=== PATIENT | female | born 1975 | race Caucasian/White ===

== ENCOUNTER 2022-03-15 20:37 | Inpatient (IN) ==
[2022-03-15] MEDS ORDERED: AMPICILLIN/SULBACTAM SOD 3,000 MG in 0.9 % SODIUM CHLORIDE 100 ML IV STA (20:47)
--- NOTE | 2022-03-15 21:10 | Emergency Department Note ---
History of Present Illness General Chief complaint: Animal Bite Stated complaint: CAT BITE ON R HAND, SWELLING Time Seen by Provider: 03/15/22 20:47 History of Present Illness Maximum Pain Intensity: 4 46-year-old female presents to the ED with a chief complaint of a right hand infection. The patient states that she was bitten by a cat where she works at a local [employer]. The patient states that she did start antibiotics yesterday. She has had 3 doses of the antibiotic. Through the day today the patient's redness significant increased even over the past several hours, she states that the redness has increased. She reports some redness traveling up the arm towards the elbow. She also feels some discomfort in the medial proximal arm and axillary area. She states that she felt a little feverish during the day today and took some ibuprofen but did not take her temperature. No vomiting. No additional complaints at this time. The cats immunizations were up-to-date. Home Medications Medication Instructions Recorded Confirmed Type alprazolam 0.25 mg tablet 0.25 mg PO TID PRN Anxiety 03/15/22 03/15/22 History amoxicillin 875 mg-potassium 1 tab PO BID 03/15/22 03/15/22 History clavulanate 125 mg tablet paroxetine HCl 40 mg tablet 40 mg PO DAILY 03/15/22 03/15/22 History Allergies Allergy/AdvReac Type Severity Reaction Status Date / Time No Known Allergies Allergy Unknown Verified 01/22/05 08:58 Past Med/Surg History Medical History (Updated 03/15/22 @ 21:43 by Luna Valdez PA-C) Anxiety and depression Surgical History (Updated 03/15/22 @ 21:43 by Luna Valdez PA-C) History of colposcopy Family History (Updated 03/15/22 @ 21:44 by Luna Valdez PA-C) Other Cancer Diabetes Social History (Updated 03/15/22 @ 21:44 by Luna Valdez PA-C) Smoking Status: Never smoker Hx Alcohol Use: No Hx Substance Use: No Preferred Language: Sinhala Feels Safe at Home: Yes Review of Systems A total of 10 systems reviewed and were otherwise negative Physical Exam Vital Signs Vital Signs - 24 hr 03/15/22 20:38 03/15/22 21:48 Temperature 36.5 C Temperature Source Temporal Artery Scan Pulse Rate 92 H Pulse Rate [Finger] 81 Respiratory Rate 18 18 Respiratory Effort / Characteristics Non-Labored Spontaneous Respiratory Depth Normal Normal Respiratory Pattern Regular Blood Pressure 131/79 Blood Pressure [Right Arm] 126/70 Blood Pressure Mean 96 Blood Pressure Mean [Right Arm] 88 Blood Pressure Position [Right Arm] Sitting Pulse Oximetry 97 96 Oxygen Delivery Method Room Air Room Air Sepsis New/Unexplained Change in Mental Status N/A Sepsis Action Taken by Nursing No Action Required CONSTITUTIONAL/VITAL SIGNS: Reviewed / noted above. GENERAL: Non-toxic in appearance. INTEGUMENTARY: Warm, dry, and [place]. HEAD: Normocephalic. EYES: without scleral icterus or trauma. ENT/OROPHARYNX: clear and moist. LYMPHADENOPATHY/NECK: Is supple without lymphadenopathy or meningismus. RESPIRATORY: Clear to auscultation bilaterally. No increased work of breathing. CARDIOVASCULAR: Regular rate and rhythm. EXTREMITIES: Warm and well perfused. The patient has erythema to the right dorsal hand involving the right thumb where she was bitten as well as the dorsal aspect of the hand on the radial side to the area of the fourth metacarpal. The erythema and swelling also travels proximally to about the wrist. There is a red streak traveling up the medial right forearm to just distal to the elbow. NEUROLOGICAL: Intact without focal deficits. PSYCHIATRIC: normal affect. MUSCULOSKELETAL: Normally developed with good muscle tone. TRIAGE NURSING DOCUMENTATION REVIEWED. Course Administered Medications Ampicillin Sodium/Sulbactam Sodium 3,000 mg/ Sodium Chloride 108 mls @ 200 mls/hr IV NOW STA; Protocol Stop: 03/15/22 21:19 Last Admin: 03/15/22 21:39 Dose: 200 mls/hr Documented By: RASHAWN Medical Decision Making Differential Diagnosis Cellulitis, abscess, MRSA infection, DVT, necrotizing fasciitis, dermatitis, drug eruption, allergic reaction, as well as other pathologies. Medical Records Attestation: I reviewed the patient's medical records. Home Medications Current Medication List: was personally reviewed by me Laboratory Data Attestation: I reviewed the patient's lab results. Result diagrams: 03/15/22 21:25 03/15/22 21:25 Lab Results 03/15/22 Range/Units 21:25 WBC 11.93 H (4.8-10.8) K/ul RBC 4.32 (3.93-5.22) M/uL Hgb 13.4 (12.0-16.0) g/dl Hct 39.5 (34.1-44.9) % MCV 91.4 (80.0-100.0) fL MCH 31.0 (25.0-34.0) pg MCHC 33.9 (32.0-36.0) g/dL RDW Std Deviation 41.0 (36.4-46.3) fL RDW Coeff of Le 12.1 (11.5-14.5) % Plt Count 203 (130-400) K/uL MPV 10.6 (9.4-12.3) fL Immature Gran % (Auto) 0.4 % Neut % (Auto) 79.6 % Lymph % (Auto) 13.2 % [place] % (Auto) 5.1 % Eos % (Auto) 1.3 % Baso % (Auto) 0.4 % Neut # (Auto) 9.49 H (1.4-6.5) K/uL Lymph # (Auto) 1.57 (1.2-3.4) K/uL [place] # (Auto) 0.61 (0.24-0.82) K/uL Eos # (Auto) 0.16 (0-0.50) K/uL Baso # (Auto) 0.05 (0-0.2) K/uL Immature Gran # (Auto) 0.05 H (0.00-0.02) K/uL MDM Narrative 46-year-old female presents with a progressively worsening cellulitis of the right hand with some lymphangitis changes. She has taken 3 doses of Augmentin already. Despite this the swelling and redness is worsening. She was started on Unasyn. CBC was unremarkable. Impression & Plan Bite by animal, Cellulitis of hand, right, Lymphangitis Discharge Plan Visit Data Chief Complaint: Animal Bite Stated Complaint: CAT BITE ON R HAND, SWELLING ED Provider: Osmel Granados Discharge Problem: Bite by animal, Cellulitis of hand, right, Lymphangitis Patient Disposition: Being Evaluated by Hospitalist Forms Stand Alone Forms: [facility] Prescriptions Prescriptions: No Action alprazolam 0.25 mg tablet 0.25 mg PO TID PRN (Reason: Anxiety) paroxetine HCl 40 mg tablet 40 mg PO DAILY amoxicillin-pot clavulanate 875-125 mg tablet 1 tab PO BID Rx Instructions: Started 03/14/22, 10 day course Referrals Referrals: Samm Costa MD [Primary Care Provider] -
--- NOTE | 2022-03-15 21:26 | History & Physical Report ---
Date of Service March 15, 2022 Assessment & Plan (1) Bite by animal: (2) Cellulitis of hand, right: Plan: Patient is 46 y/o F with PMH anxiety, depression presented to ER with c/o cat bite to right hand yesterday. Cat up to date with vaccinations. Had tetanus shot 03/14/22. Started Augmentin yesterday however increased edema and redness to right hand. In ER vitals stable. Labs still pending Blood cultures pending In ER given Unasyn Assessment and plan per Dr Alatorre. See addendum. (3) Anxiety and depression: History of Present Illness Chief Complaint: cat bite Primary Care Provider: Samm Costa MD Patient is 46 y/o F with PMH anxiety, depression presented to ER with c/o cat bite to right hand yesterday. Reports bite to right thumb. 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 Saw PCP yesterday, was started on Augmentin. Took 3 doses however has had increased erythema to right thumb and hand. Tactile fever, didn't take her temperature. Took ibuprofen with some relief. Tetanus shot yesterday at PCP's office. Denies diaphoresis, N/V/D/C, JIMÉNEZ, dizziness, syncope, vision changes, neck pain, CP, SOB, orthopnea, palpitations, cough, sore throat, choking, otalgia, rhinorrhea, abdominal pain, paresthesias, weakness, extremity weakness, extremity edema, other rashes, urinary symptoms. Allergies Allergy/AdvReac Type Severity Reaction Status Date / Time No Known Allergies Allergy Unknown Verified 01/22/05 08:58 Home Medications Medication Instructions Recorded Confirmed Type alprazolam 0.25 mg tablet 0.25 mg PO TID PRN Anxiety 03/15/22 03/15/22 History amoxicillin 875 mg-potassium 1 tab PO BID 03/15/22 03/15/22 History clavulanate 125 mg tablet paroxetine HCl 40 mg tablet 40 mg PO DAILY 03/15/22 03/15/22 History Past Med/Surg History Medical History (Updated 03/15/22 @ 21:43 by Luna Valdez PA-C) Anxiety and depression Surgical History (Updated 03/15/22 @ 21:43 by Luna Schreckengost, PA-C) History of colposcopy Family History (Updated 03/15/22 @ 21:44 by Luna Valdez PA-C) Other Cancer Diabetes Social History (Updated 03/15/22 @ 21:44 by Luna Valdez PA-C) Smoking Status: Never smoker Hx Alcohol Use: No Hx Substance Use: No Preferred Language: Moldovan Feels Safe at Home: Yes Review of Systems Review of Systems: All systems reviewed & are unremarkable except as noted in HPI & below Physical Exam Physical Exam: General: no distress, overweight Head: normocephalic, atraumatic Eyes: conjunctiva non-injected, anicteric ENT: normal inspection external ears, nose, mucous membranes moist Neck: supple, trachea midline Lungs: clear, no respiratory distress, no wheezing/rhonchi/rales CV: RRR, no murmur, no pretibial edema Abd: normal BS, soft, non-tender Ext: no cyanosis, no calf tenderness; RUE: Right thumb with puncture wounds with erythema and edema, dorsal aspect right hand with erythema, edema and warmth, +excoriations right wrist, +red streak forearm Neuro: A&O x 3, no focal deficits noted, normal affect Skin: warm, dry, +tattoos upper extremities Results & Data Results & Data ([facility]) Vital Signs (Past 12 Hours) Vital Signs Temp Pulse Resp BP Pulse Ox O2 Del Method 03/15/22 20:38 36.5 C 92 H 18 131/79 97 Room Air Supervising Physician Co-Signing Physician Notes IM ATTENDING : Patient seen and examined. History obtained from patient and records. Preceding documentation by Ms. Luna Valdez PA-C reviewed. FINAL ASSESSMENT AND PLAN as follows : Right hand cellulitis secondary to cat bite Now extending to right forearm Failed outpatient treatment No sepsis for now Rule out abscess Anxiety/mood disorder at baseline Hypothyroidism, euthyroid as of recent outpatient TSH, currently not on maintenance medications Hyperglycemia rule out DM GMF Unasyn CT right hand May need Orthopedics evaluation. Check hemoglobin A1c DVT prophylaxis per Lovenox subcu Full code Text document was generated using [employer] voice recognition software. It may contain grammatical or spelling errors. Kindly contact undersigned for clarification of any documentation item in question.
[2022-03-15 21:46] LABS: Basophils # (auto) 0.05 K/uL (0-0.2); Basophils % (auto) 0.4 %; Eosinophils # (auto) 0.16 K/uL (0-0.50); Eosinophils % (auto) 1.3 %; Hematocrit (blood only) 39.5 % (34.1-44.9); Hemoglobin 13.4 g/dl (12.0-16.0); Immature Granulocytes # (auto) 0.05 K/uL (0.00-0.02); Immature Granulocytes % (auto) 0.4 %; Lymphocytes # (auto) 1.57 K/uL (1.2-3.4); Lymphocytes % (auto) 13.2 %; Mean Corpuscular Hgb Conc 33.9 g/dL (32.0-36.0); Mean Corpuscular Volume 91.4 fL (80.0-100.0); Mean Platelet Volume 10.6 fL (9.4-12.3); Monocytes # (auto) 0.61 K/uL (0.24-0.82); Monocytes % (auto) 5.1 %; Neutrophils # (auto) 9.49 K/uL (1.4-6.5); Neutrophils % (auto) 79.6 %; Platelet Count 203 K/uL (130-400); RDW Coefficient of Variation 12.1 % (11.5-14.5); Red Blood Count 4.32 M/uL (3.93-5.22); White Blood Count 11.93 K/ul (4.8-10.8)
[2022-03-15] MEDS ORDERED: SODIUM CHLORIDE 0.9% 1000ML 1,000 ML IV STA (21:46)
[2022-03-15 22:09] LABS: Albumin Globulin Ratio 1.7 (0.9-2); BUN Creatinine Ratio 19.5 (10-20); Bilirubin,Total 0.6 mg/dl (0.2-1.0); Calcium 8.3 mg/dl (8.5-10.1); Creatinine Clr Calc Pharmacy 103.7 ml/min; Est GFR (African American) 106.6 ml/min; Est GFR (Non-African American) 91.9 ml/min; Globulin 2.4 gm/dl (2.5-4.0); Potassium 3.6 mmol/L (3.5-5.1); Total Protein 6.4 gm/dl (6.0-8.3)
[2022-03-15] MEDS ORDERED: PROMETHAZINE HCL 12.5 MG in SODIUM CHLORIDE 0.9% 50 ML IV PRN (22:26)
[2022-03-15] MEDS ORDERED: IBUPROFEN 200 MG TAB PO PRN (22:26)
[2022-03-15] MEDS ORDERED: KETOROLAC TROMETHAMINE 15 MG/ML VIAL IV ONE (22:26)
[2022-03-15] MEDS ORDERED: KETOROLAC TROMETHAMINE 15 MG/ML VIAL IV PRN (22:26)
[2022-03-15] MEDS ORDERED: CALCIUM GLUCONATE 1,000 MG/60 ML BAG IV STA (23:07)
[2022-03-15] MEDS ORDERED: CALCIUM GLUCONATE 1000 MG/60 ML NSS IV ONE (23:13)
[2022-03-16] MEDS ORDERED: OPTIRAY 300 100mL IV ONE (00:44)
[2022-03-16] MEDS ORDERED: ALPRAZolam 0.25 MG TABLET PO PRN (00:55)
[2022-03-16] MEDS: AMPICILLIN/SULBACTAM SOD 3,000 MG in 0.9 % SODIUM CHLORIDE 100 ML IV SCH ×3 (04:11→17:04)
[2022-03-16] MEDS: ACETAMINOPHEN 325 MG TAB PO PRN ×2 (04:51→15:43)
--- NOTE | 2022-03-16 07:05 | CT Scan Report ---
CT OF THE RIGHT HAND WITH CONTRAST CLINICAL HISTORY: Right hand swelling following cat bite. COMPARISON STUDY: No previous studies for comparison. TECHNIQUE: Axial images of the right hand were obtained following intravenous injection of 94 cc of O ptiray 300. Sagittal and coronal reconstructions were viewed. Automated exposure control was utilized for the study. A dose lowering technique was utilized adhering to the principles of ALARA. FINDINGS: Alignment of right hand is anatomic. No acute fracture. There is no CT evidence for acute o steomyelitis. No rim-enhancing fluid collection within the right hand or wrist is identified to sugge st an abscess. Right hand and wrist soft tissue swelling with subcutaneous fluid is greater dorsally. No soft tissue gas is present. Carpal bones are intact. Distal right radius and ulna are intact. IMPRESSION: Right hand and wrist subcutaneous edema, greater dorsally. This suggests cellulitis. No rim-enhancing fluid collection to suggest abscess. No soft tissue gas. No evidence for acute osteomyelitis by CT. ACT 112: Negative or not required by law. Electronically signed by: Sean White M.D. 03/16/2022 7:03 CLARE
[2022-03-16 07:18] LABS: Basophils # (auto) 0.04 K/uL (0-0.2); Basophils % (auto) 0.4 %; Eosinophils # (auto) 0.15 K/uL (0-0.50); Eosinophils % (auto) 1.6 %; Hematocrit (blood only) 38.2 % (34.1-44.9); Hemoglobin 12.9 g/dl (12.0-16.0); Immature Granulocytes # (auto) 0.03 K/uL (0.00-0.02); Immature Granulocytes % (auto) 0.3 %; Lymphocytes % (auto) 13.6 %; Mean Corpuscular Hemoglobin 30.9 pg (25.0-34.0); Mean Corpuscular Hgb Conc 33.8 g/dL (32.0-36.0); Mean Corpuscular Volume 91.6 fL (80.0-100.0); Mean Platelet Volume 10.7 fL (9.4-12.3); Monocytes % (auto) 6.3 %; Neutrophils # (auto) 7.45 K/uL (1.4-6.5); Neutrophils % (auto) 77.8 %; Platelet Count 169 K/uL (130-400); RDW Coefficient of Variation 12.4 % (11.5-14.5); RDW Standard Deviation 41.3 fL (36.4-46.3); Red Blood Count 4.17 M/uL (3.93-5.22); White Blood Count 9.57 K/ul (4.8-10.8)
[2022-03-16 07:37] LABS: Calcium 8.1 mg/dl (8.5-10.1); Creatinine Clr Calc Pharmacy 125.6 ml/min; Est GFR (African American) 123.8 ml/min; Est GFR (Non-African American) 106.8 ml/min; Potassium 4.1 mmol/L (3.5-5.1)
[2022-03-16 08:08] LABS: Estimated Average Glucose 111 mg/dl; Hemoglobin A1C 5.5 % (4.5-5.6)
[2022-03-16] MEDS: PARoxetine HCL 20 MG TAB PO SCH (08:28)
[2022-03-16] MEDS ORDERED: ENOXAPARIN INJ 40 MG/0.4 ML SYR SQ SCH (09:00)
--- NOTE | 2022-03-16 09:58 | Hospitalist Progress Note ---
Date of Service March 16, 2022 Assessment & Plan (1) Cellulitis of hand, right: (2) Cat bite: Plan 46 year old female who presented to the ED with worsening right hand cellulitis after cat bite on , worsening despite OP Augmentin x3 doses. 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 Cat bite right thumb (03/14) with right hand cellulitis - Received OP augmentin for 3 days but her cellulitis was rapidly progressing so came to the ED 03/15 and was started on Unasyn - Doesn't meet SIRS or sepsis critieria. No fever, mild leucocytosis resolved. Well looking - CT hand 03/15- Right hand and wrist subcutaneous edema, greater dorsally. This suggests cellulitis. No rim-enhancing fluid collection to suggest abscess. No soft tissue gas. No evidence for acute osteomyelitis by CT. - Continue Unasyn. Continue betadine soaks and RUE elevation. Monitor clinically for improvement. Per RN pus was able to express with soaks and was sent for culture - If clinically worsens, will need to consider MRI right hand and plastic/ID eval. - The cat is uptodate with vaccination and she is uptodate with her tetanus shot 03/14. Anxiety- on paxil. xanax prn DVT ppx- sc lovenox Dispo- Continue IV antibiotics- anticipate will need at least 24-48 more hours of IV ABx. Follow clx results Admission and Anticipated Discharge Date Admission Date: March 15, 2022 Subjective Still has pain and swelling of right upper extremity. Redness has extended beyond the mode she made the other day. No fever, chills, N/V. Physical Exam Physical Exam: General: Lying comfortably in bed, not in distress, on room air HEENT: EOMI, KLILIAN, MMM Chest: Clear breath sounds bilaterally, no wheezes or crackles CVS: Regular rate and rhythm, normal heart sounds, no murmur Abdomen: Soft, non tender, not distended, normal bowel sounds Neuro: Awake, alert, oriented, conversing well, non focal Extremities: Right thumb with puncture wound. RUE with cellulitis extending upto the dorsum of right hand and forearm. Able to make a fist with some difficulty. Tattoos in her right forearm make it difficult to appreciate the extent of cellulitis Results & Data Results & Data ([facility] [place]) Vital Signs (Past 12 Hours) Vital Signs Temp Pulse Resp BP Pulse Ox O2 Del Method 03/16/22 07:52 36.8 C 70 16 127/77 97 Room Air 03/16/22 00:55 36.9 C 73 16 135/77 97 03/16/22 00:58 36.9 C 73 16 135/77 97 Room Air 03/15/22 23:29 Room Air 03/15/22 23:23 69 20 126/89 97 Room Air Laboratory Results Short CBC 03/15/22 03/16/22 Range/Units 21:25 06:37 WBC 11.93 H 9.57 (4.8-10.8) K/ul Hgb 13.4 12.9 (12.0-16.0) g/dl Hct 39.5 38.2 (34.1-44.9) % Plt Count 203 169 (130-400) K/uL BMP 03/15/22 03/16/22 21:25 06:37 Sodium 135 L 139 Potassium 3.6 4.1 Chloride 103 109 H Carbon Dioxide 25 23 BUN 15 12 Creatinine 0.77 0.63 Glucose 112 H 123 H Calcium 8.3 L 8.1 L Liver Function 03/15/22 Range/Units 21:25 Total Bilirubin 0.6 (0.2-1.0) mg/dl AST 15 (13-39) U/L ALT 21 (7-52) U/L Alkaline Phosphatase 83 (34-104) U/L Albumin 4.0 (3.4-5.0) gm/dl Diagnostic Findings Hand CT 03/15/22 22:22 CT OF THE RIGHT HAND WITH CONTRAST CLINICAL HISTORY: Right hand swelling following cat bite. COMPARISON STUDY: No previous studies for comparison. TECHNIQUE: Axial images of the right hand were obtained following intravenous injection of 94 cc of Optiray 300. Sagittal and coronal reconstructions were viewed. Automated exposure control was utilized for the study. A dose lowering technique was utilized adhering to the principles of ALARA. FINDINGS: Alignment of right hand is anatomic. No acute fracture. There is no CT evidence for acute osteomyelitis. No rim-enhancing fluid collection within the right hand or wrist is identified to suggest an abscess. Right hand and wrist soft tissue swelling with subcutaneous fluid is greater dorsally. No soft tissue gas is present. Carpal bones are intact. Distal right radius and ulna are intact. IMPRESSION: Right hand and wrist subcutaneous edema, greater dorsally. This suggests cellulitis. No rim-enhancing fluid collection to suggest abscess. No soft tissue gas. No evidence for acute osteomyelitis by CT. ACT 112: Negative or not required by law. Electronically signed by: Sean White M.D. 03/16/2022 7:03 AMZ Medications Administered Current Inpatient Medications Acetaminophen (Acetaminophen 325 Mg Tab) 650 mg PO Q4H PRN PRN Reason: Pain or Fever Stop: 04/15/22 00:54 Last Admin: 03/16/22 04:51 Dose: 650 mg Alprazolam (Alprazolam 0.25 Mg Tablet) 0.25 mg PO TID PRN PRN Reason: Anxiety Stop: 04/15/22 00:54 Enoxaparin Sodium (Enoxaparin Inj 40 Mg/0.4 Ml Syr) 40 mg SQ QAM YAYA Stop: 04/15/22 08:59 Last Admin: 03/16/22 08:29 Dose: Not Given Promethazine HCl 12.5 mg/ (Sodium Chloride) 50.5 mls @ 202 mls/hr IV Q6H PRN PRN Reason: Nausea And Vomiting Stop: 04/14/22 22:25 Ampicillin Sodium/Sulbactam Sodium 3,000 mg/ Sodium Chloride 108 mls @ 200 mls/hr IV Q6H [facility]; Protocol Stop: 03/23/22 03:59 Last Infusion: 03/16/22 09:02 Dose: Infused Ibuprofen (Ibuprofen 200 Mg Tab) 200 mg PO Q6H PRN PRN Reason: Mild Pain Stop: 04/14/22 22:25 Last Admin: 03/15/22 23:17 Dose: 200 mg Ketorolac Tromethamine (Ketorolac Tromethamine 15 Mg/Ml Vial) 15 mg IV Q4H PRN PRN Reason: Pain Stop: 03/20/22 22:25 Last Admin: 03/16/22 09:59 Dose: 15 mg Paroxetine HCl (Paroxetine Hcl 20 Mg Tab) 40 mg PO DAILY YAYA Stop: 04/15/22 08:59 Last Admin: 03/16/22 08:28 Dose: 40 mg
[2022-03-16] MEDS ORDERED: oxyCODONE HCL IR 5 MG TAB (IMMEDIATE RELEASE) PO PRN (13:24)
[2022-03-16] MEDS ORDERED: VANCOMYCIN CONSULT ACTIVE PRN (14:01)
[2022-03-16] MEDS ORDERED: HYDROmorphone INJ 0.5 MG/0.5 ML SYR ONE (14:23)
[2022-03-16] MEDS ORDERED: KETOROLAC 30 MG/ML VIAL IV PRN (14:35)
--- NOTE | 2022-03-16 14:45 | Pharmacy Report ---
Pharmacy PK ABX Note - Date of Service March 16, 2022 - Assessment and Plan Assessment 46 year old F receiving vancomycin/Unasyn for treatment of cat bite. Pertinent microbiologic data includes: N//A. Day # 1 of antimicrobial therapy. Plan Vancomycin * Loading dose: 2250 mg IV x 1 * Maintenance dose: 1500 mg IV every 24 hours * Regimen is predicted to achieve target AUC/CIERA of 400-600 mg/L.hr * Level to be ordered based upon duration of therapy Pharmacy will continue to follow and will adjust dose/frequency as necessary. Thank you. Pharmacy has transitioned to AUC monitoring for vancomycin. AUC/CIERA is the preferred PK/PD target and is associated with decreased risk of nephrotoxicity compared to traditional trough targets.
[2022-03-16] MEDS ORDERED: VANCOMYCIN HCL 2,250 MG in SODIUM CHLORIDE 0.9% 500 ML IV ONE ×2 (15:00→18:00)
[2022-03-16] MEDS ORDERED: GADOBUTROL 30ML VIAL IV ONE (17:14)
--- NOTE | 2022-03-16 18:10 | History and Physical Report ---
CHIEF COMPLAINT: Special attention to right thumb infection. HISTORY OF PRESENT ILLNESS: This is a 46-year-old female, who is status post cat bite to the right t humb on . 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 She noted increasing pain and swelling. S he was started on Augmentin and had 3 doses with increasing redness and pain in the extremity, partic ularly in the thumb. She has complaints of severe pain with thumb motion. Denies other systemic sym ptoms currently. PAST MEDICAL HISTORY: History of anxiety, depression. MEDICATIONS: 1. Alprazolam. 2. Augmentin for this injury. 3. Paroxetine. SOCIAL HISTORY: Does not smoke. REVIEW OF SYSTEMS: Denies diabetes. PHYSICAL EXAMINATION: Right thumb exam, she has puncture wound over the dorsal MP joint and over the volar aspect of the flexor tendon in the region of the oblique miguel. She has pain with passive ex tension of the thumb. She has fusiform swelling and tenderness directly over the flexor tendon sheat h of the thumb. She holds the finger in a flexed posture. She has severe pain with passive extensio n of the thumb. She has no significant tenderness in the thenar webspace. She has significant pain with MP range of motion. 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 Right hand septic flexor tenosynovitis of the thumb. 2. Possible right MP joint septic arthritis. PLAN: Discussed findings and treatment with her and I felt this likely represents early septic flexo r tenosynovitis, which is worsening with time. I feel this is best served with surgical treatment an d I feel this is unlikely to get better with antibiotics alone. We will plan for, 1. Right thumb irrigation and debridement of septic flexor tenosynovitis. 2. Right thumb possible MP joint arthrotomy and drainage. 3. Possible I and D of abscess, right hand. She has pending MRI. We will evaluate this further. We will [facility] when she is n.p.o. The risks and benefits have been discussed including, but not limited to, risk of infection, nerve in jury, stiffness, loss of motion, failure to improve, etc. Reasonable outcomes and options of treatmen t were discussed. An explanation of appropriate alternatives to the procedure that may be advantageou s were discussed and their risks and benefits, as well as the risks and benefits of not proceeding wi treatment. I offered to answer any additional inquiries concerning the treatment involved. All the patients questions were answered. The patient is agreeable, understanding of the treatment plan and alternatives, and wishes to proceed with the treatment plan. We will hold her subcutaneous Lovenox. Job ID: [id number]
--- NOTE | 2022-03-16 19:40 | Magnetic Resonance Report ---
MRI OF THE RIGHT HAND COMBO CLINICAL HISTORY: Cat bite infection. COMPARISON STUDY: CT scan of the right hand dated 03/16/2022. TECHNIQUE: MRI of the right hand is performed utilizing various T1 and T2-weighted sequences in axial , sagittal, and coronal planes. Contrast-enhanced sequences are acquired following the IV administrat ion of 9 mL of gadolinium contrast. FINDINGS: There is no MRI evidence of fracture. No marrow edema is seen typical for osteomyelitis. Mi nimal cystic degenerative change is present in the head of the fifth metatarsal. There is significant soft tissue edema identified around the hand, greatest dorsally. No organized/peripherally enhancing fluid collection is seen to indicate abscess. The visualized flexor and extensor tendons appear inta ct. There is fluid and enhancement seen around several of the extensor tendons, likely representing t enosynovitis. The regional musculature is normal in bulk and signal intensity. IMPRESSION: 1. No acute bony abnormality is identified. 2. Significant soft tissue edema is present in the right hand, greatest dorsally. The appearance is t ypical for cellulitis. 3. There is no organized fluid collection to indicate abscess. 4. There is evidence of tenosynovitis of the extensor tendons. Dictated: 03/16/2022 6:06 PM Transcribed: 03/16/2022 7:35 PM Charlette [id number] [email or web address] Electronically signed by: Toni Gonzalez M.D. 03/16/2022 7:39 PM
[2022-03-16] MEDS ORDERED: diphenhydrAMINE 50 MG/ML VIAL IV STA (20:09)
[2022-03-16] MEDS ORDERED: DOXYCYCLINE HYCLATE 100 MG in DEXTROSE 5% 100 ML IV STA (20:09)
--- NOTE | 2022-03-16 20:09 | Communication Note ---
Date of Service: March 16, 2022 Patient with generalized pruritus during vancomycin infusion as per RN. No chest pain, no SOB, no wheezing. AP Vancomycin hypersensitivity IV Benadryl now Hold vancomycin and add to patient's allergy/ADR list. Doxycycline in place of vancomycin for MRSA coverage. Will relay to AM provider.
[2022-03-16] MEDS: HYDROmorphone INJ 0.5 MG/0.5 ML SYR IV PRN (23:25)
[2022-03-17] MEDS: AMPICILLIN/SULBACTAM SOD 3,000 MG in 0.9 % SODIUM CHLORIDE 100 ML IV SCH ×5 (00:23→23:16)
[2022-03-17] MEDS ORDERED: VANCOMYCIN HCL 1,500 MG in SODIUM CHLORIDE 0.9% 500 ML IV SCH (04:00)
[2022-03-17] MEDS ORDERED: SODIUM CHLORIDE 0.9% 1000ML 1,000 ML IV ONE (05:10)
[2022-03-17] MEDS ORDERED: fentaNYL citrate 100 MCG/2 ML VIAL ONE ×2 (06:56→08:10)
[2022-03-17] MEDS ORDERED: MIDAZOLAM HCL 1 MG/ML 2ML VIAL ONE (06:56)
[2022-03-17] MEDS ORDERED: BUPIVACAINE 0.5 % 5 MG/1 ML MPF 30ML VIAL ONE (06:56)
--- NOTE | 2022-03-17 07:09 | Anesthesiology Consultation ---
Date of Service March 17, 2022 Assessment & Plan (1) Encounter for pre-operative examination: Chart Review Chart Review: Acceptable Risk for Surgery History Surgery Operation Date: 03/17/22 07:30 Proposed Procedures p Incision and Drainage Right Hand and Right Thumb(Right) - Inder Kim MD Height/Weight Height: 5 ft 6 in Weight: 91.231 kg Allergies Allergy/AdvReac Type Severity Reaction Status Date / Time vancomycin Allergy Mild Verified 03/16/22 20:08 Medications Home Medications Medication Instructions Recorded Confirmed Last Taken alprazolam 0.25 mg tablet 0.25 mg PO TID PRN Anxiety 03/15/22 03/15/22 Unknown amoxicillin 875 mg-potassium 1 tab PO BID 03/15/22 03/15/22 03/15/22 clavulanate 125 mg tablet paroxetine HCl 40 mg tablet 40 mg PO DAILY 03/15/22 03/15/22 03/15/22 Active Medications Generic Name Dose Route Start Last Admin Trade Name Freq PRN Reason Stop Dose Admin Acetaminophen 650 mg 03/16/22 00:55 03/16/22 15:43 Acetaminophen 325 Mg Tab PO 04/15/22 00:54 650 mg Q4H PRN Administration Pain or Fever Enoxaparin Sodium 40 mg 03/16/22 09:00 03/16/22 08:29 Enoxaparin Inj 40 Mg/0.4 Ml Syr SQ 04/15/22 08:59 Not Given QAM YAYA Hydromorphone HCl 0.5 mg 03/16/22 13:29 03/16/22 23:25 Hydromorphone Inj 0.5 Mg/0.5 Ml Syr IV 03/30/22 13:28 0.5 mg Q6H PRN Administration sev pain not controlled w oxy Ampicillin Sodium/Sulbactam 108 mls @ 200 mls/hr 03/16/22 04:00 03/17/22 05:53 Sodium 3,000 mg/ Sodium IV 03/23/22 03:59 Infused Chloride Q6H [facility] Infusion Protocol Sodium Chloride 1,000 mls @ 80 mls/hr 03/17/22 05:10 03/17/22 05:54 Nss 1000ml IV 03/17/22 17:39 80 mls/hr .[id number] ONE Administration Oxycodone HCl 5 - 10 mg 03/16/22 13:24 03/16/22 15:35 Oxycodone Hcl Ir 5 Mg Tab (Immediate Release) PO 03/30/22 13:23 10 mg Q4 PRN Administration mod-sev pain Paroxetine HCl 40 mg 03/16/22 09:00 03/16/22 08:28 Paroxetine Hcl 20 Mg Tab PO 04/15/22 08:59 40 mg DAILY YAYA Administration Past Medical History Medical History Anxiety and depression Past Family History Family History Other Cancer Diabetes Past Surgical History Surgical History History of colposcopy Social History Smoking Status: Never smoker Do You Dip or Chew Tobacco: No Hx Alcohol Use: No Hx Substance Use: No Physical Exam Vital Signs Last Vital Signs Temp 36.9 C 03/16/22 22:22 Pulse 85 03/16/22 22:22 Resp 16 03/16/22 22:22 BP 102/62 03/16/22 22:22 Pulse Ox 96 03/16/22 22:22 O2 Del Method 03/16/22 22:22 Testing Laboratory Results 03/16/22 06:37 03/16/22 06:37 Hemoglobin A1c 5.5 % (4.5-5.6) 03/15/22 21:40 03/15/22 21:25 Aerobic Blood Culture - Preliminary Blood No growth in Aerobic bottle after 24 hours. Anaerobic Blood Culture - Preliminary No growth in Anaerobic bottle after 24 hours. 03/15/22 21:25 Aerobic Blood Culture - Preliminary Blood No growth in Aerobic bottle after 24 hours. Anaerobic Blood Culture - Preliminary No growth in Anaerobic bottle after 24 hours. 03/16/22 11:14 Gram Stain - Final Thumb,Right
[2022-03-17] MEDS ORDERED: fentaNYL citrate 100 MCG/2 ML VIAL IV PRN (07:40)
[2022-03-17] MEDS ORDERED: ATROPINE SULFATE 0.1 MG/ML 10ML SYR IV PRN (07:40)
[2022-03-17] MEDS ORDERED: ONDANSETRON INJ 2 MG/ML 2 ML VIAL IV PRN ×2 (07:40→09:49)
[2022-03-17] MEDS ORDERED: KETOROLAC 30 MG/ML VIAL IV PRN (07:40)
[2022-03-17] MEDS ORDERED: PROMETHAZINE HCL 6.25 MG in SODIUM CHLORIDE 0.9% 50 ML IV PRN (07:40)
--- NOTE | 2022-03-17 07:44 | History & Physical Bridge Note ---
Date of Service March 17, 2022 History & Physical Bridge Note I have examined the patient, reviewed the History & Physical and in the interval since the performance of the History & Physical I have noted the following changes of clinical significance: no changes noted I saw the patient in preoperative holding area we will plan for: Right hand irrigation and debridement of septic flexor tenosynovitis, possible arthrotomy and drainage of septic MP joint of the thumb
[2022-03-17] MEDS ORDERED: LIDOCAINE 2% 2 ML VIAL/AMP(20MG/ML) INFIL ONE (08:00)
[2022-03-17] MEDS ORDERED: PROPOFOL IV EMULSION 10 MG/ML 20 ML VIAL IV ONE (08:00)
[2022-03-17] MEDS ORDERED: ONDANSETRON INJ 2 MG/ML 2 ML VIAL ONE (08:00)
[2022-03-17] MEDS ORDERED: DEXAMETHASONE SOD INJ 4 MG/ML VIAL ONE (08:00)
--- NOTE | 2022-03-17 08:39 | Post Operative Brief Note ---
Immediate Post Op Note v1 Date of Surgery March 17, 2022 Pre & Post Diagnosis Operation Date: 03/17/22 07:30 Pre-Op Diagnosis: Right hand septic flexor tenosynovitis of the thumb. Right metacarpophalangeal joint septic arthritis. Post-Op Diagnosis: Right hand septic flexor tenosynovitis of the thumb. Right metacarpophalangeal joint septic arthritis. I identified the patient and participated in the time-out.: Yes Procedure Operation Date: 03/17/22 07:30 Actual Procedures p Incision and Drainage Right Thumb(Right) - Inder Kim MD Surgeon Inder Kim MD [employer] EUGENIA Graham Estimated Blood Loss 5 Findings Consistent with Post-Op Diagnosis A small amount of gross purulence in the flexor tendon system. Moderate pu rulent drainage from the puncture wound on the ulnar aspect of the thumb. Small effusion in the joint concerning for early septic MP joint.
[2022-03-17] MEDS ORDERED: DOXYCYCLINE HYCLATE 100 MG CAP PO SCH (09:00)
--- NOTE | 2022-03-17 09:28 | Anesthesiology Progress Note ---
Date of Service March 17, 2022 Anesthesia Post Procedure Vital Signs Vital Signs: Temp Pulse Pulse Resp BP BP Pulse Ox 03/17/22 09:25 70 16 107/60 98 03/17/22 09:15 76 16 119/73 97 03/17/22 09:05 79 18 111/73 97 03/17/22 08:58 36.5 C 87 18 140/69 96 03/17/22 07:09 36.9 C 75 16 102/69 96 03/16/22 22:22 36.9 C 85 16 102/62 96 03/16/22 17:03 37.0 C 03/16/22 15:20 38.2 C H 91 H 16 121/74 96 O2 Del Method O2 Flow Rate 03/17/22 09:25 Nasal Cannula 2 03/17/22 09:15 Oxymask 5 03/17/22 09:05 Oxymask 5 03/17/22 08:58 Oxymask 5 03/17/22 07:09 Room Air 03/16/22 22:22 Room Air 03/16/22 17:03 03/16/22 15:20 Room Air Pain Intensity Right Arm: Pain Intensity: 7 Transfer of Care Handoff Completed per policy Notes Mental Status: alert / awake / arousable Patient Amnestic to Procedure: Yes Nausea / Vomiting: adequately controlled Pain: adequately controlled Airway Patency, RR, SpO2: stable & adequate BP & HR: stable & adequate Hydration State: stable & adequate Anesthetic Complications: no major complications apparent
--- NOTE | 2022-03-17 09:35 | Operative Report (OR) ---
DATE OF PROCEDURE: 03/17/2022. PREOPERATIVE DIAGNOSES: 1. Right thumb septic flexor tenosynovitis. 2. Right thumb septic metacarpophalangeal joint. POSTOPERATIVE DIAGNOSES: 1. Right thumb septic flexor tenosynovitis. 2. Right thumb septic metacarpophalangeal joint. 3. Right thumb extensor tenosynovitis. PROCEDURE: 1. Right thumb irrigation and debridement, septic flexor tenosynovitis. 2. Right thumb arthrotomy and drainage, septic metacarpophalangeal joint. 3. Right thumb extensor tenosynovectomy. SURGEON: Inder Kim MD. INDICATIONS: Samm Albright PA-C, who was necessary for prepping, draping, retraction, exposure, an d closure. FINDINGS: Gross purulence from the ulnar sided puncture wound. Gross infection in the flexor tendon sheath of the thumb. Small amount of fluid seen at the MP joint with moderate extensor tenosynoviti s. INDICATIONS: A female, presenting with above-mentioned injury. She presents with progressive pain a nd swelling of the thumb. She presents with a positive [place] signs. She presents for the above-me ntioned work. The risks and benefits have been discussed including, but not limited to, risk of infection, nerve in jury, stiffness, loss of motion, failure to improve, etc. Reasonable outcomes and options of treatmen t were discussed. An explanation of appropriate alternatives to the procedure that may be advantageou s were discussed and their risks and benefits, as well as the risks and benefits of not proceeding wi th treatment. I offered to answer any additional inquiries concerning the treatment involved. All the patients questions were answered. The patient is agreeable, understanding of the treatment plan and alternatives, and wishes to proceed with the treatment plan. DESCRIPTION OF PROCEDURE: I made a zigzag Vi incision over the A1 miguel of the thumb. Dissecti on was carried down through the skin and subcutaneous tissue. I opened the A1 miguel, protecting the digital nerves. There was moderate amount of fluid consistent with infection in the flexor tendon s alverto consistent with septic flexor tenosynovitis. I made a second incision over the radial aspect o f the thumb just distal to the IP joint. I opened the flexor tendon sheath with blunt dissection in that area. I then performed through and through irrigation from the proximal incision to the distal incision until I have clear fluid come back. I inspected the patient's ulnar-sided puncture wound. There was a moderate to large amount of purule nce in the area. I did send this for culture as well as deep culture from the flexor tendon sheath. I irrigated the area copiously with 2 liters of normal saline and debridement of skin, subcutaneous tissue and fascia was performed. Attention was focused on the dorsal aspect of the hand. The patient had a laceration just distal to the MP joint and I extended this proximally, identified the extensor tendon. There was a moderate am ount of extensor tenosynovitis. I performed extensor tenosynovectomy, removing extensor tenosynoviti s with scissors and scalpel. Patient had a small effusion, palpable at the MP joint. I elevated the extensor tendon and made a small arthrotomy in the right thumb MP joint. There was small amount of fluid, which was seen there as well. I performed arthrotomy and drainage of MP joint and I irrigated this out with 2 liters of normal saline. Remaining incisions were irrigated copiously. The tourniq uet was let down. Hemostasis was obtained with a bipolar electrocautery. Surgical incisions were cl osed with 4-0 nylon in a simple fashion. I packed the ulnar-sided incision with about 2 inches of io doform gauze packing. The patient was placed in a soft dressing, sent to the PACU in stable conditio n. POSTOPERATIVE PLAN: We will continue empiric antibiotics. We will adjust antibiotics pending kyle es and will continue to follow clinical course. Job ID: [id number]
[2022-03-17] MEDS ORDERED: bisacodyL 10 MG SUPP PR PRN (09:49)
[2022-03-17] MEDS ORDERED: MAGNESIUM HYDROXIDE SUSP 30 ML UDC PO PRN (09:49)
[2022-03-17] MEDS ORDERED: SODIUM CHLORIDE 0.9% 1000ML 1,000 ML IV SCH (09:49)
[2022-03-17] MEDS ORDERED: NALOXONE HCL 0.4 MG/1 ML VIAL/CARP IV PRN (09:49)
[2022-03-17] MEDS ORDERED: ALBUTEROL 0.083% NEBU SOLN 3 ML VIAL NEB PRN (10:06)
[2022-03-17] MEDS: DAPTOmycin 300 MG in SYRINGE 0 ML IV SCH (10:10)
[2022-03-17] MEDS: HYDROmorphone INJ 0.5 MG/0.5 ML SYR IV PRN (10:34)
--- NOTE | 2022-03-17 10:38 | XRay Report ---
XR chest 1V portable CLINICAL HISTORY: dyspnea, hypoxia COMPARISON STUDY: No previous studies for comparison. FINDINGS: Lung volumes are normal. Lungs are clear. There is no pneumothorax or pleural effusion. Car diac size is normal. Mediastinal contours are normal. There is mild interstitial prominence. IMPRESSION: Mild interstitial prominence. This may be within normal limits however an infectious pro cess or less likely pulmonary would be difficult to exclude. ACT 112: Negative or not required by law. Electronically signed by: Sean White M.D. 03/17/2022 10:36 AM
--- NOTE | 2022-03-17 10:46 | Anesthesiology Progress Note ---
Date of Service March 17, 2022 Anesthesia Post Procedure Vital Signs Vital Signs: Temp Pulse Pulse Resp BP BP Pulse Ox 03/17/22 10:20 37.0 C 82 16 109/73 94 03/17/22 10:24 9 L 88 H 03/17/22 09:50 36.8 C 73 18 112/76 94 03/17/22 09:34 36.8 C 03/17/22 09:25 70 16 107/60 98 03/17/22 09:15 76 16 119/73 97 03/17/22 09:05 79 18 111/73 97 03/17/22 08:58 36.5 C 87 18 140/69 96 03/17/22 07:09 36.9 C 75 16 102/69 96 03/16/22 22:22 36.9 C 85 16 102/62 96 03/16/22 17:03 37.0 C 03/16/22 15:20 38.2 C H 91 H 16 121/74 96 O2 Del Method O2 Flow Rate 03/17/22 10:20 Nasal Cannula 2 03/17/22 10:24 Nasal Cannula 5 03/17/22 09:50 Nasal Cannula 5 03/17/22 09:34 03/17/22 09:25 Nasal Cannula 2 03/17/22 09:15 Oxymask 5 03/17/22 09:05 Oxymask 5 03/17/22 08:58 Oxymask 5 03/17/22 07:09 Room Air 03/16/22 22:22 Room Air 03/16/22 17:03 03/16/22 15:20 Room Air Pain Intensity Right Arm: Pain Intensity: 7 Transfer of Care Handoff Completed per policy Notes Mental Status: alert / awake / arousable Patient Amnestic to Procedure: Yes Nausea / Vomiting: adequately controlled Pain: adequately controlled Airway Patency, RR, SpO2: stable & adequate BP & HR: stable & adequate Hydration State: stable & adequate Anesthetic Complications: no major complications apparent
--- NOTE | 2022-03-17 11:08 | Hospitalist Progress Note ---
Date of Service March 17, 2022 Assessment & Plan (1) Cellulitis of hand, right: (2) Cat bite: Plan 46 year old female who presented to the ED with worsening right hand cellulitis after cat bite on , worsening despite OP Augmentin x3 doses. 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 CT hand 03/15- Right hand and wrist subcutaneous edema, greater dorsally. This suggests cellulitis. No rim-enhancing fluid collection to suggest abscess. No soft tissue gas. No evidence for acute osteomyelitis by CT. MRI 03/16- 1. No acute bony abnormality is identified. 2. Significant soft tissue edema is present in the right hand, greatest dorsa lly. The appearance is typical for cellulitis. 3. There is no organized fluid collection to indicate abscess. 4. There is evidence of tenosynovitis of the extensor tendons. 03/16- Wound clx showing GNB 03/17- Ortho procedure and OR culture 1. Right thumb irrigation and debridement, septic flexor tenosynovitis. 2. Right thumb arthrotomy and drainage, septic metacarpophalangeal joint. 3. Right thumb extensor tenosynovectomy. Cat bite right thumb (03/14) with right hand cellulitis and abscess with tenosynovitis - Received OP augmentin for 3 doses but her cellulitis was rapidly progressing so came to the ED 03/15 and was started on Unasyn - Didn't meet SIRS or sepsis critieria on admission. No fever, mild leucocytosis resolved. Well looking - CT and MRI reviewed as above - Started on unasyn on admission but had worsening symptoms with fever 03/16 and added Vancomycin per ID recommendation but had allergic reaction and was switched to datpomycin - Continue empiric dapto/unasyn pending OR clx. - S/p right thumb irrigation and debridement with right thumb extensor tenosynovectomy per ortho 03/17 - Follow wound clx and OR clx- D/C dapto if no MRSA identified. - Ortho following, ID eval pending - The cat is uptodate with vaccination and she is uptodate with her tetanus shot 03/14. Anxiety- on paxil. xanax prn Hypoxia post procedure- CXR reviewed. Continue nebs, mucinex, flutter valve. Monitor. Wean down oxygen as tolerated. DVT ppx- sc lovenox Dispo- Continue empiric IV antibiotics- follow clx results for further antibiotic management Admission and Anticipated Discharge Date Admission Date: March 15, 2022 Subjective She had right hand I and D today and was seen afterwards. [place] short of breath and inability to cough out phlegm. No fever, chills, N/V. Physical Exam Physical Exam: General: Sitting comfortably in bed, not in distress, on NC 2 L Chest: Decreased breath sounds bilaterally due to poor effort but otherwise clear CVS: Regular rate and rhythm, normal heart sounds, no murmur Abdomen: Soft, non tender, not distended, normal bowel sounds Neuro: Awake, alert, oriented, conversing well, non focal Extremities: Right hand covered with dressing Results & Data Results & Data ([facility]) Vital Signs (Past 12 Hours) Vital Signs Temp Pulse Pulse Resp BP Pulse Ox O2 Del Method 03/17/22 10:48 36.7 C 83 14 136/73 96 Nasal Cannula 03/17/22 10:20 37.0 C 82 16 109/73 94 Nasal Cannula 03/17/22 10:24 9 L 88 H Nasal Cannula 03/17/22 09:50 36.8 C 73 18 112/76 94 Nasal Cannula 03/17/22 09:34 36.8 C 03/17/22 09:25 70 16 107/60 98 Nasal Cannula 03/17/22 09:15 76 16 119/73 97 Oxymask 03/17/22 09:05 79 18 111/73 97 Oxymask 03/17/22 08:58 36.5 C 87 18 140/69 96 Oxymask 03/17/22 07:09 36.9 C 75 16 102/69 96 Room Air O2 Flow Rate 03/17/22 10:48 2 03/17/22 10:20 2 03/17/22 10:24 5 03/17/22 09:50 5 03/17/22 09:34 03/17/22 09:25 2 03/17/22 09:15 5 03/17/22 09:05 5 03/17/22 08:58 5 03/17/22 07:09 Medications Administered Current Inpatient Medications Acetaminophen (Acetaminophen 325 Mg Tab) 650 mg PO Q4H PRN PRN Reason: Pain or Fever Stop: 04/15/22 00:54 Last Admin: 03/16/22 15:43 Dose: 650 mg Albuterol (Albuterol 0.083% Nebu Soln 3 Ml Vial) 2.5 mg NEB Q4R PRN; Protocol PRN Reason: sob Stop: 04/16/22 10:05 Last Admin: 03/17/22 10:20 Dose: 2.5 mg Alprazolam (Alprazolam 0.25 Mg Tablet) 0.25 mg PO TID PRN PRN Reason: Anxiety Stop: 04/15/22 00:54 Bisacodyl (Bisacodyl 10 Mg Supp) 10 mg SC DAILY PRN PRN Reason: Constipation Stop: 04/16/22 09:48 Docusate Sodium (Docusate Sodium 100 Mg Cap) 100 mg PO BID YAYA Stop: 04/16/22 09:48 Enoxaparin Sodium (Enoxaparin Inj 40 Mg/0.4 Ml Syr) 40 mg SQ QAM YAYA Stop: 04/15/22 08:59 Last Admin: 03/16/22 08:29 Dose: Not Given Guaifenesin (Guaifenesin 600 Mg Tabcr) 600 mg PO Q12 YAYA Stop: 04/16/22 11:04 Hydromorphone HCl (Hydromorphone Inj 0.5 Mg/0.5 Ml Syr) 0.5 mg IV Q6H PRN PRN Reason: sev pain not controlled w oxy Stop: 03/30/22 13:28 Last Admin: 03/17/22 10:34 Dose: 0.5 mg Promethazine HCl 12.5 mg/ (Sodium Chloride) 50.5 mls @ 202 mls/hr IV Q6H PRN PRN Reason: Nausea And Vomiting Stop: 04/14/22 22:25 Ampicillin Sodium/Sulbactam Sodium 3,000 mg/ Sodium Chloride 108 mls @ 200 mls/hr IV Q6H [facility]; Protocol Stop: 03/23/22 03:59 Last Infusion: 03/17/22 05:53 Dose: Infused Daptomycin 300 mg/ Syringe 6 mls @ 3 mls/min IV Q24H YAYA; Protocol Stop: 03/24/22 07:59 Last Admin: 03/17/22 10:10 Dose: 3 mls/min Ketorolac Tromethamine (Ketorolac 30 Mg/Ml Vial) 30 mg IV Q6 PRN PRN Reason: Pain Stop: 03/21/22 14:34 Magnesium Hydroxide (Magnesium Hydroxide Susp 30 Ml Udc) 30 ml PO Q6H PRN PRN Reason: Constipation Stop: 04/16/22 09:48 Multivitamins (Multivitamin Tab) 1 tab PO QAM YAYA Stop: 04/16/22 09:48 Naloxone HCl (Naloxone Hcl 0.4 Mg/1 Ml Vial/Carp) 0.1 mg IV Q5M PRN PRN Reason: Oversedation/Resp Depression Stop: 04/16/22 09:48 Ondansetron HCl (Ondansetron Inj 2 Mg/Ml 2 Ml Vial) 4 mg IV Q6H PRN PRN Reason: Nausea And Vomiting Stop: 04/16/22 09:48 Oxycodone HCl (Oxycodone Hcl Ir 5 Mg Tab (Immediate Release)) 5 - 10 mg PO Q4 PRN PRN Reason: mod-sev pain Stop: 03/30/22 13:23 Last Admin: 03/16/22 15:35 Dose: 10 mg Paroxetine HCl (Paroxetine Hcl 20 Mg Tab) 40 mg PO DAILY YAYA Stop: 04/15/22 08:59 Last Admin: 03/16/22 08:28 Dose: 40 mg Sennosides (Senna 8.6 Mg Tab) 17.2 mg PO HS [facility] Stop: 04/16/22 20:59
[2022-03-17 11:28] LABS: Hematocrit (blood only) 41.1 % (34.1-44.9); Hemoglobin 13.8 g/dl (12.0-16.0); Mean Corpuscular Hemoglobin 30.9 pg (25.0-34.0); Mean Corpuscular Hgb Conc 33.6 g/dL (32.0-36.0); Mean Corpuscular Volume 92.2 fL (80.0-100.0); Mean Platelet Volume 10.5 fL (9.4-12.3); Platelet Count 199 K/uL (130-400); RDW Coefficient of Variation 12.4 % (11.5-14.5); RDW Standard Deviation 41.8 fL (36.4-46.3); Red Blood Count 4.46 M/uL (3.93-5.22); White Blood Count 11.77 K/ul (4.8-10.8)
[2022-03-17] MEDS: MULTIVITAMIN TAB PO SCH (11:33)
[2022-03-17] MEDS: DOCUSATE SODIUM 100 MG CAP PO SCH ×2 (11:33→20:01)
[2022-03-17] MEDS: PARoxetine HCL 20 MG TAB PO SCH (11:34)
[2022-03-17 11:54] LABS: BUN Creatinine Ratio 16.9 (10-20); Calcium 8.1 mg/dl (8.5-10.1); Creatinine Clr Calc Pharmacy 111.4 ml/min; Est GFR (African American) 117.6 ml/min; Est GFR (Non-African American) 101.4 ml/min; Potassium 3.8 mmol/L (3.5-5.1)
[2022-03-17] MEDS: guaiFENesin 600 MG TABCR PO SCH ×2 (14:04→20:00)
[2022-03-17] MEDS: SENNA 8.6 MG TAB PO SCH (20:00)
[2022-03-18] MEDS: AMPICILLIN/SULBACTAM SOD 3,000 MG in 0.9 % SODIUM CHLORIDE 100 ML IV SCH ×4 (05:04→22:56)
[2022-03-18 07:35] LABS: Hematocrit (blood only) 37.8 % (34.1-44.9); Hemoglobin 13.1 g/dl (12.0-16.0); Mean Corpuscular Hemoglobin 31.2 pg (25.0-34.0); Mean Corpuscular Hgb Conc 34.7 g/dL (32.0-36.0); Mean Platelet Volume 10.6 fL (9.4-12.3); Platelet Count 209 K/uL (130-400); RDW Standard Deviation 39.6 fL (36.4-46.3); White Blood Count 10.78 K/ul (4.8-10.8)
--- NOTE | 2022-03-18 07:40 | Orthopedic Progress Note ---
Date of Service March 18, 2022 Assessment & Plan (1) Flexor tenosynovitis of thumb: Plan: Postop day #1 1. Right thumb irrigation and debridement, septic flexor tenosynovitis. 2. Right thumb arthrotomy and drainage, septic metacarpophalangeal joint. 3. Right thumb extensor tenosynovectomy. -Patient is improved postoperatively. Dressing change today. Continue with daily dressing changes. Antibiotics as per medicine. OR cultures are pending however preop cultures with Pasteurella multocida. Patient is stable for discharge from orthopedic standpoint today versus tomorrow if appropriate antibiotic choice can be made. Patient can follow-up with Dr. Kim at [facility] 10 to 14 days postoperatively. They can call [phone] for an appointment. Admission and Anticipated Discharge Date Admission Date: March 15, 2022 Subjective Postop day #1 right thumb I&D. Patient is doing well this morning. Her pain is much improved. No other complaints. Denies chest pain, shortness of breath, dizziness, nausea/vomiting, fever/chills. Review of Systems 2 Review of Systems: All systems reviewed & are unremarkable except as noted in HPI & below Physical Exam Physical Exam: Right thumb: Dressing is clean, dry, intact. Dressing removed. Her incisions are clean, dry, intact. Packing present and no other puncture wounds which was removed. Minimal drainage. Fingers are mobile. Distally neurovascular status and sensation intact. Edema in hand and thumb has improved. Mild swelling continues in the thumb. Erythema improving. Constitutional: WD/WN, vitals as above Results & Data ([facility]) Vital Signs (Past 12 Hours) Vital Signs Temp Pulse Resp BP Pulse Ox O2 Del Method 03/18/22 03:23 36.7 C 70 107/67 92 Room Air 03/17/22 23:15 36.8 C 78 16 110/67 92 Room Air Laboratory Results Lab Results 03/15/22 03/15/22 03/15/22 Range/Units 21:25 21:25 21:30 WBC 11.93 H (4.8-10.8) K/ul RBC 4.32 (3.93-5.22) M/uL Hgb 13.4 (12.0-16.0) g/dl Hct 39.5 (34.1-44.9) % MCV 91.4 (80.0-100.0) fL MCH 31.0 (25.0-34.0) pg MCHC 33.9 (32.0-36.0) g/dL RDW Std Deviation 41.0 (36.4-46.3) fL RDW Coeff of Le 12.1 (11.5-14.5) % Plt Count 203 (130-400) K/uL MPV 10.6 (9.4-12.3) fL Immature Gran % (Auto) 0.4 % Neut % (Auto) 79.6 % Lymph % (Auto) 13.2 % [place] % (Auto) 5.1 % Eos % (Auto) 1.3 % Baso % (Auto) 0.4 % Neut # (Auto) 9.49 H (1.4-6.5) K/uL Lymph # (Auto) 1.57 (1.2-3.4) K/uL [place] # (Auto) 0.61 (0.24-0.82) K/uL Eos # (Auto) 0.16 (0-0.50) K/uL Baso # (Auto) 0.05 (0-0.2) K/uL Immature Gran # (Auto) 0.05 H (0.00-0.02) K/uL Sodium 135 L (136-145) mmol/L Potassium 3.6 (3.5-5.1) mmol/L Chloride 103 (98-107) mmol/L Carbon Dioxide 25 (21-32) mmol/L Anion Gap 7 (3-11) BUN 15 (6-23) mg/dl Creatinine 0.77 (0.6-1.2) mg/dl Est Cr Clr Drug Dosing 103.7 ml/min Est GFR ( Amer) 106.6 ml/min Est GFR (Non-Af Amer) 91.9 ml/min BUN/Creatinine Ratio 19.5 (10-20) Glucose 112 H (70-99(Fasting)) mg/dl Estimat Average Glucose mg/dl Hemoglobin A1c (4.5-5.6) % Calcium 8.3 L (8.5-10.1) mg/dl Total Bilirubin 0.6 (0.2-1.0) mg/dl AST 15 (13-39) U/L ALT 21 (7-52) U/L Alkaline Phosphatase 83 (34-104) U/L Total Protein 6.4 (6.0-8.3) gm/dl Albumin 4.0 (3.4-5.0) gm/dl Globulin 2.4 L (2.5-4.0) gm/dl Albumin/Globulin Ratio 1.7 (0.9-2) SARS-CoV-2, RNA, NAAT NEGATIVE (NEGATIVE) 03/15/22 03/16/22 03/16/22 Range/Units 21:40 06:37 06:37 WBC 9.57 (4.8-10.8) K/ul RBC 4.17 (3.93-5.22) M/uL Hgb 12.9 (12.0-16.0) g/dl Hct 38.2 (34.1-44.9) % MCV 91.6 (80.0-100.0) fL MCH 30.9 (25.0-34.0) pg MCHC 33.8 (32.0-36.0) g/dL RDW Std Deviation 41.3 (36.4-46.3) fL RDW Coeff of Le 12.4 (11.5-14.5) % Plt Count 169 (130-400) K/uL MPV 10.7 (9.4-12.3) fL Immature Gran % (Auto) 0.3 % Neut % (Auto) 77.8 % Lymph % (Auto) 13.6 % [place] % (Auto) 6.3 % Eos % (Auto) 1.6 % Baso % (Auto) 0.4 % Neut # (Auto) 7.45 H (1.4-6.5) K/uL Lymph # (Auto) 1.30 (1.2-3.4) K/uL [place] # (Auto) 0.60 (0.24-0.82) K/uL Eos # (Auto) 0.15 (0-0.50) K/uL Baso # (Auto) 0.04 (0-0.2) K/uL Immature Gran # (Auto) 0.03 H (0.00-0.02) K/uL Sodium 139 (136-145) mmol/L Potassium 4.1 (3.5-5.1) mmol/L Chloride 109 H (98-107) mmol/L Carbon Dioxide 23 (21-32) mmol/L Anion Gap 7 (3-11) BUN 12 (6-23) mg/dl Creatinine 0.63 (0.6-1.2) mg/dl Est Cr Clr Drug Dosing 125.6 ml/min Est GFR ( Amer) 123.8 ml/min Est GFR (Non-Af Amer) 106.8 ml/min BUN/Creatinine Ratio 19.0 (10-20) Glucose 123 H (70-99(Fasting)) mg/dl Estimat Average Glucose 111 mg/dl Hemoglobin A1c 5.5 (4.5-5.6) % Calcium 8.1 L (8.5-10.1) mg/dl Total Bilirubin (0.2-1.0) mg/dl AST (13-39) U/L ALT (7-52) U/L Alkaline Phosphatase (34-104) U/L Total Protein (6.0-8.3) gm/dl Albumin (3.4-5.0) gm/dl Globulin (2.5-4.0) gm/dl Albumin/Globulin Ratio (0.9-2) SARS-CoV-2, RNA, NAAT (NEGATIVE) 03/17/22 03/17/22 03/18/22 Range/Units 10:50 10:50 07:13 WBC 11.77 H 10.78 (4.8-10.8) K/ul RBC 4.46 4.20 (3.93-5.22) M/uL Hgb 13.8 13.1 (12.0-16.0) g/dl Hct 41.1 37.8 (34.1-44.9) % MCV 92.2 90.0 (80.0-100.0) fL MCH 30.9 31.2 (25.0-34.0) pg MCHC 33.6 34.7 (32.0-36.0) g/dL RDW Std Deviation 41.8 39.6 (36.4-46.3) fL RDW Coeff of Le 12.4 12.0 (11.5-14.5) % Plt Count 199 209 (130-400) K/uL MPV 10.5 10.6 (9.4-12.3) fL Immature Gran % (Auto) % Neut % (Auto) % Lymph % (Auto) % [place] % (Auto) % Eos % (Auto) % Baso % (Auto) % Neut # (Auto) (1.4-6.5) K/uL Lymph # (Auto) (1.2-3.4) K/uL [place] # (Auto) (0.24-0.82) K/uL Eos # (Auto) (0-0.50) K/uL Baso # (Auto) (0-0.2) K/uL Immature Gran # (Auto) (0.00-0.02) K/uL Sodium 136 (136-145) mmol/L Potassium 3.8 (3.5-5.1) mmol/L Chloride 104 (98-107) mmol/L Carbon Dioxide 25 (21-32) mmol/L Anion Gap 7 (3-11) BUN 12 (6-23) mg/dl Creatinine 0.71 (0.6-1.2) mg/dl Est Cr Clr Drug Dosing 111.4 ml/min Est GFR ( Amer) 117.6 ml/min Est GFR (Non-Af Amer) 101.4 ml/min BUN/Creatinine Ratio 16.9 (10-20) Glucose 117 H (70-99(Fasting)) mg/dl Estimat Average Glucose mg/dl Hemoglobin A1c (4.5-5.6) % Calcium 8.1 L (8.5-10.1) mg/dl Total Bilirubin (0.2-1.0) mg/dl AST (13-39) U/L ALT (7-52) U/L Alkaline Phosphatase (34-104) U/L Total Protein (6.0-8.3) gm/dl Albumin (3.4-5.0) gm/dl Globulin (2.5-4.0) gm/dl Albumin/Globulin Ratio (0.9-2) SARS-CoV-2, RNA, NAAT (NEGATIVE)
[2022-03-18] MEDS: ACETAMINOPHEN 325 MG TAB PO PRN ×2 (08:03→17:53)
[2022-03-18] MEDS: DAPTOmycin 300 MG in SYRINGE 0 ML IV SCH (08:05)
[2022-03-18] MEDS: guaiFENesin 600 MG TABCR PO SCH ×2 (08:14→20:32)
[2022-03-18] MEDS: MULTIVITAMIN TAB PO SCH (08:14)
[2022-03-18] MEDS: DOCUSATE SODIUM 100 MG CAP PO SCH ×2 (08:14→20:32)
[2022-03-18] MEDS: PARoxetine HCL 20 MG TAB PO SCH (08:15)
[2022-03-18 08:22] LABS: BUN Creatinine Ratio 25.7 (10-20); Calcium 8.3 mg/dl (8.5-10.1); Creatinine Clr Calc Pharmacy 106.9 ml/min; Est GFR (African American) 111.8 ml/min; Est GFR (Non-African American) 96.5 ml/min; Potassium 3.8 mmol/L (3.5-5.1)
--- NOTE | 2022-03-18 11:38 | Hospitalist Progress Note ---
Date of Service March 18, 2022 Assessment & Plan (1) Cellulitis of hand, right: (2) Cat bite: Plan 46 year old female who presented to the ED with worsening right hand cellulitis after cat bite on , worsening despite OP Augmentin x3 doses. 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 CT hand 03/15- Right hand and wrist subcutaneous edema, greater dorsally. This suggests cellulitis. No rim-enhancing fluid collection to suggest abscess. No soft tissue gas. No evidence for acute osteomyelitis by CT. MRI 03/16- 1. No acute bony abnormality is identified. 2. Significant soft tissue edema is present in the right hand, greatest dorsa lly. The appearance is typical for cellulitis. 3. There is no organized fluid collection to indicate abscess. 4. There is evidence of tenosynovitis of the extensor tendons. 03/16- Wound clx showing GNB 03/17- Ortho procedure and OR culture 1. Right thumb irrigation and debridement, septic flexor tenosynovitis. 2. Right thumb arthrotomy and drainage, septic metacarpophalangeal joint. 3. Right thumb extensor tenosynovectomy. Cat bite right thumb (03/14) with right hand cellulitis and abscess with tenosynovitis - Received OP augmentin for 3 doses but her cellulitis was rapidly progressing so came to the ED 03/15 and was started on Unasyn - Didn't meet SIRS or sepsis critieria on admission. No fever, mild leucocytosis resolved. Well looking - CT and MRI reviewed as above - Wound clx 03/16 showing pasteurella, OR clx 03/17 pending - S/p right thumb irrigation and debridement with right thumb extensor tenosynovectomy per ortho 03/17 - S/p Unasyn/dapto-> dc dapto and continue unasyn only pending OR clx results - Seen by ortho- continue daily dressing changes, OP f/u in 10-14 days - The cat is uptodate with vaccination and she is uptodate with her tetanus shot 03/14. Anxiety- on paxil. xanax prn Hypoxia post procedure- resolved. DVT ppx- sc lovenox Dispo- Continue iv unasyn, follow OR clx results. Anticipate can be discharged tomorrow. Admission and Anticipated Discharge Date Admission Date: March 15, 2022 Subjective Feels much better after the surgery. Pain and swelling significantly improved. No more fever. Hypoxia and dyspnea resolved. No other issues. Physical Exam Physical Exam: General: Sitting comfortably in bed, not in distress, on NC Chest: Normal breath sounds bilaterally CVS: Regular rate and rhythm, normal heart sounds, no murmur Abdomen: Soft, non tender, not distended, normal bowel sounds Neuro: Awake, alert, oriented, conversing well, non focal Extremities: Right hand covered with dressing Results & Data Results & Data ([facility]) Vital Signs (Past 12 Hours) Vital Signs Temp Pulse Resp BP Pulse Ox O2 Del Method 03/18/22 07:21 36.8 C 75 14 114/74 93 Room Air 03/18/22 03:23 36.7 C 70 107/67 92 Room Air Laboratory Results Short CBC 03/18/22 Range/Units 07:13 WBC 10.78 (4.8-10.8) K/ul Hgb 13.1 (12.0-16.0) g/dl Hct 37.8 (34.1-44.9) % Plt Count 209 (130-400) K/uL BMP 03/17/22 03/18/22 10:50 07:13 Sodium 136 139 Potassium 3.8 3.8 Chloride 104 106 Carbon Dioxide 25 28 BUN 12 19 Creatinine 0.71 0.74 Glucose 117 H 120 H Calcium 8.1 L 8.3 L Medications Administered Current Inpatient Medications Acetaminophen (Acetaminophen 325 Mg Tab) 650 mg PO Q4H PRN PRN Reason: mild pain or fever Stop: 04/15/22 00:54 Last Admin: 03/18/22 08:03 Dose: 650 mg Albuterol (Albuterol 0.083% Nebu Soln 3 Ml Vial) 2.5 mg NEB Q4R PRN; Protocol PRN Reason: sob Stop: 04/16/22 10:05 Last Admin: 03/17/22 10:20 Dose: 2.5 mg Alprazolam (Alprazolam 0.25 Mg Tablet) 0.25 mg PO TID PRN PRN Reason: Anxiety Stop: 04/15/22 00:54 Bisacodyl (Bisacodyl 10 Mg Supp) 10 mg AK DAILY PRN PRN Reason: Constipation Stop: 04/16/22 09:48 Docusate Sodium (Docusate Sodium 100 Mg Cap) 100 mg PO BID [facility] Stop: 04/16/22 09:48 Last Admin: 03/18/22 08:14 Dose: 100 mg Enoxaparin Sodium (Enoxaparin Inj 40 Mg/0.4 Ml Syr) 40 mg SQ QAM [facility] Stop: 04/15/22 08:59 Last Admin: 03/16/22 08:29 Dose: Not Given Guaifenesin (Guaifenesin 600 Mg Tabcr) 600 mg PO Q12 [facility] Stop: 04/16/22 11:04 Last Admin: 03/18/22 08:14 Dose: 600 mg Hydromorphone HCl (Hydromorphone Inj 0.5 Mg/0.5 Ml Syr) 0.5 mg IV Q6H PRN PRN Reason: sev pain not controlled w oxy Stop: 03/30/22 13:28 Last Admin: 03/17/22 10:34 Dose: 0.5 mg Promethazine HCl 12.5 mg/ (Sodium Chloride) 50.5 mls @ 202 mls/hr IV Q6H PRN PRN Reason: Nausea And Vomiting Stop: 04/14/22 22:25 Ampicillin Sodium/Sulbactam Sodium 3,000 mg/ Sodium Chloride 108 mls @ 200 mls/hr IV Q6H [facility]; Protocol Stop: 03/23/22 03:59 Last Infusion: 03/18/22 05:44 Dose: Infused Ketorolac Tromethamine (Ketorolac 30 Mg/Ml Vial) 30 mg IV Q6 PRN PRN Reason: Pain Stop: 03/21/22 14:34 Magnesium Hydroxide (Magnesium Hydroxide Susp 30 Ml Udc) 30 ml PO Q6H PRN PRN Reason: Constipation Stop: 04/16/22 09:48 Multivitamins (Multivitamin Tab) 1 tab PO QAM [facility] Stop: 04/16/22 09:48 Last Admin: 03/18/22 08:14 Dose: 1 tab Naloxone HCl (Naloxone Hcl 0.4 Mg/1 Ml Vial/Carp) 0.1 mg IV Q5M PRN PRN Reason: Oversedation/Resp Depression Stop: 04/16/22 09:48 Ondansetron HCl (Ondansetron Inj 2 Mg/Ml 2 Ml Vial) 4 mg IV Q6H PRN PRN Reason: Nausea And Vomiting Stop: 04/16/22 09:48 Oxycodone HCl (Oxycodone Hcl Ir 5 Mg Tab (Immediate Release)) 5 - 10 mg PO Q4 PRN PRN Reason: mod-sev pain Stop: 03/30/22 13:23 Last Admin: 03/16/22 15:35 Dose: 10 mg Paroxetine HCl (Paroxetine Hcl 20 Mg Tab) 40 mg PO DAILY YAYA Stop: 04/15/22 08:59 Last Admin: 03/18/22 08:15 Dose: 40 mg Sennosides (Senna 8.6 Mg Tab) 17.2 mg PO HS YAYA Stop: 04/16/22 20:59 Last Admin: 03/17/22 20:00 Dose: 17.2 mg
[2022-03-18] MEDS: SENNA 8.6 MG TAB PO SCH (21:32)
[2022-03-19] MEDS: AMPICILLIN/SULBACTAM SOD 3,000 MG in 0.9 % SODIUM CHLORIDE 100 ML IV SCH ×2 (05:11→10:08)
[2022-03-19] MEDS: PARoxetine HCL 20 MG TAB PO SCH (09:05)
[2022-03-19] MEDS: MULTIVITAMIN TAB PO SCH (09:05)
[2022-03-19] MEDS: DOCUSATE SODIUM 100 MG CAP PO SCH (09:05)
[2022-03-19] MEDS: guaiFENesin 600 MG TABCR PO SCH (09:05)
--- NOTE | 2022-03-19 17:39 | Discharge Summary ---
Date of Service March 19, 2022 Admission HPI Per Admitting Provider Patient is 46 y/o F with PMH anxiety, depression presented to ER with c/o cat bite to right hand yesterday. Reports bite to right thumb. 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 Saw PCP yesterday, was started on Augmentin. Took 3 doses however has had increased erythema to right thumb and hand. Tactile fever, didn't take her temperature. Took ibuprofen with some relief. Tetanus shot yesterday at PCP's office. Denies diaphoresis, N/V/D/C, JIMÉNEZ, dizziness, syncope, vision changes, neck pain, CP, SOB, orthopnea, palpitations, cough, sore throat, choking, otalgia, rhinorrhea, abdominal pain, paresthesias, weakness, extremity weakness, extremity edema, other rashes, urinary symptoms. Admission Exam Per Admitting Provider Patient is 46 y/o F with PMH anxiety, depression presented to ER with c/o cat bite to right hand yesterday. Reports bite to right thumb. 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 Saw PCP yesterday, was started on Augmentin. Took 3 doses however has had increased erythema to right thumb and hand. Tactile fever, didn't take her temperature. Took ibuprofen with some rel ief. Tetanus shot yesterday at PCP's office. Denies diaphoresis, N/V/D/C, JIMÉNEZ, dizziness, syncope, vision changes, neck pain, CP, SOB, orthopnea, palpitations, cough, sore throat, choking, otalgia, rhinorrhea, abdominal pain, paresthesias, weakness, extremity weakness, extremity edema, other rashes, urinary symptoms. Principal Diagnosis 1) Cat bite right thumb (03/14) with right hand cellulitis and abscess with tenosynovitis 2) Cat bite Discharge Exam General: Sitting comfortably in bed, not in distress, on NC Chest: Normal breath sounds bilaterally CVS: Regular rate and rhythm, normal heart sounds, no murmur Abdomen: Soft, non tender, not distended, normal bowel sounds Neuro: Awake, alert, oriented, conversing well, non focal Extremities: Right hand covered with dressing Discharge Data Allergies Allergy/AdvReac Type Severity Reaction Status Date / Time vancomycin Allergy Mild Verified 08/27/22 20:08 Consultations 03/15/22 21:23 ED Decision to Admit Stat 03/16/22 13:47 Consult Infectious Diseases Routine Consult Orthopedic Surgery Stat Procedures Performed Operation Date: 03/17/22 07:30 Actual Procedures p Incision and Drainage Right Thumb(Right) - Inder Kim MD Ordered Studies 03/15/22 22:22 CT hand RT w con Urgent 03/16/22 14:00 MRI Hand [MR hand RT wo/w con] Urgent Hospital Course (1) Cellulitis of hand, right: (2) Cat bite: Plan Patient is a 46-year-old female with presented to the ED with worsening right hand cellulitis after a cat bite. Patient was on Augmentin as outpatient but the wound continued to progress which prompted her to come to the ED. MRI was performed which did not show any acute bony abnormality; significant soft tissue edema typical for cellulitis. Patient underwent irrigation and debridement by Ortho on 03/17. Wound culture was positive for Pasteurella. Patient was given Unasyn during the admission. On discharge, patient was given prescription for doxycycline for 10 days. Instruction for daily wound care was given with dressing supplies. She was instructed to follow-up with PCP within 1 week and with orthopedics in 10 to 14 days. Total Time Total Time Spent Total Time Spent (In Minutes): 35 Total Time Includes: Examination of the Patient, Discharge Planning, Medication Reconciliation, Communication With Other Providers and Other Discharge Plan Discharge Items Patient Disposition: Home - Self-Care Reason For Visit: R HAND CELLULITIS, FAILED OUTPX Discharge Diagnosis: (1) Cellulitis of hand, right (2) Cat bite Activity: Resume your previous activity Activity Comment: Avoid exertion on your right hand. Non-emergency contact: Primary Care Provider Call non-emergency contact if: you have any medication questions, your symptoms worsen, your temperature is above 101, your wound has increased redness, your wound has increased drainage and your wound pain has increased Follow-up/Referrals: Inder Kim MD [Physician] - 04/01/22 12:50 pm Samm Costa MD [Primary Care Provider] - (Date & Time 03/27/2022 2:00 PM Provider Samm Costa III, MD Department [facility] ) Diet: Regular Addtl Attending Provider Instructions: Please follow up with your PCP within a week. Please take Doxycycline 100mg twice daily for next 10 days. Addtl Lead Clinical Research Coordinator Provider Instructions: ACTIVITY RECOMMENDATIONS: * Avoid lifting anything heavier than a medium water glass until your first post operative visit. SPECIAL CARE INSTRUCTIONS: * Daily dressing changes. . * Some drainage onto the dressing may occur. This is normal. * If the bandage feels excessively tight, you may loosen the elastic bandage. Then call the physician's office for further instructions. * If possible, keep your hand elevated above the level of your heart for the first 2 post operative days. You may use a sling if necessary. * You should move your fingers regularly (50-100 motions per hour) unless otherwise instructed. SPECIAL PRECAUTIONS: * If you notice increased drainage, fever over 101 degrees F. or severe, unremitting pain, call your physician/office at . * You may have been prescribed pain medication. If you experience nausea and/or skin rash, discontinue this medication and contact our office for an alternative medication. FOLLOW UP VISIT: If appointment is not already scheduled: Please call [facility] to make a follow-up appointment with Dr Kim and with [facility] Physical Therapist when you get home. . Please follow up with your PCP within a week. Please take Doxycycline 100mg twice daily for next 10 days. Pending Studies at Discharge: No Stand-Alone Forms: [facility], Sm[facility] Cessation Medications and DC Order Prescriptions: New doxycycline hyclate 100 mg tablet 100 mg PO BID 10 Days Qty: 20 0RF Continued alprazolam 0.25 mg tablet 0.25 mg PO TID PRN (Reason: Anxiety) paroxetine HCl 40 mg tablet 40 mg PO DAILY Discontinued amoxicillin-pot clavulanate 875-125 mg tablet 1 tab PO BID Rx Instructions: Started 03/14/22, 10 day course Discharge Orders: Discharge Order (Routine); Ordered 03/19/22 Ordered By: Boom Hilario Admission Data Admit Date/Time: 03/15/22 22:23 Attending Provider: Boom Hilario Admit Provider: Saravanan Alatorre Primary Care Provider: Samm Costa Other Providers: Saravanan Alatorre ; Inder Kim ; Peter Dos Santos ; Deann Shannon ; Franco Shin I. ; Charlie Duenas II ; Jacki Higginbotham ; Fernando Rm ; Heladio Oglesby Other Interventions: Discharge Summary Assessment (RN) Last Done: 03/19/22 11:15
== END 2022-03-19 13:15 | disposition home or self-care (01) | DRG 506 ==
LOC: ED 20:37 → SUATTDRO 22:23 → 3W 22:23

== ENCOUNTER 2024-10-08 16:53 | Observation (INO) ==
[2024-10-08] MEDS: SODIUM CHLORIDE 0.9% 1,000 ML IV ONE (17:42)
--- NOTE | 2024-10-08 17:50 | XRay Report ---
Chest radiograph, one view History: Sepsis Comparison: 03/17/2022 Findings: Single AP view of the chest performed. No focal consolidation or pleural effusion. No pneumothorax. Right chest wall port with catheter tip at the mid SVC. The cardiomediastinal silhouette is within normal limits. Normal pulmonary vascularity. No evidence for lymphadenopathy. No visualized bony or soft tissue abnormality. Impression: Normal chest radiograph Electronically signed by Inder Tao 10-08-2024 5:50 PM
[2024-10-08 17:53] LABS: Base Excess VBG 1.7 mEq/L; HCO3 VBG 27 mmol/L; Oxygen Saturation VBG 67.4 %; PCO2 VBG 42 mmHg (38-50); PO2 VBG 39 mmHg; pH VBG 7.41 (7.36-7.41)
[2024-10-08 18:15] LABS: Alanine Aminotransferase 17 U/L (7-52); Albumin Level 3.6 gm/dl (3.4-5.0); Alkaline Phosphatase 84 U/L (34-104); Anion Gap 4 (3-11); Aspartate Aminotransferase 10 U/L (13-39); BUN Creatinine Ratio 19.4 (10-20); Bilirubin Direct 0.1 mg/dl (0-0.2); Bilirubin,Total 0.6 mg/dl (0.2-1.0); Blood Urea Nitrogen 12 mg/dl (6-23); Calcium 7.5 mg/dl (8.6-10.3); Carbon Dioxide 28 mmol/L (21-32); Chloride 102 mmol/L (98-107); Creatinine Clr Calc Pharmacy 128.4 ml/min; Glucose 166 mg/dl (70-99(Fasting)); Magnesium 1.6 mg/dl (1.7-2.4); Potassium 3.5 mmol/L (3.5-5.1); Sodium 134 mmol/L (136-145); Total Protein 5.7 gm/dl (6.0-8.3)
[2024-10-08 18:22] LABS: Troponin I High Sensitivity < 2.3 pg/ml (0-14)
[2024-10-08 18:30] LABS: INR 1.1 (0.9-1.1); Partial Thromboplastin Ratio 1.2; Partial Thromboplastin Time 33 Seconds (21-31); Prothrombin Time 12.1 Seconds (9.0-12.0)
[2024-10-08 18:41] LABS: Hematocrit (blood only) 23.8 % (37.0-47.0); Hemoglobin 8.5 g/dl (12.0-16.0); Mean Corpuscular Hemoglobin 33.7 pg (25.0-34.0); Mean Corpuscular Hgb Conc 35.7 g/dL (32.0-36.0); Mean Corpuscular Volume 94.4 fL (80.0-100.0); Platelet Count 39 K/uL (130-400); RDW Coefficient of Variation 13.2 % (11.5-14.5); Red Blood Count 2.52 M/uL (4.20-5.40)
[2024-10-08 18:42] LABS: Adenovirus PCR Not Detected (NotDetected); Bordetella parapertussis PCR Not Detected (NotDetected); Bordetella pertussis PCR Not Detected (NotDetected); Chlamydia pneumoniae PCR Not Detected (NotDetected); Coronavirus 229E PCR Not Detected (NotDetected); Coronavirus CoV-2 (COVID19)PCR Not Detected (NotDetected); Coronavirus HKU1 PCR Not Detected (NotDetected); Coronavirus NL63 PCR Not Detected (NotDetected); Coronavirus OC43PCR Not Detected (NotDetected); Human Metapneumovirus PCR Not Detected (NotDetected); Influenza A PCR Not Detected (NotDetected); Influenza B PCR Not Detected (NotDetected); Mycoplasma pneumoniae PCR Not Detected (NotDetected); Parainfluenza Virus 1 PCR Not Detected (NotDetected); Parainfluenza Virus 2 PCR Not Detected (NotDetected); Parainfluenza Virus 3 PCR Not Detected (NotDetected); Parainfluenza Virus 4 PCR Not Detected (NotDetected); Respiratory Syncytial VirusPCR Not Detected (NotDetected); Rhinovirus/Enterovirus PCR Not Detected (NotDetected)
[2024-10-08 18:43] LABS: ALC (manual) 0.45 K/uL (1.2-3.4); ANC (manual) 0.03 K/uL (1.4-6.5); Lymphocytes # (manual) 0.45 K/uL (1.2-3.4); Lymphocytes % (manual) 90 %; Monocytes # (manual) 0.02 K/uL (0.11-0.59); Monocytes % (manual) 4 %; Neutrophils # (manual) 0.03 K/uL (1.40-6.50); Neutrophils % (manual) 6 %
[2024-10-08] MEDS: CEFEPIME 2000MG 2,000 MG/20 ML SYR IV STA (18:48)
--- NOTE | 2024-10-08 19:17 | History & Physical Report ---
Date of Service October 08, 2024 Assessment & Plan (1) Neutropenic fever: (2) Breast cancer, left: Plan: #Severe neutopenia #Pancytopenia secondary to chemo Left breast cancer diagnosed on 06/02/2024. Triple negative, HER2 [place] 1+ Last chemo treatment 09/30/24. Keytruda, Cytoxan, paclitaxel. Had pegfilgrastim on 10/01/24. Today found to have T: 38.8C at oncology clinic and found to be neutropenic. Ongoing Nausea, anorexia and decreased oral intake since last chemo treatment. Denies cough, rhinorrhea, shortness of breath, chest pain, abdominal pain, urinary symptoms Today in ER afebrile, P: 108, R: 20, BP 114/62, 96% on room air WBC: 0.5, Hgb: 8.5, PLT: 39,Absolute neutrophil count: 30. UA unremarkable. Negative respiratory Bio[employer] panel CXR: No acute infiltrate In ER started on cefepime and given IVF Neutropenic precautions IVF Blood cultures pending MRSA swab pending Cefepime, linezolid Reports 2 episodes loose stool today. Monitor for any further episodes or diarrhea. If recurrent episodes plan to obtain C. difficile, stool studies CBC, BMP in am Oncology consult #Hypomagnesemia Magnesium: 1.6 Replace and monitor (3) Depression: Plan: Hold home paroxetine while on linezolid as medication interaction DVT Prophylaxis SCDs Admit med surg Full Code as per discussion with pt Follows with Jewell Leyva PA-C for routine care Pt was seen and care coordinated with Dr Vera. See addendum I spent a total of 60 minutes reviewing notes, outpatient records, labs, medication, coordinating, documenting and providing care for this patient excluding time spent in the performance of separately billed services and excluding time spent by another provider/QHP. History of Present Illness Chief Complaint: fever Primary Care Provider: Samm Costa MD Patient is 48 year old female with PMH depression, breast cancer currently on chemo presented to ER from cancer clinic for fever today. History triple negative breast cancer. Last chemo treatment 09/30/24. Keytruda, Cytoxan, paclitaxel. Had pegfilgrastim on 10/01/24. Since this last chemo treatment has been having ongoing nausea, decreased appetite and decreased oral intake. Patient was seen at oncology today for some fluids. States has not been feeling well, feeling very fatigued, tired, nauseated since her last chemo treatment. While in clinic had recorded temperature of 38.8C. Her labs today showed neutropenia and patient was referred to ER for further evaluation. Patient has been taking Zofran at home as needed and feels like that helps some with nausea. No history neutropenic fever. Denies recent antibiotic use. Denies noted erythema, edema or pain at port site. States today two episodes loose stool but not overt diarrhea yet. She states takes senna daily and thought might be secondary to that. Denies abdominal pain. Denies recent travel or known ill contacts. Lives at home with . 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 Denies any known ill contacts. Denies known mold exposure. Denies around farm animals. Denies hematemesis, melena, hematochezia, JIMÉNEZ, syncope, vision changes, neck pain, CP, SOB, palpitations, cough, sore throat, choking, otalgia, rhinorrhea, abdominal pain, extremity edema, rashes, urinary symptoms. Allergies Allergy/AdvReac Type Severity Reaction Status Date / Time vancomycin Allergy Mild Itching Verified 10/08/24 19:15 Home Medications Medication Instructions Recorded Confirmed Type paroxetine HCl 40 mg tablet 40 mg PO DAILY 03/15/22 10/08/24 History cholecalciferol (vitamin D3) 25 0 mcg PO DAILY 10/08/24 10/08/24 History mcg (1,000 unit) capsule (Vitamin D3) olanzapine 10 mg tablet 10 mg PO UD 10/08/24 10/08/24 History sennosides 8.6 mg tablet (Senokot) 8.6 mg PO DAILY 10/08/24 10/08/24 History vitamin B complex 1 cap PO DAILY 10/08/24 10/08/24 History Past Med/Surg History Problem List Depression Breast cancer, left Neutropenic fever Flexor tenosynovitis of thumb Anxiety and depression Medical History Encounter for pre-operative examination Cat bite Lymphangitis Cellulitis of hand, right Bite by animal Surgical History History of colposcopy Family History Other Cancer Diabetes Social History Smoking Status: Never smoker Second Hand Exposure: No; Do You Dip or Chew Tobacco: No; Hx Alcohol Use: No Hx Substance Use: Yes Prescribed Medications: Marijuana Preferred Language: Kyrgyz Communication Ability: Effective Risk Advisor Required: No Beliefs That Will Affect Care: None marital status: Single Current Living Situation: Spouse and Family How many Children do You have: 0 Feels Safe at Home: Yes Assistive Devices: None Review of Systems Review of Systems: All systems reviewed & are unremarkable except as noted in HPI & below Physical Exam Physical Exam: PE per Dr Vera Results & Data Results & Data Vital Signs (Past 12 Hours) Vital Signs Temp Pulse Pulse Resp BP BP Pulse Ox 10/08/24 19:00 128/70 10/08/24 19:00 36.6 C 95 H 19 128/70 98 10/08/24 18:57 97 H 19 115/61 97 10/08/24 18:30 95 H 27 H 115/61 93 10/08/24 18:03 92 H 26 H 120/69 97 10/08/24 17:56 89 10/08/24 17:09 95 10/08/24 17:03 36.8 C 108 H 20 114/62 96 O2 Del Method 10/08/24 19:00 10/08/24 19:00 Room Air 10/08/24 18:57 10/08/24 18:30 10/08/24 18:03 10/08/24 17:56 10/08/24 17:09 Room Air 10/08/24 17:03 Room Air Laboratory Results Short CBC 10/08/24 Range/Units 17:35 WBC 0.50 L* (4.8-10.8) K/ul Hgb 8.5 L (12.0-16.0) g/dl Hct 23.8 L (37.0-47.0) % Plt Count 39 L (130-400) K/uL BMP 10/08/24 17:35 Sodium 134 L Potassium 3.5 Chloride 102 Carbon Dioxide 28 BUN 12 Creatinine 0.62 Glucose 166 H Calcium 7.5 L Liver Function 10/08/24 Range/Units 17:35 Total Bilirubin 0.6 (0.2-1.0) mg/dl Direct Bilirubin 0.1 (0-0.2) mg/dl AST 10 L (13-39) U/L ALT 17 (7-52) U/L Alkaline Phosphatase 84 (34-104) U/L Albumin 3.6 (3.4-5.0) gm/dl Urine 10/08/24 Range/Units 19:00 Urine Color Yellow Urine Appearance Clear (Clear) Urine pH 5.5 (4.5-7.5) Ur Specific [place] 1.022 (1.000-1.030) Urine Protein Negative (Negative) Urine Glucose (UA) Negative (Negative) Diagnostic Findings Chest X-Ray 10/08/24 17:09 Chest radiograph, one view History: Sepsis Comparison: 03/17/2022 Findings: Single AP view of the chest performed. No focal consolidation or pleural effusion. No pneumothorax. Right chest wall port with catheter tip at the mid SVC. The cardiomediastinal silhouette is within normal limits. Normal pulmonary vascularity. No evidence for lymphadenopathy. No visualized bony or soft tissue abnormality. Impression: Normal chest radiograph Electronically signed by Inder Tao 10-08-2024 5:50 PM Supervising Physician Co-Signing Physician Notes I have seen and discussed the case with the collaborating advanced practitioner. I agree with the above H&P. I have reviewed and confirmed the patients medical history, the findings on physical examination, and the patients diagnosis and treatment plan with Courtney BELLO and agree with the information documented. In short, Ms. Fung is a 48 yo woman with triple negative breast cancer admitted for febrile neutropenia. Patient last had chemo on 09/30 and has been feeling poorly ever since. This was her first session of adriamycin. She went to her routine heme/onc visit where they documented fever. She reports some nausea s/p chemo, but no diarrhea, dysuria, cough/congestion etc. GENERAL APPEARANCE: AxOx4, chronically ill appearing HEENT: NC, AT. MMM. EOMI, clear conjunctiva, oropharynx clear. alopecia NECK: Supple without lymphadenopathy. No stiffness or restricted ROM. right port without signs of superimposed infection HEART: Normal rate and regular rhythm, normal S1/S1, no m/r/g LUNGS: CTAB, moving air well. No crackles or wheezes are heard. ABDOMEN: Soft, nontender, nondistended with good bowel sounds heard. BACK: No CVAT, no obvious deformity. EXTREMITIES: Without cyanosis, clubbing or edema. NEUROLOGICAL: Grossly nonfocal. Alert and oriented, moving all 4 extremities. CN not formally tested but appear grossly intact. Skin: Warm and dry without any rash. #Febrile neutropenia #Severe neutropenia #Triple negative breast cancer on chemo #Immunocompromised no clear source at this time allergy to vanco, MRSA risk given port--will use linezolid for now continue cefepime Follow infectious work up consult onc for neupogen recommendations if warranted rest of plan as above I spent a total of 20 minutes coordinating, documenting, and providing care for this patient excluding time spent in the performance of separately billed services. All of the aforementioned completed outside of collaborating with the assigned advanced practitioner for a full treatment plan. I have reviewed the advanced practitioner's documentation, and I agree with, and take responsibility for the plan of care
[2024-10-08 19:28] LABS: Appearance Urine Clear (Clear); Bilirubin Urine Negative (Negative); Blood Urine Negative (Negative); Color Urine Yellow; Glucose Urine UA Negative (Negative); Ketones Urine Trace (Negative); Leukocyte Esterase Urine Negative (Negative); Nitrite Urine Negative (Negative); Protein Urine Negative (Negative); Specific Gravity Urine 1.022 (1.000-1.030); Urobilinogen Urine Negative (Negative); pH Urine 5.5 (4.5-7.5)
[2024-10-08] MEDS: MAGNESIUM SULFATE / D5W 1 GM/100 ML BAG IV STA (20:13)
[2024-10-08] MEDS: LINEZOLID 600 MG/300 ML BAG IV SCH (21:23)
--- NOTE | 2024-10-08 21:47 | Emergency Department Note ---
History of Present Illness General Chief complaint: Illness Stated complaint: LOW WBC, FEVER, N/V REF BY DOC Time Seen by Provider: 10/08/24 17:08 History of Present Illness Provider complaint: Neutropenic fever 48-year-old female on Adriamycin for breast cancer treatment under Dr. Darryn Fong [facility] presents emergency department for neutropenic fever. Patient was reporting fatigue and had a fever of 102 in their office today and was referred to emergency department. White blood cell count was 0.[address] Fong's office. Patient referred here for evaluation admission and IV antibiotics. Patient denies any shortness of breath. No chest pain. No abdominal pain. No nausea vomiting or diarrhea. Home Medications Medication Instructions Recorded Confirmed Type paroxetine HCl 40 mg tablet 40 mg PO DAILY 03/15/22 10/08/24 History cholecalciferol (vitamin D3) 25 0 mcg PO DAILY 10/08/24 10/08/24 History mcg (1,000 unit) capsule (Vitamin D3) olanzapine 10 mg tablet 10 mg PO UD 10/08/24 10/08/24 History sennosides 8.6 mg tablet (Senokot) 8.6 mg PO DAILY 10/08/24 10/08/24 History vitamin B complex 1 cap PO DAILY 10/08/24 10/08/24 History Allergies Allergy/AdvReac Type Severity Reaction Status Date / Time vancomycin Allergy Mild Itching Verified 10/08/24 19:15 Past Med/Surg History Problem List (Updated 10/08/24 @ 21:47 by Davis Quintanilla MD) Depression Breast cancer, left Neutropenic fever (Acute) Flexor tenosynovitis of thumb Anxiety and depression Medical History Encounter for pre-operative examination Cat bite Lymphangitis Cellulitis of hand, right Bite by animal Surgical History History of colposcopy Family History Other Cancer Diabetes Social History Smoking Status: Never smoker Second Hand Exposure: No; Do You Dip or Chew Tobacco: No; Hx Alcohol Use: No Hx Substance Use: Yes Prescribed Medications: Marijuana Preferred Language: Swedish Communication Ability: Effective Tunnel Heading Inspector Required: No Beliefs That Will Affect Care: None marital status: Single Current Living Situation: Spouse and Family How many Children do You have: 0 Feels Safe at Home: Yes Assistive Devices: None Physical Exam Vital Signs Vital Signs - 24 hr 10/08/24 17:03 10/08/24 17:09 10/08/24 17:56 Temperature 36.8 C Temperature Source Oral Pulse Rate 108 H 89 Pulse Rate [Apical] Pulse Rate from SpO2 Sensor Respiratory Rate 20 Respiratory Effort / Characteristics Non-Labored Spontaneous Respiratory Depth Normal Respiratory Pattern Regular Blood Pressure 114/62 Blood Pressure [Right Arm] Blood Pressure Mean 79 Blood Pressure Mean [Right Arm] Pulse Oximetry 96 95 Oxygen Delivery Method Room Air Room Air Sepsis Recent Fever Within 48 Hours Yes Sepsis New/Unexplained Change in Mental Status No Sepsis Action Taken by Nursing No Action Required 10/08/24 18:03 10/08/24 18:30 10/08/24 18:57 Temperature Temperature Source Pulse Rate 92 H 95 H 97 H Pulse Rate [Apical] Pulse Rate from SpO2 Sensor 92 H 95 H 98 H Respiratory Rate 26 H 27 H 19 Respiratory Effort / Characteristics Respiratory Depth Respiratory Pattern Blood Pressure 120/69 115/61 115/61 Blood Pressure [Right Arm] Blood Pressure Mean 86 79 79 Blood Pressure Mean [Right Arm] Pulse Oximetry 97 93 97 Oxygen Delivery Method Sepsis Recent Fever Within 48 Hours Sepsis New/Unexplained Change in Mental Status Sepsis Action Taken by Nursing 10/08/24 19:00 10/08/24 19:00 10/08/24 20:00 Temperature 36.6 C Temperature Source Oral Pulse Rate Pulse Rate [Apical] 95 H 98 H Pulse Rate from SpO2 Sensor Respiratory Rate 19 22 Respiratory Effort / Characteristics Non-Labored Spontaneous Non-Labored Spontaneous Respiratory Depth Respiratory Pattern Blood Pressure 128/70 Blood Pressure [Right Arm] 128/70 110/64 Blood Pressure Mean 91 Blood Pressure Mean [Right Arm] 89 79 Pulse Oximetry 98 96 Oxygen Delivery Method Room Air Room Air Sepsis Recent Fever Within 48 Hours Sepsis New/Unexplained Change in Mental Status Sepsis Action Taken by Nursing 10/08/24 21:00 Temperature Temperature Source Pulse Rate Pulse Rate [Apical] 90 Pulse Rate from SpO2 Sensor Respiratory Rate 21 Respiratory Effort / Characteristics Non-Labored Spontaneous Respiratory Depth Respiratory Pattern Blood Pressure Blood Pressure [Right Arm] 108/72 Blood Pressure Mean Blood Pressure Mean [Right Arm] 84 Pulse Oximetry 94 Oxygen Delivery Method Room Air Sepsis Recent Fever Within 48 Hours Sepsis New/Unexplained Change in Mental Status Sepsis Action Taken by Nursing Physical Exam GENERAL: oriented to person, place, and time. appears well-developed and well- nourished. HENT: Exam performed. - Head: Normocephalic and atraumatic. EYES: Conjunctivae and EOM are normal. Right eye exhibits no discharge. Left eye exhibits no discharge. No scleral icterus. NECK: Normal range of motion. Neck supple. No JVD present. CV: Normal rate, regular rhythm, normal heart sounds and intact distal pulses. There is no peripheral edema. Palpable radial pulses bue. PULM/CHEST: Effort normal and breath sounds normal. No respiratory distress. No stridor. no wheezes. no rales. ABD: The abdomen is soft. There is no tenderness. NEURO: Motor and sensation grossly intact. SKIN: Skin is warm and dry. He is not diaphoretic. PSYCH: normal mood and affect. Behavior is normal. Judgment and thought content normal. Course Course 170: The patient was evaluated in room A9. A complete history and physical exam was performed Administered Medications Linezolid (Zyvox) 600 mg in 300 mls @ 300 mls/hr IV Q12H YAYA Stop: 10/10/24 19:29 Last Admin: 10/08/24 21:23 Dose: 300 mls/hr Documented By: AYAZ Discontinued Medications Sodium Chloride (Nss) 1,000 mls @ 999 mls/hr IV .Q1H1M ONE Stop: 10/08/24 18:09 Last Infusion: 10/08/24 18:55 Dose: Infused Documented By: Admin: 10/08/24 17:42 Dose: 999 mls/hr Documented By: HORACIO Cefepime HCl (Maxipime 2000mg) 2,000 mg in 20 mls @ 5 mls/min IV NOW STA; Protocol Stop: 10/08/24 17:15 Last Admin: 10/08/24 18:48 Dose: 5 mls/min Documented By: HEATHER Magnesium Sulfate/Dextrose (Magnesium Sulfate / D5w) 1 gm in 100 mls @ 100 mls/hr IV NOW STA Stop: 10/08/24 20:29 Last Infusion: 10/08/24 21:13 Dose: Infused Documented By: Admin: 10/08/24 20:13 Dose: 100 mls/hr Documented By: AYAZ Medical Decision Making Laboratory Data Attestation: I reviewed the patient's lab results. 10/08/24 17:35 10/08/24 17:35 Lab Results 10/08/24 10/08/24 10/08/24 Range/Units 17:35 19:00 Unknown WBC 0.50 L* (4.8-10.8) K/ul RBC 2.52 L (4.20-5.40) M/uL Hgb 8.5 L (12.0-16.0) g/dl Hct 23.8 L (37.0-47.0) % MCV 94.4 (80.0-100.0) fL MCH 33.7 (25.0-34.0) pg MCHC 35.7 (32.0-36.0) g/dL RDW Std Deviation 46.0 (36.4-46.3) fL RDW Coeff of Le 13.2 (11.5-14.5) % Plt Count 39 L (130-400) K/uL MPV 11.0 (9.4-12.4) fL Neutrophils % (Manual) 6 % Lymphocytes % (Manual) 90 % Monocytes % (Manual) 4 % Neutrophils # (Manual) 0.03 L (1.40-6.50) K/uL Total Absolute Neuts 0.03 L* (1.4-6.5) K/uL Lymphocytes # (Manual) 0.45 L (1.2-3.4) K/uL Total Abs Lymphocytes 0.45 L (1.2-3.4) K/uL Monocytes # (Manual) 0.02 L (0.11-0.59) K/uL PT 12.1 H (9.0-12.0) Seconds INR 1.1 (0.9-1.1) APTT 33 H (21-31) Seconds PTT Ratio 1.2 VBG pH 7.41 (7.36-7.41) VBG pCO2 42 (38-50) mmHg VBG pO2 39 mmHg VBG HCO3 27 mmol/L VBG O2 Saturation 67.4 % VBG Base Excess 1.7 mEq/L Sodium 134 L (136-145) mmol/L Potassium 3.5 (3.5-5.1) mmol/L Chloride 102 (98-107) mmol/L Carbon Dioxide 28 (21-32) mmol/L Anion Gap 4 (3-11) BUN 12 (6-23) mg/dl Creatinine 0.62 (0.6-1.2) mg/dl Est Cr Clr Drug Dosing 128.4 ml/min eGFR 109.10 BUN/Creatinine Ratio 19.4 (10-20) Glucose 166 H (70-99(Fasting)) mg/dl Lactate 1.3 (0.4-2.0) mmol/L Calcium 7.5 L (8.6-10.3) mg/dl Magnesium 1.6 L (1.7-2.4) mg/dl Total Bilirubin 0.6 (0.2-1.0) mg/dl Direct Bilirubin 0.1 (0-0.2) mg/dl AST 10 L (13-39) U/L ALT 17 (7-52) U/L Alkaline Phosphatase 84 (34-104) U/L Troponin I High Sens < 2.3 (0-14) pg/ml Total Protein 5.7 L (6.0-8.3) gm/dl Albumin 3.6 (3.4-5.0) gm/dl Procalcitonin 0.18 (0-0.5) ng/ml Urine Color Yellow Urine Appearance Clear (Clear) Urine pH 5.5 (4.5-7.5) Ur Specific Mcallister 1.022 (1.000-1.030) Urine Protein Negative (Negative) Urine Glucose (UA) Negative (Negative) Urine Ketones Trace H (Negative) Urine Blood Negative (Negative) Urine Nitrite Negative (Negative) Urine Bilirubin Negative (Negative) Urine Urobilinogen Negative (Negative) Ur Leukocyte Esterase Negative (Negative) Nasal Screen MRSA (PCR) Negative (Negative) Adenovirus (PCR) Not Detected (NotDetected) B. pertussis DNA (PCR) Not Detected (NotDetected) B.parapertussis DNA PCR Not Detected (NotDetected) C. pneumoniae DNA (PCR) Not Detected (NotDetected) Coronavirus OC43 (PCR) Not Detected (NotDetected) Coronavirus HKU1 (PCR) Not Detected (NotDetected) Coronavirus 229E (PCR) Not Detected (NotDetected) SARS-CoV-2 (PCR) Not Detected (NotDetected) Coronavirus NL63 (PCR) Not Detected (NotDetected) Human Metapneumovir PCR Not Detected (NotDetected) Influenza Type A (PCR) Not Detected (NotDetected) Influenza Type B (PCR) Not Detected (NotDetected) M. pneumoniae (PCR) Not Detected (NotDetected) Parainfluenza 1 (PCR) Not Detected (NotDetected) Parainfluenza 2 (PCR) Not Detected (NotDetected) Parainfluenza 3 (PCR) Not Detected (NotDetected) Parainfluenza 4 (PCR) Not Detected (NotDetected) RSV (PCR) Not Detected (NotDetected) Entero/Rhino (PCR) Not Detected (NotDetected) Imaging Data Attestation: I personally reviewed and interpreted this imaging study as follows: My Impression: Chest x-ray negative. Airway clear. No pneumothorax. No consolidation. No cardiomegaly or cephalization.. No free air under the diaphragm. No fractures of the skeletal structures. Radiologist's Impression: Chest X-Ray 10/08/24 17:09 Chest radiograph, one view History: Sepsis Comparison: 03/17/2022 Findings: Single AP view of the chest performed. No focal consolidation or pleural effusion. No pneumothorax. Right chest wall port with catheter tip at the mid SVC. The cardiomediastinal silhouette is within normal limits. Normal pulmonary vascularity. No evidence for lymphadenopathy. No visualized bony or soft tissue abnormality. Impression: Normal chest radiograph Electronically signed by Inder Tao 10-08-2024 5:50 PM ECG Data Attestation: I personally reviewed and interpreted this ECG as follows: Rate (beats per minute): 90 Rhythm: + normal sinus ECG Intervals/blocks: + Normal QRS, + Normal AR and + Normal QT-c ECG ST segments: + Normal ST segments MDM Narrative Cardiac monitoring: An order was placed for continuous cardiac monitoring. The monitor shows a rate of 90 with sinus rhythm interpreted by me Vital signs stable. Labs show white blood cell count of 0.5 hemoglobin 8.5 total absolute neutrophils 0.3 calcium 7.5 troponin negative procalcitonin within normal limits lactic acid within normal limits urinalysis [employer] respiratory negative. Chest x-ray negative. Patient treated with cefepime and admitted to the [facility] hospitalist team blood cultures are pending. Impression & Plan Neutropenic fever Discharge Plan Visit Data Chief Complaint: Illness Stated Complaint: LOW WBC, FEVER, N/V REF BY DOC ED Provider: Davis Quintanilla Discharge Problem: Neutropenic fever Patient Disposition: Admitted As Inpatient Forms Stand Alone Forms: My [facility] Prescriptions Prescriptions: No Action paroxetine HCl 40 mg tablet 40 mg PO DAILY sennosides [Senokot] 8.6 mg Tablet 8.6 mg PO DAILY vitamin B complex [B Complex] Capsule 1 cap PO DAILY cholecalciferol (vitamin D3) [Vitamin D3] 25 mcg (1,000 unit) Capsule 0 mcg PO DAILY Rx Instructions: PT UNSURE OF STRENGTH olanzapine 10 mg tablet 10 mg PO UD Rx Instructions: 1 tablet by mouth at bedtime on days 1, 2, 3 and 4 of chemo Referrals Referrals: Samm Costa MD [Primary Care Provider] -
[2024-10-08] MEDS ORDERED: OLANZAPINE 2.5 MG TAB PO PRN (21:59)
[2024-10-08] MEDS ORDERED: POLYETHYLENE (MIRALAX) 17 GM PACK PO PRN (21:59)
[2024-10-08] MEDS: SODIUM CHLORIDE 0.9% 1,000 ML IV SCH (22:39)
[2024-10-09] MEDS: ONDANSETRON INJ 2 MG/ML 2 ML VIAL IV PRN (00:04)
[2024-10-09] MEDS: ACETAMINOPHEN 325 MG TAB PO PRN (01:14)
[2024-10-09] MEDS: CEFEPIME 2000MG 2,000 MG/20 ML SYR IV SCH (03:03)
[2024-10-09 04:08] LABS: Hematocrit (blood only) 22.1 % (37.0-47.0); Hemoglobin 7.8 g/dl (12.0-16.0); Mean Corpuscular Hemoglobin 33.5 pg (25.0-34.0); Mean Corpuscular Hgb Conc 35.3 g/dL (32.0-36.0); Mean Corpuscular Volume 94.8 fL (80.0-100.0); Mean Platelet Volume 10.6 fL (9.4-12.4); Platelet Count 31 K/uL (130-400); RDW Coefficient of Variation 13.2 % (11.5-14.5); RDW Standard Deviation 45.5 fL (36.4-46.3); Red Blood Count 2.33 M/uL (4.20-5.40); White Blood Count 0.73 K/ul (4.8-10.8)
[2024-10-09 04:11] LABS: BUN Creatinine Ratio 13.8 (10-20); Calcium 7.4 mg/dl (8.6-10.3); Magnesium 1.9 mg/dl (1.7-2.4); Potassium 3.9 mmol/L (3.5-5.1)
[2024-10-09 04:26] LABS: Basophils # (auto) 0.01 K/uL (0.00-0.20); Basophils % (auto) 1.4 %; Eosinophils # (auto) 0.01 K/uL (0.00-0.50); Eosinophils % (auto) 1.4 %; Lymphocytes % (auto) 82.2 %; Monocytes # (auto) 0.04 K/uL (0.11-0.59); Monocytes % (auto) 5.5 %; Neutrophils # (auto) 0.07 K/uL (1.40-6.50); Neutrophils % (auto) 9.5 %
--- OUTSIDE RECORDS SUMMARY | 2024-10-09 06:29 | External Medical Summary ---
Author Name Unknown Address Unknown Organization [id number] [address] [place] [address] Laboratory Report Ordering Provider Test Date Status JOCY DILL 10/08/2024 15:03:17 Final Observation Date Value Abnormality Reference (Units ) Status BUN 10/08/2024 15:03:17 13 6-20 (mg/dL) Final Creatinine 10/08/2024 15:03:17 0.7 0.5-1.0 (mg/dL) Final Glomerular filtration rate/1.73 sq M.predicted [Volume Rate/Area] in Serum, Plasma or Blood by Creatinine-based formula (CKD-EPI) 10/08/2024 15:03:17 >90 >=60 (mL/min) Final eGFR is calculated based on the CKD-EPI 2020 equation. Sodium 10/08/2024 15:03:17 135 135-146 (m mol/L) Final Potassium 10/08/2024 15:03:17 3.8 3.5-5.1 (m mol/L) Final Cl 10/08/2024 15:03:17 99 98-107 (mm ol/L) Final CO2 10/08/2024 15:03:17 27 22-32 (mmo l/L) Final Anion gap 10/08/2024 15:03:17 9 7-15 (mmol /L) Final Glucose 10/08/2024 15:03:17 115 70-120 (mg /dL) Final Albumin 10/08/2024 15:03:17 3.6 Below low normal 3.8 -5.0 (g/dL) Final AST (Aspartate aminotransferase) 10/08/2024 15:03:17 11 10-35 (U/L) Fin al Alk Phos 10/08/2024 15:03:17 104 35-130 (U/ L) Final Bilirubin, Total 10/08/2024 15:03:17 0.5 <=1 .2 (mg/dL) Final Calcium 10/08/2024 15:03:17 8.0 Below low normal 8.4 -10.2 (mg/dL) Final Protein 10/08/2024 15:03:17 6.0 6.0-8.3 (g /dL) Final ALT (Alanine aminotransferase) 10/08/2024 15:03:17 14 10-35 (U/L) Shaheen aguilar Performing Location [facility] [address] [place] [address]
--- OUTSIDE RECORDS SUMMARY | 2024-10-09 06:29 | External Medical Summary ---
Author Name Unknown Address Unknown Organization [facility] [place] [address] Laboratory Report Ordering Provider Test Date Status JOCY DILL 10/08/2024 15:03:17 Final Observation Date Value Abnormality Reference (Units ) Status Magnesium 10/08/2024 15:03:17 1.8 1.5-2.6 (m g/dL) Final Performing Location [facility] [place] [address]
--- OUTSIDE RECORDS SUMMARY | 2024-10-09 06:29 | External Medical Summary ---
Author Name Unknown Address Unknown Organization K09[facility] [place] [address] Laboratory Report Ordering Provider Test Date Status JOCY DILL 10/08/2024 15:03:17 Final Observation Date Value Abnormality Reference (Units ) Status COMMENT 10/08/2024 15:03:17 WBC < 0.60, WBC differential cancelled. Please call Client Services if differential is required. Final Performing Location [facility] [place] [address]
--- OUTSIDE RECORDS SUMMARY | 2024-10-09 06:29 | External Medical Summary | Summary of Care ---
Author Name Unknown Organization [facility] Address [address] [place] [facility] [place] [place] [address] Phone [phone] Care Team Providers Care Assistant Spa Manager Name Role Phone Jewell Leyva PAPrema Primary Care Provider [phone] Encounter Details Date Type Department Care Team (Late st Contact Info) Description 09/30/2024 8:30 AM EDT Office Visit Hematology/Oncology [facility] [address] [place] [id number] Ama Barksdale CRNP [address] [place] [address] Malignant neoplasm of overlapping sites of left breast in female, estrogen receptor negative (HCC)*; Prevention of chemotherapy-induced neutropenia Allergies Active Allergy Reactions Criticality Noted Date Comments Vancomycin Low 03/16/2022 documented as of this encounter (statuses as of 10/03/2024) Medications MULTIVITAMINS PO TABS one a day Active ALPRAZolam 0.25 MG Oral Tablet (xaNAX) Take by mouth 1 Tablet in the morning AND 1 Tablet at noon AND 1 Tablet before bedtime. As needed for anxiety. 30 Tablet 1 11/14/19 Active Additional Information Patient not taking.Reported on 09/30/2024 Nitroglycerin 0.2% rectal ointment Administer into the rectum 2 times a day. 20 g 3 11/06/19 24 Active Additional Information Patient not taking.Reported on 09/30/2024 diphenhydrAMINE HCl 25 MG Oral Tablet (Benadryl)Indication s:Malignant neoplasm of overlapping sites of left breast in female, estrogen receptor negative (HCC),Encounter for antineoplastic chemotherapy,Prevent ion of chemotherapy-induced neutropenia Take by mouth 1 Capsule 12 hours prior to paclitaxel infusion. 12 Tablet 06/15/20 Active Additional Information Patient not taking.Reported on 09/30/2024 Famotidine 20 MG Oral Tablet (Pepcid)Indications: Malignant neoplasm of overlapping sites of left breast in female, estrogen receptor negative (HCC),Encounter for antineoplastic chemotherapy,Prevent ion of chemotherapy-induced neutropenia Take by mouth 1 Tablet 12 hours prior to paclitaxel infusion. 12 Tablet 06/15/20 Active Additional Information Patient not taking.Reported on 09/30/2024 Prochlorperazine Maleate 10 MG Oral Tablet (Compazine)Indicatio ns:Malignant neoplasm of overlapping sites of left breast in female, estrogen receptor negative (HCC),Encounter for antineoplastic chemotherapy,Prevent ion of chemotherapy-induced neutropenia Take 1 Tablet by mouth every 6 hours as needed for Nausea. 30 Tablet 5 06/15/20 Active Additional Information Patient not taking.Reported on 06/23/2024 Lidocaine-Prilocaine 2.5-2.5 % External Cream (Emla)Indications:Ma lignant neoplasm of overlapping sites of left breast in female, estrogen receptor negative (HCC) APPLY TO SKIN OVER MEDIPORT & COVER 1HR PRIOR TO ACCESSING. 30 g 1 06/15/20 Active Additional Information Patient not taking.Reported on 09/30/2024 Loratadine 10 MG Oral Tablet (Claritin)Indication s:Malignant neoplasm of overlapping sites of left breast in female, estrogen receptor negative (HCC) Take 1 tablet by mouth daily x5 days starting the day of chemotherapy 40 Tablet 06/15/20 Active Additional Information Patient not taking.Reported on 09/30/2024 Ondansetron HCl 8 MG Oral Tablet (Zofran)Indications: Malignant neoplasm of overlapping sites of left breast in female, estrogen receptor negative (HCC) Take 1 Tablet by mouth every 8 hours as needed for Nausea. 30 Tablet 3 06/15/20 Active Additional Information Patient not taking.Reported on 09/30/2024 dexAMETHasone 4 MG Oral Tablet (Decadron)Indication s:Malignant neoplasm of overlapping sites of left breast in female, estrogen receptor negative (HCC) Take 2 tablets by mouth for 2 days prior to chemotherapy ( as well as 2 tablets by mouth for 3 days after chemotherapy). 16 Tablet 06/29/20 24 Active Amoxicillin-Pot Clavulanate 875-125 MG Oral Tablet (Augmentin)Indicatio ns:Malignant neoplasm of overlapping sites of left breast in female, estrogen receptor negative (HCC) Take 1 Tablet by mouth in the morning and 1 Tablet before bedtime. 28 Tablet 06/28/20 24 Active oxyCODONE-Acetaminop hen 5-325 MG Oral Tablet (Percocet)Indication s:Malignant neoplasm of overlapping sites of left breast in female, estrogen receptor negative (HCC) Take 2 Tablets by mouth every 6 hours as needed for Pain, Mild, Pain, Moderate or Pain, Severe. 90 Tablet 06/28/20 24 Active PARoxetine HCl 40 MG Oral Tablet (pAXil) TAKE 1 TABLET BY MOUTH EVERY MORNING 90 Tablet 1 07/13/20 24 Active OLANZapine 10 MG Oral Tablet (zyPREXA)Indications :Malignant neoplasm of overlapping sites of left breast in female, estrogen receptor negative (HCC),Encounter for antineoplastic chemotherapy,Prevent ion of chemotherapy-induced neutropenia Take 1 Tablet by mouth at bedtime. On days 1, 2, 3, and 4 of chemo. 20 Tablet 09/08/19 25 Active Gabapentin 100 MG Oral Capsule (Neurontin)Indicatio ns:Neuropathy due to chemotherapeutic drug (HCC) Take 1 Capsule by mouth at bedtime. 30 Capsule 1 09/08/19 25 Active documented as of this encounter (statuses as of 10/03/2024) Active Problems Problem Noted Date Diagnosed Date Dehydration 07/05/2024 Malignant neoplasm of overla pping sites of left breast in female, estrogen receptor negative 06/14/2024 Encounter for antineoplastic chemotherapy 2023 Prevention of chemotherapy-induced neutropenia 1 08/14/2023 Food insecurity 05/31/2024 Overview: Per [facility] Protocol ASCUS with positive high risk HPV cervical 06/04 Major depressive disorder, r ecurrent severe without psychotic features 04/10/2023 Major depressive disorder, single episode, moder ate 06/07/2021 Encounter for other general counseling or advice on contraception 04/27/2010 Overview (04/20/2024): ICD-10 update of inactive term documented as of this encounter (statuses as of 10/03/2024) Resolved Problems Problem Noted Date Diagnosed Date Resolved Date Current mild episode of chente r depressive disorder without prior episode 08/19/2018 4 ABN PAP SMEAR-CERVIX 999 Encounter for supervision of other normal 05/28/2016 Overview (11/21/2015): ICD-10 update of inactive term documented as of this encounter (statuses as of 10/03/2024) Immunizations Name Administration Dates Next Due TD - Tetanus/Diptheria (ADULT) 06/03/2017 TD, Preservative Free 03/14/2022 TDAP, Age 7 and older, IM (Adacel) 07/24/2007 documented as of this encounter Social History Tobacco Use Types Packs/Day Years Used Date Smoking Tobacco: Never Smokeless Tobacco: Never Alcohol Use Standard Drinks/Week Comments Yes 0 (1 standard drink = 0.6 oz pur e alcohol) once per month PHQ-2 Answer Date Recorded PHQ Adult Total Score 17 05/17/2024 Hunger Vital Sign Answer Date Recorded Within the past 12 months, y ou worried that your food would run out before you got the money to buy more. Often true 05/17/20 24 Within the past 12 months, t he food you bought just didn't last and you didn't have money to get more. Often true 05/17/2024 Childcare Answer Date Recorded Do you feel overwhelmed with taking care of a child, family member or friend? No 05/17/2024 Does your family need help f inding childcare? (Household - for ages 0-17 years) Not on file 05/17/2024 Clothing Answer Date Recorded Have you been unable to get clothing when it was really needed? No 05/17/2024 Is your family able to get c lothes or diapers when needed? (Household - for ages 0-17 years) Not on file 05/17/2024 Personal Safety Answer Date Recorded Do you feel unsafe or have concerns for your saf ety? No 05/17/2024 Do you have concerns for you r family's safety? (Household - for ages 0-17 years) Not on file 05/17/2024 Utilities Answer Date Recorded Do you have trouble paying y our heating, water, or electric bill? Yes 05/17/2024 Is your family able to pay t he heat, water, or electric bill? (Household - for ages 0-17 years) Not on file 05/17/2024 Does your family have access to good internet? (Household - for ages 0-17 years) Not on file 05/17/2024 Employment Status Answer Date Recorded Are you unemployed or without regular income? No 05/17/2024 Does the household have a re gular source of income? (Household - for ages 0-17 years) Not on file 05/17/2024 Social Connections Answer Date Recorded How often do you feel lonely or isolated from those around you? Sometimes 05/17/2024 Financial Resource Strain Answer Date R ecorded Do you have any trouble payi ng for your medications, or do you think you might in the future? No 05/17/2024 Does your family have troubl e paying for medicine? (Household - for ages 0-17 years) Not on file 05/17/2024 Transportation Needs Answer Date Record ed Do you have trouble getting a ride to medical visits or work? (Adult - for ages 18 years and over) Not on file 05/17/2024 Does your family have a hard time getting a ride to doctors visits? (Household - for ages 0-17 years) Not on file 05/17/2024 Has lack of transportation k ept you from medical appointments, meetings, work, or from getting things needed for daily living? Check all that apply. No 05/17/2024 Do you (or your family) have trouble finding or paying for a ride (transportation)? (Household - for ages 0-17 years) Not on file 05/17/2024 Housing Stability Answer Date Recorded Do you currently live in a s helter or have no steady place to sleep at night? No 05/17/2024 Do you think you are at risk of becoming homeless? (Adult - for ages 18 years and over) Not on file 05/17/2024 Does your family worry about paying for your home or becoming homeless? (Household - for ages 0-17 years) Not on file 1 Are you homeless or worried that you might be in the future? No 05/17/2024 Are you (or your family) tito eless or worried that you might be in the future? (Household - for ages 0-17 years) Not on file Food Insecurity Answer Date Recorded Do you need food for this week? Yes 05/17/2024 Are you able to get enough f ood for your family? (Household - for ages 0-17 years) Not on file 05/17/2024 Does your family need food t his week? (Household - for ages 0-17 years) Not on file 05/17/2024 Do you always have enough fo od for your family? (Household - for ages 0-17 years) Not on file 05/17/2024 Food Insecurity Answer Date Recorded Within the past 12 months, y ou worried that your food would run out before you got the money to buy more. Often true 05/17/20 24 Within the past 12 months, t he food you bought just didn't last and you didn't have money to get more. Often true 05/17/2024 Do you need food for this week? 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 Not on file Not on file Not on file documented as of this encounter Last Filed Vital Signs Vital Sign Reading Time Taken Comments Blood Pressure 129/82 09/30/2024 8:24 AM EDT Pulse 87 09/30/2024 8:24 AM EDT Temperature 36.4 C (97.5 F) 09/30/2024 8:24 AM ED T Respiratory Rate 16 09/30/2024 8:24 AM EDT Oxygen Saturation 94% 09/30/2024 8:24 AM EDT Inhaled Oxygen Concentration - - Weight 96.5 kg (212 lb 11.2 oz) 09/30/2024 8:24 AM EDT Height - - Body Mass Index 35.35 06/24/2024 3:07 PM EST documented in this encounter Progress Notes * Ama BarksdaleSENDY - 09/30/2024 8:30 AM EDT Hematology/Oncology Outpatient Clinic note [address] [place], [place] [address] Name: Radha Fung Date: 09/29/2024 CHIEF COMPLAINT: Radha Fung is a 48 year old female here today for f/u visit today. Patient of Dr. Darryn Fong. From Patient chart confirmed with patient. 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 -Left axillary and left internal mammary lymph node involvement based on the PET-CT scan findings. DATE OF DIAGNOSIS: 06/02/24 CURRENT TREATMENT: Neoadjuvant Chemotherapy protocol as follows: Pembrolizumab 200 mg, carboplatin AUC 5 and paclitaxel 175 mg/m2 to be given on day 1 of cycles 1-4with pegfilgrastim 6 mg SQ injection given on day 2 of each cycle (06/28/24 - 09/08/24) Followed by Pembrolizumab 200 mg + Doxorubicin + Cyclophosphamide q21 Days x 4 cycles - scheduled to receive first dose today She will receive prophylactic Pegfilgrastim to prevent febrile neutropenia. Followed by Surgery DIAGNOSTIC WORKUP: She had a bilateral breast mammogram on 01/16/2024, Area of palpable concern in the left breast 11 o'clock corresponds to the simple cysts. No other suspicious findings noted She continued to have same mass which has increased in size and causing some local discomfort. Left breast FNA --> suspicious for malignancy ( 05/27/2024 ) Left breast core needle biopsy on 06/02/2024 --> invasive ductal carcinoma grade 3, extensive necrosis. -ER negative, SD weakly positive in 10% malignamt cells, HER2 Monroe negative by IHC. Bilateral breast MRI on 06/10/2024: -right breast no suspicious findings Left breast --> biopsy-proven left upper inner quadrant invasive ductal carcinoma multiple similar-appearing masses surrounding and V - Hyper enhancement and thickening of the left breast skin. -left axillary internal mammary lymphadenopathy. PET-CT scan on 06/15/2024: -hypermetabolic left breast mass with central necrosis measuring about 5.7 x 4.9 cm SUV of 23.3 - Hypermetabolic left axillary lymphadenopathy largest one measuring 1 x 1.7 cm -left internal mammary lymph node measuring 1.1 x 1.3 cm -no other FDG avid disease noted anywhere else. Left breast skin punch biopsy on 06/22/2024 --> edematous changes with acute and chronic inflammation, no malignancy. OTHER IMPORTANT HISTORY: -she is on Paxil for the several years -Pegfilgrastim induced bone pain, takes Percocet on p.r.n. basis. HISTORY OF PRESENT ILLNESS: Radha Fung is a 48 year old female with a history as outlined above. Currently here for f/u visit today and consideration for C5D1 of treatment. Nausea well controlled on Zyprexa thus far. Bowels moving well on Senokot. Denies mouth sores or pain. Did get worsening neuropathy with this cycle.Mostly in the lower extremities and hands. Usually goes away before the next cycle. Hands have resolved. Still having some loss of sensation in the bottom of her feet. Denies fall risk. Did get bone pain with her pegfilgrastim injection that resolved with Percocet. Does report fatigue. Eating and drinking well. Does have taste changes. Past Medical History: Diagnosis Date Abnormal Papanicolaou smear of cervix and cervical HPV Malignant neoplasm of overlapping sites of left breast in female, estrogen receptor negative (HCC) 06/14/2024 Other anxiety states Varicella without complication Past Surgical History: Procedure Laterality Date COLONOSCOPY, DIAGNOSTIC (RECTUM) 04/11/2023 hemorrhoids/recall 10 years/COLONOSCOPY FLEXIBLE PROXIMAL DIAGNOSTIC performed by Rajendra Leon MD at [facility] COLPOSCPY CERVIX W/BX AND EC 1997,1998 INSER TUNN ACC DEV;5 YRS/OLDER Right 06/23/2024 INSERT TUNNELED CENTRAL VENOUS ACCESS WITH SUBQ PORT performed by Rubén Hou MD at [facility] SURGICAL PROCEDURE ONLY Left 05/27/2024 Aspiration on left breast by Dr. Fawn Lindsay. 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 Comment: zechariah giang 2016 Other Topics Concern Service No Blood Transfusions No Caffeine Concern No Occupational Exposure No Hobby Hazards No Sleep Concern No Stress Concern No Weight Concern No Special Diet No Back Care No Exercise Yes Comment: CV/wt/toning daily - lost 15-20 lbs Bike Helmet Not Asked Seat Belt Yes Self-Exams Yes Comment: breast, occ Social History Narrative Not on file Social Needs Financial Resource Strain: Low Risk (05/17/2024) Financial Resource Strain Do you have any trouble paying for your medications, or do you think you might in the future? (Adult - for ages 18 years and over): No Does your family have trouble paying for medicine? (Household - for ages 0-17 years): Not on file Food Insecurity: Food Insecurity Present (05/17/2024) Food Insecurity Worried About Running Out of Food in the Last Year: Often true Ran Out of Food in the Last Year: Often true Do you need food for this week? (Adult - for ages 18 years and over): Yes Transportation Needs: No Transportation Needs (05/17/2024) Transportation Needs Do you have trouble getting a ride to medical visits or work? (Adult - for ages 18 years and over):Not on file Does your family have a hard time getting a ride to doctors visits? (Household - for ages 0-17 years): Not on file Has lack of transportation kept you from medical appointments, meetings, work, or from getting things needed for daily living? Check all that apply. (Adult - for ages 18 years and over): No Do you (or your family) have trouble finding or paying for a ride (transportation)? (Household - for ages 0-17 years): Not on file Social Connections: Socially Integrated (05/17/2024) Social Connections How often do you feel lonely or isolated from those around you? (Adult - for ages 18 years and over): Sometimes Housing Stability: Low Risk (05/17/2024) Housing Stability Do you currently live in a fpc or have no steady place to sleep at night? (Adult - for ages 18 years and over): No Do you think you are at risk of becoming homeless? (Adult - for ages 18 years and over): Not on file Does your family worry about paying for your home or becoming homeless? (Household - for ages 0-17 years): Not on file Are you homeless or worried that you might be in the future? (Adult - for ages 18 years and over): No Are you (or your family) homeless or worried that you might be in the future? (Household - for ages0-17 years): Not on file Review of patient's allergies indicates: Allergen Reactions Vancomycin Current Outpatient Medications Medication Sig Dispense Refill MULTIVITAMINS PO TABS one a day ALPRAZolam 0.25 MG Oral Tablet (xaNAX) Take by mouth 1 Tablet in the morning AND 1 Tablet at noon AND 1 Tablet before bedtime. As needed for anxiety. (Patient not taking: Reported on 05/27/2024) 30 Tablet 1 Nitroglycerin 0.2% rectal ointment Administer into the rectum 2 times a day. (Patient not taking: Reported on 05/27/2024) 20 g 3 diphenhydrAMINE HCl 25 MG Oral Tablet (Benadryl) Take by mouth 1 Capsule 12 hours prior to paclitaxel infusion. (Patient not taking: Reported on 06/23/2024) 12 Tablet 0 Famotidine 20 MG Oral Tablet (Pepcid) Take by mouth 1 Tablet 12 hours prior to paclitaxel infusion.(Patient not taking: Reported on 06/23/2024) 12 Tablet 0 Prochlorperazine Maleate 10 MG Oral Tablet (Compazine) Take 1 Tablet by mouth every 6 hours as needed for Nausea. (Patient not taking: Reported on 06/23/2024) 30 Tablet 5 Lidocaine-Prilocaine 2.5-2.5 % External Cream (Emla) APPLY TO SKIN OVER MEDIPORT & COVER 1HR PRIOR TO ACCESSING. (Patient not taking: Reported on 06/23/2024) 30 g 1 Loratadine 10 MG Oral Tablet (Claritin) Take 1 tablet by mouth daily x5 days starting the day of chemotherapy (Patient not taking: Reported on 06/23/2024) 40 Tablet 0 Ondansetron HCl 8 MG Oral Tablet (Zofran) Take 1 Tablet by mouth every 8 hours as needed for Nausea. (Patient not taking: Reported on 06/23/2024) 30 Tablet 3 dexAMETHasone 4 MG Oral Tablet (Decadron) Take 2 tablets by mouth for 2 days prior to chemotherapy ( as well as 2 tablets by mouth for 3 days after chemotherapy). 16 Tablet 0 Amoxicillin-Pot Clavulanate 875-125 MG Oral Tablet (Augmentin) Take 1 Tablet by mouth in the morning and 1 Tablet before bedtime. 28 Tablet 0 oxyCODONE-Acetaminophen 5-325 MG Oral Tablet (Percocet) Take 2 Tablets by mouth every 6 hours as needed for Pain, Mild, Pain, Moderate or Pain, Severe. 90 Tablet 0 PARoxetine HCl 40 MG Oral Tablet (pAXil) TAKE 1 TABLET BY MOUTH EVERY MORNING 90 Tablet 1 OLANZapine 10 MG Oral Tablet (zyPREXA) Take 1 Tablet by mouth at bedtime. On days 1, 2, 3, and 4 ofchemo. 20 Tablet 0 Gabapentin 100 MG Oral Capsule (Neurontin) Take 1 Capsule by mouth at bedtime. 30 Capsule 1 No current facility-administered medications for this visit. REVIEW OF SYSTEMS: See HPI - otherwise negative OBJECTIVE: Filed Vitals: 09/30/24 0824 BP: 129/82 Pulse: 87 Resp: 16 Temp: 36.4 C (97.5 F) TempSrc: Tympanic SpO2: 94% Weight: 96.5 kg (212 lb 11.2 oz) Wt Readings from Last 5 Encounters: 09/30/24 96.5 kg (212 lb 11.2 oz) 09/14/24 96.2 kg (212 lb) 09/08/24 94 kg (207 lb 3.2 oz) 08/18/24 94.2 kg (207 lb 9.6 oz) 07/28/24 93.5 kg (206 lb 1.6 oz) PHYSICAL EXAM: ECOG: Performance Status 1 = 80-90% Symptoms but nearly ambulatory General Appearance: No acute distress HEENT: Normal - No oral or pharyngeal masses, ulceration or thrush noted Lymph Nodes: Normal - No palpable lymph nodes in the neck or supraclavicular areas Lungs/Thorax: Normal - Clear to auscultation Heart: Normal - Regular rate and rhythm, normal S1, S2, no appreciable murmurs Pulses/Extremities: Normal - 2+ throughout and symmetrical, no edema Neurologic: Normal - Grossly intact LABS: Results for orders placed or performed in visit on 09/30/24 COMPREHENSIVE METABOLIC PANEL Result Value Ref Range BUN 18 6 - 20 mg/dL CREATININE 0.7 0.5 - 1.0 mg/dL EGFR >90 >=60 mL/min SODIUM 140 135 - 146 mmol/L POTASSIUM 4.2 3.5 - 5.1 mmol/L CHLORIDE 105 98 - 107 mmol/L CO2 23 22 - 32 mmol/L ANION GAP 12 7 - 15 mmol/L GLUCOSE 172 (H) 70 - 120 mg/dL Albumin 4.6 3.8 - 5.0 g/dL AST 25 10 - 35 U/L Alkaline Phosphatase 128 35 - 130 U/L Bilirubin, Total 0.4 <=1.2 mg/dL CALCIUM 9.5 8.4 - 10.2 mg/dL Protein 7.2 6.0 - 8.3 g/dL ALT 57 (H) 10 - 35 U/L CBC Result Value Ref Range WBC 8.23 4.00 - 10.80 K/uL RBC 3.72 3.85 - 5.15 M/uL HGB 12.3 12.0 - 15.3 g/dL HCT 36.7 36.0 - 45.2 % MCV 98.7 81.5 - 97.5 fL MCH 33.1 27.0 - 34.0 pg MCHC 33.5 32.0 - 36.0 g/dL RDW 16.5 11.5 - 15.5 % PLT 149 140 - 400 K/uL MPV 9.3 6.6 - 11.1 fL DIFFERENTIAL, AUTOMATED Result Value Ref Range WBC 8.23 4.00 - 10.80 K/uL Neutrophils % 90.6 (H) 40.0 - 75.0 % Lymphocytes % 8.3 (L) 18.0 - 42.0 % Monocytes % 1.0 1.0 - 11.0 % Eosinophils % 0.0 0.0 - 6.0 % Basophils % 0.1 0.0 - 2.0 % Absolute Neutrophils 7.46 1.80 - 7.70 K/uL Absolute Lymphocytes 0.68 (L) 1.00 - 4.80 K/ul Absolute Monocytes 0.08 0.00 - 1.10 K/uL Absolute Eosinophils 0.00 0.00 - 0.70 K/uL Absolute Basophils 0.01 0.00 - 0.20 K/uL DIFFERENTIAL, TECHNOLOGIST REVIEW Result Value Ref Range nRBCs IMPRESSION/PLAN: Left breast invasive ductal carcinoma, grade 3 TNBC Prevention of chemotherapy induced neutropenia Completed first stage of neoadjuvant chemotherapy with Keytruda, Carbo, Taxol every 21 days on 09/08/24. Presents today for consideration of C5D1 of treatment which is first cycle of Pembrolizumab + Doxorubicin + Cyclophosphamide q21 Days with plan for 4 cycles. Lab results reviewed: unremarkable Ok for treatment today as scheduled. Will receive Pegfilgrastim support D2 for prevention of chemotherapy induced neutropenia Patient planning for left mastectomy and SLNB. Plastic surgery referral pending. Will need postmastectomy XRT. Genetic testing negative. RTC in three weeks with provider for chemo return SENDY Hammond * Gloria Agosto LPN - 09/30/2024 8:25 AM EDT Patient identifed by name and birthdate Do you have any concerns about pain management for today's visit? No Living Will or Advance Directive for Health Care as noted on the problem list. [facility] is a way you can talk to your provider on line through e-mail. Would you like to sign up? I can activate it for you? ALREADY ACTIVE Filed Vitals: 09/30/24 0824 BP: 129/82 Pulse: 87 Resp: 16 Temp: 36.4 C (97.5 F) TempSrc: Tympanic SpO2: 94% Weight: 96.5 kg (212 lb 11.2 oz) Patient was instructed to not get up on the exam table/exam chair until directed and assisted by their provider; patient is to remain seated in the chair/ wheelchair/ exam table/ exam chair for fall prevention and safety reasons. Patient is aware to have assistance to step down off exam table/exam chair with personnel. Patient voiced full comprehension of instructions. documented in this encounter Plan of Treatment Upcoming Encounters Date Type Department Care Team (Late st Contact Info) Description 10/18/2024 9:00 AM EDT [facility] [address] [place] [address] Pratik Quinn MD [address] [place] [address] 10/21/2024 9:00 AM EDT Laboratory Laboratory [facility] [address] [facility] [place] [phone] [place] [address] [address] [facility] [place] [address] 10/21/2024 9:30 AM EDT Office Visit Hematology/Oncology [facility] Rayna [place] [address] [place] [phone] Ama Barksdale CRNP [address] [facility] [place] [address] 10/21/2024 10:00 AM EDT [facility] [address] Rayna, Chair 7 Hem Onc Scene 200 [facility], [place] [address] Scheduled Procedures Name Priority Associated Diagnoses Date/Ti me COLONOSCOPY FLEXIBLE PROXIMAL DIAGNOSTIC Recall Screen for colon cancer Health Maintenance Due Date Last Done Comments Hepatitis B Vaccine (1 of 3 - 19+ 3-dose series) 1993 Cologuard 11/06/2019 Fecal Occult Blood Test 11/06/2019 Sigmoidoscopy 11/06/2019 COVID-19 Vaccine ( season) 2024 Influenza Vaccine (FLU shot) (#1) 2024 Lipid Panel 08/26/2024 08/26/2019 Mammogram 03/18/2025 03/18/2024, 02/19, 01/16/2024, Additional history exists Depression Monitoring 05/17/2025 05/17/2024 Pap Smear 06/04/2026 06/04/2023, 07/23, 12/21/2015, Additional history exists Diabetes Screening 10/01/2027 09/30/2024, 0 09/08/2024, 08/18/2024, Additional history exists Cervical Cancer Screening 06/04/2028 HPV/Co-Test 06/04/2028 06/04/2023 DTap/Tdap Vaccines (4 - Td or Tdap) 03/14/2032 03/14/2022, 06/03/2017, 07/24/2007 Colonoscopy 04/11/2033 04/11/2023, 04/11/2023 Colorectal Cancer Screening 04/11/2033 HPV (Gardasil) Vaccine Aged Out No lo nger eligible based on patient's age to complete this topic MENINGOCOCCAL (MENACTRA/MENVEO) Aged Out No longer eligible based on patient's age to complete this topic Meningitis B Vaccine (Bexsero/Trumemba) Aged Out No longer eligible based on patient's age to complete this topic Pneumococcal Vaccine: Pediatrics (0 to 5 Years) and At-Risk Patients (6 to 18 Years and 19+ Years) Aged Out No longer eligib le based on patient's age to complete this topic documented as of this encounter Medical Devices Implanted Type Area Warehouse Clerk Device Identifier Shelf Expiration Date Model / Serial / Lot Mediport Power Mri 8fr [id number] - [id number] Implanted:Qty : 1 on 06/23/2024 by Rubén Hou MD at OR [facility] Right: Chest CR BARD : PERIPHERAL VASCULAR 06/19/2025 [id number] / / [id number] Port Implant W8f Poly Cath - [id number] Implanted:Qty : 1 on 06/23/2024 by Rubén Hou MD at OR [facility] CR BARD : PERIPHERAL VASCULAR [id number] 06/19/2025 [id number] / / [id number] documented as of this encounter Visit Diagnoses Diagnosis Malignant neoplasm of overlapping sites of left breast in female, estrogen receptor negative (HCC)- Primary Prevention of chemotherapy-induced neutropenia documented in this encounter Care Teams Assistant Spa Manager Relationship Specialty Start Date End Date Gordon October EUGENIA [place] [address] [place] [address] PCP - General Physician Superintendent Operations Division 05/10/24 documented as of this encounter
--- OUTSIDE RECORDS SUMMARY | 2024-10-09 06:29 | External Medical Summary ---
Author Name Unknown Address Unknown Organization K09:[facility] [place] [address] Laboratory Report Ordering Provider Test Date Status JOCY DILL 10/08/2024 15:03:17 Final Observation Date Value Abnormality Reference (Units ) Status WBC, Total 10/08/2024 15:03:17 0.50 Below lower panic limits 4.00-10.80 (K/uL) Final Results rechecked. RBC 10/08/2024 15:03:17 2.67 3.85-5.15 (M/uL) Final Hemoglobin 10/08/2024 15:03:17 9.2 Below low normal 12 .0-15.3 (g/dL) Final Results rechecked. HCT 10/08/2024 15:03:17 26.4 Below low normal 36. 0-45.2 (%) Final Results rechecked. MCV 10/08/2024 15:03:17 98.9 81.5-97.5 (fL) Final MCH 10/08/2024 15:03:17 34.5 27.0-34.0 (pg) Final MCHC 10/08/2024 15:03:17 34.8 32.0-36.0 (g/dL) Final RDW 10/08/2024 15:03:17 13.4 11.5-15.5 (%) Final Platelets 10/08/2024 15:03:17 39 Below low normal 140 -400 (K/uL) Final Results rechecked. MPV 10/08/2024 15:03:17 10.3 6.6-11.1 ( fL) Final Performing Location [facility] [place] [address]
--- OUTSIDE RECORDS SUMMARY | 2024-10-09 06:30 | External Medical Summary | Summary of Care ---
Author Name Unknown Organization [facility] Address [address] [facility] [address] Phone [phone] Care Team Providers Care Firewood Cutter Name Role Phone Jewell Leyva Faye BELLO Primary Care Provider Reason for Visit * Reason Comments Chemotherapy C4/D1 - Taxol, Carbo * Episode Based Medications (Routine) - Authorized Specialty Diagnoses / Procedures Referred By Contyesica t Referred To Contact Diagnoses Malignant neoplasm of overlapping sites of left breast in female, estrogen receptor negative (HCC) Encounter for antineoplastic chemotherapy Prevention of chemotherapy-induced neutropenia Procedures CT DOXORUBIC HCL [address] CARBOPLATIN INJECTION CT FOSAPREPITANT INJECTION CT INJ PEMBROLIZUMAB CT INJECTION, FULPHILA CT INJ, FILGRASTIM G-CSF 1MCG CT PACLITAXEL INJECTION CT INJ CYCLOPHOSPHAMD AUROMEDIC Celia Beard MD Hematology/Oncology Treatment, [address] [place] [address] Phone: tel: fax: Referral ID Status Reason Start Date Expiration Date V isits Requested Visits Authorized [id number] Authorized 07/28/2024 12/18/2024 [id number] Encounter Details Date Type Department Care Team (Latest Contact Info) Description 09/08/2024 10:45 AM EST Hem/Onc Treatment Hematology/Oncolog y Treatment, [address] [place] [address] Rayna, Chair 2 Hem Onc [address] [address] Malignant neoplasm of overlapping sites of left breast in female, estrogen receptor negative (HCC)*; Encounter for antineoplastic chemotherapy; Prevention of chemotherapy-induced neutropenia Allergies Active Allergy Reactions Criticality Noted Date Comments Vancomycin Low 03/16/2022 documented as of this encounter (statuses as of 09/28/2024) Medications MULTIVITAMINS PO TABS one a day Active ALPRAZolam 0.25 MG Oral Tablet (xaNAX) Take by mouth 1 Tablet in the morning AND 1 Tablet at noon AND 1 Tablet before bedtime. As needed for anxiety. 30 Tablet 1 11/14/19 Active Additional Information Patient not taking.Reported on 06/23/2024 Nitroglycerin 0.2% rectal ointment Administer into the rectum 2 times a day. 20 g 3 11/06/19 24 Active Additional Information Patient not taking.Reported on 06/23/2024 diphenhydrAMINE HCl 25 MG Oral Tablet (Benadryl)Indicati ons:Malignant neoplasm of overlapping sites of left breast in female, estrogen receptor negative (HCC),Encounter for antineoplastic chemotherapy,Preve ntion of chemotherapy-induc ed neutropenia Take by mouth 1 Capsule 12 hours prior to paclitaxel infusion. 12 Tablet 06/15/20 24 Active Additional Information Patient not taking.Reported on 06/23/2024 Famotidine 20 MG Oral Tablet (Pepcid)Indication s:Malignant neoplasm of overlapping sites of left breast in female, estrogen receptor negative (HCC),Encounter for antineoplastic chemotherapy,Preve ntion of chemotherapy-induc ed neutropenia Take by mouth 1 Tablet 12 hours prior to paclitaxel infusion. 12 Tablet 06/15/20 24 Active Additional Information Patient not taking.Reported on 06/23/2024 Prochlorperazine Maleate 10 MG Oral Tablet (Compazine)Indicat ions:Malignant neoplasm of overlapping sites of left breast in female, estrogen receptor negative (HCC),Encounter for antineoplastic chemotherapy,Preve ntion of chemotherapy-induc ed neutropenia Take 1 Tablet by mouth every 6 hours as needed for Nausea. 30 Tablet 5 06/15/20 24 Active Additional Information Patient not taking.Reported on 06/23/2024 Lidocaine-Prilocai ne 2.5-2.5 % External Cream (Emla)Indications: Malignant neoplasm of overlapping sites of left breast in female, estrogen receptor negative (HCC) APPLY TO SKIN OVER MEDIPORT & COVER 1HR PRIOR TO ACCESSING. 30 g 1 06/15/20 Active Additional Information Patient not taking.Reported on 06/23/2024 Loratadine 10 MG Oral Tablet (Claritin)Indicati ons:Malignant neoplasm of overlapping sites of left breast in female, estrogen receptor negative (HCC) Take 1 tablet by mouth daily x5 days starting the day of chemotherapy 40 Tablet 06/15/20 Active Additional Information Patient not taking.Reported on 06/23/2024 Ondansetron HCl 8 MG Oral Tablet (Zofran)Indication s:Malignant neoplasm of overlapping sites of left breast in female, estrogen receptor negative (HCC) Take 1 Tablet by mouth every 8 hours as needed for Nausea. 30 Tablet 3 06/15/20 Active Additional Information Patient not taking.Reported on 06/23/2024 dexAMETHasone 4 MG Oral Tablet (Decadron)Indicati ons:Malignant neoplasm of overlapping sites of left breast in female, estrogen receptor negative (HCC) Take 2 tablets by mouth for 2 days prior to chemotherapy ( as well as 2 tablets by mouth for 3 days after chemotherapy). 16 Tablet 06/29/20 Active Amoxicillin-Pot Clavulanate 875-125 MG Oral Tablet (Augmentin)Indicat ions:Malignant neoplasm of overlapping sites of left breast in female, estrogen receptor negative (HCC) Take 1 Tablet by mouth in the morning and 1 Tablet before bedtime. 28 Tablet 06/28/20 Active oxyCODONE-Acetamin ophen 5-325 MG Oral Tablet (Percocet)Indicati ons:Malignant neoplasm of overlapping sites of left breast in female, estrogen receptor negative (HCC) Take 2 Tablets by mouth every 6 hours as needed for Pain, Mild, Pain, Moderate or Pain, Severe. 90 Tablet 06/28/20 Active PARoxetine HCl 40 MG Oral Tablet (pAXil) TAKE 1 TABLET BY MOUTH EVERY MORNING 90 Tablet 1 07/13/20 Active documented as of this encounter (statuses as of 09/28/2024) Active Problems Problem Noted Date Diagnosed Date Dehydration 07/05/2024 Malignant neoplasm of overla pping sites of left breast in female, estrogen receptor negative 06/14/2024 Encounter for antineoplastic chemotherapy 2023 Prevention of chemotherapy-induced neutropenia 1 08/14/2023 Food insecurity 05/31/2024 Overview: Per [facility] Protocol ASCUS with positive high risk HPV cervical 06/04 Major depressive disorder, r ecurrent severe without psychotic features 04/10/2023 Major depressive disorder, single episode, moder ate 06/07/2021 Encounter for other general counseling or advice on contraception 04/27/2010 Overview (04/20/2024): ICD-10 update of inactive term documented as of this encounter (statuses as of 09/28/2024) Resolved Problems Problem Noted Date Diagnosed Date Resolved Date Current mild episode of chente r depressive disorder without prior episode 08/19/2018 4 ABN PAP SMEAR-CERVIX 999 Encounter for supervision of other normal 05/28/2016 Overview (11/21/2015): ICD-10 update of inactive term documented as of this encounter (statuses as of 09/28/2024) Immunizations Name Administration Dates Next Due TD [...] on file documented as of this encounter Nursing Notes * Angelina Berry RN - 09/08/2024 4:32 PM EST Goals: Patient will remain free from injury. Possible barriers to meeting goals: ambulating with IV pole Stability of the patient: Moderately stable - low risk of patient condition declining or worsening Summary regarding today's goals: Met: pt remained free of harm today Patient tolerated treatment well without any acute issues or problems. Patient left facility in stable condition and denied any further needs. * Angelina Berry RN - 09/08/2024 4:30 PM EST Chair 10. Port accessed. Without difficulty. Patient saw SENDY Hopson today - see OV note for details. Chemotherapy/Immunotherapy agents: CARBOPLATIN, KEYTRUDA, and TAXOL Consent for chemotherapy drug treatment complete, dated, and signed? yes, date - 06/14/2024 Treatment lab parameters met? Yes Has treatment weight changed > than 10%? No Treatment preauthorized? Yes VITALS There were no vitals filed for this visit. BP Readings from Last 2 Encounters: 09/08/24 143/84 08/18/24 125/73 Pulse Readings from Last 2 Encounters: 09/08/24 89 08/18/24 106 Resp Readings from Last 2 Encounters: 09/08/24 18 07/05/24 18 SpO2 Readings from Last 2 Encounters: 09/08/24 95% 08/18/24 94% Temp Readings from Last 2 Encounters: 09/08/24 36.6 C (97.9 F) (Tympanic) 08/18/24 36.8 C (98.3 F) (Tympanic) Urine protein: N/A Patient education completed for treatment? Yes Blood transfusion consent signed and complete? NA Return appointment scheduled? Yes Patient had provider visit today? Yes - Ok to release order and treat per provider Functional Status: Functional status at today's visit: Fully active, able to carry on all pre-disease performance without restriction The drug name, dose, infusion volume, rate and route of administration, expiration date and time, appearance and physical integrity of the drug and rate set on the pump and sequencing of drug administration (as applicable) were verified by me and second sign-in RN. Patient was assessed for symptoms or adverse side effects during treatment. Patient Education: Patient instructed on use of heat and massage functions where applicable. Patient shown how to operate the heat function of the chair and to alert nursing staff if the chair feels too warm. Patient instructed on the risk of potential pitts while using the heat function. Safety and Risk for Injury Patient will remain free from injury. Ensure appropriate safety devices are available. Provide and maintain safe environment. documented in this encounter Plan of Treatment Upcoming Encounters Date Type Department Care Team (Late st Contact Info) Description 09/30/2024 7:30 AM EDT Laboratory Laboratory [facility] [address] [place] [phone] [place], Lab [facility] [address] [facility] [place] [address] 09/30/2024 8:30 AM EDT Office Visit Hematology/Oncology [facility] [address] [facility] [place] [phone] Ama Barksdale CRNP [address] [place] [address] 09/30/2024 9:00 AM EDT Hem/Onc Treatment Hematology/Oncology Treatment, [place] [address] [facility] [place] [phone] Rayna, Chair 2 Hem Onc [facility] [address] [facility] [place] [address] 10/18/2024 9:00 AM EDT [facility] [address] [place] [address] Pratik Quinn MD [address] [place], [place] [id number] Scheduled Procedures Name Priority Associated Diagnoses Date/Ti [...] 07/23, 12/21/2015, Additional history exists Diabetes Screening 09/08/2027 09/08/2024, 0 08/18/2024, 07/28/2024, Additional history exists Cervical Cancer Screening 06/04/2028 [...] this encounter Medical Devices Implanted Type Area Installation Manager Device Identifier Shelf Expiration Date Model / Serial / Lot Mediport Power Mri 8fr [id number] - [id number] Implanted:Qty : 1 on 06/23/2024 by Rubén Hou MD at OR [facility] Right: Chest CR BARD : PERIPHERAL VASCULAR 06/19/2025 [id number] / / [id number] Port Implant W8f Poly Cath - [id number] Implanted:Qty : 1 on 06/23/2024 by Rubén Hou MD at OR [facility] CR BARD : PERIPHERAL VASCULAR [id number] 06/19/2025 [id number] / / [id number] documented as of this encounter Visit Diagnoses Diagnosis Malignant neoplasm of overlapping sites of left breast in female, estrogen receptor negative (HCC)- Primary Encounter for antineoplastic chemotherapy Prevention of chemotherapy-induced neutropenia documented in this encounter Administered Medications Inactive Administered Medications - up to 3 most recent administrations Medication Order MAR Action Action Date Dose Rate Site CARBOplatin (Paraplatin) 693 mg in D5W 250 mL infusion 693 mg (Target AUC = 5), IV Piggyback, at 510 mL/hr Administer over 30 Minutes, PROTECT FROM LIGHT, ONCE, 1 dose, On Fri09/08/24 at 1400Indications:Malignant neoplasm of overlapping sites of left breast in female, estrogen receptor negative (HCC),Encounter for antineoplastic chemotherapy,Prevention of chemotherapy-induced neutropenia Start Infusion 09/08/2024 4:00 PM EST 693 mg 510 mL/hr diphenhydrAMINE (Benadryl) cap 25 mg 25 mg, Oral, ONCE, On Fri09/08/24 at 1200, For 1 doseIndications:Malignant neoplasm of overlapping sites of left breast in female, estrogen receptor negative (HCC),Encounter for antineoplastic chemotherapy,Prevention of chemotherapy-induced neutropenia Given 09/08/2024 11:15 AM EST 25 mg Famotidine (Pepcid) tab 20 mg 20 mg, Oral, ONCE, On Fri09/08/24 at 1200, For 1 doseIndications:Malignant neoplasm of overlapping sites of left breast in female, estrogen receptor negative (HCC),Encounter for antineoplastic chemotherapy,Prevention of chemotherapy-induced neutropenia Given 09/08/2024 11:15 AM EST 20 mg Fosaprepitant Dimeglumine (Emend) 150 mg, ondansetron (Zofran) 16 mg, dexamethasone sodium phosphate 12 mg in NSS 250 mL Infusion 150 mg, IV Piggyback, ONCE, 1 dose, On Fri09/08/24 at 1200, Administer over 30 Minutes, Infuse over 30 minutes. Give 30 minutes prior to chemotherapy.Indications:Ma lignant neoplasm of overlapping sites of left breast in female, estrogen receptor negative (HCC),Encounter for antineoplastic chemotherapy,Prevention of chemotherapy-induced neutropenia Start Infusion 09/08/2024 11:18 AM EST 150 mg 538.4 mL/hr NSS infusion Intravenous, at 50 mL/hr, PRN, Starting on Fri09/08/24 at 1200, Until Fri09/08/24 at 2046, Maintenance lineIndications:Malignant neoplasm of overlapping sites of left breast in female, estrogen receptor negative (HCC),Encounter for antineoplastic chemotherapy,Prevention of chemotherapy-induced neutropenia Start Infusion 09/08/2024 11:17 AM EST 50 mL/hr PACLitaxel (Taxol) 368 mg in NSS 500 mL infusion 368 mg (rounded from 367.5 mg = 175 mg/m2 2.1 m2 Treatment Plan BSA from Recorded weight), IV Piggyback, ONCE, 1 dose, On Fri09/08/24 at 1300, Administer over 3 Hours, Administer through 0.22 micron low protein binding filter!Indications:Malignan t neoplasm of overlapping sites of left breast in female, estrogen receptor negative (HCC),Encounter for antineoplastic chemotherapy,Prevention of chemotherapy-induced neutropenia Start Infusion 09/08/2024 12:56 PM EST 368 mg 170 mL/hr Pembrolizumab (Keytruda) 200 mg in NSS 100 mL infusion 200 mg, IV Piggyback, ONCE, 1 dose, On Fri09/08/24 at 1230, Administer over 30 Minutes, Infuse through 0.2 micron filter.Indications:Malignan t neoplasm of overlapping sites of left breast in female, estrogen receptor negative (HCC),Encounter for antineoplastic chemotherapy,Prevention of chemotherapy-induced neutropenia Start Infusion 09/08/2024 12:06 PM EST 200 mg 226 mL/hr sodium chloride 0.9 % flush/inj 20 mL 20 mL, IV Push, PRN IV Flush and Lock, Starting on Fri09/08/24 at 1054, Until Fri09/08/24 at 2046, Do not flush if lock, PICC, or central line not in place; IV infusing or unable to flush. For midlines and central lines. For IV Flush and Lock, IVAD is flushed with a total of 20 mL Normal Saline, 10 mL of Normal Saline Flush with 10 mL of Normal Saline acting as IV LOCK.Indications:Malignant neoplasm of overlapping sites of left breast in female, estrogen receptor negative (HCC),Encounter for antineoplastic chemotherapy,Prevention of chemotherapy-induced neutropenia Given 09/08/2024 4:35 PM EST 20 mL documented in this encounter Care Teams Firewood Cutter Relationship Specialty Start Date End Date Jewell Leyva, EUGENIA [address] [place] [address] PCP - General Physician Broaching Machine Set Up Operator 05/10/24 documented as of this encounter
--- OUTSIDE RECORDS SUMMARY | 2024-10-09 06:30 | External Medical Summary | Summary of Care ---
Author Name Unknown Organization [facility] Address [address] [place] [facility] [place] [address] Phone [phone] Care Team Providers Care Safety Admin Assistant Name Role Phone Jewell Leyva Faye BELLO Primary Care Provider [phone] Reason for Visit * Reason Comments Chemotherapy C4/D1 - Taxol, Carbo * Episode Based Medications (Routine) - Pending Review Specialty Diagnoses / Procedures Referred By Jacobo t Referred To Contact Diagnoses Malignant neoplasm of overlapping sites of left breast in female, estrogen receptor negative (HCC) Encounter for antineoplastic chemotherapy Prevention of chemotherapy-induced neutropenia Procedures NH DOXORUBIC HCL 10 MG VL CHEMO NH CARBOPLATIN INJECTION NH FOSAPREPITANT INJECTION NH INJ PEMBROLIZUMAB NH INJECTION, FULPHILA NH INJ, FILGRASTIM G-CSF 1MCG NH PACLITAXEL INJECTION NH INJ CYCLOPHOSPHAMD AUROMEDIC Celia Beard MD Hematology/Oncology Treatment, [address] [address] Phone: tel: fax: Referral ID Status Reason Start Date Expiration Date V isits Requested Visits Authorized [id number] Pending Review 07/28/2024 12/18/2024 [id number] Encounter Details Date Type Department Care Team (Latest Contact Info) Description 09/08/2024 10:45 AM EST Hem/Onc Treatment Hematology/Oncolog y Treatment, [address] [phone] Rayna, Chair 2 Hem Onc [place] [address] [place] [address] Malignant neoplasm of overlapping sites of left [...] needed for anxiety. 30 Tablet 1 11/14/19 22 Active Additional Information Patient not taking.Reported on [...] as needed for Nausea. 30 Tablet 5 11/26/20 24 Active Additional Information Patient not taking.Reported [...] before bedtime. 28 Tablet 06/28/20 24 Active oxyCODONE-Acetamin ophen 5-325 MG Oral Tablet [...] 05/17/2024 Does the household have a re lar source of income? (Household - for ages [...] Description 09/30/2024 7:30 AM EDT Laboratory Laboratory [facility] [address] [place] [phone] Rayna, Lab [facility] 200 [facility] [place] [address] 09/30/2024 8:30 AM EDT Office Visit Hematology/Oncology [facility] [place] [address] [place] [phone] Ama Barksdale CRNP [address] [place] [address] 09/30/2024 9:00 AM EDT Hem/Onc Treatment Hematology/Oncology Treatment, [place] [address] [place] [phone] Rayna, Chair 2 Hem Onc [facility] 200 [facility] [place] [address] 10/18/2024 9:00 AM EDT [facility] [address] [place] [address] Pratik Quinn MD [address] [place], [place] [id number] Scheduled Procedures Name Priority Associated Diagnoses Date/Ti [...] this encounter Medical Devices Implanted Type Area Lease Operator Device Identifier Shelf Expiration Date Model / Serial / Lot Mediport Power Mri 8fr [id number] - [id number] Implanted:Qty : 1 on 06/23/2024 by Rubén Hou MD at OR [facility] Right: Chest CR BARD : PERIPHERAL VASCULAR 06/19/2025 [id number] / / [id number] Port Implant W8f Poly Cath - [id number] Implanted:Qty : 1 on 06/23/2024 by Rubén Hou MD at OR [facility] CR BARD : PERIPHERAL VASCULAR [id number] 06/19/2025 [id number] / / [id number] documented as of this encounter Visit Diagnoses [...] mL documented in this encounter Care Teams Safety Admin Assistant Relationship Specialty Start Date End Date October EUGENIA [place] [address] [place] [address] PCP - General Physician Pathology Assistant 05/10/24 documented as of this encounter
--- OUTSIDE RECORDS SUMMARY | 2024-10-09 06:30 | External Medical Summary | Summary of Care ---
Author Name Unknown Organization [facility] Address [address] [place] [address] Phone [phone] Care Team Providers Care Prosthetist Name Role Phone Jewell Leyva A EUGENIA Primary Care Provider [phone] Reason for Visit * Reason Comments Chemotherapy Day 1, cycle 5 keytr uda, adriamycin, cytoxan * Episode Based Medications (Routine) - Authorized Specialty Diagnoses / Procedures Referred By Jacobo lo Referred To Contact Diagnoses Malignant neoplasm of overlapping sites of left breast in female, estrogen receptor negative (HCC) Encounter for antineoplastic chemotherapy Prevention of chemotherapy-induced neutropenia Procedures MS DOXORUBIC HCL 10 MG VL CHEMO MS CARBOPLATIN INJECTION MS FOSAPREPITANT INJECTION MS INJ PEMBROLIZUMAB MS INJECTION, FULPHILA MS INJ, FILGRASTIM G-CSF 1MCG MS PACLITAXEL INJECTION MS INJ CYCLOPHOSPHAMD AUROMEDCelia Munroe MD Hematology/Oncology Treatment, [address] [address] Phone: tel: fax: Referral ID Status Reason Start Date Expiration Date V isits Requested Visits Authorized [id number] Authorized 07/28/2024 12/18/2024 999 [id number] Encounter Details Date Type Department Care Team (Latest Contact Info) Description 09/30/2024 9:00 AM EDT Hem/Onc Treatment Hematology/Oncolog y Treatment, [address] [address] Park, Chair 2 Hem Onc [address] [place] [address] Malignant neoplasm of overlapping sites of left breast in female, estrogen receptor negative (HCC)*; Encounter for antineoplastic chemotherapy; Prevention of chemotherapy-induced neutropenia Allergies Active Allergy Reactions Criticality Noted Date Comments Vancomycin Low 03/16/2022 documented as of this encounter (statuses as of 09/30/2024) Medications MULTIVITAMINS PO TABS one a day [...] as of this encounter (statuses as of 09/30/2024) Active Problems Problem Noted Date Diagnosed Date [...] as of this encounter (statuses as of 09/30/2024) Resolved Problems Problem Noted Date Diagnosed Date Resolved Date Current mild episode of chente r depressive disorder without prior episode 08/19/2018 4 ABN PAP SMEAR-CERVIX 999 Encounter for supervision of other normal 05/28/2016 Overview (11/21/2015): ICD-10 update of inactive term documented as of this encounter (statuses as of 09/30/2024) Immunizations Name Administration Dates Next Due TD [...] as of this encounter Nursing Notes * Felecia Chou RN - 09/30/2024 2:42 PM EDT Infusion complete. Patient tolerated well. No complaints. Port needle flushed with 10 ml NSS, blood return noted, and port locked with additional 10 ml NSS. Cristina needle removed, intact, gauze dressing applied. Goals: Patient will remain free from injury. Possible barriers to meeting goals: ambulating with IV pole Stability of the patient: Moderately stable - low risk of patient condition declining or worsening Summary regarding today's goals: Met: Patient remained free from harm/injury during treatment. Patient left facility in stable condition. * Felecia Chou RN - 09/30/2024 9:56 AM EDT Chair 1, patient here for treatment following provider visit with Ama. VAD accessed without difficulty, + blood return noted, flushed with 10 ml NSS and dressing applied. Chemotherapy/Immunotherapy agents: CYTOXAN, DOXORUBICIN, and KEYTRUDA Consent for chemotherapy drug treatment complete, dated, and signed? yes, date - 06/14/24 Treatment lab parameters met? Yes Has treatment weight changed > than 10%? No Treatment preauthorized? Yes VITALS Filed Vitals: BP Readings from Last 2 Encounters: 09/30/24 129/82 09/14/24 123/62 Pulse Readings from Last 2 Encounters: 09/30/24 87 09/14/24 103 Resp Readings from Last 2 Encounters: 09/30/24 16 09/08/24 18 SpO2 Readings from Last 2 Encounters: 09/30/24 94% 09/08/24 95% Temp Readings from Last 2 Encounters: 09/30/24 36.4 C (97.5 F) (Tympanic) 09/08/24 36.6 C (97.9 F) (Tympanic) Urine protein: N/A Patient education [...] Patient instructed on the risk of potential pitst while using the heat function. Safety and Risk for Injury Patient will remain free from injury. Ensure appropriate safety devices are available. Provide and maintain safe environment. documented in this encounter Plan of Treatment Upcoming Encounters Date Type Department Care Team (Late st Contact Info) Description 10/01/2024 11:30 AM EDT Immunization/Injection Hematology/Oncology Treatment, [place] [address] [place] [phone] Park, Chair 10 Hem Onc [facility] [address] [facility] [place] [address] 10/18/2024 9:00 AM EDT Telemedicine Plastic Surgery, [place] [address] [place] [address] Pratik Quinn MD [address] [place] [address] 10/21/2024 9:00 AM EDT Laboratory Laboratory [facility] [place] [address] [facility] [place] [address] Park, Lab [facility] [address] [facility] [place] [address] 10/21/2024 9:30 AM EDT Office Visit Hematology/Oncology [facility] [place] [address] [facility] [place], [place] [address] Ama Barksdale CRNP [address] [place] [address] 10/21/2024 10:00 AM EDT Hem/Onc Treatment Hematology/Oncology Treatment, [place] [address] [facility] [address] [place] [address] aRyna, Chair 7 Hem Onc [facility] [address] [facility] [place] [address] Scheduled Procedures Name Priority Associated Diagnoses Date/Ti [...] this encounter Medical Devices Implanted Type Area Prescription Eyeglass Maker Device Identifier Shelf Expiration Date Model / Serial / Lot Mediport Power Mri 8fr [id number] - [id number] Implanted:Qty : 1 on 06/23/2024 by Rubén Hou MD at OR [facility] Right: Chest CR BARD : PERIPHERAL VASCULAR 06/19/2025 [id number] / / [id number] Port Implant W8f Poly Cath - [id number] Implanted:Qty : 1 on 06/23/2024 by Rubén Hou MD at [facility] CR BARD : PERIPHERAL VASCULAR [id number] 06/19/2025 [id number] / / [id number] documented as of this encounter Visit Diagnoses Diagnosis Malignant neoplasm of overlapping sites of left breast in female, estrogen receptor negative (HCC)- Primary Encounter for antineoplastic chemotherapy Prevention of chemotherapy-induced neutropenia documented in this encounter Administered Medications Inactive Administered Medications - up to 3 most recent administrations Medication Order MAR Action Action Date Dose Rate Site cycloPHOSphamide (Cytoxan) 1,260 mg in NSS 500 mL infusion 1,260 mg (600 mg/m2 2.1 m2 Treatment Plan BSA from Recorded weight), IV Piggyback, ONCE, On Yudi 09/30/24 at 1145, For 1 dose, Cyclophosphamide doses over 1g should be in 500 mL.May extend infusion to 1 hour if not tolerated.Indications:Malig nant neoplasm of overlapping sites of left breast in female, estrogen receptor negative (HCC),Encounter for antineoplastic chemotherapy,Prevention of chemotherapy-induced neutropenia Start Infusion 09/30/2024 10:44 AM EDT 1,260 mg 1032.6 mL/hr DOXOrubicin (Adriamycin) inj 126 mg 126 mg (60 mg/m2 2.1 m2 Treatment Plan BSA from Recorded weight), IV Push, ONCE, On Yudi 09/30/24 at 1115, For 1 dose, Dispensed and administered in a syringe.Indications:Maligna nt neoplasm of overlapping sites of left breast in female, estrogen receptor negative (HCC),Encounter for antineoplastic chemotherapy,Prevention of chemotherapy-induced neutropenia Given 09/30/2024 10:37 AM EDT 63 mg Subsq SYR 09/30/2024 10:33 AM EDT 63 mg Fosaprepitant Dimeglumine (Emend) 150 mg, ondansetron (Zofran) 16 mg, dexamethasone sodium phosphate 12 mg in NSS 250 mL Infusion 150 mg, IV Piggyback, ONCE, 1 dose, On Yudi 09/30/24 at 1015, Administer over 30 Minutes, Infuse over 30 minutes. Give 30 minutes prior to chemotherapy.Indications:Lora gnant neoplasm of overlapping sites of left breast in female, estrogen receptor negative (HCC),Encounter for antineoplastic chemotherapy,Prevention of chemotherapy-induced neutropenia Start Infusion 09/30/2024 9:13 AM EDT 150 mg 538.4 mL/hr NSS infusion 1,000 mL, Intravenous, at 500 mL/hr, CONTINUOUS, Starting on Yudi 09/30/24 at 1015, Until Yudi 09/30/24 at 1214Indications:Malignant neoplasm of overlapping sites of left breast in female, estrogen receptor negative (HCC),Encounter for antineoplastic chemotherapy,Prevention of chemotherapy-induced neutropenia Start Infusion 09/30/2024 9:11 AM EDT 1,000 mL 500 mL/hr NSS infusion Intravenous, at 50 mL/hr, PRN, Starting on Yudi 09/30/24 at 1015, Until Yudi 09/30/24 at 1847, Maintenance lineIndications:Malignant neoplasm of overlapping sites of left breast in female, estrogen receptor negative (HCC),Encounter for antineoplastic chemotherapy,Prevention of chemotherapy-induced neutropenia Start Infusion 09/30/2024 9:08 AM EDT 50 mL/hr Pembrolizumab (Keytruda) 200 mg in NSS 100 mL infusion 200 mg, IV Piggyback, ONCE, 1 dose, On Yudi 09/30/24 at 1045, Administer over 30 Minutes, Infuse through 0.2 micron filter.Indications:Malignant neoplasm of overlapping sites of left breast in female, estrogen receptor negative (HCC),Encounter for antineoplastic chemotherapy,Prevention of chemotherapy-induced neutropenia Start Infusion 09/30/2024 9:54 AM EDT 200 mg 226 mL/hr sodium chloride 0.9 % flush/inj 20 mL 20 mL, IV Push, PRN IV Flush and Lock, Starting on Yudi 09/30/24 at 0901, Until Yudi 09/30/24 at 1847, Do not flush if lock, PICC, or [...] for antineoplastic chemotherapy,Prevention of chemotherapy-induced neutropenia Given 09/30/2024 11:22 AM EDT 20 mL documented in this encounter Care Teams Prosthetist Relationship Specialty Start Date End Date Gordon October EUGENIA Mckinney [address] [facility] [place] [address] PCP - General Physician Shear Scrapman 05/10/24 documented as of this encounter
--- OUTSIDE RECORDS SUMMARY | 2024-10-09 06:30 | External Medical Summary ---
Author Name Unknown Address Unknown Organization K09:[facility] [address] [place] [address] Laboratory Report Ordering Provider Test Date Status JOCY DILL 09/30/2024 07:27:45 Final Observation Date Value Abnormality Reference (Units ) Status SYNC LEUKOCYTES IN BLOOD BY AUTOMATED COUNT 09/30/2024 07:27:45 8.23 4.00-10.80 (K/uL) Final Segs 09/30/2024 07:27:45 90.6 Above high normal 40.0-75.0 (%) Final Lymphs % 09/30/2024 07:27:45 8.3 Below low normal 18.0-42.0 (%) Final Monos 09/30/2024 07:27:45 1.0 1.0-11.0 (%) Final Eosinophils 09/30/2024 07:27:45 0.0 0.0-6.0 (%) Final Basos 09/30/2024 07:27:45 0.1 0.0-2.0 (%) Final Absolute Segs 09/30/2024 07:27:45 7.46 1.80-7.70 (K/uL) Final Lymphs, absolute 09/30/2024 07:27:45 0.68 Below low normal 1.00-4.80 (K/ul) Final Monos, Abs 09/30/2024 07:27:45 0.08 0.00-1.10 (K/uL) Final Eos, Abs 09/30/2024 07:27:45 0.00 0.00-0.70 (K/uL) Final Basos, Abs 09/30/2024 07:27:45 0.01 0.00-0.20 (K/uL) Final Performing Location [facility] [address] [place] [address]
--- OUTSIDE RECORDS SUMMARY | 2024-10-09 06:30 | External Medical Summary | Summary of Care ---
Author Name Unknown Organization [facility] [address] [facility] [address] Phone [phone] Care Team Providers Care Printed Circuit Board Panels Developer Name Role Phone Jewell Leyva Faye BELLO Primary Care Provider [phone] Reason for Visit * Reason Comments Chemotherapy C4/D1 - Taxol, Carbo * Episode Based Medications (Routine) - Authorized Specialty Diagnoses / Procedures Referred By Contyesica t Referred To Contact Diagnoses Malignant neoplasm of overlapping sites of left breast in female, estrogen receptor negative (HCC) Encounter for antineoplastic chemotherapy Prevention of chemotherapy-induced neutropenia Procedures HI DOXORUBIC HCL 10 MG VL CHEMO HI CARBOPLATIN INJECTION HI FOSAPREPITANT INJECTION HI INJ PEMBROLIZUMAB HI INJECTION, FULPHILA HI INJ, FILGRASTIM G-CSF 1MCG HI PACLITAXEL INJECTION HI INJ CYCLOPHOSPHAMD AUROMEDIC Celia Beard MD Hematology/Oncology Treatment, [address] [place] [address] Phone: tel: fax: Referral ID Status Reason Start Date Expiration Date V isits Requested Visits Authorized [id number] Authorized 07/28/2024 12/18/2024 999 [id number] Encounter Details Date Type Department Care Team (Latest Contact Info) Description 09/08/2024 10:45 AM EST Hem/Onc Treatment Hematology/Oncolog y Treatment, [address] [place] [address] Rayna, Chair 2 [address] [address] Malignant neoplasm of overlapping sites of left [...] condition and denied any further needs. * Angelnia Berry RN - 09/08/2024 4:30 PM EST [...] Description 09/30/2024 7:30 AM EDT Laboratory Laboratory [facility] [address] [facility] [place] [phone] [place], Lab [facility] [address] [facility] [place] [address] 09/30/2024 8:30 AM EDT Office Visit Hematology/Oncology [facility] [address] [facility] [place] [phone] Ama Barksdale CRNP [address] [place] [address] 09/30/2024 9:00 AM EDT Hem/Onc Treatment Hematology/Oncology Treatment, [place] [address] [facility] [address] [place] [phone] Rayna, Chair 2 Hem Onc [facility] [address] [facility] [place] [address] 10/18/2024 9:00 AM EDT [facility] [address] [place] [address] Pratik Quinn MD [address] [place], [place] [id number] Scheduled Procedures Name Priority Associated Diagnoses Date/Ti [...] this encounter Medical Devices Implanted Type Area Motion Study Technician Device Identifier Shelf Expiration Date Model / Serial / Lot Mediport Power Mri 8fr [id number] - [id number] Implanted:Qty : 1 on 06/23/2024 by Rubén Hou MD at OR [facility] Right: Chest CR BARD : PERIPHERAL VASCULAR 06/19/2025 [id number] / / [id number] Port Implant W8f Poly Cath - [id number] Implanted:Qty : 1 on 06/23/2024 by Rubén Hou MD at OR [facility] CR BARD : PERIPHERAL VASCULAR [id number] 06/19/2025 [id number] / / [id number] documented as of this encounter Visit Diagnoses [...] mL documented in this encounter Care Teams Printed Circuit Board Panels Developer Relationship Specialty Start Date End Date Jewell Leyva, EUGENIA [address] [place] [address] PCP - General Physician Fur Cutting Machine Operator 05/10/24 documented as of this encounter
--- OUTSIDE RECORDS SUMMARY | 2024-10-09 06:30 | External Medical Summary | Summary of Care ---
Author Name Unknown Organization [facility] Address [address] [place] [facility] [place] [address] Phone [phone] Care Team Providers Care Thermoforming Machine Operator Name Role Phone Gordon October UEGENIA Primary Care Provider [phone] Reason for Visit * Reason Comments Outpatient Testing Encounter Details Date Type Department Care Team (Late st Contact Info) Description 09/30/2024 7:30 AM EDT Laboratory Laboratory [facility] [address] [place] [phone] [facility] [place] [address] [place] [address] Malignant neoplasm of overlapping sites of left breast in female, estrogen receptor negative (HCC) Allergies Active Allergy Reactions Criticality Noted Date [...] 2 times a day. 20 g 3 04/18/20 24 Active Additional Information Patient not taking.Reported on 06/23/2024 diphenhydrAMINE HCl 25 MG Oral Tablet (Benadryl)Indication s:Malignant neoplasm of overlapping sites of left breast in female, estrogen receptor negative (HCC),Encounter for antineoplastic chemotherapy,Prevent ion of chemotherapy-induced neutropenia Take by mouth 1 Capsule 12 hours prior to paclitaxel infusion. 12 Tablet 06/15/20 Active Additional Information Patient not taking.Reported on 06/23/2024 Famotidine 20 MG Oral Tablet (Pepcid)Indications: Malignant neoplasm of overlapping sites of left breast in female, estrogen receptor negative (HCC),Encounter for antineoplastic chemotherapy,Prevent ion of chemotherapy-induced neutropenia Take by mouth 1 Tablet 12 hours prior to paclitaxel infusion. 12 Tablet 06/15/20 Active Additional Information Patient not taking.Reported on 06/23/2024 Prochlorperazine Maleate 10 MG Oral Tablet (Compazine)Indicatio [...] on 06/23/2024 Loratadine 10 MG Oral Tablet (Claritin)Indication s:Malignant neoplasm of overlapping sites of left breast in female, estrogen receptor negative (HCC) Take 1 tablet by mouth daily x5 days starting the day of chemotherapy 40 Tablet 06/15/20 Active Additional Information Patient not taking.Reported on 06/23/2024 Ondansetron HCl 8 MG Oral Tablet (Zofran)Indications: Malignant neoplasm of overlapping sites of left breast in female, estrogen receptor negative (HCC) Take 1 Tablet by mouth every 8 hours as needed for Nausea. 30 Tablet 3 06/15/20 Active Additional Information Patient not taking.Reported on 06/23/2024 dexAMETHasone 4 MG Oral Tablet (Decadron)Indication s:Malignant [...] 1 08/14/2023 Food insecurity 05/31/2024 Overview: Per [facility] Protocol ASCUS with positive high risk [...] on file documented as of this encounter Plan of Treatment Upcoming Encounters Date Type Department Care Team (Latest Contact Info) Description 09/30/2024 8:30 AM EDT Office Visit Hematology/Oncology [facility] [place] [address] [facility] [address] Ama Barksdale CRNP [address] [place] [address] [place] [address] PENDING VISIT DRAFT 09/30/2024 9:00 AM EDT Hem/Onc Treatment Hematology/Oncology Treatment, [place] [address] [place] [address] Rayna, Chair 2 Hem Onc [place] [address] [place], [place] [address] Arrived 10/18/2024 9:00 AM EDT [facility] [address] [place] [address] Pratik Quinn MD [address] [place] [address] Pending Results Name Type Priority Associated Diagnoses Date /Time COMPREHENSIVE METABOLIC PANEL Lab STAT Malignant neoplasm of overlapping sites of left breast in female, estrogen receptor negative (HCC) 09/30/2024 7:27 AM EDT TSH WITH FREE T4 IF INDICATED Lab STAT Malignant neoplasm of overlapping sites of left breast in female, estrogen receptor negative (HCC) 09/30/2024 7:27 AM EDT Scheduled Procedures Name Priority Associated Diagnoses Date/Ti [...] this encounter Medical Devices Implanted Type Area Gasser Machine Operator Device Identifier Shelf Expiration Date Model / Serial / Lot Mediport Power Mri 8fr [id number] - [id number] Implanted:Qty : 1 on 06/23/2024 by Rubén Hou MD at OR [facility] Right: Chest CR BARD : PERIPHERAL VASCULAR 06/19/2025 [id number] / / [id number] Port Implant W8f Poly Cath - [id number] Implanted:Qty : 1 on 06/23/2024 by Rubén Hou MD at OR [facility] CR BARD : PERIPHERAL VASCULAR [id number] 06/19/2025 [id number] / / [id number] documented as of this encounter Procedures Procedure Name Priority Date/Time Associated Diagnosis Comments DIFFERENTIAL, AUTOMATED STAT 09/30/2024 7:27 AM EDT Malignant neoplasm of overlapping sites of left breast in female, estrogen receptor negative (HCC) CBC STAT 09/30/2024 7:27 AM EDT Malignant neoplasm of overlapping sites of left breast in female, estrogen receptor negative (HCC) CBC STAT 09/30/2024 7:27 AM EDT Malignant neoplasm of overlapping sites of left breast in female, estrogen receptor negative (HCC) DIFFERENTIAL, TECHNOLOGIST REVIEW Routine 09/30/2024 7:27 AM EDT Malignant neoplasm of overlapping sites of left breast in female, estrogen receptor negative (HCC) documented in this encounter Results * DIFFERENTIAL, TECHNOLOGIST REVIEW (09/30/2024 7:27 AM EDT) Pathologist [facility] nRBCs 09/30/2024 7:41 AM EDT [facility] 5602 Blood Venous blood specimen / Unknown Venipuncture / Unknown 09/30/2024 7:27 AM EDT 09/30/2024 7:27 AM EDT Darryn Fong MD LAB BLOOD ORDERABLES Final Res ult [facility] [address] [place], [place] [id number] * (ABNORMAL) DIFFERENTIAL, AUTOMATED (09/30/2024 7:27 AM EDT) [facility] WBC 8.23 4.00 - 10.80 K/uL 09/30/2024 7:41 AM EDT [facility] 56- Neutrophils % 90.6(H) 40.0 - 75.0 % 09/30/2024 7:41 AM EDT [facility] 56- Lymphocytes % 8.3(L) 18.0 - 42.0 % 09/30/2024 7:41 AM EDT [facility] 56-02 Monocytes % 1.0 1.0 - 11.0 % 09/30/2024 7:41 AM EDT [facility] 56-02 Eosinophils % 0.0 0.0 - 6.0 % 09/30/2024 7:41 AM EDT [facility] 56-02 Basophils % 0.1 0.0 - 2.0 % 09/30/2024 7:41 AM EDT [facility] 56-02 Absolute Neutrophils 7.46 1.80 - 7.70 K/uL 09/30/2024 7:41 AM EDT [facility] 56-02 Absolute Lymphocytes 0.68(L) 1.00 - 4.80 K/ul 09/30/2024 7:41 AM EDT [facility] 56-02 Absolute Monocytes 0.08 0.00 - 1.10 K/uL 09/30/2024 7:41 AM EDT [facility] 56-02 Absolute Eosinophils 0.00 0.00 - 0.70 K/uL 09/30/2024 7:41 AM EDT [facility] 56-02 Absolute Basophils 0.01 0.00 - 0.20 K/uL 09/30/2024 7:41 AM EDT [facility] 56 Blood Venous blood specimen / Unknown Venipuncture / Unknown 09/30/2024 7:27 AM EDT 09/30/2024 7:27 AM EDT us Darryn Fong MD LAB BLOOD ORDERABLES Final Res ult [facility] [address] [place], [place] [id number] * CBC (09/30/2024 7:27 AM EDT) WBC 8.23 4.00 - 10.80 K/uL 09/30/2024 7:41 AM EDT [facility] 56 RBC 3.72 3.85 - 5.15 M/uL 09/30/2024 7:41 AM EDT [facility] 56 HGB 12.3 12.0 - 15.3 g/dL 09/30/2024 7:41 AM EDT [facility] 56 HCT 36.7 36.0 - 45.2 % 09/30/2024 7:41 AM EDT [facility] 56 MCV 98.7 81.5 - 97.5 fL 09/30/2024 7:41 AM EDT [facility] 56 MCH 33.1 27.0 - 34.0 pg 09/30/2024 7:41 AM EDT [facility] 56 MCHC 33.5 32.0 - 36.0 g/dL 09/30/2024 7:41 AM EDT [facility] 56 RDW 16.5 11.5 - 15.5 % 09/30/2024 7:41 AM EDT [facility] 56 PLT 149 140 - 400 K/uL 09/30/2024 7:41 AM EDT [facility] 56 MPV 9.3 6.6 - 11.1 fL 09/30/2024 7:41 AM EDT [facility] 56 Blood Venous blood specimen / Unknown Venipuncture / Unknown 09/30/2024 7:27 AM EDT 09/30/2024 7:27 AM EDT us Darryn Fong MD LAB BLOOD ORDERABLES Final Res ult [facility] [place] 56-02 [address] [facility] [address] documented in this encounter Visit Diagnoses Diagnosis Malignant neoplasm of overlapping sites of left breast in female, estrogen receptor negative (HCC) documented in this encounter Care Teams Thermoforming Machine Operator Relationship Specialty Start Date End Date Jewell Leyva PA-C 200 [facility] [place] [address] PCP - General Physician Jewel Stripper 05/10/24 documented as of this encounter
--- OUTSIDE RECORDS SUMMARY | 2024-10-09 06:30 | External Medical Summary | Summary of Care ---
Author Name Unknown Organization [facility] Address [address] [place] [address] Phone [phone] Care Team Providers Care Biomass Technician Name Role Phone Jewell Leyva A EUGENIA Primary Care Provider [phone] Reason for Visit * Reason Comments Medication Administration Fulphila * Episode Based Medications (Routine) - Authorized Specialty Diagnoses / Procedures Referred By Contyesica t Referred To Contact Diagnoses Malignant neoplasm of overlapping sites of left breast in female, estrogen receptor negative (HCC) Encounter for antineoplastic chemotherapy Prevention of chemotherapy-induced neutropenia Procedures [place] DOXORUBIC HCL 10 MG VL CHEMO [place] CARBOPLATIN INJECTION [place] FOSAPREPITANT INJECTION [place] INJ PEMBROLIZUMAB [place] INJECTION, FULPHILA [place] INJ, FILGRASTIM G-CSF 1MCG [place] PACLITAXEL INJECTION [place] INJ CYCLOPHOSPHAMD AUROMEDCelia Munroe MD Hematology/Oncology Treatment, [address] [place] [address] Phone: tel: fax: Referral ID Status Reason Start Date Expiration Date V isits Requested Visits Authorized [id number] Authorized 07/28/2024 12/18/2024 999 [id number] Encounter Details Date Type Department Care Team (Latest Contact Info) Description 10/01/2024 11:30 AM EDT Immunization/ Injection Hematology/Oncology Treatment, [address] [place] [address] Rayna, Chair 10 [address] [address] Malignant neoplasm of overlapping sites of left breast in female, estrogen receptor negative (HCC)*; Encounter for antineoplastic chemotherapy; Prevention of chemotherapy-induced neutropenia Allergies Active Allergy Reactions Criticality Noted Date Comments Vancomycin Low 03/16/2022 documented as of this encounter (statuses as of 10/01/2024) Medications MULTIVITAMINS PO TABS one a day [...] PRIOR TO ACCESSING. 30 g 1 06/15/20 24 Active Additional Information Patient not taking.Reported on 09/30/2024 Loratadine 10 MG Oral Tablet (Claritin)Indication s:Malignant neoplasm of overlapping sites of left breast in female, estrogen receptor negative (HCC) Take 1 tablet by mouth daily x5 days starting the day of chemotherapy 40 Tablet 06/15/20 24 Active Additional Information Patient [...] and 4 of chemo. 20 Tablet 09/08/19 Active Gabapentin 100 MG Oral Capsule (Neurontin)Indicatio ns:Neuropathy due to chemotherapeutic drug (HCC) Take 1 Capsule by mouth at bedtime. 30 Capsule 1 09/08/19 25 Active documented as of this encounter (statuses as of 10/01/2024) Active Problems Problem Noted Date Diagnosed Date [...] as of this encounter (statuses as of 10/01/2024) Resolved Problems Problem Noted Date Diagnosed Date Resolved Date Current mild episode of chente r depressive disorder without prior episode 08/19/2018 4 ABN PAP SMEAR-CERVIX 999 Encounter for supervision of other normal 05/28/2016 Overview (11/21/2015): ICD-10 update of inactive term documented as of this encounter (statuses as of 10/01/2024) Immunizations Name Administration Dates Next Due TD [...] as of this encounter Nursing Notes * Anny Tao LPN - 10/01/2024 11:37 AM EDT Fulphila 6mg administered SQ into the right upper extremity. Patient tolerated injection. documented in this encounter Plan of Treatment Upcoming Encounters Date Type Department Care Team (Late st Contact Info) Description 10/18/2024 9:00 AM EDT [facility] [address] [place] [address] Pratik Quinn MD [address] [place] [address] 10/21/2024 9:00 AM EDT Laboratory Laboratory [facility] [place] [address] [facility] [place] [address] Rayna Lab [address] [place] [address] 10/21/2024 9:30 AM EDT Office Visit Hematology/Oncology [facility] [place] [address] [facility] [place] [address] Ama Barksdale CRNP [address] [place] [address] 10/21/2024 10:00 AM EDT Hem/Onc Treatment Hematology/Oncology Treatment, [place] [address] [facility] [address] [place] [address] Rayna, Chair 7 Hem Onc [address] [place] [address] Scheduled Procedures Name Priority Associated Diagnoses Date/Ti me COLONOSCOPY FLEXIBLE PROXIMAL DIAGNOSTIC Recall Screen for colon cancer Health Maintenance Due Date Last Done Comments Hepatitis B Vaccine (1 of 3 - 19+ 3-dose series) 1993 Cologuard 11/06/2019 Fecal Occult Blood Test 11/06/2019 Sigmoidoscopy 11/06/2019 COVID-19 Vaccine (2023- season) 2024 Influenza Vaccine (FLU shot) (#1) [...] this encounter Medical Devices Implanted Type Area Nursing Education Consultant Device Identifier Shelf Expiration Date Model / Serial / Lot Mediport Power Mri 8fr [id number] - [id number] Implanted:Qty : 1 on 06/23/2024 by Rubén Hou MD at OR [facility] Right: Chest CR BARD : PERIPHERAL VASCULAR 06/19/2025 [id number] / / [id number] Port Implant W8f Poly Cath - [id number] Implanted:Qty : 1 on 06/23/2024 by Rubén Hou MD at OR [facility] CR BARD : PERIPHERAL VASCULAR [id number] 06/19/2025 [id number] / / [id number] documented as of this encounter Visit Diagnoses Diagnosis Malignant neoplasm of overlapping sites of left breast in female, estrogen receptor negative (HCC)- Primary Encounter for antineoplastic chemotherapy Prevention of chemotherapy-induced neutropenia documented in this encounter Administered Medications Inactive Administered Medications - up to 3 most recent administrations Medication Order MAR Action Action Date Dose Rate Site Pegfilgrastim-jmdb (Fulphila) inj 6 mg 6 mg, Subcutaneous, ONCE, On Fri10/01/24 at 1215, For 1 doseIndications:Malignant neoplasm of overlapping sites of left breast in female, estrogen receptor negative (HCC),Encounter for antineoplastic chemotherapy,Prevention of chemotherapy-induced neutropenia Given 10/01/2024 11:33 AM EDT 6 mg Arm Right Upper documented in this encounter Care Teams Biomass Technician Relationship Specialty Start Date End Date [place] Jewell EUGENIA Mckinney [address] [place] [address] PCP - General Physician Development Rep 05/10/24 documented as of this encounter
--- OUTSIDE RECORDS SUMMARY | 2024-10-09 06:30 | External Medical Summary ---
Author Name Unknown Address Unknown Organization K09:[facility] [address] [place] [address] Laboratory Report Ordering Provider Test Date Status JOCY DILL 09/30/2024 07:27:45 Final Observation Date Value Abnormality Reference (Units ) Status BUN 09/30/2024 07:27:45 18 6-20 (mg/dL) Final Creatinine 09/30/2024 07:27:45 0.7 0.5-1.0 (mg/dL) Final Glomerular filtration rate/1.73 sq M.predicted [Volume Rate/Area] in Serum, Plasma or Blood by Creatinine-based formula (CKD-EPI) 09/30/2024 07:27:45 >90 >=60 (mL/min) Final eGFR is calculated based on the CKD-EPI 2020 equation. Sodium 09/30/2024 07:27:45 140 135-146 (m mol/L) Final Potassium 09/30/2024 07:27:45 4.2 3.5-5.1 (m mol/L) Final Cl 09/30/2024 07:27:45 105 98-107 (mm ol/L) Final CO2 09/30/2024 07:27:45 23 22-32 (mmo l/L) Final Anion gap 09/30/2024 07:27:45 12 7-15 (mmol /L) Final Glucose 09/30/2024 07:27:45 172 Above high normal 70 -120 (mg/dL) Final Albumin 09/30/2024 07:27:45 4.6 3.8-5.0 (g /dL) Final AST (Aspartate aminotransferase) 09/30/2024 07:27:45 25 10-35 (U/L) Fin al Alk Phos 09/30/2024 07:27:45 128 35-130 (U/ L) Final Bilirubin, Total 09/30/2024 07:27:45 0.4 <=1 .2 (mg/dL) Final Calcium 09/30/2024 07:27:45 9.5 8.4-10.2 ( mg/dL) Final Protein 09/30/2024 07:27:45 7.2 6.0-8.3 (g /dL) Final ALT (Alanine aminotransferase) 09/30/2024 07:27:45 57 Above high normal 10-35 (U/L) Final Performing Location [facility] [address] [place] [address]
--- OUTSIDE RECORDS SUMMARY | 2024-10-09 06:30 | External Medical Summary | Summary of Care ---
Author Name Unknown Organization [facility] Address [address] [place] [facility] [place] [place] [address] Phone [phone] Care Team Providers Care Display Designer Name Role Phone Jewell Leyva Faye BELLO Primary Care Provider [phone] Reason for Visit * Reason Comments Chemotherapy [...] CYCLOPHOSPHAMD AUROMEDIC Celia Beard MD Hematology/Oncology Treatment, [address] [address] Phone: tel: fax: Referral ID Status Reason Start Date Expiration Date V isits Requested Visits Authorized [id number] Pending Review 07/28/2024 12/18/2024 999 99 Encounter Details Date Type Department Care Team (Latest Contact Info) Description 09/08/2024 10:45 AM EST Hem/Onc Treatment Hematology/Oncolog y Treatment, [address] [address] Rayna, Chair 2 Hem Onc [address] [place] [address] Malignant neoplasm of overlapping sites of left [...] Description 09/30/2024 7:30 AM EDT Laboratory Laboratory [facility] [address] [place] [phone] Rayna, Lab [facility] [address] [facility] [place] [address] 09/30/2024 8:30 AM EDT Office Visit Hematology/Oncology [facility] [place] [address] [place] [phone] Ama Barksdale CRNP [address] [place] [address] 09/30/2024 9:00 AM EDT Hem/Onc Treatment Hematology/Oncology Treatment, [place] [address] [place] [phone] Rayna, Chair 2 Hem On[address] [facility] [address] [facility] [place] [address] 10/18/2024 9:00 AM EDT [facility] [address] [place] [address] Pratik Quinn MD [address] [place], [place] [id number] Scheduled Procedures Name Priority Associated Diagnoses Date/Ti [...] this encounter Medical Devices Implanted Type Area Oyster Harvester Device Identifier Shelf Expiration Date Model / Serial / Lot Mediport Power Mri 8fr [id number] - [id number] Implanted:Qty : 1 on 06/23/2024 by Rubén Hou MD at OR [facility] Right: Chest CR BARD : PERIPHERAL VASCULAR 06/19/2025 [id number] / / [id number] Port Implant W8f Poly Cath - [id number] Implanted:Qty : 1 on 06/23/2024 by Rubén Hou MD at OR [facility] CR BARD : PERIPHERAL VASCULAR [id number] 06/19/2025 [id number] / / [id number] documented as of this encounter Visit Diagnoses [...] mL documented in this encounter Care Teams Display Designer Relationship Specialty Start Date End Date October EUGENIA Mckinney [address] [place] [address] PCP - General Physician Psychiatry Teacher 05/10/24 documented as of this encounter
--- OUTSIDE RECORDS SUMMARY | 2024-10-09 06:30 | External Medical Summary | Summary of Care ---
Author Name Unknown Organization [facility] Address [address] [facility] [place] [address] Phone [phone] Care Team Providers Care Bush Hog Operator Name Role Phone Jewell Leyva EUGENIA Primary Care Provider [phone] Encounter Details Date Type Department Care Team (Late st Contact Info) Description 09/27/2024 Orders Only Hematology/Oncology [address] [place] 200 [facility] [place] [address] Darryn Fong MD 200 [facility] [place] [address] Allergies Active Allergy Reactions Criticality Noted Date Comments Vancomycin Low 03/16/2022 documented as of this encounter (statuses as of 09/27/2024) Medications MULTIVITAMINS PO TABS one a day [...] as of this encounter (statuses as of 09/27/2024) Active Problems Problem Noted Date Diagnosed Date Dehydration 07/05/2024 Malignant neoplasm of overla pping sites of left breast in female, estrogen receptor negative 06/14/2024 Encounter for antineoplastic chemotherapy 2023 Prevention of chemotherapy-induced neutropenia 1 08/14/2023 Food insecurity 05/31/2024 Overview: Per [facility] Protocol ASCUS with positive high risk HPV cervical 06/04 Major depressive disorder, r ecurrent severe without psychotic features 04/10/2023 Major depressive disorder, single episode, moder ate 06/07/2021 Encounter for other general counseling or advice on contraception 04/27/2010 Overview (04/20/2024): ICD-10 update of inactive term documented as of this encounter (statuses as of 09/27/2024) Resolved Problems Problem Noted Date Diagnosed Date Resolved Date Current mild episode of chente r depressive disorder without prior episode 08/19/2018 4 ABN PAP SMEAR-CERVIX 999 Encounter for supervision of other normal 05/28/2016 Overview (11/21/2015): ICD-10 update of inactive term documented as of this encounter (statuses as of 09/27/2024) Immunizations Name Administration Dates Next Due TD [...] Description 09/30/2024 7:30 AM EDT Laboratory Laboratory [address] [phone] [facility] [place] [address] 09/30/2024 8:30 AM EDT Office Visit Hematology/Oncology [address] [place] [address] [place] [phone] [facility]dale [facility] [place] [id number] 09/30/2024 9:00 AM EDT Hem/Onc Treatment Hematology/Oncology Treatment, [place] [address] [place] [address] Rayna, Chair 2 Hem Onc [address] [place] [address] 10/18/2024 9:00 AM EDT Telemedicine Plastic Surgery, [place] [address] [place] [address] Pratik Quinn MD [address] [place] [address] Scheduled Procedures Name Priority Associated Diagnoses Date/Ti [...] this encounter Medical Devices Implanted Type Area Cellophane Worker Device Identifier Shelf Expiration Date Model / Serial / Lot Mediport Power Mri 8fr [id number] - [id number] Implanted:Qty : 1 on 06/23/2024 by Rubén Hou MD at OR [facility] Right: Chest CR BARD : PERIPHERAL VASCULAR 06/19/2025 [id number] / / [id number] Port Implant W8f Poly Cath - [id number] Implanted:Qty : 1 on 06/23/2024 by Rubén Hou MD at OR [facility] CR BARD : PERIPHERAL VASCULAR [id number] 06/19/2025 [id number] / / [id number] documented as of this encounter Care Teams Bush Hog Operator Relationship Specialty Start Date End Date [place] October EUGENIA Mckinney [address] [place] [address] PCP - General Physician Cv/Cvn Cv Tsc System Operator 05/10/24 documented as of this encounter
--- OUTSIDE RECORDS SUMMARY | 2024-10-09 06:30 | External Medical Summary ---
Author Name Unknown Address Unknown Organization K01:[facility] - [address] [place] [address] Laboratory Report Ordering Provider Test Date Status JOCY DILL 09/30/2024 07:27:45 Final Observation Date Value Abnormality Reference (Units ) Status TSH 09/30/2024 07:27:45 0.41 0.27-4.20 (uIU/mL) Final Performing Location [facility] - [address] [place] [address]
--- OUTSIDE RECORDS SUMMARY | 2024-10-09 06:30 | External Medical Summary ---
Author Name Unknown Address Unknown Organization K09:[facility] [place] [address] [address] Laboratory Report Ordering Provider Test Date Status JOCY DILL 09/30/2024 07:27:45 Final Observation Date Value Abnormality Reference (Units ) Status Nucleated erythrocytes/100 leukocytes [Ratio] in Blood by Automated count 09/30/2024 07:27:45 Final Performing Location [facility] [place] [address]
--- OUTSIDE RECORDS SUMMARY | 2024-10-09 06:30 | External Medical Summary | Summary of Care ---
Author Name Unknown Organization [facility] Address [address] [place] [facility] [place] [address] Phone [phone] Care Team Providers Care Laborer [employer] Name Role Phone Jewell Leyva Faye BELLO Primary Care Provider [phone] Reason for Visit * Reason Comments Medication Administration Fulphila * Episode Based Medications (Routine) - Authorized Specialty Diagnoses / Procedures Referred By Jacobo lo Referred To Contact Diagnoses Malignant neoplasm of overlapping sites of left breast in female, estrogen receptor negative (HCC) Encounter for antineoplastic chemotherapy Prevention of chemotherapy-induced neutropenia Procedures [place] DOXORUBIC HCL 10 MG VL CHEMO [place] CARBOPLATIN INJECTION [place] FOSAPREPITANT INJECTION [place] INJ PEMBROLIZUMAB [place] INJECTION, FULPHILA [place] INJ, FILGRASTIM G-CSF 1MCG [place] PACLITAXEL INJECTION [place] INJ CYCLOPHOSPHAMD Celia Ma MD Hematology/Oncology Treatment, [address] [place] [address] Phone: tel: fax: Referral ID Status Reason Start Date Expiration Date V isits Requested Visits Authorized [id number] Authorized 07/28/2024 12/18/[phone] Encounter Details Date Type Department Care Team (Latest Contact Info) Description 09/09/2024 4:15 PM EST Immunization/ Injection Hematology/Oncology Treatment, [address] [place] [address] Rayna, Chair 2 Hem Onc [address] [address] Malignant neoplasm of overlapping sites of left breast in female, estrogen receptor negative (HCC)*; Encounter for antineoplastic chemotherapy; Prevention of chemotherapy-induced neutropenia Allergies Active Allergy Reactions Criticality Noted Date Comments Vancomycin Low 03/16/2022 documented as of this encounter (statuses as of 09/29/2024) Medications MULTIVITAMINS PO TABS one a day [...] as of this encounter (statuses as of 09/29/2024) Active Problems Problem Noted Date Diagnosed Date Dehydration 07/05/2024 Malignant neoplasm of overla pping sites of left breast in female, estrogen receptor negative 06/14/2024 Encounter for antineoplastic chemotherapy 2023 Prevention of chemotherapy-induced neutropenia 1 08/14/2023 Food insecurity 05/31/2024 Overview: Per [facility] Protocol ASCUS with positive high risk HPV cervical 06/04 Major depressive disorder, r ecurrent severe without psychotic features 04/10/2023 Major depressive disorder, single episode, moder ate 06/07/2021 Encounter for other general counseling or advice on contraception 04/27/2010 Overview (04/20/2024): ICD-10 update of inactive term documented as of this encounter (statuses as of 09/29/2024) Resolved Problems Problem Noted Date Diagnosed Date Resolved Date Current mild episode of chente r depressive disorder without prior episode 08/19/2018 4 ABN PAP SMEAR-CERVIX 999 Encounter for supervision of other normal 05/28/2016 Overview (11/21/2015): ICD-10 update of inactive term documented as of this encounter (statuses as of 09/29/2024) Immunizations Name Administration Dates Next Due TD [...] as of this encounter Nursing Notes * Kathya Otoole RN - 09/09/2024 4:31 PM EST Chair 11 Patient here for injection. Patient complained of fatigue. Injection given as per order to right upper arm. Pt discharged in stable condition. documented in this encounter Plan of Treatment Upcoming Encounters Date Type Department Care Team (Late st Contact Info) Description 09/30/2024 7:30 AM EDT Laboratory Laboratory [facility] [address] [place] [phone] Rayna, Lab [address] [place] [address] 09/30/2024 8:30 AM EDT Office Visit Hematology/Oncology [facility] [place] 200 [facility] [place] [phone] Ama Barksdale CRNP [address] [place] [address] 09/30/2024 9:00 AM EDT Hem[facility] [address] [place] [phone] Rayna, Chair 2 Hem Onc [facility] 200 [facility] [place] [address] 10/18/2024 9:00 AM EDT [facility] [address] [place] [address] Pratik Quinn MD [address] [place] [address] Scheduled Procedures Name Priority Associated Diagnoses Date/Ti [...] this encounter Medical Devices Implanted Type Area Asphalt Tamper Device Identifier Shelf Expiration Date Model / Serial / Lot Mediport Power Mri 8fr [id number] - [id number] Implanted:Qty : 1 on 06/23/2024 by Rubén Hou MD at OR [facility] Right: Chest CR BARD : PERIPHERAL VASCULAR 06/19/2025 [id number] / / [id number] Port Implant W8f Poly Cath - [id number] Implanted:Qty : 1 on 06/23/2024 by Rubén Hou MD at OR [facility] CR BARD : PERIPHERAL VASCULAR [id number] 06/19/2025 [id number] / / [id number] documented as of this encounter Visit Diagnoses [...] 6 mg 6 mg, Subcutaneous, ONCE, On Yudi 09/09/24 at 1700, For 1 doseIndications:Malignant neoplasm of overlapping sites of left breast in female, estrogen receptor negative (HCC),Encounter for antineoplastic chemotherapy,Prevention of chemotherapy-induced neutropenia Given 09/09/2024 4:22 PM EST 6 mg Arm Right Upper documented in this encounter Care Teams Laborer Brooder Farm Relationship Specialty Start Date End Date [place] October EUGENIA Mckinney [address] [place] [address] PCP - General Physician Fresh Foods Technician 05/10/24 documented as of this encounter
--- OUTSIDE RECORDS SUMMARY | 2024-10-09 06:31 | External Medical Summary | Summary of Care ---
Author Name Unknown Organization [facility] Address [address] [place] [facility] [place] [address] Phone [phone] Care Team Providers Care Latex Caster Name Role Phone Jewell Leyva Faye BELLO Primary Care Provider [phone] Reason for Referral * Evaluate & Treat - Unlimited Visits (Within 10 days (routine)) - Pending Review Specialty Diagnoses / Procedures Referred By Jacobo lo Referred To Contact Breast Clinic Multi Specialty Diagnoses Malignant neoplasm of overlapping sites of left breast in female, estrogen receptor negative (HCC) Shannon Ramos CRNP [address] [place] [address] Phone: tel: fax: Referral ID Status Reason Start Date Expiration Date Visits Requested Visits Authorized [id number] Pending Review Specialty Services Required 09/08/[phone] Question Answer Referral Priority Within 10 days (routine) Where should this appointment be scheduled? Yuriy Lindsay Comments Surgery to be completed after chemotherapy in 12 weeks Reason for Visit * Reason Comments Re-Check Chemo recheck Encounter Details Date Type Department Care Team (Latest Contact Info) Description 09/08/2024 10:00 AM EST Office Visit Hematology/Oncology [address] [place] [address] [facility] [phone] Shannon Ramos CRNP [address] [facility] [place] [address] Neuropathy due to chemotherapeutic drug (HCC)*; Malignant neoplasm of overlapping sites of left breast in female, estrogen receptor negative (HCC); Encounter for antineoplastic chemotherapy; Prevention of chemotherapy-induced neutropenia Allergies Active Allergy Reactions Criticality Noted Date Comments Vancomycin Low 03/16/2022 documented as of this encounter (statuses as of 09/09/2024) Medications MULTIVITAMINS PO TABS one a day [...] 06/23/2024 diphenhydrAMINE HCl 25 MG Oral Tablet (Benadryl)Indicatio ns:Malignant neoplasm of overlapping sites of left breast in female, estrogen receptor negative (HCC),Encounter for antineoplastic chemotherapy,Preven tion of chemotherapy-induce d neutropenia Take by mouth 1 Capsule 12 hours prior to paclitaxel infusion. 12 Tablet 06/15/20 Active Additional Information Patient not taking.Reported on 06/23/2024 Famotidine 20 MG Oral Tablet (Pepcid)Indications :Malignant neoplasm of overlapping sites of left breast in female, estrogen receptor negative (HCC),Encounter for antineoplastic chemotherapy,Preven tion of chemotherapy-induce d neutropenia Take by mouth 1 Tablet 12 hours prior to paclitaxel infusion. 12 Tablet 06/15/20 24 Active Additional Information Patient not taking.Reported on 06/23/2024 Prochlorperazine Maleate 10 MG Oral Tablet (Compazine)Indicati ons:Malignant neoplasm of overlapping sites of left breast in female, estrogen receptor negative (HCC),Encounter for antineoplastic chemotherapy,Preven tion of chemotherapy-induce d neutropenia Take 1 Tablet by mouth every 6 hours as needed for Nausea. 30 Tablet 5 06/15/20 24 Active Additional Information Patient not taking.Reported on 06/23/2024 Lidocaine-Prilocain e 2.5-2.5 % External Cream (Emla)Indications:M alignant neoplasm of overlapping sites of left breast in female, estrogen receptor negative (HCC) APPLY TO SKIN OVER MEDIPORT & COVER 1HR PRIOR TO ACCESSING. 30 g 1 06/15/20 Active Additional Information Patient not taking.Reported on 06/23/2024 Loratadine 10 MG Oral Tablet (Claritin)Indicatio ns:Malignant neoplasm of overlapping sites of left breast in female, estrogen receptor negative (HCC) Take 1 tablet by mouth daily x5 days starting the day of chemotherapy 40 Tablet 06/15/20 Active Additional Information Patient not taking.Reported on 06/23/2024 Ondansetron HCl 8 MG Oral Tablet (Zofran)Indications :Malignant neoplasm of overlapping sites of left breast in female, estrogen receptor negative (HCC) Take 1 Tablet by mouth every 8 hours as needed for Nausea. 30 Tablet 3 06/15/20 Active Additional Information Patient not taking.Reported on 06/23/2024 dexAMETHasone 4 MG Oral Tablet (Decadron)Indicatio ns:Malignant neoplasm of overlapping sites of left breast in female, estrogen receptor negative (HCC) Take 2 tablets by mouth for 2 days prior to chemotherapy ( as well as 2 tablets by mouth for 3 days after chemotherapy). 16 Tablet 06/29/20 24 Active Amoxicillin-Pot Clavulanate 875-125 MG Oral Tablet (Augmentin)Indicati ons:Malignant neoplasm of overlapping sites of left breast in female, estrogen receptor negative (HCC) Take 1 Tablet by mouth in the morning and 1 Tablet before bedtime. 28 Tablet 06/28/20 24 Active oxyCODONE-Acetamino phen 5-325 MG Oral Tablet (Percocet)Indicatio ns:Malignant neoplasm of overlapping sites of left breast in female, estrogen receptor negative (HCC) Take 2 Tablets by mouth every 6 hours as needed for Pain, Mild, Pain, Moderate or Pain, Severe. 90 Tablet 06/28/20 24 Active PARoxetine HCl 40 MG Oral Tablet (pAXil) TAKE 1 TABLET BY MOUTH EVERY MORNING 90 Tablet 1 07/13/20 24 Active OLANZapine 10 MG Oral Tablet (zyPREXA)Indication s:Malignant neoplasm of overlapping sites of left breast in female, estrogen receptor negative (HCC),Encounter for antineoplastic chemotherapy,Preven tion of chemotherapy-induce d neutropenia Take 1 Tablet by mouth at bedtime. On days 1, 2, 3, and 4 of chemo. 20 Tablet 09/08/19 25 Active Gabapentin 100 MG Oral Capsule (Neurontin)Indicati ons:Neuropathy due to chemotherapeutic drug (HCC) Take 1 Capsule by mouth at bedtime. 30 Capsule 1 09/08/19 25 Active OLANZapine 10 MG Oral Tablet (zyPREXA)Indication s:Malignant neoplasm of overlapping sites of left breast in female, estrogen receptor negative (HCC),Encounter for antineoplastic chemotherapy,Preven tion of chemotherapy-induce d neutropenia Take 1 Tablet by mouth at bedtime. On days 1, 2, 3, and 4 of chemo. 20 Tablet 08/18/19 25 025 Disconti nued(Ref ill) documented as of this encounter (statuses as of 09/09/2024) Active Problems Problem Noted Date Diagnosed Date Dehydration 07/05/2024 Malignant neoplasm of overla pping sites of left breast in female, estrogen receptor negative 06/14/2024 Encounter for antineoplastic chemotherapy 2023 Prevention of chemotherapy-induced neutropenia 1 08/14/2023 Food insecurity 05/31/2024 Overview: Per [facility] Protocol ASCUS with positive high risk HPV cervical 06/04 Major depressive disorder, r ecurrent severe without psychotic features 04/10/2023 Major depressive disorder, single episode, moder ate 06/07/2021 Encounter for other general counseling or advice on contraception 04/27/2010 Overview (04/20/2024): ICD-10 update of inactive term documented as of this encounter (statuses as of 09/09/2024) Resolved Problems Problem Noted Date Diagnosed Date Resolved Date Current mild episode of chente r depressive disorder without prior episode 08/19/2018 4 ABN PAP SMEAR-CERVIX 999 Encounter for supervision of other normal 05/28/2016 Overview (11/21/2015): ICD-10 update of inactive term documented as of this encounter (statuses as of 09/09/2024) Immunizations Name Administration Dates Next Due TD [...] Sign Reading Time Taken Comments Blood Pressure 143/84 09/08/2024 10:00 AM EST Pulse 89 09/08/2024 10:00 AM EST Temperature 36.6 C (97.9 F) 09/08/2024 10:[address] Respiratory Rate 18 09/08/2024 10:00 AM EST Oxygen Saturation 95% 09/08/2024 10:00 AM EST Inhaled Oxygen Concentration - - Weight 94 kg (207 lb 3.2 oz) 09/08/2024 10:00 AM EST Height - - Body Mass Index 34.44 06/24/2024 3:07 PM EST documented in this encounter Progress Notes * Shannon Ramos CRNP - 09/08/2024 10:00 AM EST Hematology/Oncology Outpatient Clinic note [address] Name: Radha Fung Date: 09/08/2024 CHIEF COMPLAINT: Radha Fung is a 48 year old female patient of Dr. Darryn Fong here today for f/u visit From Patient chart confirmed history with patient. From Dr. 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 ( diagnosed in May 2024). About 5.7 cm primary tumor based on the breast MRI. -left axillary and left internal mammary lymph node involvement based on the PET-CT scan findings. CURRENT TREATMENT: Neoadjuvant Chemotherapy protocol as follows: Pembrolizumab 200 mg, carboplatin AUC 5 and paclitaxel 175 mg/m2 to be given on day 1 of cycles 1-4with pegfilgrastim 6 mg SQ injection given on day 2 of each cycle (06/28/24 - 09/08/2024) Followed by Pembrolizumab 200 mg + Doxorubicin + Cyclophosphamide q21 Days x 12 Weeks, Followed by Surgery 08/18/2024 --> she is here for cycle 3 chemotherapy with pembrolizumab, carboplatin and Paclitaxel. She will receive prophylactic Pegfilgrastim to prevent febrile neutropenia. DIAGNOSTIC WORKUP: She had a bilateral breast [...] carcinoma grade 3, extensive necrosis. -ER negative, AL weakly positive in 10% malignamt cells, HER2 [...] bone pain, takes Percocet on p.r.n. basis. INTERVAL HISTORY: She has come the clinic for the follow-up, so far she has received 3 cycles of chemotherapy with pembrolizumab, carboplatin and Paclitaxel, tolerated well, Due today for #4. After cycle 3, she had a low grade temperature and viral illness that lasted 2 weeks. She is feeling back to her self. No fever or chills. Normal energy level and appetite. No chest pain or shortness of breath She does have so me mild neuropathy in feet and tips of fingers. The numbness in tips of fingers does go away. The feet feel like heavy blocks and start to bother her when standing all day long at the job. She is interested in starting some Gabapentin Denies abdominal pain, constipation or persistent diarrhea. No N/V. Appetite ok. Fatigue noted. No urinary issues. HISTORY OF PRESENT ILLNESS: Radha Fung is a 48 year old female with a history as outlined above. Currently here for f/u visit today. Would like a referral to surgery to get that ball rolling. She also would like a PET scan after all chemotherapy. Past Medical History: Diagnosis Date Abnormal Papanicolaou smear of cervix and cervical HPV Malignant neoplasm of overlapping sites of left breast in female, estrogen receptor negative (HCC) 06/14/2024 Other anxiety states Varicella without complication Past Surgical History: Procedure Laterality Date COLONOSCOPY, DIAGNOSTIC (RECTUM) 04/11/2023 hemorrhoids/recall 10 years/COLONOSCOPY FLEXIBLE PROXIMAL DIAGNOSTIC performed by Rajendra Leon MD at ENDOSCOPY [facility] COLPOSCPY CERVIX W/BX AND EC 1997,1998 INSER TUNN ACC DEV;5 YRS/OLDER Right 06/23/2024 INSERT TUNNELED CENTRAL VENOUS ACCESS WITH SUBQ PORT performed by Rubén Hou MD at OR [facility] SURGICAL PROCEDURE ONLY Left 05/27/2024 Aspiration on [...] Partners: Male control/protection: I.U.D. Comment: zechariah giang 2015 Other Topics Concern Service No Blood Transfusions [...] Stability Do you currently live in a retirement or have no steady place to sleep [...] 3, and 4 ofchemo. 20 Tablet 0 No current facility-administered medications for this visit. REVIEW OF SYSTEMS: See HPI - otherwise negative OBJECTIVE: Filed Vitals: 09/08/24 1000 BP: 143/84 Pulse: 89 Resp: 18 Temp: 36.6 C (97.9 F) TempSrc: Tympanic SpO2: 95% Weight: 94 kg (207 lb 3.2 oz) PHYSICAL EXAM: ECOG: Performance Status 0 = 100% Normal Activity General Appearance: Normal - pleasant appearing patient in no acute distress, alopecia HEENT: Normal - No oral or pharyngeal masses, ulceration or thrush noted, no sinus tenderness Lymph Nodes: Normal - No palpable lymph nodes in the neck or supraclavicular areas Lungs/Thorax: Normal - Clear to auscultation Heart: Normal - Regular rate and rhythm, normal S1, S2, no appreciable murmurs, rubs, gallops Pulses/Extremities: Normal - 2+ throughout and symmetrical, no edema Abdomen: Normal - Soft, nontender, bowel sounds present, no appreciable hepatosplenomegaly, no palpable masses Musculoskeletal: Normal - No pain on palpation over bony prominence, no joint or bony deformity Neurologic: Normal - Grossly intact LABS: Results for orders placed or performed in visit on 09/08/24 COMPREHENSIVE METABOLIC PANEL Result Value Ref Range BUN 17 6 - 20 mg/dL CREATININE 0.7 0.5 - 1.0 mg/dL EGFR >90 >=60 mL/min SODIUM 143 135 - 146 mmol/L POTASSIUM 4.1 3.5 - 5.1 mmol/L CHLORIDE 102 98 - 107 mmol/L CO2 27 22 - 32 mmol/L ANION GAP 14 7 - 15 mmol/L GLUCOSE 148 (H) 70 - 120 mg/dL Albumin 4.8 3.8 - 5.0 g/dL AST 26 10 - 35 U/L Alkaline Phosphatase 126 35 - 130 U/L Bilirubin, Total 0.4 <=1.2 mg/dL CALCIUM 9.8 8.4 - 10.2 mg/dL Protein 7.8 6.0 - 8.3 g/dL ALT 73 (H) 10 - 35 U/L CBC Result Value Ref Range WBC 9.26 4.00 - 10.80 K/uL RBC 3.97 3.85 - 5.15 M/uL HGB 12.8 12.0 - 15.3 g/dL HCT 38.7 36.0 - 45.2 % MCV 97.5 81.5 - 97.5 fL MCH 32.2 27.0 - 34.0 pg MCHC 33.1 32.0 - 36.0 g/dL RDW 16.6 11.5 - 15.5 % PLT 189 140 - 400 K/uL MPV 9.5 6.6 - 11.1 fL DIFFERENTIAL, AUTOMATED Result Value Ref Range WBC 9.26 4.00 - 10.80 K/uL Neutrophils % 90.0 (H) 40.0 - 75.0 % Lymphocytes % 8.2 (L) 18.0 - 42.0 % Monocytes % 1.5 1.0 - 11.0 % Eosinophils % 0.0 0.0 - 6.0 % Basophils % 0.3 0.0 - 2.0 % Absolute Neutrophils 8.33 (H) 1.80 - 7.70 K/uL Absolute Lymphocytes 0.76 (L) 1.00 - 4.80 K/ul Absolute Monocytes 0.14 0.00 - 1.10 K/uL Absolute Eosinophils 0.00 0.00 - 0.70 K/uL Absolute Basophils 0.03 0.00 - 0.20 K/uL DIFFERENTIAL, TECHNOLOGIST REVIEW Result Value Ref Range nRBCs Reactive Lymphocytes Present (A) None Seen IMPRESSION/PLAN: Left breast invasive ductal carcinoma, grade 3 TNBC Prevention of chemotherapy induced neutropenia CIPN Currently completing neoadjuvant chemotherapy with Keytruda, Carbo, Taxol every 21 days. Presents today for consideration of C4D1 for today. Tolerating treatment plan well with no signs or symptoms of significant toxicity noted. Did experience some mild CIPN that is bothering her with standing long periods. Try Gabapentin 100 mg one tablet at HS. May increase dose to 300 mg at HS Lab results reviewed. Confirms taking dexamethasone as prescribed. Will receive Pegfilgrastim support D2 for prevention of chemotherapy induced neutropenia Pt requests referral to breast surgeon. Family also would like PET scan after the last 12 weeks of chemotherapy RTC in three weeks with Dr. Fong for chemo return and begin Adriamycin, Cytoxan and Keytruda + cbc, cmp, tsh SENDY Nicole documented in this encounter Nursing Notes * Gracie Payton LPN - 09/08/2024 10:02 AM EST Patient identifed by name and birthdate Do you have any concerns about pain management for today's visit? No Living Will or Advance Directive for Health Care as noted on the problem list. [facility] is a way you can talk to your provider on line through e-mail. Would you like to sign up? I can activate it for you? NO Filed Vitals: 09/08/24 1000 BP: 143/84 Pulse: 89 Resp: 18 Temp: 36.6 C (97.9 F) TempSrc: Tympanic SpO2: 95% Weight: 94 kg (207 lb 3.2 oz) Patient was instructed to not get [...] Care Team (Late st Contact Info) Description 09/09/2024 4:15 PM EST Immunization/Injecti on Hematology/[address]cology [address] [phone] Rayna, Chair [address] [place] [address] 09/30/2024 7:30 AM EDT Laboratory Laboratory [address] [place] [phone] [address] [place] [address] 09/30/2024 8:30 AM EDT Office Visit Hematology/Oncology [address] [place] [phone] Ama Barksdale CRNP [address] [place] [address] [place] [address] 09/30/2024 9:00 AM EDT Hem/Onc Treatment Hematology/[address]cology [address], [address] [phone] Rayna, Chair [address] [place] [address] Scheduled Procedures Name Priority Associated Diagnoses Date/Ti me COLONOSCOPY FLEXIBLE PROXIMAL DIAGNOSTIC Recall Screen for colon cancer Scheduled Referrals Name Type Priority Associated Diagnoses Orde r Schedule BREAST [facility] CL[facility] REFERRAL OP Referral Within 10 days (routine) Malignant neoplasm of overlapping sites of left breast in female, estrogen receptor negative (HCC) Ordered: 09/08/2024 Health Maintenance Due Date Last Done Comments [...] this encounter Medical Devices Implanted Type Area Assistant Program Manager Device Identifier Shelf Expiration Date Model / Serial / Lot Mediport Power Mri 8fr [id number] - [id number] Implanted:Qty : 1 on 06/23/2024 by Rubén Hou MD at OR [facility] Right: Chest CR BARD : PERIPHERAL VASCULAR 06/19/2025 [id number] / / [id number] Port Implant W8f Poly Cath - [id number] Implanted:Qty : 1 on 06/23/2024 by Rubén Hou MD at OR [facility] BARD : PERIPHERAL VASCULAR [id number] 06/19/2025 [id number] / / [id number] documented as of this encounter Visit Diagnoses Diagnosis 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
--- OUTSIDE RECORDS SUMMARY | 2024-10-09 06:31 | External Medical Summary | Summary of Care ---
Author Name Unknown Organization [facility] Address [address] [place] [address] Phone [phone] Care Team Providers Care Care Advocate Name Role Phone Jewell Leyva EUGENIA Primary Care Provider [phone] Reason for Visit * Reason Onset Date Comments Referral 09/09/2024 Encounter Details Date Type Department Care Team (Late st Contact Info) Description 09/09/2024 Telephone General Surgery, [place] [address] [place] [address] Services, [facility] [address] [place] [address] Referral Allergies Active Allergy Reactions Criticality Noted Date [...] 1 08/14/2023 Food insecurity 05/31/2024 Overview: Per [facility] Protocol ASCUS with positive high [...] on file documented as of this encounter Miscellaneous Notes * Telephone Encounter - Natalie Parks OSA - 09/09/2024 8:52 AM EST Scheduled on 09/14/24. * Telephone Encounter - Matilda Segura LPN - 09/09/2024 8:14 AM EST Referral from: hSannon KABA Consult: Breast Surgery, Dr. Lindsay For: "Surgery to be completed after chemotherapy in 12 weeks" Referral received as detailed above. Noted that patient is current/active with Dr. Lindsay, most recently seen in 06/2024. As this is a return patient, will notify dept of referral so they may facilitate appropriate scheduling. Chrissy Segura LPN Intake Nurse Navigator General Surgery and Breast Clinic [facility] documented in this encounter Plan of Treatment Upcoming Encounters Date Type Department Care Team (Late st Contact Info) Description 09/09/2024 4:15 PM EST Immunization/Injecti on Hematology/[address]cology [address], [address] [phone] Rayna, Chair 2 Hem Onc [address] [place] [address] 09/14/2024 3:30 PM EST Office Visit General Surgery, [facility] [address] [facility] [place] [address] Fawn Lindsay [facility] [address] [facility] [place] [address] 09/30/2024 7:30 AM EDT Laboratory Laboratory [facility] [address] [place] [phone] Rayna Lab [address] [facility] [place] [phone] 09/30/2024 8:30 AM EDT Office Visit Hematology/Oncology [facility] [address] [place] [phone] Ama Barksdale CRNP [address] [facility] [place] [address] 09/30/2024 9:00 AM EDT Hem/Onc Treatment Hematology/Oncology [address], [address] [phone] Rayna, Chair 2 Hem Onc [address] [place] [address] Scheduled Procedures Name Priority Associated Diagnoses Date/Ti [...] this encounter Medical Devices Implanted Type Area Lamination Spinner Device Identifier Shelf Expiration Date Model / Serial / Lot Mediport Power Mri 8fr [id number] - [id number] Implanted:Qty : 1 on 06/23/2024 by Rubén Hou MD at OR [facility] Right: Chest CR BARD : PERIPHERAL VASCULAR 06/19/2025 [id number] / / [id number] Port Implant W8f Poly Cath - [id number] Implanted:Qty : 1 on 06/23/2024 by Rubén Hou MD at OR [facility] BARD : PERIPHERAL VASCULAR [id number] 06/19/2025 [id number] / / [id number] documented as of this encounter Care Teams Care Advocate Relationship Specialty Start Date End Date Jewell Leyva, EUGENIA [address] [facility] [place] [address] PCP - General Physician Fermenter Wine 05/10/24 documented as of this encounter
--- OUTSIDE RECORDS SUMMARY | 2024-10-09 06:31 | External Medical Summary | Summary of Care ---
Author Name Unknown Organization [facility] Address [address] [place] [address] Phone [phone] Care Team Providers Care Cloth Drier Name Role Phone Gordon Jewell Faye EUGENIA Primary Care Provider [phone] Reason for Visit * Reason Comments Follow Up Discuss surgery. Encounter Details Date Type Department Care Team (Late st Contact Info) Description 09/14/2024 3:30 PM EST Office Visit General Surgery, [facility] [address] [place] [address] Fawn Lindsay MD [address] [place] [address] Malignant neoplasm of upper-inner quadrant of left breast in female, estrogen receptor negative (HCC)* Allergies Active Allergy Reactions Criticality Noted Date Comments Vancomycin Low 03/16/2022 documented as of this encounter (statuses as of 09/15/2024) Medications MULTIVITAMINS PO TABS one a day [...] times a day. 20 g 3 11/06/19 Active Additional Information Patient not taking.Reported on [...] as of this encounter (statuses as of 09/15/2024) Active Problems Problem Noted Date Diagnosed Date Dehydration 07/05/2024 Malignant neoplasm of overla pping sites of left breast in female, estrogen receptor negative 06/14/2024 Encounter for antineoplastic chemotherapy 2023 Prevention of chemotherapy-induced neutropenia 1 08/14/2023 Food insecurity 05/31/2024 Overview: Per [facility] Protocol ASCUS with positive high risk HPV cervical 06/04 Major depressive disorder, r ecurrent severe without psychotic features 04/10/2023 Major depressive disorder, single episode, moder ate 06/07/2021 Encounter for other general counseling or advice on contraception 04/27/2010 Overview (04/20/2024): ICD-10 update of inactive term documented as of this encounter (statuses as of 09/15/2024) Resolved Problems Problem Noted Date Diagnosed Date Resolved Date Current mild episode of chente r depressive disorder without prior episode 08/19/2018 4 ABN PAP SMEAR-CERVIX 999 Encounter for supervision of other normal 05/28/2016 Overview (11/21/2015): ICD-10 update of inactive term documented as of this encounter (statuses as of 09/15/2024) Immunizations Name Administration Dates Next Due TD [...] Sign Reading Time Taken Comments Blood Pressure 123/62 09/14/2024 3:24 PM EST Pulse 103 09/14/2024 3:24 PM EST Temperature - - Respiratory Rate - - Oxygen Saturation - - Inhaled Oxygen Concentration - - Weight 96.2 kg (212 lb) 09/14/2024 3:24 PM EST Height - - Body Mass Index 35.24 06/24/2024 3:07 PM EST documented in this encounter Progress Notes * Fawn Lindsay MD - 09/14/2024 4:00 PM EST [facility] GENERAL SURGERY F/U BREAST CANCER CLINIC NOTES Chief Complaint Patient presents with Follow Up Discuss surgery. REASON FOR CONSULTATION: Left triple negative breast cancer metastatic to axillary nodes and internal mammary node HPI: Radha Fung is a 48 year old female who is here to discuss surgical scheduling for her large left essentially triple negative breast cancer (ER neg, IL 10%, her2 neg), currently undergoing neoadjuvant chemotherapy. [place] the lump go away within 1-2 cycles. Now able to lay face down without pain. Had a week delay with the second treatment due to liver elevations. No hospitalizations. Otherwise tolerating well. Has four more treatments planned. Met with plastic surgery and would be candidate for implant or tissue transfer. She is not interested in implant and is leaning toward REJI flap. Genetic testing 08/26/24: Clinically negative. No significant (pathogenic) variants identified. Test Ordered: Multi-Cancer Panel + Expanded Breast/Retirement Actuary Panel at [facility] (74 genes) Genes Included: AIP, ALK, APC, CARLOS, AXIN2, BAP1, BARD1, BLM, BMPR1A, BRCA1, BRCA2, BRIP1, CDC73, CDH1, CDK4, CDKN1B, CDKN2A (p14ARF), CDKN2A ([id number]), CHEK2, CTNNA1, DICER1, EGFR, EPCAM, FH, FLCN, GREM1, HOXB13, KIT, LTZR1, MAX, MBD4, MEN1, MET, MITF, MLH1, MSH2, MSH3, MSH6, MUTYH, NF1, NF2, NTHL1, PALB2, PDGFRA, PMS2, POLD1, POLE, POT1, NLUHF7N, PTCH1, PTEN, RAD51C, RAD51D, RB1, RET, SDHA, SDHAF2, SDHB, SDHC, SDHD, SMAD4, SMARCA4, SMARCB1, SMARCE1, STK11, SUFU, HMEZ824, TP53, TSC1, TSC2, VHL+ FANCC, FANCM, NBN, RECQL Variant of uncertain significance (VUS) identified: ALK, c.3160G>A ([id number]); ClinVarID: [id number] No previous breast biopsy. Paternal grandmother with ovarian cancer - . Pathology: 06/02/24: A. Breast, Left, left breast 11:00 9cm FN - palpable, core biopsy: Invasive ductal carcinoma, histologic grade 3, associated extensive necrosis Predictive markers ordered at 1024 Order Comments Enlarging complex solid and cystic mass left breast 11:00 concerning for malignancy Gross Description A. Breast, Left. Received in formalin with a container labeled with "Radha Fung", "[id number]", "1975" and "left breast, eleven o'clock, 9 cm from nipple". Received are multiple cores of khan-yellow fibroadipose tissue ranging from 0.3 cm to 0.8 cm in length, each approximately 0.2 cm in diameter. The specimen is entirely submitted in cassettes A1. Collection/ischemic time: time 1047, date 06/02/2024, time in formalin: time not provided, date 06/02/2024. Left breast, case [id number], block A1: Estrogen Receptor (ER) protein expression is NEGATIVE <1% nuclear positivity COMMENT: Assay internal and external control immunoreactivity is appropriate. Progesterone Receptor (IL) protein expression is WEAKLY POSITIVE 10% nuclear positivity 1+ average intensity score (range 0 to 3+) HER2 oncoprotein expression is NEGATIVE ( 1+ average membranous intensity) 06/22/24 A. Skin, Breast, Left, punch: Granulation tissue and granulomas with acute and chronic inflammation in deep dermis (see comment) No malignancy identified on this biopsy Comment: There are reactive and inflammatory changes present in the deep dermis extending to the deep edge of the punch biopsy, suggesting that this biopsy likely represents the superficial aspect ofa deeper process. The superficial aspect of an infectious abscess or a ruptured cyst could have these findings. However, no cyst contents, epithelial cyst lining, or infectious organisms identified on this sample. No malignancy is identified on this sample. This sample may not be marketing representative of the entire process. If the process persists/progresses, or if there is continued clinical or radiographic concern, deeper repeat biopsies would be recommended (ideally incisional biopsies to include ample subcutis; one sample for tissue microbial culture and one sample for routine H&E pathology analysis). If repeat skin biopsy is performed in the future, clinical photography of the skin prior to biopsy is recommended, as the clinical dermatologic appearance is often crucially important during microscopic evaluation of skin biopsies. BREAST ROS: No nipple discharge and No recent change in shape/color GYNECOLOGIC HISTORY: LMP: No LMP recorded. Patient has had an implant. Does not get periods. Menarche at age: 12 Menopause at age: not sure. Number of children: 3 Patient's age at first live : 22 Did you breast feed any of your children: a little while. Ever take oral contraceptives? Yes, history of use for 3-4 year(s) Ever take estrogen? No RADIOLOGIC INTERPRETATION: 06/10/24: Result MRI BREAST BILATERAL W WO CONTRAST History Malignant neoplasm of upper-inner quadrant of left breast in female, estrogen receptor negative (hcc) Family medical history includes ovarian cancer in grandmother (paternal). Technique MR (magnetic resonance) imaging was performed utilizing multiple sequences. Following the intravenous administration of gadolinium, dynamic scanning was performed. Kinetic analysis was evaluated withUberMedia software. Films Compared 06/02/2024 US GUIDED BREAST BIOPSY LEFT, 03/18/2024 US BREAST LIMITED LEFT, 03/18/2024 MAMMOGRAM DIAGNOSTIC KEN LEFT, 01/16/2024 MAMMOGRAM DIAGNOSTIC KEN BILATERAL, 01/16/2024 US BREAST LIMITED LEFT, 03/25/2023 US BREAST LIMITED LEFT, 03/25/2023 MAMMOGRAM DIAGNOSTIC LEFT, 03/14/2023 MAMMOGRAM SCREENING KEN BILATERAL, and 10/04/2019 MAMMOGRAM SCREENING KEN BILATERAL Findings Left. The left breast has scattered fibroglandular tissue. There is mild background parenchymal enhancement. Left upper inner quadrant biopsy-proven invasive ductal carcinoma measures 5.1 x 5.1 x 4.9 cm. Thismass is solid and cystic with irregular and nodular peripheral enhancement. There is associated mass effect and edema within the adjacent breast parenchyma. Lateral to the biopsy-proven invasive ductal carcinoma there are multiple similar appearing cystic masses with peripheral rim enhancement spanning approximally 2.0 x 4.1 x 3.6 cm. These masses are concerning for satellite lesions. Another conglomerate of probable satellite masses medial to the domin ant mass measure approximately 22 x 18 x 24 mm. Additional probable cluster of satellite masses along the inferior medial margin of the biopsy-proven invasive ductal carcinoma measures 16 x 20 x 9 mm. There are multiple enlarged left axillary lymph nodes. For example left axillary lymph node measuring 18 x 12 by 12 mm on image 38 series 8 and image 143 series 18. Left axillary lymphadenopathy was not able to be appreciated on ultrasound from June 02, 2024, likely due to posterior depth of these lymph nodes. Left internal mammary lymphadenopathy also noted, for example left internal mammary lymph node measuring 14 x 14 mm on image 36 series 7. There is hyperenhancement and thickening of the medial left breast skin for example on image 42 series 15. This is worrisome for dermal invasion. The blood vessels supplying the left breast are asymmetrically enlarged in comparison to the right. Edema posterior to the biopsy-proven invasive ductal carcinoma abuts the left pectoralis musculature. No clear chest wall invasion identified. Right. The right breast has scattered fibroglandular tissue. There is mild background parenchymal enhancement. No suspicious mass or nonmass enhancement is seen. There is no axillary or internal mammary lymphadenopathy. Impression Biopsy-proven left upper inner quadrant invasive ductal carcinoma. Multiple similar appearing masses surrounding and in direct continuity with the primary malignancy concerning for satellite masses. Hyperenhancement and thickening of the superomedial left breast skin concerning for dermal invasion. Asymmetric enlargement of left breast vasculature in comparison to the right concerning for neovascularization. Left axillary and internal mammary lymphadenopathy concerning for metastatic disease. BI-RADS Category: 6 - Known Biopsy-Proven Malignancy. Recommendation Appropriate action recommended for the left breast biopsy proven invasive ductal carcinoma and additional findings as described above. The patient is already receiving surgical care. Oncologic consultation for consideration of neoadjuvant therapy is also recommended at this time. Resume annual screening mammography is recommended for the right breast. Screening breast MRI in 1 year is recommended for the right breast. 03/18/24: Result MAMMOGRAM DIAGNOSTIC KEN LEFT US BREAST LIMITED LEFT History Breast thickening Family medical history includes ovarian cancer in grandmother (paternal). Films Compared 01/16/2024 US BREAST LIMITED LEFT, 03/25/2023 US BREAST LIMITED LEFT, 03/25/2023 MAMMOGRAM DIAGNOSTIC LEFT, 03/14/2023 MAMMOGRAM SCREENING KEN BILATERAL, and 10/04/2019 MAMMOGRAM SCREENING KEN BILATERAL Findings Left MAMMOGRAM DIAGNOSTIC KEN LEFT/US BREAST LIMITED LEFT The left breast is heterogeneously dense, which may obscure small masses. The patient presents witharea of palpable concern left breast eleven o'clock which per the patient has enlarged in comparison to prior exam from January 16, 2024. Today's mammogram demonstrates interval increase in size of corresponding left breast eleven o'clock mass in comparison to mammogram from January 16, 2024. Targeted ultrasound demonstrates a corresponding cyst with internal debris left breast eleven o'clock 9 cm fromthe nipple measuring 26 x 25 x 25 mm, previously 16 x 14 x 15 mm on examination from January 16, 2024.This cyst appeared more simple on examination from January 16, 2024. Impression Area of palpable concern corresponds to left breast eleven o'clock inflamed cyst which has increased in size in comparison to mammogram from January 16, 2024. Conservative treatment with cold/warm compresses recommended. If the inflamed cyst persists an attempt at aspiration may be performed for symptomatic relief. BI-RADS Category: 2 - Benign. Recommendation Resume annual screening mammography is recommended for the left breast. Bilateral mammogram is due December 2024. FAMILY HISTORY: Family history of breast cancer: None Family history of ovarian cancer: None Family History Problem Relation Name Age of Onset Depression Mother No Known Problems Father No Known Problems Brother Heart attack Grandfather (Maternal) COD Diabetes Grandfather (Maternal) Ovarian cancer Grandmother (Paternal) 70 - 79 COD No Known Problems Daughter No Known Problems Daughter No Known Problems Daughter Dementia Grandmother (Maternal) Cirrhosis Other liver, ETOH+ Colon cancer Uncle (Maternal) 50 - 59 Ostemy Breast Cancer No significant family history PAST MEDICAL HISTORY: Past Medical History: Diagnosis Date Abnormal Papanicolaou smear of cervix and cervical HPV Malignant neoplasm of overlapping sites of left breast in female, estrogen receptor negative (HCC) 06/14/2024 Other anxiety states Varicella without complication PAST SURGICAL HISTORY: Past Surgical History: Procedure Laterality Date COLONOSCOPY, DIAGNOSTIC (RECTUM) 04/11/2023 hemorrhoids/recall 10 years/COLONOSCOPY FLEXIBLE PROXIMAL DIAGNOSTIC performed by Rajendra Leon MD at ENDOSCOPY [facility] COLPOSCPY CERVIX W/BX AND EC 1997,1998 INSER TUNN ACC DEV;5 YRS/OLDER Right 06/23/2024 INSERT TUNNELED CENTRAL VENOUS ACCESS WITH SUBQ PORT performed by Rubén Hou MD at OR [facility] SURGICAL PROCEDURE ONLY Left 05/27/2024 Aspiration on left breast by Dr. Fawn Lindsay. VAGINAL DELIVERY ONLY times 3 CURRENT OUTPATIENT PRESCRIPTIONS: Current Outpatient Medications Medication Sig Dispense Refill [...] No current facility-administered medications for this visit. ALLERGIES: Vancomycin SOCIAL HISTORY: Social History Tobacco Use Smoking status: Never Smokeless tobacco: Never Substance Use Topics Alcohol use: Yes Comment: once per month Vaping/E-Cigarette Use Vaping/E-Cigarette Use Never User Passive Exposure No Counseling Given? No Vaping/E-Cigarette Substances Nicotine No Other No Flavoring No THC No Cannabidiol (CBD) No Vaping/E-Cigarette Devices Disposable No Pre-filled or Refillable Cartridge No Refillable Tank No Pre-filled Pod No ROS: GEN: no weight loss, fever, fatigue HEENT: no changes in vision or hearing, no sinus problems, no sore throat, no hoarseness RESPIRATORY: no cough, wheezing, SOB or change in breathing CARDIOVASCULAR: no exertional chest pain, dyspnea, palpitations GI: no melena, hemetemesis, no vomiting or diarrhea : no dysuria, hematuria, frequency MUSCULOSKELETAL: no change in joint pains, no new arthritis PSYCHIATRIC: no significant anxiety or depression, unchanged sleep pattern HEME: no bleeding tendency, no clotting tendency NEURO: no significant headache, no seizures , no tremors SKIN: no new rashes, no itching PHYSICAL EXAMINATION Blood pressure 123/62, pulse 103, weight 96.2 kg (212 lb). Constitutional: alert, healthy Head: normocephalic, atraumatic Eyes: conjunctiva non-injected, sclera white Ears: pinna normal shape and color Neck: supple, no adenopathy Back: normal curvature Extremities: no edema Neuro: alert, gait normal, motor normal BREAST EXAMINATION: Right Breast: not rechecked today Right Breast: Masses noted: No Post XRT edema: No Post XRT erythema: No Other palpable abnormality: No Skin: Skin retraction: No Peau d'orange: No Telangectasia: No Scar(s) present: No Other changes: No Right Nipple: Nipple inversion: No Pagets: No Nipple discharge: No Right Lymph Nodes: Arm edema: No Palpable axillary adenopathy: No Palpable supraclavicular adenopathy: No Previous axillary incision: No Left Breast: ptotic mass Left Breast: Masses noted: No, prior large near 4 cm visible and palpable cyst in her left upper breast 11:00 12cm FN has now resolved completely Post XRT edema: No Post XRT erythema: No Other palpable abnormality: No Skin: Skin retraction: No Peau d'orange: No Telangectasia: No Scar(s) present: No Other changes: No Left Nipple: Nipple inversion: No Pagets: No Nipple discharge: No Left Lymph Nodes: Arm edema: No Palpable axillary adenopathy: No Palpable supraclavicular adenopathy: No Previous axillary incision: No ASSESSMENT: 48-year-old woman with a near 5.1 cm left breast triple negative cancer metastatic to axillary nodes and an internal mammary node, now in the midst of neoadjuvant chemotherapy with excellent response to chemotherapy. Genetic testing is negative for mutation. For her left breast, the MRIshowed multifocal disease with multiple tumors and she would be best served with a mastectomy. Her MRI scan does show her disease was very far posterior and she would be a candidate for a nipple sparing mastectomy oncologically. Will await plastic surgery opinion to see if she is a candidate for smile mastopexy. Explained how the nipple can be more sensitive to ischemia and thus, carries a risk of nipple necrosis or epidermolysis. We discussed that the ducts within the nipple are cored out and this tissue issent for frozen section. Possible sacrifice of the nipple may be necessary if cancer is seen in this tissue. We also reviewed that there is a loss of sensation/ arousal function of the nipple following this procedure. She is ultimately interested in REJI flaps. Reviewed the use of tissue broach operator. Will refer to plastic surgery again to discuss in more detail. She will require postmastectomy radiation therapy. We also discussed sentinel lymph node biopsy. Of note, imaging was consistent with metastatic axillary disease but a biopsy of the axilla was not performed. Will do frozen section and may need axillary clearance pending the result. Reviewed there is no benefit to contralateral prophylactic mastectomy.Will require continued imaging of the right breast if she preserves it. PLAN: Plastic surgery referral for final planning Left mastectomy, potentially nipple sparing, with left axillary sentinel node biopsy. Will plan on frozen section of axillary node with possible axillary dissection. Genetic testing was negative. Right breast normal on MRI scan. Has internal mammary met on the left. Will need postmastectomy XRT. I spent a total of 40-54 minutes (exact time 42 mins) on the date of service in preparation, delivery, and documentation of the care provided to Radha Fung excluding any time spent in the performance of separately billed services or time spent by another provider/QHP. Fawn Lindsay M.D. 09/14/2024 7:07 PM documented in this encounter Nursing Notes * Najma Coles MED ASSIST - 09/14/2024 3:25 PM EST Chief Complaint Patient presents with Follow Up Discuss surgery. Verified patient. documented in this encounter Plan of Treatment Upcoming Encounters Date Type Department Care Team (Late st Contact Info) Description 09/30/2024 7:30 AM EDT Laboratory Laboratory [facility] [address] [facility] [place] [id number] Rayna, Lab [address] [place] [address] 09/30/2024 8:30 AM EDT Office Visit Hematology/Oncology [facility] [address] [facility] [place] [id number] Ama Barksdale CRNP [address] [place] [address] 09/30/2024 9:00 AM EDT Hem/Onc Treatment [facility]/Oncology Treatment, [place] [address] [facility] [phone] Rayna, Chair 2 Hem Onc [address] [place] [address] Scheduled Procedures Name Priority Associated Diagnoses Date/Ti me COLONOSCOPY FLEXIBLE PROXIMAL DIAGNOSTIC Recall Screen for colon cancer Health Maintenance Due Date Last Done Comments Hepatitis B Vaccine (1 of 3 - 19+ 3-dose series) 1993 Cologuard 11/06/2019 Fecal Occult Blood Test 11/06/2019 Sigmoidoscopy 11/06/2019 COVID-19 Vaccine ( - 2023- season) 2024 Influenza Vaccine (FLU shot) (#1) [...] this encounter Medical Devices Implanted Type Area [employer] Employment Paralegal Device Identifier Shelf Expiration Date Model / Serial / Lot Mediport Power Mri 8fr [id number] - [id number] Implanted:Qty : 1 on 06/23/2024 by Rubén Hou MD at OR [facility] Right: Chest CR BARD : PERIPHERAL VASCULAR 06/19/2025 [id number] / / [id number] Port Implant W8f Poly Cath - [id number] Implanted:Qty : 1 on 06/23/2024 by Rubén Hou MD at OR [facility] CR BARD : PERIPHERAL VASCULAR [id number] 06/19/2025 [id number] / / [id number] documented as of this encounter Visit Diagnoses Diagnosis Malignant neoplasm of upper-inner quadrant of left breast in female, estrogen receptor negative (HCC)- Primary documented in this encounter Care Teams Cloth Drier Relationship Specialty Start Date End Date Gordon October Faye, EUGENIA [address] [place] [address] PCP - General Physician Life Science Research Assistant 05/10/24 documented as of this encounter
--- OUTSIDE RECORDS SUMMARY | 2024-10-09 06:31 | External Medical Summary ---
Author Name Unknown Address Unknown Organization K09:[facility] [address] [place] [address] Laboratory Report Ordering Provider Test Date Status JOCY DILL 09/08/2024 09:38:11 Final Observation Date Value Abnormality Reference (Units ) Status SYNC LEUKOCYTES IN BLOOD BY AUTOMATED COUNT 09/08/2024 09:38:11 9.26 4.00-10.80 (K/uL) Final Segs 09/08/2024 09:38:11 90.0 Above high normal 40.0-75.0 (%) Final Lymphs % 09/08/2024 09:38:11 8.2 Below low normal 18.0-42.0 (%) Final Monos 09/08/2024 09:38:11 1.5 1.0-11.0 (%) Final Eosinophils 09/08/2024 09:38:11 0.0 0.0-6.0 (%) Final Basos 09/08/2024 09:38:11 0.3 0.0-2.0 (%) Final Absolute Segs 09/08/2024 09:38:11 8.33 Above high normal 1.80-7.70 (K/uL) Final Lymphs, absolute 09/08/2024 09:38:11 0.76 Below low normal 1.00-4.80 (K/ul) Final Monos, Abs 09/08/2024 09:38:11 0.14 0.00-1.10 (K/uL) Final Eos, Abs 09/08/2024 09:38:11 0.00 0.00-0.70 (K/uL) Final Basos, Abs 09/08/2024 09:38:11 0.03 0.00-0.20 (K/uL) Final Performing Location [facility] [address] [place] [address]
--- OUTSIDE RECORDS SUMMARY | 2024-10-09 06:31 | External Medical Summary | Summary of Care ---
Author Name Unknown Organization [facility] Address [address] [place] [address] Phone [phone] Care Team Providers Care Puffer Tender Name Role Phone Jewell Leyva EUGENIA Primary Care Provider [phone] Reason for Visit * Reason Onset Date Comments Referral 09/09/2024 Encounter Details Date Type Department Care Team (Late st Contact Info) Description 09/09/2024 Telephone General Surgery, [place] [address] [place] [address] Services, [facility] [address] [place] [address] Referral Allergies Active Allergy Reactions Criticality Noted [...] 1 08/14/2023 Food insecurity 05/31/2024 Overview: Per [facility] Protocol ASCUS with positive high [...] encounter Miscellaneous Notes * Telephone Encounter - Matilda Segura LPN - 09/09/2024 8:14 AM EST Referral from: Shannon KABA Consult: Breast Surgery, Dr. Lindsay For: "Surgery to be completed after chemotherapy in 12 weeks" Referral received as detailed above. Noted that patient is current/active with Dr. Lindsay, most recently seen in 06/2024. As this is a return patient, will notify dept of referral so they may facilitate appropriate scheduling. Chrissy Segura LPN Intake Nurse Navigator General Surgery and Breast Clinic [facility] documented in this encounter Plan of Treatment Upcoming Encounters Date Type Department Care Team (Late st Contact Info) Description 09/09/2024 4:15 PM EST Immunization/Injecti on Hematology/Oncology Treatment, [address], [place] [phone] Rayna, Chair 2 Hem Onc [address] [place] [address] 09/30/2024 7:30 AM EDT Laboratory Laboratory [facility] [address] [place] [phone] Rayna Lab [address] [place], [place] [address] 09/30/2024 8:30 AM EDT Office Visit Hematology/Oncology [address] [place] [phone] Ama Barksdlae CRNP [address] [place] [address] 09/30/2024 9:00 AM EDT Hem/Onc Treatment Hematology/Oncology Treatment, [address], [place] [phone] Rayna, Chair 2 Hem Onc [address] [place], [place] [address] Scheduled Procedures Name Priority Associated Diagnoses Date/Ti me COLONOSCOPY FLEXIBLE PROXIMAL DIAGNOSTIC Recall Screen for colon cancer Health Maintenance Due Date Last Done Comments Hepatitis B Vaccine (1 of 3 - 19+ 3-dose series) 1993 Cologuard 11/06/2019 Fecal Occult Blood Test 11/06/2019 Sigmoidoscopy 11/06/2019 COVID-19 Vaccine (2023- season) 2024 Influenza Vaccine (FLU shot) (#1) 2024 Lipid Panel 08/26/2024 08/26/2019 Mammogram 03/18/2025 03/18/2024, 0803/2024, 01/16/2024, Additional history exists Depression Monitoring 05/17/2025 [...] this encounter Medical Devices Implanted Type Area Para Educator Device Identifier Shelf Expiration Date Model / Serial / Lot Mediport Power Mri 8fr [id number] - [id number] Implanted:Qty : 1 on 06/23/2024 by Rubén Hou MD at OR [facility] Right: Chest CR BARD : PERIPHERAL VASCULAR 06/19/2025 [id number] / / [id number] Port Implant W8f Poly Cath - [id number] Implanted:Qty : 1 on 06/23/2024 by Rubén Hou MD at OR [facility] CR BARD : PERIPHERAL VASCULAR [id number] 06/19/2025 [id number] / / [id number] documented as of this encounter Care Teams Puffer Tender Relationship Specialty Start Date End Date GordonOctober EUGENIA Mckinney [address] [place] [address] PCP - General Physician Technologies Division Chair 05/10/24 documented as of this encounter
--- OUTSIDE RECORDS SUMMARY | 2024-10-09 06:31 | External Medical Summary | Summary of Care ---
Author Name Unknown Organization [facility] Address [address] [place] [address] Phone [phone] Care Team Providers Care Dough Mixing Machine Operator Name Role Phone Jewell Leyva EUGENIA Primary Care Provider [phone] Reason for Visit * Reason Onset Date Comments Dustless Operator Documentation 09/24/2024 Jose Edge Encounter Details Date Type Department Care Team (Late st Contact Info) Description 09/24/2024 Telephone Hematology Oncology, [place] [address] [facility] [address] [place] [address] Tony Hensley LSW [address] [place] [address] Dustless Operator Documentation (Financial G... Allergies Active Allergy Reactions Criticality Noted Date Comments Vancomycin Low 03/16/2022 documented as of this encounter (statuses as of 09/24/2024) Medications MULTIVITAMINS PO TABS one a day [...] as of this encounter (statuses as of 09/24/2024) Active Problems Problem Noted Date Diagnosed Date Dehydration 07/05/2024 Malignant neoplasm of overla pping sites of left breast in female, estrogen receptor negative 06/14/2024 Encounter for antineoplastic chemotherapy 2023 Prevention of chemotherapy-induced neutropenia 1 08/14/2023 Food insecurity 05/31/2024 Overview: Per [facility] Protocol ASCUS with positive high risk HPV cervical 06/04 Major depressive disorder, r ecurrent severe without psychotic features 04/10/2023 Major depressive disorder, single episode, moder ate 06/07/2021 Encounter for other general counseling or advice on contraception 04/27/2010 Overview (04/20/2024): ICD-10 update of inactive term documented as of this encounter (statuses as of 09/24/2024) Resolved Problems Problem Noted Date Diagnosed Date Resolved Date Current mild episode of chente r depressive disorder without prior episode 08/19/2018 4 ABN PAP SMEAR-CERVIX 999 Encounter for supervision of other normal 05/28/2016 Overview (11/21/2015): ICD-10 update of inactive term documented as of this encounter (statuses as of 09/24/2024) Immunizations Name Administration Dates Next Due TD [...] encounter Miscellaneous Notes * Telephone Encounter - Tony Hensley LSW - 09/24/2024 1:27 PM EST SW submitted the application for the [employer] Financial Assistance tyrel for Ms. Fung. Services provided include: Care Coordination Jzaz/Financial Assistance Follow-up Calls and Visits Rodríguez Winters, [employer] Construction Services Technician [facility] Hematology/Oncology [place] Office: [phone] [place] Office: [phone] E-mail: [email or web address] documented in this encounter Plan of Treatment Upcoming Encounters Date Type Department Care Team (Late st Contact Info) Description 09/30/2024 7:30 AM EDT Laboratory Laboratory [facility] [address] [place] [phone] Rayna, Lab [facility] [address] [facility] [place] [address] 09/30/2024 8:30 AM EDT Office Visit Hematology/Oncology [facility] [place] [address] [place] [phone] Ama Barksdale CRNP [address] [place] [address] 09/30/2024 9:00 AM EDT Hem/Onc Treatment Hematology/Oncology [facility], [place] [address] [facility] [phone] Rayna, Chair 2 Hem Onc [facility] [address] [facility] [place] [address] 10/18/2024 9:00 AM EDT [facility] [address] [place], [place] [phone] Pratik Quinn MD [address] [place] [address] Scheduled Procedures Name Priority Associated Diagnoses Date/Ti [...] this encounter Medical Devices Implanted Type Area Sex Therapist Device Identifier Shelf Expiration Date Model / Serial / Lot Mediport Power Mri 8fr [id number] - [id number] Implanted:Qty : 1 on 06/23/2024 by Rubén Hou MD at OR [facility] Right: Chest CR BARD : PERIPHERAL VASCULAR 06/19/2025 [id number] / / [id number] Port Implant W8f Poly Cath - [id number] Implanted:Qty : 1 on 06/23/2024 by Rubén Hou MD at OR [facility] CR BARD : PERIPHERAL VASCULAR [id number] 06/19/2025 [id number] / / [id number] documented as of this encounter Care Teams Dough Mixing Machine Operator Relationship Specialty Start Date End Date Jewell Leyva PA-C [address] [place] [address] PCP - General Physician Traveling Crane Operator 05/10/24 documented as of this encounter
--- OUTSIDE RECORDS SUMMARY | 2024-10-09 06:31 | External Medical Summary | Summary of Care ---
Author Name Unknown Organization [facility] Address [address] [facility] [address] Phone [phone] Care Team Providers Care Stopping Builder Name Role Phone Jewell Leyva Faye BELLO Primary Care Provider [phone] Reason for Visit * Reason Comments Chemotherapy C2D1 Keytruda, Carbo platin, Taxol * Episode Based Medications (Routine) - Authorized Specialty Diagnoses / Procedures Referred By Contyesica t Referred To Contact Diagnoses Malignant neoplasm of overlapping sites of left breast in female, estrogen receptor negative (HCC) Encounter for antineoplastic chemotherapy Prevention of chemotherapy-induced neutropenia Procedures MO DOXORUBIC HCL 10 MG VL CHEMO MO CARBOPLATIN INJECTION MO FOSAPREPITANT INJECTION MO INJ PEMBROLIZUMAB MO INJECTION, FULPHILA MO INJ, FILGRASTIM G-CSF 1MCG MO PACLITAXEL INJECTION MO INJ CYCLOPHOSPHAMD ARMINOMEDCelia Munroe MD Hematology/Oncology Treatment, [address] [address] Phone: tel: fax: Referral ID Status Reason Start Date Expiration Date V isits Requested Visits Authorized [id number] Authorized 07/28/2024 12/18/2024 [id number] Encounter Details Date Type Department Care Team (Latest Contact Info) Description 07/28/2024 11:30 AM EST Hem/Onc Treatment Hematology/Oncolog y Treatment, [address] [phone] Rayna, Chair 6 Hem Onc [address] [place] [address] Malignant neoplasm of overlapping sites of left breast in female, estrogen receptor negative (HCC)*; Encounter for antineoplastic chemotherapy; Prevention of chemotherapy-induced neutropenia Allergies Active Allergy Reactions Criticality Noted Date Comments Vancomycin Low 03/16/2022 documented as of this encounter (statuses as of 09/01/2024) Medications MULTIVITAMINS PO TABS one a day [...] 24 Active OLANZapine 10 MG Oral Tablet (zyPREXA)Indicatio ns:Malignant neoplasm of overlapping sites of left breast in female, estrogen receptor negative (HCC),Encounter for antineoplastic chemotherapy,Preve ntion of chemotherapy-induc ed neutropenia Take 1 Tablet by mouth at bedtime for 4 days. On days 1, 2, 3, and 4 of chemo. 16 Tablet 06/15/20 24 025 Discontin ued(Refil l) documented as of this encounter (statuses as of 09/01/2024) Active Problems Problem Noted Date Diagnosed Date [...] as of this encounter (statuses as of 09/01/2024) Resolved Problems Problem Noted Date Diagnosed Date Resolved Date Current mild episode of chente r depressive disorder without prior episode 08/19/2018 4 ABN PAP SMEAR-CERVIX 999 Encounter for supervision of other normal 05/28/2016 Overview (11/21/2015): ICD-10 update of inactive term documented as of this encounter (statuses as of 09/01/2024) Immunizations Name Administration Dates Next Due TD [...] as of this encounter Nursing Notes * Sulema Youngblood RN - 07/28/2024 5:00 PM EST Goals: Patient will remain free from injury. Possible barriers to meeting goals: ambulation with IV pole Stability of the patient: Moderately stable - low risk of patient condition declining or worsening Summary regarding today's goals: Met: patient without injury during treatment today. Pt tolerated ordered meds well. No complaints. Discharged in stable condition. * Sulema Youngblood RN - 07/28/2024 2:38 PM EST Chair 8 Pt here for C2D1 Keytruda, Carboplatin, Taxol. No complaints. Pt seen today by Koki Ramos NP. See office visit note. Chemotherapy/Immunotherapy agents: CARBOPLATIN, KEYTRUDA, and TAXOL Consent for chemotherapy drug treatment complete, dated, and signed? yes, date - 06/14/24 Treatment lab parameters met? Yes Has treatment weight changed > than 10%? No Treatment preauthorized? Yes VITALS Filed Vitals: BP Readings from Last 2 Encounters: 07/28/24 134/84 07/15/24 112/78 Pulse Readings from Last 2 Encounters: 07/28/24 93 07/15/24 96 Resp Readings from Last 2 Encounters: 07/05/24 18 06/28/24 18 SpO2 Readings from Last 2 Encounters: 07/28/24 94% 07/15/24 95% Temp Readings from Last 2 Encounters: 07/28/24 36.8 C (98.2 F) (Tympanic) 07/15/24 36.6 C (97.8 F) (Tympanic) Urine protein: N/A Patient education completed for treatment? Yes Blood transfusion consent signed and complete? NA Return appointment scheduled? Yes Patient had provider visit today? Yes - Ok to release order and treat per provider Functional Status: Functional status at today's visit: Restricted in physically strenuous activity but ambulatory and able to carry out work on a light orsedentary nature, e.g. light house work, office work The drug name, dose, infusion volume, rate [...] Care Team (Late st Contact Info) Description 09/08/2024 9:30 AM EST Laboratory Laboratory [facility] [address] [facility] [place] [phone] [place], [address] [facility] [address] [place] [address] 09/08/2024 10:00 AM EST Office Visit Hematology/Oncology [facility] [address] [facility] [place] [phone] Shannon Ramos, SENDY [address] [facility] [place] [address] 09/08/2024 10:45 AM EST Hem/Onc Treatment Hematology/Oncology Treatment, [place] [address] [place] [phone] [place], Chair 2 Hem [facility]c [facility] [address] [facility] [place] [address] Scheduled Procedures Name Priority Associated Diagnoses Date/Ti [...] 07/23, 12/21/2015, Additional history exists Diabetes Screening 08/18/2027 08/18/2024, 0 07/28/2024, 07/19/2024, Additional history exists Cervical Cancer Screening 06/04/2028 [...] this encounter Medical Devices Implanted Type Area Radio Performer Device Identifier Shelf Expiration Date Model / Serial / Lot Mediport Power Mri 8fr [id number] - [id number] Implanted:Qty : 1 on 06/23/2024 by Rubén Hou MD at OR [facility] Right: Chest CR BARD : PERIPHERAL VASCULAR 06/19/2025 [id number] / / [id number] Port Implant W8f Poly Cath - [id number] Implanted:Qty : 1 on 06/23/2024 by Rubén Huo MD at OR [facility] CR BARD : PERIPHERAL VASCULAR [id number] 06/19/2025 [id number] / / [id number] documented as of this encounter Visit Diagnoses [...] PROTECT FROM LIGHT, ONCE, 1 dose, On Fri07/28/24 at 1500Indications:Malignant neoplasm of overlapping sites of left breast in female, estrogen receptor negative (HCC),Encounter for antineoplastic chemotherapy,Prevention of chemotherapy-induced neutropenia Start Infusion 07/28/2024 4:20 PM EST 693 mg 510 mL/hr diphenhydrAMINE (Benadryl) cap 25 mg 25 mg, Oral, ONCE, On Fri07/28/24 at 1300, For 1 doseIndications:Malignant neoplasm of overlapping sites of left breast in female, estrogen receptor negative (HCC),Encounter for antineoplastic chemotherapy,Prevention of chemotherapy-induced neutropenia Given 07/28/2024 12:11 PM EST 25 mg Famotidine (Pepcid) tab 20 mg 20 mg, Oral, ONCE, On Fri07/28/24 at 1300, For 1 doseIndications:Malignant neoplasm of overlapping sites of left breast in female, estrogen receptor negative (HCC),Encounter for antineoplastic chemotherapy,Prevention of chemotherapy-induced neutropenia Given 07/28/2024 12:11 PM EST 20 mg Fosaprepitant Dimeglumine (Emend) 150 mg, ondansetron (Zofran) 16 mg, dexamethasone sodium phosphate 12 mg in NSS 250 mL Infusion 150 mg, IV Piggyback, ONCE, 1 dose, On Fri07/28/24 at 1300, Administer over 30 Minutes, Infuse over 30 minutes. Give 30 minutes prior to chemotherapy.Indications:M alignant neoplasm of overlapping sites of left breast in female, estrogen receptor negative (HCC),Encounter for antineoplastic chemotherapy,Prevention of chemotherapy-induced neutropenia Start Infusion 07/28/2024 11:50 AM EST 150 mg 538.4 mL/hr hEParin 100 UNIT/ML Lock Flush inj 500 Units 500 Units (5 mL), IV Lock, PRN Other, IV Flush, Starting on Fri07/28/24 at 1146, Until Fri07/28/24 at 2102, For 24 hours, Do not flush if lock, PICC, or central line not in place; IV infusing or unable to flush.Indications:Malignan t neoplasm of overlapping sites of left breast in female, estrogen receptor negative (HCC),Encounter for antineoplastic chemotherapy,Prevention of chemotherapy-induced neutropenia Given 07/28/2024 4:56 PM EST 500 Units NSS infusion Intravenous, at 50 mL/hr, PRN, Starting on Fri07/28/24 at 1300, Until Fri07/28/24 at 2102, Maintenance lineIndications:Malignant neoplasm of overlapping sites of left breast in female, estrogen receptor negative (HCC),Encounter for antineoplastic chemotherapy,Prevention of chemotherapy-induced neutropenia Start Infusion 07/28/2024 11:48 AM EST 50 mL/hr PACLitaxel (Taxol) 368 mg in NSS 500 mL infusion 368 mg (rounded from 367.5 mg = 175 mg/m2 2.1 m2 Treatment Plan BSA from Recorded weight), IV Piggyback, ONCE, 1 dose, On Fri07/28/24 at 1400, Administer over 3 Hours, Administer through 0.22 micron low protein binding filter!Indications:Maligna nt neoplasm of overlapping sites of left breast in female, estrogen receptor negative (HCC),Encounter for antineoplastic chemotherapy,Prevention of chemotherapy-induced neutropenia Start Infusion 07/28/2024 1:17 PM EST 368 mg 170 mL/hr Pembrolizumab (Keytruda) 200 mg in NSS 100 mL infusion 200 mg, IV Piggyback, ONCE, 1 dose, On Fri07/28/24 at 1330, Administer over 30 Minutes, Infuse through 0.2 micron filter.Indications:Maligna nt neoplasm of overlapping sites of left breast in female, estrogen receptor negative (HCC),Encounter for antineoplastic chemotherapy,Prevention of chemotherapy-induced neutropenia Start Infusion 07/28/2024 12:28 PM EST 200 mg 226 mL/hr sodium chloride 0.9 % flush central line 10 mL 10 mL, IV Push, PRN Other, IV Flush, Starting on Fri07/28/24 at 1146, Until Fri07/28/24 at 2102, For 24 hours, Do not flush if lock, PICC, or central line not in place; IV infusing or unable to flush.Indications:Malignan t neoplasm of overlapping sites of left breast in female, estrogen receptor negative (HCC),Encounter for antineoplastic chemotherapy,Prevention of chemotherapy-induced neutropenia Given 07/28/2024 4:56 PM EST 10 mL documented in this encounter Care Teams Stopping Builder Relationship Specialty Start Date End Date Gordon October Faye, SAPNAC [address] [place] [address] [place] [address] PCP - General Physician Digital Sales Representative 05/10/24 documented as of this encounter
--- OUTSIDE RECORDS SUMMARY | 2024-10-09 06:31 | External Medical Summary ---
Author Name Unknown Address Unknown Organization [id number]:[facility] [address] [place] [address] Laboratory Report Ordering Provider Test Date Status JOCY DILL 09/08/2024 09:38:11 Final Observation Date Value Abnormality Reference (Units ) Status BUN 09/08/2024 09:38:11 17 6-20 (mg/dL) Final Creatinine 09/08/2024 09:38:11 0.7 0.5-1.0 (mg/dL) Final Glomerular filtration rate/1.73 sq M.predicted [Volume Rate/Area] in Serum, Plasma or Blood by Creatinine-based formula (CKD-EPI) 09/08/2024 09:38:11 >90 >=60 (mL/min) Final eGFR is calculated based on the CKD-EPI 2020 equation. Sodium 09/08/2024 09:38:11 143 135-146 (m mol/L) Final Potassium 09/08/2024 09:38:11 4.1 3.5-5.1 (m mol/L) Final Cl 09/08/2024 09:38:11 102 98-107 (mm ol/L) Final CO2 09/08/2024 09:38:11 27 22-32 (mmo l/L) Final Anion gap 09/08/2024 09:38:11 14 7-15 (mmol /L) Final Glucose 09/08/2024 09:38:11 148 Above high normal 70 -120 (mg/dL) Final Albumin 09/08/2024 09:38:11 4.8 3.8-5.0 (g /dL) Final AST (Aspartate aminotransferase) 09/08/2024 09:38:11 26 10-35 (U/L) Fin al Alk Phos 09/08/2024 09:38:11 126 35-130 (U/ L) Final Bilirubin, Total 09/08/2024 09:38:11 0.4 <=1 .2 (mg/dL) Final Calcium 09/08/2024 09:38:11 9.8 8.4-10.2 ( mg/dL) Final Protein 09/08/2024 09:38:11 7.8 6.0-8.3 (g /dL) Final ALT (Alanine aminotransferase) 09/08/2024 09:38:11 73 Above high normal 10-35 (U/L) Final Performing Location [facility] [address] [place] [address]
--- OUTSIDE RECORDS SUMMARY | 2024-10-09 06:31 | External Medical Summary ---
Author Name Unknown Address Unknown Organization [id number] [place] [address] [place] [address] Laboratory Report Ordering Provider Test Date Status JOCY DILL 09/08/2024 09:38:11 Final Observation Date Value Abnormality Reference (Units ) Status TSH 09/08/2024 09:38:11 0.47 0.27-4.20 (uIU/mL) Final Performing Location [facility] [place] [address] [place] [address]
--- OUTSIDE RECORDS SUMMARY | 2024-10-09 06:31 | External Medical Summary ---
Author Name Unknown Address Unknown Organization K09[facility] [address] [address] Laboratory Report Ordering Provider Test Date Status JOCY DILL 09/08/2024 09:38:11 Final Observation Date Value Abnormality Reference (Units ) Status WBC, Total 09/08/2024 09:38:11 9.26 4.00-10.8 0 (K/uL) Final RBC 09/08/2024 09:38:11 3.97 3.85-5.15 (M/uL) Final Hemoglobin 09/08/2024 09:38:11 12.8 12.0-15.3 (g/dL) Final HCT 09/08/2024 09:38:11 38.7 36.0-45.2 (%) Final MCV 09/08/2024 09:38:11 97.5 81.5-97.5 (fL) Final MCH 09/08/2024 09:38:11 32.2 27.0-34.0 (pg) Final MCHC 09/08/2024 09:38:11 33.1 32.0-36.0 (g/dL) Final RDW 09/08/2024 09:38:11 16.6 11.5-15.5 (%) Final Platelets 09/08/2024 09:38:11 189 140-400 (K /uL) Final MPV 09/08/2024 09:38:11 9.5 6.6-11.1 ( fL) Final Performing Location [facility] [place] [address]
--- OUTSIDE RECORDS SUMMARY | 2024-10-09 06:31 | External Medical Summary | Summary of Care ---
Author Name Unknown Organization [facility] Address [address] [place] [facility] [place] [address] Phone [phone] Care Team Providers Care Cuff Turner Machine Operator Name Role Phone Jewell Leyva Faye BELLO Primary Care Provider [phone] Reason for Visit * Reason Comments Medication Administration Fulphila * Episode Based Medications (Routine) - Authorized Specialty Diagnoses / Procedures Referred By Jacobo lo Referred To Contact Diagnoses Malignant neoplasm of overlapping sites of left breast in female, estrogen receptor negative (HCC) Encounter for antineoplastic chemotherapy Prevention of chemotherapy-induced neutropenia Procedures [place] DOXORUBIC HCL 10 MG VL CHEMO [place] CARBOPLATIN INJECTION [place] FOSAPREPITANT INJECTION [place] INJ PEMBROLIZUMAB [place] INJECTION, FULPHILA [place] INJ, FILGRASTIM G-CSF 1MCG [place] PACLITAXEL INJECTION [place] INJ CYCLOPHOSPHAMD Celia Ma MD Hematology/Oncology Treatment, [address] [place] [address] Phone: tel: fax: Referral ID Status Reason Start Date Expiration Date V isits Requested Visits Authorized [id number] Authorized 07/28/2024 12/18/2024 999 [id number] Encounter Details Date Type Department Care Team (Latest Contact Info) Description 09/09/2024 4:15 PM EST Immunization/ Injection Hematology/Oncology Treatment, [address] [place] [address] Rayna, Chair 2 Hem Onc [address] [address] Malignant neoplasm of overlapping sites of left breast in female, estrogen receptor negative (HCC)*; Encounter for antineoplastic chemotherapy; Prevention of chemotherapy-induced neutropenia Allergies Active Allergy Reactions Criticality Noted Date Comments Vancomycin Low 03/16/2022 documented as of this encounter (statuses as of 09/10/2024) Medications MULTIVITAMINS PO TABS one a day [...] as of this encounter (statuses as of 09/10/2024) Active Problems Problem Noted Date Diagnosed Date Dehydration 07/05/2024 Malignant neoplasm of overla pping sites of left breast in female, estrogen receptor negative 06/14/2024 Encounter for antineoplastic chemotherapy 2023 Prevention of chemotherapy-induced neutropenia 1 08/14/2023 Food insecurity 05/31/2024 Overview: Per [facility] Protocol ASCUS with positive high risk HPV cervical 06/04 Major depressive disorder, r ecurrent severe without psychotic features 04/10/2023 Major depressive disorder, single episode, moder ate 06/07/2021 Encounter for other general counseling or advice on contraception 04/27/2010 Overview (04/20/2024): ICD-10 update of inactive term documented as of this encounter (statuses as of 09/10/2024) Resolved Problems Problem Noted Date Diagnosed Date Resolved Date Current mild episode of chente r depressive disorder without prior episode 08/19/2018 4 ABN PAP SMEAR-CERVIX 999 Encounter for supervision of other normal 05/28/2016 Overview (11/21/2015): ICD-10 update of inactive term documented as of this encounter (statuses as of 09/10/2024) Immunizations Name Administration Dates Next Due TD [...] 3:30 PM EST Office Visit General Surgery, [facility] [address] [facility] [place] [address] Fawn Lindsay MD [address] [facility] [place] [address] 09/30/2024 7:30 AM EDT Laboratory Laboratory [facility] [place] [address] [facility] [place] [phone] Rayna Lab [address] [facility] [place] [address] 09/30/2024 8:30 AM EDT Office Visit Hematology/Oncology [facility] [place] [address] [facility] [place] [phone] Ama Barksdale CRNP [address] [facility] [place] [address] 09/30/2024 9:00 AM EDT Hem/Onc Treatment Hematology/Oncology [facility], [place] [address] [facility] [place] [phone] Rayna, Chair 2 Hem Onc [facility] [address] [facility] [place] [address] Scheduled Procedures Name Priority Associated Diagnoses Date/Ti [...] this encounter Medical Devices Implanted Type Area Assembler 1St Shift Device Identifier Shelf Expiration Date Model / Serial / Lot Mediport Power Mri 8fr [id number] - [id number] Implanted:Qty : 1 on 06/23/2024 by Rubén Hou MD at OR [facility] Right: Chest CR BARD : PERIPHERAL VASCULAR 06/19/2025 [id number] / / [id number] Port Implant W8f Poly Cath - [id number] Implanted:Qty : 1 on 06/23/2024 by Rubén Hou MD at OR [facility] CR BARD : PERIPHERAL VASCULAR [id number] 06/19/2025 [id number] / / [id number] documented as of this encounter Visit Diagnoses [...] Upper documented in this encounter Care Teams Cuff Turner Machine Operator Relationship Specialty Start Date End Date Jewell Leyva PA-C [address] [facility] [place] [address] PCP - General Physician Flatwork Catcher 05/10/24 documented as of this encounter
--- OUTSIDE RECORDS SUMMARY | 2024-10-09 06:31 | External Medical Summary | Summary of Care ---
Author Name Unknown Organization [facility] Address [address] [place] [address] Phone [phone] Care Team Providers Care Paving Plant Operator Name Role Phone Jewell Leyva EUGENIA Primary Care Provider [phone] Reason for Visit * Reason Onset Date Comments Surgery 09/16/2024 Encounter Details Date Type Department Care Team (Late st Contact Info) Description 09/16/2024 Telephone Plastic Surgery, [place] [address] [place], [place] [phone] Pratik Quinn MD [address] [place] [address] Surgery Allergies Active Allergy Reactions Criticality Noted Date Comments Vancomycin Low 03/16/2022 documented as of this encounter (statuses as of 09/16/2024) Medications MULTIVITAMINS PO TABS one a day [...] 25 Active Gabapentin 100 MG Oral Capsule (Neurontin)Everetttio ns:Neuropathy due to chemotherapeutic drug (HCC) Take 1 Capsule by mouth at bedtime. 30 Capsule 1 09/08/19 25 Active documented as of this encounter (statuses as of 09/16/2024) Active Problems Problem Noted Date Diagnosed Date Dehydration 07/05/2024 Malignant neoplasm of overla pping sites of left breast in female, estrogen receptor negative 06/14/2024 Encounter for antineoplastic chemotherapy 2023 Prevention of chemotherapy-induced neutropenia 1 08/14/2023 Food insecurity 05/31/2024 Overview: Per [facility] Protocol ASCUS with positive high risk HPV cervical 06/04 Major depressive disorder, r ecurrent severe without psychotic features 04/10/2023 Major depressive disorder, single episode, moder ate 06/07/2021 Encounter for other general counseling or advice on contraception 04/27/2010 Overview (04/20/2024): ICD-10 update of inactive term documented as of this encounter (statuses as of 09/16/2024) Resolved Problems Problem Noted Date Diagnosed Date Resolved Date Current mild episode of chente r depressive disorder without prior episode 08/19/2018 4 ABN PAP SMEAR-CERVIX 999 Encounter for supervision of other normal 05/28/2016 Overview (11/21/2015): ICD-10 update of inactive term documented as of this encounter (statuses as of 09/16/2024) Immunizations Name Administration Dates Next Due TD [...] encounter Miscellaneous Notes * Telephone Encounter - Carlene Elmore OSA - 09/16/2024 10:33 AM EST PC to confirm OR date 01/13, pt accepted OR date. Will need H&P appt after consult with Plastics Provider. documented in this encounter Plan of Treatment Upcoming Encounters Date Type Department Care Team (Late st Contact Info) Description 09/30/2024 7:30 AM EDT Laboratory Laboratory [address] [place] [address] [place] [phone] [address] [place], [place] [address] 09/30/2024 8:30 AM EDT Office Visit Hematology/Oncology [facility] Rayna [place] [address] [place], [place] [phone] Ama Barksdale CRNP [address] [place] [address] 09/30/2024 9:00 AM EDT Hem/Onc Treatment Hematology/Oncology Treatment, [place] [address] [place] [phone] Rayna, Chair 2 Hem Onc [facility] [address] [place] [address] 10/18/2024 9:00 AM EDT [facility] [address] [place] [address] Pratik Quinn MD [address] [place] [address] Scheduled Procedures Name Priority Associated Diagnoses Date/Ti [...] this encounter Medical Devices Implanted Type Area Supply Crib Attendant Device Identifier Shelf Expiration Date Model / Serial / Lot Mediport Power Mri 8fr [id number] - [id number] Implanted:Qty : 1 on 06/23/2024 by Rubén Hou MD at OR [facility] Right: Chest CR BARD : PERIPHERAL VASCULAR 06/19/2025 [id number] / / [id number] Port Implant W8f Poly Cath - [id number] Implanted:Qty : 1 on 06/23/2024 by Rubén Hou MD at OR [facility] CR BARD : PERIPHERAL VASCULAR [id number] 06/19/2025 [id number] / / [id number] documented as of this encounter Care Teams Paving Plant Operator Relationship Specialty Start Date End Date Jewell Leyva PA-C [address] [place] [address] PCP - General Physician Guard Supervisor 05/10/24 documented as of this encounter
--- OUTSIDE RECORDS SUMMARY | 2024-10-09 06:31 | External Medical Summary ---
Author Name Unknown Address Unknown Organization K09:[facility] [place] [place] [address] Laboratory Report Ordering Provider Test Date Status JOCY DILL 09/08/2024 09:38:11 Final Observation Date Value Abnormality Reference (Units ) Status Nucleated erythrocytes/100 leukocytes [Ratio] in Blood by Automated count 09/08/2024 09:38:11 Final Variant lymphocytes [Presence] in Blood by Light microscopy 09/08/2024 09:38:11 Present Abnormal None Seen Final Performing Location [facility] [place] [address]
--- OUTSIDE RECORDS SUMMARY | 2024-10-09 06:31 | External Medical Summary | Summary of Care ---
Author Name Unknown Organization [facility] Address [address] [place] [address] Phone [phone] Care Team Providers Care Vocational Childcare Teacher Name Role Phone Gordon October EUGENIA Primary Care Provider Reason for Visit * Reason Comments Outpatient Testing Encounter Details Date Type Department Care Team (Late st Contact Info) Description 09/08/2024 9:30 AM EST Laboratory Laboratory [facility] [address] [place] [phone] [facility] [address] [place] [address] Malignant neoplasm of overlapping sites of left breast in female, estrogen receptor negative (HCC) Allergies Active Allergy Reactions Criticality Noted Date Comments Vancomycin Low 03/16/2022 documented as of this encounter (statuses as of 09/08/2024) Medications MULTIVITAMINS PO TABS one a day [...] of chemo. 20 Tablet 08/18/19 25 025 Discontin ued(Refil l) documented as of this encounter (statuses as of 09/08/2024) Active Problems Problem Noted Date Diagnosed Date Dehydration 07/05/2024 Malignant neoplasm of overla pping sites of left breast in female, estrogen receptor negative 06/14/2024 Encounter for antineoplastic chemotherapy 2023 Prevention of chemotherapy-induced neutropenia 1 08/14/2023 Food insecurity 05/31/2024 Overview: Per [facility] Protocol ASCUS with positive high risk HPV cervical 06/04 Major depressive disorder, r ecurrent severe without psychotic features 04/10/2023 Major depressive disorder, single episode, moder ate 06/07/2021 Encounter for other general counseling or advice on contraception 04/27/2010 Overview (04/20/2024): ICD-10 update of inactive term documented as of this encounter (statuses as of 09/08/2024) Resolved Problems Problem Noted Date Diagnosed Date Resolved Date Current mild episode of chente r depressive disorder without prior episode 08/19/2018 4 ABN PAP SMEAR-CERVIX 999 Encounter for supervision of other normal 05/28/2016 Overview (11/21/2015): ICD-10 update of inactive term documented as of this encounter (statuses as of 09/08/2024) Immunizations Name Administration Dates Next Due TD [...] as of this encounter Plan of Treatment Pending Results Name Type Priority Associated Diagnoses Date /Time TSH WITH FREE T4 IF INDICATED Lab STAT Malignant neoplasm of overlapping sites of left breast in female, estrogen receptor negative (HCC) 09/08/2024 9:38 AM EST Scheduled Procedures Name Priority Associated Diagnoses Date/Ti [...] this encounter Medical Devices Implanted Type Area Metal Extrusion Supervisor Device Identifier Shelf Expiration Date Model / Serial / Lot Mediport Power Mri 8fr [id number] - [id number] Implanted:Qty : 1 on 06/23/2024 by Rubén Hou MD at OR [facility] Right: Chest CR BARD : PERIPHERAL VASCULAR 06/19/2025 [id number] / / [id number] Port Implant W8f Poly Cath - [id number] Implanted:Qty : 1 on 06/23/2024 by Rubén Huo MD at OR [facility] CR BARD : PERIPHERAL VASCULAR [id number] 06/19/2025 [id number] / / [id number] documented as of this encounter Procedures Procedure Name Priority Date/Time Associated Diagnosis Comments DIFFERENTIAL, AUTOMATED STAT 09/08/2024 9:38 AM EST Malignant neoplasm of overlapping sites of left breast in female, estrogen receptor negative (HCC) COMPREHENSIVE METABOLIC PANEL STAT 09/08/2024 9:38 AM EST Malignant neoplasm of overlapping sites of left breast in female, estrogen receptor negative (HCC) CBC STAT 09/08/2024 9:38 AM EST Malignant neoplasm of overlapping sites of left breast in female, estrogen receptor negative (HCC) CBC STAT 09/08/2024 9:38 AM EST Malignant neoplasm of overlapping sites of left breast in female, estrogen receptor negative (HCC) DIFFERENTIAL, TECHNOLOGIST REVIEW Routine 09/08/2024 9:38 AM EST Malignant neoplasm of overlapping sites of left breast in female, estrogen receptor negative (HCC) documented in this encounter Results * (ABNORMAL) DIFFERENTIAL, TECHNOLOGIST REVIEW (09/08/2024 9:38 AM EST) Pathologist [facility] 09/08/2024 10:06 AM [facility] 56-02 Reactive Lymphocytes Present(A ) None Seen 09/08/2024 10:06 AM [facility] 56-02 Blood Venous blood specimen / Unknown Venipuncture / Unknown 09/08/2024 9:38 AM EST 09/08/2024 9:38 AM EST Darryn Fong MD LAB BLOOD ORDERABLES Final Res ult [facility] [address]- [address] [place], [place] [phone] * (ABNORMAL) DIFFERENTIAL, AUTOMATED (09/08/2024 9:38 AM EST) Pathologist [facility] WBC 9.26 4.00 - 10.80 K/uL 09/08/2024 10:06 AM EST [facility] 56-02 Neutrophils % 90.0(H) 40.0 - 75.0 % 09/08/2024 10:06 AM EST [facility] 56-02 Lymphocytes % 8.2(L) 18.0 - 42.0 % 09/08/2024 10:06 AM [facility] 56-02 Monocytes % 1.5 1.0 - 11.0 % 09/08/2024 10:06 AM [facility] 56-02 Eosinophils % 0.0 0.0 - 6.0 % 09/08/2024 10:06 AM [facility] 56-02 Basophils % 0.3 0.0 - 2.0 % 09/08/2024 10:06 AM [facility] 56-02 Absolute Neutrophils 8.33(H) 1.80 - 7.70 K/uL 09/08/2024 10:06 AM [facility] 56-02 Absolute Lymphocytes 0.76(L) 1.00 - 4.80 K/ul 09/08/2024 10:06 AM [facility] 56- Absolute Monocytes 0.14 0.00 - 1.10 K/uL 09/08/2024 10:06 AM [facility] 56-02 Absolute Eosinophils 0.00 0.00 - 0.70 K/uL 09/08/2024 10:06 AM [facility] 56-02 Absolute Basophils 0.03 0.00 - 0.20 K/uL 09/08/2024 10:06 AM [facility] 56-02 Blood Venous blood specimen / Unknown Venipuncture / Unknown 09/08/2024 9:38 AM EST 09/08/2024 9:38 AM EST us Darryn Fong MD LAB BLOOD ORDERABLES Final Res ult [facility] 56-02 [address] [place] [address] * CBC (09/08/2024 9:38 AM EST) WBC 9.26 4.00 - 10.80 K/uL 09/08/2024 10:06 AM [facility] 56- RBC 3.97 3.85 - 5.15 M/uL 09/08/2024 10:06 AM [facility] 56-02 HGB 12.8 12.0 - 15.3 g/dL 09/08/2024 10:06 AM [facility] 56 HCT 38.7 36.0 - 45.2 % 09/08/2024 10:06 AM [facility] 56- MCV 97.5 81.5 - 97.5 fL 09/08/2024 10:06 AM [facility] 56- MCH 32.2 27.0 - 34.0 pg 09/08/2024 10:06 AM [facility] 56 MCHC 33.1 32.0 - 36.0 g/dL 09/08/2024 10:06 AM [facility] 56 RDW 16.6 11.5 - 15.5 % 09/08/2024 10:06 AM [facility] 56- PLT 189 140 - 400 K/uL 09/08/2024 10:06 AM [facility] 56- MPV 9.5 6.6 - 11.1 fL 09/08/2024 10:06 AM [facility] 56 Blood Venous blood specimen / Unknown Venipuncture / Unknown 09/08/2024 9:38 AM EST 09/08/2024 9:38 AM EST us Darryn Fong MD LAB BLOOD ORDERABLES Final Res ult [facility] [address] [place] [address] * (ABNORMAL) COMPREHENSIVE METABOLIC PANEL (09/08/2024 9:38 AM EST) BUN 17 6 - 20 mg/dL 09/08/2024 10:02 AM [facility] 56 CREATININE 0.7 0.5 - 1.0 mg/dL 09/08/2024 10:02 AM [facility] 56- EGFR >90 >=60 mL/min 09/08/2024 10:02 AM [facility] 56 Comment:eGFR is calculated b ased on the CKD-EPI 2020 equation. SODIUM 143 135 - 146 mmol/L 09/08/2024 10:02 AM [facility] 56- POTASSIUM 4.1 3.5 - 5.1 mmol/L 09/08/2024 10:02 AM [facility] 56-02 CHLORIDE 102 98 - 107 mmol/L 09/08/2024 10:02 AM [facility] 56-02 CO2 27 22 - 32 mmol/L 09/08/2024 10:02 AM [facility] 56-02 ANION GAP 14 7 - 15 mmol/L 09/08/2024 10:02 AM [facility] 56-02 GLUCOSE 148(H) 70 - 120 mg/dL 09/08/2024 10:02 AM [facility] 56-02 Albumin 4.8 3.8 - 5.0 g/dL 09/08/2024 10:02 AM [facility] 56-02 AST 26 10 - 35 U/L 09/08/2024 10:02 AM [facility] 56-02 Alkaline Phosphatase 126 35 - 130 U/L 09/08/2024 10:02 AM [facility] 56-02 Bilirubin, Total 0.4 <=1.2 mg/dL 09/08/2024 10:02 AM [facility] 56-02 CALCIUM 9.8 8.4 - 10.2 mg/dL 09/08/2024 10:02 AM [facility] 56-02 Protein 7.8 6.0 - 8.3 g/dL 09/08/2024 10:02 AM [facility] 56-02 ALT 73(H) 10 - 35 U/L 09/08/2024 10:02 AM [facility] 56-02 Blood Venous blood specimen / Unknown Venipuncture / Unknown 09/08/2024 9:38 AM EST 09/08/2024 9:38 AM EST us Darryn Fong MD LAB BLOOD ORDERABLES Final Res ult [facility] [address] [place] [address] documented in this encounter Visit Diagnoses Diagnosis Malignant neoplasm of overlapping sites of left breast in female, estrogen receptor negative (HCC) documented in this encounter Care Teams Vocational Childcare Teacher Relationship Specialty Start Date End Date Gordon October EUGENIA Mckinney [address] [facility] [place] [address] PCP - General Physician Head Of Drama 05/10/24 documented as of this encounter
--- OUTSIDE RECORDS SUMMARY | 2024-10-09 06:31 | External Medical Summary | Summary of Care ---
Author Name Unknown Organization [facility] Address [address] [facility] [address] Phone [phone] Care Team Providers Care Fish Tender Name Role Phone Jewell Leyva Faye BELLO Primary Care Provider [phone] Reason for Visit * Reason Comments Chemotherapy C4/D1 - Taxol, Carbo * Episode Based Medications (Routine) - Authorized Specialty Diagnoses / Procedures Referred By Contyesica t Referred To Contact Diagnoses Malignant neoplasm of overlapping sites of left breast in female, estrogen receptor negative (HCC) Encounter for antineoplastic chemotherapy Prevention of chemotherapy-induced neutropenia Procedures [place] DOXORUBIC HCL 10 MG VL CHEMO [place] CARBOPLATIN INJECTION MI FOSAPREPITANT INJECTION MI INJ PEMBROLIZUMAB MI INJECTION, FULPHILA MI INJ, FILGRASTIM G-CSF 1MCG [place] PACLITAXEL INJECTION MI INJ CYCLOPHOSPHAMD [facility] Celia Beard MD Hematology/Oncology Treatment, [address] [place] [address] Phone: tel: fax: Referral ID Status Reason Start Date Expiration Date V isits Requested Visits Authorized [id number] Authorized 07/28/2024 12/18/2024 999 [id number] Encounter Details Date Type Department Care Team (Latest Contact Info) Description 09/08/2024 10:45 AM EST Hem/Onc Treatment Hematology/Oncolog y Treatment, [address] [place] [address] Rayna, Chair 2 Hem Onc [address] [address] Malignant neoplasm of overlapping sites of left [...] 4:15 PM EST Immunization/Injecti on Hematology/Oncology Treatment, [address] [place] [phone] Rayna, Chair 2 Hem Onc [address] [place] [address] 09/30/2024 7:30 AM EDT Laboratory Laboratory [facility] [address] [place] [phone] Rayna, Lab [address] [place] [address] 09/30/2024 8:30 AM EDT Office Visit Hematology/Oncology [facility] [address] [place] [phone] Ama Barksdale, SENDY [address] [place] [address] 09/30/2024 9:00 AM EDT Hem/Onc Treatment Hematology/Oncology Treatment, [address] [place] [phone] Rayna, Chair 2 Hem Onc [address] [place] [address] Scheduled Procedures Name Priority Associated Diagnoses Date/Ti [...] this encounter Medical Devices Implanted Type Area Clinical Unit Coordinator Device Identifier Shelf Expiration Date Model / Serial / Lot Mediport Power Mri 8fr [id number] - [id number] Implanted:Qty : 1 on 06/23/2024 by Rubén Hou MD at [facility] Right: Chest CR BARD : PERIPHERAL VASCULAR 06/19/2025 [id number] / / [id number] Port Implant W8f Poly Cath - [id number] Implanted:Qty : 1 on 06/23/2024 by Rubén Hou MD at OR [facility] CR BARD : PERIPHERAL VASCULAR [id number] 06/19/2025 [id number] / / [id number] documented as of this encounter Visit Diagnoses [...] mL documented in this encounter Care Teams Fish Tender Relationship Specialty Start Date End Date October EUGENIA Mckinney [address] [place] [address] PCP - General Physician Library Manager 05/10/24 documented as of this encounter
--- OUTSIDE RECORDS SUMMARY | 2024-10-09 06:32 | External Medical Summary | Summary of Care ---
Author Name Unknown Organization [facility] Address [address] [facility] [address] Phone [phone] Care Team Providers Care Core Analysis Operator Name Role Phone Jewell Leyva Faye BELLO Primary Care Provider [phone] Reason for Visit * Reason Comments Medication Administration Fulphila 6mg = 0.6mL * Episode Based Medications (Routine) - Authorized Specialty Diagnoses / Procedures Referred By Contyesica t Referred To Contact Diagnoses Malignant neoplasm of overlapping sites of left breast in female, estrogen receptor negative (HCC) Encounter for antineoplastic chemotherapy Prevention of chemotherapy-induced neutropenia Procedures VA DOXORUBIC HCL 10 MG VL CHEMO VA CARBOPLATIN INJECTION VA FOSAPREPITANT INJECTION VA INJ PEMBROLIZUMAB VA INJECTION, FULPHILA VA INJ, FILGRASTIM G-CSF 1MCG VA PACLITAXEL INJECTION VA INJ CYCLOPHOSPHAMD Celia Ma MD Hematology/Oncology Treatment, [address] [place] [address] Phone: tel: fax: Referral ID Status Reason Start Date Expiration Date V isits Requested Visits Authorized [id number] Authorized 07/28/2024 12/18/2024 999 99 Encounter Details Date Type Department Care Team (Latest Contact Info) Description 08/19/2024 4:00 PM EST Immunization/ Injection Hematology/Oncology Treatment, [address] [place] [address] Rayna, Chair 8 Hem On[address] [address] Malignant neoplasm of overlapping sites of left breast in female, estrogen receptor negative (HCC)*; Encounter for antineoplastic chemotherapy; Prevention of chemotherapy-induced neutropenia Allergies Active Allergy Reactions Criticality Noted Date Comments Vancomycin Low 03/16/2022 documented as of this encounter (statuses as of 08/28/2024) Medications MULTIVITAMINS PO TABS one a day [...] 4 of chemo. 20 Tablet 08/18/19 25 Active documented as of this encounter (statuses as of 08/28/2024) Active Problems Problem Noted Date Diagnosed Date [...] as of this encounter (statuses as of 08/28/2024) Resolved Problems Problem Noted Date Diagnosed Date Resolved Date Current mild episode of chente r depressive disorder without prior episode 08/19/2018 4 ABN PAP SMEAR-CERVIX 999 Encounter for supervision of other normal 05/28/2016 Overview (11/21/2015): ICD-10 update of inactive term documented as of this encounter (statuses as of 08/28/2024) Immunizations Name Administration Dates Next Due TD [...] Nursing Notes * Anny Tao LPN - 08/19/2024 4:05 PM EST Fulphila 6mg = 0.6mL administered SQ into the right upper extremity. Patient tolerated injection. documented in this encounter Plan of Treatment Upcoming Encounters Date Type Department Care Team (Late st Contact Info) Description 09/08/2024 9:30 AM EST Laboratory Laboratory [facility] [address] [place] [phone] Rayna, Lab [address] [facility] [place] [address] 09/08/2024 10:00 AM EST Office Visit Hematology/Oncology [facility] [place] [address] [place] [phone] Shannon Ramos, SENDY [address] [place] [address] [place] [address] 09/08/2024 10:45 AM EST Hem[facility] [address] [place] [phone] Rayna, Chair 2 Hem Onc [facility] [address] [facility] [place] [address] Scheduled Procedures Name Priority Associated Diagnoses Date/Ti [...] this encounter Medical Devices Implanted Type Area Sorting Livestock Worker Device Identifier Shelf Expiration Date Model / Serial / Lot Mediport Power Mri 8fr [id number] - [id number] Implanted:Qty : 1 on 06/23/2024 by Rubén Hou MD at OR [facility] Right: Chest CR BARD : PERIPHERAL VASCULAR 06/19/2025 [id number] / / [id number] Port Implant W8f Poly Cath - [id number] Implanted:Qty : 1 on 06/23/2024 by Rubén Hou MD at OR [facility] CR BARD : PERIPHERAL VASCULAR [id number] 06/19/2025 [id number] / / [id number] documented as of this encounter Visit Diagnoses [...] mg 6 mg, Subcutaneous, ONCE, On Yudi 08/19/24 at 1645, For 1 doseIndications:Malignant neoplasm of overlapping sites of left breast in female, estrogen receptor negative (HCC),Encounter for antineoplastic chemotherapy,Prevention of chemotherapy-induced neutropenia Given 08/19/2024 4:02 PM EST 6 mg Arm Right Upper documented in this encounter Care Teams Core Analysis Operator Relationship Specialty Start Date End Date Gordon October Faye, PAMarielaC [address] [place], [place] [address] PCP - General Physician Membership Administrator 05/10/24 documented as of this encounter
--- OUTSIDE RECORDS SUMMARY | 2024-10-09 06:32 | External Medical Summary | Summary of Care ---
Author Name Unknown Organization [facility] Address [address] [facility] [address] Phone [phone] Care Team Providers Care Brooch Maker Novelty Name Role Phone Jewell Leyva Faye BELLO Primary Care Provider [phone] Reason for Visit * Reason Comments Chemotherapy Keytruda/Taxol/Carbo * Episode Based Medications (Routine) - Authorized Specialty Diagnoses / Procedures Referred By Contyesica t Referred To Contact Diagnoses Malignant neoplasm of overlapping sites of left breast in female, estrogen receptor negative (HCC) Encounter for antineoplastic chemotherapy Prevention of chemotherapy-induced neutropenia Procedures PA DOXORUBIC HCL 10 MG VL CHEMO PA CARBOPLATIN INJECTION PA FOSAPREPITANT INJECTION PA INJ PEMBROLIZUMAB PA INJECTION, FULPHILA PA INJ, FILGRASTIM G-CSF 1MCG PA PACLITAXEL INJECTION PA INJ CYCLOPHOSPHAMD AUROMEDIC Celia Beard MD Hematology/Oncology Treatment, [address] [place] [address] Phone: tel: fax: Referral ID Status Reason Start Date Expiration Date V isits Requested Visits Authorized [id number] Authorized 07/28/2024 12/18/2024 999 99 Encounter Details Date Type Department Care Team (Latest Contact Info) Description 08/18/2024 11:00 AM EST Hem/Onc Treatment Hematology/Oncolog y Treatment, [address] [place] [address] Rayna, Chair 1 Hem Onc [address] [address] Malignant neoplasm of overlapping sites of left [...] as of this encounter Nursing Notes * Rakel Mujica, RN - 08/18/2024 4:13 PM EST Pt completed treatment without issues. VAD flushed with 10 ml NSS and Heparin 5 ml (100 units/ml). Cristina needle removed intact. Goals: Pt will remain free from injury. Possible barriers to meeting goals: ambulation with IV pole Stability of the patient: Moderately stable - low risk of patient condition declining or worsening Summary regarding today's goals: Met: . Pt remained free from injury during treatment today. Discharged in stable condition. * Rakel Mujica RN - 08/18/2024 11:36 AM EST Chair 3 Chemotherapy/Immunotherapy agents: CARBOPLATIN, KEYTRUDA, and TAXOL Consent for chemotherapy drug treatment complete, dated, and signed? yes, date - 06/14/24 Treatment lab parameters met? Yes Has treatment weight changed > than 10%? No Treatment preauthorized? Yes VITALS Filed Vitals: BP Readings from Last 2 Encounters: 08/18/24 125/73 07/28/24 134/84 Pulse Readings from Last 2 Encounters: 08/18/24 106 07/28/24 93 Resp Readings from Last 2 Encounters: 07/05/24 18 06/28/24 18 SpO2 Readings from Last 2 Encounters: 08/18/24 94% 07/28/24 94% Temp Readings from Last 2 Encounters: 08/18/24 36.8 C (98.3 F) (Tympanic) 07/28/24 36.8 C (98.2 F) (Tympanic) Urine protein: N/A Patient education completed for treatment? Yes Blood transfusion consent signed and complete? NA Return appointment scheduled? Yes Patient had provider visit today? Yes - Ok to release order and treat per provider VAD accessed; NSS infusing. Safety and Risk for Injury Patient will remain free from injury. Ensure appropriate safety devices are available. Provide and maintain safe environment. Functional Status: Functional status at today's visit: [...] potential pitts while using the heat function. documented in this encounter Plan of Treatment Upcoming Encounters Date Type Department Care Team (Late st Contact Info) Description 09/08/2024 9:30 AM EST Laboratory Laboratory [facility] [address] [place] [phone] [place], Lab Scenery 200 [facility] [place] [address] 09/08/2024 10:00 AM EST Office Visit Hematology/Oncology [facility] [place] 200 [facility] [place] [phone] Shannon Ramos CRNP [address] [place] [address] [place] [address] 09/08/2024 10:45 AM EST Hem/Onc Treatment Hematology/Oncology Treatment, [place] [address] [place] [phone] Rayna, Chair 2 Hem Onc [facility] 200 [facility] [place] [address] Scheduled Procedures Name Priority Associated Diagnoses Date/Ti [...] this encounter Medical Devices Implanted Type Area Medical Terminologist Device Identifier Shelf Expiration Date Model / Serial / Lot Mediport Power Mri 8fr [id number] - [id number] Implanted:Qty : 1 on 06/23/2024 by Rubén Hou MD at OR [facility] Right: Chest CR BARD : PERIPHERAL VASCULAR 06/19/2025 [id number] / / [id number] Port Implant W8f Poly Cath - [id number] Implanted:Qty : 1 on 06/23/2024 by Rubén Hou MD at OR [facility] CR BARD : PERIPHERAL VASCULAR [id number] 06/19/2025 [id number] / / [id number] documented as of this encounter Visit Diagnoses [...] PROTECT FROM LIGHT, ONCE, 1 dose, On Fri08/18/24 at 1400Indications:Malignant neoplasm of overlapping sites of left breast in female, estrogen receptor negative (HCC),Encounter for antineoplastic chemotherapy,Prevention of chemotherapy-induced neutropenia Start Infusion 08/18/2024 3:26 PM EST 693 mg 510 mL/hr diphenhydrAMINE (Benadryl) cap 25 mg 25 mg, Oral, ONCE, On Fri08/18/24 at 1200, For 1 doseIndications:Malignant neoplasm of overlapping sites of left breast in female, estrogen receptor negative (HCC),Encounter for antineoplastic chemotherapy,Prevention of chemotherapy-induced neutropenia Given 08/18/2024 11:08 AM EST 25 mg Famotidine (Pepcid) tab 20 mg 20 mg, Oral, ONCE, On Fri08/18/24 at 1200, For 1 doseIndications:Malignant neoplasm of overlapping sites of left breast in female, estrogen receptor negative (HCC),Encounter for antineoplastic chemotherapy,Prevention of chemotherapy-induced neutropenia Given 08/18/2024 11:08 AM EST 20 mg Fosaprepitant Dimeglumine (Emend) 150 mg, ondansetron (Zofran) 16 mg, dexamethasone sodium phosphate 12 mg in NSS 250 mL Infusion 150 mg, IV Piggyback, ONCE, 1 dose, On Fri08/18/24 at 1200, Administer over 30 Minutes, Infuse over 30 minutes. Give 30 minutes prior to chemotherapy.Indications:M alignant neoplasm of overlapping sites of left breast in female, estrogen receptor negative (HCC),Encounter for antineoplastic chemotherapy,Prevention of chemotherapy-induced neutropenia Start Infusion 08/18/2024 11:42 AM EST 150 mg 538.4 mL/hr hEParin 100 UNIT/ML Lock Flush inj 500 Units 500 Units (5 mL), IV Lock, PRN Other, IV Flush, Starting on Fri08/18/24 at 1051, Until Fri08/18/24 at 2016, For 24 hours, Do not flush if lock, PICC, or central line not in place; IV infusing or unable to flush.Indications:Malignan t neoplasm of overlapping sites of left breast in female, estrogen receptor negative (HCC),Encounter for antineoplastic chemotherapy,Prevention of chemotherapy-induced neutropenia Given 08/18/2024 3:58 PM EST 500 Units NSS infusion Intravenous, at 50 mL/hr, PRN, Starting on Fri08/18/24 at 1200, Until Fri08/18/24 at 2016, Maintenance lineIndications:Malignant neoplasm of overlapping sites of left breast in female, estrogen receptor negative (HCC),Encounter for antineoplastic chemotherapy,Prevention of chemotherapy-induced neutropenia Start Infusion 08/18/2024 10:54 AM EST 50 mL/hr PACLitaxel (Taxol) 368 mg in NSS 500 mL infusion 368 mg (rounded from 367.5 mg = 175 mg/m2 2.1 m2 Treatment Plan BSA from Recorded weight), IV Piggyback, ONCE, 1 dose, On Fri08/18/24 at 1300, Administer over 3 Hours, Administer through 0.22 micron low protein binding filter!Indications:Maligna nt neoplasm of overlapping sites of left breast in female, estrogen receptor negative (HCC),Encounter for antineoplastic chemotherapy,Prevention of chemotherapy-induced neutropenia Start Infusion 08/18/2024 12:23 PM EST 368 mg 170 mL/hr Pembrolizumab (Keytruda) 200 mg in NSS 100 mL infusion 200 mg, IV Piggyback, ONCE, 1 dose, On Fri08/18/24 at 1230, Administer over 30 Minutes, Infuse through 0.2 micron filter.Indications:Maligna nt neoplasm of overlapping sites of left breast in female, estrogen receptor negative (HCC),Encounter for antineoplastic chemotherapy,Prevention of chemotherapy-induced neutropenia Start Infusion 08/18/2024 11:05 AM EST 200 mg 226 mL/hr sodium chloride 0.9 % flush central line 10 mL 10 mL, IV Push, PRN Other, IV Flush, Starting on Fri08/18/24 at 1051, Until Fri08/18/24 at 2016, For 24 hours, Do not flush if lock, PICC, or central line not in place; IV infusing or unable to flush.Indications:Malignan t neoplasm of overlapping sites of left breast in female, estrogen receptor negative (HCC),Encounter for antineoplastic chemotherapy,Prevention of chemotherapy-induced neutropenia Given 08/18/2024 3:58 PM EST 10 mL documented in this encounter Care Teams Brooch Maker Novelty Relationship Specialty Start Date End Date GordonOctober EUGENIA Mckinney 200 [facility] [place] [address] PCP - General Physician Deputy Sheriff Generalist 05/10/24 documented as of this encounter
--- OUTSIDE RECORDS SUMMARY | 2024-10-09 06:32 | External Medical Summary | Summary of Care ---
Author Name Unknown Organization [facility] Address [address] [facility] [address] Phone [phone] Care Team Providers Care Electric Motor Winder Name Role Phone Jewell Leyva Faye BELLO Primary Care Provider [phone] Reason for Visit * Reason Comments Chemotherapy [...] 1MCG [place] PACLITAXEL INJECTION [place] INJ CYCLOPHOSPHAMD ARMINOMEDCelia Munroe MD Hematology/Oncology Treatment, [address] [address] Phone: tel: fax: Referral ID Status Reason Start Date Expiration Date V isits Requested Visits Authorized [id number] Authorized 07/28/2024 12/18/2024 999 99 Encounter Details Date Type Department Care Team (Latest Contact Info) Description 07/28/2024 11:30 AM EST Hem/Onc Treatment Hematology/Oncolog y Treatment, [address] [address] Rayna, Chair 6 Hem Onc [address] [place] [address] Malignant neoplasm of overlapping sites of left [...] Description 09/08/2024 9:30 AM EST Laboratory Laboratory [facility] [address] [facility] [place] [phone] [place], Lab Scenery [address] [facility] [place] [address] 09/08/2024 10:00 AM EST Office Visit Hematology/Oncology [facility] [address] [facility] [place] [phone] Shannon Ramos, SENDY [address] [facility] [place] [address] 09/08/2024 10:45 AM EST Hem/Onc Treatment Hematology/Oncology Treatment, [place] [address] [place] [phone] [place], Chair 2 Hem Onc [facility] [address] [facility] [place] [address] Scheduled Procedures Name Priority Associated Diagnoses Date/Ti [...] this encounter Medical Devices Implanted Type Area Fuel Retrofitting Technician Device Identifier Shelf Expiration Date Model / Serial / Lot Mediport Power Mri 8fr [id number] - [id number] Implanted:Qty : 1 on 06/23/2024 by Rubén Hou MD at OR [facility] Right: Chest CR BARD : PERIPHERAL VASCULAR 06/19/2025 [id number] / / [id number] Port Implant W8f Poly Cath - [id number] Implanted:Qty : 1 on 06/23/2024 by Rubén Hou MD at OR [facility] CR BARD : PERIPHERAL VASCULAR [id number] 06/19/2025 [id number] / / [id number] documented as of this encounter Visit Diagnoses [...] mL documented in this encounter Care Teams Electric Motor Winder Relationship Specialty Start Date End Date Gordon October Faye, SAPNAC [address] [place] [address] [place] [address] PCP - General Physician Director Of Personnel 05/10/24 documented as of this encounter
--- OUTSIDE RECORDS SUMMARY | 2024-10-09 06:32 | External Medical Summary | Summary of Care ---
Author Name Unknown Organization [facility] Address [address] [facility] [address] Phone [phone] Care Team Providers Care Stack Clerk Name Role Phone Jewell Leyva Faye BELLO Primary Care Provider [phone] Reason for Visit * Reason Comments Chemotherapy Keytruda/Taxol/Carbo * Episode Based Medications (Routine) - Authorized Specialty Diagnoses / Procedures Referred By Contyesica t Referred To Contact Diagnoses Malignant neoplasm of overlapping sites of left breast in female, estrogen receptor negative (HCC) Encounter for antineoplastic chemotherapy Prevention of chemotherapy-induced neutropenia Procedures TX DOXORUBIC HCL 10 MG VL CHEMO TX CARBOPLATIN INJECTION TX FOSAPREPITANT INJECTION TX INJ PEMBROLIZUMAB TX INJECTION, FULPHILA TX INJ, FILGRASTIM G-CSF 1MCG TX PACLITAXEL INJECTION TX INJ CYCLOPHOSPHAMD AUROMEDIC Celia Beard MD Hematology/Oncology Treatment, [address] [place] [address] Phone: tel: fax: Referral ID Status Reason Start Date Expiration Date V isits Requested Visits Authorized [id number] Authorized 07/28/2024 12/18/2024 999 99 Encounter Details Date Type Department Care Team (Latest Contact Info) Description 08/18/2024 11:00 AM EST Hem/Onc Treatment Hematology/Oncolog y Treatment, [address] [place] [address] Rayna, Chair 1 Hem Onc [address] [address] Malignant neoplasm of overlapping sites of left [...] Description 09/08/2024 9:30 AM EST Laboratory Laboratory [facility] [address] [place] [phone] [place], Lab Scenery 200 [facility] [place] [address] 09/08/2024 10:00 AM EST Office Visit Hematology/Oncology [facility] [place] 200 [facility] [place] [phone] Shannon Ramos CRNP [address] [place] [address] [place] [address] 09/08/2024 10:45 AM EST Hem/Onc Treatment Hematology/Oncology Treatment, [place] [address] [place] [phone] Rayna, Chair 2 Hem Onc [facility] 200 [facility] [place] [address] Scheduled Procedures Name Priority Associated Diagnoses Date/Ti [...] this encounter Medical Devices Implanted Type Area Radiophone Operator Device Identifier Shelf Expiration Date Model / Serial / Lot Mediport Power Mri 8fr [id number] - [id number] Implanted:Qty : 1 on 06/23/2024 by Rubén Hou MD at OR [facility] Right: Chest CR BARD : PERIPHERAL VASCULAR 06/19/2025 [id number] / / [id number] Port Implant W8f Poly Cath - [id number] Implanted:Qty : 1 on 06/23/2024 by Rubén Hou MD at OR [facility] CR BARD : PERIPHERAL VASCULAR [id number] 06/19/2025 [id number] / / [id number] documented as of this encounter Visit Diagnoses [...] mL documented in this encounter Care Teams Stack Clerk Relationship Specialty Start Date End Date GordonOctober EUGENIA Mckinney 200 [facility] [place] [address] PCP - General Physician Head Transfer Clerk 05/10/24 documented as of this encounter
--- OUTSIDE RECORDS SUMMARY | 2024-10-09 06:32 | External Medical Summary | Summary of Care ---
Author Name Unknown Organization [facility] Address [address] [facility] [address] Phone [phone] Care Team Providers Care Sheriff Sergeant Name Role Phone Jewell Leyva Faye BELLO Primary Care Provider [phone] Reason for Visit * Reason Comments Chemotherapy C2D1 Keytruda, Carbo platin, Taxol * Episode Based Medications (Routine) - Authorized Specialty Diagnoses / Procedures Referred By Contyesica t Referred To Contact Diagnoses Malignant neoplasm of overlapping sites of left breast in female, estrogen receptor negative (HCC) Encounter for antineoplastic chemotherapy Prevention of chemotherapy-induced neutropenia Procedures MD DOXORUBIC HCL 10 MG VL CHEMO MD CARBOPLATIN INJECTION MD FOSAPREPITANT INJECTION MD INJ PEMBROLIZUMAB MD INJECTION, FULPHILA MD INJ, FILGRASTIM G-CSF 1MCG MD PACLITAXEL INJECTION MD INJ CYCLOPHOSPHAMD ARMINOMEDCelia Munroe MD Hematology/Oncology Treatment, [address] [address] Phone: tel: fax: Referral ID Status Reason Start Date Expiration Date V isits Requested Visits Authorized [id number] Authorized 07/28/2024 12/18/2024 999 99 Encounter Details Date Type Department Care Team (Latest Contact Info) Description 07/28/2024 11:30 AM EST Hem/Onc Treatment Hematology/Oncolog y Treatment, [address] [address] Rayna, Chair 6 Hem Onc [address] [place] [address] Malignant neoplasm of overlapping sites of left [...] Description 09/08/2024 9:30 AM EST Laboratory Laboratory [facility] 200 [facility] [place] [phone] [place], Lab Scenery 200 [facility] [place] [address] 09/08/2024 10:00 AM EST Office Visit Hematology/Oncology [facility] 200 [facility] [place] [phone] Shannon Ramos, SENDY 400 [place] [address] 09/08/2024 10:45 AM EST Hem/Onc Treatment Hematology/Oncology Treatment, Counselor [address] [place] [phone] [place], Chair 2 Hem Onc [facility] 200 [facility] [place] [address] Scheduled Procedures Name Priority Associated Diagnoses Date/Ti [...] this encounter Medical Devices Implanted Type Area Associate Scientist Device Identifier Shelf Expiration Date Model / Serial / Lot Mediport Power Mri 8fr [id number] - [id number] Implanted:Qty : 1 on 06/23/2024 by Rubén Hou MD at OR [facility] Right: Chest CR BARD : PERIPHERAL VASCULAR 06/19/2025 [id number] / / [id number] Port Implant W8f Poly Cath - [id number] Implanted:Qty : 1 on 06/23/2024 by Rubén Hou MD at OR [facility] CR BARD : PERIPHERAL VASCULAR [id number] 06/19/2025 [id number] / / [id number] documented as of this encounter Visit Diagnoses [...] mL documented in this encounter Care Teams Sheriff Sergeant Relationship Specialty Start Date End Date Gordon October Faye, SAPNAC [address] [place] [address] [place] [address] PCP - General Physician Burlap Bag Sewer 05/10/24 documented as of this encounter
--- OUTSIDE RECORDS SUMMARY | 2024-10-09 06:32 | External Medical Summary | Summary of Care ---
Author Name Unknown Organization [facility] Address [address] [facility] [address] Phone [phone] Care Team Providers Care Track Service Worker Name Role Phone Jewell Leyva Faye BELLO Primary Care Provider [phone] Reason for Visit * Reason Comments Chemotherapy Keytruda/Taxol/Carbo * Episode Based Medications (Routine) - Authorized Specialty Diagnoses / Procedures Referred By Contyesica t Referred To Contact Diagnoses Malignant neoplasm of overlapping sites of left breast in female, estrogen receptor negative (HCC) Encounter for antineoplastic chemotherapy Prevention of chemotherapy-induced neutropenia Procedures RI DOXORUBIC HCL 10 MG VL CHEMO RI CARBOPLATIN INJECTION RI FOSAPREPITANT INJECTION RI INJ PEMBROLIZUMAB RI INJECTION, FULPHILA RI INJ, FILGRASTIM G-CSF 1MCG RI PACLITAXEL INJECTION RI INJ CYCLOPHOSPHAMD AUROMEDIC Celia Beard MD Hematology/Oncology Treatment, [address] [place] [address] Phone: tel: fax: Referral ID Status Reason Start Date Expiration Date V isits Requested Visits Authorized [id number] Authorized 07/28/2024 12/18/2024 999 99 Encounter Details Date Type Department Care Team (Latest Contact Info) Description 08/18/2024 11:00 AM EST Hem/Onc Treatment Hematology/Oncolog y Treatment, [address] [place] [address] Rayna, Chair 1 Hem Onc [address] [address] Malignant neoplasm of overlapping sites of left [...] Description 09/08/2024 9:30 AM EST Laboratory Laboratory [facility] [address] [place] [phone] [place], Lab Scenery 200 [facility] [place] [address] 09/08/2024 10:00 AM EST Office Visit Hematology/Oncology [facility] [place] 200 [facility] [place] [phone] Shannon Ramos CRNP [address] [place] [address] [place] [address] 09/08/2024 10:45 AM EST Hem/Onc Treatment Hematology/Oncology Treatment, [place] [address] [place] [phone] Rayna, Chair 2 Hem Onc [facility] [address] [facility] [place] [address] Scheduled Procedures Name Priority Associated Diagnoses Date/Ti [...] this encounter Medical Devices Implanted Type Area Multi Line Claims Adjuster Device Identifier Shelf Expiration Date Model / Serial / Lot Mediport Power Mri 8fr [id number] - [id number] Implanted:Qty : 1 on 06/23/2024 by Rubén Hou MD at OR [facility] Right: Chest CR BARD : PERIPHERAL VASCULAR 06/19/2025 [id number] / / [id number] Port Implant W8f Poly Cath - [id number] Implanted:Qty : 1 on 06/23/2024 by Rubén Hou MD at OR [facility] CR BARD : PERIPHERAL VASCULAR [id number] 06/19/2025 [id number] / / [id number] documented as of this encounter Visit Diagnoses [...] mL documented in this encounter Care Teams Track Service Worker Relationship Specialty Start Date End Date GordonOctober EUGENIA Mckinney [address] [facility] [place] [address] PCP - General Physician Welfare Specialist 05/10/24 documented as of this encounter
--- OUTSIDE RECORDS SUMMARY | 2024-10-09 06:32 | External Medical Summary | Summary of Care ---
Author Name Unknown Organization [facility] Address [address] [facility] [address] Phone [phone] Care Team Providers Care Vice President Mission Integration Name Role Phone Jewell Leyva Faye BELLO Primary Care Provider [phone] Reason for Visit * Reason Comments Chemotherapy [...] 1MCG [place] PACLITAXEL INJECTION [place] INJ CYCLOPHOSPHAMD ARMINOMEDCelia Munroe MD Hematology/Oncology Treatment, [address] [address] Phone: tel: fax: Referral ID Status Reason Start Date Expiration Date V isits Requested Visits Authorized [id number] Authorized 07/28/2024 12/18/2024 999 99 Encounter Details Date Type Department Care Team (Latest Contact Info) Description 07/28/2024 11:30 AM EST Hem/Onc Treatment Hematology/Oncolog y Treatment, [address] [address] Rayna, Chair 6 Hem Onc [address] [place] [address] Malignant neoplasm of overlapping sites of left [...] Description 09/08/2024 9:30 AM EST Laboratory Laboratory [facility] 200 [facility] [place] [phone] [place], Lab Scenery 200 [facility] [place] [address] 09/08/2024 10:00 AM EST Office Visit Hematology/Oncology [facility] 200 [facility] [place] [phone] Shannon Ramos, SENDY 400 [place] [address] 09/08/2024 10:45 AM EST Hem/Onc Treatment Hematology/Oncology Treatment, [place] [address] [place] [phone] [place], Chair 2 Hem Onc [facility] 200 [facility] [place] [address] Scheduled Procedures Name Priority Associated Diagnoses Date/Ti [...] this encounter Medical Devices Implanted Type Area Engineer Technician Device Identifier Shelf Expiration Date Model / Serial / Lot Mediport Power Mri 8fr [id number] - [id number] Implanted:Qty : 1 on 06/23/2024 by Rubén Hou MD at OR [facility] Right: Chest CR BARD : PERIPHERAL VASCULAR 06/19/2025 [id number] / / [id number] Port Implant W8f Poly Cath - [id number] Implanted:Qty : 1 on 06/23/2024 by Rubén Hou MD at OR [facility] CR BARD : PERIPHERAL VASCULAR [id number] 06/19/2025 [id number] / / [id number] documented as of this encounter Visit Diagnoses [...] mL documented in this encounter Care Teams Vice President Mission Integration Relationship Specialty Start Date End Date Gordon October Faye, SAPNAC [address] [place] [address] [place] [address] PCP - General Physician Construction Administrative Assistant 05/10/24 documented as of this encounter
--- OUTSIDE RECORDS SUMMARY | 2024-10-09 06:32 | External Medical Summary | Summary of Care ---
Author Name Unknown Organization [facility] Address [address] [facility] [address] Phone [phone] Care Team Providers Care Laborer General Name Role Phone Jewell Leyva Faye BELLO Primary Care Provider [phone] Reason for Visit * Reason Comments Chemotherapy C2D1 Keytruda, Carbo platin, Taxol * Episode Based Medications (Routine) - Authorized Specialty Diagnoses / Procedures Referred By Contyesica t Referred To Contact Diagnoses Malignant neoplasm of overlapping sites of left breast in female, estrogen receptor negative (HCC) Encounter for antineoplastic chemotherapy Prevention of chemotherapy-induced neutropenia Procedures NE DOXORUBIC HCL 10 MG VL CHEMO NE CARBOPLATIN INJECTION NE FOSAPREPITANT INJECTION NE INJ PEMBROLIZUMAB NE INJECTION, FULPHILA NE INJ, FILGRASTIM G-CSF 1MCG NE PACLITAXEL INJECTION NE INJ CYCLOPHOSPHAMD ARMINOMEDCelia Munroe MD Hematology/Oncology Treatment, [address] [address] Phone: tel: fax: Referral ID Status Reason Start Date Expiration Date V isits Requested Visits Authorized [id number] Authorized 07/28/2024 12/18/2024 999 99 Encounter Details Date Type Department Care Team (Latest Contact Info) Description 07/28/2024 11:30 AM EST Hem/Onc Treatment Hematology/Oncolog y Treatment, [address] [address] Rayna, Chair 6 Hem Onc [address] [place] [address] Malignant neoplasm of overlapping sites of left [...] Description 09/08/2024 9:30 AM EST [facility] 200 [facility] [place] [phone] [place], Lab Scenery 200 [facility] [place] [address] 09/08/2024 10:00 AM EST Office Visit [facility] 200 [facility] [place] [phone] Shannon Ramos, SENDY 400 [facility] [place] [address] 09/08/2024 10:45 AM EST Hem/Onc Treatment Hematology/Oncology Treatment, [place] [address] [place] [phone] [place], Chair 2 Hem Onc [facility] 200 [facility] [place] [address] Scheduled Procedures Name Priority Associated Diagnoses Date/Ti [...] this encounter Medical Devices Implanted Type Area Printing Gray Cloth Tender Device Identifier Shelf Expiration Date Model / Serial / Lot Mediport Power Mri 8fr [id number] - [id number] Implanted:Qty : 1 on 06/23/2024 by Rubén Hou MD at OR [facility] Right: Chest CR BARD : PERIPHERAL VASCULAR 06/19/2025 [id number] / / [id number] Port Implant W8f Poly Cath - [id number] Implanted:Qty : 1 on 06/23/2024 by Rubén Hou MD at OR [facility] CR BARD : PERIPHERAL VASCULAR [id number] 06/19/2025 [id number] / / [id number] documented as of this encounter Visit Diagnoses [...] mL documented in this encounter Care Teams Laborer General Relationship Specialty Start Date End Date Gordon October Faye, SAPNAC [address] [place] [address] [place] [address] PCP - General Physician Biomedical Specialist 05/10/24 documented as of this encounter
--- OUTSIDE RECORDS SUMMARY | 2024-10-09 06:32 | External Medical Summary | Summary of Care ---
Author Name Unknown Organization [facility] Address [address] [facility] [address] Phone [phone] Care Team Providers Care Elevator Erector Helper Name Role Phone Jewell Leyva Faye BELLO Primary Care Provider [phone] Reason for Visit * Reason Comments Chemotherapy C2D1 Keytruda, Carbo platin, Taxol * Episode Based Medications (Routine) - Authorized Specialty Diagnoses / Procedures Referred By Contyesica t Referred To Contact Diagnoses Malignant neoplasm of overlapping sites of left breast in female, estrogen receptor negative (HCC) Encounter for antineoplastic chemotherapy Prevention of chemotherapy-induced neutropenia Procedures NM DOXORUBIC HCL 10 MG VL CHEMO NM CARBOPLATIN INJECTION NM FOSAPREPITANT INJECTION NM INJ PEMBROLIZUMAB NM INJECTION, FULPHILA NM INJ, FILGRASTIM G-CSF 1MCG NM PACLITAXEL INJECTION NM INJ CYCLOPHOSPHAMD ARMINOMEDCelia Munroe MD Hematology/Oncology Treatment, [address] [address] Phone: tel: fax: Referral ID Status Reason Start Date Expiration Date V isits Requested Visits Authorized [id number] Authorized 07/28/2024 12/18/2024 999 99 Encounter Details Date Type Department Care Team (Latest Contact Info) Description 07/28/2024 11:30 AM EST Hem/Onc Treatment Hematology/Oncolog y Treatment, [address] [address] Rayna, Chair 6 Hem Onc [address] [place] [address] Malignant neoplasm of overlapping sites of left [...] Patient instructed on the risk of potential iptts while using the heat function. Safety and Risk for Injury Patient will remain free from injury. Ensure appropriate safety devices are available. Provide and maintain safe environment. documented in this encounter Plan of Treatment Upcoming Encounters Date Type Department Care Team (Late st Contact Info) Description 09/08/2024 9:30 AM EST Laboratory Laboratory [facility] 200 [facility] [place] [phone] [place], Lab Scenery 200 [facility] [place] [address] 09/08/2024 10:00 AM EST Office Visit Hematology/Oncology [facility] 200 [facility] [place] [phone] Shannon Ramos, SENDY 400 [place] [address] 09/08/2024 10:45 AM EST Hem/Onc Treatment Hematology/Oncology Treatment, [place] [address] [place] [phone] [place], Chair 2 Hem Onc [facility] 200 [facility] [place] [address] Scheduled Procedures Name Priority Associated Diagnoses Date/Ti [...] this encounter Medical Devices Implanted Type Area Cap Sizer Device Identifier Shelf Expiration Date Model / Serial / Lot Mediport Power Mri 8fr [id number] - [id number] Implanted:Qty : 1 on 06/23/2024 by Rubén Hou MD at OR [facility] Right: Chest CR BARD : PERIPHERAL VASCULAR 06/19/2025 [id number] / / [id number] Port Implant W8f Poly Cath - [id number] Implanted:Qty : 1 on 06/23/2024 by Rubén Hou MD at OR [facility] CR BARD : PERIPHERAL VASCULAR [id number] 06/19/2025 [id number] / / [id number] documented as of this encounter Visit Diagnoses [...] mL documented in this encounter Care Teams Elevator Erector Helper Relationship Specialty Start Date End Date Gordon October Faye, SAPNAC [address] [place] [address] [place] [address] PCP - General Physician Lcac Radar Operator/Navigator 05/10/24 documented as of this encounter
--- OUTSIDE RECORDS SUMMARY | 2024-10-09 06:32 | External Medical Summary | Summary of Care ---
Author Name Unknown Organization [facility] Address [address] [facility] [address] Phone [phone] Care Team Providers Care Castings Drafter Name Role Phone Jewell Leyva Faye BELLO Primary Care Provider [phone] Reason for Visit * Reason Comments Chemotherapy [...] 1MCG CT PACLITAXEL INJECTION CT INJ CYCLOPHOSPHAMD ARMINOMEDCelia Munroe MD Hematology/Oncology Treatment, [address] [address] Phone: tel: fax: Referral ID Status Reason Start Date Expiration Date V isits Requested Visits Authorized [id number] Authorized 07/28/2024 12/18/2024 999 99 Encounter Details Date Type Department Care Team (Latest Contact Info) Description 07/28/2024 11:30 AM EST Hem/Onc Treatment Hematology/Oncolog y Treatment, [address] [address] Rayna, Chair 6 Hem Onc [address] [place] [address] Malignant neoplasm of overlapping sites of left [...] Description 09/08/2024 9:30 AM EST Laboratory Laboratory [facility] 200 [facility] [place] [phone] [place], Lab Scenery 200 [facility] [place] [address] 09/08/2024 10:00 AM EST Office Visit Hematology/Oncology [facility] 200 [facility] [place] [phone] Shannon Ramos, SENDY 400 [facility] [place] [address] 09/08/2024 10:45 AM EST Hem/Onc Treatment Hematology/Oncology Treatment, [place] [address] [place] [phone] [place], Chair 2 Hem Onc [facility] [address] [facility] [place] [address] Scheduled Procedures Name Priority Associated Diagnoses Date/Ti [...] this encounter Medical Devices Implanted Type Area Billet Driller Device Identifier Shelf Expiration Date Model / Serial / Lot Mediport Power Mri 8fr [id number] - [id number] Implanted:Qty : 1 on 06/23/2024 by Rubén Hou MD at OR [facility] Right: Chest CR BARD : PERIPHERAL VASCULAR 06/19/2025 [id number] / / [id number] Port Implant W8f Poly Cath - [id number] Implanted:Qty : 1 on 06/23/2024 by Rubén Hou MD at OR [facility] CR BARD : PERIPHERAL VASCULAR [id number] 06/19/2025 [id number] / / [id number] documented as of this encounter Visit Diagnoses [...] mL documented in this encounter Care Teams Castings Drafter Relationship Specialty Start Date End Date Gordon October Faye, SAPNAC [address] [place] [address] [place] [address] PCP - General Physician Furnace Reliner 05/10/24 documented as of this encounter
--- OUTSIDE RECORDS SUMMARY | 2024-10-09 06:32 | External Medical Summary | Summary of Care ---
Author Name Unknown Organization [facility] Address [address] [place] [facility] [place] [address] Phone [phone] Care Team Providers Care Ends Down Checker Name Role Phone Jewell Leyva Faye BELLO Primary Care Provider [phone] Reason for Visit * Reason Comments Medication Administration Fulphila * Episode Based Medications (Routine) - Authorized Specialty Diagnoses / Procedures Referred By Jacobo lo Referred To Contact Diagnoses Malignant neoplasm of overlapping sites of left breast in female, estrogen receptor negative (HCC) Encounter for antineoplastic chemotherapy Prevention of chemotherapy-induced neutropenia Procedures [place] DOXORUBIC HCL 10 MG VL CHEMO [place] CARBOPLATIN INJECTION [place] FOSAPREPITANT INJECTION [place] INJ PEMBROLIZUMAB [place] INJECTION, FULPHILA [place] INJ, FILGRASTIM G-CSF 1MCG [place] PACLITAXEL INJECTION [place] INJ CYCLOPHOSPHAMD Celia Ma MD Hematology/Oncology Treatment, [address] [place] [address] Phone: tel: fax: Referral ID Status Reason Start Date Expiration Date V isits Requested Visits Authorized [id number] Authorized 07/28/2024 12/18/2024 999 99 Encounter Details Date Type Department Care Team (Latest Contact Info) Description 07/30/2024 8:00 AM EST Immunization/ Injection Hematology/Oncology Treatment, [address] [place] [address] Rayna, Chair 5 Hem Onc [address] [address] Malignant neoplasm of overlapping sites of left breast in female, estrogen receptor negative (HCC)*; Encounter for antineoplastic chemotherapy; Prevention of chemotherapy-induced neutropenia Allergies Active Allergy Reactions Criticality Noted Date Comments Vancomycin Low 03/16/2022 documented as of this encounter (statuses as of 08/31/2024) Medications MULTIVITAMINS PO TABS one a day [...] as of this encounter (statuses as of 08/31/2024) Active Problems Problem Noted Date Diagnosed Date [...] as of this encounter (statuses as of 08/31/2024) Resolved Problems Problem Noted Date Diagnosed Date Resolved Date Current mild episode of chente r depressive disorder without prior episode 08/19/2018 4 ABN PAP SMEAR-CERVIX 999 Encounter for supervision of other normal 05/28/2016 Overview (11/21/2015): ICD-10 update of inactive term documented as of this encounter (statuses as of 08/31/2024) Immunizations Name Administration Dates Next Due TD [...] Nursing Notes * Anny Tao LPN - 07/30/2024 8:41 AM EST Fulphila 6mg administered SQ into the right upper extremity. Patient tolerated injection. documented in this encounter Plan of Treatment Upcoming Encounters Date Type Department Care Team (Late st Contact Info) Description 09/08/2024 9:30 AM EST Laboratory Laboratory [facility] [address] [place] [phone] [place], Lab [address] [place] [address] 09/08/2024 10:00 AM EST Office Visit Hematology/Oncology [facility] [address] [place] [phone] Shannon Ramos, SENDY [address] [place] [address] [place] [address] 09/08/2024 10:45 AM EST Hem[facility] [address] [place] [phone] Rayna, Chair 2 Hem Onc [facility] 200 [facility] [place] [address] Scheduled Procedures Name Priority Associated Diagnoses Date/Ti [...] this encounter Medical Devices Implanted Type Area Editorial Project Manager Device Identifier Shelf Expiration Date Model / Serial / Lot Mediport Power Mri 8fr [id number] - [id number] Implanted:Qty : 1 on 06/23/2024 by Rubén Hou MD at OR [facility] Right: Chest CR BARD : PERIPHERAL VASCULAR 06/19/2025 [id number] / / [id number] Port Implant W8f Poly Cath - [id number] Implanted:Qty : 1 on 06/23/2024 by Rubén Hou MD at OR [facility] CR BARD : PERIPHERAL VASCULAR [id number] 06/19/2025 [id number] / / [id number] documented as of this encounter Visit Diagnoses [...] 6 mg 6 mg, Subcutaneous, ONCE, On Fri07/30/24 at 0900, For 1 doseIndications:Malignant neoplasm of overlapping sites of left breast in female, estrogen receptor negative (HCC),Encounter for antineoplastic chemotherapy,Prevention of chemotherapy-induced neutropenia Given 07/30/2024 8:34 AM EST 6 mg Arm Right Upper documented in this encounter Care Teams Ends Down Checker Relationship Specialty Start Date End Date GrodonOctober EUGENIA Mckinney [address] [place] [address] PCP - General Physician Paper Cone Machine Operator 05/10/24 documented as of this encounter
--- OUTSIDE RECORDS SUMMARY | 2024-10-09 06:33 | External Medical Summary ---
Author Name Unknown Address Unknown Organization K01:[facility] - [address] [place] [address] Laboratory Report Ordering Provider Test Date Status JOCY DILL 08/18/2024 09:26:00 Final Observation Date Value Abnormality Reference (Units ) Status TSH 08/18/2024 09:26:00 0.55 0.27-4.20 (uIU/mL) Final Performing Location [facility] - [address] [place] [address]
--- OUTSIDE RECORDS SUMMARY | 2024-10-09 06:33 | External Medical Summary ---
Author Name Unknown Address Unknown Organization K09:[facility] [place] [address] Laboratory Report Ordering Provider Test Date Status JOCY DILL 08/18/2024 09:26:00 Final Observation Date Value Abnormality Reference (Units ) Status WBC, Total 08/18/2024 09:26:00 11.27 Above high normal 4 .00-10.80 (K/uL) Final RBC 08/18/2024 09:26:00 4.07 3.85-5.15 (M/uL) Final Hemoglobin 08/18/2024 09:26:00 12.9 12.0-15.3 (g/dL) Final HCT 08/18/2024 09:26:00 38.8 36.0-45.2 (%) Final MCV 08/18/2024 09:26:00 95.3 81.5-97.5 (fL) Final MCH 08/18/2024 09:26:00 31.7 27.0-34.0 (pg) Final MCHC 08/18/2024 09:26:00 33.2 32.0-36.0 (g/dL) Final RDW 08/18/2024 09:26:00 16.0 11.5-15.5 (%) Final Platelets 08/18/2024 09:26:00 265 140-400 (K /uL) Final MPV 08/18/2024 09:26:00 9.9 6.6-11.1 ( fL) Final Performing Location [facility] [place] [address]
--- OUTSIDE RECORDS SUMMARY | 2024-10-09 06:33 | External Medical Summary | Summary of Care ---
Author Name Unknown Organization [facility] Address [address] [place] [address] Phone [phone] Care Team Providers Care Roller Helper Name Role Phone Jewell Leyva EUGENIA Primary Care Provider [phone] Reason for Visit * Reason Onset Date Comments Imaging Records Request 08/09/2024 Breast Imaging Records Request 08/09/2024 Encounter Details Date Type Department Care Team (Late st Contact Info) Description 08/09/2024 Telephone Radiology Film File [address] [place] [address] Support, Imaging Radiology [address] [place] [address] Imaging Records Request; Breast Imaging Re... Allergies Active Allergy Reactions Criticality Noted Date Comments Vancomycin Low 03/16/2022 documented as of this encounter (statuses as of 08/09/2024) Medications MULTIVITAMINS PO TABS one a day [...] MORNING 90 Tablet 1 07/13/20 24 Active documented as of this encounter (statuses as of 08/09/2024) Active Problems Problem Noted Date Diagnosed Date Dehydration 07/05/2024 Malignant neoplasm of overla pping sites of left breast in female, estrogen receptor negative 06/14/2024 Encounter for antineoplastic chemotherapy 2023 Prevention of chemotherapy-induced neutropenia 1 08/14/2023 Food insecurity 05/31/2024 Overview: Per [facility] Protocol ASCUS with positive high risk HPV cervical 06/04 Major depressive disorder, r ecurrent severe without psychotic features 04/10/2023 Major depressive disorder, single episode, moder ate 06/07/2021 Encounter for other general counseling or advice on contraception 04/27/2010 Overview (04/20/2024): ICD-10 update of inactive term documented as of this encounter (statuses as of 08/09/2024) Resolved Problems Problem Noted Date Diagnosed Date Resolved Date Current mild episode of chente r depressive disorder without prior episode 08/19/2018 4 ABN PAP SMEAR-CERVIX 999 Encounter for supervision of other normal 05/28/2016 Overview (11/21/2015): ICD-10 update of inactive term documented as of this encounter (statuses as of 08/09/2024) Immunizations Name Administration Dates Next Due TD [...] ages 0-17 years) Not on file 05/17/2024 Comments No Sex and Gender Information [...] encounter Miscellaneous Notes * Telephone Encounter - Ross Gramajo OSA - 08/09/2024 9:30 AM EST Patient requested for ALL 03.14.23 to Present Breast imaging and PET CT from 06.15.24 Image(s) be prepared and available for pickup Disc created and placed at [facility] hotel desk clerk with patientright of access form Patient/agricultural sales representative notified that disc ready for pickup documented in this encounter Plan of Treatment Upcoming Encounters Date Type Department Care Team (Late st Contact Info) Description 08/18/2024 9:30 AM EST Laboratory Laboratory [facility] [place] [address] [place] [phone] [place], Lab [facility] [address] [facility] [place] [address] 08/18/2024 10:00 AM EST Office Visit Hematology/Oncology [facility] [place] [address] [place] [phone] Darryn Fong MD [address] [place] [address] 08/18/2024 11:00 AM EST Hem/Onc Treatment Hematology/Oncology Treatment, [place] [address] [place] [phone] Rayna, Chair 1 Hem Onc [address] [place] [address] Scheduled Procedures Name Priority Associated Diagnoses Date/Ti [...] 07/23, 12/21/2015, Additional history exists Diabetes Screening 07/28/2027 07/28/2024, 1 , 07/05/2024, Additional history exists Cervical Cancer Screening 06/04/2028 [...] this encounter Medical Devices Implanted Type Area Manager Recruitment Device Identifier Shelf Expiration Date Model / Serial / Lot Mediport Power Mri 8fr [id number] - [id number] Implanted:Qty : 1 on 06/23/2024 by Rubén Hou MD at OR [facility] Right: Chest CR BARD : PERIPHERAL VASCULAR 06/19/2025 [id number] / / [id number] Port Implant W8f Poly Cath - [id number] Implanted:Qty : 1 on 06/23/2024 by Rubén Hou MD at OR [facility] CR BARD : PERIPHERAL VASCULAR [id number] 06/19/2025 [id number] / / [id number] documented as of this encounter Care Teams Roller Helper Relationship Specialty Start Date End Date Jewell Leyva PA-C [address] [place] [address] [place] [address] PCP - General Physician Sales Compensation Analyst 05/10/24 documented as of this encounter
--- OUTSIDE RECORDS SUMMARY | 2024-10-09 06:33 | External Medical Summary | Summary of Care ---
Author Name Unknown Organization [facility] Address [address] [place] [address] Phone [phone] Care Team Providers Care Surgeon'S Assistant Name Role Phone Jewell Leyva EUGENIA Primary Care Provider [phone] Reason for Visit * Reason Comments Genetic Counseling * Evaluate & Treat - Unlimited Visits (Within 3 days (urgent)) - Pending Review Specialty Diagnoses / Procedures Referred By Contyesica t Referred To Contact Medical Genetics / Hematology Oncology Diagnoses Malignant neoplasm of upper-inner quadrant of left breast in female, estrogen receptor negative (HCC) Fawn Lindsay MD [address] [place] [address] Phone: tel: fax: Referral ID Status Reason Start Date Expiration Date Visits Requested Visits Authorized [id number] Pending Review Specialty Services Required [phone] Encounter Details Date Type Department Care Team (Late st Contact Info) Description 08/05/2024 1:45 PM EST Telemedicine Genetics HemOnc, C [address] [place] [address] Sofia Eldridge, MS [address] [place] [address] Malignant neoplasm of overlapping sites of left breast in female, estrogen receptor negative (HCC)*; Family history of ovarian cancer; Family history of colon cancer Allergies Active Allergy Reactions Criticality Noted Date Comments Vancomycin Low 03/16/2022 documented as of this encounter (statuses as of 08/06/2024) Medications MULTIVITAMINS PO TABS one a day [...] as of this encounter (statuses as of 08/06/2024) Active Problems Problem Noted Date Diagnosed Date Dehydration 07/05/2024 Malignant neoplasm of overla pping sites of left breast in female, estrogen receptor negative 06/14/2024 Encounter for antineoplastic chemotherapy 2023 Prevention of chemotherapy-induced neutropenia 1 08/14/2023 Food insecurity 05/31/2024 Overview: Per [facility] Protocol ASCUS with positive high risk HPV cervical 06/04 Major depressive disorder, r ecurrent severe without psychotic features 04/10/2023 Major depressive disorder, single episode, moder ate 06/07/2021 Encounter for other general counseling or advice on contraception 04/27/2010 Overview (04/20/2024): ICD-10 update of inactive term documented as of this encounter (statuses as of 08/06/2024) Resolved Problems Problem Noted Date Diagnosed Date Resolved Date Current mild episode of chente r depressive disorder without prior episode 08/19/2018 4 ABN PAP SMEAR-CERVIX 999 Encounter for supervision of other normal 05/28/2016 Overview (11/21/2015): ICD-10 update of inactive term documented as of this encounter (statuses as of 08/06/2024) Immunizations Name Administration Dates Next Due TD [...] on file documented as of this encounter Patient Instructions * Patient Instructions* Sofia Eldridge MS - 08/05/2024 2:30 PM EST You spoke with Sofia Eldridge MS, [facility] on 08/05/2024 for a Cancer Genetics Risk Assessment. TODAY'S SUMMARY If you have questions about your risk assessment, evaluation, testing process, or results, contact our clinic at [phone] or send a [employer] message. You agreed to complete genetic testing today. Results are expected in approximately 7-10 days from sample collection and will appear in the [employer] portal under "Test Results." I will contact you with your results. You can request an electronic copy of your report through [facility]. Insurance Coverage: The laboratory ([facility]) will complete prior authorization for genetic testing, if required. If your estimated out of pocket expense after insurance processing is >$100, [facility] will contact you to discuss options based on your specific financial situation. Visit this link for more information or contact the laboratory billing department at [phone] or [email or web address]. Sample Collection: Your blood draw will be completed along with your upcoming pre-chemo labs. Lab order: [facility] Breast Cancer Genetics Panel Ordering Provider: Fawn Lindsay MD. For assistance finding [facility] locations and hours, visit: [email or web address] Read more about genetic testing here: Hereditary Cancer Genetic Testing - Patient Guide For any genetic test, there are three types of results. 1. Negative Result: A mutation that causes increased risk for cancer was not found in you. 2. Positive Result: A genetic risk factor for cancer was found. Based on your specific result, thisinformation could change your medical care. If any significant findings are reported on your testing, we may recommend a follow up visit 3. Inconclusive Result (Variant of Uncertain Significance found): An innocent until proven guilty genetic change was detected, but more research is needed to learn if it increases your chances of developing cancer or not. What should I know about genetics and cancer? Cancer is a common disease, and most often happens by chance. In some families, we can see multiplecases of sporadic cancers, because cancer becomes more common as we age and as people are exposed to different environmental risk factors over time. Only 5-10% of cancers happen because of a genetic mutation that runs in the family. Having a mutation does not mean you will get cancer; it just means you have a higher chance to get cancer than other people. Genetic Information Nondiscrimination Act of 2008: This federal law protects you from discrimination based on your genetic information and applies to health insurance. It is illegal for your health insurer to use family health history and/or genetic test results as a reason to deny you health insurance, or decide how much you pay for your health insurance. MED does not apply to life, disability and long-term care insurance. For more information, go to GINAhelp.org Sincerely, Sofia Eldridge MS, [facility] -- Licensed, Certified Genetic Counselor Cancer Genetics Risk Assessment Clinic Department of Gen[facility] at [facility] (P) [phone] | (F) [phone] | (E) [email or web address] documented in this encounter Progress Notes * Sofia Eldridge MS - 08/05/2024 1:45 PM EST Images from the original note were not included. Cancer Genetic Risk Assessment Clinic at [facility] | | Email: [email or web address] Location: [place] [address] Dept. Referring Provider: Fawn Lindsay MD Name: Radha Fung Date: 08/05/2024 - 1:45 PM EST Present for consult: RadhaSofia Manning MS, [facility] Visit Type: Phone. The patient is located in the [facility]. The treating clinician is located not in a hospital location. After connecting to the patient via telephone, the patient was identified by name and date of . As per patient preference, connection with the patient via audio only occurred. The patient was informed this was a phone call only visit and was identified by name and date of . The patient agreed to participate. Total call duration was 25 min. I spent a total of 30-39 minutes (exact time 35 mins) on the date of service in preparation, delivery, and documentation of the care provided to Radha Fung excluding any time spent in the performance of separately billed services or time spent by another provider/QHP. REASON FOR VISIT: Evaluation for Hereditary Cancer Syndrome HPI: Radha Fung is a 48 year old female assigned at who has been referred to the CancerGenetics Risk Assessment Clinic due to a personal history of breast cancer. ASSESSMENT: Radha Fung has a personal history of breast cancer and family history of ovarian cancer that is concerning for a hereditary predisposition. NCCN criteria for genetic testing for Hereditary Breast and Ovarian Cancer (HBOC) is met. Verbal consent for genetic testing obtained. PLAN: Test Ordered: Breast Cancer STAT Panel at [facility] (9 genes) Genes Included: CARLOS, BRCA1, BRCA2, CDH1, CHEK2, PALB2, PTEN, STK11, TP53 With automatic reflex to: Multi-Cancer Panel + Expanded Breast/Inspector Crystal Panel at [facility] (74 genes) Genes Included: AIP, ALK, APC, CARLOS, AXIN2, BAP1, BARD1, BLM, BMPR1A, BRCA1, BRCA2, BRIP1, CDC73, CDH1, CDK4, CDKN1B, CDKN2A (p14ARF), CDKN2A ([id number]), CHEK2, CTNNA1, DICER1, EGFR, EPCAM, FH, FLCN, GREM1, HOXB13, KIT, LTZR1, MAX, MBD4, MEN1, MET, MITF, MLH1, MSH2, MSH3, MSH6, MUTYH, NF1, NF2, NTHL1, PALB2, PDGFRA, PMS2, POLD1, POLE, POT1, ELPEW3E, PTCH1, PTEN, RAD51C, RAD51D, RB1, RET, SDHA, SDHAF2, SDHB, SDHC, SDHD, SMAD4, SMARCA4, SMARCB1, SMARCE1, STK11, SUFU, URTS222, TP53, TSC1, TSC2, VHL+ FANCC, FANCM, NBN, RECQL Blood sample to be collected at upcoming lab appointment; results anticipated in 7-10 days from sample collection. Results disclosure preferred by: MyG and phone. PAST MEDICAL HISTORY: Breast Hx: Personal history of breast cancer diagnosed age 48; Invasive Ductal Carcinoma; Treatment: chemo and schedule. Pathology 05/2024: A. Breast, Left, left breast 11:00 9cm FN - palpable, core biopsy: Invasive ductal carcinoma, histologic grade 3, associated extensive necrosis Predictive markers ordered Estrogen Receptor (ER) protein expression is NEGATIVE <1% nuclear positivity COMMENT: Assay internal and external control immunoreactivity is appropriate. Progesterone Receptor (FL) protein expression is WEAKLY POSITIVE 10% nuclear positivity 1+ average intensity score (range 0 to 3+) HER2 oncoprotein expression is NEGATIVE ( 1+ average membranous intensity) Inspector Crystal/ Hx: Hx abnormal pap 2-3 colposcopies in the past. Most recent pap nl. Gastro Hx: No history of GI concerns. Most recent colonoscopy 03/2023, normal; recommended recall: 10 years. No prior history of EGD. Derm Hx: No history of skin cancer. Hyperkeratosis on checks Past Medical History: Diagnosis Date Abnormal Papanicolaou smear of cervix and cervical HPV Malignant neoplasm of overlapping sites of left breast in female, estrogen receptor negative (HCC) 06/14/2024 Other anxiety states Varicella without complication Past Surgical History: Procedure Laterality Date COLONOSCOPY, DIAGNOSTIC (RECTUM) 04/11/2023 hemorrhoids/recall 10 years/COLONOSCOPY FLEXIBLE PROXIMAL DIAGNOSTIC performed by Rajendra Leon MD at ENDOSCOPY [facility] COLPOSCPY CERVIX W/BX AND EC 1997,1998 INSER TUNN ACC DEV;5 YRS/OLDER Right 06/23/2024 INSERT TUNNELED CENTRAL VENOUS ACCESS WITH SUBQ PORT performed by Rubén Hou MD at OR [facility] SURGICAL PROCEDURE ONLY Left 05/27/2024 Aspiration on left breast by Dr. Fawn Lindsay. VAGINAL DELIVERY ONLY times 3 Social History Tobacco Use Smoking status: Never Smokeless tobacco: Never Vaping Use Vaping status: Never Used Substance Use Topics Alcohol use: Yes Comment: once per month Drug use: No FAMILY HISTORY: This self-reported family history was collected in the absence of complete medical records. ?If the family history changes or more information is obtained, the patient was asked to contact our clinic as this may alter the assessment and recommendations.? No Ashkenazi Druze ancestry reported. Per patient report, no relatives have had genetic testing for inherited cancer risk. Family History Problem Relation Name Age of Onset Ovarian cancer Grandmother (Paternal) 70 - 79 COD Colon cancer Uncle (Maternal) 50 - 59 Ostemy, 10-15 years ago PEDIGREE: Cancer Genetics Pedigree Image RISK ASSESSMENT & CONSULT SUMMARY: I recommended genetic testing for Radha Fung based on the personal history of breast cancer. We discussed the timing and utility of salazar-cancer panels. We briefly discussed that a broader panelcould include genes associated with breast cancer and ovarian cancer risk, given the reported family history. Radha elected a broad, multi-cancer panel. Breast Cancer: 7-10% of breast cancers, regardless of age at diagnosis or family history, are thought to be hereditary (Hu et al., 2020). NCCN recommends genetic testing for individuals with a personal history of breast cancer diagnosed age 50y or younger. Hereditary breast cancer often presents in a family with early onset disease (<45y), bilateral breast cancer, a combination of breast, pancreas, prostate, and/or ovarian on one side of the family,or multiple cases of breast cancer (3 or more) on the same side of the family. The BRCA1 and BRCA2 genes remain the most common findings in hereditary breast cancer risk, accounting for 25-50% of all positive results identified. Additional high and moderate risk genes include: CARLOS, BARD1, CHEK2, PALB2, RAD51C, and RAD51D. Additional genes included on hereditary breast cancer panels include much less common findings such as: CDH1, NF1, PTEN, STK11, and TP53 as these are typically syndromic in presentation. Ovarian Cancer: Up to 20% of ovarian cancers (especially high grade serous, endometrioid, clear cell and carcinosarcoma histologies) are associated with a hereditary (germline) risk factor (i.e. BRCA1/2, RAD51C/D, or Martinez syndrome mutation). Any epithelial ovarian cancer diagnosis warrants germline genetic evaluation through multigene panel testing. The NCCN suggest germline genetic testing for inherited cancer risk in all women with a personal history of ovarian cancer, or in individuals who have an affected first- or second-degree relative. Most (75-80%) ovarian cancers are sporadic. Sometimes ovarian cancer clusters in a family with a multifactorial etiology, or related to many different environmental, familial, and sporadic factors. GENETIC TEST EDUCATION: We discussed the risks, benefits, and limitations testing for hereditary cancer syndromes using a multigene panel. Signs of inherited cancer risk: multiple family members with related cancers, cancer in several generations of one side of a family, early-onset cancers (<45y), individuals with >1 cancer diagnosis. Most hereditary cancer conditions are inherited in an autosomal dominant pattern. Cancer riskscan differ between males and females in the same family who share a disease-causing variant. Nature of genetic risk: Individuals with a pathogenic variant in a cancer- related gene may have significantly higher cancer risk. Some cancers may be difficult to detect and/or treat. Identifying those at high risk may warrant additional screening, surveillance, and interventions which could aid inrisk- reduction and early diagnosis, thereby increasing the chances of successful treatment and survival. Nuances of genetic testing: Some genes are well-described with specific screening and management recommendations from national experts (eBárbarag., NCCN). Testing may include newly discovered genes where cancer risk and management guidelines are not well understood or defined. Some cancer types do not have adequate screening available at this time. Genetic Information Non-discrimination Act (MED) detailed in AVS. This 2008 law has provisions against discrimination based on genetic status for employment and health insurance; it does not cover other insurance (e.g. life insurance, long- term disability insurance). Discussed possible results: Positive result: Pathogenic or Likely Pathogenic Variant identified. Medical management dependent upon the gene in which the P/LP variant was identified and will be discussed at the time of result disclosure. Discussed potential surveillance and early-detection options, risk-reducing medications, and surgical risk reduction options. Discussed that there may be risk to close relatives to have the same genetic variant. Negative result (No variants identified): Medical management and cancer screening will be based on family history and physicians recommendations. Variant of Uncertain Significance ("VUS" identified): Medical management would be the same as a negative result as many VUS are eventually reclassified as benign. If results are negative or VUS, next steps for Radha Fung may include referral to: Inherited Risk Breast Clinic and consideration of initiating breast surveillance at an earlier age based on family history . PSYCHOSOCIAL HISTORY: We discussed the possible psychological implications of genetic testing, issues of family dynamics,and concerns regarding confidentiality, insurance coverage, and genetic discrimination. Motivation for testing: interested in preventative care or early-detection and concerned about riskto family members Family communication: no concerns. Family Sharing: To be addressed at result disclosure. Consent: I provided an opportunity for the patient to ask questions. I obtained the proper consent and Radha confirmed their understanding of the information discussed. Sofia Eldridge MS, [facility] Licensed, Certified Genetic Counselor This note is shared with Radha Fung electronically. ICD-10-CM 1. Malignant neoplasm of overlapping sites of left breast in female, estrogen receptor negative (HCC) C50.812 Z17.1 2. Family history of ovarian cancer Z80.41 3. Family history of colon cancer Z80.0 documented in this encounter Plan of Treatment Upcoming Encounters Date Type Department Care Team (Late st Contact Info) Description 08/18/2024 9:30 AM EST Laboratory Laboratory [facility] [address] [place], [place] [address] [place], Lab [address] [facility] [place], [place] [address] 08/18/2024 10:00 AM EST Office Visit Hematology/Oncology [facility] [place] [address] [place] [phone] Darryn Fong MD [address] [place] [address] 08/18/2024 11:00 AM EST [facility] [address] [place], [place] [address] Rayna, Chair 1 Hem Onc [facility] [address] [facility] [place] [address] Scheduled Orders Name Type Priority Associated Diagnoses Orde r Schedule INVITAE BREAST CANCER GENETICS PANEL Lab Routine Malignant neoplasm of overlapping sites of left breast in female, estrogen receptor negative (HCC) Family history of ovarian cancer Expected: 08/06/2024 (Approximate), Expires: 08/05/2025 Scheduled Procedures Name Priority Associated Diagnoses Date/Ti [...] this encounter Medical Devices Implanted Type Area Web Analytics Specialist Device Identifier Shelf Expiration Date Model / Serial / Lot Mediport Power Mri 8fr [id number] - [id number] Implanted:Qty : 1 on 06/23/2024 by Rubén Hou MD at OR [facility] Right: Chest CR BARD : PERIPHERAL VASCULAR 06/19/2025 [id number] / / [id number] Port Implant W8f Poly Cath - [id number] Implanted:Qty : 1 on 06/23/2024 by Rubén Hou MD at OR [facility] CR BARD : PERIPHERAL VASCULAR [id number] 06/19/2025 [id number] / / [id number] documented as of this encounter Visit Diagnoses Diagnosis Malignant neoplasm of overlapping sites of left breast in female, estrogen receptor negative (HCC)- Primary Family history of ovarian cancer Family history of malignant neoplasm of ovary Family history of colon cancer Family history of malignant neoplasm of gastrointestinal tract documented in this encounter Care Teams Surgeon'S Assistant Relationship Specialty Start Date End Date Jewell Leyva PA-C [address] [place] [address] PCP - General Physician Cannery Worker 05/10/24 documented as of this encounter
--- OUTSIDE RECORDS SUMMARY | 2024-10-09 06:33 | External Medical Summary | Summary of Care ---
Author Name Unknown Organization [facility] Address [address] [place] [place] [address] Phone [phone] Care Team Providers Care Motor Hotel Manager Name Role Phone Jewell Leyva Faye BELLO Primary Care Provider [phone] Reason for Visit * Reason Comments Chemotherapy Keytruda, Taxol and Carbo * Episode Based Medications (Routine) - Authorized Specialty Diagnoses / Procedures Referred By Contyesica t Referred To Contact Diagnoses Malignant neoplasm of overlapping sites of left breast in female, estrogen receptor negative (HCC) Encounter for antineoplastic chemotherapy Prevention of chemotherapy-induced neutropenia Procedures AK DOXORUBIC HCL 10 MG VL CHEMO AK CARBOPLATIN INJECTION AK FOSAPREPITANT INJECTION AK INJ PEMBROLIZUMAB AK INJECTION, FULPHILA AK INJ, FILGRASTIM G-CSF 1MCG AK PACLITAXEL INJECTION AK INJ CYCLOPHOSPHAMD AUROMEDIC Celia Beard MD Hematology/Oncology Treatment, [address] [address] Phone: tel: fax: Referral ID Status Reason Start Date Expiration Date V isits Requested Visits Authorized [id number] Authorized 07/28/2024 12/18/2024 999 [id number] Encounter Details Date Type Department Care Team (Latest Contact Info) Description 06/28/2024 10:30 AM EST Hem/Onc Treatment Hematology/Oncolog y Treatment, [address] [address] Malignant neoplasm of overlapping sites of left breast in female, estrogen receptor negative (HCC)*; Encounter for antineoplastic chemotherapy; Prevention of chemotherapy-induced neutropenia Allergies Active Allergy Reactions Criticality Noted Date Comments Vancomycin Low 03/16/2022 documented as of this encounter (statuses as of 07/31/2024) Medications MULTIVITAMINS PO TABS one a day Active ALPRAZolam 0.25 MG Oral Tablet (xaNAX) Take by mouth 1 Tablet in the morning AND 1 Tablet at noon AND 1 Tablet before bedtime. As needed for anxiety. 30 Tablet 1 022 Active Additional Information Patient not taking.Reported on 06/23/2024 Nitroglycerin 0.2% rectal ointment Administer into the rectum 2 times a day. 20 g 3 024 Active Additional Information Patient not taking.Reported on 06/23/2024 diphenhydrAMINE HCl 25 MG Oral Tablet (Benadryl)Indicat ions:Malignant neoplasm of overlapping sites of left breast in female, estrogen receptor negative (HCC),Encounter for antineoplastic chemotherapy,Prev ention of chemotherapy-jenae delphine neutropenia Take by mouth 1 Capsule 12 hours prior to paclitaxel infusion. 12 Tablet 024 Active Additional Information Patient not taking.Reported on 06/23/2024 Famotidine 20 MG Oral Tablet (Pepcid)Indicatio ns:Malignant neoplasm of overlapping sites of left breast in female, estrogen receptor negative (HCC),Encounter for antineoplastic chemotherapy,Prev ention of chemotherapy-jenae delphine neutropenia Take by mouth 1 Tablet 12 hours prior to paclitaxel infusion. 12 Tablet 024 Active Additional Information Patient not taking.Reported on 06/23/2024 Prochlorperazine Maleate 10 MG Oral Tablet (Compazine)Indica tions:Malignant neoplasm of overlapping sites of left breast in female, estrogen receptor negative (HCC),Encounter for antineoplastic chemotherapy,Prev ention of chemotherapy-jenae delphine neutropenia Take 1 Tablet by mouth every 6 hours as needed for Nausea. 30 Tablet 5 024 Active Additional Information Patient not taking.Reported on 06/23/2024 Lidocaine-Priloca ine 2.5-2.5 % External Cream (Emla)Indications :Malignant neoplasm of overlapping sites of left breast in female, estrogen receptor negative (HCC) APPLY TO SKIN OVER MEDIPORT & COVER 1HR PRIOR TO ACCESSING. 30 g 1 Active Additional Information Patient not taking.Reported on 06/23/2024 Loratadine 10 MG Oral Tablet (Claritin)Indicat ions:Malignant neoplasm of overlapping sites of left breast in female, estrogen receptor negative (HCC) Take 1 tablet by mouth daily x5 days starting the day of chemotherapy 40 Tablet Active Additional Information Patient not taking.Reported on 06/23/2024 Ondansetron HCl 8 MG Oral Tablet (Zofran)Indicatio ns:Malignant neoplasm of overlapping sites of left breast in female, estrogen receptor negative (HCC) Take 1 Tablet by mouth every 8 hours as needed for Nausea. 30 Tablet 3 Active Additional Information Patient not taking.Reported on 06/23/2024 PARoxetine HCl 40 MG Oral Tablet (pAXil) Take 1 Tablet by mouth in the morning. 90 Tablet 1 024 2023 Discontinued Amoxicillin-Pot Clavulanate 875-125 MG Oral Tablet (Augmentin)Indica tions:Malignant neoplasm of overlapping sites of left breast in female, estrogen receptor negative (HCC) Take 1 Tablet by mouth in the morning and 1 Tablet before bedtime. 28 Tablet 024 2023 Discontinued(R efill) oxyCODONE-Acetami nophen 5-325 MG Oral Tablet (Percocet)Indicat ions:Malignant neoplasm of overlapping sites of left breast in female, estrogen receptor negative (HCC) Take 2 Tablets by mouth every 6 hours as needed for Pain, Mild, Pain, Moderate or Pain, Severe. 90 Tablet 024 2023 Discontinued(R efill) documented as of this encounter (statuses as of 07/31/2024) Active Problems Problem Noted Date Diagnosed Date Malignant neoplasm of overla pping sites of left breast in female, estrogen receptor negative 06/14/2024 Encounter for antineoplastic chemotherapy 2023 Prevention of chemotherapy-induced neutropenia 1 08/14/2023 Food insecurity 05/31/2024 Overview: Per [facility] Protocol ASCUS with positive high risk HPV cervical 06/04 Major depressive disorder, r ecurrent severe without psychotic features 04/10/2023 Major depressive disorder, single episode, moder ate 06/07/2021 Encounter for other general counseling or advice on contraception 04/27/2010 Overview (04/20/2024): ICD-10 update of inactive term documented as of this encounter (statuses as of 07/31/2024) Resolved Problems Problem Noted Date Diagnosed Date Resolved Date Current mild episode of chente r depressive disorder without prior episode 08/19/2018 4 ABN PAP SMEAR-CERVIX 999 Encounter for supervision of other normal 05/28/2016 Overview (11/21/2015): ICD-10 update of inactive term documented as of this encounter (statuses as of 07/31/2024) Immunizations Name Administration Dates Next Due TD [...] Sign Reading Time Taken Comments Blood Pressure 124/80 06/28/2024 1:45 PM EST Pulse 76 06/28/2024 1:45 PM EST Temperature - - Respiratory Rate 18 06/28/2024 1:45 PM EST Oxygen Saturation 92% 06/28/2024 1:45 PM EST Inhaled Oxygen Concentration - - Weight - - Height - - Body Mass Index - - documented in this encounter Nursing Notes * Kathya Otoole, RN - 06/28/2024 3:51 PM EST Patient tolerated remained for treatment without issue. Appointment made for Fulphila injection tomorrow. VAD with brisk blood return and flushed with 10 ml NSS and Heparin 5 ml (100 units/ml). Huberneedle removed intact. Safety and Risk for Injury Patient will remain free from injury. Ensure appropriate safety devices are available. Provide and maintain safe environment. Pt discharged in stable condition. * Kathya Otoole RN - 06/28/2024 3:20 PM EST Chair 10 Patient arrived for treatment after appt with Dr. Coyle Oriented patient to department. Reviewed medications and sequence of treatment. Accessed port with brisk blood return. Chemotherapy/Immunotherapy agents: CARBOPLATIN, KEYTRUDA, and TAXOL Consent for chemotherapy drug treatment complete, dated, and signed? yes, date - 06/14/24 Treatment lab parameters met? Yes Has treatment weight changed > than 10%? No Treatment preauthorized? Yes VITALS Filed Vitals: 06/28/24 1320 06/28/24 1325 BP: 146/83 166/98 Pulse: 79 84 Resp: 20 18 SpO2: 92% 93% BP Readings from Last 2 Encounters: 06/28/24 166/98 06/28/24 114/72 Pulse Readings from Last 2 Encounters: 06/28/24 84 06/28/24 82 Resp Readings from Last 2 Encounters: 06/28/24 18 06/24/24 18 SpO2 Readings from Last 2 Encounters: 06/28/24 93% 06/28/24 95% Temp Readings from Last 2 Encounters: 06/28/24 37.3 C (99.1 F) (Tympanic) 06/24/24 36.6 C (97.9 F) Urine protein: N/A Patient education completed for [...] are available. Provide and maintain safe environment. At 1259 Taxol started. 1318 Stopped in to check on patient to find her quite drowsy and with hives on her face and forehead. Turned off Taxol and started reaction protocol, started NSS bolus, administered Pepcid, Benadryl and Solu Cortef. Dr. Beard at bedside. Per Dr. Leonides Erazo to restart Taxolwhen patient feeling better. At 1345 taxol restarted. Patient tolerated remainder of treatment without issue. documented in this encounter Plan of Treatment Upcoming Encounters Date Type Department Care Team (Late st Contact Info) Description 08/05/2024 1:45 PM EST Telemedicine Genetics HemOn, [facility] [address] [place] [address] Sofia Eldridge, [place] [address] [facility] [place] [address] 08/18/2024 9:30 AM EST Laboratory Laboratory [facility] [address] [place] [phone] [place], Lab [address] [place] [address] 08/18/2024 10:00 AM EST Office Visit Hematology/Oncology [facility] [address] [place] [phone] Darryn Fong MD [address] [facility] [place] [address] 08/18/2024 11:00 AM EST Hem/Onc Treatment Hematology/Oncology Treatment, [place] [address] [facility] [place] [phone] Rayna, Chair 1 Hem Onc [address] [place] [address] Scheduled Procedures Name Priority Associated Diagnoses Date/Ti [...] this encounter Medical Devices Implanted Type Area Archival Studies Professor Device Identifier Shelf Expiration Date Model / Serial / Lot Mediport Power Mri 8fr [id number] - [id number] Implanted:Qty : 1 on 06/23/2024 by Rubén Hou MD at OR [facility] Right: Chest CR BARD : PERIPHERAL VASCULAR 06/19/2025 [id number] / / [id number] Port Implant W8f Poly Cath - [id number] Implanted:Qty : 1 on 06/23/2024 by Rubén Hou MD at OR [facility] CR BARD : PERIPHERAL VASCULAR [id number] 06/19/2025 [id number] / / [id number] documented as of this encounter Visit Diagnoses Diagnosis Malignant neoplasm of overlapping sites of left breast in female, estrogen receptor negative (HCC)- Primary Encounter for antineoplastic chemotherapy Prevention of chemotherapy-induced neutropenia documented in this encounter Administered Medications Inactive Administered Medications - up to 3 most recent administrations Medication Order MAR Action Action Date Dose Rate Site CARBOplatin (Paraplatin) 622 mg in D5W 250 mL infusion 622 mg (Target AUC = 5), IV Piggyback, at 510 mL/hr Administer over 30 Minutes, PROTECT FROM LIGHT, ONCE, 1 dose, On Fri06/28/24 at 1415Indications:Malignant neoplasm of overlapping sites of left breast in female, estrogen receptor negative (HCC),Encounter for antineoplastic chemotherapy,Prevention of chemotherapy-induced neutropenia Start Infusion 06/28/2024 2:35 PM EST 622 mg 510 mL/hr diphenhydrAMINE (Benadryl) cap 50 mg 50 mg, Oral, ONCE, On Fri06/28/24 at 1215, For 1 doseIndications:Malignant neoplasm of overlapping sites of left breast in female, estrogen receptor negative (HCC),Encounter for antineoplastic chemotherapy,Prevention of chemotherapy-induced neutropenia Given 06/28/2024 11:22 AM EST 50 mg diphenhydrAMINE (Benadryl) inj 50 mg 50 mg, IV Push, ONCE PRN Other, Hypersensitivity Reaction, Starting on Fri06/28/24 at 1107, Until Fri06/28/24 at 2007, For 24 hoursIndications:Malignant neoplasm of overlapping sites of left breast in female, estrogen receptor negative (HCC),Encounter for antineoplastic chemotherapy,Prevention of chemotherapy-induced neutropenia Given 06/28/2024 1:23 PM EST 50 mg Famotidine (Pepcid) tab 20 mg 20 mg, Oral, ONCE, On Fri06/28/24 at 1215, For 1 doseIndications:Malignant neoplasm of overlapping sites of left breast in female, estrogen receptor negative (HCC),Encounter for antineoplastic chemotherapy,Prevention of chemotherapy-induced neutropenia Given 06/28/2024 11:22 AM EST 20 mg Fosaprepitant Dimeglumine (Emend) 150 mg, ondansetron (Zofran) 16 mg, dexamethasone sodium phosphate 12 mg in NSS 250 mL Infusion 150 mg, IV Piggyback, ONCE, 1 dose, On Fri06/28/24 at 1215, Administer over 30 Minutes, Infuse over 30 minutes. Give 30 minutes prior to chemotherapy.Indications:Ma lignant neoplasm of overlapping sites of left breast in female, estrogen receptor negative (HCC),Encounter for antineoplastic chemotherapy,Prevention of chemotherapy-induced neutropenia Start Infusion 06/28/2024 11:26 AM EST 150 mg 538.4 mL/hr hEParin 100 UNIT/ML Lock Flush inj 500 Units 500 Units (5 mL), IV Lock, PRN Other, IV Flush, Starting on Fri06/28/24 at 1107, Until Fri06/28/24 at 2006, For 24 hours, Do not flush if lock, PICC, or central line not in place; IV infusing or unable to flush.Indications:Malignant neoplasm of overlapping sites of left breast in female, estrogen receptor negative (HCC),Encounter for antineoplastic chemotherapy,Prevention of chemotherapy-induced neutropenia Given 06/28/2024 3:10 PM EST 500 Units Hydrocortisone Sod Suc (PF) (Solu-Cortef) inj 100 mg 100 mg, IV Push, ONCE PRN Other, Hypersensitivity Reaction, Starting on Fri06/28/24 at 1107, Until Fri06/28/24 at 2006, For 24 hoursIndications:Malignant neoplasm of overlapping sites of left breast in female, estrogen receptor negative (HCC),Encounter for antineoplastic chemotherapy,Prevention of chemotherapy-induced neutropenia Given 06/28/2024 1:20 PM EST 100 mg NSS infusion Intravenous, at 50 mL/hr, PRN, Starting on Fri06/28/24 at 1215, Until Fri06/28/24 at 2006, Maintenance lineIndications:Malignant neoplasm of overlapping sites of left breast in female, estrogen receptor negative (HCC),Encounter for antineoplastic chemotherapy,Prevention of chemotherapy-induced neutropenia Start Infusion 06/28/2024 11:10 AM EST 50 mL/hr PACLitaxel (Taxol) 368 mg in NSS 500 mL infusion 368 mg (rounded from 367.5 mg = 175 mg/m2 2.1 m2 Treatment Plan BSA from Recorded weight), IV Piggyback, ONCE, 1 dose, On Fri06/28/24 at 1315, Administer over 60 Minutes, Administer through 0.22 micron low protein binding filter!Indications:Malignan t neoplasm of overlapping sites of left breast in female, estrogen receptor negative (HCC),Encounter for antineoplastic chemotherapy,Prevention of chemotherapy-induced neutropenia Restarted 06/28/2024 1:46 PM EST 510 mL/hr Start Infusion 06/28/2024 12:59 PM EST 368 mg 510 mL/h r Pembrolizumab (Keytruda) 200 mg in NSS 100 mL infusion 200 mg, IV Piggyback, ONCE, 1 dose, On Fri06/28/24 at 1245, Administer over 30 Minutes, Infuse through 0.2 micron filter.Indications:Malignant neoplasm of overlapping sites of left breast in female, estrogen receptor negative (HCC),Encounter for antineoplastic chemotherapy,Prevention of chemotherapy-induced neutropenia Start Infusion 06/28/2024 12:09 PM EST 200 mg 226 mL/hr sodium chloride 0.9 % flush central line 10 mL 10 mL, IV Push, PRN Other, IV Flush, Starting on Fri06/28/24 at 1107, Until Fri06/28/24 at 2007, For 24 hours, Do not flush if lock, PICC, or central line not in place; IV infusing or unable to flush.Indications:Malignant neoplasm of overlapping sites of left breast in female, estrogen receptor negative (HCC),Encounter for antineoplastic chemotherapy,Prevention of chemotherapy-induced neutropenia Given 06/28/2024 3:10 PM EST 10 mL documented in this encounter Care Teams Motor Hotel Manager Relationship Specialty Start Date End Date Jewell Leyva PA-C [address] [place] [address] PCP - General Physician Missile And Missile Checkout Technician 05/10/24 documented as of this encounter
--- OUTSIDE RECORDS SUMMARY | 2024-10-09 06:33 | External Medical Summary ---
Author Name Unknown Address Unknown Organization K09:[facility] [place] [address] Laboratory Report Ordering Provider Test Date Status JOCY DILL 08/18/2024 09:26:00 Final Observation Date Value Abnormality Reference (Units ) Status SYNC LEUKOCYTES IN BLOOD BY AUTOMATED COUNT 08/18/2024 09:26:00 11.27 Above high normal 4.00-10.80 (K/uL) Final Segs 08/18/2024 09:26:00 93.9 Above high normal 40.0-75.0 (%) Final Lymphs % 08/18/2024 09:26:00 2.9 Below low normal 18.0-42.0 (%) Final Monos 08/18/2024 09:26:00 3.0 1.0-11.0 (%) Final Eosinophils 08/18/2024 09:26:00 0.0 0.0-6.0 (%) Final Basos 08/18/2024 09:26:00 0.2 0.0-2.0 (%) Final Absolute Segs 08/18/2024 09:26:00 10.58 Above high normal 1.80-7.70 (K/uL) Final Lymphs, absolute 08/18/2024 09:26:00 0.33 Below low normal 1.00-4.80 (K/ul) Final Monos, Abs 08/18/2024 09:26:00 0.34 0.00-1.10 (K/uL) Final Eos, Abs 08/18/2024 09:26:00 0.00 0.00-0.70 (K/uL) Final Basos, Abs 08/18/2024 09:26:00 0.02 0.00-0.20 (K/uL) Final Performing Location [facility] [place] [address]
--- OUTSIDE RECORDS SUMMARY | 2024-10-09 06:33 | External Medical Summary | Summary of Care ---
Author Name Unknown Organization [facility] Address [address] [facility] [place] [address] Phone [phone] Care Team Providers Care Web Operations Specialist Name Role Phone Jewell Leyva Faye BELLO Primary Care Provider [phone] Reason for Visit * Reason Comments Chemotherapy [...] CYCLOPHOSPHAMD AUROMEDIC Celia Beard MD Hematology/Oncology Treatment, [address] [address] Phone: tel: fax: Referral ID Status Reason Start Date Expiration Date V isits Requested Visits Authorized [id number] Authorized 07/28/2024 12/18/2024 999 [id number] Encounter Details Date Type Department Care Team (Latest Contact Info) Description 06/28/2024 10:30 AM EST Hem/Onc Treatment Hematology/Oncolog y Treatment, [address] [address] Malignant neoplasm of overlapping sites [...] 1 08/14/2023 Food insecurity 05/31/2024 Overview: Per [facility] Protocol ASCUS with positive high risk [...] 08/05/2024 1:45 PM EST Telemedicine Genetics HemOn, [place] [address] [place] [address] Sofia Eldridge, [place] [address] [facility] [place] [address] 08/18/2024 9:30 AM EST Laboratory Laboratory [facility] [address] [place] [phone] [place], Lab [address] [place] [address] 08/18/2024 10:00 AM EST Office Visit Hematology/Oncology [facility] [address] [place] [phone] Darryn Fong MD 200 [facility] [place] [address] 08/18/2024 11:00 AM EST Hem/Onc Treatment Hematology/Oncology Treatment, [place] [address] [facility] [place] [phone] Rayna, Chair 1 Hem Onc [address] [place] [address] Scheduled Procedures Name Priority Associated Diagnoses Date/Ti [...] this encounter Medical Devices Implanted Type Area Editor Map Device Identifier Shelf Expiration Date Model / Serial / Lot Mediport Power Mri 8fr [id number] - [id number] Implanted:Qty : 1 on 06/23/2024 by Rubén Hou MD at OR [facility] Right: Chest CR BARD : PERIPHERAL VASCULAR 06/19/2025 [id number] / / [id number] Port Implant W8f Poly Cath - [id number] Implanted:Qty : 1 on 06/23/2024 by Rubén Hou MD at OR [facility] CR BARD : PERIPHERAL VASCULAR [id number] 06/19/2025 [id number] / / [id number] documented as of this encounter Visit Diagnoses [...] mL documented in this encounter Care Teams Web Operations Specialist Relationship Specialty Start Date End Date Jewell Leyva PA-C [address] [place] [address] PCP - General Physician Teachers Assistant 05/10/24 documented as of this encounter
--- OUTSIDE RECORDS SUMMARY | 2024-10-09 06:33 | External Medical Summary | Summary of Care ---
Author Name Unknown Organization [facility] Address [address] [facility] [address] Phone [phone] Care Team Providers Care Stars Coordinator Name Role Phone Jewell Leyva Faye BELLO Primary Care Provider [phone] Reason for Visit * Reason Comments Chemotherapy [...] AUROMEDIC Celia Beard MD Hematology/Oncology Treatment, [address] [place] [address] Phone: tel: fax: Referral ID Status Reason Start Date Expiration Date V isits Requested Visits Authorized [id number] Authorized 07/28/2024 12/18/[phone] Encounter Details Date Type Department Care Team (Latest Contact Info) Description 08/18/2024 11:00 AM EST Hem/Onc Treatment Hematology/Oncolog y Treatment, [address] [place] [address] Rayna, Chair 1 Hem Onc [address] [address] Malignant neoplasm of overlapping sites of left [...] Description 09/08/2024 9:30 AM EST Laboratory Laboratory [facility] [address] [place] [phone] [place], Lab Scenery [address] [facility] [place] [address] 09/08/2024 10:00 AM EST Office Visit Hematology/Oncology [facility] [place] [facility] [place] [phone] Shannon Ramos CRNP [address] [place] [address] [place] [address] 09/08/2024 10:45 AM EST Hem/Onc Treatment Hematology/Oncology Treatment, [place] [address] [place] [phone] Rayna, Chair 2 Hem Onc [facility] [address] [facility] [place] [address] Scheduled Procedures Name Priority Associated Diagnoses Date/Ti [...] this encounter Medical Devices Implanted Type Area Oracle Endeca Consultant Device Identifier Shelf Expiration Date Model / Serial / Lot Mediport Power Mri 8fr [id number] - [id number] Implanted:Qty : 1 on 06/23/2024 by Rubén Hou MD at OR [facility] Right: Chest CR BARD : PERIPHERAL VASCULAR 06/19/2025 [id number] / / [id number] Port Implant W8f Poly Cath - [id number] Implanted:Qty : 1 on 06/23/2024 by Rubén Hou MD at OR [facility] CR BARD : PERIPHERAL VASCULAR [id number] 06/19/2025 [id number] / / [id number] documented as of this encounter Visit Diagnoses [...] mL documented in this encounter Care Teams Stars Coordinator Relationship Specialty Start Date End Date GordonOctober EUGENIA Mckinney [address] [facility] [place] [address] PCP - General Physician Business Change Manager 05/10/24 documented as of this encounter
--- OUTSIDE RECORDS SUMMARY | 2024-10-09 06:33 | External Medical Summary | Summary of Care ---
Author Name Unknown Organization [facility] Address [address] [facility] [address] Phone [phone] Care Team Providers Care Converting Technician Name Role Phone Jewell Leyva Faye BELLO Primary Care Provider [phone] Reason for Visit * Reason Comments Chemotherapy [...] 1MCG MD PACLITAXEL INJECTION MD INJ CYCLOPHOSPHAMD AUROMEDIC Celia Beard MD Hematology/Oncology Treatment, [address] [place] [address] Phone: tel: fax: Referral ID Status Reason Start Date Expiration Date V isits Requested Visits Authorized [id number] Authorized 07/28/2024 12/18/[phone] Encounter Details Date Type Department Care Team (Latest Contact Info) Description 08/18/2024 11:00 AM EST Hem/Onc Treatment Hematology/Oncolog y Treatment, [address] [place] [address] Rayna, Chair 1 Hem Onc [address] [address] Malignant neoplasm of overlapping sites of left [...] Description 09/08/2024 9:30 AM EST Laboratory Laboratory [facility] [address] [place] [phone] [place], Lab [address] 200 [facility] [place] [address] 09/08/2024 10:00 AM EST Office Visit Hematology/Oncology [facility] [place] 200 [facility] [place] [phone] Shannon Ramos CRNP [address] [place] [address] [place] [address] 09/08/2024 10:45 AM EST Hem/Onc Treatment Hematology/Oncology Treatment, [place] [address] [place] [phone] Rayna, Chair 2 Hem Onc [facility] 200 [facility] [place] [address] Scheduled Procedures Name Priority Associated Diagnoses Date/Ti [...] encounter Medical Devices Implanted Type Area Assistant Chief Train Dispatcher Device Identifier Shelf Expiration Date Model / Serial / Lot Mediport Power Mri 8fr [id number] - [id number] Implanted:Qty : 1 on 06/23/2024 by Rubén Hou MD at OR [facility] Right: Chest CR BARD : PERIPHERAL VASCULAR 06/19/2025 [id number] / / [id number] Port Implant W8f Poly Cath - [id number] Implanted:Qty : 1 on 06/23/2024 by Rubén Hou MD at OR [facility] CR BARD : PERIPHERAL VASCULAR [id number] 06/19/2025 [id number] / / [id number] documented as of this encounter Visit Diagnoses [...] mL documented in this encounter Care Teams Converting Technician Relationship Specialty Start Date End Date GordonOctober EUGENIA Mckinney 200 [facility] [place] [address] PCP - General Physician Federal Judicial Law Clerk 05/10/24 documented as of this encounter
--- OUTSIDE RECORDS SUMMARY | 2024-10-09 06:33 | External Medical Summary | Summary of Care ---
Author Name Unknown Organization [facility] Address [address] [facility] [address] Phone [phone] Care Team Providers Care Air Filler Name Role Phone Jewell Leyva Faye BELLO Primary Care Provider [phone] Reason for Visit * Reason Comments Medication Administration Fulphila 6mg = 0.6mL * Episode Based Medications (Routine) - Authorized Specialty Diagnoses / Procedures Referred By Contyesica t Referred To Contact Diagnoses Malignant neoplasm of overlapping sites of left breast in female, estrogen receptor negative (HCC) Encounter for antineoplastic chemotherapy Prevention of chemotherapy-induced neutropenia Procedures IL DOXORUBIC HCL 10 MG VL CHEMO IL CARBOPLATIN INJECTION IL FOSAPREPITANT INJECTION IL INJ PEMBROLIZUMAB IL INJECTION, FULPHILA IL INJ, FILGRASTIM G-CSF 1MCG IL PACLITAXEL INJECTION IL INJ CYCLOPHOSPHAMD Celia Ma MD Hematology/Oncology Treatment, [address] [place] [address] Phone: tel: fax: Referral ID Status Reason Start Date Expiration Date V isits Requested Visits Authorized [id number] Authorized 07/28/2024 12/18/2024 999 99 Encounter Details Date Type Department Care Team (Latest Contact Info) Description 08/19/2024 4:00 PM EST Immunization/ Injection Hematology/Oncology Treatment, [address] [place] [address] Rayna, Chair 8 Hem Onc [address] [address] Malignant neoplasm of overlapping sites of left breast in female, estrogen receptor negative (HCC)*; Encounter for antineoplastic chemotherapy; Prevention of chemotherapy-induced neutropenia Allergies Active Allergy Reactions Criticality Noted Date Comments Vancomycin Low 03/16/2022 documented as of this encounter (statuses as of 08/20/2024) Medications MULTIVITAMINS PO TABS one a day [...] as of this encounter (statuses as of 08/20/2024) Active Problems Problem Noted Date Diagnosed Date [...] as of this encounter (statuses as of 08/20/2024) Resolved Problems Problem Noted Date Diagnosed Date Resolved Date Current mild episode of chente r depressive disorder without prior episode 08/19/2018 4 ABN PAP SMEAR-CERVIX 999 Encounter for supervision of other normal 05/28/2016 Overview (11/21/2015): ICD-10 update of inactive term documented as of this encounter (statuses as of 08/20/2024) Immunizations Name Administration Dates Next Due TD [...] Description 09/08/2024 9:30 AM EST Laboratory Laboratory [facility] [address] [place] [address] [place], Lab [facility] 200 [facility] [place] [id number] 09/08/2024 10:00 AM EST Office Visit Hematology/Oncology [facility] 200 [facility] [place] [phone] Shannon Ramos CRNP [address] [place] [address] 09/08/2024 10:45 AM EST Hem/Onc Treatment Hematology/Oncology Treatment, [place] [address] [place] [phone] Rayna, Chair 2 Hem Onc [facility] 200 [facility] [place] [address] Scheduled Procedures Name Priority Associated Diagnoses Date/Ti [...] encounter Medical Devices Implanted Type Area Manager Banquet Device Identifier Shelf Expiration Date Model / Serial / Lot Mediport Power Mri 8fr [id number] - [id number] Implanted:Qty : 1 on 06/23/2024 by Rubén Hou MD at OR [facility] Right: Chest CR BARD : PERIPHERAL VASCULAR 06/19/2025 [id number] / / [id number] Port Implant W8f Poly Cath - [id number] Implanted:Qty : 1 on 06/23/2024 by Rubén Hou MD at OR [facility] CR BARD : PERIPHERAL VASCULAR [id number] 06/19/2025 [id number] / / [id number] documented as of this encounter Visit Diagnoses [...] Upper documented in this encounter Care Teams Air Filler Relationship Specialty Start Date End Date Jewell Leyva PA-C 200 [facility] [place] [address] PCP - General Physician Quality Control Assistant 05/10/24 documented as of this encounter
--- OUTSIDE RECORDS SUMMARY | 2024-10-09 06:33 | External Medical Summary | Summary of Care ---
Author Name Unknown Organization [facility] Address [address] [place] [facility] [place] [place] [address] Phone [phone] Care Team Providers Care Curriculum Developer Name Role Phone Jewell Leyva Faye BELLO Primary Care Provider [phone] Reason for Visit * Reason Comments Chemotherapy [...] CYCLOPHOSPHAMD AUROMEDIC Celia Beard MD Hematology/Oncology Treatment, [address] [address] Phone: tel: fax: Referral ID Status Reason Start Date Expiration Date V isits Requested Visits Authorized [id number] Authorized 07/28/2024 12/18/2024 999 99 Encounter Details Date Type Department Care Team (Latest Contact Info) Description 06/28/2024 10:30 AM EST Hem/Onc Treatment Hematology/Oncolog y Treatment, [address] [address] Malignant neoplasm of overlapping sites [...] 1 08/14/2023 Food insecurity 05/31/2024 Overview: Per [facility] Protocol ASCUS with positive high risk [...] 08/05/2024 1:45 PM EST Telemedicine Genetics HemOn, [facility] [address] [place] [address] Sofia Eldridge, [place] [address] [facility] [place] [address] 08/18/2024 9:30 AM EST Laboratory Laboratory [facility] [address] [place] [phone] [place], Lab [address] [place] [address] 08/18/2024 10:00 AM EST Office Visit Hematology/Oncology [facility] [address] [place] [phone] Darryn Fong MD 200 [facility] [place] [address] 08/18/2024 11:00 AM EST Hem/Onc Treatment Hematology/Oncology Treatment, [place] [address] [facility] [place] [phone] Rayna, Chair 1 Hem Onc [address] [place] [address] Scheduled Procedures Name Priority Associated Diagnoses Date/Ti [...] this encounter Medical Devices Implanted Type Area Car Clerk Pullman Device Identifier Shelf Expiration Date Model / Serial / Lot Mediport Power Mri 8fr [id number] - [id number] Implanted:Qty : 1 on 06/23/2024 by Rubén Hou MD at OR [facility] Right: Chest CR BARD : PERIPHERAL VASCULAR 06/19/2025 [id number] / / [id number] Port Implant W8f Poly Cath - [id number] Implanted:Qty : 1 on 06/23/2024 by Rubén Hou MD at OR [facility] CR BARD : PERIPHERAL VASCULAR [id number] 06/19/2025 [id number] / / [id number] documented as of this encounter Visit Diagnoses [...] mL documented in this encounter Care Teams Curriculum Developer Relationship Specialty Start Date End Date Jewell Leyva PA-C [address] [place] [address] PCP - General Physician Revenue Inspector 05/10/24 documented as of this encounter
--- OUTSIDE RECORDS SUMMARY | 2024-10-09 06:33 | External Medical Summary | Summary of Care ---
Author Name Unknown Organization [facility] Address [address] [facility] [address] Phone [phone] Care Team Providers Care Gear Tester Name Role Phone Jewell Leyva EUGENIA Primary Care Provider [phone] Reason for Visit * Reason Onset Date Comments Appointment 08/16/2024 Ajit Encounter Details Date Type Department Care Team (Late st Contact Info) Description 08/16/2024 Telephone Hematology/Oncology [facility] 200 [facility] [place] [phone] Darryn Fong MD 200 [place] [address] Appointment (Ajit) Allergies Active Allergy Reactions Criticality Noted Date Comments Vancomycin Low 03/16/2022 documented as of this encounter (statuses as of 08/16/2024) Medications MULTIVITAMINS PO TABS one a day [...] as of this encounter (statuses as of 08/16/2024) Active Problems Problem Noted Date Diagnosed Date Dehydration 07/05/2024 Malignant neoplasm of overla pping sites of left breast in female, estrogen receptor negative 06/14/2024 Encounter for antineoplastic chemotherapy 2023 Prevention of chemotherapy-induced neutropenia 1 08/14/2023 Food insecurity 05/31/2024 Overview: Per [facility] Protocol ASCUS with positive high risk HPV cervical 06/04 Major depressive disorder, r ecurrent severe without psychotic features 04/10/2023 Major depressive disorder, single episode, moder ate 06/07/2021 Encounter for other general counseling or advice on contraception 04/27/2010 Overview (04/20/2024): ICD-10 update of inactive term documented as of this encounter (statuses as of 08/16/2024) Resolved Problems Problem Noted Date Diagnosed Date Resolved Date Current mild episode of chente r depressive disorder without prior episode 08/19/2018 4 ABN PAP SMEAR-CERVIX 999 Encounter for supervision of other normal 05/28/2016 Overview (11/21/2015): ICD-10 update of inactive term documented as of this encounter (statuses as of 08/16/2024) Immunizations Name Administration Dates Next Due TD [...] encounter Miscellaneous Notes * Telephone Encounter - Birgit Tafoya RN - 08/16/2024 12:51 PM EST Called patient- she will come today at 3pm. * Telephone Encounter - Salma Samuel OSA - 08/16/2024 11:43 AM EST Pt called in to return Phone call to Birgit she is having pain around her flush and would like to beseen Please give her a call back documented in this encounter Plan of Treatment Upcoming Encounters Date Type Department Care Team (Late st Contact Info) Description 08/16/2024 3:00 PM EST Nurse Only Hematology/Oncology [facility] Rayna [place] [address] [place] [phone] Rayna, Nurse Hem Onc [facility] [address] [place] [address] [place] [address] 08/18/2024 9:30 AM EST Laboratory Laboratory [facility] Rayna [place] [address] [place] [phone] Rayna Lab [facility] [address] [place] [address] [address] 08/18/2024 10:00 AM EST Office Visit Hematology/Oncology [facility] 200 [facility] [place], [place] [address] Darryn Fong MD 200 [facility] [place] [address] 08/18/2024 11:00 AM EST Hem/Onc Treatment Hematology[facility]Oncology [facility], [place] [facility] [address] Rayna, Chair 1 Hem Onc [facility] 200 [facility] [place], [place] [address] Scheduled Procedures Name Priority Associated Diagnoses Date/Ti [...] this encounter Medical Devices Implanted Type Area Hay Chopper Device Identifier Shelf Expiration Date Model / Serial / Lot Mediport Power Mri 8fr [id number] - [id number] Implanted:Qty : 1 on 06/23/2024 by Rubén Hou MD at OR [facility] Right: Chest CR BARD : PERIPHERAL VASCULAR 06/19/2025 [id number] / / [id number] Port Implant W8f Poly Cath - [id number] Implanted:Qty : 1 on 06/23/2024 by Rubén Hou MD at OR [facility] CR BARD : PERIPHERAL VASCULAR [id number] 06/19/2025 [id number] / / [id number] documented as of this encounter Care Teams Gear Tester Relationship Specialty Start Date End Date Jewell Leyva PA-C 200 [facility] [place] [address] PCP - General Physician Yarn Washer 05/10/24 documented as of this encounter
--- OUTSIDE RECORDS SUMMARY | 2024-10-09 06:33 | External Medical Summary | Summary of Care ---
Author Name Unknown Organization [facility] Address [address] [place] [facility] [place] [address] Phone [phone] Care Team Providers Care Senior Brand Manager Name Role Phone Jewell Leyva Faye BELLO Primary Care Provider [phone] Reason for Visit * Reason Comments Chemotherapy [...] 1MCG VA PACLITAXEL INJECTION VA INJ CYCLOPHOSPHAMD AUROMEDIC Celia Beard MD Hematology/Oncology Treatment, [address] [address] Phone: tel: fax: Referral ID Status Reason Start Date Expiration Date V isits Requested Visits Authorized [id number] Authorized 07/28/2024 12/18/2024 999 99 Encounter Details Date Type Department Care Team (Latest Contact Info) Description 06/28/2024 10:30 AM EST Hem/Onc Treatment Hematology/Oncolog y Treatment, [address] [address] Malignant neoplasm of overlapping sites [...] 1 08/14/2023 Food insecurity 05/31/2024 Overview: Per [facility] Protocol ASCUS with positive high risk [...] 08/05/2024 1:45 PM EST Telemedicine Genetics HemOn, [facility] 100 [place] [address] Sofia Eldridge, [place] [address] [facility] [place] [address] 08/18/2024 9:30 AM EST Laboratory Laboratory [facility] [address] [place] [phone] [place], Lab [address] [place] [address] 08/18/2024 10:00 AM EST Office Visit Hematology/Oncology [facility] [address] [place] [phone] Darryn Fong MD 200 [facility] [place] [address] 08/18/2024 11:00 AM EST Hem/Onc Treatment Hematology/Oncology Treatment, [place] [address] [facility] [place] [phone] Rayna, Chair 1 Hem Onc [address] [place] [address] Scheduled Procedures Name Priority Associated Diagnoses Date/Ti [...] this encounter Medical Devices Implanted Type Area Garnetter Device Identifier Shelf Expiration Date Model / Serial / Lot Mediport Power Mri 8fr [id number] - [id number] Implanted:Qty : 1 on 06/23/2024 by Rubén Hou MD at OR [facility] Right: Chest CR BARD : PERIPHERAL VASCULAR 06/19/2025 [id number] / / [id number] Port Implant W8f Poly Cath - [id number] Implanted:Qty : 1 on 06/23/2024 by Rubén Hou MD at OR [facility] CR BARD : PERIPHERAL VASCULAR [id number] 06/19/2025 [id number] / / [id number] documented as of this encounter Visit Diagnoses [...] mL documented in this encounter Care Teams Senior Brand Manager Relationship Specialty Start Date End Date Jewell Leyva PA-C [address] [place] [address] PCP - General Physician Thread Checker 05/10/24 documented as of this encounter
--- OUTSIDE RECORDS SUMMARY | 2024-10-09 06:33 | External Medical Summary ---
Author Name Unknown Address Unknown Organization : Laboratory Report Ordering Provider Test Date Status STEPH CARTER 08/18/2024 09:26:00 Correction - 6mL K2EDTA or K3EDTA purpl e top blood collection tube
- Label with full name, MRN, , and collection date
- Send sample at room temperature to [facility] or [facility] referred lab testing for processing and send out; do not freeze
- A copy of the online requisition form will be submitted to Referred Lab by Sofia Beebe MS
*Insurance bill Observation Date Value Abnormality Reference (Units ) Status REFERENCE LAB SCANNED REPORT 08/18/2024 09:26:00 RESULT SCAN Final Performing Location
--- OUTSIDE RECORDS SUMMARY | 2024-10-09 06:34 | External Medical Summary | Summary of Care ---
Author Name Unknown Organization [facility] Address [address] [facility] [address] Phone [phone] Care Team Providers Care Gaming Manager Name Role Phone Gordon Jewell Faye BELLO Primary Care Provider [phone] Reason for Visit * Reason Comments Nurse Documentation Chemo held for jesse gamino CHAPIN Encounter Details Date Type Department Care Team (Late st Contact Info) Description 07/19/2024 9:30 AM EST Hem/Onc Treatment Hematology/Oncology Treatment, [address] [place] [address] Rayna, Chair 8 Hem On[address] [address] Arrived Allergies Active Allergy Reactions Criticality Noted Date Comments Vancomycin Low 03/16/2022 documented as of this encounter (statuses as of 07/19/2024) Medications MULTIVITAMINS PO TABS one a day [...] as of this encounter (statuses as of 07/19/2024) Active Problems Problem Noted Date Diagnosed Date Dehydration 07/05/2024 Malignant neoplasm of overla pping sites of left breast in female, estrogen receptor negative 06/14/2024 Encounter for antineoplastic chemotherapy 2023 Prevention of chemotherapy-induced neutropenia 1 08/14/2023 Food insecurity 05/31/2024 Overview: Per [facility] Protocol ASCUS with positive high risk HPV cervical 06/04 Major depressive disorder, r ecurrent severe without psychotic features 04/10/2023 Major depressive disorder, single episode, moder ate 06/07/2021 Encounter for other general counseling or advice on contraception 04/27/2010 Overview (04/20/2024): ICD-10 update of inactive term documented as of this encounter (statuses as of 07/19/2024) Resolved Problems Problem Noted Date Diagnosed Date Resolved Date Current mild episode of chente r depressive disorder without prior episode 08/19/2018 4 ABN PAP SMEAR-CERVIX 999 Encounter for supervision of other normal 05/28/2016 Overview (11/21/2015): ICD-10 update of inactive term documented as of this encounter (statuses as of 07/19/2024) Immunizations Name Administration Dates Next Due TD [...] of this encounter Nursing Notes * Sulema Youngblood, RN - 07/19/2024 9:57 AM EST Chair 3 Pt presented for 2nd cycle of chemo. ALT 90. Pt denies having alcohol or Tylenol. Dr. Vega instructed to hold chemo today and delay treatment for one week. Pt informed and verbalized understanding. documented in this encounter Plan of Treatment Upcoming Encounters Date Type Department Care Team (Late st Contact Info) Description 07/28/2024 10:30 AM EST Laboratory Laboratory [facility] [address] [place] [address] [place], Lab [facility] 200 [facility] [place] [address] 07/28/2024 11:00 AM EST Office Visit Hematology/Oncology [facility] [place] 200 [facility] [place] [phone] Shannon Ramos CRNP [facility] [place] [address] 07/28/2024 11:30 AM EST Hem/Onc Treatment Hematology/Oncology Treatment, [place] [address] [place] [address] Rayna, Chair 6 Hem Onc [facility] 200 [facility] [place] [address] 08/02/2024 8:30 AM EST Office Visit Hematology/Oncology [address] [place] 200 [facility] [place] [address] Ama Barksdale CRNP [address] [place] [address] 08/05/2024 1:45 PM EST Telemedicine Genetics HemOnc, [facility] 100 [place] [address] Sofia Eldridge, MS [address] [place] [address] Scheduled Procedures Name Priority Associated Diagnoses Date/Ti [...] 07/23, 12/21/2015, Additional history exists Diabetes Screening 07/19/2027 07/19/2024, 1 09/05/2023, 06/28/2024, Additional history exists Cervical Cancer Screening 06/04/2028 [...] this encounter Medical Devices Implanted Type Area [employer] Device Identifier Shelf Expiration Date Model / Serial / Lot Mediport Power Mri 8fr [id number] - [id number] Implanted:Qty : 1 on 06/23/2024 by Rubén Hou MD at OR [facility] Right: Chest CR BARD : PERIPHERAL VASCULAR 06/19/2025 [id number] / / [id number] Port Implant W8f Poly Cath - [id number] Implanted:Qty : 1 on 06/23/2024 by Rubén Hou MD at OR [facility] CR BARD : PERIPHERAL VASCULAR [id number] 06/19/2025 [id number] / / [id number] documented as of this encounter Care Teams Gaming Manager Relationship Specialty Start Date End Date Gordon October EUGENIA Mckinney 200 [facility] [place] [address] PCP - General Physician Manager Acquisition 05/10/24 documented as of this encounter
--- OUTSIDE RECORDS SUMMARY | 2024-10-09 06:34 | External Medical Summary | Summary of Care ---
Author Name Unknown Organization [facility] Address [address] [place] [facility] [place] [address] Phone [phone] Care Team Providers Care Pickle Sorter Name Role Phone Jewell Leyva Faye BELLO Primary Care Provider [phone] Reason for Visit * Reason Comments Chemotherapy Keytruda, Taxol and Carbo * Episode Based Medications (Routine) - Authorized Specialty Diagnoses / Procedures Referred By Contyesica t Referred To Contact Diagnoses Malignant neoplasm of overlapping sites of left breast in female, estrogen receptor negative (HCC) Encounter for antineoplastic chemotherapy Prevention of chemotherapy-induced neutropenia Procedures IA DOXORUBIC HCL 10 MG VL CHEMO IA CARBOPLATIN INJECTION IA FOSAPREPITANT INJECTION IA INJ PEMBROLIZUMAB IA INJECTION, FULPHILA IA INJ, FILGRASTIM G-CSF 1MCG IA PACLITAXEL INJECTION IA INJ CYCLOPHOSPHAMD AUROMEDIC Celia Beard MD Hematology/Oncology Treatment, [address] [address] Phone: tel: fax: Referral ID Status Reason Start Date Expiration Date V isits Requested Visits Authorized [id number] Authorized 07/28/2024 12/18/2024 999 [id number] Encounter Details Date Type Department Care Team (Latest Contact Info) Description 06/28/2024 10:30 AM EST Hem/Onc Treatment Hematology/Oncolog y Treatment, [address] [address] Malignant neoplasm of overlapping sites [...] 1 08/14/2023 Food insecurity 05/31/2024 Overview: Per [facility] Protocol ASCUS with positive high risk [...] 08/05/2024 1:45 PM EST Telemedicine Genetics Hem[place], [facility] [address] [place] [address] Sofia Eldridge, MS [facility] [place] [address] 08/18/2024 9:30 AM EST Laboratory Laboratory [facility] [address] [place] [phone] [place], Lab [address] [place] [address] 08/18/2024 10:00 AM EST Office Visit Hematology/Oncology [facility] [address] [place] [phone] Darryn Fong MD [address] [facility] [place] [address] 08/18/2024 11:00 AM EST Hem/Onc Treatment Hematology/Oncology Treatment, [place] [address] [facility] [place] [phone] Rayna, Chair 1 Hem Onc [address] [place] [address] Scheduled Procedures Name Priority Associated Diagnoses Date/Ti [...] this encounter Medical Devices Implanted Type Area Scrap Sawyer Device Identifier Shelf Expiration Date Model / Serial / Lot Mediport Power Mri 8fr [id number] - [id number] Implanted:Qty : 1 on 06/23/2024 by Rubén Hou MD at OR [facility] Right: Chest CR BARD : PERIPHERAL VASCULAR 06/19/2025 [id number] / / [id number] Port Implant W8f Poly Cath - [id number] Implanted:Qty : 1 on 06/23/2024 by Rubén Hou MD at OR [facility] CR BARD : PERIPHERAL VASCULAR [id number] 06/19/2025 [id number] / / [id number] documented as of this encounter Visit Diagnoses [...] mL documented in this encounter Care Teams Pickle Sorter Relationship Specialty Start Date End Date Jewell Leyva PA-C [address] [place] [address] PCP - General Physician Repair Supervisor 05/10/24 documented as of this encounter
--- OUTSIDE RECORDS SUMMARY | 2024-10-09 06:34 | External Medical Summary ---
Author Name Unknown Address Unknown Organization K[facility] [place] [address] Laboratory Report Ordering Provider Test Date Status JOCY DILL 07/28/2024 10:42:27 Final Observation Date Value Abnormality Reference (Units ) Status SYNC LEUKOCYTES IN BLOOD BY AUTOMATED COUNT 07/28/2024 10:42:27 10.88 Above high normal 4.00-10.80 (K/uL) Final Segs 07/28/2024 10:42:27 90.8 Above high normal 40.0-75.0 (%) Final Lymphs % 07/28/2024 10:42:27 7.3 Below low normal 18.0-42.0 (%) Final Monos 07/28/2024 10:42:27 1.8 1.0-11.0 (%) Final Eosinophils 07/28/2024 10:42:27 0.0 0.0-6.0 (%) Final Basos 07/28/2024 10:42:27 0.1 0.0-2.0 (%) Final Absolute Segs 07/28/2024 10:42:27 9.88 Above high normal 1.80-7.70 (K/uL) Final Lymphs, absolute 07/28/2024 10:42:27 0.79 Below low normal 1.00-4.80 (K/ul) Final Monos, Abs 07/28/2024 10:42:27 0.20 0.00-1.10 (K/uL) Final Eos, Abs 07/28/2024 10:42:27 0.00 0.00-0.70 (K/uL) Final Basos, Abs 07/28/2024 10:42:27 0.01 0.00-0.20 (K/uL) Final Performing Location [facility] [address]
--- OUTSIDE RECORDS SUMMARY | 2024-10-09 06:34 | External Medical Summary | Summary of Care ---
Author Name Unknown Organization [facility] Address [address] [place] [address] Phone [phone] Care Team Providers Care Corporate Librarian Name Role Phone Jewell Leyva EUGENIA Primary Care Provider Reason for Visit * Reason Comments Chemotherapy Chemo/recheck Encounter Details Date Type Department Care Team (Late st Contact Info) Description 07/28/2024 11:00 AM EST Office Visit Hematology/Oncology [facility] [address] [place] [address] Shannon Ramos, SENDY [address] [facility] [place] [phone] Malignant neoplasm of overlapping sites of left breast in female, estrogen receptor negative (HCC)* Allergies Active Allergy Reactions Criticality Noted Date Comments Vancomycin Low 03/16/2022 documented as of this encounter (statuses as of 07/28/2024) Medications MULTIVITAMINS PO TABS one a day [...] as needed for Nausea. 30 Tablet 3 11/26/20 24 Active Additional Information Patient not [...] as of this encounter (statuses as of 07/28/2024) Active Problems Problem Noted Date Diagnosed Date Dehydration 07/05/2024 Malignant neoplasm of overla pping sites of left breast in female, estrogen receptor negative 06/14/2024 Encounter for antineoplastic chemotherapy 2023 Prevention of chemotherapy-induced neutropenia 1 08/14/2023 Food insecurity 05/31/2024 Overview: Per [facility] Protocol ASCUS with positive high risk HPV cervical 06/04 Major depressive disorder, r ecurrent severe without psychotic features 04/10/2023 Major depressive disorder, single episode, moder ate 06/07/2021 Encounter for other general counseling or advice on contraception 04/27/2010 Overview (04/20/2024): ICD-10 update of inactive term documented as of this encounter (statuses as of 07/28/2024) Resolved Problems Problem Noted Date Diagnosed Date Resolved Date Current mild episode of chente r depressive disorder without prior episode 08/19/2018 4 ABN PAP SMEAR-CERVIX 999 Encounter for supervision of other normal 05/28/2016 Overview (11/21/2015): ICD-10 update of inactive term documented as of this encounter (statuses as of 07/28/2024) Immunizations Name Administration Dates Next Due TD [...] Sign Reading Time Taken Comments Blood Pressure 134/84 07/28/2024 10:59 AM EST Pulse 93 07/28/2024 10:59 AM EST Temperature 36.8 C (98.2 F) 07/28/2024 10:[address] Respiratory Rate - - Oxygen Saturation 94% 07/28/2024 10:59 AM EST Inhaled Oxygen Concentration - - Weight 93.5 kg (206 lb 1.6 oz) 07/28/2024 10:59 AM EST Height - - Body Mass Index 34.26 06/24/2024 3:07 PM EST documented in this encounter Progress Notes * Shannon Ramos CRNP - 07/28/2024 10:58 AM EST Hematology/Oncology Outpatient Clinic [place] [address] Name: Radha Fung Date: 07/28/2024 C CHIEF COMPLAINT: Radha Fung is a 48 year old female patient of Dr. Beard here today for f/u visit She is scheduled to see Dr. Fong in 3 weeks From Patient chart confirmed history with patient. HEMATOLOGY/ONCOLOGY DIAGNOSIS: Left breast invasive ductal carcinoma, grade 3 TNBC ( ER negative, SD weak mostly negative , HER2 Monroe negative 1+ IHC) DATE OF DIAGNOSIS: 06/02/24 CURRENT TREATMENT: Pembrolizumab 200 mg, carboplatin AUC 5 and paclitaxel 175 mg/m2 to be given on day 1 of cycles 1-4with pegfilgrastim 6 mg SQ injection given on day 2 of each cycle (06/28/24 - ) Followed by Pembrolizumab 200 mg + Doxorubicin + Cyclophosphamide q21 Days x 12 Weeks, Followed by Surgery ONCOLOGY HISTORY: She was recently seen by Dr. Lindsay on 06/08/2024 and referred to Medical Oncology for consideration for neoadjuvant chemotherapy to treat this highly aggressive and rapidly enlarging mass biopsy-proven to be Left breast invasive ductal carcinoma, grade 3 TNBC ( ER negative, SD weak mostly negative, HER2 Monroe negative 1+ IHC). Initially this mass was felt to be a cyst and was aspirated on 05/27/2024 that revealed low volume hemorrhagic fluid, and upon microscopic examination of the direct smears and the cell block showed few clusters of cohesive cells with enlarged irregularly shaped nuclei, mitoses suspicious for malignancy in a background of necrotic and acute inflammatory cells. PATHOLOGY Final Diagnosis A. Breast, Left, Fine needle aspiration: Adequacy: Less than optimal- Evaluation limited by low volume and scant cellularity. Category: Suspicious for malignancy. Interpretation: Atypical epithelial cells, suspicious for carcinoma. See comment. Comment: The direct smears and histological sections of cell block demonstrate few clusters of cohesive cells with enlarged irregularly shaped nuclei, mitoses, and background necrosis. Abundant acuteinflammatory cells are also present in the background. Additional core biopsies are recommended. 06/02/2024: SURGICAL PATHOLOGY: [id number] Component Final Diagnosis A. Breast, Left, left breast 11:00 9cm FN - palpable, core biopsy: Invasive ductal carcinoma, histologic grade 3, associated extensive necrosis Estrogen Receptor (ER) protein expression is NEGATIVE <1% nuclear positivity COMMENT: Assay internal and external control immunoreactivity is appropriate. Progesterone Receptor (SD) protein expression is WEAKLY POSITIVE 10% nuclear positivity 1+ average intensity score (range 0 to 3+) HER2 oncoprotein expression is NEGATIVE ( 1+ average membranous intensity) 06/10/2024: Bilateral MRI breasts Impression Biopsy-proven left upper inner quadrant invasive ductal carcinoma. Multiple similar appearing masses surrounding and in direct continuity with the primary malignancy concerning for satellite masses. Hyperenhancement and thickening of the superomedial left breast skin concerning for dermal invasion. Asymmetric enlargement of left breast vasculature in comparison to the right concerning for neovascularization. Left axillary and internal mammary lymphadenopathy concerning for metastatic disease. PET/CT 06/15/24: IMPRESSION 1. Hypermetabolic left breast mass consistent with biopsy-proven invasive ductal carcinoma with associated left internal mammary kevin metastasis. 2. Prominent left axillary lymph nodes with background level activity are likely reactive. 3. No distant FDG avid metastasis. 06/22/24 Final Diagnosis A. Skin, Breast, Left, punch: Granulation tissue and granulomas with acute and chronic inflammation in deep dermis (see comment) No malignancy identified on this biopsy HISTORY OF PRESENT ILLNESS: Radha Fung is a 48 year old female with a history as outlined above. Currently here for f/u visit today accompanied by and consideration for C2D1 of treatment scheduled for today. Treatment delayed last week due to elevated liver enzymes.Denies mouth sores or pain, nausea or vomiting.Did have some some burning pain in her finger tips that is intermittent now."Much better" Did have some numbness in her feet that is currently resolved. Did get bone pain with her pegfilgrastim injection that resolved with Percocet. Does report fatigue. Eating and drinking well. Bowels are moving normally after initiating Senna. No urinary issues. She reports that the size of left breast cyst has improved. With position changes at work, mild dizziness noted. She is trying to drink more water. Past Medical History: Diagnosis Date Abnormal Papanicolaou smear of cervix and cervical HPV Malignant neoplasm of overlapping sites of left breast in female, estrogen receptor negative (HCC) 06/14/2024 Other anxiety states Varicella without complication Past Surgical History: Procedure Laterality Date COLONOSCOPY, DIAGNOSTIC (RECTUM) 04/11/2023 hemorrhoids/recall 10 years/COLONOSCOPY FLEXIBLE PROXIMAL DIAGNOSTIC performed by Rajendra Leon MD at ENDOSCOPY [facility] COLPOSCPY CERVIX W/BX AND EC 1997,1998 INSER TUNN ACC DEV;5 YRS/OLDER Right 06/23/2024 INSERT TUNNELED CENTRAL VENOUS ACCESS WITH SUBQ PORT performed by Rubén Hou MD at OR [facility] SURGICAL PROCEDURE ONLY Left 05/27/2024 Aspiration [...] Yes Partners: Male control/protection: I.U.D. Comment: zechariah placed 2016 Other Topics Concern Service No Blood [...] Insecurity: Food Insecurity Present (05/17/2024) Food Insecurity Do you need food for this week? (Adult - for ages 18 years and over): Yes Are you able to get enough food for your family? (Household - for ages 0-17 years): Not on file Does your family need food this week? (Household - for ages 0-17 years): Not on file Do you always have enough food for your family? (Household - for ages 0-17 years): Not on file Transportation Needs: No Transportation Needs (05/17/2024) Transportation [...] Stability Do you currently live in a usp or have no steady place to sleep [...] BY MOUTH EVERY MORNING 90 Tablet 1 No current facility-administered medications for this visit. REVIEW OF SYSTEMS: See HPI - otherwise negative OBJECTIVE: Filed Vitals: 07/28/24 1059 BP: 134/84 Pulse: 93 Temp: 36.8 C (98.2 F) TempSrc: Tympanic SpO2: 94% Weight: 93.5 kg (206 lb 1.6 oz) Wt Readings from Last 5 Encounters: 07/28/24 93.5 kg (206 lb 1.6 oz) 07/15/24 94.6 kg (208 lb 8 oz) 06/28/24 93.5 kg (206 lb 1.6 oz) 06/24/24 93.2 kg (205 lb 8 oz) 06/23/24 93.9 kg (207 lb) PHYSICAL EXAM: ECOG: Performance Status 0 = 100% Normal Activity General Appearance: Normal - Healthy appearing patient in no acute distress HEENT: Normal - No oral [...] orders placed or performed in visit on 07/28/24 COMPREHENSIVE METABOLIC PANEL Result Value Ref Range BUN 14 6 - 20 mg/dL CREATININE 0.7 0.5 - 1.0 mg/dL EGFR >90 >=60 mL/min SODIUM 139 135 - 146 mmol/L POTASSIUM 4.0 3.5 - 5.1 mmol/L CHLORIDE 104 98 - 107 mmol/L CO2 22 22 - 32 mmol/L ANION GAP 13 7 - 15 mmol/L GLUCOSE 134 (H) 70 - 120 mg/dL Albumin 4.4 3.8 - 5.0 g/dL AST 15 10 - 35 U/L Alkaline Phosphatase 119 35 - 130 U/L Bilirubin, Total 0.3 <=1.2 mg/dL CALCIUM 9.4 8.4 - 10.2 mg/dL Protein 7.1 6.0 - 8.3 g/dL ALT 31 10 - 35 U/L CBC Result Value Ref Range WBC 10.88 (H) 4.00 - 10.80 K/uL RBC 4.39 3.85 - 5.15 M/uL HGB 13.5 12.0 - 15.3 g/dL HCT 40.3 36.0 - 45.2 % MCV 91.8 81.5 - 97.5 fL MCH 30.8 27.0 - 34.0 pg MCHC 33.5 32.0 - 36.0 g/dL RDW 14.9 11.5 - 15.5 % PLT 219 140 - 400 K/uL MPV 10.0 6.6 - 11.1 fL DIFFERENTIAL, AUTOMATED Result Value Ref Range WBC 10.88 (H) 4.00 - 10.80 K/uL Neutrophils % 90.8 (H) 40.0 - 75.0 % Lymphocytes % 7.3 (L) 18.0 - 42.0 % Monocytes % 1.8 1.0 - 11.0 % Eosinophils % 0.0 0.0 - 6.0 % Basophils % 0.1 0.0 - 2.0 % Absolute Neutrophils 9.88 (H) 1.80 - 7.70 K/uL Absolute Lymphocytes 0.79 (L) 1.00 - 4.80 K/ul Absolute Monocytes 0.20 0.00 - 1.10 K/uL Absolute Eosinophils 0.00 0.00 - 0.70 K/uL Absolute Basophils 0.01 0.00 - 0.20 K/uL IMPRESSION/PLAN: Left breast invasive ductal carcinoma, grade 3 TNBC Prevention of chemotherapy induced neutropenia Currently completing neoadjuvant chemotherapy with Keytruda, Carbo, Taxol every 21 days. Presents today for consideration of C2D1 for today. Tolerating treatment plan well with no signs or symptoms of significant toxicity noted. Did experience some mild CIPN that is resolved and that will be closely monitored. Lab results reviewed. Elevated liver enzymes resolved. WBC elevated due from filgrastim Confirms taking dexamethasone as prescribed. Will receive Pegfilgrastim support D2 for prevention of chemotherapy induced neutropenia RTC in three weeks with Dr. Fong for chemo return + cbc, cmp, tsh SENDY Nicole documented in this encounter Nursing Notes * Matilda Watkins, TUBE WRAPPER - 07/28/2024 11:00 AM EST Patient identifed by name and [...] it for you? ALREADY ACTIVE Filed Vitals: 07/28/24 1059 BP: 134/84 Pulse: 93 Temp: 36.8 C (98.2 F) TempSrc: Tympanic SpO2: 94% Weight: 93.5 kg (206 lb 1.6 oz) Patient was instructed to not get [...] Care Team (Late st Contact Info) Description 07/29/2024 4:45 PM EST Immunization/Injection Hematology/Oncology Treatment[address] [place] [phone] 08/05/2024 1:45 PM EST Telemedicine Genetics HemOnc, [facility] [address] [place] [address] Sofia Eldridge, MS 132 [facility] [place] [address] 08/18/2024 9:30 AM EST Laboratory Laboratory [address] [place] [phone] Ray[place], Lab [address] [place] [address] 08/18/2024 10:00 AM EST Office Visit Hematology/Oncology [facility] [address] [facility] [place] [phone] Darryn Fong MD 200 [facility] [place] [address] 08/18/2024 11:00 AM EST Hem/Onc Treatment Hematology/Oncology [address] [phone] Rayna, Chair 1 Hem Onc [address] [place] [address] Scheduled Procedures Name Priority Associated Diagnoses Date/Ti me COLONOSCOPY FLEXIBLE PROXIMAL DIAGNOSTIC Recall Screen for colon cancer Health Maintenance Due Date Last Done Comments COVID-19 Vaccine (#1) 11/06/1979 Hepatitis B Vaccine (1 of 3 - 19+ 3-dose series) 1993 Cologuard 11/06/2019 Fecal Occult Blood Test 11/06/2019 Sigmoidoscopy 11/06/2019 Influenza Vaccine (FLU shot) (#1) 2024 Lipid [...] this encounter Medical Devices Implanted Type Area Maintenance Of Way Clerk Device Identifier Shelf Expiration Date Model / Serial / Lot Mediport Power Mri 8fr [id number] - [id number] Implanted:Qty : 1 on 06/23/2024 by Rubén Huo MD at OR [facility] Right: Chest CR BARD : PERIPHERAL VASCULAR 06/19/2025 [id number] / / [id number] Port Implant W8f Poly Cath - [id number] Implanted:Qty : 1 on 06/23/2024 by Rubén Hou MD at OR [facility] CR BARD : PERIPHERAL VASCULAR [id number] 06/19/2025 [id number] / / [id number] documented as of this encounter Visit Diagnoses Diagnosis Malignant neoplasm of overlapping sites of left breast in female, estrogen receptor negative (HCC)- Primary documented in this encounter Care Teams Corporate Librarian Relationship Specialty Start Date End Date Gordon October Faye, EUGENIA [address] [place], [place] [address] PCP - General Physician Ear Nose And Throat Specialist 05/10/24 documented as of this encounter
--- OUTSIDE RECORDS SUMMARY | 2024-10-09 06:34 | External Medical Summary ---
Author Name Unknown Address Unknown Organization [facility] [place] [address] Laboratory Report Ordering Provider Test Date Status JOCY DILL 07/28/2024 10:42:27 Final Observation Date Value Abnormality Reference (Units ) Status WBC, Total 07/28/2024 10:42:27 10.88 Above high normal 4 .00-10.80 (K/uL) Final RBC 07/28/2024 10:42:27 4.39 3.85-5.15 (M/uL) Final Hemoglobin 07/28/2024 10:42:27 13.5 12.0-15.3 (g/dL) Final HCT 07/28/2024 10:42:27 40.3 36.0-45.2 (%) Final MCV 07/28/2024 10:42:27 91.8 81.5-97.5 (fL) Final MCH 07/28/2024 10:42:27 30.8 27.0-34.0 (pg) Final MCHC 07/28/2024 10:42:27 33.5 32.0-36.0 (g/dL) Final RDW 07/28/2024 10:42:27 14.9 11.5-15.5 (%) Final Platelets 07/28/2024 10:42:27 219 140-400 (K /uL) Final MPV 07/28/2024 10:42:27 10.0 6.6-11.1 ( fL) Final Performing Location [facility] [place] [address]
--- OUTSIDE RECORDS SUMMARY | 2024-10-09 06:34 | External Medical Summary | Summary of Care ---
Author Name Unknown Organization [facility] Address [address] [place] [address] Phone [phone] Care Team Providers Care Publishing Editor Name Role Phone Jewell Leyva EUGENIA Primary Care Provider [phone] Reason for Visit * Reason Onset Date Comments Appointment 07/12/2024 Encounter Details Date Type Department Care Team (Late st Contact Info) Description 07/12/2024 Telephone Hematology/Oncology Treatment, [place] [address] [place] [address] Celia Beard MD Appointment Allergies Active Allergy Reactions Criticality Noted Date [...] hours prior to paclitaxel infusion. 12 Tablet Active Additional Information Patient not taking.Reported on 06/23/2024 Famotidine 20 MG Oral Tablet (Pepcid)Indicatio ns:Malignant neoplasm of overlapping sites of left breast in female, estrogen receptor negative (HCC),Encounter for antineoplastic chemotherapy,Prev ention of chemotherapy-jenae delphine neutropenia Take by mouth 1 Tablet 12 hours prior to paclitaxel infusion. 12 Tablet Active Additional Information Patient not taking.Reported on 06/23/2024 Prochlorperazine Maleate 10 MG Oral Tablet (Compazine)Indica tions:Malignant neoplasm of overlapping sites of left breast in female, estrogen receptor negative (HCC),Encounter for antineoplastic chemotherapy,Prev ention of chemotherapy-jenae delphine neutropenia Take 1 Tablet by mouth every 6 hours as needed for Nausea. 30 Tablet 5 Active Additional Information Patient not taking.Reported on [...] on 06/23/2024 dexAMETHasone 4 MG Oral Tablet (Decadron)Indicat ions:Malignant neoplasm of overlapping sites of left breast in female, estrogen receptor negative (HCC) Take 2 tablets by mouth for 2 days prior to chemotherapy ( as well as 2 tablets by mouth for 3 days after chemotherapy). 16 Tablet 024 Active Amoxicillin-Pot Clavulanate 875-125 MG Oral Tablet (Augmentin)Indica tions:Malignant neoplasm of overlapping sites of left breast in female, estrogen receptor negative (HCC) Take 1 Tablet by mouth in the morning and 1 Tablet before bedtime. 28 Tablet 024 Active oxyCODONE-Acetami nophen 5-325 MG Oral Tablet (Percocet)Indicat ions:Malignant neoplasm of overlapping sites of left breast in female, estrogen receptor negative (HCC) Take 2 Tablets by mouth every 6 hours as needed for Pain, Mild, Pain, Moderate or Pain, Severe. 90 Tablet 024 Active PARoxetine HCl 40 MG Oral Tablet (pAXil) Take 1 Tablet by mouth in the morning. 90 Tablet 1 024 2023 Discontinued documented as of this encounter (statuses as of 07/19/2024) Active Problems Problem Noted Date Diagnosed Date Dehydration 07/05/2024 Malignant neoplasm of overla pping sites of left breast in female, estrogen receptor negative 06/14/2024 Encounter for antineoplastic chemotherapy 2023 Prevention of chemotherapy-induced neutropenia 1 08/14/2023 Food insecurity 05/31/2024 Overview: Per [facility] Protocol ASCUS with positive high risk [...] Telephone Encounter - Birgit Tafoya RN - 07/12/2024 2:56 PM EST Called patient to discuss upcoming appts. Scheduling: - please add patient to see Ama for chemo/recheck 07/15 at noon - please cancel provider visit 07/19 - patient aware of above Thanks! documented in this encounter Plan of Treatment Upcoming Encounters Date Type Department Care Team (Late st Contact Info) Description 07/28/2024 10:30 AM EST Laboratory Laboratory [facility] [place] [address] [place] [phone] Rayna Lab [facility] 200 [facility] [place] [place] [address] 07/28/2024 11:00 AM EST Office Visit Hematology/Oncology [facility] [place] [address] [place] [phone] Shannon [facility] [place] [address] 07/28/2024 11:30 AM EST Hem/Onc Treatment Hematology/Oncology Treatment, [place] [address] [place] [phone] Rayna, Chair 6 Hem Onc [facility] 200 [facility] [place] [place] [address] 08/02/2024 8:30 AM EST Office Visit Hematology/Oncology [address] [place] 200 [place] [address] Ama Barksdale CRNP 400 [facility] [place] [address] 08/05/2024 1:45 PM EST Telemedicine Genetics [facility]c, [facility] [address] [place] [address] Sofia Eldridge, [place] [address] [place] [address] Scheduled Procedures Name Priority Associated Diagnoses Date/Ti [...] this encounter Medical Devices Implanted Type Area Briar Shop Supervisor Device Identifier Shelf Expiration Date Model / Serial / Lot Mediport Power Mri 8fr [id number] - [id number] Implanted:Qty : 1 on 06/23/2024 by Rubén Hou MD at OR [facility] Right: Chest CR BARD : PERIPHERAL VASCULAR 06/19/2025 [id number] / / [id number] Port Implant W8f Poly Cath - [id number] Implanted:Qty : 1 on 06/23/2024 by Rubén Hou MD at OR [facility] CR BARD : PERIPHERAL VASCULAR [id number] 06/19/2025 [id number] / / [id number] documented as of this encounter Care Teams Publishing Editor Relationship Specialty Start Date End Date Gordon Jewell EUGENIA Mckinney [address] [place] [address] PCP - General Physician Associate Professor Of Musicology 05/10/24 documented as of this encounter
--- OUTSIDE RECORDS SUMMARY | 2024-10-09 06:34 | External Medical Summary | Summary of Care ---
Author Name Unknown Organization [facility] Address [address] [facility] [place] [address] Phone [phone] Care Team Providers Care Hat Blocker Name Role Phone Jewell Leyva EUGENIA Primary Care Provider [phone] Encounter Details Date Type Department Care Team (Late st Contact Info) Description 07/19/2024 Orders Only Hematology/Oncology [address] [place] 200 [facility] [place] [phone] Alex Vega MD 200 [facility] [place] [address] Allergies Active Allergy Reactions Criticality Noted Date [...] 1 08/14/2023 Food insecurity 05/31/2024 Overview: Per [facility] Protocol ASCUS with positive high risk [...] Description 07/28/2024 10:30 AM EST Laboratory Laboratory [facility] [address] [place] [phone] Rayna, Lab [address] [place] [address] 07/28/2024 11:00 AM EST Office Visit Hematology/Oncology [facility] [place] [address] [place] [phone] Shannon [facility] [address] 07/28/2024 11:30 AM EST [facility] [address] [facility] [address] [place] [phone] Rayna, Chair 6 Hem Onc [address] [place] [address] 08/02/2024 8:30 AM EST Office Visit Hematology/Oncology [facility] 200 [facility] [place] [phone] Ama Barksdale CRNP [facility] [place] [address] 08/05/2024 1:45 PM EST Telemedicine Genetics HemOn, [facility] [address] [place] [address] Sofia Eldridge, MS [address] [place] [address] Scheduled Procedures Name Priority Associated Diagnoses Date/Ti [...] encounter Medical Devices Implanted Type Area Metal Fabricator Device Identifier Shelf Expiration Date Model / Serial / Lot Mediport Power Mri 8fr [id number] - [id number] Implanted:Qty : 1 on 06/23/2024 by Rubén Hou MD at OR [facility] Right: Chest CR BARD : PERIPHERAL VASCULAR 06/19/2025 [id number] / / [id number] Port Implant W8f Poly Cath - [id number] Implanted:Qty : 1 on 06/23/2024 by Rubén Hou MD at OR [facility] CR BARD : PERIPHERAL VASCULAR [id number] 06/19/2025 [id number] / / [id number] documented as of this encounter Care Teams Hat Blocker Relationship Specialty Start Date End Date GordonOctober EUGENIA Mckinney 200 [facility] [place] [address] PCP - General Physician Services Program Manager 05/10/24 documented as of this encounter
--- OUTSIDE RECORDS SUMMARY | 2024-10-09 06:34 | External Medical Summary | Summary of Care ---
Author Name Unknown Organization [facility] Address [address] [facility] [address] Phone [phone] Care Team Providers Care Shell Fisherman Name Role Phone Jewell Leyva Faye BELLO Primary Care Provider [phone] Reason for Visit * Reason Comments Chemotherapy C2D1 Keytruda, Carbo platin, Taxol * Episode Based Medications (Routine) - Pending Review Specialty Diagnoses / Procedures Referred By Jacobo t Referred To Contact Diagnoses Malignant neoplasm of overlapping sites of left breast in female, estrogen receptor negative (HCC) Encounter for antineoplastic chemotherapy Prevention of chemotherapy-induced neutropenia Procedures ND DOXORUBIC HCL 10 MG VL CHEMO ND CARBOPLATIN INJECTION ND FOSAPREPITANT INJECTION ND INJ PEMBROLIZUMAB ND INJECTION, FULPHILA ND INJ, FILGRASTIM G-CSF 1MCG ND PACLITAXEL INJECTION ND INJ CYCLOPHOSPHAMD Celia Ma MD Hematology/Oncology Treatment, [address] [address] Phone: tel: fax: Referral ID Status Reason Start Date Expiration Date V isits Requested Visits Authorized [id number] Pending Review 06/15/2024 09/15/2024 [id number] Encounter Details Date Type Department Care Team (Latest Contact Info) Description 07/28/2024 11:30 AM EST Hem/Onc Treatment Hematology/Oncolog y Treatment, [address] [phone] Rayna, Chair 6 Hem Onc [address] [place] [address] Malignant neoplasm of overlapping sites of left [...] 1 08/14/2023 Food insecurity 05/31/2024 Overview: Per [email or web address] Protocol ASCUS with positive high [...] Nursing Notes * Sulema Youngblood, RN - 07/28/2024 5:00 PM EST Goals: Patient will remain free from injury. Possible barriers to meeting goals: ambulation with IV pole Stability of the patient: Moderately stable - low risk of patient condition declining or worsening Summary regarding today's goals: Met: patient without injury during treatment today. Pt tolerated ordered meds well. No complaints. Discharged in stable condition. * Rylie, Sulema Starks RN - 07/28/2024 2:38 PM EST Chair [...] Description 07/29/2024 4:45 PM EST Immunization/Injection Hematology/Oncology [address] [place] [phone] 08/05/2024 1:45 PM EST Telemedicine Genetics HemOnc, [facility] [address] [place] [address] Sofia Eldridge, MS [address] [place] [address] 08/18/2024 9:30 AM EST Laboratory Laboratory [address] [place] [phone] Rayna, Lab [address] [place] [address] 08/18/2024 10:00 AM EST Office Visit Hematology/Oncology [address] [place] [phone] Darryn Fong MD [address] [place], [place] [address] [address] 08/18/2024 11:00 AM EST Hem/Onc Treatment Hematology/Oncology [address] [phone] Rayna, Chair 1 Hem Onc [address] [place] [address] Scheduled Procedures Name Priority Associated Diagnoses Date/Ti [...] this encounter Medical Devices Implanted Type Area Digital X Ray Service Engineer Device Identifier Shelf Expiration Date Model / Serial / Lot Mediport Power Mri 8fr [id number] - [id number] Implanted:Qty : 1 on 06/23/2024 by Rubén Hou MD at OR [facility] Right: Chest CR BARD : PERIPHERAL VASCULAR 06/19/2025 [id number] / / [id number] Port Implant W8f Poly Cath - [id number] Implanted:Qty : 1 on 06/23/2024 by Rubén Hou MD at OR [facility] CR BARD : PERIPHERAL VASCULAR [id number] 06/19/2025 [id number] / / [id number] documented as of this encounter Visit Diagnoses Diagnosis Malignant neoplasm of overlapping sites of left breast in female, estrogen receptor negative (HCC)- Primary Encounter for antineoplastic chemotherapy Prevention of chemotherapy-induced neutropenia documented in this encounter Administered Medications Active Administered Medications - up to 3 most recent administrations Medication Order MAR Action Action Date Dose Rate Site diphenhydrAMINE (Benadryl) inj 50 mg 50 mg, IV Push, ONCE PRN Other, Hypersensitivity Reaction, Starting on Fri07/28/24 at 1146, Until Fri07/29/24 at 1145, For 24 hoursIndications:Malignant neoplasm of overlapping sites of left breast in female, estrogen receptor negative (HCC),Encounter for antineoplastic chemotherapy,Prevention of chemotherapy-induced neutropenia EPINEPHrine 1 MG/ML inj 0.3 mg 0.3 mg, Intramuscular, ONCE PRN Other, Hypersensitivity Reaction or Anaphylaxis, Starting on Fri07/28/24 at 1146, Until Fri07/29/24 at 1145, For 24 hoursIndications:Malignant neoplasm of overlapping sites of left breast in female, estrogen receptor negative (HCC),Encounter for antineoplastic chemotherapy,Prevention of chemotherapy-induced neutropenia hEParin 100 UNIT/ML Lock Flush inj 500 Units 500 Units (5 mL), IV Lock, PRN Other, IV Flush, Starting on Fri07/28/24 at 1146, Until Fri07/29/24 at 1145, For 24 hours, Do not flush if lock, PICC, or central line not in place; IV infusing or unable to flush.Indications:Malignant neoplasm of overlapping sites of left breast in female, estrogen receptor negative (HCC),Encounter for antineoplastic chemotherapy,Prevention of chemotherapy-induced neutropenia Given 07/28/2024 4:56 PM EST 500 Units Hydrocortisone Sod Suc (PF) (Solu-Cortef) inj 100 mg 100 mg, IV Push, ONCE PRN Other, Hypersensitivity Reaction, Starting on Fri07/28/24 at 1146, Until Fri07/29/24 at 1145, For 24 hoursIndications:Malignant neoplasm of overlapping sites of left breast in female, estrogen receptor negative (HCC),Encounter for antineoplastic chemotherapy,Prevention of chemotherapy-induced neutropenia LORAzepam (Ativan) tab 0.5 mg 0.5 mg, Oral, ONCE PRN Anxiety, Nausea, Starting on Fri07/28/24 at 1300, Until DiscontinuedIndications:Lora gnant neoplasm of overlapping sites of left breast in female, estrogen receptor negative (HCC),Encounter for antineoplastic chemotherapy,Prevention of chemotherapy-induced neutropenia meperidine (Demerol) 25 MG/ML inj 25 mg 25 mg, Intramuscular, ONCE PRN Shivering, Chills/Rigors from acute infusion reaction, Starting on Fri07/28/24 at 1146, Until Yudi 07/29/24 at 1145, For 24 hoursIndications:Malignant neoplasm of overlapping sites of left breast in female, estrogen receptor negative (HCC),Encounter for antineoplastic chemotherapy,Prevention of chemotherapy-induced neutropenia NSS infusion Intravenous, at 50 mL/hr, PRN, Starting on Fri07/28/24 at 1300, Until Discontinued, Maintenance lineIndications:Malignant neoplasm of overlapping sites of left breast in female, estrogen receptor negative (HCC),Encounter for antineoplastic chemotherapy,Prevention of chemotherapy-induced neutropenia Start Infusion 07/28/2024 11:48 AM EST 50 mL/hr oxygen GAS Inhalation, OXYGEN, First dose on Fri07/28/24 at 1600, Until Discontinued, Device/Managed by: Low Flow Device, Goal SPO2 (%): 91-95, Starting Device: Nasal Cannula, Initial Flow Rate (LPM): 2, Lowest Support: Nasal Cannula: Flow 0-6 LPM. Titrate up/down by 1 LPM., Higher Support: Non-Rebreather (NRB) Mask: Minimum of 10 LPM. Titrate to maintain bag inflation., Titration Interval: Q2 minutes and as needed., Notify Provider: For sudden DECREASE in resting SPO2 to less than 85% and when escalating delivery device., Wean patient off Oxygen when the oxygen saturation is greater than or equal to 93%Indications:Malignant neoplasm of overlapping sites of left breast in female, estrogen receptor negative (HCC),Encounter for antineoplastic chemotherapy,Prevention of chemotherapy-induced neutropenia sodium chloride 0.9 % flush central line 10 mL 10 mL, IV Push, PRN Other, IV Flush, Starting on Fri07/28/24 at 1146, Until Yudi 07/29/24 at 1145, For 24 hours, Do not flush if lock, PICC, or central line not in place; IV infusing or unable to flush.Indications:Malignant neoplasm of overlapping sites of left breast in female, estrogen receptor negative (HCC),Encounter for antineoplastic chemotherapy,Prevention of chemotherapy-induced neutropenia Given 07/28/2024 4:56 PM EST 10 mL Inactive Administered Medications - up to 3 [...] 11:50 AM EST 150 mg 538.4 mL/hr PACLitaxel (Taxol) 368 mg in NSS [...] 12:28 PM EST 200 mg 226 mL/hr documented in this encounter Care Teams Shell Fisherman Relationship Specialty Start Date End Date Gordon October EUGENIA Mckinney [address] [place] [address] PCP - General Physician Customer Service Sales Associate 05/10/24 documented as of this encounter
--- OUTSIDE RECORDS SUMMARY | 2024-10-09 06:34 | External Medical Summary | Summary of Care ---
Author Name Unknown Organization [facility] Address [address] [place] [address] Phone [phone] Care Team Providers Care Jacket Changer Name Role Phone Jewell Leyva Faye BELLO Primary Care Provider [phone] Reason for Visit * Reason Comments Medication [...] 1MCG [place] PACLITAXEL INJECTION [place] INJ CYCLOPHOSPHAMD Celia Ma MD Hematology/Oncology Treatment, [address] [place] [address] Phone: tel: fax: Referral ID Status Reason Start Date Expiration Date V isits Requested Visits Authorized [id number] Authorized 07/28/2024 12/18/2024 [id number] Encounter Details Date Type Department Care Team (Latest Contact Info) Description 06/29/2024 3:45 PM EST Immunization/ Injection Hematology/Oncology Treatment, [address] [place] [address] Rayna, Chair 7 Hem Onc [address] [address] Malignant neoplasm of overlapping sites of left breast in female, estrogen receptor negative (HCC)*; Encounter for antineoplastic chemotherapy; Prevention of chemotherapy-induced neutropenia Allergies Active Allergy Reactions Criticality Noted Date Comments Vancomycin Low 03/16/2022 documented as of this encounter (statuses as of 07/30/2024) Medications MULTIVITAMINS PO TABS one a day Active ALPRAZolam 0.25 MG Oral Tablet (xaNAX) Take by mouth 1 Tablet in the morning AND 1 Tablet at noon AND 1 Tablet before bedtime. As needed for anxiety. 30 Tablet 1 Active Additional Information Patient not taking.Reported on 06/23/2024 Nitroglycerin 0.2% rectal ointment Administer into the rectum 2 times a day. 20 g 3 Active Additional Information Patient not taking.Reported [...] for 3 days after chemotherapy). 16 Tablet Active Amoxicillin-Pot Clavulanate 875-125 MG Oral Tablet (Augmentin)Indica tions:Malignant neoplasm of overlapping sites of left breast in female, estrogen receptor negative (HCC) Take 1 Tablet by mouth in the morning and 1 Tablet before bedtime. 28 Tablet Active oxyCODONE-Acetami nophen 5-325 MG Oral Tablet (Percocet)Indicat ions:Malignant neoplasm of overlapping sites of left breast in female, estrogen receptor negative (HCC) Take 2 Tablets by mouth every 6 hours as needed for Pain, Mild, Pain, Moderate or Pain, Severe. 90 Tablet Active PARoxetine HCl 40 MG Oral Tablet (pAXil) Take 1 Tablet by mouth in the morning. 90 Tablet 1 024 2023 Discontinued documented as of this encounter (statuses as of 07/30/2024) Active Problems Problem Noted Date Diagnosed Date Malignant neoplasm of overla pping sites of left breast in female, estrogen receptor negative 06/14/2024 Encounter for antineoplastic chemotherapy 2023 Prevention of chemotherapy-induced neutropenia 1 08/14/2023 Food insecurity 05/31/2024 Overview: Per [facility] Protocol ASCUS with positive high risk HPV cervical 06/04 Major depressive disorder, r ecurrent severe without psychotic features 04/10/2023 Major depressive disorder, single episode, moder ate 06/07/2021 Encounter for other general counseling or advice on contraception 04/27/2010 Overview (04/20/2024): ICD-10 update of inactive term documented as of this encounter (statuses as of 07/30/2024) Resolved Problems Problem Noted Date Diagnosed Date Resolved Date Current mild episode of chente r depressive disorder without prior episode 08/19/2018 4 ABN PAP SMEAR-CERVIX 999 Encounter for supervision of other normal 05/28/2016 Overview (11/21/2015): ICD-10 update of inactive term documented as of this encounter (statuses as of 07/30/2024) Immunizations Name Administration Dates Next Due TD [...] Nursing Notes * Anny Tao LPN - 06/29/2024 3:49 PM EST Fulphila 6mg = 0.6mL administered SQ into the Right upper extremity. Patient tolerated injection and will return in 3 weeks. documented in this encounter Plan of Treatment Upcoming Encounters Date Type Department Care Team (Late st Contact Info) Description 08/05/2024 1:45 PM EST Telemedicine Genetics HemOnc, [facility] [address] [place] [address] Sofia Eldridge, MS [address] [place] [address] 08/18/2024 9:30 AM EST Laboratory Laboratory [facility] [place] [address] [place] [phone] Rayna, Lab [address] [place] [address] 08/18/2024 10:00 AM EST Office Visit Hematology/Oncology [facility] [place] [address] [place] [address] Darryn Fong MD [address] [place] [address] 08/18/2024 11:00 AM EST [facility] [address] [place] [address] Rayna, Chair [address] [facility] [address] [facility] [place] [address] Scheduled Procedures Name Priority Associated Diagnoses Date/Ti [...] this encounter Medical Devices Implanted Type Area Belt Sewer Device Identifier Shelf Expiration Date Model / Serial / Lot Mediport Power Mri 8fr [id number] - [id number] Implanted:Qty : 1 on 06/23/2024 by Rubén Hou MD at OR [facility] Right: Chest CR BARD : PERIPHERAL VASCULAR 06/19/2025 [id number] / / [id number] Port Implant W8f Poly Cath - [id number] Implanted:Qty : 1 on 06/23/2024 by Rubén Hou MD at OR [facility] CR BARD : PERIPHERAL VASCULAR [id number] 06/19/2025 [id number] / / [id number] documented as of this encounter Visit Diagnoses [...] 6 mg 6 mg, Subcutaneous, ONCE, On Fri06/29/24 at 1615, For 1 doseIndications:Malignant neoplasm of overlapping sites of left breast in female, estrogen receptor negative (HCC),Encounter for antineoplastic chemotherapy,Prevention of chemotherapy-induced neutropenia Given 06/29/2024 3:46 PM EST 6 mg Arm Right Upper documented in this encounter Care Teams Jacket Changer Relationship Specialty Start Date End Date Jewell Leyva, EUGENIA [address] [facility] [place] [address] PCP - General Physician Physician Internist 05/10/24 documented as of this encounter
--- OUTSIDE RECORDS SUMMARY | 2024-10-09 06:34 | External Medical Summary ---
Author Name Unknown Address Unknown Organization K01:[facility] [place] [address] [place] [address] Laboratory Report Ordering Provider Test Date Status JOCY DILL 07/28/2024 10:42:27 Final Observation Date Value Abnormality Reference (Units ) Status TSH 07/28/2024 10:42:27 0.57 0.27-4.20 (uIU/mL) Final Performing Location [facility] [place] [address] [place] [address]
--- OUTSIDE RECORDS SUMMARY | 2024-10-09 06:34 | External Medical Summary | Summary of Care ---
Author Name Unknown Organization [facility] Address [address] [place] [facility] [place] [place] [address] Phone [phone] Care Team Providers Care Post Office Clerk Name Role Phone Jewell Leyva Faye BELLO Primary Care Provider [phone] Reason for Visit * Reason Comments Chemotherapy [...] CYCLOPHOSPHAMD [facility]UR[facility]EDIC Celia Beard MD Hematology/Oncology Treatment, [address] [address] Phone: tel: fax: Referral ID Status Reason Start Date Expiration Date V isits Requested Visits Authorized [id number] Authorized 07/28/2024 12/18/2024 999 99 Encounter Details Date Type Department Care Team (Latest Contact Info) Description 06/28/2024 10:30 AM EST Hem/Onc Treatment Hematology/Oncolog y Treatment, [address] [address] Malignant neoplasm of overlapping sites [...] 1 08/14/2023 Food insecurity 05/31/2024 Overview: Per [facility] Protocol ASCUS with positive high [...] 08/05/2024 1:45 PM EST Telemedicine Genetics HemOn, [facility] [address] [place] [address] Sofia Eldridge, [place] [address] [facility] [place] [address] 08/18/2024 9:30 AM EST Laboratory Laboratory [facility] [address] [place] [phone] [place], Lab [address] [place] [address] 08/18/2024 10:00 AM EST Office Visit Hematology/Oncology [facility] [address] [place] [phone] Darryn Fong MD 200 [facility] [place] [address] 08/18/2024 11:00 AM EST Hem/Onc Treatment Hematology/Oncology Treatment, [place] [address] [facility] [place] [phone] Rayna, Chair 1 Hem Onc [address] [place] [address] Scheduled Procedures Name Priority Associated Diagnoses Date/Ti [...] this encounter Medical Devices Implanted Type Area Gear Tooth Grinding Machine Operator Device Identifier Shelf Expiration Date Model / Serial / Lot Mediport Power Mri 8fr [id number] - [id number] Implanted:Qty : 1 on 06/23/2024 by Rubén Hou MD at OR [facility] Right: Chest CR BARD : PERIPHERAL VASCULAR 06/19/2025 [id number] / / [id number] Port Implant W8f Poly Cath - [id number] Implanted:Qty : 1 on 06/23/2024 by Rubén Hou MD at OR [facility] CR BARD : PERIPHERAL VASCULAR [id number] 06/19/2025 [id number] / / [id number] documented as of this encounter Visit Diagnoses [...] mL documented in this encounter Care Teams Post Office Clerk Relationship Specialty Start Date End Date Jewell Leyva PA-C [address] [place] [address] PCP - General Physician Business Continuity Global Director 05/10/24 documented as of this encounter
--- OUTSIDE RECORDS SUMMARY | 2024-10-09 06:34 | External Medical Summary | Summary of Care ---
Author Name Unknown Organization [facility] Address [address] [facility] [address] Phone [phone] Care Team Providers Care Thermal Intelligence Analyst Name Role Phone Jewell Leyva EUGENIA Primary Care Provider [phone] Reason for Visit * Reason Comments Chemotherapy Chemo/recheck Encounter Details Date Type Department Care Team (Late st Contact Info) Description 07/15/2024 12:00 PM EST Office Visit Hematology/Oncology [facility] [address] [place] [address] Ama Barksdale CRNP [address] [facility] [place] [id number] Malignant neoplasm of overlapping sites of left breast in female, estrogen receptor negative (HCC)*; Prevention of chemotherapy-induced neutropenia Allergies Active Allergy Reactions Criticality Noted Date Comments Vancomycin Low 03/16/2022 documented as of this encounter (statuses as of 07/21/2024) Medications MULTIVITAMINS PO TABS one a day [...] needed for Nausea. 30 Tablet 3 06/15/20 24 Active Additional Information Patient not [...] as of this encounter (statuses as of 07/21/2024) Active Problems Problem Noted Date Diagnosed Date Dehydration 07/05/2024 Malignant neoplasm of overla pping sites of left breast in female, estrogen receptor negative 06/14/2024 Encounter for antineoplastic chemotherapy 2023 Prevention of chemotherapy-induced neutropenia 1 08/14/2023 Food insecurity 05/31/2024 Overview: Per [facility] Protocol ASCUS with positive high risk HPV cervical 06/04 Major depressive disorder, r ecurrent severe without psychotic features 04/10/2023 Major depressive disorder, single episode, moder ate 06/07/2021 Encounter for other general counseling or advice on contraception 04/27/2010 Overview (04/20/2024): ICD-10 update of inactive term documented as of this encounter (statuses as of 07/21/2024) Resolved Problems Problem Noted Date Diagnosed Date Resolved Date Current mild episode of chente r depressive disorder without prior episode 08/19/2018 ABN PAP SMEAR-CERVIX 999 Encounter for supervision of other normal 05/28/2016 Overview (11/21/2015): ICD-10 update of inactive term documented as of this encounter (statuses as of 07/21/2024) Immunizations Name Administration Dates Next Due TD [...] Sign Reading Time Taken Comments Blood Pressure 112/78 07/15/2024 12:02 PM EST Pulse 96 07/15/2024 12:02 PM EST Temperature 36.6 C (97.8 F) 07/15/2024 12:[address] Respiratory Rate - - Oxygen Saturation 95% 07/15/2024 12:02 PM EST Inhaled Oxygen Concentration - - Weight 94.6 kg (208 lb 8 oz) 07/15/2024 12:02 PM EST Height - - Body Mass Index 34.65 06/24/2024 3:07 PM EST documented in this encounter Progress Notes * Ama Barksdale CRNP - 07/15/2024 12:00 PM EST Hematology/Oncology Outpatient Clinic note [place] [address] Name: Radha Fung Date: 07/15/2024 CHIEF COMPLAINT: Radha Fung is a 48 year old female patient of Dr. Beard here today for f/u visit today. From Patient chart confirmed with patient. From Dr. Beard note 06/28/24. HEMATOLOGY/ONCOLOGY DIAGNOSIS: Left breast invasive ductal carcinoma, grade 3 TNBC ( ER negative, MA weak mostly negative , HER2 Monroe negative [...] carcinoma, grade 3 TNBC ( ER negative, MA weak mostly negative, HER2 Monroe negative 1+ [...] core biopsies are recommended. 06/02/2024: SURGICAL PATHOLOGY: [id number] Component Final Diagnosis A. Breast, Left, left breast 11:00 9cm FN - palpable, core biopsy: Invasive ductal carcinoma, histologic grade 3, associated extensive necrosis Estrogen Receptor (ER) protein expression is NEGATIVE <1% nuclear positivity COMMENT: Assay internal and external control immunoreactivity is appropriate. Progesterone Receptor (MA) protein expression is WEAKLY POSITIVE 10% nuclear [...] for f/u visit today and consideration for C2D1 of treatment scheduled for Friday. Denies mouth sores or pain,nausea or vomiting. Does have some some burning pain in her finger tips that is persistent. Did have some numbness in her feet that is currently resolved. Did get bone pain with her pegfilgrastim injection that resolved with Percocet. Does report fatigue. Eating and drinking well. Bowels are movingnormally. Past Medical History: Diagnosis Date Abnormal Papanicolaou smear of cervix and cervical HPV Malignant neoplasm of overlapping sites of left breast in female, estrogen receptor negative (HCC) 06/14/2024 Other anxiety states Varicella without complication Past Surgical History: Procedure Laterality Date COLONOSCOPY, DIAGNOSTIC (RECTUM) 04/11/2023 hemorrhoids/recall 10 years/COLONOSCOPY FLEXIBLE PROXIMAL DIAGNOSTIC performed by Rajendra Leon MD at ENDOSCOPY [facility] COLPOSCPY CERVIX W/BX AND EC 1997,1998 INSER TUNN ACC DEV;5 YRS/OLDER Right 06/23/2024 INSERT TUNNELED CENTRAL VENOUS ACCESS WITH SUBQ PORT performed by Rubén Hou MD at OR [facility] SURGICAL PROCEDURE ONLY Left 05/27/2024 Aspiration [...] Stability Do you currently live in a longterm or have no steady place to sleep [...] HPI - otherwise negative OBJECTIVE: Filed Vitals: 07/15/24 1202 BP: 112/78 Pulse: 96 Temp: 36.6 C (97.8 F) TempSrc: Tympanic SpO2: 95% Weight: 94.6 kg (208 lb 8 oz) Wt Readings from Last 5 Encounters: 07/15/24 94.6 kg (208 lb 8 oz) 06/28/24 93.5 kg (206 lb 1.6 oz) 06/24/24 93.2 kg (205 lb 8 oz) 06/23/24 93.9 kg (207 lb) 06/14/24 94.3 kg (207 lb 12.8 oz) PHYSICAL EXAM: ECOG: Performance Status 1 [...] edema Neurologic: Normal - Grossly intact LABS: N/A IMPRESSION/PLAN: Left breast invasive ductal carcinoma, grade 3 TNBC Prevention of chemotherapy induced neutropenia Currently completing neoadjuvant chemotherapy with Keytruda, Carbo, Taxol every 21 days. Presents today for consideration of C2D1 of treatment scheduled for Friday. Tolerating treatment plan well with no signs or symptoms of significant toxicity noted. Did experience some mild CIPN that will be closely monitored. Pending lab work to be drawn on Friday ok for treatment as scheduled. Confirms taking dexamethasone as prescribed. Will receive Pegfilgrastim support D2 for prevention of chemotherapy induced neutropenia RTC in three weeks with provider for chemo return SENDY Hammond documented in this encounter Nursing Notes * Matilda Watkins CMA - 07/15/2024 12:03 PM EST Patient identifed by name and birthdate Do you have any concerns about pain management for today's visit? No Living Will or Advance Directive for Health Care as noted on the problem list. [facility] is a way you can talk to your provider on line through e-mail. Would you like to sign up? I can activate it for you? ALREADY ACTIVE Filed Vitals: 07/15/24 1202 BP: 112/78 Pulse: 96 Temp: 36.6 C (97.8 F) TempSrc: Tympanic SpO2: 95% Weight: 94.6 kg (208 lb 8 oz) Patient was instructed to not get [...] Description 07/28/2024 10:30 AM EST Laboratory Laboratory [address] [place] [address] [place] [address] [facility] 200 [facility] [place], [place] [address] 07/28/2024 11:00 AM EST Office Visit Hematology/Oncology [facility] [place] 200 [facility] [place] [phone] Shannon Ramos CRNP [address] [place] [address] 07/28/2024 11:30 AM EST Hem[facility] [address] [facility] [address] [place] [phone] Rayna, Chair 6 Hem Onc [address] [place] [address] 08/05/2024 1:45 PM EST Telemedicine Genetics HemOnc, [facility] [address] [place] [address] Sofia Eldridge, [place] [address] [place] [address] 08/18/2024 10:00 AM EST Office Visit Hematology/Oncology [facility] [place] [address] [facility] [place] [phone] Darryn Fong MD 200 [facility] [place] [address] Scheduled Procedures Name Priority Associated Diagnoses Date/Ti [...] this encounter Medical Devices Implanted Type Area Recreational Leader Device Identifier Shelf Expiration Date Model / Serial / Lot Mediport Power Mri 8fr [id number] - [id number] Implanted:Qty : 1 on 06/23/2024 by Rubén Hou MD at OR [facility] Right: Chest CR BARD : PERIPHERAL VASCULAR 06/19/2025 [id number] / / [id number] Port Implant W8f Poly Cath - [id number] Implanted:Qty : 1 on 06/23/2024 by Rubén Hou MD at OR [facility] CR BARD : PERIPHERAL VASCULAR [id number] 06/19/2025 [id number] / / [id number] documented as of this encounter Visit Diagnoses Diagnosis Malignant neoplasm of overlapping sites of left breast in female, estrogen receptor negative (HCC)- Primary Prevention of chemotherapy-induced neutropenia documented in this encounter Care Teams Thermal Intelligence Analyst Relationship Specialty Start Date End Date Jewell Leyva PA-C [address] [place] [address] PCP - General Physician Tare Worker 05/10/24 documented as of this encounter
--- OUTSIDE RECORDS SUMMARY | 2024-10-09 06:34 | External Medical Summary | Summary of Care ---
Author Name Unknown Organization [facility] Address [address] [place] [address] Phone [phone] Care Team Providers Care Charging Crane Operator Name Role Phone Gordon Jewell Faye EUGENIA Primary Care Provider [phone] Reason for Visit * Reason Comments Outpatient Testing Encounter Details Date Type Department Care Team (Late st Contact Info) Description 07/28/2024 10:30 AM EST Laboratory Laboratory [facility] [address] [place] [phone] [facility] Lab Scene [address] [place] [address] Malignant neoplasm of overlapping sites of left [...] 1 08/14/2023 Food insecurity 05/31/2024 Overview: Per [facility] Protocol ASCUS with positive high risk [...] 07/28/2024 11:00 AM EST Office Visit Hematology/Oncology [address] [place] [phone] Shannon Ramos CRNP [address] [place] [address] Arrived 07/28/2024 11:30 AM EST Hem/Onc Treatment Hematology/[address]cology [address], [address] [address] Rayna, Chair 6 Hem Onc [address] [place] [address] Arrived 08/05/2024 1:45 PM EST Telemedicine Genetics HemOnc, [facility] 100 [place] [address] Sofia Eldridge, MS [facility] [address] 08/18/2024 10:00 AM EST Office Visit Hematology/Oncology [facility] [address] [place] [phone] Darryn Fong MD [address] [place] [address] [place] [address] Pending Results Name Type Priority Associated Diagnoses Date /Time COMPREHENSIVE METABOLIC PANEL Lab STAT Malignant neoplasm of overlapping sites of left breast in female, estrogen receptor negative (HCC) 07/28/2024 10:42 AM EST TSH WITH FREE T4 IF INDICATED Lab STAT Malignant neoplasm of overlapping sites of left breast in female, estrogen receptor negative (HCC) 07/28/2024 10:42 AM EST Scheduled Procedures Name Priority Associated [...] this encounter Medical Devices Implanted Type Area Physical Therapist Assistant Device Identifier Shelf Expiration Date Model / Serial / Lot Mediport Power Mri 8fr [id number] - [id number] Implanted:Qty : 1 on 06/23/2024 by Rubén Hou MD at OR [facility] Right: Chest CR BARD : PERIPHERAL VASCULAR 06/19/2025 [id number] / / [id number] Port Implant W8f Poly Cath - [id number] Implanted:Qty : 1 on 06/23/2024 by Rubén Hou MD at OR [facility] CR BARD : PERIPHERAL VASCULAR [id number] 06/19/2025 [id number] / / [id number] documented as of this encounter Procedures Procedure Name Priority Date/Time Associated Diagnosis Comments DIFFERENTIAL, AUTOMATED STAT 07/28/2024 10:42 AM EST Malignant neoplasm of overlapping sites of left breast in female, estrogen receptor negative (HCC) CBC STAT 07/28/2024 10:42 AM EST Malignant neoplasm of overlapping sites of left breast in female, estrogen receptor negative (HCC) CBC STAT 07/28/2024 10:42 AM EST Malignant neoplasm of overlapping sites of left breast in female, estrogen receptor negative (HCC) documented in this encounter Results * (ABNORMAL) DIFFERENTIAL, AUTOMATED (07/28/2024 10:42 AM EST) WBC 10.88(H) 4.00 - 10.80 K/uL 07/28/2024 10:49 AM EST [facility] 56-02 Neutrophils % 90.8(H) 40.0 - 75.0 % 07/28/2024 10:49 AM EST [facility] 56-02 Lymphocytes % 7.3(L) 18.0 - 42.0 % 07/28/2024 10:49 AM EST LABORATORY [facility] 56-02 Monocytes % 1.8 1.0 - 11.0 % 07/28/2024 10:49 AM EST [facility] 56-02 Eosinophils % 0.0 0.0 - 6.0 % 07/28/2024 10:49 AM EST LABORATORY [facility] 56-02 Basophils % 0.1 0.0 - 2.0 % 07/28/2024 10:49 AM EST [facility] 56- Absolute Neutrophils 9.88(H) 1.80 - 7.70 K/uL 07/28/2024 10:49 AM [facility] 56-02 Absolute Lymphocytes 0.79(L) 1.00 - 4.80 K/ul 07/28/2024 10:49 AM [facility] 56-02 Absolute Monocytes 0.20 0.00 - 1.10 K/uL 07/28/2024 10:49 AM [facility] 56-02 Absolute Eosinophils 0.00 0.00 - 0.70 K/uL 07/28/2024 10:49 AM [facility] 56-02 Absolute Basophils 0.01 0.00 - 0.20 K/uL 07/28/2024 10:49 AM [facility] 56- Blood Venous blood specimen / Unknown Venipuncture / Unknown 07/28/2024 10:42 AM EST 07/28/2024 10:42 AM EST us Darryn Fong MD LAB BLOOD ORDERABLES Final Res ult [facility] 56- [address] [place] [address] * (ABNORMAL) CBC (07/28/2024 10:42 AM EST) WBC 10.88(H) 4.00 - 10.80 K/uL 07/28/2024 10:49 AM [facility] 56- RBC 4.39 3.85 - 5.15 M/uL 07/28/2024 10:49 AM [facility] 56- HGB 13.5 12.0 - 15.3 g/dL 07/28/2024 10:49 AM [facility] 56- HCT 40.3 36.0 - 45.2 % 07/28/2024 10:49 AM [facility] 56-02 MCV 91.8 81.5 - 97.5 fL 07/28/2024 10:49 AM [facility] 56- MCH 30.8 27.0 - 34.0 pg 07/28/2024 10:49 AM [facility] 56- MCHC 33.5 32.0 - 36.0 g/dL 07/28/2024 10:49 AM EST [facility] 56- RDW 14.9 11.5 - 15.5 % 07/28/2024 10:49 AM [facility] 56-02 PLT 219 140 - 400 K/uL 07/28/2024 10:49 AM EST [facility] 56- MPV 10.0 6.6 - 11.1 fL 07/28/2024 10:49 AM [facility] 56- Blood Venous blood specimen / Unknown Venipuncture / Unknown 07/28/2024 10:42 AM EST 07/28/2024 10:42 AM EST us Darryn Fong MD LAB BLOOD ORDERABLES Final Res ult [facility] 56- 200 [facility] [place] [address] documented in this encounter Visit Diagnoses Diagnosis Malignant neoplasm of overlapping sites of left breast in female, estrogen receptor negative (HCC) documented in this encounter Care Teams Charging Crane Operator Relationship Specialty Start Date End Date Gordon Jewell EUGENIA Mckinney [facility] [place] [address] PCP - General Physician Hospice Clinical Marketer 05/10/24 documented as of this encounter
--- OUTSIDE RECORDS SUMMARY | 2024-10-09 06:34 | External Medical Summary | Summary of Care ---
Author Name Unknown Organization [facility] Address [address] [place] [address] Phone [phone] Care Team Providers Care Energy Projects Lead Name Role Phone Jewell Leyva Faye BELLO Primary Care Provider [phone] Reason for Visit * Reason Comments Medication Administration Fulphila * Episode Based Medications (Routine) - Authorized Specialty Diagnoses / Procedures Referred By Jacobo lo Referred To Contact Diagnoses Malignant neoplasm of overlapping sites of left breast in female, estrogen receptor negative (HCC) Encounter for antineoplastic chemotherapy Prevention of chemotherapy-induced neutropenia Procedures AR DOXORUBIC HCL 10 MG VL CHEMO AR CARBOPLATIN INJECTION AR FOSAPREPITANT INJECTION AR INJ PEMBROLIZUMAB AR INJECTION, FULPHILA AR INJ, FILGRASTIM G-CSF 1MCG AR PACLITAXEL INJECTION AR INJ CYCLOPHOSPHAMD Celia Ma MD Hematology/Oncology Treatment, [address] [place] [address] Phone: tel: fax: Referral ID Status Reason Start Date Expiration Date V isits Requested Visits Authorized [id number] Authorized 07/28/2024 12/18/2024 999 [id number] Encounter Details Date Type Department Care Team (Latest Contact Info) Description 07/30/2024 8:00 AM EST Immunization/ Injection Hematology/Oncology Treatment, [address] [place] [address] Rayna, Chair 5 Hem Onc [address] [address] Malignant neoplasm of overlapping sites of left [...] 1 08/14/2023 Food insecurity 05/31/2024 Overview: Per [facility] Protocol ASCUS with positive high [...] No 05/17/2024 Does the household have a [facility]ierra vista hospitallar source of income? (Household - for ages [...] Description 08/05/2024 1:45 PM EST [facility]medicine [facility] [address] [place] [address] Sofia Eldridge, [place] [address] [place] [address] 08/18/2024 9:30 AM EST Laboratory Laboratory [facility] [address] [place] [address] Rayna, Lab Scene 200 [facility] [place] [address] 08/18/2024 10:00 AM EST Office Visit Hematology/Oncology [facility] [place] [address] [place] [phone] Darryn Fong MD [address] [place] [address] 08/18/2024 11:00 AM EST Hem[facility] [address] [place] [phone] Rayna, Chair 1 Hem Onc [facility] 200 [facility] [place] [address] Scheduled Procedures Name Priority Associated Diagnoses Date/Ti [...] this encounter Medical Devices Implanted Type Area Financial Service Professional Device Identifier Shelf Expiration Date Model / Serial / Lot Mediport Power Mri 8fr [id number] - [id number] Implanted:Qty : 1 on 06/23/2024 by Rubén Hou MD at OR [facility] Right: Chest CR BARD : PERIPHERAL VASCULAR 06/19/2025 [id number] / / [id number] Port Implant W8f Poly Cath - [id number] Implanted:Qty : 1 on 06/23/2024 by Rubén Hou MD at OR [facility] CR BARD : PERIPHERAL VASCULAR [id number] 06/19/2025 [id number] / / [id number] documented as of this encounter Visit Diagnoses Diagnosis Malignant neoplasm of overlapping sites of left breast in female, estrogen receptor negative (HCC)- Primary Encounter for antineoplastic chemotherapy Prevention of chemotherapy-induced neutropenia documented in this encounter Administered Medications Inactive Administered Medications - up to 3 most recent administrations Medication Order MAR Action Action Date Dose Rate Site Pegfilgrastim-heididb (Fulphila) inj 6 mg 6 mg, Subcutaneous, ONCE, On Fri07/30/24 at 0900, For 1 doseIndications:Malignant neoplasm of overlapping sites of left breast in female, estrogen receptor negative (HCC),Encounter for antineoplastic chemotherapy,Prevention of chemotherapy-induced neutropenia Given 07/30/2024 8:34 AM EST 6 mg Arm Right Upper documented in this encounter Care Teams Energy Projects Lead Relationship Specialty Start Date End Date Gordon October Faye, PAMarielaC [address] [place] [address] PCP - General Physician Bed And Breakfast Innkeeper 05/10/24 documented as of this encounter
--- OUTSIDE RECORDS SUMMARY | 2024-10-09 06:35 | External Medical Summary | Summary of Care ---
Author Name Unknown Organization [facility] Address [address] [place] [place] [place] [address] Phone [phone] Care Team Providers Care Outpatient Receptionist Name Role Phone Codieritu Jewell Faye BELLO Primary Care Provider [phone] Reason for Visit * Reason Comments IV Therapy Hydration Encounter Details Date Type Department Care Team (Latest Contact Info) Description 07/05/2024 1:00 PM EST Hem/Onc Treatment Hematology/Oncology Treatment, [address] [phone] Park, Chair 3 Hem On[address] [address] Dehydration*; Malignant neoplasm of overlapping sites of left breast in female, estrogen receptor negative (HCC) Allergies Active Allergy Reactions Criticality Noted Date Comments Vancomycin Low 03/16/2022 documented as of this encounter (statuses as of 07/05/2024) Medications MULTIVITAMINS PO TABS one a day [...] mouth in the morning. 90 Tablet 1 12/03/19 Active diphenhydrAMINE HCl 25 MG Oral Tablet (Benadryl)Indicati [...] Pain, Severe. 90 Tablet 06/28/20 24 Active documented as of this encounter (statuses as of 07/05/2024) Active Problems Problem Noted Date Diagnosed Date Dehydration 07/05/2024 Malignant neoplasm of overla pping sites of left breast in female, estrogen receptor negative 06/14/2024 Encounter for antineoplastic chemotherapy 2023 Prevention of chemotherapy-induced neutropenia 1 08/14/2023 Food insecurity 05/31/2024 Overview: Per [facility] Protocol ASCUS with positive high risk HPV cervical 06/04 Major depressive disorder, r ecurrent severe without psychotic features 04/10/2023 Major depressive disorder, single episode, moder ate 06/07/2021 Encounter for other general counseling or advice on contraception 04/27/2010 Overview (04/20/2024): ICD-10 update of inactive term documented as of this encounter (statuses as of 07/05/2024) Resolved Problems Problem Noted Date Diagnosed Date Resolved Date Current mild episode of chente r depressive disorder without prior episode 08/19/2018 4 ABN PAP SMEAR-CERVIX 999 Encounter for supervision of other normal 05/28/2016 Overview (11/21/2015): ICD-10 update of inactive term documented as of this encounter (statuses as of 07/05/2024) Immunizations Name Administration Dates Next Due TD [...] Sign Reading Time Taken Comments Blood Pressure 134/85 07/05/2024 1:08 PM EST Pulse 108 07/05/2024 1:08 PM EST Temperature 37.6 C (99.7 F) 07/05/2024 1:08 PM ES T Respiratory Rate 18 07/05/2024 1:08 PM EST Oxygen Saturation 94% 07/05/2024 1:08 PM EST Inhaled Oxygen Concentration - - Weight - - Height - - Body Mass Index - - documented in this encounter Nursing Notes * Kathya Otoole RN - 07/05/2024 3:57 PM EST Patient states she is feeling some better. VAD flushed with 10 ml NSS and Heparin 5 ml (100 units/ml). Cristina needle removed intact. Goals: Patient will remain free from injury. Possible barriers to meeting goals: Ambulating with IV pole Stability of the patient: Moderately stable - low risk of patient condition declining or worsening Summary regarding today's goals: Met: Patient remained free from harm. Pt discharged in stable condition. * Kathya Otoole RN - 07/05/2024 2:35 PM EST Chair 3 Patient here for hydration. Patient verbalizes feeling increased fatigue. Port accessed with brisk blood return. Patient instructed on use of heat in chair. Patient shown how to operate the heat [...] Team (Late st Contact Info) Description 07/19/2024 8:30 AM EST Laboratory Laboratory [facility] [address] [facility] [place] [phone] [facility] Lab [facility] [address] [facility] [place] [address] 07/19/2024 9:00 AM EST Office Visit Hematology/Oncology [facility] [address] [facility] [place] [phone] Celia Beard MD [address] [place] [address] [place] [phone] 07/19/2024 9:30 AM EST Hem/Onc Treatment Hematology/Oncology Treatment, [place] [facility] [phone] Rayna, Chair 8 Hem Onc [address] [facility] [place] [address] 09/16/2024 8:00 AM EST Telemedicine Genetics HemOn, [address] [address] Sofia Eldridge, MS [address] [place] [address] Scheduled Procedures Name Priority Associated Diagnoses Date/Ti [...] 07/23, 12/21/2015, Additional history exists Diabetes Screening 07/05/2027 07/05/2024, 1 08/29/2023, 06/14/2024, Additional history exists Cervical Cancer Screening 06/04/2028 [...] 5 Years) and At-Risk Patients (6 to 64 Years) Aged Out No longer eligible based on patient's age to complete this topic documented as of this encounter Medical Devices Implanted Type Area Oven Dumper Device Identifier Shelf Expiration Date Model / Serial / Lot Mediport Power Mri 8fr [id number] - [id number] Implanted:Qty : 1 on 06/23/2024 by Rubén Hou MD at OR [facility] Right: Chest CR BARD : PERIPHERAL VASCULAR 06/19/2025 [id number] / / [id number] Port Implant W8f Poly Cath - [id number] Implanted:Qty : 1 on 06/23/2024 by Rubén Hou MD at OR [facility] CR BARD : PERIPHERAL VASCULAR [id number] 06/19/2025 [id number] / / [id number] documented as of this encounter Visit Diagnoses Diagnosis Dehydration- Primary Malignant neoplasm of overlapping sites of left breast in female, estrogen receptor negative (HCC) documented in this encounter Administered Medications Active Administered Medications - up to 3 most recent administrations Medication Order MAR Action Action Date Dose Rate Site hEParin 100 UNIT/ML Lock Flush inj 500 Units 500 Units (5 mL), IV Lock, PRN Other, IV Flush, Starting on Fri07/05/24 at 1339, Until Fri07/06/24 at 1338, For 24 hours, Do not flush if lock, PICC, or central line not in place; IV infusing or unable to flush.Indications:Dehydration,M alignant neoplasm of overlapping sites of left breast in female, estrogen receptor negative (HCC) Given 07/05/2024 3:52 PM EST 500 Units sodium chloride 0.9 % flush central line 10 mL 10 mL, IV Push, PRN Other, IV Flush, Starting on Fri07/05/24 at 1339, Until Fri07/06/24 at 1338, For 24 hours, Do not flush if lock, PICC, or central line not in place; IV infusing or unable to flush.Indications:Dehydration,M alignant neoplasm of overlapping sites of left breast in female, estrogen receptor negative (HCC) Given 07/05/2024 3:52 PM EST 10 mL Inactive Administered Medications - up to 3 most recent administrations Medication Order MAR Action Action Date Dose Rate Site NSS infusion FOR HYDRATION Intravenous, at 500 mL/hr Administer over 2 Hours, ONCE, 1 dose, On Fri07/05/24 at 1445Indications:Dehydratio n,Malignant neoplasm of overlapping sites of left breast in female, estrogen receptor negative (HCC) Start Infusion 07/05/2024 1:47 PM EST 1,000 mL 500 mL/hr documented in this encounter Care Teams Outpatient Receptionist Relationship Specialty Start Date End Date Gordon October EUGENIA Mckinney [address] [place] [address] PCP - General Physician Optomechanical Technician 05/10/24 documented as of this encounter
--- OUTSIDE RECORDS SUMMARY | 2024-10-09 06:35 | External Medical Summary | Summary of Care ---
Author Name Unknown Organization [facility] Address [address] [place] [address] Phone [phone] Care Team Providers Care Bss Solution Architect Name Role Phone Jewell Leyva EUGENIA Primary Care Provider [phone] Reason for Visit * Reason Comments Outpatient Testing Encounter Details Date Type Department Care Team (Late st Contact Info) Description 07/19/2024 8:30 AM EST Laboratory Laboratory [facility] [address] [place] [phone] [facility] Lab [address] [place] [address] Malignant neoplasm of overlapping sites of left [...] 1 08/14/2023 Food insecurity 05/31/2024 Overview: Per [facility] Protocol ASCUS with positive high risk [...] 9:30 AM EST Hem/Onc Treatment Hematology/Oncology Treatment, [place] [address] [place] [phone] Rayna, Chair 8 Hem Onc [facility] [address] [place] [address] Arrived 08/02/2024 8:30 AM EST Office Visit Hematology/Oncology [facility] [address] [place] [phone] Ama Barksdale CRNP [address] [place] [address] [place] [address] 08/05/2024 1:45 PM EST Telemedicine Genetics [facility]c, [facility] [address] [place] [address] Sofia Eldridge, [place] [address] [facility] [address] Pending Results Name Type Priority Associated Diagnoses Date /Time COMPREHENSIVE METABOLIC PANEL Lab STAT Malignant neoplasm of overlapping sites of left breast in female, estrogen receptor negative (HCC) 07/19/2024 8:32 AM EST TSH WITH FREE T4 IF INDICATED Lab Routine Malignant neoplasm of overlapping sites of left breast in female, estrogen receptor negative (HCC) 07/19/2024 8:32 AM EST Scheduled Procedures Name Priority Associated [...] this encounter Medical Devices Implanted Type Area Sample Worker Device Identifier Shelf Expiration Date Model / Serial / Lot Mediport Power Mri 8fr [id number] - [id number] Implanted:Qty : 1 on 06/23/2024 by Rubén Hou MD at OR [facility] Right: Chest CR BARD : PERIPHERAL VASCULAR 06/19/2025 [id number] / / [id number] Port Implant W8f Poly Cath - [id number] Implanted:Qty : 1 on 06/23/2024 by Rubén Hou MD at OR [facility] BARD : PERIPHERAL VASCULAR [id number] 06/19/2025 [id number] / / [id number] documented as of this encounter Procedures Procedure Name Priority Date/Time Associated Diagnosis Comments DIFFERENTIAL, AUTOMATED STAT 07/19/2024 8:32 AM EST Malignant neoplasm of overlapping sites of left breast in female, estrogen receptor negative (HCC) CBC STAT 07/19/2024 8:32 AM EST Malignant neoplasm of overlapping sites of left breast in female, estrogen receptor negative (HCC) CBC STAT 07/19/2024 8:32 AM EST Malignant neoplasm of overlapping sites of left breast in female, estrogen receptor negative (HCC) DIFFERENTIAL, TECHNOLOGIST REVIEW Routine 07/19/2024 8:32 AM EST Malignant neoplasm of overlapping sites of left breast in female, estrogen receptor negative (HCC) documented in this encounter Results * DIFFERENTIAL, TECHNOLOGIST REVIEW (07/19/2024 8:32 AM EST) nRs 07/19/2024 8:44 AM EST [facility] 56-02 Blood Venous blood specimen / Unknown Venipuncture / Unknown 07/19/2024 8:32 AM EST 07/19/2024 8:32 AM EST Celia Beard MD LAB BLOOD OR DERABLES Final Result [facility] [address]- [address] [place], [place] [phone] * (ABNORMAL) DIFFERENTIAL, AUTOMATED (07/19/2024 8:32 AM EST) WBC 9.99 4.00 - 10.80 K/uL 07/19/2024 8:44 AM EST [facility] 56-02 Neutrophils % 89.6(H) 40.0 - 75.0 % 07/19/2024 8:44 AM EST [facility] 56-02 Lymphocytes % 8.7(L) 18.0 - 42.0 % 07/19/2024 8:44 AM [facility] 56- Monocytes % 1.5 1.0 - 11.0 % 07/19/2024 8:44 AM [facility] 56- Eosinophils % 0.0 0.0 - 6.0 % 07/19/2024 8:44 AM [facility] 56- Basophils % 0.2 0.0 - 2.0 % 07/19/2024 8:44 AM [facility] 56- Absolute Neutrophils 8.95(H) 1.80 - 7.70 K/uL 07/19/2024 8:44 AM [facility] 56- Absolute Lymphocytes 0.87(L) 1.00 - 4.80 K/ul 07/19/2024 8:44 AM [facility] 56- Absolute Monocytes 0.15 0.00 - 1.10 K/uL 07/19/2024 8:44 AM [facility] 56- Absolute Eosinophils 0.00 0.00 - 0.70 K/uL 07/19/2024 8:44 AM [facility] 56- Absolute Basophils 0.02 0.00 - 0.20 K/uL 07/19/2024 8:44 AM [facility] 56- Blood Venous blood specimen / Unknown Venipuncture / Unknown 07/19/2024 8:32 AM EST 07/19/2024 8:32 AM EST Celia Beard MD LAB BLOOD OR DERABLES Final Result [facility] [address]- [address] [place], [place] [phone] * CBC (07/19/2024 8:32 AM EST) Pathologist [facility] WBC 9.99 4.00 - 10.80 K/uL 07/19/2024 8:44 AM EST [facility] 56- RBC 4.09 3.85 - 5.15 M/uL 07/19/2024 8:44 AM [facility] 56- HGB 12.4 12.0 - 15.3 g/dL 07/19/2024 8:44 AM [facility] 56- HCT 37.3 36.0 - 45.2 % 07/19/2024 8:44 AM [facility] 56- MCV 91.2 81.5 - 97.5 fL 07/19/2024 8:44 AM [facility] 56- MCH 30.3 27.0 - 34.0 pg 07/19/2024 8:44 AM [facility] 56- MCHC 33.2 32.0 - 36.0 g/dL 07/19/2024 8:44 AM [facility] 56- RDW 13.9 11.5 - 15.5 % 07/19/2024 8:44 AM [facility] 56- PLT 252 140 - 400 K/uL 07/19/2024 8:44 AM [facility] 56- MPV 9.4 6.6 - 11.1 fL 07/19/2024 8:44 AM [facility] 56- Blood Venous blood specimen / Unknown Venipuncture / Unknown 07/19/2024 8:32 AM EST 07/19/2024 8:32 AM EST Celia Beard MD LAB BLOOD OR DERABLES Final Result [facility]- [facility] [address] documented in this encounter Visit Diagnoses Diagnosis Malignant neoplasm of overlapping sites of left breast in female, estrogen receptor negative (HCC) documented in this encounter Care Teams Bss Solution Architect Relationship Specialty Start Date End Date GordonOctober EUGENIA Mckinney [address] [facility] [address] PCP - General Physician Supervisor Baking 05/10/24 documented as of this encounter
--- OUTSIDE RECORDS SUMMARY | 2024-10-09 06:35 | External Medical Summary ---
Author Name Unknown Address Unknown Organization K[facility] [place] [address] Laboratory Report Ordering Provider Test Date Status GENE RUIZ 07/19/2024 08:32:28 Final Observation Date Value Abnormality Reference (Units ) Status WBC, Total 07/19/2024 08:32:28 9.99 4.00-10.8 0 (K/uL) Final RBC 07/19/2024 08:32:28 4.09 3.85-5.15 (M/uL) Final Hemoglobin 07/19/2024 08:32:28 12.4 12.0-15.3 (g/dL) Final HCT 07/19/2024 08:32:28 37.3 36.0-45.2 (%) Final MCV 07/19/2024 08:32:28 91.2 81.5-97.5 (fL) Final MCH 07/19/2024 08:32:28 30.3 27.0-34.0 (pg) Final MCHC 07/19/2024 08:32:28 33.2 32.0-36.0 (g/dL) Final RDW 07/19/2024 08:32:28 13.9 11.5-15.5 (%) Final Platelets 07/19/2024 08:32:28 252 140-400 (K /uL) Final MPV 07/19/2024 08:32:28 9.4 6.6-11.1 ( fL) Final Performing Location [facility] [place] [address]
--- OUTSIDE RECORDS SUMMARY | 2024-10-09 06:35 | External Medical Summary | Summary of Care ---
Author Name Unknown Organization [facility] Address [address] [facility] [place] [address] Phone [phone] Care Team Providers Care Automotive Vehicle Inspector Name Role Phone Jewell Leyva EUGENIA Primary Care Provider [phone] Reason for Visit * Reason Onset Date Comments Advice 06/28/2024 Encounter Details Date Type Department Care Team (Late st Contact Info) Description 06/28/2024 Telephone Hematology/Oncology [facility] [place] [address] [facility] [place] [address] [facility] [address] [facility] [place] [phone] Advice Allergies Active Allergy Reactions Criticality Noted Date Comments Vancomycin Low 03/16/2022 documented as of this encounter (statuses as of 07/12/2024) Medications MULTIVITAMINS PO TABS one a day [...] in the morning. 90 Tablet 1 12/03/19 24 Active diphenhydrAMINE HCl 25 MG Oral Tablet [...] as of this encounter (statuses as of 07/12/2024) Active Problems Problem Noted Date Diagnosed Date Malignant neoplasm of overla pping sites of left breast in female, estrogen receptor negative 06/14/2024 Encounter for antineoplastic chemotherapy 2023 Prevention of chemotherapy-induced neutropenia 1 08/14/2023 Food insecurity 05/31/2024 Overview: Per [facility] Protocol ASCUS with positive high risk HPV cervical 06/04 Major depressive disorder, r ecurrent severe without psychotic features 04/10/2023 Major depressive disorder, single episode, moder ate 06/07/2021 Encounter for other general counseling or advice on contraception 04/27/2010 Overview (04/20/2024): ICD-10 update of inactive term documented as of this encounter (statuses as of 07/12/2024) Resolved Problems Problem Noted Date Diagnosed Date Resolved Date Current mild episode of chente r depressive disorder without prior episode 08/19/2018 4 ABN PAP SMEAR-CERVIX 999 Encounter for supervision of other normal 05/28/2016 Overview (11/21/2015): ICD-10 update of inactive term documented as of this encounter (statuses as of 07/12/2024) Immunizations Name Administration Dates Next Due TD [...] encounter Miscellaneous Notes * Telephone Encounter - Annie Espino LPN - 06/29/2024 3:23 PM EST Alright to cancel biopsy. * Telephone Encounter - Khoi Ahmadi RN - 06/29/2024 2:31 PM EST Per TT from Dr. Beard - "Ok to cancel biopsy as patient has started chemotherapy." Dr. Eleonora mcgee, ok to cancel biopsy on your end as this was placed by you? Patient started chemotherapy treatment yesterday. * Telephone Encounter - Khoi Ahmadi RN - 06/29/2024 9:57 AM EST TT sent to Dr. Chase to confirm. * Telephone Encounter - Khoi Ahmadi RN - 06/29/2024 9:[address] Beard- please advise, is biopsy on Friday to be cancelled? I believe we had discussed this yesterday but wanted to confirm. * Telephone Encounter - Khoi Ahmadi RN - 06/29/2024 8:25 AM ESTSigned Prescriptions: Disp Refills dexAMETHasone 4 MG Oral Tablet (Decadron) 16 Tab*0 Sig: Take 2 tablets by mouth for 2 days prior to chemotherapy ( as well as 2 tablets by mouth for 3 days after chemotherapy).Authorizing Provider: SARA BEARD * Telephone Encounter - Khoi Ahmadi RN - 06/28/2024 2:41 PM EST Per routing comment from Dr. 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 " New script pended. * Telephone Encounter - Khoi Ahmadi RN - 06/28/2024 1:[address] Beard - You instructed patient to take Decadron for 2 days prior to infusion then 3 days after. Please advise on dosing of Decadron (do you want to do 2 tablets each day). Will pend new script once instructions are clear. documented in this encounter Plan of Treatment Upcoming Encounters Date Type Department Care Team (Late st Contact Info) Description 07/19/2024 8:30 AM EST Laboratory [facility] [address] [place] [phone] [place] [address] 07/19/2024 9:00 AM EST Office Visit Hematology/Oncology [facility] [place] [address] [place], [place] [phone] Sara Beard MD [address] [place], [place] [address] [address] 07/19/2024 9:30 AM EST Hem/Onc Treatment Hematology/Oncology Treatment, [place] [address] [facility] [address] [place], [place] [phone] Rayna, Chair 8 Hem Onc [facility] [address] [facility] [place] [address] 08/05/2024 1:45 PM EST Telemedicine Genetics [place], [facility] [place] [address] [place] [address] Sofia Eldridge, [place] [address] [facility] [address] Scheduled Procedures Name Priority Associated Diagnoses Date/Ti [...] this encounter Medical Devices Implanted Type Area Storage Facility Housekeeper Device Identifier Shelf Expiration Date Model / Serial / Lot Mediport Power Mri 8fr [id number] - [id number] Implanted:Qty : 1 on 06/23/2024 by Rubén Hou MD at OR [facility] Right: Chest CR BARD : PERIPHERAL VASCULAR 06/19/2025 [id number] / / [id number] Port Implant W8f Poly Cath - [id number] Implanted:Qty : 1 on 06/23/2024 by Rubén Hou MD at OR [facility] CR BARD : PERIPHERAL VASCULAR [id number] 06/19/2025 [id number] / / [id number] documented as of this encounter Visit Diagnoses Diagnosis Malignant neoplasm of overlapping sites of left breast in female, estrogen receptor negative (HCC)- Primary documented in this encounter Care Teams Automotive Vehicle Inspector Relationship Specialty Start Date End Date Jewell Leyva PA-C [address] [place] [address] PCP - General Physician Refrigerating Oiler 05/10/24 documented as of this encounter
--- OUTSIDE RECORDS SUMMARY | 2024-10-09 06:35 | External Medical Summary ---
Author Name Unknown Address Unknown Organization K09[facility] [place] [address] Laboratory Report Ordering Provider Test Date Status GENE RUIZ 07/19/2024 08:32:28 Final Observation Date Value Abnormality Reference (Units ) Status SYNC LEUKOCYTES IN BLOOD BY AUTOMATED COUNT 07/19/2024 08:32:28 9.99 4.00-10.80 (K/uL) Final Segs 07/19/2024 08:32:28 89.6 Above high normal 40.0-75.0 (%) Final Lymphs % 07/19/2024 08:32:28 8.7 Below low normal 18.0-42.0 (%) Final Monos 07/19/2024 08:32:28 1.5 1.0-11.0 (%) Final Eosinophils 07/19/2024 08:32:28 0.0 0.0-6.0 (%) Final Basos 07/19/2024 08:32:28 0.2 0.0-2.0 (%) Final Absolute Segs 07/19/2024 08:32:28 8.95 Above high normal 1.80-7.70 (K/uL) Final Lymphs, absolute 07/19/2024 08:32:28 0.87 Below low normal 1.00-4.80 (K/ul) Final Monos, Abs 07/19/2024 08:32:28 0.15 0.00-1.10 (K/uL) Final Eos, Abs 07/19/2024 08:32:28 0.00 0.00-0.70 (K/uL) Final Basos, Abs 07/19/2024 08:32:28 0.02 0.00-0.20 (K/uL) Final Performing Location [facility] [place] [address]
--- OUTSIDE RECORDS SUMMARY | 2024-10-09 06:35 | External Medical Summary | Summary of Care ---
Author Name Unknown Organization [facility] Address [address] [facility] [place] [address] Phone [phone] Care Team Providers Care Public Health Veterinarian Name Role Phone Jewell Leyva EUGENIA Primary Care Provider [phone] Encounter Details Date Type Department Care Team (Late st Contact Info) Description 07/13/2024 Orders Only Hematology/Oncology [address] [place] 200 [facility] [place] [phone] Alex Vega MD 200 [facility] [place] [address] Allergies Active Allergy Reactions Criticality Noted Date Comments Vancomycin Low 03/16/2022 documented as of this encounter (statuses as of 07/13/2024) Medications MULTIVITAMINS PO TABS one a day [...] as of this encounter (statuses as of 07/13/2024) Active Problems Problem Noted Date Diagnosed Date Dehydration 07/05/2024 Malignant neoplasm of overla pping sites of left breast in female, estrogen receptor negative 06/14/2024 Encounter for antineoplastic chemotherapy 2023 Prevention of chemotherapy-induced neutropenia 1 08/14/2023 Food insecurity 05/31/2024 Overview: Per [facility] Protocol ASCUS with positive high risk HPV cervical 06/04 Major depressive disorder, r ecurrent severe without psychotic features 04/10/2023 Major depressive disorder, single episode, moder ate 06/07/2021 Encounter for other general counseling or advice on contraception 04/27/2010 Overview (04/20/2024): ICD-10 update of inactive term documented as of this encounter (statuses as of 07/13/2024) Resolved Problems Problem Noted Date Diagnosed Date Resolved Date Current mild episode of chente r depressive disorder without prior episode 08/19/2018 4 ABN PAP SMEAR-CERVIX 999 Encounter for supervision of other normal 05/28/2016 Overview (11/21/2015): ICD-10 update of inactive term documented as of this encounter (statuses as of 07/13/2024) Immunizations Name Administration Dates Next Due TD [...] 07/15/2024 12:00 PM EST Office Visit Hematology/Oncology [facility] [place] [address] [place] [phone] Ama Barksdale CRNP 400 [facility] [place] [address] 07/19/2024 8:30 AM EST Laboratory Laboratory [facility] 200 [facility] [place] [phone] Rayna, Lab [facility] 200 [facility] [place] [address] 07/19/2024 9:30 AM EST Hem[facility] [address] [place] [phone] Rayna, Chair 8 Hem Onc [facility] 200 [facility] [place] [address] 08/05/2024 1:45 PM EST Telemedicine Genetics HemOnc, [facility] [address] [place] [address] Sofia Eldridge, MS [address] [facility] [place] [address] Scheduled Procedures Name Priority Associated Diagnoses Date/Ti [...] this encounter Medical Devices Implanted Type Area Ditcher Operator Device Identifier Shelf Expiration Date Model / Serial / Lot Mediport Power Mri 8fr [id number] - [id number] Implanted:Qty : 1 on 06/23/2024 by Rubén Hou MD at OR [facility] Right: Chest CR BARD : PERIPHERAL VASCULAR 06/19/2025 [id number] / / [id number] Port Implant W8f Poly Cath - [id number] Implanted:Qty : 1 on 06/23/2024 by Rubén Hou MD at OR [facility] CR BARD : PERIPHERAL VASCULAR [id number] 06/19/2025 [id number] / / [id number] documented as of this encounter Care Teams Public Health Veterinarian Relationship Specialty Start Date End Date Jewell Leyva, EUGENIA [address] [place] [address] PCP - General Physician Biomedical Repair Technician 05/10/24 documented as of this encounter
--- OUTSIDE RECORDS SUMMARY | 2024-10-09 06:35 | External Medical Summary | Summary of Care ---
Author Name Unknown Organization [facility] Address [address] [facility] [place] [address] Phone [phone] Care Team Providers Care Burning Machine Operator Name Role Phone Jewell Leyva EUGENIA Primary Care Provider [phone] Reason for Referral * Social Care (Within 3 days (urgent)) - Authorized Specialty Diagnoses / Procedures Referred By Jacobo lo Referred To Contact Can Vacuum Tester Diagnoses Malignant neoplasm of overlapping sites of left breast in female, estrogen receptor negative (HCC) Celia Beard MD [address] [place] [address] Phone: tel: fax: Referral ID Status Reason Start Date Expiration Date Visits Requested Visits Authorized [id number] Authorized Specialty Services Required 4 999 999 Question Answer Referral Priority Within 3 days (urgent) Where should this appointment be scheduled? [facility] Role Forest And Conservation Worker Referring Reason: Coordinate Cancer Resources, Minesh assistance, Financial assistance Encounter Details Date Type Department Care Team (Late st Contact Info) Description 07/05/2024 Orders Only Hematology/Oncology [place] [address] [place] [phone] Celia Beard MD [address] [place] [address] Malignant neoplasm of overlapping sites of left [...] No 05/17/2024 Does the household have a [facility] source of income? (Household - for ages [...] EST Laboratory Laboratory [place] [address] [place] [phone] [place] [address] 07/19/2024 9:00 AM EST Office Visit Hematology/Oncology [place] [address] [place] [address] [phone] Celia Beard MD [address] [place] [address] 07/19/2024 9:30 AM EST Hem/Onc Treatment Hematology/Oncology Treatment, [place] [address] [place] [phone] Park, Chair 8 Hem Onc [place] [address] [place] [address] 09/16/2024 8:00 AM EST Telemedicine Genetics HemOnc, [facility] [address] [place] [address] Sofia Eldridge, MS [address] [place] [address] Scheduled Procedures Name Priority Associated Diagnoses Date/Ti me COLONOSCOPY FLEXIBLE PROXIMAL DIAGNOSTIC Recall Screen for colon cancer Scheduled Referrals Name Type Priority Associated Diagnoses Orde r Schedule POPULATION HEALTH REFERRAL OP Referral Within 3 days (urgent) Malignant neoplasm of overlapping sites of left breast in female, estrogen receptor negative (HCC) Ordered: 07/05/2024 Health Maintenance Due Date Last Done Comments [...] this encounter Medical Devices Implanted Type Area Rn Transition Device Identifier Shelf Expiration Date Model / Serial / Lot Mediport Power Mri 8fr [id number] - [id number] Implanted:Qty : 1 on 06/23/2024 by Rubén Hou MD at OR [facility] Right: Chest CR BARD : PERIPHERAL VASCULAR 06/19/2025 [id number] / / [id number] Port Implant W8f Poly Cath - [id number] Implanted:Qty : 1 on 06/23/2024 by Rubén Hou MD at OR [facility] CR BARD : PERIPHERAL VASCULAR [id number] 06/19/2025 [id number] / / [id number] documented as of this encounter Visit Diagnoses Diagnosis Malignant neoplasm of overlapping sites of left breast in female, estrogen receptor negative (HCC)- Primary documented in this encounter Care Teams Burning Machine Operator Relationship Specialty Start Date End Date Jewell Leyva PA-C [address] [place] [address] PCP - General Physician Grocery Bagger 05/10/24 documented as of this encounter
--- OUTSIDE RECORDS SUMMARY | 2024-10-09 06:35 | External Medical Summary ---
Author Name Unknown Address Unknown Organization K09:[facility] [address] [place] [address] Laboratory Report Ordering Provider Test Date Status GENE RUIZ 07/19/2024 08:32:28 Final Observation Date Value Abnormality Reference (Units ) Status BUN 07/19/2024 08:32:28 19 6-20 (mg/dL) Final Creatinine 07/19/2024 08:32:28 0.7 0.5-1.0 (mg/dL) Final Glomerular filtration rate/1.73 sq M.predicted [Volume Rate/Area] in Serum, Plasma or Blood by Creatinine-based formula (CKD-EPI) 07/19/2024 08:32:28 >90 >=60 (mL/min) Final eGFR is calculated based on the CKD-EPI 2020 equation. Sodium 07/19/2024 08:32:28 140 135-146 (m mol/L) Final Potassium 07/19/2024 08:32:28 4.3 3.5-5.1 (m mol/L) Final Cl 07/19/2024 08:32:28 104 98-107 (mm ol/L) Final CO2 07/19/2024 08:32:28 21 Below low normal 22- 32 (mmol/L) Final Anion gap 07/19/2024 08:32:28 15 7-15 (mmol /L) Final Glucose 07/19/2024 08:32:28 158 Above high normal 70 -120 (mg/dL) Final Albumin 07/19/2024 08:32:28 4.4 3.8-5.0 (g /dL) Final AST (Aspartate aminotransferase) 07/19/2024 08:32:28 22 10-35 (U/L) Fin al Alk Phos 07/19/2024 08:32:28 124 35-130 (U/ L) Final Bilirubin, Total 07/19/2024 08:32:28 0.4 <=1 .2 (mg/dL) Final Calcium 07/19/2024 08:32:28 9.5 8.4-10.2 ( mg/dL) Final Protein 07/19/2024 08:32:28 7.1 6.0-8.3 (g /dL) Final ALT (Alanine aminotransferase) 07/19/2024 08:32:28 90 Above high normal 10-35 (U/L) Final Performing Location [facility] - [address] [place] [address]
--- OUTSIDE RECORDS SUMMARY | 2024-10-09 06:35 | External Medical Summary | Summary of Care ---
Author Name Unknown Organization [facility] Address [address] [facility] [place] [address] Phone [phone] Care Team Providers Care Director Visual Name Role Phone Jewell Leyva EUGENIA Primary Care Provider [phone] Encounter Details Date Type Department Care Team (Late st Contact Info) Description 07/13/2024 Orders Only Hematology/Oncology [address] [place] 200 [facility] [place] [phone] Alex Vega MD 200 [facility] [place] [address] Allergies Active Allergy Reactions Criticality Noted Date [...] 1 08/14/2023 Food insecurity 05/31/2024 Overview: Per [facility] Protocol ASCUS with positive high risk [...] 07/15/2024 12:00 PM EST Office Visit Hematology/Oncology [facility] [place] [address] [place] [phone] Ama Barksdale CRNP 400 [facility] [place] [address] 07/19/2024 8:30 AM EST Laboratory Laboratory [facility] 200 [facility] [place] [phone] Rayna, Lab [facility] 200 [facility] [place] [address] 07/19/2024 9:30 AM EST Hem[facility] [address] [place] [phone] Rayna, Chair 8 Hem Onc [facility] 200 [facility] [place] [address] 08/05/2024 1:45 PM EST Telemedicine Genetics HemOnc, [facility] [address] [place] [address] Sofia Eldridge, MS [address] [place] [address] Scheduled Procedures Name Priority Associated Diagnoses Date/Ti [...] this encounter Medical Devices Implanted Type Area Imcu Specialist Device Identifier Shelf Expiration Date Model / Serial / Lot Mediport Power Mri 8fr [id number] - [id number] Implanted:Qty : 1 on 06/23/2024 by Rubén Hou MD at OR [facility] Right: Chest CR BARD : PERIPHERAL VASCULAR 06/19/2025 [id number] / / [id number] Port Implant W8f Poly Cath - [id number] Implanted:Qty : 1 on 06/23/2024 by Rubén Hou MD at OR [facility] CR BARD : PERIPHERAL VASCULAR [id number] 06/19/2025 [id number] / / [id number] documented as of this encounter Care Teams Director Visual Relationship Specialty Start Date End Date Jewell Leyva, EUGENIA [address] [place] [address] PCP - General Physician Fitness Studies Teacher 05/10/24 documented as of this encounter
--- OUTSIDE RECORDS SUMMARY | 2024-10-09 06:35 | External Medical Summary | Summary of Care ---
Author Name Unknown Organization [facility] Address [address] [place] [address] Phone [phone] Care Team Providers Care Administrative Tech Name Role Phone Jewell Leyva EUGENIA Primary Care Provider [phone] Reason for Visit * Reason Onset Date Comments Appointment 07/12/2024 Encounter Details Date Type Department Care Team (Late st Contact Info) Description 07/12/2024 Telephone Hematology/Oncology Treatment, [place] [address] [place] [address] Celia Beard MD Appointment Allergies Active Allergy Reactions Criticality Noted Date Comments Vancomycin Low 03/16/2022 documented as of this encounter (statuses as of 07/15/2024) Medications MULTIVITAMINS PO TABS one a day [...] as of this encounter (statuses as of 07/15/2024) Active Problems Problem Noted Date Diagnosed Date Dehydration 07/05/2024 Malignant neoplasm of overla pping sites of left breast in female, estrogen receptor negative 06/14/2024 Encounter for antineoplastic chemotherapy 2023 Prevention of chemotherapy-induced neutropenia 1 08/14/2023 Food insecurity 05/31/2024 Overview: Per [facility] Protocol ASCUS with positive high risk HPV cervical 06/04 Major depressive disorder, r ecurrent severe without psychotic features 04/10/2023 Major depressive disorder, single episode, moder ate 06/07/2021 Encounter for other general counseling or advice on contraception 04/27/2010 Overview (04/20/2024): ICD-10 update of inactive term documented as of this encounter (statuses as of 07/15/2024) Resolved Problems Problem Noted Date Diagnosed Date Resolved Date Current mild episode of chente r depressive disorder without prior episode 08/19/2018 4 ABN PAP SMEAR-CERVIX 999 Encounter for supervision of other normal 05/28/2016 Overview (11/21/2015): ICD-10 update of inactive term documented as of this encounter (statuses as of 07/15/2024) Immunizations Name Administration Dates Next Due TD [...] 07/15/2024 12:00 PM EST Office Visit Hematology/Oncology [facility] [place] [address] [place] [phone] Ama [facility]dale [facility] 400 [facility] [address] 07/19/2024 8:30 AM EST Laboratory Laboratory [facility] Rayna [place] [address] [place] [phone] Rayna, Lab [facility] [address] [facility] [place] [address] 07/19/2024 9:30 AM EST Hem/Onc Treatment Hematology/Oncology Treatment, [place] [address] [place] [phone] Rayna, Chair 8 Hem Onc [facility] [address] [place] [address] 08/05/2024 1:45 PM EST Telemedicine Genetics HemOnc, C [address] [place] [address] Sofia Eldridge, MS [address] [place] [address] Scheduled Procedures Name Priority Associated Diagnoses Date/Ti [...] this encounter Medical Devices Implanted Type Area Components Engineer Device Identifier Shelf Expiration Date Model / Serial / Lot Mediport Power Mri 8fr [id number] - [id number] Implanted:Qty : 1 on 06/23/2024 by Rubén Hou MD at OR [facility] Right: Chest CR BARD : PERIPHERAL VASCULAR 06/19/2025 [id number] / / [id number] Port Implant W8f Poly Cath - [id number] Implanted:Qty : 1 on 06/23/2024 by Rubén Hou MD at OR [facility] CR BARD : PERIPHERAL VASCULAR [id number] 06/19/2025 [id number] / / [id number] documented as of this encounter Care Teams Administrative Tech Relationship Specialty Start Date End Date Gordon October EUGENIA Mckinney [address] [place] [address] [place] [address] PCP - General Physician Card Cleaner 05/10/24 documented as of this encounter
--- OUTSIDE RECORDS SUMMARY | 2024-10-09 06:35 | External Medical Summary | Summary of Care ---
Author Name Unknown Organization [facility] Address [address] [place] [facility] [place] [facility] [place] [address] Phone [phone] Care Team Providers Care Clinical Trials Manager Name Role Phone Jewell Leyva Faye BELLO Primary Care Provider [phone] Reason for Visit * Reason Onset Date Comments Appointment 07/12/2024 Encounter Details Date Type Department Care Team (Late st Contact Info) Description 07/12/2024 Telephone Hematology/Oncology Treatment, [place] [address] [place] [address] Celia Baerd MD 400 [facility] [place] [address] Appointment Allergies Active Allergy Reactions Criticality Noted [...] 1 08/14/2023 Food insecurity 05/31/2024 Overview: Per [facility] Protocol ASCUS with positive high risk [...] 07/15/2024 12:00 PM EST Office Visit Hematology/Oncology [facility] 200 [facility] [place] [phone] Ama Barksdale CRNP [address] [place], [place] [address] [address] 07/19/2024 8:30 AM EST Laboratory Laboratory [facility] [place] [address] [place] [phone] Rayna, Lab [facility] [address] [place] [address] 07/19/2024 9:30 AM EST Hem/Onc Treatment Hematology/Oncology Treatment, [place] [address] [place] [phone] Rayna, Chair 8 Hem Onc [place] [address] [address] [address] 08/05/2024 1:45 PM EST Telemedicine Genetics [facility], [facility] [address] [place] [address] Sofia Eldridge, MS [address] [place] [address] Scheduled Procedures Name Priority Associated Diagnoses Date/Ti [...] this encounter Medical Devices Implanted Type Area Top Executive Device Identifier Shelf Expiration Date Model / Serial / Lot Mediport Power Mri 8fr [id number] - [id number] Implanted:Qty : 1 on 06/23/2024 by Rubén Hou MD at OR [facility] Right: Chest CR BARD : PERIPHERAL VASCULAR 06/19/2025 [id number] / / [id number] Port Implant W8f Poly Cath - [id number] Implanted:Qty : 1 on 06/23/2024 by Rubén Hou MD at OR [facility] CR BARD : PERIPHERAL VASCULAR [id number] 06/19/2025 [id number] / / [id number] documented as of this encounter Care Teams Clinical Trials Manager Relationship Specialty Start Date End Date Codieoctober EUGENIA Mckinney 200 [facility] [place] [address] PCP - General Physician Webbing Seamer Pound Net 05/10/24 documented as of this encounter
--- OUTSIDE RECORDS SUMMARY | 2024-10-09 06:35 | External Medical Summary | Summary of Care ---
Author Name Unknown Organization [facility] Address [address] [facility] [address] Phone [phone] Care Team Providers Care Sde Name Role Phone Jewell Davsi EUGENIA Primary Care Provider Reason for Visit * Reason Comments eRx-Medication Refill Encounter Details Date Type Department Care Team (Late st Contact Info) Description 07/11/2024 Refill Family Practice [facility] 200 [place] [address] Samm Costa III, MD 200 [place] [address] Allergies Active Allergy Reactions Criticality Noted Date [...] BY MOUTH EVERY MORNING 90 Tablet 1 024 Active PARoxetine HCl 40 MG Oral [...] 1 08/14/2023 Food insecurity 05/31/2024 Overview: Per [facility] Protocol ASCUS with positive high risk [...] encounter Miscellaneous Notes * Telephone Encounter - Daisy Pisano [facility] - 07/13/2024 4:48 AM ESTSigned Prescriptions: Disp Refills PARoxetine HCl 40 MG Oral Tablet (pAXil) 90 Tab*1 Sig: TAKE 1 TABLET BY MOUTH EVERY MORNINGAuthorizing Provider: JEWELL DAVIS AOrdering User: DAISY PISANO---- documented in this encounter Plan of Treatment Upcoming Encounters Date Type Department Care Team (Late st Contact Info) Description 07/15/2024 12:00 PM EST Office Visit Hematology/Oncology [place] [address] [place] [place] [phone] Ama Barksdale CRNP 400 [facility] [place] [address] 07/19/2024 8:30 AM EST Laboratory Laboratory [place] [place] [address] [place] [place] [phone] [place], [place] [address] 07/19/2024 9:30 AM EST Hem/Onc Treatment Hematology/Oncology Treatment, [place] [address] [place] [phone] Rayna, Chair 8 Hem Onc [address] [place] [address] 08/05/2024 1:45 PM EST Telemedicine Genetics HemOnc, [facility] 100 [place] [address] Sofia Eldridge, MS [address] [place] [address] Scheduled Procedures Name Priority Associated Diagnoses Date/Ti [...] encounter Medical Devices Implanted Type Area Clinical Nursing Professor Device Identifier Shelf Expiration Date Model / Serial / Lot Mediport Power Mri 8fr [id number] - [id number] Implanted:Qty : 1 on 06/23/2024 by Rubén Hou MD at OR [facility] Right: Chest CR BARD : PERIPHERAL VASCULAR 06/19/2025 [id number] / / [id number] Port Implant W8f Poly Cath - [id number] Implanted:Qty : 1 on 06/23/2024 by Rubén Hou MD at OR [facility] CR BARD : PERIPHERAL VASCULAR [id number] 06/19/2025 [id number] / / [id number] documented as of this encounter Care Teams Sde Relationship Specialty Start Date End Date Gordon Jewell EUGENIA Mckinney [address] [place] [address] PCP - General Physician Torch Cutter 05/10/24 documented as of this encounter
--- OUTSIDE RECORDS SUMMARY | 2024-10-09 06:35 | External Medical Summary | Summary of Care ---
Author Name Unknown Organization [facility] Address [address] [facility] [place] [address] Phone [phone] Care Team Providers Care Lead Maintenance Technician Name Role Phone Jewell Leyva EUGENIA Primary Care Provider [phone] Reason for Visit * Reason Comments Chemotherapy Chemo/recheck Encounter Details Date Type Department Care Team (Late st Contact Info) Description 06/28/2024 9:15 AM EST Office Visit Hematology/Oncology [facility] [address] [place] [address] Celia Beard MD [address] [facility] [place] [phone] Malignant neoplasm of overlapping sites of left breast in female, estrogen receptor negative (HCC)*; Encounter for antineoplastic chemotherapy Allergies Active Allergy Reactions Criticality Noted Date Comments Vancomycin Low 03/16/2022 documented as of this encounter (statuses as of 07/06/2024) Medications MULTIVITAMINS PO TABS one a day [...] Additional Information Patient not taking.Reported on 06/23/2024 Amoxicillin-Pot Clavulanate 875-125 MG Oral Tablet (Augmentin)Indicat [...] Pain, Severe. 90 Tablet 06/28/20 24 Active Amoxicillin-Pot Clavulanate 875-125 MG Oral Tablet (Augmentin)Indicat ions:Malignant neoplasm of overlapping sites of left breast in female, estrogen receptor negative (HCC) Take 1 Tablet by mouth in the morning and 1 Tablet before bedtime. 28 Tablet 06/14/20 24 024 Discontin ued(Refil l) oxyCODONE-Acetamin ophen 5-325 MG Oral Tablet (Percocet)Indicati ons:Malignant neoplasm of overlapping sites of left breast in female, estrogen receptor negative (HCC) Take 2 Tablets by mouth every 6 hours as needed for Pain, Mild, Pain, Moderate or Pain, Severe. 90 Tablet 06/14/20 24 024 Discontin ued(Refil l) documented as of this encounter (statuses as of 07/06/2024) Active Problems Problem Noted Date Diagnosed Date Dehydration 07/05/2024 Malignant neoplasm of overla pping sites of left breast in female, estrogen receptor negative 06/14/2024 Encounter for antineoplastic chemotherapy 2023 Prevention of chemotherapy-induced neutropenia 1 08/14/2023 Food insecurity 05/31/2024 Overview: Per [facility] Protocol ASCUS with positive high risk HPV cervical 06/04 Major depressive disorder, r ecurrent severe without psychotic features 04/10/2023 Major depressive disorder, single episode, moder ate 06/07/2021 Encounter for other general counseling or advice on contraception 04/27/2010 Overview (04/20/2024): ICD-10 update of inactive term documented as of this encounter (statuses as of 07/06/2024) Resolved Problems Problem Noted Date Diagnosed Date Resolved Date Current mild episode of chente r depressive disorder without prior episode 08/19/2018 4 ABN PAP SMEAR-CERVIX 999 Encounter for supervision of other normal 05/28/2016 Overview (11/21/2015): ICD-10 update of inactive term documented as of this encounter (statuses as of 07/06/2024) Immunizations Name Administration Dates Next Due TD [...] Sign Reading Time Taken Comments Blood Pressure 114/72 06/28/2024 9:32 AM EST Pulse 82 06/28/2024 9:32 AM EST Temperature 37.3 C (99.1 F) 06/28/2024 9:32 AM ES T Respiratory Rate - - Oxygen Saturation 95% 06/28/2024 9:32 AM EST Inhaled Oxygen Concentration - - Weight 93.5 kg (206 lb 1.6 oz) 06/28/2024 9:32 A M EST Height - - Body Mass Index 34.26 06/24/2024 3:07 PM EST documented in this encounter Progress Notes * Celia Beard MD - 06/28/2024 9:37 AM EST Date of visit: 06/28/2024 Subjective Radha Fung is a 48 year old female returns for follow up on 06/28/2024 and received the 1st cycle of chemotherapy. Her last office visit on 06/14/2024 when she was seen for Medical Oncology consultation. Please see the details below in HPI HPI: Date of visit: 06/14/2024 Referred by Fawn Lindsay MD Referral (Urgent)/ Reason for consultation: Malignant neoplasm of upper-inner quadrant of left breast in female, estrogen receptor negative (HCC) [C50.212, Z17.1] for neoadjuvant chemotherapy due to very aggressive, enlarging breast ca. ER neg Radha Fung is a 48 year old, overall healthy woman, seen on 06/14/2024 for Hematology-Oncology consultation, she presents accompanied by her due to the finding of large left breast cancer, and reports the tumor mass has been rapidly enlarging. She was recently seen by Dr. Lindsay on 06/08/2024 and referred to Medical Oncology for consideration for neoadjuvant chemotherapy to treat this highly aggressive and rapidly enlarging mass biopsy-proven to be Left breast invasive ductal carcinoma, grade 3 TNBC ( ER negative, UT weak mostly negative , HER2 Monroe negative 1+ IHC). Initially this [...] the background. Additional core biopsies are recommended. at 1204 Prior Cancer None Indication for Procedure left breast enlarging cyst Gross Description A. Breast, Left. Received are 2 air dried and 2 fixed slides and specimen in RPMI labeled with name: Radha Fung and breast, left and verified with the patient's name and date of . Specimen sent for cell block. The slides are stained and specimen is prepared for cell block at [facility]. The cell block is submitted in cassette A1 and processed at [facility]. Prepared by: Formalin fixation time: 7 hours Performing Labs Segment Producer screening performed at [facility] ([facility]), [facility] [place] [address]. Pathologist sign out performed at [facility] ([facility]), [facility] [place] [address]. 06/02/2024: Core needle biopsy of the Left breast enlarging complex solid and cystic mass that was palpated at 11:00 and at a distance of 9 cm from the nipple was performed that showed grade 3 (SBR 3, 3, 3), invasive ductal carcinoma, associated with extensive necrosis, the tumor cells being negative for estrogen receptor protein expression, showing weak positivity (1+ average intensity scoring of 10% nuclear membrane) for progesterone receptor protein expression and HER2 oncoprotein expressionbeing negative (1+ average membranous intensity)- therefore consistent with almost a triple negative breast cancer with highly aggressive histologic features.This is an invasive ductal carcinoma (SBRgrade of 3, 3, 3). Tumor in the cortical biopsy specimen measures 4mm. Tumor cells are positive forE-cadherin; features of ductal origin. BNC-5 reveals neoplastic basaloid phenotype without myoepithelial layer around the invasive tumor nests. Kath-3 and TRPS1 highlight tumor cells. ER is negative. 06/02/2024: SURGICAL PATHOLOGY: [id number] Component Final Diagnosis A. Breast, Left, left breast 11:00 9cm FN - palpable, core biopsy: Invasive ductal carcinoma, histologic grade 3, associated extensive necrosis Predictive markers ordered at 1024 Order Comments Enlarging complex solid and cystic mass left breast 11:00 concerning for malignancy Gross Description A. Breast, Left. Received in formalin with a container labeled with "Radha Fung", "[id number]", "1975" and "left breast, eleven o'clock, 9 cm from nipple". Received are multiple cores of khan-yellow fibroadipose tissue ranging from 0.3 cm to 0.8 cm in length, each approximately 0.2 cm in diameter. The specimen is entirely submitted in cassettes A1. Collection/ischemic time: time 1047, date 06/02/2024, time in formalin: time not provided, date 06/02/2024. Gross By: MF Microscopic Description This is an invasive ductal carcinoma (SBR grade of 3, 3, 3). Tumor measures 4mm. Tumor cells are positive for E-cadherin; features of ductal origin. BNC-5 reveals neoplastic basaloid phenotype without myoepithelial layer around the invasive tumor nests. Kath-3 and TRPS1 highlight tumor cells. ER isnegative. Photographic images and diagrams represent olmos findings in this case; they are not intended to replace a complete review of the final diagnostic report. The following statement applies to Flow Cytometry, Histology, In situ Hybridization Assays and Molecular Genetics. This test was developed and performed at [facility] and its performance characteristics determined by [employer]. It has not been cleared or approved by the U.S. Food and Drug Administration. The FDA has determined that such clearance or approval is not necessary. This test is used for clinical purposes. It should not be regarded as investigationalor for research. Special stains, including histochemical stains, and studies using immunologic and RICHARD methodology (where applicable) are p 06/04/2023: Pap smear: Was found to be satisfactory for evaluation and show transformation zone in the specimen that was found to be negative for intraepithelial lesion or malignancy of the cervix (as per [place] system) Radiology test results were reviewed with the patient: 06/10/2024: Bilateral MRI breasts MR (magnetic resonance) imaging was performed utilizing multiple sequences. Following the intravenous administration of gadolinium, dynamic scanning was performed. Kinetic analysis was evaluated withL'ArcoBaleno software. Films Compared 06/02/2024 US GUIDED BREAST [...] year is recommended for the right breast. 06/02/2024: POST BIOPSY CLIP PLACEMENT ADDENDUM: A. Breast, Left, left breast 11:00 9cm FN - palpable, core biopsy: Invasive ductal carcinoma, histologic grade 3, associated extensive necrosis Imaging and pathology are concordant. Pathology results were relayed to the patient by the clinician on June 08, 2024. Surgical and oncologic consultation are recommended at this time. The patient is already established with our surgical team and oncologic consultation is scheduled for next week. Signed by Federica Bailey MD on 06/11/2024 15:22 06/02/2024: US GUIDED BREAST BIOPSY LEFT; MAMMOGRAM POST BIOPSY CLIP PLACEMENT HISTORY left breast cyst aspiration in office, refilled and cytology abnormal. please do core biopsy; abnormal mammogram COMPARISON Prior examination March 18, 2024 TECHNIQUE was present for and performed the entire procedure. FINDINGS After a discussion of risks, benefits and alternative to the procedure as well as a detailed explanation of the procedure, the patient was given the opportunity to ask questions. After her questions were answered to her satisfaction, informed consent with agreement of procedure, site and position wa s obtained. A timeout procedure was performed by Dr. Federica Bailey in the presence of Chelsie Young and it was confirmed that procedure matches verbalized consent. All necessary equipment was available prior to procedure. The site of the intended procedure was marked on the skin. Patient denies allergies to lidocaine or tape. She has no known blood dyscrasias and is not taking anticoagulantmedication. Preliminary ultrasound demonstrates complex appearing cystic mass left breast eleven o'clock 9 cm from the nipple at area palpable concern measuring 51 x 49 by 52 mm. Overlying edema is present. Targeted sonographic evaluation of the left axilla demonstrates normal-appearing lymph nodes. The patient notes new mild left nipple retraction following recent clinically based aspiration. Targeted sonographic evaluation of the retroareolar left breast demonstrates mild ductal ectasia. Using aseptic technique, local anesthesia with 1% buffered lidocaine, and ultrasound guidance, corebiopsy was performed. Passes through the target were documented. A heart shaped marker was placed in the nodule. Post procedural mammogram verified clip placement. The patient tolerated the procedurewell and there were no complications. Specimens were sent to surgical pathology and results are pending. Written discharge instructions were given to the patient and also reviewed verbally with her. The patient expressed understanding of the instructions and was discharged from the department in stable condition. IMPRESSION IMPRESSION Ultrasound-guided core biopsy of left breast mass performed. 03/18/2024: US BREAST LIMITED LEFT + MAMMOGRAM DIAGNOSTIC KEN LEFT History: Breast thickening Family medical history includes ovarian [...] symptomatic relief. BI-RADS Category: 2 - Benign. 01/16/2024: US BREAST LIMITED LEFT +MAMMOGRAM DIAGNOSTIC KEN BILATERAL History: Lump in upper inner quadrant of left breast. Breast cyst, left Family medical history includes ovarian cancer in grandmother (paternal). Films Compared 03/25/2023 MAMMOGRAM DIAGNOSTIC LEFT, 03/25/2023 US BREAST LIMITED LEFT, 03/14/2023 MAMMOGRAM SCREENING KEN BILATERAL, and 10/04/2019 MAMMOGRAM SCREENING KEN BILATERAL Findings Left MAMMOGRAM DIAGNOSTIC KEN BILATERAL/US BREAST LIMITED LEFT The left breast is heterogeneously dense, which may obscure small masses. The patient presents witharea of palpable concern left breast eleven o'clock. There is a posterior depth 18 mm left breast eleven o'clock mass on mammogram. Targeted ultrasound demonstrates a corresponding simple cyst withinthe left breast eleven o'clock 9 cm from the nipple measuring 16 x 14 x 15 mm. Right MAMMOGRAM DIAGNOSTIC KEN BILATERAL The right breast is heterogeneously dense, which may obscure small masses. There is no evidence of suspicious masses, calcifications, or other abnormal findings in the right breast. Impression: Area of palpable concern within the left breast eleven o'clock corresponds to a simple cyst. BI-RADS Category: 2 - Benign. 03/25/2023: MAMMOGRAM DIAGNOSTIC LEFT, US BREAST LIMITED LEFT History Abnormal mammogram Family medical history includes colon cancer in grandmother (paternal). Films Compared 03/14/2023 MAMMOGRAM SCREENING KEN BILATERAL and 10/04/2019 MAMMOGRAM SCREENING KEN BILATERAL Findings Left MAMMOGRAM DIAGNOSTIC LEFTUS BREAST LIMITED LEFT/ The left breast is heterogeneously dense, which may obscure small masses. Previously noted posterior depth upper inner quadrant asymmetry persists on today's additional views. Fatty notch seen on mammogram compatible with a lymph node. Targeted ultrasound demonstrates a corresponding lymph node left breast 11 o'clock 5 cm from the nipple measuring 6 x 3 by 6 mm. Left nipple plane medial anterior depth 5 mm mass is also noted on true lateral view. Targeted ultrasound demonstrates a corresponding cyst left breast 9 o'clock 1 cm from the nipple measuring 5 by 3x 4 mm. Impression No mammographic evidence of malignancy. BI-RADS Category: 2 - Benign. Recommendation Resume annual screening mammography is recommended for the left breast. 03/14/2023: MAMMOGRAM SCREENING KEN BILATERAL Films Compared: 10/04/2019 MAMMOGRAM SCREENING KEN BILATERAL Findings Left The left breast is heterogeneously dense, which may obscure small masses. There is a 6 mm asymmetry seen in the upper region of the left breast in the posterior depth on theMLO (slice 57) view. This is a new finding. Right The right breast is heterogeneously dense, which may obscure small masses. There is no evidence of suspicious masses, calcifications, or other abnormal findings in the right breast. Impression Left Left breast 6 mm asymmetry at the upper posterior position. Assessment: 0 - Incomplete. Callback ultrasound and Callback diagnostic mammogram are recommended. Right No mammographic evidence of malignancy. BI-RADS Category: 0 - Incomplete: Needs Additional Imaging Evaluation. Review of Systems Constitutional: Negative. HENT: Negative. Eyes: Negative. Respiratory: Negative. Cardiovascular: Negative. Gastrointestinal: Negative. Endocrine: Negative. Genitourinary: Negative. Skin: Negative. Large left breast mass Allergic/Immunologic: Negative. Neurological: Negative. Hematological: Negative. Objective BP 131/80 (BP Site: Left Arm, BP Position: Sitting, BP Cuff Size: Regular) | Pulse 74 | Temp 36.5 C (97.7 F) (Tympanic) | Ht 1.689 m (5' 6.5") | Wt 94.3 kg (207 lb 12.8 oz) | SpO2 94% | BMI 33.04kg/m | BSA 2.1 m Physical Exam Constitutional: Appearance: Normal appearance. HENT: Head: Normocephalic and atraumatic. Eyes: General: No scleral icterus. Extraocular Movements: Extraocular movements intact. Conjunctiva/sclera: Conjunctivae normal. Pupils: Pupils are equal, round, and reactive to light. Cardiovascular: Rate and Rhythm: Normal rate and regular rhythm. Heart sounds: No murmur heard. Pulmonary: Effort: Pulmonary effort is normal. Breath sounds: Normal breath sounds. Chest: Breasts: Right: Normal. Left: Swelling, mass, skin change and tenderness present. No bleeding, inverted nipple or nipple discharge. Comments: Almost 10 cm mass palpated in the left breast medially extending to the skin, tender to palpation and warmth to touch. Slight erythema present. No nipple discharge seen. Lymphadenopathy notpalpated in the axilla or supraclavicular or cervical lymph nodes not palpated. Abdominal: General: Abdomen is flat. Bowel sounds are normal. Palpations: Abdomen is soft. Musculoskeletal: Cervical back: Normal range of motion and neck supple. No tenderness. Lymphadenopathy: Cervical: No cervical adenopathy. Skin: Coloration: Skin is not jaundiced or pale. Findings: No bruising. Neurological: General: No focal deficit present. Mental Status: She is alert and oriented to person, place, and time. Psychiatric: Mood and Affect: Mood normal. Behavior: Behavior normal. Thought Content: Thought content normal. Judgment: Judgment normal. ASSESSMENT 48-year-old with Multicentric locally advanced Left breast, grade 3, ER negative UT weakly positive, HER2 Monroe negative, invasive ductal carcinoma, SBR grade of 3, 3, 3. Tumor cells are positive for E-cadherin features of ductal origin. BN/C-5 reveals neoplastic basaloid phenotype without myoepithelial layer around the invasive tumor cells. GATA3 and TURP S1 eyelid tumor cells. ER is negative. Thebasilar phenotype is consistent with triple negative breast cancer and shows general aggressive nature of the tumor. Reviewed the MRI b/l breasts results and images with the patient and her and is concerning for a large mass in the Left upper inner quadrant biopsy-proven invasive ductal carcinoma measures 5.1 x 5.1 x 4.9 cm, with solid and cystic components and with irregular and nodular peripheral enhancement. There is associated mass effect as well as edema within the adjacent breast parenchyma. In addition, lateral to the biopsy-proven invasive ductal carcinoma there are multiple similar appearing cystic masses with peripheral rim enhancement spanning approximally 2.0 x 4.1 x 3.6cm. These masses are concerning for satellite lesions. Another conglomerate of probable satellite masses medial to the dominant mass measure approximately 22 x 18 x 24 mm. Additional probable clusterof satellite masses along the inferior medial margin of the biopsy-proven invasive ductal carcinomameasures 16 x 20 x 9 mm. There are multiple enlarged left axillary lymph nodes-left axillary lymph node measuring 18 x 12 by12 mm . Left axillary lymphadenopathy was not able to be appreciated on ultrasound from June 02, 2024, likely due to posterior depth of these lymph nodes. Left internal mammary lymphadenopathy also noted, for example left internal mammary lymph node measuring 14 x 14 mm is seen due to the medial location of the tumor. In addition there is hyperenhancement and thickening of the medial left breast skin- worrisome for dermal invasion. The blood vessels supplying the left breast are asymmetrically enlarged in comparison to the right. Edema posterior to the biopsy-proven invasive ductal carcinoma abuts the left pectoralis musculature. There is no clear chest wall invasion identified. Biopsy-proven left upper inner quadrant invasive ductal carcinoma. Multiple similar appearing masses surrounding and in direct continuity with the primary malignancy concerning for satellite masses. Hyperenhancement and thickening of the superomedial left breast skin concerning for dermal invasion. Asymmetric enlargement of left breast vasculature in comparison to the right concerning for neovascularization. Left axillary and internal mammary lymphadenopathy concerning for metastatic disease. ECOG performance status =1 PLAN OF CARE DISCUSSED WITH PATIENT ON 06/14/2024 : Malignant neoplasm of overlapping sites of left breast in female, estrogen receptor negative (HCC) (Primary) - CBC WITH WBC DIFFERENTIAL; Future; Expected date: 06/14/2024 - COMPREHENSIVE METABOLIC PANEL; Future; Expected date: 06/14/2024 - PT INR; Future; Expected date: 06/14/2024 - CEA; Future; Expected date: 06/14/2024 - CA 27.29; Future; Expected date: 06/14/2024 - LD; Future; Expected date: 06/14/2024 - HEPATITIS C ANTIBODY SCREEN WITH PROGRESSION TO HEPATITIS C RNA QUANTITATIVE; Future; Expected date: 06/14/2024 - HEPATITIS B SURFACE ANTIBODY; Future; Expected date: 06/14/2024 - HEPATITIS B SURFACE ANTIGEN; Future; Expected date: 06/14/2024 - HEPATITIS B CORE ANTIBODIES IGG AND IGM; Future; Expected date: 06/14/2024 - PET CT SKULL BASE TO MID-THIGH FDG - ECHO, COMPLETE (2D), TRANS-THORACIC - IR VENOUS ACCESS MEDIPORT - Amoxicillin-Pot Clavulanate 875-125 MG Oral Tablet (Augmentin); Take 1 Tablet by mouth in the morning and 1 Tablet before bedtime. - oxyCODONE-Acetaminophen 5-325 MG Oral Tablet (Percocet); Take 2 Tablets by mouth every 6 hours asneeded for Pain, Mild, Pain, Moderate or Pain, Severe. Patient instructions given on 06/14/2024 Labs today - CBC WITH WBC DIFFERENTIAL; Future; Expected date: 06/14/2024- WNL - COMPREHENSIVE METABOLIC PANEL; Future; Expected date: 06/14/2024- WNL - PT INR; Future; Expected date: 06/14/2024-WNL - CEA; Future; Expected date: 06/14/2024 = 1.0 - CA 27.29; Future; Expected date: 06/14/2024 = 122 - LD; Future; Expected date: 06/14/2024 = 297 - HEPATITIS C ANTIBODY SCREEN WITH PROGRESSION TO HEPATITIS C RNA QUANTITATIVE; Future; Expected date: 06/14/2024 - HEPATITIS B SURFACE ANTIBODY; Future; Expected date: 06/14/2024 - HEPATITIS B SURFACE ANTIGEN; Future; Expected date: 06/14/2024 - HEPATITIS B CORE ANTIBODIES IGG AND IGM; Future; Expected date: 06/14/2024 - Systemic staging studies ordered: PET CT SKULL BASE TO MID-THIGH FDG PET scan was completed on 06/15/2024 and showed: Hypermetabolic left breast mass with central necrosis measures 5.7 x 4.9 cm, SUV 23.3. Prominent left axillary lymph nodes with background level activity, the largest measuring 1.0 x 1.7cm, SUV 2.1. Hypermetabolic left internal mammary lymph node measures 1.1 x 1.3 cm, SUV 10.1. There was no evidence of metabolically active intraperitoneal mass, abdominal or pelvic lymphadenopathy. There was no evidence of metabolically active bone lesions. IMPRESSION 1. Hypermetabolic left breast mass consistent with biopsy-proven invasive ductal carcinoma with associated left internal mammary kevin metastasis. 2. Prominent left axillary lymph nodes with background level activity are likely reactive. 3. No distant FDG avid metastasis. ECHO, COMPLETE (2D), TRANS-THORACIC for pre chemo LVEF evaluation = 55% LVEF Urgent IR consulted for VENOUS ACCESS MEDIPORT placement = complete on 06/23/2024 For the treatment of left breast cellulitis: Antibiotic prescribed Amoxicillin-Pot Clavulanate 875-125 MG Oral Tablet (Augmentin); Take 1 Tabletby mouth in the morning and 1 Tablet before bedtime. Patient with significant pain- oxyCODONE-Acetaminophen 5-325 MG Oral Tablet (Percocet); Take 2 Tablets by mouth every 6 hours as needed for Pain, Mild, Pain, Moderate or Pain, Severe. Consent obtained on 06/14/2024 for chemotherapy with Keytruda + Carboplatinum + paclitaxel to be given once every 21 days with pegfilgrastim given on day 2. Patient instructed to return back to clinic for follow up in about 1 week (around 06/21/2024). In the interim patient has been seen by Dr. Jill Lindsay on 06/22/2024 underwent biopsy of the left breast skin that resulted at the showed granulation tissue and granulomas with the acute and chronic inflammation deep dermis with no malignancy identified on this biopsy. Final Diagnosis A. Skin, Breast, Left, punch: [...] this sample. This sample may not be product support representative of the entire process. If the [...] important during microscopic evaluation of skin biopsies. at 1605 Clinical History left breast cancer with thickened skin Gross Description A. Breast, Left. Received in formalin with a container labeled with "Radha Fung", "[id number]", "1975" and "breast, left". Received is a skin punch biopsy measuring 0.5 x 0.4 cm. The skin surface is khan-white, smooth, dull, and slightly raised in appearance throughout. The underlying tissue is inked blue. T he specimen is bisected, wrapped in lens paper and entirely submitted in cassette A1. Gross By: LANIE Microscopic Description There is granulation tissue with ill-defined granulomas intermingled with acute and chronic inflammation in the deep dermis of the deep aspect of the punch biopsy. No keratin debris or cyst epithelial lining is identified on examined sections. No bacteria are identified on Gram stain. No fungal organisms are identified on GMS-stained sections. No acid fast bacilli are identified on Aracely stain. Nocarcinoma is identified on H&E sections or on pancytokeratin immunostain. Multiple deeper sections were examined. No polarizable exogenous material is identified. 06/28/2024: Patient returns today for Medical Oncology follow up to discuss the test results, and to start chemotherapy cycle 1 with Keytruda, Carboplatinum and paclitaxel. Labs today on 06/28/2024 shows normal CBC with WBC differential 35 PMH: Patient Active Problem List Diagnosis Encounter for other general counseling or advice on contraception Major depressive disorder, single episode, moderate (HCC) Major depressive disorder, recurrent severe without psychotic features (HCC) ASCUS with positive high risk HPV cervical Food insecurity Malignant neoplasm of overlapping sites of left breast in female, estrogen receptor negative (HCC) Encounter for antineoplastic chemotherapy Prevention of chemotherapy-induced neutropenia Current Outpatient Medications Medication Sig Dispense Refill [...] taking: Reported on 05/27/2024) 20 g 3 PARoxetine HCl 40 MG Oral Tablet (pAXil) Take 1 Tablet by mouth in the morning. 90 Tablet 1 Amoxicillin-Pot Clavulanate 875-125 MG Oral Tablet (Augmentin) Take 1 Tablet by mouth in the morning and 1 Tablet before bedtime. 28 Tablet 0 oxyCODONE-Acetaminophen 5-325 MG Oral Tablet (Percocet) Take 2 Tablets by mouth every 6 hours as needed for Pain, Mild, Pain, Moderate or Pain, Severe. (Patient not taking: Reported on 06/23/2024)90 Tablet 0 diphenhydrAMINE HCl 25 MG Oral Tablet (Benadryl) Take by mouth 1 Capsule 12 hours prior to paclitaxel infusion. (Patient not taking: Reported on 06/23/2024) 12 Tablet 0 Famotidine 20 MG Oral Tablet (Pepcid) Take by mouth 1 Tablet 12 hours prior to paclitaxel infusion. (Patient [...] taking: Reported on 06/23/2024) 30 Tablet 3 No current facility-administered medications for this visit. Review of patient's allergies indicates: Allergen Reactions Vancomycin Objective BP 114/72 (BP Site: Left Arm, BP Position: Sitting, BP Cuff Size: Regular) | Pulse 82 | Temp 37.3 C (99.1 F) (Tympanic) | Wt 93.5 kg (206 lb 1.6 oz) | SpO2 95% | BMI 34.26 kg/m | BSA 2.07 m ASSESSMENT/PLAN: There are no diagnoses linked to this encounter. Celia Beard MD documented in this encounter Nursing Notes * Matilda Watkins CMA - 06/28/2024 9:33 AM EST Patient identifed by name and [...] it for you? ALREADY ACTIVE Filed Vitals: 06/28/24 0932 BP: 114/72 Pulse: 82 Temp: 37.3 C (99.1 F) TempSrc: Tympanic SpO2: 95% Weight: 93.5 kg (206 lb 1.6 oz) [...] Description 07/19/2024 8:30 AM EST Laboratory Laboratory [facility] [place] [address] [place] [phone] Rayna Lab [facility] [address] [place] [address] 07/19/2024 9:00 AM EST Office Visit Hematology/Oncology [facility] Rayna [place] [address] [place] [phone] Celia Beard MD [address] [place] [address] [place] [address] 07/19/2024 9:30 AM EST Hem/Onc Treatment Hematology/Oncology Treatment, [place] [address] [place] [address] Rayna, Chair 8 Hem Onc [place] [address] [place] [address] 09/16/2024 8:00 AM EST Telemedicine Genetics HemOnc, [facility] [address] [place] [address] Sofia Eldridge, MS [address] [place] [address] Scheduled Procedures Name Priority Associated Diagnoses Date/Ti [...] this encounter Medical Devices Implanted Type Area Client Application Support Engineer Device Identifier Shelf Expiration Date Model / Serial / Lot Mediport Power Mri 8fr [id number] - [id number] Implanted:Qty : 1 on 06/23/2024 by Rubén Hou MD at OR [facility] Right: Chest CR BARD : PERIPHERAL VASCULAR 06/19/2025 [id number] / / [id number] Port Implant W8f Poly Cath - [id number] Implanted:Qty : 1 on 06/23/2024 by Rubén Hou MD at OR [facility] CR BARD : PERIPHERAL VASCULAR [id number] 06/19/2025 [id number] / / [id number] documented as of this encounter Visit Diagnoses Diagnosis Malignant neoplasm of overlapping sites of left breast in female, estrogen receptor negative (HCC)- Primary Encounter for antineoplastic chemotherapy documented in this encounter Care Teams Lead Maintenance Technician Relationship Specialty Start Date End Date Gordon October EUGENIA Mckinney [address] [place] [address] PCP - General Physician Human Resources Office Assistant 05/10/24 documented as of this encounter
--- OUTSIDE RECORDS SUMMARY | 2024-10-09 06:35 | External Medical Summary | Summary of Care ---
Author Name Unknown Organization [facility] Address [address] [place] [address] Phone [phone] Care Team Providers Care Mohs Surgeon/General Dermatologist Name Role Phone Jewell Leyva EUGENIA Primary Care Provider [phone] Reason for Visit * Reason Onset Date Comments Appointment 07/12/2024 Encounter Details Date Type Department Care Team (Late st Contact Info) Description 07/12/2024 Telephone Hematology/Oncology Treatment, [place] [address] [place] [address] Celia Beard MD Appointment Allergies Active Allergy Reactions Criticality Noted Date Comments Vancomycin Low 03/16/2022 documented as of this encounter (statuses as of 07/16/2024) Medications MULTIVITAMINS PO TABS one a day [...] as of this encounter (statuses as of 07/16/2024) Active Problems Problem Noted Date Diagnosed Date Dehydration 07/05/2024 Malignant neoplasm of overla pping sites of left breast in female, estrogen receptor negative 06/14/2024 Encounter for antineoplastic chemotherapy 2023 Prevention of chemotherapy-induced neutropenia 1 08/14/2023 Food insecurity 05/31/2024 Overview: Per [facility] Protocol ASCUS with positive high risk HPV cervical 06/04 Major depressive disorder, r ecurrent severe without psychotic features 04/10/2023 Major depressive disorder, single episode, moder ate 06/07/2021 Encounter for other general counseling or advice on contraception 04/27/2010 Overview (04/20/2024): ICD-10 update of inactive term documented as of this encounter (statuses as of 07/16/2024) Resolved Problems Problem Noted Date Diagnosed Date Resolved Date Current mild episode of chente r depressive disorder without prior episode 08/19/2018 4 ABN PAP SMEAR-CERVIX 999 Encounter for supervision of other normal 05/28/2016 Overview (11/21/2015): ICD-10 update of inactive term documented as of this encounter (statuses as of 07/16/2024) Immunizations Name Administration Dates Next Due TD [...] Description 07/19/2024 8:30 AM EST Laboratory Laboratory [facility] [place] [address] [facility] [place] [phone] Rayna, Lab [facility] [address] [facility] [place] [address] 07/19/2024 9:30 AM EST Hem/Onc Treatment Hematology/Oncology Treatment, [place] [address] [place] [phone] Rayna, Chair 8 Hem Onc [facility] [address] [place] [address] 08/02/2024 8:30 AM EST Office Visit Hematology/Oncology [facility] Rayna [place] [address] [place] [phone] Ama Barksdale CRNP [address] [place] [address] [place] [address] 08/05/2024 1:45 PM EST Telemedicine Genetics HemOnc, C [address] [place] [address] Sofia Eldridge, MS [address] [place] [address] Scheduled Procedures Name Priority Associated Diagnoses Date/Ti [...] this encounter Medical Devices Implanted Type Area Geometrician Device Identifier Shelf Expiration Date Model / Serial / Lot Mediport Power Mri 8fr [id number] - [id number] Implanted:Qty : 1 on 06/23/2024 by Rubén Hou MD at OR [facility] Right: Chest CR BARD : PERIPHERAL VASCULAR 06/19/2025 [id number] / / [id number] Port Implant W8f Poly Cath - [id number] Implanted:Qty : 1 on 06/23/2024 by Rubén Hou MD at OR [facility] CR BARD : PERIPHERAL VASCULAR [id number] 06/19/2025 [id number] / / [id number] documented as of this encounter Care Teams Mohs Surgeon/General Dermatologist Relationship Specialty Start Date End Date Gordon October Faye, EUGENIA [address] [facility] [place] [address] PCP - General Physician Child Development Consultant 05/10/24 documented as of this encounter
--- OUTSIDE RECORDS SUMMARY | 2024-10-09 06:35 | External Medical Summary | Summary of Care ---
Author Name Unknown Organization [facility] Address [address] [facility] [place] [address] Phone [phone] Care Team Providers Care Quality Assurance/R&D Lab Technician Name Role Phone Jewell Leyva EUGENIA Primary Care Provider Reason for Visit * Reason Onset Date Comments Referral 07/05/2024 Gregory Harrison Encounter Details Date Type Department Care Team (Late st Contact Info) Description 07/05/2024 Telephone Hematology/Oncology [facility] [place] [address] [place] [address] Celia Beard MD [address] [place] [phone] Referral (Gregory Harrison) Allergies Active Allergy Reactions Criticality Noted Date [...] 1 08/14/2023 Food insecurity 05/31/2024 Overview: Per [facility] Protocol ASCUS with positive high risk [...] encounter Miscellaneous Notes * Telephone Encounter - Khoi Ahmadi RN - 07/05/2024 2:10 PM EST Gregory Thorpeshira Fund application completed by this RN and given to patient at treatment today. She is aware that she will need to complete the rest of the application and submit it. documented in this encounter Plan of Treatment Upcoming Encounters Date Type Department Care Team (Late st Contact Info) Description 07/19/2024 8:30 AM EST Laboratory Laboratory [facility] [place] [address] [place] [address] Rayna, Lab [facility] [address] [place] [address] 07/19/2024 9:00 AM EST Office Visit Hematology/Oncology [facility] [place] [address] [place] [phone] Celia Beard MD [address] [place] [address] [place] [phone] 07/19/2024 9:30 AM EST Hem/Onc Treatment Hematology/Oncology Treatment, [place] [address] [place] [phone] Rayna, Chair 8 Hem Onc [place] [address] [place] [address] 09/16/2024 8:00 AM EST Telemedicine Genetics HemOnc, [facility] [address] [place] [address] Sofia Eldridge, MS [address] [place] [address] Scheduled Procedures Name Priority Associated Diagnoses Date/Ti [...] this encounter Medical Devices Implanted Type Area Certified Pedorthotist Device Identifier Shelf Expiration Date Model / Serial / Lot Mediport Power Mri 8fr [id number] - [id number] Implanted:Qty : 1 on 06/23/2024 by Rubén Hou MD at OR [facility] Right: Chest CR BARD : PERIPHERAL VASCULAR 06/19/2025 [id number] / / [id number] Port Implant W8f Poly Cath - [id number] Implanted:Qty : 1 on 06/23/2024 by Rubén Hou MD at OR [facility] CR BARD : PERIPHERAL VASCULAR [id number] 06/19/2025 [id number] / / [id number] documented as of this encounter Care Teams Quality Assurance/R&D Lab Technician Relationship Specialty Start Date End Date Codieoctober EUGENIA Mckinney [address] [place] [address] PCP - General Physician Bungy Jump Master 05/10/24 documented as of this encounter
--- OUTSIDE RECORDS SUMMARY | 2024-10-09 06:35 | External Medical Summary ---
Author Name Unknown Address Unknown Organization K09:[facility] [address] [address] Laboratory Report Ordering Provider Test Date Status GENE RUIZ 07/19/2024 08:32:28 Final Observation Date Value Abnormality Reference (Units ) Status Nucleated erythrocytes/100 leukocytes [Ratio] in Blood by Automated count 07/19/2024 08:32:28 Final Performing Location [facility] [place] [address]
--- OUTSIDE RECORDS SUMMARY | 2024-10-09 06:36 | External Medical Summary | Summary of Care ---
Author Name Unknown Organization [facility] Address [address] [facility] [place] [address] Phone [phone] Care Team Providers Care Privacy Officer Name Role Phone Jewell Leyva EUGENIA Primary Care Provider [phone] Reason for Visit * Reason Onset Date Comments Advice 06/28/2024 Encounter Details Date Type Department Care Team (Late st Contact Info) Description 06/28/2024 Telephone Hematology/Oncology [facility] [place] [address] [place] [facility] [place] [address] Sara Beard MD [address] [facility] [place] [phone] Advice Allergies Active Allergy Reactions Criticality Noted Date Comments Vancomycin Low 03/16/2022 documented as of this encounter (statuses as of 06/29/2024) Medications MULTIVITAMINS PO TABS one a day [...] as of this encounter (statuses as of 06/29/2024) Active Problems Problem Noted Date Diagnosed Date Malignant neoplasm of overla pping sites of left breast in female, estrogen receptor negative 06/14/2024 Encounter for antineoplastic chemotherapy 2023 Prevention of chemotherapy-induced neutropenia 1 08/14/2023 Food insecurity 05/31/2024 Overview: Per [facility] Protocol ASCUS with positive high risk HPV cervical 06/04 Major depressive disorder, r ecurrent severe without psychotic features 04/10/2023 Major depressive disorder, single episode, moder ate 06/07/2021 Encounter for other general counseling or advice on contraception 04/27/2010 Overview (04/20/2024): ICD-10 update of inactive term documented as of this encounter (statuses as of 06/29/2024) Resolved Problems Problem Noted Date Diagnosed Date Resolved Date Current mild episode of chente r depressive disorder without prior episode 08/19/2018 4 ABN PAP SMEAR-CERVIX 999 Encounter for supervision of other normal 05/28/2016 Overview (11/21/2015): ICD-10 update of inactive term documented as of this encounter (statuses as of 06/29/2024) Immunizations Name Administration Dates Next Due TD [...] Care Team (Late st Contact Info) Description 06/29/2024 3:45 PM EST Immunization/Injection Hematology/Oncology Treatment, [place] [address] [place] [phone] Rayna, Chair 7 Hem Onc [address] [place] [address] 07/02/2024 8:00 AM EST Imaging Radiology [facility] [address] [facility] [place] [address] 07/19/2024 8:30 AM EST Laboratory Laboratory [facility] [place] [address] [place] [phone] Rayna, Lab [facility] [address] [place] [address] 07/19/2024 9:00 AM EST Office Visit Hematology/Oncology [facility] [place] [address] [place] [phone] Sara Beard MD [address] [place] [address] [place] [address] 07/19/2024 9:30 AM EST Hem/Onc Treatment Hematology/Oncology Treatment, [place] [address] [place] [address] Rayna, Chair 8 Hem Onc [place]enery [address] [place] [address] 09/16/2024 8:00 AM EST Telemedicine Genetics HemOnc, [facility] [address] [place] [address] Sofia Eldridge, MS [address] [place] [address] Scheduled Procedures Name Priority Associated Diagnoses Date/Ti [...] 07/23, 12/21/2015, Additional history exists Diabetes Screening 06/28/2027 06/28/2024, 1 08/14/2023, 04/10/2023, Additional history exists Cervical Cancer Screening 06/04/2028 [...] this encounter Medical Devices Implanted Type Area Jd Edwards Consultant Device Identifier Shelf Expiration Date Model / Serial / Lot Mediport Power Mri 8fr [id number] - [id number] Implanted:Qty : 1 on 06/23/2024 by Rubén Hou MD at OR [facility] Right: Chest CR BARD : PERIPHERAL VASCULAR 06/19/2025 [id number] / / [id number] Port Implant W8f Poly Cath - [id number] Implanted:Qty : 1 on 06/23/2024 by Rubén Hou MD at OR [facility] CR BARD : PERIPHERAL VASCULAR [id number] 06/19/2025 [id number] / / [id number] documented as of this encounter Visit Diagnoses Diagnosis Malignant neoplasm of overlapping sites of left breast in female, estrogen receptor negative (HCC)- Primary documented in this encounter Care Teams Privacy Officer Relationship Specialty Start Date End Date Gordon Jewell EUGENIA Mckinney [address] [facility] [place] [address] PCP - General Physician Cloth Finishing Range Operator 05/10/24 documented as of this encounter
--- OUTSIDE RECORDS SUMMARY | 2024-10-09 06:36 | External Medical Summary | Summary of Care ---
Author Name Unknown Organization [facility] Address [address] [facility] [place] [address] Phone [phone] Care Team Providers Care Ham Pumper Name Role Phone Jewell Leyva EUGENIA Primary Care Provider [phone] Reason for Visit * Reason Onset Date Comments Advice 06/28/2024 Encounter Details Date Type Department Care Team (Late st Contact Info) Description 06/28/2024 Telephone Hematology/Oncology [facility] [place] [address] [place] [address] Sara Beard MD [address] [facility] [place] [phone] Advice Allergies Active Allergy Reactions Criticality Noted [...] 1 08/14/2023 Food insecurity 05/31/2024 Overview: Per [facility] Protocol ASCUS with positive high risk [...] 06/29/2024 3:45 PM EST Immunization/Injection Hematology/Oncology Treatment, [place] 200 [facility] [place] [address] Rayna, Chair 7 Hem Onc [address] [place] [address] 07/02/2024 8:00 AM EST Imaging Radiology [facility] 132 [facility] [place] [address] 07/19/2024 8:30 AM EST Laboratory Laboratory [facility] [address] [place] [phone] Rayna Lab Scenery 200 [facility] [place] [address] 07/19/2024 9:00 AM EST Office Visit Hematology/Oncology [facility] [place] [address] [place] [phone] Sara Beard MD [address] [place] [address] [place] [phone] 07/19/2024 9:30 AM EST Hem/Onc Treatment Hematology/Oncology Treatment, [place] [address] [place] [phone] Rayna, Chair 8 Hem Onc [address] [place] [address] 09/16/2024 8:00 AM EST Telemedicine Genetics HemOn, [place] [address] [place] [address] Sofia Eldridge, [place] [address] [facility] [address] Scheduled Procedures Name Priority Associated Diagnoses Date/Ti [...] this encounter Medical Devices Implanted Type Area Oxidized Finish Plater Device Identifier Shelf Expiration Date Model / Serial / Lot Mediport Power Mri 8fr [id number] - [id number] Implanted:Qty : 1 on 06/23/2024 by Rubén Hou MD at OR [facility] Right: Chest CR BARD : PERIPHERAL VASCULAR 06/19/2025 [id number] / / [id number] Port Implant W8f Poly Cath - [id number] Implanted:Qty : 1 on 06/23/2024 by Rubén Hou MD at OR [facility] CR BARD : PERIPHERAL VASCULAR [id number] 06/19/2025 [id number] / / [id number] documented as of this encounter Visit Diagnoses Diagnosis Malignant neoplasm of overlapping sites of left breast in female, estrogen receptor negative (HCC)- Primary documented in this encounter Care Teams Ham Pumper Relationship Specialty Start Date End Date Gordon Jewell EUGENIA Mckinney [address] [facility] [place] [address] PCP - General Physician Willow Analyst 05/10/24 documented as of this encounter
--- OUTSIDE RECORDS SUMMARY | 2024-10-09 06:36 | External Medical Summary ---
Author Name Unknown Address Unknown Organization K09[facility] [place] [address] Laboratory Report Ordering Provider Test Date Status GENE RUIZ 07/05/2024 12:42:12 Final Observation Date Value Abnormality Reference (Units ) Status WBC, Total 07/05/2024 12:42:12 11.52 Above high normal 4 .00-10.80 (K/uL) Final RBC 07/05/2024 12:42:12 4.63 3.85-5.15 (M/uL) Final Hemoglobin 07/05/2024 12:42:12 13.9 12.0-15.3 (g/dL) Final HCT 07/05/2024 12:42:12 42.3 36.0-45.2 (%) Final MCV 07/05/2024 12:42:12 91.4 81.5-97.5 (fL) Final MCH 07/05/2024 12:42:12 30.0 27.0-34.0 (pg) Final MCHC 07/05/2024 12:42:12 32.9 32.0-36.0 (g/dL) Final RDW 07/05/2024 12:42:12 13.0 11.5-15.5 (%) Final Platelets 07/05/2024 12:42:12 134 Below low normal 140 -400 (K/uL) Final MPV 07/05/2024 12:42:12 11.1 6.6-11.1 ( fL) Final Performing Location [facility] [place] [address]
--- OUTSIDE RECORDS SUMMARY | 2024-10-09 06:36 | External Medical Summary ---
Author Name Unknown Address Unknown Organization K09:[facility] [address] [place] [address] Laboratory Report Ordering Provider Test Date Status GENE RUIZ 07/05/2024 12:42:12 Final Observation Date Value Abnormality Reference (Units ) Status BUN 07/05/2024 12:42:12 13 6-20 (mg/dL) Final Creatinine 07/05/2024 12:42:12 0.8 0.5-1.0 (mg/dL) Final Glomerular filtration rate/1.73 sq M.predicted [Volume Rate/Area] in Serum, Plasma or Blood by Creatinine-based formula (CKD-EPI) 07/05/2024 12:42:12 90 >=60 (mL/min) Final eGFR is calculated based on the CKD-EPI 2020 equation. Sodium 07/05/2024 12:42:12 142 135-146 (m mol/L) Final Potassium 07/05/2024 12:42:12 4.6 3.5-5.1 (m mol/L) Final Cl 07/05/2024 12:42:12 102 98-107 (mm ol/L) Final CO2 07/05/2024 12:42:12 29 22-32 (mmo l/L) Final Anion gap 07/05/2024 12:42:12 11 7-15 (mmol /L) Final Glucose 07/05/2024 12:42:12 139 Above high normal 70 -120 (mg/dL) Final Albumin 07/05/2024 12:42:12 4.0 3.8-5.0 (g /dL) Final AST (Aspartate aminotransferase) 07/05/2024 12:42:12 24 10-35 (U/L) Fin al Alk Phos 07/05/2024 12:42:12 148 Above high normal 35 -130 (U/L) Final Bilirubin, Total 07/05/2024 12:42:12 0.3 <=1 .2 (mg/dL) Final Calcium 07/05/2024 12:42:12 9.4 8.4-10.2 ( mg/dL) Final Protein 07/05/2024 12:42:12 6.5 6.0-8.3 (g /dL) Final ALT (Alanine aminotransferase) 07/05/2024 12:42:12 44 Above high normal 10-35 (U/L) Final Performing Location [facility] [address] [place] [address]
--- OUTSIDE RECORDS SUMMARY | 2024-10-09 06:36 | External Medical Summary ---
Author Name Unknown Address Unknown Organization K09:[facility] [address] [place] [address] Laboratory Report Ordering Provider Test Date Status GENE RUIZ 07/05/2024 12:42:12 Final Observation Date Value Abnormality Reference (Units ) Status SYNC LEUKOCYTES IN BLOOD BY AUTOMATED COUNT 07/05/2024 12:42:12 11.52 Above high normal 4.00-10.80 (K/uL) Final Neutrophils/100 leukocytes in Blood by Manual count 07/05/2024 12:42:12 55.0 40.0-75.0 (%) Final Lymphocytes/100 leukocytes in Blood by Manual count 07/05/2024 12:42:12 26.0 18.0-42.0 (%) Final Monocytes/100 leukocytes in Blood by Manual count 07/05/2024 12:42:12 11.0 1.0-11.0 (%) Final Eosinophils/100 leukocytes in Blood by Manual count 07/05/2024 12:42:12 5.0 0.0-6.0 (%) Final Metamyelocytes/100 leukocytes in Blood by Manual count 07/05/2024 12:42:12 3.0 Above high normal <=0.0 (%) Final Neutrophils [#/volume] in Blood by Manual count 07/05/2024 12:42:12 6.34 1.80-7.70 (K/uL) Final Lymphocytes [#/volume] in Blood by Manual count 07/05/2024 12:42:12 3.00 1.00-4.80 (K/uL) Final Monocytes [#/volume] in Blood by Manual count 07/05/2024 12:42:12 1.27 Above high normal 0.00-1.10 (K/uL) Final Eosinophils [#/volume] in Blood by Manual count 07/05/2024 12:42:12 0.58 0.00-0.70 (K/uL) Final Metamyelocytes [#/volume] in Blood by Manual count 07/05/2024 12:42:12 0.35 Above high normal <=0.00 (K/uL) Final Nucleated erythrocytes/100 leukocytes [Ratio] in Blood by Automated count 07/05/2024 12:42:12 1 Above high normal <=0 (/100 WBCs) Final Variant lymphocytes [Presence] in Blood by Light microscopy 07/05/2024 12:42:12 Present Abnormal None Seen Final Performing Location [facility] [address] [place] [address]
--- OUTSIDE RECORDS SUMMARY | 2024-10-09 06:36 | External Medical Summary | Summary of Care ---
Author Name Unknown Organization [facility] Address [address] [facility] [place] [address] Phone [phone] Care Team Providers Care Dust Mill Operator Name Role Phone Jewell Leyva EUGENIA Primary Care Provider [phone] Reason for Visit * Reason Onset Date Comments Advice 06/28/2024 Encounter Details Date Type Department Care Team (Late st Contact Info) Description 06/28/2024 Telephone Hematology/Oncology [facility] [place] [address] [facility] [place] [address] Sara Beard [facility] [address] [facility] [place] [phone] Advice Allergies Active Allergy Reactions Criticality Noted [...] 1 08/14/2023 Food insecurity 05/31/2024 Overview: Per [facility] Protocol ASCUS with positive high risk [...] 06/29/2024 3:45 PM EST Immunization/Injection Hematology/Oncology Treatment, [place] [address] [place] [address] Rayna, Chair 7 Hem Onc [facility] 200 [facility] [place] [address] 07/02/2024 8:00 AM EST Imaging Radiology [facility] [address] [facility] [place] [address] 07/19/2024 8:30 AM EST Laboratory Laboratory [facility] [place] [address] [place] [phone] Rayna, Lab [address] [facility] [place] [address] 07/19/2024 9:00 AM EST Office Visit Hematology/Oncology [facility] [place] [address] [place] [phone] Sara Beard MD [address] [place] [address] [place] [phone] 07/19/2024 9:30 AM EST Hem[facility] [address] [place] [phone] Rayna, Chair 8 Hem Onc [facility] 200 [place] [address] 09/16/2024 8:00 AM EST Telemedicine Genetics HemOnc, [place] [address] Sofia [place], [place] 132 [facility] [place] [address] Scheduled Procedures Name Priority Associated Diagnoses Date/Ti [...] encounter Medical Devices Implanted Type Area Web Search Evaluator Device Identifier Shelf Expiration Date Model / Serial / Lot Mediport Power Mri 8fr [id number] - [id number] Implanted:Qty : 1 on 06/23/2024 by Rubén Hou MD at OR [facility] Right: Chest CR BARD : PERIPHERAL VASCULAR 06/19/2025 [id number] / / [id number] Port Implant W8f Poly Cath - [id number] Implanted:Qty : 1 on 06/23/2024 by Rubén Hou MD at OR [facility] CR BARD : PERIPHERAL VASCULAR [id number] 06/19/2025 [id number] / / [id number] documented as of this encounter Visit Diagnoses Diagnosis Malignant neoplasm of overlapping sites of left breast in female, estrogen receptor negative (HCC)- Primary documented in this encounter Care Teams Dust Mill Operator Relationship Specialty Start Date End Date Jewell Leyva PA-C [facility] [address] [place] [place] [address] PCP - General Physician Optical Laboratory Manager 05/10/24 documented as of this encounter
--- OUTSIDE RECORDS SUMMARY | 2024-10-09 06:36 | External Medical Summary | Summary of Care ---
Author Name Unknown Organization [facility] Address [address] [facility] [place] [address] Phone [phone] Care Team Providers Care Carpet Finishing Supervisor Name Role Phone Jewell Leyva EUGENIA Primary Care Provider [phone] Encounter Details Date Type Department Care Team (Late st Contact Info) Description 07/05/2024 Orders Only Hematology/Oncology [facility] [address] [place] 200 [facility] [phone] Celia Beard MD 400 [facility] [place] [phone] Allergies Active Allergy Reactions Criticality Noted Date [...] 1 08/14/2023 Food insecurity 05/31/2024 Overview: Per [facility] Protocol ASCUS with positive high risk [...] Description 07/19/2024 8:30 AM EST Laboratory Laboratory [facility] 200 [facility] [phone] Rayna Lab [address] [place] [address] 07/19/2024 9:00 AM EST Office Visit Hematology/Oncology [facility] 200 [facility] [place] [address] Celia Beard MD [address] [place] [address] [place] [phone] 07/19/2024 9:30 AM EST Hem[facility] [address] [facility] [address] [address] [place] [address] Rayna Chair 8 Hem Onc [address] [place] [address] 09/16/2024 8:00 AM EST Telemedicine Genetics HemOnc, [facility] 100 [place] [address] Sofia Eldridge, MS [address] [place] [address] Scheduled Procedures Name Priority Associated Diagnoses Date/Ti [...] this encounter Medical Devices Implanted Type Area Carport Erector Device Identifier Shelf Expiration Date Model / Serial / Lot Mediport Power Mri 8fr [id number] - [id number] Implanted:Qty : 1 on 06/23/2024 by Rubén Hou MD at OR [facility] Right: Chest CR BARD : PERIPHERAL VASCULAR 06/19/2025 [id number] / / [id number] Port Implant W8f Poly Cath - [id number] Implanted:Qty : 1 on 06/23/2024 by Rubén Hou MD at OR [facility] BARD : PERIPHERAL VASCULAR [id number] 06/19/2025 [id number] / / [id number] documented as of this encounter Care Teams Carpet Finishing Supervisor Relationship Specialty Start Date End Date Jewell Leyva, PAMarielaC [address] [place] [address] PCP - General Physician Administrative Resident 05/10/24 documented as of this encounter
--- OUTSIDE RECORDS SUMMARY | 2024-10-09 06:36 | External Medical Summary | Summary of Care ---
Author Name Unknown Organization [facility] Address [address] [facility] [place] [address] Phone [phone] Care Team Providers Care Metal Filer Name Role Phone Gordon Jewell Faye EUGENIA Primary Care Provider [phone] Reason for Visit * Reason Comments Follow Up Office Procedure Pt presents for offi ce procedure, wanting to discuss some things prior to procedure. Encounter Details Date Type Department Care Team (Late st Contact Info) Description 06/22/2024 8:00 AM EST Office Visit General Surgery, [facility] [address] [place] [address] Fawn Lindsay MD [address] [place] [address] Malignant neoplasm of upper-inner quadrant of left breast in female, estrogen receptor negative (HCC)*; Axillary adenopathy Allergies Active Allergy Reactions Criticality Noted Date [...] Moderate or Pain, Severe. 90 Tablet 06/14/20 024 Discontin ued(Refil l) Hospital, Clinic, or Other Facility Administered Medication Ordered Dose Route Frequency Start Date End Date Status lidocaine-epinephrine 2 %-1:202104 inj 200 mgIndications:Malignant neoplasm of upper-inner quadrant of left breast in female, estrogen receptor negative (HCC) 200 mg SC ONCE 06/22/2024 06/22/2024 Ended documented as of this encounter (statuses as of 06/29/2024) Active Problems Problem Noted Date Diagnosed Date Malignant neoplasm of overla pping sites of left breast in female, estrogen receptor negative 06/14/2024 Encounter for antineoplastic chemotherapy 2023 Prevention of chemotherapy-induced neutropenia 1 08/14/2023 Food insecurity 05/31/2024 Overview: Per [facility] Protocol ASCUS with positive high risk [...] on file documented as of this encounter Progress Notes * Fawn Lindsay MD - 06/22/2024 9:41 AM EST Operative note: Indications:Left breast cancer upper inner with skin thickening Procedure: left breast skin punch biopsy - 5 mm Anesthesia: local (10 cc 2% lidocaine with epi) Specimens:left breast skin biopsy Surgeon: Fawn Lindsay Complications: none Procedure: The left breast was prepped with betadine and draped. The area of the mass was anesthetized with 2% lidocaine with epinephrine.A 5 mm punch biopsy was performed. Clear fluid was noted to drain from the wound. The wound was closed with interrupted 4-0 nylon sutures. A sterile dressing wasapplied. The patient tolerated the procedure well and was discharged home in stable condition. Of note, discussion was also had with Radha and her about pathology and findings. Currently, pet/ ct shows no evidence of distant metastases. Does have suspicious axillary and internal mammary nodes. Will order US biopsy and avery corporate strategist placement into left axillary node. Will need post mastectomy radiation for internal mammary node. Plan for chemo upfront - rationale discussed with both. Will need left mastectomy given multiple satellite lesions on MRI. Skin biopsy done today will determine if reconstruction is an option at time of mastectomy or if she will need delayed reconstruction. Genetic testing to be done in Feb. documented in this encounter Nursing Notes * Erika Araujo LPN - 06/22/2024 8:06 AM EST Patient identified by name and date of . Chief Complaint Patient presents with Follow Up Office Procedure Pt presents for office procedure, wanting to discuss some things prior to procedure. documented in this encounter Miscellaneous Notes * Addendum Note - Khoi Ahmadi RN - 06/29/2024 3:33 PM ESTAddended by: KHOI AHMADI on: 06/29/2024 03:33 PM Modules accepted: Orders documented in this encounter Plan of Treatment Upcoming Encounters Date Type Department Care Team (Late st Contact Info) Description 06/29/2024 3:45 PM EST Immunization/Injection Hematology/Oncology Treatment, [place] [address] [place] [phone] Rayna, Chair 7 Hem Onc [address] [place] [address] 07/02/2024 8:00 AM EST Imaging Radiology [facility] 132 [place] [address] 07/19/2024 8:30 AM EST Laboratory Laboratory [facility] [address] [place] [phone] [place] [facility] 200 [facility] [place] [address] 07/19/2024 9:00 AM EST Office Visit Hematology/Oncology [facility] [address] [place] [phone] Celia Beard MD [address] [place] [address] [place] [address] 07/19/2024 9:30 AM EST Hem/Onc Treatment Hematology/Oncology Treatment, [place] [address] [place] [address] Rayna, Chair 8 Hem Onc [place] [address] [place] [address] 09/16/2024 8:00 AM EST Telemedicine Genetics HemOnc, [facility] [place] [place] [address] [place] [address] Sofia [place], MS [address] [place] [address] Scheduled Procedures Name Priority Associated Diagnoses Date/Ti [...] this encounter Medical Devices Implanted Type Area Tool Straightener Device Identifier Shelf Expiration Date Model / Serial / Lot Mediport Power Mri 8fr [id number] - [id number] Implanted:Qty : 1 on 06/23/2024 by Rubén Hou MD at OR [facility] Right: Chest CR BARD : PERIPHERAL VASCULAR 06/19/2025 [id number] / / [id number] Port Implant W8f Poly Cath - [id number] Implanted:Qty : 1 on 06/23/2024 by Rubén Hou MD at OR [facility] CR BARD : PERIPHERAL VASCULAR [id number] 06/19/2025 [id number] / / [id number] documented as of this encounter Procedures Procedure Name Priority Date/Time Associated Diagnosis Comments SURGICAL PATHOLOGY Routine 06/22/2024 11 :07 AM EST Malignant 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 Skin, Breast, Left, punch: Granulation tissue and granulomas with acute and chronic inflammation in deep dermis (see comment) No malignancy identified on this biopsy Comment: There are reactive and inflammatory changes present in the deep dermis extending to the deep edge of the punch biopsy, suggesting that this biopsy likely represents the superficial aspect of a deeper process. The superficial aspect of an infectious abscess or a ruptured cyst could have these findings. However, no cyst contents, epithelial cyst lining, or infectious organisms identified on this sample. No malignancy is identified on this sample. This sample may not be telephone claims representative of the entire process. If the process persists/progresse s, or if there is continued clinical or [...] important during microscopic evaluation of skin biopsies. 06/23/2024 4:05 PM EST LAB[facility]ATORY [facility] [place] [place] Clinical History left breast cancer with thickened skin 06/23/2024 4:05 PM EST LAB[facility]ORY [facility] [place] [place] Gross Description A. Breast, Left. Received in formalin with a container labeled with "Radha Fung", "[id number]", "1975" and " breast, left". Received is a skin punch biopsy measuring 0.5 x 0.4 cm. The skin surface is khan-white, smooth, dull, and slightly raised in appearance throughout. The underlying tissue is inked blue. The specimen is bisected, wrapped in lens paper and entirely submitted in cassette A1. Gross By: LANIE 06/23/2024 4:05 PM EST LAB[facility]ORY [facility] [place] [place] Microscopic Description There is granulation tissue with ill-defined granulomas intermingled with acute and chronic inflammation in the deep dermis of the deep aspect of the punch biopsy. No keratin debris or cyst epithelial lining is identified on examined sections. No bacteria are identified on Gram stain. No fungal organisms are identified on GMS-stained sections. No acid fast bacilli are identified on Aracely stain. No carcinoma is identified on H&E sections or on pancytokeratin immunostain. Multiple deeper sections were examined. No polarizable exogenous material is identified. 06/23/2024 4:05 PM EST [facility]ORY [facility] [place] [place] Sign Out Location Pathologist sign out performed at [facility] ([facility] [place] [place] [address]. 06/23/2024 4:05 PM [facility] LABORATORY [facility] [place] [place] Photographic images and diagrams represent olmos findings in this case; they are not intended to replace a complete review of the final diagnostic report. The following statement applies to Flow Cytometry, Histology, In situ Hybridization Assays and Molecular Genetics. This test was developed and performed at [facility] and its performance characteristics determined by [employer] It has not been cleared or approved by the U.S. Food and Drug Administration. The FDA has determined that such clearance or approval is not necessary. This test is used for clinical purposes. It should not be regarded as investigational or for research. Special stains, including histochemical stains, and studies using immunologic and RICHARD methodology (where applicable) are performed with appropriate positive and negative control reactions. 06/23/2024 4:05 PM EST LABORATORY [facility] [place] [place] Tissue Specimen from left breast / Unknown Non-blood Collection / Unknown 06/22/2024 11:07 AM EST 06/22/2024 11:07 AM EST us Fawn Lindsay MD LAB PATHOLOGY ORDERABLES Fi nal Result LAB[facility]ATORY [facility] [place] [place] [address] [place] [address] documented in this encounter Visit Diagnoses Diagnosis Malignant neoplasm of upper-inner quadrant of left breast in female, estrogen receptor negative (HCC)- Primary Axillary adenopathy Enlargement of lymph nodes documented in this encounter Administered Medications Inactive Administered Medications - up to 3 most recent administrations Medication Order MAR Action Action Date Dose Rate Site lidocaine-epinephrine 2 %-1:089396 inj 200 mg 200 mg (10 mL), Subcutaneous, ONCE, On Fri06/22/24 at 1015, For 1 doseIndications:Malignant neoplasm of upper-inner quadrant of left breast in female, estrogen receptor negative (HCC) Given 06/22/2024 11:08 AM EST 200 [address] east Left documented in this encounter Care Teams Metal Filer Relationship Specialty Start Date End Date Codieoctober EUGENIA Mckinney 200 [facility] [place] [address] PCP - General Physician Technical Support Assistant 05/10/24 documented as of this encounter
--- OUTSIDE RECORDS SUMMARY | 2024-10-09 06:36 | External Medical Summary | Summary of Care ---
Author Name Unknown Organization [facility] Address [address] [facility] [place] [address] Phone [phone] Care Team Providers Care Projection Printer Name Role Phone Jewell Leyva EUGENIA Primary Care Provider [phone] Reason for Visit * Reason Onset Date Comments FYI 07/01/2024 US bx/Rena Encounter Details Date Type Department Care Team (Late st Contact Info) Description 07/01/2024 Telephone General Surgery, [facility] [address] [place] [address] Fawn Lindsay MD [address] [place] [address] FYI (US bx/Rena) Allergies Active Allergy Reactions Criticality Noted Date Comments Vancomycin Low 03/16/2022 documented as of this encounter (statuses as of 07/02/2024) Medications MULTIVITAMINS PO TABS one a day [...] as of this encounter (statuses as of 07/02/2024) Active Problems Problem Noted Date Diagnosed Date Malignant neoplasm of overla pping sites of left breast in female, estrogen receptor negative 06/14/2024 Encounter for antineoplastic chemotherapy 2023 Prevention of chemotherapy-induced neutropenia 1 08/14/2023 Food insecurity 05/31/2024 Overview: Per [facility] Protocol ASCUS with positive high risk HPV cervical 06/04 Major depressive disorder, r ecurrent severe without psychotic features 04/10/2023 Major depressive disorder, single episode, moder ate 06/07/2021 Encounter for other general counseling or advice on contraception 04/27/2010 Overview (04/20/2024): ICD-10 update of inactive term documented as of this encounter (statuses as of 07/02/2024) Resolved Problems Problem Noted Date Diagnosed Date Resolved Date Current mild episode of chente r depressive disorder without prior episode 08/19/2018 4 ABN PAP SMEAR-CERVIX 999 Encounter for supervision of other normal 05/28/2016 Overview (11/21/2015): ICD-10 update of inactive term documented as of this encounter (statuses as of 07/02/2024) Immunizations Name Administration Dates Next Due TD [...] No 05/17/2024 Are you (or your family) tiot eless or worried that you might be [...] encounter Miscellaneous Notes * Telephone Encounter - Nadege Overton OSA - 07/01/2024 2:54 PM EST FYI, per 06/28 TE, 07/02 ultrasound guided biopsy and Rena placement of left breast has been cancelled. Gen Surg, please let us know when patient is ready to reschedule. Thank you documented in this encounter Plan of Treatment Upcoming Encounters Date Type Department Care Team (Late st Contact Info) Description 07/19/2024 8:30 AM EST Laboratory Laboratory [facility] [place] [address] [place] [phone] Rayna, Lab [address] [place] [address] 07/19/2024 9:00 AM EST Office Visit Hematology/Oncology [facility] [place] [address] [place] [phone] Celia Beard MD [address] [place] [address] [place] [phone] 07/19/2024 9:30 AM EST Hem/Onc Treatment Hematology/Oncology Treatment, [place] [address] [place] [phone] Rayna, Chair 8 Hem Onc [place] [address] [place] [address] 09/16/2024 8:00 AM EST [facility] [address] [place] [address] Sofia [place], MS [address] [place] [address] Scheduled Procedures Name Priority Associated Diagnoses Date/Ti [...] this encounter Medical Devices Implanted Type Area Cleat Feeder Device Identifier Shelf Expiration Date Model / Serial / Lot Mediport Power Mri 8fr [id number] - [id number] Implanted:Qty : 1 on 06/23/2024 by Rubén Hou MD at OR [facility] Right: Chest CR BARD : PERIPHERAL VASCULAR 06/19/2025 [id number] / / [id number] Port Implant W8f Poly Cath - [id number] Implanted:Qty : 1 on 06/23/2024 by Rubén Hou MD at OR [facility] CR BARD : PERIPHERAL VASCULAR [id number] 06/19/2025 [id number] / / [id number] documented as of this encounter Care Teams Projection Printer Relationship Specialty Start Date End Date Gordon October EUGENIA Mckinney 200 [facility] [place] [address] PCP - General Physician Research Associate Professor 05/10/24 documented as of this encounter
--- OUTSIDE RECORDS SUMMARY | 2024-10-09 06:36 | External Medical Summary | Summary of Care ---
Author Name Unknown Organization [facility] Address [address] [facility] [address] Phone [phone] Care Team Providers Care Mold Machine Operator Name Role Phone Jewell Leyva EUGENIA Primary Care Provider [phone] Encounter Details Date Type Department Care Team (Late st Contact Info) Description 07/05/2024 Orders Only Hematology/Oncology [facility] [place] 200 [facility] [place] [phone] Ama Barksdale CRNP [facility] [address] Dehydration* Allergies Active Allergy Reactions Criticality Noted Date [...] 1 08/14/2023 Food insecurity 05/31/2024 Overview: Per [facility] Protocol ASCUS with positive high risk [...] Description 07/19/2024 8:30 AM EST Laboratory Laboratory [facility] 200 [facility] [place] [phone] [place] [address] 07/19/2024 9:00 AM EST Office Visit Hematology/Oncology [facility] 200 [facility] [place] [address] Celia Beard MD [address] [place], [place] [address] [address] 07/19/2024 9:30 AM EST Hem[facility] [address] Rayna, Chair 8 Hem Onc [address] [place] [address] 09/16/2024 8:00 AM EST Telemedicine Genetics HemOnc, [facility] [address] [place] [address] Sofia Eldridge, MS 132 [facility] [place] [address] Scheduled Procedures Name Priority Associated Diagnoses Date/Ti [...] this encounter Medical Devices Implanted Type Area Central Processing Tech Device Identifier Shelf Expiration Date Model / Serial / Lot Mediport Power Mri 8fr [id number] - [id number] Implanted:Qty : 1 on 06/23/2024 by Rubén Hou MD at OR [facility] Right: Chest CR BARD : PERIPHERAL VASCULAR 06/19/2025 [id number] / / [id number] Port Implant W8f Poly Cath - [id number] Implanted:Qty : 1 on 06/23/2024 by Rubén Hou MD at OR [facility] BARD : PERIPHERAL VASCULAR [id number] 06/19/2025 [id number] / / [id number] documented as of this encounter Visit Diagnoses Diagnosis Dehydration- Primary documented in this encounter Care Teams Mold Machine Operator Relationship Specialty Start Date End Date Gordon October Faye, EUGENIA 200 [facility] [place] [address] PCP - General Physician Drafter Engineering 05/10/24 documented as of this encounter
--- OUTSIDE RECORDS SUMMARY | 2024-10-09 06:36 | External Medical Summary | Summary of Care ---
Author Name Unknown Organization [facility] Address [address] [facility] [place] [address] Phone [phone] Care Team Providers Care Healthcare Management Name Role Phone Jewell Leyva EUGENIA Primary Care Provider [phone] Reason for Visit * Reason Onset Date Comments Advice 06/28/2024 Encounter Details Date Type Department Care Team (Late st Contact Info) Description 06/28/2024 Telephone Hematology/Oncology [facility] [place] [address] [facility] [place] [address] Sara [facility] MD 400 [facility] [place] [phone] Advice Allergies Active Allergy Reactions Criticality Noted [...] 1 08/14/2023 Food insecurity 05/31/2024 Overview: Per [facility] Protocol ASCUS with positive high [...] 06/29/2024 3:45 PM EST Immunization/Injection Hematology/Oncology Treatment, [place] 200 [facility] [place] [address] Rayna, Chair 7 Hem Onc [address] [place] [address] 07/02/2024 8:00 AM EST Imaging Radiology [facility] 132 [facility] [place] [address] 07/19/2024 8:30 AM EST Laboratory Laboratory [facility] [address] [place] [phone] Rayna Lab Scenery 200 [facility] [place] [address] 07/19/2024 9:00 AM EST Office Visit Hematology/Oncology [facility] [place] [address] [place] [phone] Sara Beard MD [address] [place] [address] [place] [phone] 07/19/2024 9:30 AM EST Hem/Onc Treatment Hematology/Oncology Treatment, [place] [address] [place] [phone] Rayna, Chair 8 Hem Onc [place] [address] [place] [address] 09/16/2024 8:00 AM EST Telemedicine Genetics HemOn, [place] [address] [place] [address] Sofia Eldridge, MS 132 [facility] [address] Scheduled Procedures Name Priority Associated Diagnoses Date/Ti [...] this encounter Medical Devices Implanted Type Area Photoengraving Etcher Device Identifier Shelf Expiration Date Model / Serial / Lot Mediport Power Mri 8fr [id number] - [id number] Implanted:Qty : 1 on 06/23/2024 by Rubén Hou MD at OR [facility] Right: Chest CR BARD : PERIPHERAL VASCULAR 06/19/2025 [id number] / / [id number] Port Implant W8f Poly Cath - [id number] Implanted:Qty : 1 on 06/23/2024 by Rubén Hou MD at OR [facility] CR BARD : PERIPHERAL VASCULAR [id number] 06/19/2025 [id number] / / [id number] documented as of this encounter Visit Diagnoses Diagnosis Malignant neoplasm of overlapping sites of left breast in female, estrogen receptor negative (HCC)- Primary documented in this encounter Care Teams Healthcare Management Relationship Specialty Start Date End Date Gordon Jewell EUGENIA Mckinney [address] [facility] [place] [address] PCP - General Physician Molded Grid And Parts Inspector 05/10/24 documented as of this encounter
--- OUTSIDE RECORDS SUMMARY | 2024-10-09 06:36 | External Medical Summary | Summary of Care ---
Author Name Unknown Organization [facility] [address] [facility] [place] [address] Phone [phone] Care Team Providers Care Senior Project Engineer Name Role Phone Jewell Leyva EUGENIA Primary Care Provider [phone] Reason for Visit * Reason Onset Date Comments Advice 06/28/2024 Encounter Details Date Type Department Care Team (Late st Contact Info) Description 06/28/2024 Telephone Hematology/Oncology [facility] [place] [address] [facility] [place] [address] Sara Mills MD 400 [facility] [place] [phone] Advice Allergies Active Allergy Reactions Criticality Noted [...] 1 08/14/2023 Food insecurity 05/31/2024 Overview: Per [facility] Protocol ASCUS with positive high risk [...] RN - 06/29/2024 9:[address] Mills- please advise, is biopsy on Friday to [...] for 3 days after chemotherapy).Authorizing Provider: SARA MILLS * Telephone Encounter - Khoi Ahmadi RN [...] RN - 06/28/2024 1:[address] Mills - You instructed patient to take Decadron [...] 06/29/2024 3:45 PM EST Immunization/Injection Hematology/Oncology Treatment, [address] [place] [phone] Rayna, Chair 7 Hem Onc [address] [place] [address] 07/02/2024 8:00 AM EST Imaging Radiology [facility] 132 [facility] [place] [address] 07/19/2024 8:30 AM EST Laboratory Laboratory [facility] 200 [facility] [place] [address] Rayna, Lab [facility] 200 [facility] [place] [address] 07/19/2024 9:00 AM EST Office Visit Hematology/Oncology [facility] [address] [place] [address] Sara Mills MD [address] [place] [address] [place] [phone] 07/19/2024 9:30 AM EST Hem[facility]Onc [facility] 200 [facility] [phone] Rayna, Chair 8 Hem Onc [place] [address] [place] [address] 09/16/2024 8:00 AM EST Telemedicine Genetics HemOnc, [facility] [address] [place] [address] Sofia Eldridge, MS 132 [address] [facility] [address] Scheduled Procedures Name Priority Associated Diagnoses Date/Ti [...] this encounter Medical Devices Implanted Type Area Bath Solution Maker Device Identifier Shelf Expiration Date Model / Serial / Lot Mediport Power Mri 8fr [id number] - [id number] Implanted:Qty : 1 on 06/23/2024 by Rubén Hou MD at OR [facility] Right: Chest CR BARD : PERIPHERAL VASCULAR 06/19/2025 [id number] / / [id number] Port Implant W8f Poly Cath - [id number] Implanted:Qty : 1 on 06/23/2024 by Rubén Hou MD at OR [facility] CR BARD : PERIPHERAL VASCULAR [id number] 06/19/2025 [id number] / / [id number] documented as of this encounter Visit Diagnoses Diagnosis Malignant neoplasm of overlapping sites of left breast in female, estrogen receptor negative (HCC)- Primary documented in this encounter Care Teams Senior Project Engineer Relationship Specialty Start Date End Date Gordon Jewell EUGENIA Mckinney [address] [place] [address] PCP - General Physician Cripple Cutter 05/10/24 documented as of this encounter
--- OUTSIDE RECORDS SUMMARY | 2024-10-09 06:36 | External Medical Summary | Summary of Care ---
Author Name Unknown Organization [facility] Address [address] [facility] [address] Phone [phone] Care Team Providers Care Underwater Hunter Name Role Phone Codieritu Jewell Mckinney PA-C Primary Care Provider [phone] Reason for Visit * Reason Comments Medication Administration Fulphila * Episode Based Medications (Routine) - Authorized Specialty Diagnoses / Procedures Referred By Jacobo lo Referred To Contact Diagnoses Malignant neoplasm of overlapping sites of left breast in female, estrogen receptor negative (HCC) Encounter for antineoplastic chemotherapy Prevention of chemotherapy-induced neutropenia Procedures FL DOXORUBIC HCL 10 MG VL CHEMO FL CARBOPLATIN INJECTION FL FOSAPREPITANT INJECTION FL INJ PEMBROLIZUMAB FL INJECTION, FULPHILA FL INJ, FILGRASTIM G-CSF 1MCG FL PACLITAXEL INJECTION FL INJ CYCLOPHOSPHAMD ARMINOMEDCelia Munroe MD [address] [place] [address] [place] [phone] Phone: tel: fax: Hematology/Oncology Treatment, [place] [address] [place] [address] Phone: tel: fax: Referral ID Status Reason Start Date Expiration Date V isits Requested Visits Authorized [id number] Authorized 06/15/2024 09/15/[phone] Encounter Details Date Type Department Care Team (Latest Contact Info) Description 06/29/2024 3:45 PM EST Immunization/ Injection Hematology/Oncology Treatment, [place] [address] [place] [phone] Rayna, Chair 7 Hem Onc [place] [address] [place] [address] Malignant neoplasm of overlapping sites of left [...] No 05/17/2024 Does the household have a [facility] hospitall[facility] source of income? (Household - for [...] Care Team (Late st Contact Info) Description 07/02/2024 8:00 AM EST Imaging Radiology [facility] [address] [place] [address] 07/19/2024 8:30 AM EST Laboratory Laboratory [facility] [place] [address] [place] [phone] Rayna, Lab [place] [address] [facility] [place] [address] 07/19/2024 9:00 AM EST Office Visit Hematology/Oncology [facility] [place] [address] [place] [phone] Celia Beard MD [address] [place] [address] [place] [phone] 07/19/2024 9:30 AM EST Hem/Onc Treatment Hematology/Oncology Treatment, [place] [address] [place] [phone] Rayna, Chair 8 Hem Onc Scenery 200 [facility] [place] [address] 09/16/2024 8:00 AM EST Telemedicine Genetics HemOnc, [address] [address] Sofia Eldridge, MS 132 [facility] [place] [address] Scheduled Procedures Name Priority Associated Diagnoses Date/Ti [...] this encounter Medical Devices Implanted Type Area Software Test Developer Device Identifier Shelf Expiration Date Model / Serial / Lot Mediport Power Mri 8fr [id number] - [id number] Implanted:Qty : 1 on 06/23/2024 by Rubén Hou MD at OR [facility] Right: Chest CR BARD : PERIPHERAL VASCULAR 06/19/2025 [id number] / / [id number] Port Implant W8f Poly Cath - [id number] Implanted:Qty : 1 on 06/23/2024 by Rubén Hou MD at OR [facility] CR BARD : PERIPHERAL VASCULAR [id number] 06/19/2025 [id number] / / [id number] documented as of this encounter Visit Diagnoses [...] Upper documented in this encounter Care Teams Underwater Hunter Relationship Specialty Start Date End Date Codieoctober Faye, SAPNAC [address] [place] [address] [place] [address] PCP - General Physician Mucker [place] 05/10/24 documented as of this encounter
--- OUTSIDE RECORDS SUMMARY | 2024-10-09 06:36 | External Medical Summary | Summary of Care ---
Author Name Unknown Organization [facility] Address [address] [place] [address] Phone [phone] Care Team Providers Care Wire Threader Name Role Phone Jewell Leyva EUGENIA Primary Care Provider [phone] Reason for Visit * Reason Comments Outpatient Testing Encounter Details Date Type Department Care Team (Late st Contact Info) Description 07/05/2024 12:40 PM EST Laboratory Laboratory [facility] [address] [place] [phone] [facility] Lab Scene [address] [place] [id number] Malignant neoplasm of overlapping sites of left [...] 1 08/14/2023 Food insecurity 05/31/2024 Overview: Per [facility] Protocol ASCUS with positive high risk [...] Team (Late st Contact Info) Description 07/05/2024 1:00 PM EST Hem[facility] [phone] Rayna, Chair 3 Hem Onc [address] [place] [address] Arrived 07/19/2024 8:30 AM EST Laboratory Laboratory [facility] [place] 200 [facility] [place] [address] Rayna, Lab [facility] 200 [address] [facility] [place] [address] 07/19/2024 9:00 AM EST Office Visit Hematology/Oncology [facility] [place] 200 [facility] [place] [phone] Celia Beard MD [address] [place] [address] [place] [phone] 07/19/2024 9:30 AM EST Hem/Onc Treatment Hematology/Oncology Treatment, [place] 200 [facility] [place] [address] Rayna, Chair 8 Hem Onc Scenery 200 [facility] [place] [address] 09/16/2024 8:00 AM EST Telemedicine Genetics HemOnc, [facility] [address] [place] [address] Sofia Eldridge, MS [address] [place] [address] Pending Results Name Type Priority Associated Diagnoses Date /Time CBC WITH WBC DIFFERENTIAL Lab STAT Malignant neoplasm of overlapping sites of left breast in female, estrogen receptor negative (HCC) 07/05/2024 12:42 PM EST COMPREHENSIVE METABOLIC PANEL Lab STAT Malignant neoplasm of overlapping sites of left breast in female, estrogen receptor negative (HCC) 07/05/2024 12:42 PM EST CBC Lab STAT Malignant neoplasm of overlapping sites of left breast in female, estrogen receptor negative (HCC) 07/05/2024 12:42 PM EST DIFFERENTIAL, AUTOMATED Lab STAT Malignant neoplasm of overlapping sites of left breast in female, estrogen receptor negative (HCC) 07/05/2024 12:42 PM EST Scheduled Procedures Name Priority Associated Diagnoses [...] this encounter Medical Devices Implanted Type Area Service Person Device Identifier Shelf Expiration Date Model / Serial / Lot Mediport Power Mri 8fr [id number] - [id number] Implanted:Qty : 1 on 06/23/2024 by Rubén Hou MD at OR [facility] Right: Chest CR BARD : PERIPHERAL VASCULAR 06/19/2025 [id number] / / [id number] Port Implant W8f Poly Cath - [id number] Implanted:Qty : 1 on 06/23/2024 by Rubén Hou MD at OR [facility] CR BARD : PERIPHERAL VASCULAR [id number] 06/19/2025 [id number] / / [id number] documented as of this encounter Visit Diagnoses Diagnosis Malignant neoplasm of overlapping sites of left breast in female, estrogen receptor negative (HCC) documented in this encounter Care Teams Wire Threader Relationship Specialty Start Date End Date Codieoctober EUGENIA Mckinney [address] [place] [id number] PCP - General Physician Head Inspector 05/10/24 documented as of this encounter
--- OUTSIDE RECORDS SUMMARY | 2024-10-09 06:36 | External Medical Summary | Summary of Care ---
Author Name Unknown Organization [facility] Address [address] [facility] [place] [address] Phone [phone] Care Team Providers Care Mortgage Loan Computation Clerk Name Role Phone Jewell Leyva EUGENIA Primary Care Provider [phone] Reason for Visit * Reason Onset Date Comments FYI 07/01/2024 US bx/Rena Encounter Details Date Type Department Care Team (Late st Contact Info) Description 07/01/2024 Telephone General Surgery, [facility] [address] [place] [address] Fawn Lindsay MD [address] [place] [address] FYI (US bx/Rena) Allergies Active Allergy Reactions Criticality Noted Date Comments Vancomycin Low 03/16/2022 documented as of this encounter (statuses as of 07/01/2024) Medications MULTIVITAMINS PO TABS one a day [...] as of this encounter (statuses as of 07/01/2024) Active Problems Problem Noted Date Diagnosed Date Malignant neoplasm of overla pping sites of left breast in female, estrogen receptor negative 06/14/2024 Encounter for antineoplastic chemotherapy 2023 Prevention of chemotherapy-induced neutropenia 1 08/14/2023 Food insecurity 05/31/2024 Overview: Per [facility] Protocol ASCUS with positive high risk HPV cervical 06/04 Major depressive disorder, r ecurrent severe without psychotic features 04/10/2023 Major depressive disorder, single episode, moder ate 06/07/2021 Encounter for other general counseling or advice on contraception 04/27/2010 Overview (04/20/2024): ICD-10 update of inactive term documented as of this encounter (statuses as of 07/01/2024) Resolved Problems Problem Noted Date Diagnosed Date Resolved Date Current mild episode of chente r depressive disorder without prior episode 08/19/2018 4 ABN PAP SMEAR-CERVIX 999 Encounter for supervision of other normal 05/28/2016 Overview (11/21/2015): ICD-10 update of inactive term documented as of this encounter (statuses as of 07/01/2024) Immunizations Name Administration Dates Next Due TD [...] Description 07/19/2024 8:30 AM EST Laboratory Laboratory [facility] [address] [place] [phone] Rayna, Lab [address] [place] [address] 07/19/2024 9:00 AM EST Office Visit Hematology/Oncology [facility] [address] [place] [phone] Celia Beard MD [address] [place] [address] [place] [phone] 07/19/2024 9:30 AM EST Hem/Onc Treatment Hematology/Oncology Treatment, [place] [address] [place] [phone] Rayna, Chair 8 Hem Onc [address] [place] [address] 09/16/2024 8:00 AM EST [facility]medicine [facility] [address] [place] [address] Sofia Eldridge, MS [address] [place] [address] Scheduled Procedures Name Priority Associated Diagnoses Date/Ti [...] this encounter Medical Devices Implanted Type Area Religion Teacher Device Identifier Shelf Expiration Date Model / Serial / Lot Mediport Power Mri 8fr [id number] - [id number] Implanted:Qty : 1 on 06/23/2024 by Rubén Hou MD at OR [facility] Right: Chest CR BARD : PERIPHERAL VASCULAR 06/19/2025 [id number] / / [id number] Port Implant W8f Poly Cath - [id number] Implanted:Qty : 1 on 06/23/2024 by Rubén Hou MD at OR [facility] CR BARD : PERIPHERAL VASCULAR [id number] 06/19/2025 [id number] / / [id number] documented as of this encounter Care Teams Mortgage Loan Computation Clerk Relationship Specialty Start Date End Date Gordon October EUGENIA Mckinney 200 [facility] [place] [address] PCP - General Physician Ribbon Sweatband Operator 05/10/24 documented as of this encounter
--- OUTSIDE RECORDS SUMMARY | 2024-10-09 06:36 | External Medical Summary ---
Author Name Unknown Address Unknown Organization K09:[facility] [place] [address] Laboratory Report Ordering Provider Test Date Status GENE RUIZ 07/05/2024 12:42:12 Final Observation Date Value Abnormality Reference (Units ) Status Magnesium 07/05/2024 12:42:12 1.7 1.5-2.6 (m g/dL) Final Performing Location [facility] [place] [address]
--- OUTSIDE RECORDS SUMMARY | 2024-10-09 06:37 | External Medical Summary | Summary of Care ---
Author Name Unknown Organization [facility] Address [address] [facility] [place] [address] Phone [phone] Care Team Providers Care Pot Fisher Name Role Phone Codieritu Jewell Zuniga PA-C Primary Care Provider [phone] Reason for Visit * Reason Comments Chemotherapy Keytruda, Taxol and Carbo * Episode Based Medications (Routine) - Authorized Specialty Diagnoses / Procedures Referred By Contyesica t Referred To Contact Diagnoses Malignant neoplasm of overlapping sites of left breast in female, estrogen receptor negative (HCC) Encounter for antineoplastic chemotherapy Prevention of chemotherapy-induced neutropenia Procedures NY DOXORUBIC HCL 10 MG VL CHEMO NY CARBOPLATIN INJECTION NY FOSAPREPITANT INJECTION [place] INJ PEMBROLIZUMAB [place] INJECTION, FULPHILA [place] INJ, FILGRASTIM G-CSF 1MCG NY PACLITAXEL INJECTION [place] INJ CYCLOPHOSPHAMD AUROMEDIC Celia Beard MD [address] [place] [address] [place] [address] Phone: tel: fax: Hematology/Oncology Treatment, [place] [address] [place] [address] Phone: tel: fax: Referral ID Status Reason Start Date Expiration Date V isits Requested Visits Authorized [id number] Authorized 06/15/2024 09/15/2024 999 [id number] Encounter Details Date Type Department Care Team (Latest Contact Info) Description 06/28/2024 10:30 AM EST Hem/Onc Treatment Hematology/Oncolog y Treatment, [place] [address] [place] [address] Malignant neoplasm of overlapping sites of left breast in female, estrogen receptor negative (HCC)*; Encounter for antineoplastic chemotherapy; Prevention of chemotherapy-induced neutropenia Allergies Active Allergy Reactions Criticality Noted Date Comments Vancomycin Low 03/16/2022 documented as of this encounter (statuses as of 06/28/2024) Medications MULTIVITAMINS PO TABS one a day [...] 1 Tablet before bedtime. 28 Tablet 06/14/20 024 Discontin ued(Refil l) oxyCODONE-Acetamin ophen 5-325 MG Oral Tablet (Percocet)Indicati ons:Malignant neoplasm of overlapping sites of left breast in female, estrogen receptor negative (HCC) Take 2 Tablets by mouth every 6 hours as needed for Pain, Mild, Pain, Moderate or Pain, Severe. 90 Tablet 06/14/20 24 024 Discontin ued(Refil l) documented as of this encounter (statuses as of 06/28/2024) Active Problems Problem Noted Date Diagnosed Date [...] as of this encounter (statuses as of 06/28/2024) Resolved Problems Problem Noted Date Diagnosed Date Resolved Date Current mild episode of chente r depressive disorder without prior episode 08/19/2018 4 ABN PAP SMEAR-CERVIX 999 Encounter for supervision of other normal 05/28/2016 Overview (11/21/2015): ICD-10 update of inactive term documented as of this encounter (statuses as of 06/28/2024) Immunizations Name Administration Dates Next Due TD [...] this encounter Nursing Notes * Kathya Otoole, SHY - 06/28/2024 3:51 PM EST Patient tolerated [...] Team (Late st Contact Info) Description 06/29/2024 8:45 AM EST Nurse Only General Surgery, [facility] [address] [facility] [place] [address] Nguyen, Nurse Gen Surg [email or web address] [address] [facility] [place] [address] 06/29/2024 3:45 PM EST Immunization/Injection Hematology/Oncology Treatment, [place] [address] [place] [phone] Rayna, Chair 7 Hem Onc Scene 200 [facility] [place] [address] 07/02/2024 8:00 AM EST Imaging Radiology [facility] 132 [facility] [place] [address] 07/19/2024 8:30 AM EST Laboratory Laboratory [facility] [place] 200 [facility] [place] [phone] Rayna, Lab [facility] 200 [facility] [place] [address] 07/19/2024 9:00 AM EST Office Visit Hematology/Oncology [facility] [place] [address] [place] [phone] Celia Beard MD [address] [place], [place] [address] [address] 07/19/2024 9:30 AM EST Hem/Onc Treatment Hematology/Oncology Treatment, [place] [address] [facility] [place], [place] [phone] Rayna, Chair 8 Hem Onc [facility] [address] [facility] [place] [address] 09/16/2024 8:00 AM EST Telemedicine Genetics HemOnc, [facility] 100 [place] [address] Sofia Eldridge, [place] [address] [facility] [place] [address] Scheduled Procedures Name Priority Associated Diagnoses Date/Ti me COLONOSCOPY FLEXIBLE PROXIMAL DIAGNOSTIC Recall Screen for colon cancer Health Maintenance Due Date Last Done Comments COVID-19 Vaccine (#1) 11/06/1979 Pneumococcal Vaccine: Pediatrics (0 to 5 Years) and At-Risk Patients (6 to 64 Years) (1 of 2 - PCV) 1980 Hepatitis B Vaccine (1 of 3 - [...] this encounter Medical Devices Implanted Type Area Epitaxial Reactor Operator Device Identifier Shelf Expiration Date Model / Serial / Lot Mediport Power Mri 8fr [id number] - [id number] Implanted:Qty : 1 on 06/23/2024 by Rubén Hou MD at OR [facility] Right: Chest CR BARD : PERIPHERAL VASCULAR 06/19/2025 [id number] / / [id number] Port Implant W8f Poly Cath - [id number] Implanted:Qty : 1 on 06/23/2024 by Rubén Hou MD at OR [facility] CR BARD : PERIPHERAL VASCULAR [id number] 06/19/2025 [id number] / / [id number] documented as of this encounter Visit Diagnoses [...] Reaction, Starting on Fri06/28/24 at 1107, Until Fri06/29/24 at 1106, For 24 hoursIndications:Malignant neoplasm of overlapping sites of left breast in female, estrogen receptor negative (HCC),Encounter for antineoplastic chemotherapy,Prevention of chemotherapy-induced neutropenia Given 06/28/2024 1:23 PM EST 50 mg EPINEPHrine 1 MG/ML inj 0.3 mg 0.3 mg, Intramuscular, ONCE PRN Other, Hypersensitivity Reaction or Anaphylaxis, Starting on Fri06/28/24 at 1107, Until Fri06/29/24 at 1106, For 24 hoursIndications:Malignant neoplasm of overlapping sites of left breast in female, estrogen receptor negative (HCC),Encounter for antineoplastic chemotherapy,Prevention of chemotherapy-induced neutropenia Famotidine (Pepcid) inj 20 mg 20 mg, IV Push, ONCE, On Fri06/28/24 at 1645, For 1 dose, Give IV push over 2 minutes.Indications:Malignan t neoplasm of overlapping sites of left breast in female, estrogen receptor negative (HCC),Encounter for antineoplastic chemotherapy,Prevention of chemotherapy-induced neutropenia hEParin 100 UNIT/ML Lock Flush inj 500 Units 500 Units (5 mL), IV Lock, PRN Other, IV Flush, Starting on Fri06/28/24 at 1107, Until Fri06/29/24 at 1106, For 24 hours, Do not flush if [...] Reaction, Starting on Fri06/28/24 at 1107, Until Fri06/29/24 at 1106, For 24 hoursIndications:Malignant neoplasm of overlapping sites of left breast in female, estrogen receptor negative (HCC),Encounter for antineoplastic chemotherapy,Prevention of chemotherapy-induced neutropenia Given 06/28/2024 1:20 PM EST 100 mg LORAzepam (Ativan) tab 0.5 mg 0.5 mg, Oral, ONCE PRN Anxiety, Nausea, Starting on Fri06/28/24 at 1215, Until DiscontinuedIndications:Lora gnant neoplasm of overlapping sites of left breast in female, estrogen receptor negative (HCC),Encounter for antineoplastic chemotherapy,Prevention of chemotherapy-induced neutropenia meperidine (Demerol) 25 MG/ML inj 25 mg 25 mg, Intramuscular, ONCE PRN Shivering, Chills/Rigors from acute infusion reaction, Starting on Fri06/28/24 at 1107, Until Fri06/29/24 at 1106, For 24 hoursIndications:Malignant neoplasm of overlapping sites of left breast in female, estrogen receptor negative (HCC),Encounter for antineoplastic chemotherapy,Prevention of chemotherapy-induced neutropenia NSS infusion Intravenous, at 50 mL/hr, PRN, Starting on Fri06/28/24 at 1215, Until Discontinued, Maintenance lineIndications:Malignant neoplasm of overlapping sites of left breast in female, estrogen receptor negative (HCC),Encounter for antineoplastic chemotherapy,Prevention of chemotherapy-induced neutropenia Start Infusion 06/28/2024 11:10 AM EST 50 mL/hr oxygen GAS Inhalation, OXYGEN, First dose on Fri06/28/24 at 1145, Until Discontinued, Device/Managed by: Low Flow Device, [...] Flush, Starting on Fri06/28/24 at 1107, Until Fri06/29/24 at 1106, For 24 hours, Do not flush if lock, PICC, or central line not in place; IV infusing or unable to flush.Indications:Malignant neoplasm of overlapping sites of left breast in female, estrogen receptor negative (HCC),Encounter for antineoplastic chemotherapy,Prevention of chemotherapy-induced neutropenia Given 06/28/2024 3:10 PM EST 10 mL Inactive Administered Medications [...] Given 06/28/2024 11:22 AM EST 50 mg Famotidine (Pepcid) tab 20 [...] 11:26 AM EST 150 mg 538.4 mL/hr PACLitaxel [...] 12:09 PM EST 200 mg 226 mL/hr documented in this encounter Care Teams Pot Fisher Relationship Specialty Start Date End Date Gordon October Faye, [facility]NA[facility] [address] [place] [address] PCP - General Physician Chief Design Branch 05/10/24 documented as of this encounter
--- OUTSIDE RECORDS SUMMARY | 2024-10-09 06:37 | External Medical Summary | Summary of Care ---
Author Name Unknown Organization [facility] Address [address] [facility] [place] [address] Phone [phone] Care Team Providers Care It Technician Name Role Phone Jewell Leyva EUGENIA Primary Care Provider [phone] Reason for Visit * Reason Onset Date Comments Advice 06/28/2024 Encounter Details Date Type Department Care Team (Late st Contact Info) Description 06/28/2024 Refill Hematology/Oncology [facility] [place] [address] [facility] [place] [address] Celia Beard MD [address] [facility] [place] [phone] Malignant neoplasm of overlapping sites of left [...] 1 08/14/2023 Food insecurity 05/31/2024 Overview: Per [facility] Pharmacy Protocol ASCUS with positive high risk [...] 8:45 AM EST Nurse Only General Surgery, [facility] 132 [facility] [place] [address] NguyenNurse shira Gen Surg [facility] 132 [facility] [place] [address] 06/29/2024 3:45 PM EST Immunization/Injection Hematology/Oncology Treatment, [employer] [place] [address] [place] [phone] Rayna, Chair 7 Hem Onc Sc[address] [place] [address] 07/02/2024 8:00 AM EST Imaging Radiology [facility] [address] [place] [address] 07/19/2024 8:30 AM EST Laboratory Laboratory [facility] [address] [place] [address] Rayna, Lab [facility] [address] [facility] [place] [address] 07/19/2024 9:00 AM EST Office Visit Hematology/Oncology [facility] [address] [place] [phone] Celia Beard MD [address] [place] [address] [place] [address] 07/19/2024 9:30 AM EST Hem[facility] [address] [place] [phone] Rayna, Chair 8 Hem Onc Scenery 200 [facility] [place] [address] 09/16/2024 8:00 AM EST Telemedicine Genetics HemOnc, [facility] 100 [place] [address] Sofia Eldridge, MS 132 [facility] [place] [address] Scheduled Procedures Name Priority Associated Diagnoses Date/Ti [...] this encounter Medical Devices Implanted Type Area Stabilizer Operator Device Identifier Shelf Expiration Date Model / Serial / Lot Mediport Power Mri 8fr [id number] - [id number] Implanted:Qty : 1 on 06/23/2024 by Rubén Hou MD at OR [facility] Right: Chest CR BARD : PERIPHERAL VASCULAR 06/19/2025 [id number] / / [id number] Port Implant W8f Poly Cath - [id number] Implanted:Qty : 1 on 06/23/2024 by Rubén Hou MD at OR [facility] CR BARD : PERIPHERAL VASCULAR [id number] 06/19/2025 [id number] / / [id number] documented as of this encounter Visit Diagnoses Diagnosis Malignant neoplasm of overlapping sites of left breast in female, estrogen receptor negative (HCC)- Primary documented in this encounter Care Teams It Technician Relationship Specialty Start Date End Date Jewell Leyva PA-C [address] [place] [address] PCP - General Physician Site Planner 05/10/24 documented as of this encounter
--- OUTSIDE RECORDS SUMMARY | 2024-10-09 06:37 | External Medical Summary | Summary of Care ---
Author Name Unknown Organization [facility] Address [address] [facility] [place] [address] Phone [phone] Care Team Providers Care Direct Support Professional Name Role Phone Codieritu Jewell Zuniga PA-C Primary Care Provider [phone] Reason for Visit * Reason Comments Chemotherapy [...] [place] INJ CYCLOPHOSPHAMD [facility]UROMEDIC Celia Beard MD [address] [place] [address] [place] [address] Phone: tel: fax: Hematology/Oncology Treatment, [place] [address] [place] [address] Phone: tel: fax: Referral ID Status Reason Start Date Expiration Date V isits Requested Visits Authorized [id number] Authorized 06/15/2024 09/15/2024 999 99 Encounter Details Date Type Department Care Team (Latest Contact Info) Description 06/28/2024 10:30 AM EST Hem/Onc Treatment Hematology/Oncolog y Treatment, [place] [address] [place] [address] Malignant neoplasm of overlapping sites [...] AM EST Nurse Only General Surgery, [facility] 132 [facility] [place] [address] Nguyen, Nurse Gen Surg [facility] 132 [facility] [place] [address] 06/29/2024 3:45 PM EST Immunization/Injection Hematology/Oncology Treatment, [place] [address] [place] [phone] Rayna, Chair 7 Hem Onc Scene 200 [facility] [place] [address] 07/02/2024 8:00 AM EST Imaging Radiology [facility] 132 [facility] [place] [address] 07/19/2024 8:30 AM EST Laboratory Laboratory [facility] [place] 200 [facility] [place] [phone] Rayna, Lab [facility] 200 [facility] [place] [address] 07/19/2024 9:00 AM EST Office Visit Hematology/Oncology [facility] [place] [address] [place] [phone] Celia Beard MD [address] [place], [place] [address] [address] 07/19/2024 9:30 AM EST Hem/Onc Treatment Hematology/Oncology Treatment, [place] [address] [facility] [place], [place] [address] Rayna, Chair 8 Hem Onc [facility] 200 [facility] [place] [address] 09/16/2024 8:00 AM EST Telemedicine Genetics HemOnc, [facility] 100 [place] [address] Sofia Eldridge, MS [address] [facility] [place] [address] Scheduled Procedures Name Priority Associated Diagnoses Date/Ti [...] this encounter Medical Devices Implanted Type Area Hotbed Operator Device Identifier Shelf Expiration Date Model / Serial / Lot Mediport Power Mri 8fr [id number] - [id number] Implanted:Qty : 1 on 06/23/2024 by Rubén Hou MD at OR [facility] Right: Chest CR BARD : PERIPHERAL VASCULAR 06/19/2025 [id number] / / [id number] Port Implant W8f Poly Cath - [id number] Implanted:Qty : 1 on 06/23/2024 by Rubén Hou MD at OR [facility] CR BARD : PERIPHERAL VASCULAR [id number] 06/19/2025 [id number] / / [id number] documented as of this encounter Visit Diagnoses [...] mL/hr documented in this encounter Care Teams Direct Support Professional Relationship Specialty Start Date End Date Jewell Leyva PA-C [address] [place] [address] [place] [address] PCP - General Physician Dock Superintendent 05/10/24 documented as of this encounter
--- OUTSIDE RECORDS SUMMARY | 2024-10-09 06:37 | External Medical Summary ---
Author Name Unknown Address Unknown Organization K09:[facility] [place] [address] Laboratory Report Ordering Provider Test Date Status GENE RUIZ 06/28/2024 09:10:15 Final Observation Date Value Abnormality Reference (Units ) Status SYNC LEUKOCYTES IN BLOOD BY AUTOMATED COUNT 06/28/2024 09:10:15 7.03 4.00-10.80 (K/uL) Final Segs 06/28/2024 09:10:15 71.8 40.0-75.0 (%) Final Lymphs % 06/28/2024 09:10:15 21.5 18.0-42.0 (%) Final Monos 06/28/2024 09:10:15 4.6 1.0-11.0 (%) Final Eosinophils 06/28/2024 09:10:15 1.7 0.0-6.0 (%) Final Basos 06/28/2024 09:10:15 0.4 0.0-2.0 (%) Final Absolute Segs 06/28/2024 09:10:15 5.05 1.80-7.70 (K/uL) Final Lymphs, absolute 06/28/2024 09:10:15 1.51 1.00-4.80 (K/ul) Final Monos, Abs 06/28/2024 09:10:15 0.32 0.00-1.10 (K/uL) Final Eos, Abs 06/28/2024 09:10:15 0.12 0.00-0.70 (K/uL) Final Basos, Abs 06/28/2024 09:10:15 0.03 0.00-0.20 (K/uL) Final Performing Location [facility] [address] [place] [address]
--- OUTSIDE RECORDS SUMMARY | 2024-10-09 06:37 | External Medical Summary | Summary of Care ---
Author Name Unknown Organization [facility] Address [address] [facility] [place] [address] Phone [phone] Care Team Providers Care Cuff Presser Name Role Phone Jewell Leyva EUGENIA Primary Care Provider Encounter Details Date Type Department Care Team (Late st Contact Info) Description 06/29/2024 8:45 AM EST Nurse Only General Surgery, [facility] 132 [facility] [place] [address] [facility], Nurse Gen Surg [facility] 132 [facility] [address] Arrived Allergies Active Allergy Reactions Criticality Noted [...] 1 08/14/2023 Food insecurity 05/31/2024 Overview: Per [facility] Pharmacy Protocol ASCUS with positive high risk [...] as of this encounter Nursing Notes * Najma Coles MED ASSIST - 06/29/2024 8:47 AM EST Patient was here for sutures remove today. No infection sign, I took two stitches off, then replaced steri strips. Patient tolerated well. documented in this encounter Plan of Treatment Upcoming Encounters Date Type Department Care Team (Late st Contact Info) Description 06/29/2024 3:45 PM EST Immunization/Injection Hematology/Oncology Treatment, [place] [address] [place] [phone] Rayna, Chair 7 Hem Onc [address] [place] [address] 07/02/2024 8:00 AM EST Imaging Radiology [facility] 132 [facility] [place] [address] 07/19/2024 8:30 AM EST Laboratory Laboratory [facility] [address] [place] [address] Rayna, Lab [place] [address] [facility] [place] [address] 07/19/2024 9:00 AM EST Office Visit Hematology/Oncology [facility] [place] [address] [place] [address] Celia Beard MD [address] [place] [address] [place] [address] 07/19/2024 9:30 AM EST Hem/Onc Treatment Hematology/Oncology Treatment, [place] [address] [place] [address] Rayna, Chair 8 Hem Onc [place] [address] [place] [address] 09/16/2024 8:00 AM EST Telemedicine Genetics HemOnc, [facility] [address] [place] [address] Sofia Eldridge, MS [address] [place] [address] Scheduled Procedures Name Priority Associated Diagnoses Date/Ti [...] this encounter Medical Devices Implanted Type Area Systems Test Analyst Device Identifier Shelf Expiration Date Model / Serial / Lot Mediport Power Mri 8fr [id number] - [id number] Implanted:Qty : 1 on 06/23/2024 by Rubén Hou MD at OR [facility] Right: Chest CR BARD : PERIPHERAL VASCULAR 06/19/2025 [id number] / / [id number] Port Implant W8f Poly Cath - [id number] Implanted:Qty : 1 on 06/23/2024 by Rubén Hou MD at OR [facility] CR BARD : PERIPHERAL VASCULAR [id number] 06/19/2025 [id number] / / [id number] documented as of this encounter Care Teams Cuff Presser Relationship Specialty Start Date End Date Gordon Jewell EUGENIA Mckinney [address] [place] [address] PCP - General Physician Diesel Engine I Pipe Fitter 05/10/24 documented as of this encounter
--- OUTSIDE RECORDS SUMMARY | 2024-10-09 06:37 | External Medical Summary | Summary of Care ---
Author Name Unknown Organization [facility] Address [address] [facility] [place] [address] Phone [phone] Care Team Providers Care Chief Compliance Officer Name Role Phone Jewell Leyva EUGENIA Primary Care Provider [phone] Reason for Visit * Reason Onset Date Comments Appointment 06/24/2024 Encounter Details Date Type Department Care Team (Late st Contact Info) Description 06/24/2024 Telephone General Surgery, [facility] [address] [place] [address] Fawn Lindsay MD [address] [place] [address] Appointment Allergies Active Allergy Reactions Criticality Noted [...] the morning. 90 Tablet 1 12/03/19 Active Amoxicillin-Pot Clavulanate 875-125 MG Oral Tablet (Augmentin)Indicat ions:Malignant neoplasm of overlapping sites of left breast in female, estrogen receptor negative (HCC) Take 1 Tablet by mouth in the morning and 1 Tablet before bedtime. 28 Tablet 06/14/20 Active oxyCODONE-Acetamin ophen 5-325 MG Oral Tablet (Percocet)Indicati ons:Malignant neoplasm of overlapping sites of left breast in female, estrogen receptor negative (HCC) Take 2 Tablets by mouth every 6 hours as needed for Pain, Mild, Pain, Moderate or Pain, Severe. 90 Tablet 06/14/20 Active Additional Information Patient not taking.Reported on [...] Additional Information Patient not taking.Reported on 06/23/2024 documented as of this encounter (statuses as [...] Encounter - Khoi Ahmadi RN - 06/28/2024 7:[address] Beard routing comment " Please schedule the patient a follow up appointment to see me on 06/28/2024" TT sent to Dr. Beard this morning to verify if we are proceeding with chemo today or holding until after surgery d/t biopsy results. Also waiting to confirm if overbook is ok. * Telephone Encounter - Fawn Lindsay MD - 06/24/2024 8:05 AM EST Called pt and reviewed path. No cancer in skin - will be candidate for immediate reconstruction at time of mastectomy (tissue photography coordinator likely as will need post mastectomy radiation). Dr. Quinn - has an appt with you later today. FYI documented in this encounter Plan of Treatment Upcoming Encounters Date Type Department Care Team (Late st Contact Info) Description 06/28/2024 9:20 AM EST Laboratory Laboratory [facility] [place] [address] [place] [address] Rayna, Lab [facility] [address] [facility] [place] [address] 06/28/2024 10:30 AM EST Hem/Onc Treatment Hematology/Oncology Treatment, [place] [address] [place] [address] 06/29/2024 8:45 AM EST Nurse Only General Surgery, [facility] [address] [place] [address] [facility] Nurse Gen Surg [facility] [address] [place] [address] 07/02/2024 8:00 AM EST Imaging Radiology [facility] [address] [place] [address] 09/16/2024 8:00 AM EST Telemedicine Genetics [facility], [facility] [address] [place] [address] Sofia Eldridge, MS [address] [place] [address] Scheduled Procedures Name Priority Associated Diagnoses Date/Ti [...] 07/23, 12/21/2015, Additional history exists Diabetes Screening 06/14/2027 06/14/2024, 0 04/10/2023, 06/11/2021, Additional history exists Cervical Cancer Screening 06/04/2028 [...] this encounter Medical Devices Implanted Type Area Acid Correction Hand Device Identifier Shelf Expiration Date Model / Serial / Lot Mediport Power Mri 8fr [id number] - [id number] Implanted:Qty : 1 on 06/23/2024 by Rubén Hou MD at OR [facility] Right: Chest CR BARD : PERIPHERAL VASCULAR 06/19/2025 [id number] / / [id number] Port Implant W8f Poly Cath - [id number] Implanted:Qty : 1 on 06/23/2024 by Rubén Hou MD at OR [facility] CR BARD : PERIPHERAL VASCULAR [id number] 06/19/2025 [id number] / / [id number] documented as of this encounter Care Teams Chief Compliance Officer Relationship Specialty Start Date End Date Codieoctober EUGENIA Mckinney [address] [place] [address] PCP - General Physician Cardiopulmonary Specialist 05/10/24 documented as of this encounter
--- OUTSIDE RECORDS SUMMARY | 2024-10-09 06:37 | External Medical Summary | Summary of Care ---
Author Name Unknown Organization [facility] Address [address] [facility] [place] [address] Phone [phone] Care Team Providers Care Vp Clinical Research Name Role Phone Jewell Leyva EUGENIA Primary Care Provider [phone] Reason for Visit * Reason Onset Date Comments Advice 06/28/2024 Encounter Details Date Type Department Care Team (Late st Contact Info) Description 06/28/2024 Refill Hematology/Oncology [facility] [place] [address] [place] [address] Sara Beard MD 400 [facility] [place] [phone] Malignant neoplasm of overlapping sites of left [...] 1 08/14/2023 Food insecurity 05/31/2024 Overview: [facility] Protocol ASCUS with positive high risk [...] 8:45 AM EST Nurse Only General Surgery, [facility] [place] [address] [facility], Nurse Gen Surg [facility] [address] [facility] [address] 06/29/2024 3:45 PM EST Immunization/Injection Hematology/[address], [address] [phone] Rayna, Chair 7 Hem On[address] [place] [address] 07/02/2024 8:00 AM EST Imaging Radiology [facility] 132 [facility] [address] 07/19/2024 8:30 AM EST Laboratory Laboratory [address] [place] [phone] [place], Lab [address] [facility] [place] [address] 07/19/2024 9:00 AM EST Office Visit Hematology/Oncology [address] [place] [address] Sara Beard MD [address] [place] [address] [place] [address] 07/19/2024 9:30 AM EST Hem/Onc Treatment Hematology/[address]cology [address] [address] Rayna, Chair 8 Hem Onc [place] [address] [place] [address] 09/16/2024 8:00 AM EST Telemedicine Genetics HemOnc, [facility] [address] [place] [address] Sofia Eldridge, MS [address] [facility] [place] [address] Scheduled Procedures Name Priority Associated Diagnoses Date/Ti [...] this encounter Medical Devices Implanted Type Area Automobile Tester Device Identifier Shelf Expiration Date Model / Serial / Lot Mediport Power Mri 8fr [id number] - [id number] Implanted:Qty : 1 on 06/23/2024 by Rubén Hou MD at OR [facility] Right: Chest CR BARD : PERIPHERAL VASCULAR 06/19/2025 [id number] / / [id number] Port Implant W8f Poly Cath - [id number] Implanted:Qty : 1 on 06/23/2024 by Rubén Hou MD at OR [facility] CR BARD : PERIPHERAL VASCULAR [id number] 06/19/2025 [id number] / / [id number] documented as of this encounter Visit Diagnoses Diagnosis Malignant neoplasm of overlapping sites of left breast in female, estrogen receptor negative (HCC)- Primary documented in this encounter Care Teams Vp Clinical Research Relationship Specialty Start Date End Date Gordon October EUGENIA Zuniga [address] [place] [address] PCP - General Physician Riddler Operator 05/10/24 documented as of this encounter
--- OUTSIDE RECORDS SUMMARY | 2024-10-09 06:37 | External Medical Summary | Summary of Care ---
Author Name Unknown Organization [facility] Address [address] [place] [address] Phone [phone] Care Team Providers Care Macroeconomics Professor Name Role Phone Gordon Jewell Faye EUGENIA Primary Care Provider [phone] Reason for Visit * Reason Comments Outpatient Testing Encounter Details Date Type Department Care Team (Late st Contact Info) Description 06/28/2024 9:00 AM EST Laboratory Laboratory [facility] [address] [place] [address] [facility] Lab Scene [address] [place] [address] Malignant neoplasm of overlapping sites of left [...] Team (Late st Contact Info) Description 06/28/2024 10:30 AM EST Hem/Onc Treatment Hematology/Oncology Treatment, [place] [address] [place] [address] Arrived 06/29/2024 8:45 AM EST Nurse Only General Surgery, [facility] 132 [place] [address] [facility], Nurse Gen Surg [facility] 132 [place] [address] 07/02/2024 8:00 AM EST Imaging Radiology [facility] 132 [place] [address] 09/16/2024 8:00 AM EST Telemedicine Genetics HemOn, [address] [address] Sofia Eldridge, MS 132 [place] [address] Pending Results Name Type Priority Associated Diagnoses Date /Time COMPREHENSIVE METABOLIC PANEL Lab STAT Malignant neoplasm of overlapping sites of left breast in female, estrogen receptor negative (HCC) 06/28/2024 9:10 AM EST TSH WITH FREE T4 IF INDICATED Lab Routine Malignant neoplasm of overlapping sites of left breast in female, estrogen receptor negative (HCC) 06/28/2024 9:10 AM EST Scheduled Procedures Name Priority Associated [...] encounter Medical Devices Implanted Type Area Editor Magazine Device Identifier Shelf Expiration Date Model / Serial / Lot Mediport Power Mri 8fr [id number] - [id number] Implanted:Qty : 1 on 06/23/2024 by Rubén Hou MD at OR [facility] Right: Chest CR BARD : PERIPHERAL VASCULAR 06/19/2025 [id number] / / [id number] Port Implant W8f Poly Cath - [id number] Implanted:Qty : 1 on 06/23/2024 by Rubén Hou MD at OR [facility] CR BARD : PERIPHERAL VASCULAR [id number] 06/19/2025 [id number] / / [id number] documented as of this encounter Procedures Procedure Name Priority Date/Time Associated Diagnosis Comments DIFFERENTIAL, AUTOMATED STAT 06/28/2024 9:10 AM EST Malignant neoplasm of overlapping sites of left breast in female, estrogen receptor negative (HCC) CBC STAT 06/28/2024 9:10 AM EST Malignant neoplasm of overlapping sites of left breast in female, estrogen receptor negative (HCC) CBC STAT 06/28/2024 9:10 AM EST Malignant neoplasm of overlapping sites of left breast in female, estrogen receptor negative (HCC) documented in this encounter Results * DIFFERENTIAL, AUTOMATED (06/28/2024 9:10 AM EST) WBC 7.03 4.00 - 10.80 K/uL 06/28/2024 9:17 AM EST LAB[facility]ATORY [place] 56-02 Neutrophils % 71.8 40.0 - 75.0 % 06/28/2024 9:17 AM EST [facility] 56-02 Lymphocytes % 21.5 18.0 - 42.0 % 06/28/2024 9:17 AM EST [facility] [place] 56-02 Monocytes % 4.6 1.0 - 11.0 % 06/28/2024 9:17 AM EST [facility] [place] 56-02 Eosinophils % 1.7 0.0 - 6.0 % 06/28/2024 9:17 AM EST [facility] [place] 56-02 Basophils % 0.4 0.0 - 2.0 % 06/28/2024 9:17 AM EST [facility] [place] 56-02 Absolute Neutrophils 5.05 1.80 - 7.70 K/uL 06/28/2024 9:17 AM EST [facility] [place] 56-02 Absolute Lymphocytes 1.51 1.00 - 4.80 K/ul 06/28/2024 9:17 AM EST [facility] [place] 56-02 Absolute Monocytes 0.32 0.00 - 1.10 K/uL 06/28/2024 9:17 AM EST LAB[facility]ORY [facility] [place] 56-02 Absolute Eosinophils 0.12 0.00 - 0.70 K/uL 06/28/2024 9:17 AM EST [facility] [place] 56-02 Absolute Basophils 0.03 0.00 - 0.20 K/uL 06/28/2024 9:17 AM [facility] Blood Venous blood specimen / Unknown Venipuncture / Unknown 06/28/2024 9:10 AM EST 06/28/2024 9:10 AM EST Celia Beard MD LAB BLOOD OR DERABLES Final Result [place] [address] [address] [place] [address] * CBC (06/28/2024 9:10 AM EST) WBC 7.03 4.00 - 10.80 K/uL 06/28/2024 9:17 AM [place] [address] RBC 4.71 3.85 - 5.15 M/uL 06/28/2024 9:17 AM [place] [address] HGB 14.0 12.0 - 15.3 g/dL 06/28/2024 9:17 AM [place] [address] HCT 42.5 36.0 - 45.2 % 06/28/2024 9:17 AM [place] [address] MCV 90.2 81.5 - 97.5 fL 06/28/2024 9:17 AM [place] [address] MCH 29.7 27.0 - 34.0 pg 06/28/2024 9:17 AM [place] [address] MCHC 32.9 32.0 - 36.0 g/dL 06/28/2024 9:17 AM [place] [address] RDW 12.7 11.5 - 15.5 % 06/28/2024 9:17 AM [place] [address] PLT 201 140 - 400 K/uL 06/28/2024 9:17 AM [place] [address] MPV 10.8 6.6 - 11.1 fL 06/28/2024 9:17 AM [facility] Blood Venous blood specimen / Unknown Venipuncture / Unknown 06/28/2024 9:10 AM EST 06/28/2024 9:10 AM EST Celia Beard MD LAB BLOOD OR DERABLES Final Result [facility] 56-02 200 [facility] [place] [address] documented in this encounter Visit Diagnoses Diagnosis Malignant neoplasm of overlapping sites of left breast in female, estrogen receptor negative (HCC) documented in this encounter Care Teams Macroeconomics Professor Relationship Specialty Start Date End Date Gordon Jewell EUGENIA Mckinney 200 [facility] [place] [address] PCP - General Physician Air Drier Machine Operator 05/10/24 documented as of this encounter
--- OUTSIDE RECORDS SUMMARY | 2024-10-09 06:37 | External Medical Summary | Summary of Care ---
Author Name Unknown Organization [facility] Address [address] [facility] [place] [address] Phone [phone] Care Team Providers Care Vending Enterprises Supervisor Name Role Phone Jewell Leyva EUGENIA Primary Care Provider [phone] Reason for Visit * Reason Onset Date Comments Follow Up 06/29/2024 S/P C1,D1 Keytru da/Carbo/Taxol Encounter Details Date Type Department Care Team (Late st Contact Info) Description 06/29/2024 Telephone Hematology/Oncology [facility] [place] [address] [place] [address] Celia Beard MD 400 [facility] [place] [address] Follow Up (S/P C1,D1 Keytruda/Carbo/Taxol) Allergies Active Allergy Reactions Criticality Noted Date [...] 1 08/14/2023 Food insecurity 05/31/2024 Overview: Per [facility] Protocol ASCUS with positive high [...] Khoi Ahmadi RN - 06/29/2024 8:25 AM EST HEMATOLOGY/ONCOLOGY INITIAL CHEMO FOLLOW-UP Post chemo side effects: Fatigue Understands post treatment medications: Yes Understands to call office prior to ER visit/or with issues: Yes Aware of next appointment: Yes Additional information: Instructed patient that she will take 2 tablets of dexamethasone for 2 daysprior to her chemotherapy, continue all medications as previously prescribed. Advised she will take2 tablets of dexamethasone for 3 days after chemo as well. Pt verbalized understanding of all instructions. documented in this encounter Plan of Treatment Upcoming Encounters Date Type Department Care Team (Late st Contact Info) Description 06/29/2024 3:45 PM EST Immunization/Injection Hematology/Oncology Treatment, [place] [address] [place] [address] Rayna, Chair 7 Hem Onc [facility] [place] [address] 07/02/2024 8:00 AM EST Imaging Radiology [facility] 132 [facility] [place] [address] 07/19/2024 8:30 AM EST Laboratory Laboratory [facility] [place] [address] [address] [place] [phone] Rayna, Lab [address] 200 [facility] [place] [address] 07/19/2024 9:00 AM EST Office Visit Hematology/Oncology [address] [place] [address] [place] [address] Celia Beard MD [address] [place] [address] [place] [phone] 07/19/2024 9:30 AM EST Hem/Onc Treatment Hematology/Oncology Treatment, [place] [address] [facility] [address] [place] [phone] Rayna, Chair 8 Hem Onc [address] [place] [address] 09/16/2024 8:00 AM EST Telemedicine Genetics HemOnc, [facility] 100 [place] [address] Sofia Eldridge, MS [facility] [address] Scheduled Procedures Name Priority Associated Diagnoses [...] this encounter Medical Devices Implanted Type Area Wastewater Treatment Plant Supervisor Device Identifier Shelf Expiration Date Model / Serial / Lot Mediport Power Mri 8fr [id number] - [id number] Implanted:Qty : 1 on 06/23/2024 by Rubén Hou MD at OR [facility] Right: Chest CR BARD : PERIPHERAL VASCULAR 06/19/2025 [id number] / / [id number] Port Implant W8f Poly Cath - [id number] Implanted:Qty : 1 on 06/23/2024 by Rubén Hou MD at OR [facility] CR BARD : PERIPHERAL VASCULAR [id number] 06/19/2025 [id number] / / [id number] documented as of this encounter Care Teams Vending Enterprises Supervisor Relationship Specialty Start Date End Date Jewell Leyva PA-C [address] [place] [address] PCP - General Physician It Associate 05/10/24 documented as of this encounter
--- OUTSIDE RECORDS SUMMARY | 2024-10-09 06:37 | External Medical Summary | Summary of Care ---
Author Name Unknown Organization [facility] Address [address] [facility] [place] [address] Phone [phone] Care Team Providers Care Bicycle Rental Clerk Name Role Phone Jewell Leyva EUGENIA Primary Care Provider Reason for Visit * Reason Onset Date Comments Appointment 06/24/2024 Encounter Details Date Type Department Care Team (Late st Contact Info) Description 06/24/2024 Telephone General Surgery, [facility] [address] [place] [address] Fawn Lindsay MD [address] [place] [address] Appointment Allergies Active Allergy Reactions Criticality Noted [...] Encounter - Khoi Ahmadi RN - 06/28/2024 8:[address] Beard- ok to overbook patient. Called patient to have her come this morning, she is going to have lab work at 9AM and will follow up with Dr. Beard at 9:15. * Telephone Encounter - Khoi Ahmadi RN [...] immediate reconstruction at time of mastectomy (tissue immigration services officer likely as will need post mastectomy radiation). Dr. Quinn - has an appt with you later today. FYI documented in this encounter Plan of Treatment Upcoming Encounters Date Type Department Care Team (Late st Contact Info) Description 06/28/2024 9:00 AM EST Laboratory Laboratory [address] [place] [address] [place] [phone] Sc[address] [place], [place] [address] 06/28/2024 10:30 AM EST Hem/Onc Treatment Hematology/Oncology Treatment, [place] [address] [place] [address] 06/29/2024 8:45 AM EST Nurse Only General Surgery, [facility] 132 [facility] [address] [facility], Nurse Gen Surg [facility] 132 [facility] [address] 07/02/2024 8:00 AM EST Imaging Radiology [facility] 132 [facility] [address] 09/16/2024 8:00 AM EST Telemedicine Genetics Hem[facility], [place] [address] [place] [address] Sofia Eldridge, MS [address] [facility] [address] Scheduled Procedures Name Priority Associated Diagnoses Date/Ti [...] this encounter Medical Devices Implanted Type Area Ehr Trainer Device Identifier Shelf Expiration Date Model / Serial / Lot Mediport Power Mri 8fr [id number] - [id number] Implanted:Qty : 1 on 06/23/2024 by Rubén Hou MD at OR [facility] Right: Chest CR BARD : PERIPHERAL VASCULAR 06/19/2025 [id number] / / [id number] Port Implant W8f Poly Cath - [id number] Implanted:Qty : 1 on 06/23/2024 by Rubén Hou MD at OR [facility] CR BARD : PERIPHERAL VASCULAR [id number] 06/19/2025 [id number] / / [id number] documented as of this encounter Care Teams Bicycle Rental Clerk Relationship Specialty Start Date End Date Jewell Leyva PA-C [address] [place] [address] PCP - General Physician Tuyere Fitter 05/10/24 documented as of this encounter
--- OUTSIDE RECORDS SUMMARY | 2024-10-09 06:37 | External Medical Summary | Summary of Care ---
Author Name Unknown Organization [facility] Address [address] [facility] [place] [address] Phone [phone] Care Team Providers Care Mine Exploration Engineer Name Role Phone Codieritu Jewell Zuniga PA-C Primary Care Provider [phone] Reason for Visit * Reason Comments Chemotherapy [...] 1MCG ND PACLITAXEL INJECTION ND INJ CYCLOPHOSPHAMD AUROMEDIC Celia Beard MD [address] [place] [address] [place] [address] Phone: tel: fax: Hematology/Oncology Treatment, [place] [address] [place] [address] Phone: tel: fax: Referral ID Status Reason Start Date Expiration Date V isits Requested Visits Authorized [id number] Authorized 06/15/2024 09/15/2024 [id number] Encounter Details Date Type Department Care Team (Latest Contact Info) Description 06/28/2024 10:30 AM EST Hem/Onc Treatment Hematology/Oncolog y Treatment, [place] [address] [place] [address] Malignant neoplasm of overlapping sites [...] 8:45 AM EST Nurse Only General Surgery, [facility] 132 [facility] [place] [address] [place], Nurse Gen Surg [facility] 132 [facility] [place] [address] 06/29/2024 3:45 PM EST Immunization/Injection Hematology/Oncology Treatment, [place] [address] [place] [phone] Rayna, Chair 7 Hem Onc Scene 200 [facility] [place] [address] 07/02/2024 8:00 AM EST Imaging Radiology [facility] 132 [facility] [place] [address] 07/19/2024 8:30 AM EST Laboratory Laboratory [facility] [place] 200 [facility] [place] [phone] Rayna, Lab [facility] 200 [facility] [place] [address] 07/19/2024 9:00 AM EST Office Visit Hematology/Oncology [facility] [place] [address] [place] [phone] Celia Beard MD [address] [place], [place] [address] [address] 07/19/2024 9:30 AM EST Hem/Onc Treatment Hematology/Oncology Treatment, [place] [address] [facility] [place], [place] [address] Rayna, Chair 8 Hem Onc [facility] 200 [facility] [place] [address] 09/16/2024 8:00 AM EST Telemedicine Genetics HemOnc, [facility] 100 [place] [address] Sofia Eldridge, MS [address] [place] [address] Scheduled Procedures Name Priority Associated Diagnoses Date/Ti [...] this encounter Medical Devices Implanted Type Area Head Worker Device Identifier Shelf Expiration Date Model / Serial / Lot Mediport Power Mri 8fr [id number] - [id number] Implanted:Qty : 1 on 06/23/2024 by Rubén Hou MD at OR [facility] Right: Chest CR BARD : PERIPHERAL VASCULAR 06/19/2025 [id number] / / [id number] Port Implant W8f Poly Cath - [id number] Implanted:Qty : 1 on 06/23/2024 by Rubén Hou MD at OR [facility] CR BARD : PERIPHERAL VASCULAR [id number] 06/19/2025 [id number] / / [id number] documented as of this encounter Visit Diagnoses [...] mL/hr documented in this encounter Care Teams Mine Exploration Engineer Relationship Specialty Start Date End Date Gordon October Faye, SAPNAC [address] [place] [address] PCP - General Physician Doctor Assistant 05/10/24 documented as of this encounter
--- OUTSIDE RECORDS SUMMARY | 2024-10-09 06:37 | External Medical Summary | Summary of Care ---
Author Name Unknown Organization [facility] Address [address] [facility] [place] [address] Phone [phone] Care Team Providers Care Sales And Marketing Vice President Name Role Phone Jewell Leyva EUGENIA Primary Care Provider [phone] Reason for Visit * Reason Onset Date Comments Appointment 06/24/2024 Encounter Details Date Type Department Care Team (Late st Contact Info) Description 06/24/2024 Telephone General Surgery, [facility] [address] [place] [address] Fawn Lindsay MD [address] [place] [address] Appointment Allergies Active Allergy Reactions Criticality Noted [...] encounter Miscellaneous Notes * Telephone Encounter - Atiya Tillman OSA - 06/28/2024 9:54 AM EST Pt was added to the schedule * Telephone Encounter - Khoi Ahmadi RN - 06/28/2024 8:[address] Beadr- ok to overbook patient. Called patient to [...] immediate reconstruction at time of mastectomy (tissue encapsulator likely as will need post mastectomy radiation). Dr. Quinn - has an appt with you later today. FYI documented in this encounter Plan of Treatment Upcoming Encounters Date Type Department Care Team (Late st Contact Info) Description 06/28/2024 10:30 AM EST Hem/Onc Treatment Hematology/Oncology Treatment, [place] [address] [place] [address] Arrived 06/29/2024 8:45 AM EST Nurse Only General Surgery, [facility] [address] [facility], Nurse Gen Surg [facility] [address] 07/02/2024 8:00 AM EST Imaging Radiology [facility] [address] 09/16/2024 8:00 AM EST Telemedicine Genetics HemOn, [facility] [address] [place] [address] Sofia Eldridge, [place] [facility] [address] Scheduled Procedures Name Priority Associated Diagnoses Date/Ti [...] this encounter Medical Devices Implanted Type Area Sponge Maker Device Identifier Shelf Expiration Date Model / Serial / Lot Mediport Power Mri 8fr [id number] - [id number] Implanted:Qty : 1 on 06/23/2024 by Rubén Hou MD at OR [facility] Right: Chest CR BARD : PERIPHERAL VASCULAR 06/19/2025 [id number] / / [id number] Port Implant W8f Poly Cath - [id number] Implanted:Qty : 1 on 06/23/2024 by Rubén Hou MD at OR [facility] CR BARD : PERIPHERAL VASCULAR [id number] 06/19/2025 [id number] / / [id number] documented as of this encounter Care Teams Sales And Marketing Vice President Relationship Specialty Start Date End Date Jewell Leyva PA-C [facility] [address] [place] [address] PCP - General Physician Notched Blade Loader 05/10/24 documented as of this encounter
--- OUTSIDE RECORDS SUMMARY | 2024-10-09 06:37 | External Medical Summary ---
Author Name Unknown Address Unknown Organization K09:[facility] [place] [address] Laboratory Report Ordering Provider Test Date Status GENE RUIZ 06/28/2024 09:10:15 Final Observation Date Value Abnormality Reference (Units ) Status WBC, Total 06/28/2024 09:10:15 7.03 4.00-10.8 0 (K/uL) Final RBC 06/28/2024 09:10:15 4.71 3.85-5.15 (M/uL) Final Hemoglobin 06/28/2024 09:10:15 14.0 12.0-15.3 (g/dL) Final HCT 06/28/2024 09:10:15 42.5 36.0-45.2 (%) Final MCV 06/28/2024 09:10:15 90.2 81.5-97.5 (fL) Final MCH 06/28/2024 09:10:15 29.7 27.0-34.0 (pg) Final MCHC 06/28/2024 09:10:15 32.9 32.0-36.0 (g/dL) Final RDW 06/28/2024 09:10:15 12.7 11.5-15.5 (%) Final Platelets 06/28/2024 09:10:15 201 140-400 (K /uL) Final MPV 06/28/2024 09:10:15 10.8 6.6-11.1 ( fL) Final Performing Location [facility] [place] [address]
--- OUTSIDE RECORDS SUMMARY | 2024-10-09 06:37 | External Medical Summary | Summary of Care ---
Author Name Unknown Organization [facility] Address [address] [facility] [place] [address] Phone [phone] Care Team Providers Care Manager Copy Name Role Phone Jewell Leyva EUGENIA Primary Care Provider [phone] Encounter Details Date Type Department Care Team (Late st Contact Info) Description 06/29/2024 8:45 AM EST Nurse Only General Surgery, [facility] 132 [place] [address] [facility], Nurse Gen Surg [facility] [address] [facility] [address] Arrived Allergies Active Allergy Reactions Criticality Noted [...] 1 08/14/2023 Food insecurity 05/31/2024 Overview: Per [facility] Protocol ASCUS with positive high risk [...] 06/29/2024 3:45 PM EST Immunization/Injection Hematology/Oncology Treatment, [place] [address] [place] [phone] Rayna, Chair 7 Hem Onc [address] [place] [address] 07/02/2024 8:00 AM EST Imaging Radiology [facility] [address] [facility] [place] [address] 07/19/2024 8:30 AM EST Laboratory Laboratory [facility] [address] [place] [address] Rayna, Lab Scenery [address] INCLUDE [address] [facility]S AT [facility] [place] [address] 07/19/2024 9:00 AM EST Office Visit Hematology/Oncology [facility] [place] [address] [place] [address] Celia Beard MD [address] [place] [address] [place] [address] 07/19/2024 9:30 AM EST Hem/Onc Treatment Hematology/Oncology Treatment, [place] [address] [place] [address] Rayna, Chair 8 Hem Onc [place] [address] [place] [address] 09/16/2024 8:00 AM EST Telemedicine Genetics HemOnc, [facility] [address] [place] [address] Sofia [place]ridge, MS [address] [place] [address] Scheduled Procedures Name Priority Associated Diagnoses Date/Ti [...] this encounter Medical Devices Implanted Type Area Molding Room Supervisor Device Identifier Shelf Expiration Date Model / Serial / Lot Mediport Power Mri 8fr [id number] - [id number] Implanted:Qty : 1 on 06/23/2024 by Rubén Hou MD at OR [facility] Right: Chest CR BARD : PERIPHERAL VASCULAR 06/19/2025 [id number] / / [id number] Port Implant W8f Poly Cath - [id number] Implanted:Qty : 1 on 06/23/2024 by Rubén Hou MD at OR [facility] CR BARD : PERIPHERAL VASCULAR [id number] 06/19/2025 [id number] / / [id number] documented as of this encounter Care Teams Manager Copy Relationship Specialty Start Date End Date Gordon Jewell EUGENIA Mckinney [address] [place] [place] [address] PCP - General Physician Clinical Psychologist Licensed 05/10/24 documented as of this encounter
--- OUTSIDE RECORDS SUMMARY | 2024-10-09 06:38 | External Medical Summary | Summary of Care ---
Author Name Unknown Organization [facility] Address [address] [facility] [place] [address] Phone [phone] Care Team Providers Care Cutting And Splicing Supervisor Name Role Phone Gordon Jewell Faye EUGENIA Primary Care Provider [phone] Reason for Visit * Reason Comments Follow Up Office Procedure Pt presents for offi ce procedure, wanting to discuss some things prior to procedure. Encounter Details Date Type Department Care Team (Late st Contact Info) Description 06/22/2024 8:00 AM EST Office Visit General Surgery, [facility] [address] [place] [address] Fawn Lindsay MD [address] [place] [address] Malignant neoplasm of upper-inner quadrant of left breast in female, estrogen receptor negative (HCC)*; Axillary adenopathy Allergies Active Allergy Reactions Criticality Noted Date Comments Vancomycin Low 03/16/2022 documented as of this encounter (statuses as of 06/22/2024) Medications MULTIVITAMINS PO TABS one a day Active ALPRAZolam 0.25 MG Oral Tablet (xaNAX) Take by mouth 1 Tablet in the morning AND 1 Tablet at noon AND 1 Tablet before bedtime. As needed for anxiety. 30 Tablet 1 11/14/19 22 Active Additional Information Patient not taking.Reported on 06/22/2024 Nitroglycerin 0.2% rectal ointment Administer into the rectum 2 times a day. 20 g 3 11/06/19 Active Additional Information Patient not taking.Reported on 06/22/2024 PARoxetine HCl 40 MG Oral Tablet (pAXil) Take 1 Tablet by mouth in the morning. 90 Tablet 1 12/03/19 24 Active Amoxicillin-Pot Clavulanate 875-125 MG Oral Tablet (Augmentin)Indicat ions:Malignant neoplasm of overlapping sites of left breast in female, estrogen receptor negative (HCC) Take 1 Tablet by mouth in the morning and 1 Tablet before bedtime. 28 Tablet 06/14/20 24 Active oxyCODONE-Acetamin ophen 5-325 MG Oral Tablet (Percocet)Indicati ons:Malignant neoplasm of overlapping sites of left breast in female, estrogen receptor negative (HCC) Take 2 Tablets by mouth every 6 hours as needed for Pain, Mild, Pain, Moderate or Pain, Severe. 90 Tablet 06/14/20 Active Additional Information Patient not taking.Reported on 06/22/2024 diphenhydrAMINE HCl 25 MG Oral Tablet (Benadryl)Indicati ons:Malignant neoplasm of overlapping sites of left breast in female, estrogen receptor negative (HCC),Encounter for antineoplastic chemotherapy,Preve ntion of chemotherapy-induc ed neutropenia Take by mouth 1 Capsule 12 hours prior to paclitaxel infusion. 12 Tablet 06/15/20 24 Active Famotidine 20 MG Oral Tablet (Pepcid)Indication s:Malignant neoplasm of overlapping sites of left breast in female, estrogen receptor negative (HCC),Encounter for antineoplastic chemotherapy,Preve ntion of chemotherapy-induc ed neutropenia Take by mouth 1 Tablet 12 hours prior to paclitaxel infusion. 12 Tablet 06/15/20 24 Active Prochlorperazine Maleate 10 MG Oral Tablet (Compazine)Indicat ions:Malignant neoplasm of overlapping sites of left breast in female, estrogen receptor negative (HCC),Encounter for antineoplastic chemotherapy,Preve ntion of chemotherapy-induc ed neutropenia Take 1 Tablet by mouth every 6 hours as needed for Nausea. 30 Tablet 5 06/15/20 24 Active Lidocaine-Prilocai ne 2.5-2.5 % External Cream (Emla)Indications: Malignant neoplasm of overlapping sites of left breast in female, estrogen receptor negative (HCC) APPLY TO SKIN OVER MEDIPORT & COVER 1HR PRIOR TO ACCESSING. 30 g 1 06/15/20 24 Active Loratadine 10 MG Oral Tablet (Claritin)Indicati ons:Malignant neoplasm of overlapping sites of left breast in female, estrogen receptor negative (HCC) Take 1 tablet by mouth daily x5 days starting the day of chemotherapy 40 Tablet 06/15/20 24 Active Ondansetron HCl 8 MG Oral Tablet (Zofran)Indication s:Malignant neoplasm of overlapping sites of left breast in female, estrogen receptor negative (HCC) Take 1 Tablet by mouth every 8 hours as needed for Nausea. 30 Tablet 3 06/15/20 24 Active Hospital, Clinic, or Other Facility Administered Medication Ordered Dose Route Frequency Start Date End Date Status lidocaine-epinephrine 2 %-1:842259 inj 200 mgIndications:Malignant neoplasm of upper-inner quadrant of left breast in female, estrogen receptor negative (HCC) 200 mg SC ONCE 06/22/2024 06/22/2024 Ended documented as of this encounter (statuses as of 06/22/2024) Active Problems Problem Noted Date Diagnosed Date Malignant neoplasm of overla pping sites of left breast in female, estrogen receptor negative 06/14/2024 Encounter for antineoplastic chemotherapy 2023 Prevention of chemotherapy-induced neutropenia 1 08/14/2023 Food insecurity 05/31/2024 Overview: Per [facility] Protocol ASCUS with positive high risk HPV cervical 06/04 Major depressive disorder, r ecurrent severe without psychotic features 04/10/2023 Major depressive disorder, single episode, moder ate 06/07/2021 Encounter for other general counseling or advice on contraception 04/27/2010 Overview (04/20/2024): ICD-10 update of inactive term documented as of this encounter (statuses as of 06/22/2024) Resolved Problems Problem Noted Date Diagnosed Date Resolved Date Current mild episode of chente r depressive disorder without prior episode 08/19/2018 4 ABN PAP SMEAR-CERVIX 999 Encounter for supervision of other normal 05/28/2016 Overview (11/21/2015): ICD-10 update of inactive term documented as of this encounter (statuses as of 06/22/2024) Immunizations Name Administration Dates Next Due TD [...] nodes. Will order US biopsy and avery computer operations analyst placement into left axillary node. Will need post mastectomy radiation for internal mammary node. Plan for chemo upfront - rationale discussed with both. Will need left mastectomy given multiple satellite lesions on MRI. Skin biopsy done today will determine if reconstruction is an option at time of mastectomy or if she will need delayed reconstruction. Genetic testing to be done in Aug. documented in this encounter Nursing Notes * Erika Araujo LPN - 06/22/2024 8:06 AM EST Patient identified by name and date of . Chief Complaint Patient presents with Follow Up Office Procedure Pt presents for office procedure, wanting to discuss some things prior to procedure. documented in this encounter Plan of Treatment Upcoming Encounters Date Type Department Care Team (Latest Contact Info) Description 06/23/2024 9:00 AM EST Hospital Encounter OR [facility], Operating Room, [facility] - 4th Floor [address] [place] [address] Rubén Hou MD [address] [facility] [place] [address] 06/23/2024 9:00 AM EST - 06/23/2024 9:56 AM EST Surgery OR [facility], Operating Room, [facility] - 4th Floor [address] [place] [address] Rubén Hou MD [address] [facility] [place] [address] INSERT TUNNELED CENTRAL VENOUS ACCESS WITH SUBQ PORT 06/24/2024 3:00 PM EST Office Visit Plastic Surgery, [place] [address] [place] [address] Pratik Quinn MD [address] [place] [address] 06/28/2024 9:20 AM EST Laboratory Laboratory [facility] 200 [place] [address] Rayna Lab [facility] [address] [facility] [place] [address] 06/28/2024 10:30 AM EST Hem/Onc Treatment Hematology/Oncolog y Treatment, [place] [address] [place] [phone] 06/29/2024 8:45 AM EST Nurse Only General Surgery, [place] [facility] [place] [address] [facility] [place] [address] Nurse Patrick Gen Surg [facility] 132 [facility] [place] [address] 09/16/2024 8:00 AM EST Telemedicine Genetics HemOnc, [facility] [address] [place] [address] Sofia [place], MS [address] [place] [address] Pending Results Name Type Priority Associated Diagnoses Date /Time SURGICAL PATHOLOGY Pathology Routine Malignant neoplasm of upper-inner quadrant of left breast in female, estrogen receptor negative (HCC) 06/22/2024 11:07 AM EST Scheduled Orders Name Type Priority Associated Diagnoses Orde r Schedule US GUIDED BREAST BIOPSY LEFT Medical Imaging Routine Malignant neoplasm of upper-inner quadrant of left breast in female, estrogen receptor negative (HCC) Axillary adenopathy Expected: 06/23/2024 (Approximate), Expires: 07/23/2025 Scheduled Procedures Name Priority Associated Diagnoses Date/Ti me INSERT TUNNELED CENTRAL VENOUS ACCESS WITH SUBQ PORT Malignant neoplasm of overlapping sites of left breast in female, estrogen receptor negative (HCC) 06/23/2024 9:00 AM EST COLONOSCOPY FLEXIBLE PROXIMAL DIAGNOSTIC Recall Screen for [...] documented as of this encounter Medical Devices Not on filedocumented as of this encounter Visit Diagnoses Diagnosis Malignant neoplasm of upper-inner quadrant of left breast in female, estrogen receptor negative (HCC)- Primary Axillary adenopathy Enlargement of lymph nodes Malignant neoplasm of overlapping sites of left breast in female, estrogen receptor negative (HCC) documented in this encounter Administered Medications Inactive Administered Medications - up to 3 most recent administrations Medication Order MAR Action Action Date Dose Rate Site lidocaine-epinephrine 2 %-1:730770 inj 200 mg 200 mg (10 mL), Subcutaneous, ONCE, On Fri06/22/24 at 1015, For 1 doseIndications:Malignant neoplasm of upper-inner quadrant of left breast in female, estrogen receptor negative (HCC) Given 06/22/2024 11:08 AM EST 200 [address] east Left documented in this encounter Care Teams Cutting And Splicing Supervisor Relationship Specialty Start Date End Date GordonOctober EUGENIA Mckinney [address] [place] [address] PCP - General Physician Roustabout Pusher 05/10/24 documented as of this encounter
--- OUTSIDE RECORDS SUMMARY | 2024-10-09 06:38 | External Medical Summary | Summary of Care ---
Author Name Unknown Organization [facility] Address [address] [facility] [place] [address] Phone [phone] Care Team Providers Care Scenario Writer Name Role Phone Jewell Leyva EUGENIA Primary Care Provider [phone] Encounter Details Date Type Department Care Team (Late st Contact Info) Description 06/24/2024 Telephone General Surgery, [facility] [address] [place] [address] Fawn Lindsay MD [address] [place] [address] Allergies Active Allergy Reactions Criticality Noted Date Comments Vancomycin Low 03/16/2022 documented as of this encounter (statuses as of 06/24/2024) Medications MULTIVITAMINS PO TABS one a day [...] 1HR PRIOR TO ACCESSING. 30 g 1 11/26/20 24 Active Additional Information Patient not [...] as of this encounter (statuses as of 06/24/2024) Active Problems Problem Noted Date Diagnosed Date [...] as of this encounter (statuses as of 06/24/2024) Resolved Problems Problem Noted Date Diagnosed Date Resolved Date Current mild episode of chente r depressive disorder without prior episode 08/19/2018 4 ABN PAP SMEAR-CERVIX 999 Encounter for supervision of other normal 05/28/2016 Overview (11/21/2015): ICD-10 update of inactive term documented as of this encounter (statuses as of 06/24/2024) Immunizations Name Administration Dates Next Due TD [...] encounter Miscellaneous Notes * Telephone Encounter - Fawn Lindsay MD - 06/24/2024 8:05 AM EST Called pt and reviewed path. No cancer in skin - will be candidate for immediate reconstruction at time of mastectomy (tissue teaching manager likely as will need post mastectomy radiation). Dr. Quinn - has an appt with you later today. FYI documented in this encounter Plan of Treatment Upcoming Encounters Date Type Department Care Team (Late st Contact Info) Description 06/24/2024 3:00 PM EST Office Visit Plastic Surgery, [place] [address] [place] [address] Pratik Quinn MD [address] [place] [address] 06/28/2024 9:20 AM EST Laboratory Laboratory [facility] [address] [place] [phone] [place], Lab Scenery [address] [place] [address] 06/28/2024 10:30 AM EST Hem/Onc Treatment Hematology/Oncology Treatment, [place] [address] [place] [address] 06/29/2024 8:45 AM EST Nurse Only General Surgery, [facility] 132 [facility] [place] [address] [place], Nurse Gen Surg [facility] 132 [facility] [address] 07/02/2024 8:00 AM EST Imaging Radiology [facility] [address] [place] [address] 09/16/2024 8:00 AM EST Telemedicine Genetics [facility], [facility] [place] [address] [place] [address] [place]te Sofia Jasmine, MS [address] [place] [address] Scheduled Procedures Name Priority Associated Diagnoses Date/Ti [...] this encounter Medical Devices Implanted Type Area Drama Therapist Device Identifier Shelf Expiration Date Model / Serial / Lot Mediport Power Mri 8fr [id number] - [id number] Implanted:Qty : 1 on 06/23/2024 by Rubén Hou MD at OR [facility] Right: Chest CR BARD : PERIPHERAL VASCULAR 06/19/2025 [id number] / / [id number] Port Implant W8f Poly Cath - [id number] Implanted:Qty : 1 on 06/23/2024 by Rubén Hou MD at OR [facility] CR BARD : PERIPHERAL VASCULAR [id number] 06/19/2025 [id number] / / [id number] documented as of this encounter Care Teams Scenario Writer Relationship Specialty Start Date End Date Codieoctober EUGENIA Mckinney 200 [facility] [place] [address] PCP - General Physician City Secretary 05/10/24 documented as of this encounter
--- OUTSIDE RECORDS SUMMARY | 2024-10-09 06:38 | External Medical Summary | Summary of Care ---
Author Name Unknown Organization [facility] Address [address] [place] [address] Phone [phone] Care Team Providers Care Case Management Associate Name Role Phone Jewell Leyva Faye BELLO Primary Care Provider Reason for Visit * Reason Comments NEW PATIENT * Evaluate & Treat - Unlimited Visits (Within 30 days (routine)) - Authorized Specialty Diagnoses / Procedures Referred By Contyesica t Referred To Contact Plastic Surgery Diagnoses Malignant neoplasm of upper-inner quadrant of left breast in female, estrogen receptor negative (HCC) Fawn Lindsay MD [address] [place] [address] Phone: tel: fax: Referral ID Status Reason Start Date Expiration Date Visits Requested Visits Authorized [id number] Authorized Specialty Services Required 4 [phone] Encounter Details Date Type Department Care Team (Late st Contact Info) Description 06/24/2024 3:00 PM EST Office Visit Plastic Surgery, [place] [address] [place] [address] Pratik Quinn MD [address] [place] [address] Malignant neoplasm of overlapping sites of left [...] or Pain, Severe. 90 Tablet 06/14/20 24 Active Additional Information Patient not taking.Reported [...] 1 08/14/2023 Food insecurity 05/31/2024 Overview: Per [facility] Protocol ASCUS with positive high [...] Date Smoking Tobacco: Never Smokeless Tobacco: Never Tobacco Cessation:Counseling Given: Not Answered Alcohol Use Standard Drinks/Week Comments Yes 0 [...] Sign Reading Time Taken Comments Blood Pressure 137/67 06/24/2024 3:07 PM EST Pulse 78 06/24/2024 3:07 PM EST Temperature 36.6 C (97.9 F) 06/24/2024 3:07 PM ES T Respiratory Rate 18 06/24/2024 3:07 PM EST Oxygen Saturation - - Inhaled Oxygen Concentration - - Weight 93.2 kg (205 lb 8 oz) 06/24/2024 3:07 PM EST Height 165.2 cm (5' 5.04") 06/24/2024 3:07 PM ES T Body Mass Index 34.16 06/24/2024 3:07 PM EST documented in this encounter Progress Notes * Pratik Quinn MD - 06/24/2024 9:04 PM EST [facility] Plastic and Reconstructive Surgery Clinic Evaluation Note New Patient Clinic Note aRdha Fung [id number] 1975 48 year old CC: Left side breast cancer Referring Provider: Dr. Lindsay Breast Surgeon: Dr. Lindsay HPI: Mrs. Fung is a 48 year old year old female who presents with her to the plastic andreconstructive surgery clinic for evaluation for breast reconstruction after mastectomy. She was diagnosed with Left breast cancer. She developed a "cyst" in December that she noticed and found it continued to enlarge while self monitoring. It continue to become painful as well. It is in the upper inner quadrant of the left breast. 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 She has continue her imaging and medical work up and recently had a skin biopsy over the massdue to thickening of the skin and concern for invasion. She has had a right sided port placed and is planning on completed 24 weeks of neoadjuvant therapy. Current Bra Size: DDD Desired Size After Reconstruction: Similar to smaller Family history of breast cancer: None Previous breast surgeries: None other than listed above. She is a Non-smoker, is not using any nicotine products, and is not currently taking steroids. She does intermittently smoke marijuana. Past Medical History: Diagnosis Date Abnormal Papanicolaou smear of cervix and cervical HPV Malignant neoplasm of overlapping sites of left breast in female, estrogen receptor negative (HCC) 06/14/2024 Other anxiety states Varicella without complication Past Surgical History: Procedure Laterality Date COLONOSCOPY, DIAGNOSTIC (RECTUM) 04/11/2023 hemorrhoids/recall 10 years/COLONOSCOPY FLEXIBLE PROXIMAL DIAGNOSTIC performed by Rajendra Leon MD at [facility] COLPOSCPY CERVIX W/BX AND EC 1997,1998 SURGICAL PROCEDURE ONLY Left 05/27/2024 Aspiration on left breast by Dr. Fawn Lindsay. VAGINAL DELIVERY ONLY times 3 Current Outpatient Medications Medication Sig Dispense Refill [...] Pain, Severe. (Patient not taking: Reported on 06/23/2024) 90 Tablet 0 diphenhydrAMINE HCl 25 MG Oral [...] of patient's allergies indicates: Allergen Reactions Vancomycin Social History Socioeconomic History Marital status: Significant [...] Stability Do you currently live in a nursing home or have no steady place to sleep [...] - for ages0-17 years): Not on file Family History Problem Relation Name Age of Onset Depression Mother No Known Problems Father No Known Problems Brother Diabetes Grandfather (Maternal) Heart Disorder Grandfather (Maternal) Ovarian cancer Grandmother (Paternal) No Known Problems Daughter No Known Problems Daughter No Known Problems Daughter Breast Cancer No significant family history ROS: denies fevers, chills, headache, chest pain, shortness of breath, abdominal pain, nausea, vomiting, constipation, diarrhea Physical Examination (Performed with respiratory care specialist, Provider requested respiratory care specialist. Name of respiratory care specialist: Aisha Lopez LPN) Filed Vitals: 06/24/24 1507 BP: 137/67 Pulse: 78 Resp: 18 Temp: 36.6 C (97.9 F) Weight: 93.2 kg (205 lb 8 oz) Height: 1.652 m (5' 5.04") Body mass index is 34.16 kg/m. body surface area is 2.07 meters squared. General: Awake, alert, no acute distress Breasts: bilateral breast hypertrophy, breast mass appreciate on upper inner quadrant of the left breast with sutures over the mass and consistent with the area of biopsy, no other masses noted, no lymphadenopathy, and breasts overall symmetric, SN-N BW N-IMF Ptosis Grade R 30.5 cm 15.5 cm 15.5 cm 2 L 29.5 cm 17 cm 15 cm 2 Abdomen: Excess tissue of the skin and abdomen with obese abdomen and abdominal panniculus. To the level of the pubis. No hernias evidemt. Imaging/Patho: PATHOLOGY Final Diagnosis A. Breast, Left, Fine [...] specimen is prepared for cell block at [facility] [place]. The cell block is submitted in cassette A1 and processed at [facility]. Prepared by: Formalin fixation time: 7 hours Performing Labs Monitoring And Evaluation Advisor screening performed at [facility]), [facility] [place] [address]. Pathologist sign out performed at [facility] ([facility]), [facility] [address]. 06/02/2024: Core needle biopsy of the Left [...] cells. ER is negative. 06/02/2024: SURGICAL PATHOLOGY: [id number] Component Final Diagnosis A. Breast, Left, left breast 11:00 9cm FN - palpable, core biopsy: Invasive ductal carcinoma, histologic grade 3, associated extensive necrosis Predictive markers ordered at 1024 Order Comments Enlarging complex solid and cystic mass left breast 11:00 concerning for malignancy Gross Description A. Breast, Left. Received in formalin with a container labeled with "Radha Fung", "[id number]", "1975" and "left breast, eleven o'clock, 9 [...] This test was developed and performed at [facility] and its performance characteristics determined by [employer]. It has not been cleared or approved [...] or malignancy of the cervix (as per [place] system) RADIOLOGY TEST RESULTS /IMAGES REVIEWED WITH THE PATIENT: 06/10/2024: MRI BREAST: 06/10/2024: MRI breasts showsMRI BREAST BILATERAL W WO CONTRAST History Malignant neoplasm of upper-inner quadrant of left breast in female, estrogen receptor negative (hcc) Family medical history includes ovarian cancer in grandmother (paternal). Technique MR (magnetic resonance) imaging was performed utilizing multiple sequences. Following the intravenous administration of gadolinium, dynamic scanning was performed. Kinetic analysis was evaluated withPipewise software. Films Compared 06/02/2024 US GUIDED BREAST [...] 0 - Incomplete: Needs Additional Imaging Evaluation. Assessment and Plan: 48 year old female with a large IDC of the left breast about 11:00 position, near the skin but no evident cancer cells on skin biopsy. We discussed many methods of reconstruction and the effects of radiation of the breast. She tentatively would like to undergo expansion and then plan for an autologous tissue transfer for breast reconstruction. If that remains the plan I will plan to place her expanders and perform her expansion and then refer to my partner, Dr. Ayala for microvascular reconstruction. I had an extensive discussion with the patient about breast reconstruction options, including no reconstruction, implant-based reconstruction, or autologous tissue reconstruction. We talked about therisks and benefits of each in general, and how her specific cancer and oncologic treatments effect the risk profile of each option. The discussion included, but was not limited to the followin. No reconstruction and use of prosthesis: this would be the fastest recovery, would require only one surgery, has been shown to have lower scores for satisfaction when compared to other reconstructive options, is a good option for sicker patients or those who are not concerned with having breastsafter surgery. 2. Implant-based reconstruction: this would involve the placement of tissue expanders at the same time as her mastectomy. I explained that tissue expanders are temporary breast implants that we are able to inject with fluid in the clinic. They allow us to stretch the skin to a desired volume. Afterreaching this volume and waiting for a period of time, she would be taken to the OR for a day procedure in which the expanders are removed and replaced with more permanent implants. The advantage of this option is that the second surgery is a day surgery with a short recovery. The disadvantage is that implants have a much higher complication rate if she were to have radiation, which includes capsular contracture and aesthetic deformity. Also, a natural ptotic breasts is more difficult to accomplish with implant based reconstruction. I discussed the risk of bleeding, infection, hematoma, seroma, poor scarring, wound dehiscence, mastectomy skin flap necrosis, pain, numbness, tissue compressor house operator failure, tissue compressor house operator exposure, capsular contracture, asymmetry, contour deformities, and need for further surgeries. I discussed that the implant will create a breast mound that sits higher on her chest than the contralateral side, and would be difficult to match a natural ptotic breast. I discussed the weekly visits to the office forfilling of the compressor house operator. I have also discussed the risk of anaplastic large cell lymphoma occurringaround the capsule of implants. I explained that this type of cancer is mostly associated with textured implants and expanders. I let her know that use smooth expanders and implants. 3. Autologous (own tissue) reconstruction: This would involve using her own tissue to reconstruct her breast or breasts. This can be done as a free tissue transfer or as a pedicled tissue transfer. The advantage of this reconstruction is that is often produces a more natural appearing breast with ptosis, there is no need for an implant, and we are able to replace radiated and damaged skin after radiation. The disadvantage and risks are a longer surgery (quoted 6-12 hours), admission to the ICU for monitoring post op, a longer hospitalization (average 2-3 days), a longer recovery, risk of partial or full flap loss, risk of fat necrosis, a second operative site, a risk of abdominal bulge/herni a/weakness, need for mesh and risk of wound dehiscence. I reinforced that the patient did not need to decide which type of reconstruction she ultimately desires at this time. I explained that if she decides to have breast reconstruction, the first step istissue compressor house operator placement. Once her final pathology and oncologic treatments are decided, we will then re-visit the options and have another discussion with more information to guide us. If she were to need radiation or chemotherapy, she is aware that any complications following tissue compressor house operator placement could delay this treatment. I also discussed that her final reconstruction would take place about 6 months after the completion of any radiation treatments. I explained the typical pre-operative, sudhir-operative, and post-operative course after tissue compressor house operator placement. I explained the compressor house operator can be placed below the muscle or above the muscle. This is usually determined at the time of the surgery based on the viability of the skin flaps. I explained that at the time of tissue compressor house operator placement, we often use an acellular dermal matrix (ADM) to helpus control the inferior and lateral position of the compressor house operator if under the muscle or to control the location of the compressor house operator if above the muscle. . It also allows us to expand the compressor house operator faster. I explained that the FDA recently deemed this an off label use of ADMs because no initial studies were done. I reassured her that they have been used in breast reconstruction for many years, but did let her know it is an off label use. We discussed the need for general anesthesia and the expectation that she could go home or stay for1 night in the hospital after surgery. I explained the post- operative recovery time, activity restrictions, and time to return back to normal activity. The patient is aware that she will have drains placed at the time of surgery (two in each breast pocket), and these would remain in until she is seen in the clinic post operatively. The patient is also aware that the quality of the skin flaps after mastectomy will be assessed in the operating room. If there is any question of vascular compromise, either more skin will need to be resected, or there is a chance she will not have tissue expanders placed at that time. I explained they could be placed in a delayed fashion if this were to happen. I explained the risks, benefits, and alternatives to tissue compressor house operator placement. The risks include, but are not limited to, bleeding, infection, pain, hematoma and/or seroma, delayed wound healing, wound dehiscence requiring compressor house operator removal , asymmetry, scarring and scar burden, thromboembolic complications including DVT and PE, and need for revision surgery. I explained that given the size and shape of her contralateral breast, she may benefit from an aesthetic standpoint from a contralateral procedure. We discussed the options of breast reduction. She will consider these options and understands she can decide to have a contralateral symmetry procedureat anytime during her reconstructive process. I reinforced the importance of a high protein diet pre-operatively and post- operatively while she is recovering to promote wound healing. The patient is also aware that any steroid use or smoking prior to her surgery will result in cancellation of her procedure. Photos were taken. I will order the appropriate tissue expanders for her breast/chest dimensions. Patient will require a PAT Clinic Appointment and Optimization Appointment. We will see her back at the completion of her neoadjuvant chemotherapy and further discuss/plan forreconstruction based upon her final unilateral or bilateral surgical oncology plan. Pratik Quinn MD, MPH Pediatric and Adult Plastic Surgeon [facility] Total time spent: 75 min Time spent counseling and coordination of care: 60 min documented in this encounter Plan of Treatment Upcoming Encounters Date Type Department Care Team (Late st Contact Info) Description 06/28/2024 9:20 AM EST Laboratory Laboratory [facility] [address] [place] [id number] [place] [address] Scenery [address] [place] [address] 06/28/2024 10:30 AM EST Hem/Onc Treatment Hematology/Oncology Treatment, [place] [address] [place] [phone] 06/29/2024 8:45 AM EST Nurse Only General Surgery, [facility] [address] [facility] [place] [address] [facility], Nurse Gen Surg [facility] [address] [facility] [place] [address] 07/02/2024 8:00 AM EST Imaging Radiology [facility] [address] [place] [address] 09/16/2024 8:00 AM EST Telemedicine Genetics [place], [place] [address] Sofia Eldridge, [place] [address] [place] [address] Scheduled Procedures Name Priority Associated Diagnoses Date/Ti me COLONOSCOPY FLEXIBLE PROXIMAL DIAGNOSTIC Recall Screen for colon cancer Scheduled Referrals Name Type Priority Associated Diagnoses Orde r Schedule PLASTIC SURGERY REFERRAL OP Referral Within 30 days (routine) Malignant neoplasm of upper-inner quadrant of left breast in female, estrogen receptor negative (HCC) Ordered: 06/15/2024 Health Maintenance Due Date Last Done Comments [...] this encounter Medical Devices Implanted Type Area Unhairer Device Identifier Shelf Expiration Date Model / Serial / Lot Mediport Power Mri 8fr [id number] - [id number] Implanted:Qty : 1 on 06/23/2024 by Rubén Hou MD at OR [facility] Right: Chest CR BARD : PERIPHERAL VASCULAR 06/19/2025 [id number] / / [id number] Port Implant W8f Poly Cath - [id number] Implanted:Qty : 1 on 06/23/2024 by Rubén Hou MD at OR [facility] CR BARD : PERIPHERAL VASCULAR [id number] 06/19/2025 [id number] / / [id number] documented as of this encounter Visit Diagnoses Diagnosis Malignant neoplasm of overlapping sites of left breast in female, estrogen receptor negative (HCC)- Primary documented in this encounter Care Teams Case Management Associate Relationship Specialty Start Date End Date Gordon Jewell Faye, EUGENIA [address] [place] [address] PCP - General Physician Manager Nicu 05/10/24 documented as of this encounter
--- OUTSIDE RECORDS SUMMARY | 2024-10-09 06:38 | External Medical Summary | Summary of Care ---
Author Name Unknown Organization [facility] Address [address] [facility] [place] [address] Phone [phone] Care Team Providers Care Office Machines Wirer Name Role Phone Jewell Leyva Faye BELLO Primary Care Provider [phone] Reason for Visit * Auth/Cert Specialty Diagnoses / Procedures Referred By Jacobo t Referred To Contact Diagnoses Malignant neoplasm of overlapping sites of left breast in female, estrogen receptor negative (HCC) Malignant neoplasm of overlapping sites of left breast in female, estrogen receptor negative (HCC) [C50.812, Z17.1] Procedures INSER TUNN ACC DEV;5 YRS/OLDER INSERT TUNNELED CENTRAL VENOUS ACCESS WITH SUBQ PORT Rubén Hou MD [address] [place] [address] Phone: tel: fax: OR [facility], Operating Room, [facility] - 4th Floor [address] [place] [address] Phone: tel: Referral ID Status Reason Start Date Expiration Date Visits Re quested Visits Authorized [id number] Encounter Details Date Type Department Care Team (Latest Contact Info) Description 06/23/2024 7:51 AM EST - 06/23/2024 10:26 AM EST Hospital Encounter [facility], Operating Room, [facility] - 4th Floor [address] [place] [address] Rubén Hou MD [address] [place] [address] Discharge Disposition: Home - Self Care Allergies Active Allergy Reactions Criticality Noted Date Comments Vancomycin Low 03/16/2022 documented as of this encounter (statuses as of 06/23/2024) Medications MULTIVITAMINS PO TABS one a day [...] as of this encounter (statuses as of 06/23/2024) Active Problems Problem Noted Date Diagnosed Date Malignant neoplasm of overla pping sites of left breast in female, estrogen receptor negative 06/14/2024 Encounter for antineoplastic chemotherapy 2023 Prevention of chemotherapy-induced neutropenia 1 08/14/2023 Food insecurity 05/31/2024 Overview: Per [facility] Protocol ASCUS with positive high risk HPV cervical 06/04 Major depressive disorder, r ecurrent severe without psychotic features 04/10/2023 Major depressive disorder, single episode, moder ate 06/07/2021 Encounter for other general counseling or advice on contraception 04/27/2010 Overview (04/20/2024): ICD-10 update of inactive term documented as of this encounter (statuses as of 06/23/2024) Resolved Problems Problem Noted Date Diagnosed Date Resolved Date Current mild episode of chente r depressive disorder without prior episode 08/19/2018 4 ABN PAP SMEAR-CERVIX 999 Encounter for supervision of other normal 05/28/2016 Overview (11/21/2015): ICD-10 update of inactive term documented as of this encounter (statuses as of 06/23/2024) Immunizations Name Administration Dates Next Due TD [...] Sign Reading Time Taken Comments Blood Pressure 119/83 06/23/2024 10:20 AM EST Pulse 66 06/23/2024 10:20 AM EST Temperature 36.2 C (97.2 F) 06/23/2024 10:[address] Respiratory Rate 16 06/23/2024 10:20 AM EST Oxygen Saturation 95% 06/23/2024 10:20 AM EST Inhaled Oxygen Concentration - - Weight 93.9 kg (207 lb) 06/23/2024 8:01 AM EST Height 168.9 cm (5' 6.5") 06/23/2024 8:01 AM EST Body Mass Index 32.91 06/23/2024 8:01 AM EST documented in this encounter Discharge Instructions * Discharge Instr - AVS* Rubén Hou MD - 06/23/2024 9:54 AM EST Discharge Date: 06/23/2024 Provider: Dr. Rubén Hou If you are experiencing any problems related to your procedure, please contact Interventional Radiology at [phone] during normal business hours: Friday- Friday 7:30 am - 4 pm. If a problem occursoutside of normal business hours, please call the hospital vac press operator at [phone] and ask for theInterventional Radiologist stoneworking belt sander. Contact scheduling for Interventional Radiology at [phone] during normal business hours: Friday-Friday, 7:30 am - 4 pm. The information below provides you with the instructions and the list of medications you need to betaking following discharge from the hospital. If you have any questions, please ask before leaving.Please carry this letter with you when you see your doctor in the clinic. If you have questions, you can reach us at the numbers above. SPECIAL INSTRUCTIONS Mediport Insertion (Implanted Central Venous Access) A Mediport is a sealed chamber covered by a silicone disc that is surgically placed in a pocket under the skin on the upper chest, just below the collarbone. This chamber connects to a flexible tube that goes into a large vein in the neck. The tip is near the heart. The port provides direct access to the bloodstream and can be used in drawing blood samples and giving intravenous fluids and medications. Some ports allow CT scan injections; these ports are referred to as "Power Ports." The port will be visible only as a small raised area beneath your skin. Home Care If you experience pain or discomfort at the site you may use a cold pack on the site and/or take acetaminophen (Tylenol) or your preferred pain medicine as directed. Avoid contact sports or any activity that may cause blunt force impact to the port area, as it may damage your port. Avoid strenuous activity for 24 to 48 hours after the procedure. Do not lift anything heavier than 10 pounds for 3 days after the procedure. Gradually increase your activity after 24 to 48 hours after the procedure. No dressing changes or wound care are needed at the insertion site. Your wound is closed with sutures on the inside and then sealed on the outside with a special "skin glue" called Dermabond (a surgical glue). Depending on your physician's preference, there may also be "steri strips" applied. It isvery important to let these special bandages fall off on their own. Please do not scrub or pull these bandages off. You may gently wash the area with soap and water. Depending on your physician's preference, there may also be gauze and Tegaderm (clear) bandage overthe Mediport insertion site. You may remove this bandage in 24 hours. You may shower in 24 hours. Gently wash the area and pat it dry. Please DO NOT take a bath, soak in a hot tub, or swim until the wound is completely healed. Your port must be accessed and flushed/heparinized every 30 days if it is not currently being used. When to Call Interventional Radiology Call Interventional Radiology right away if you have any of the following: Fever above 100 degrees Fahrenheit Increased bleeding, redness, swelling, warmth, or discharge at the incision site. Constant or increasing pain, numbness, coldness, or tingling around the incision area. Vomiting or nausea that does not go away If at any time you experience any of the following or feel you are having a medical emergency, [id number] for emergency assistance. Chest Pain Sudden, severe shortness of breath Rapid heart rate Sudden onset of weakness Do not smoke or use tobacco products in any way! If you feel suicidal or homicidal, please call the crisis hotline at [phone]-XZYD ([phone]) MODERATE SEDATION You may have received medication that made you comfortable/sedated you during your procedure. This is considered moderate sedation. This medication was given to relax you. You may also not remember having the procedure done. It may take up to 24 hours for this medication to be out of your system. Because of this, you should observe the following for the next 24 hours: Do not drink alcohol or take depressant drugs. Do not operate any type of machinery that requires hand-eye coordination. Do not sign any legal papers or documents. Do not make any financial decisions. You should be in the presence of an adult for the remainder of the day. If you are experiencing any problems related to your procedure, you should contact the Interventional Radiology physician unless otherwise directed. Driving: You may resume driving 1 day . Diet: You may resume your current diet as tolerated. Return to work or school: You may return to school or work 1 days after the procedure, unless otherwise instructed by the physician. documented in this encounter Progress Notes * Rubén Hou MD - 06/23/2024 9:54 AM EST [address] [address] OUTPATIENT SURGERY DISCHARGE SUMMARY NOTE Name: Radha Fung Location: OR [facility]/OR Date: 06/23/2024 Time: 9:54 AM Surgery Date: 06/23/2024 Procedure: INSERT TUNNELED CENTRAL VENOUS ACCESS WITH SUBQ PORT Right Surgeon: Rubén Hou MD Discharge Diagnosis: port placement After examination of this patient, I have determined she is ready for discharge to home when the patient meets criteria. Discharge instructions were given to the patient. documented in this encounter H&P Notes * Rubén Hou MD - 06/23/2024 7:49 AM EST HISTORY & PHYSICAL - Interventional Radiology Service [address] [address] Name: Radha Fung Location: OR [facility]/OR Date: 06/23/2024 Time: 7:49 AM CHIEF COMPLAINT: Port placement HISTORY OF PRESENT ILLNESS: Left breast cancer upper inner with skin thickening Past Medical History: Diagnosis Date Abnormal Papanicolaou smear of cervix and cervical HPV Malignant neoplasm of overlapping sites of left breast in female, estrogen receptor negative (HCC) 06/14/2024 Other anxiety states Varicella without complication Past Surgical History: Procedure Laterality Date COLONOSCOPY, DIAGNOSTIC (RECTUM) 04/11/2023 hemorrhoids/recall 10 years/COLONOSCOPY FLEXIBLE PROXIMAL DIAGNOSTIC performed by Rajendra Leon MD at [facility] COLPOSCPY CERVIX W/BX AND EC 1997,1998 SURGICAL [...] Stability Do you currently live in a [place] or have no steady place to sleep [...] Daughter Breast Cancer No significant family history Review of patient's allergies indicates: Allergen Reactions Vancomycin No current facility-administered medications for this encounter. Current Outpatient Medications Medication Sig Dispense Refill diphenhydrAMINE HCl 25 MG Oral Tablet (Benadryl) Take by mouth 1 Capsule 12 hours prior to paclitaxel infusion. 12 Tablet 0 Famotidine 20 MG Oral Tablet (Pepcid) Take by mouth 1 Tablet 12 hours prior to paclitaxel infusion.12 Tablet 0 Lidocaine-Prilocaine 2.5-2.5 % External Cream (Emla) APPLY TO SKIN OVER MEDIPORT & COVER 1HR PRIOR TO ACCESSING. 30 g 1 Loratadine 10 MG Oral Tablet (Claritin) Take 1 tablet by mouth daily x5 days starting the day of chemotherapy 40 Tablet 0 Ondansetron HCl 8 MG Oral Tablet (Zofran) Take 1 Tablet by mouth every 8 hours as needed for Nausea. 30 Tablet 3 Prochlorperazine Maleate 10 MG Oral Tablet (Compazine) Take 1 Tablet by mouth every 6 hours as needed for Nausea. 30 Tablet 5 Amoxicillin-Pot Clavulanate 875-125 MG Oral Tablet (Augmentin) Take 1 Tablet by mouth in the morning and 1 Tablet before bedtime. 28 Tablet 0 oxyCODONE-Acetaminophen 5-325 MG Oral Tablet (Percocet) Take 2 Tablets by mouth every 6 hours as needed for Pain, Mild, Pain, Moderate or Pain, Severe. (Patient not taking: Reported on 06/22/2024) 90 Tablet 0 PARoxetine HCl 40 MG Oral Tablet (pAXil) Take 1 Tablet by mouth in the morning. 90 Tablet 1 Nitroglycerin 0.2% rectal ointment Administer into the rectum 2 times a day. (Patient not taking: Reported on 06/22/2024) 20 g 3 ALPRAZolam 0.25 MG Oral Tablet (xaNAX) Take by mouth 1 Tablet in the morning AND 1 Tablet at noon AND 1 Tablet before bedtime. As needed for anxiety. (Patient not taking: Reported on 06/22/2024) 30 Tablet 1 MULTIVITAMINS PO TABS one a day REVIEW OF SYSTEMS: Constitutional: (-) fever chills sweats or weight loss Cardiovascular: (-) negative: no chest pain, dyspnea, syncope, or palpitations Pulmonary: (-) negative: no cough, wheezing, or shortness of breath Abdominal/GI: (-) negative: no pain, heartburn, dysphagia, bleeding, change in bowel habits, nauseaor vomiting OBJECTIVE: There were no vitals taken for this visit. PHYSICAL EXAM: Constitutional: no acute distress CV: normal rate and rhythm, no murmur, gallops or rub Chest: normal respiratory effort, lungs clear to auscultation and percussion, breath sounds normal Abdomen: normal: soft, bowel sounds normal, no masses, tenderness or organomegaly LABS: CBC Results: PT INR Results: Results for orders placed or performed in visit on 06/14/24 PT INR Result Value Ref Range Prothrombin Time 13.4 11.6 - 15.2 seconds INR 1.0 0.8 - 1.2 BUN Results: Lab Results Component Value Date/Time BUN - [facility] 19 06/14/2024 12:50 PM BUN - [facility] 15 06/11/2021 09:32 AM BUN - [facility] 18 09/21/2020 07:56 AM BUN - [facility] 14 05/01/2017 12:58 PM BUN - [facility] 17 02/02/2015 02:49 PM BUN - [facility] 17 12/06/2011 04:31 PM Creatinine Results: Lab Results Component Value Date/Time CREATININE - [facility] 0.9 06/14/2024 12:50 PM CREATININE - [facility] 0.83 04/10/2023 12:00 AM CREATININE - [facility] 0.8 06/11/2021 09:32 AM CREATININE - [facility] 0.9 09/21/2020 07:56 AM CREATININE - [facility] 0.9 05/01/2017 12:58 PM CREATININE - [facility] 0.7 02/02/2015 02:49 PM CREATININE - [facility] 0.7 12/06/2011 04:31 PM Potassium Results: Lab Results Component Value Date/Time POTASSIUM - [facility] 4.0 06/14/2024 12:50 PM POTASSIUM - [facility] 3.9 04/10/2023 12:00 AM POTASSIUM - [facility] 4.4 06/11/2021 09:32 AM POTASSIUM - [facility] 4.5 09/21/2020 07:56 AM POTASSIUM - [facility] 4.6 05/01/2017 12:58 PM POTASSIUM - [facility] 4.1 02/02/2015 02:49 PM POTASSIUM - [facility] 3.8 12/06/2011 04:31 PM INFORMED CONSENT: Yes PRE-SEDATION ASSESSMENT IMPRESSION/PLAN: Port placement Rubén Hou MD documented in this encounter Nursing Notes * Margoth Beal RN - 06/23/2024 9:23 AM EST Pt condition was reassessed by Dr. Rubén Hou immediately prior to start of moderate sedation and procedure. * Nilesh Leyva RN - 06/23/2024 8:20 AM EST Patient or the Patients Legally Authorized Hvac Sheet Metal Installer Helper has been advised that (1) the Patient meets criteria for testing and (2) the administration of anesthesia, radiation or other imaging agents may have a harmful impact to an unborn child. The Patient or Patients Representativewere offered the opportunity to ask questions as to necessity of such testing and potential outcomes. Consent for testing has been declined. Nilesh Leyva RN 06/23/2024 8:20 AM documented in this encounter OR Notes * OR Surgeon - Rubén Hou MD - 06/23/2024 10:26 AM EST Procedure: chest medical port placement INDICATION: central intravenous access needed for chemotherapy.] ATTENDING (OPERATING PHYSICIAN): [Savi] CONSENT: After a detailed discussion of the procedure, risks, benefits and alternative treatment options, informed consent was obtained. TIME OUT: A time out procedure was performed. The patient's identification was verified. Informed consent with agreement of procedure, site and position was obtained. All necessary equipment was available prior to procedure. CONTRAST: No contrast was administered. COMPLICATIONS: None. ANESTHESIA: [Local lidocaine.] [IV Versed.] [IV Fentanyl.] SEDATION TIME: [Start to end: [[id number]]. Qualified nurse sedation observer [SHY Dockery.] MEDICATIONS: See ANIRUDH PROCEDURE DESCRIPTION: The [right] neck and chest were prepped and draped in the usual sterile fashion. After local anesthesia, a small incision was made at the site of venous access in the neck. Using real-time ultrasound guidance, the internal jugular vein was punctured with a micro puncture needle. Digital ultrasound images were acquired and digitally archived. A wire and sheath were used to secure access to the internal jugular vein access using fluoroscopic guidance. [A second incision was made in the upper chest and a pocket was created. The medical port catheter was tunneled from the pocket to the venotomy site. A peel- away sheath was placed through the venotomy over the wire and the catheter was advanced through a peel-away sheath and positioned under fluoroscopic guidance. The catheter was then measured to [23] cm, cut, and attached to a power injectable port.] Once the medical port and catheter were in satisfactory position, the medical port was accessed, had appropriate blood return, and easily flushed and was locked with dilute heparin. [The incision wasthen closed in layers with absorbable sutures and tissue adhesive.] The venotomy site was closed with [absorbable suture and] tissue adhesive. I personally performed the procedure. Findings: Ultrasound shows an anechoic and compressible [right] internal jugular vein. The medical port is inthe upper chest with the catheter tip at the [right atrium] Impression: Successful placement of a chest power injectable medical port. * Operative Report Brief - Rubén Hou MD - 06/23/2024 9:52 AM EST PROCEDURE NOTE - Interventional Radiology [facility]-[address] [address] Name: Radha Fung Location: [facility]/OR Date: 06/23/2024 Time: 9:52 AM PROCEDURE: port placement INTERNET CONSULTANT: Dr. Rubén Hou ASSISTANTS: none ANESTHESIA: local conscious sedation COMPLICATIONS: none SPECIMEN: none ESTIMATED BLOOD LOSS: negligible FINDINGS: right IJ patent documented in this encounter Miscellaneous Notes * Sedation Note - Rubén Hou MD - 06/23/2024 9:54 AM EST Post Sedation Evaluation: Cardiovascular status: acceptable Level of consciousness: awake and alert Airway patency: patent Distress - NAD Hydration status - well hydrated Nausea/vomiting - not present Pain Evaluation Pain Assessment Flowsheet Row Most Recent Value Pain Assessment Scale [facility] Scale 0-10 Pain Score 0 (no pain) Vital Signs: Temp: 36.2 C (97.2 F) (06/23 801) BP: 133/75 (06/23 942) Pulse: 64 (06/23 942) Resp: 12 (06/23 942) SpO2: 97 % (06/23 942) I have personally examined the patient, prescribed the necessary medications as charted, and certify that Radha Fung is recovered for safe discharge from my face to face care. * Pre-Sedation Assessment - Rubén Hou MD - 06/23/2024 8:36 AM EST PRE-SEDATION ASSESSMENT PRE-SEDATION ASSESSMENT: Port Placement Level of sedation planned: Moderate Patient's allergies reviewed: Yes H&P Review / Interval Note Documentation: There is no H&P on file. Difficulty with sedation / anesthesia: No Sleep apnea: No History of snoring: No History of difficult intubation: No Decreased ROM neck flexion/extension: No Tracheal deviation: No Decreased ability to open mouth / TMJ: No Loose teeth / dentures / partial: No Congenital deformities / abnormalities: No Dysphagia: No Mallampati Classification: II - soft palate, uvula, fauces visible Chest: Clear Heart: Regular Rhythm Adequate Vascular Access: Yes ASA Risk Stratification (Select One): ASA 1 - Healthy The patient was identified and the procedure verified: Yes The patient was reevaluated immediately prior to the sedation: 06/23/2024 8:37 AM documented in this encounter Plan of Treatment Upcoming Encounters Date Type Department Care Team (Late st Contact Info) Description 06/24/2024 3:00 PM EST Office Visit Plastic Surgery, [place] [address] [place] [address] Pratik Quinn MD [address] [place] [address] 06/28/2024 9:20 AM EST Laboratory Laboratory [facility] [place] [address] [facility] [place] [id number] [place], Lab [address] [facility] [place] [address] 06/28/2024 10:30 AM EST Hem/Onc Treatment Hematology/Oncology Treatment, [place] [address] [place] [address] 06/29/2024 8:45 AM EST Nurse Only General Surgery, Zulma Nguyen [place] [address] [facility] [place] [address] Nguyen, Nurse Gen Surg [place] [address] [facility] [place] [id number] 07/02/2024 8:00 AM EST Imaging Radiology [facility] [address] [facility] [place] [address] 09/16/2024 8:00 AM EST [facility] [address] [place] [address] Sofia [place], [place] [facility] [place] [id number] Scheduled Procedures Name Priority Associated Diagnoses Date/Ti me INSERT TUNNELED CENTRAL VENOUS ACCESS WITH SUBQ PORT Malignant neoplasm of overlapping sites of left breast in female, estrogen receptor negative (HCC) 06/23/2024 9:06 AM EST COLONOSCOPY FLEXIBLE PROXIMAL DIAGNOSTIC Recall [...] this encounter Medical Devices Implanted Type Area Foundry Tender Device Identifier Shelf Expiration Date Model / Serial / Lot Mediport Power Mri 8fr [id number] - [id number] Implanted:Qty : 1 on 06/23/2024 by Rubén Hou MD at OR [facility] Right: Chest CR BARD : PERIPHERAL VASCULAR 06/19/2025 [id number] / / [id number] Port Implant W8f Poly Cath - [id number] Implanted:Qty : 1 on 06/23/2024 by Rubén Hou MD at OR [facility] CR BARD : PERIPHERAL VASCULAR [id number] 06/19/2025 [id number] / / [id number] documented as of this encounter Procedures Procedure Name Priority Date/Time Associated Diagnosis Comments IR INTERVENTIONAL RADIOLOGY PROCEDURE IN OR Routine 06/23/2024 9:59 AM EST documented in this encounter Results * IR INTERVENTIONAL RADIOLOGY PROCEDURE IN OR (06/23/2024 9:59 AM EST) 06/23/2024 11:0 4 AM EST Impressions [facility] - 06/23/2024 11:02 AM EST IMPRESSION: Successful placement of a chest power injectable medical port. Narrative [facility] - 06/23/2024 11:02 AM EST PROCEDURE: chest medical port placement INDICATION: central intravenous access needed for chemotherapy. ATTENDING (OPERATING PHYSICIAN): Savi CONSENT: After a detailed discussion of the procedure, risks, benefits and alternative treatment options, informed consent was obtained. TIME OUT: A time out procedure was performed. The patient's identification was verified. Informed consent with agreement of procedure, site and position was obtained. All necessary equipment was available prior to procedure. CONTRAST: No contrast was administered. COMPLICATIONS: None. ANESTHESIA: Local lidocaine. IV Versed. IV Fentanyl. SEDATION TIME: Start to end: [id number]. Qualified nurse sedation observer SHY Beal. MEDICATIONS: See [facility] PROCEDURE DESCRIPTION: The right neck and chest were prepped and draped in the usual sterile fashion. After local anesthesia, a small incision was made at the site of venous access in the neck. Using real-time ultrasound guidance, the internal jugular vein was punctured with a micro puncture needle. Digital ultrasound images were acquired and digitally archived. A wire and sheath were used to secure access to the internal jugular vein access using fluoroscopic guidance. A second incision was made in the upper chest and a pocket was created. The medical port catheter was tunneled from the pocket to the venotomy site. A peel-away sheath was placed through the venotomy over the wire and the catheter was advanced through a peel-away sheath and positioned under fluoroscopic guidance. The catheter was then measured to 23 cm, cut, and attached to a power injectable port. Once the medical port and catheter were in satisfactory position, the medical port was accessed, had appropriate blood return, and easily flushed and was locked with dilute heparin. The incision was then closed in layers with absorbable sutures and tissue adhesive. The venotomy site was closed with absorbable suture and tissue adhesive. I personally performed the procedure. FINDINGS: Ultrasound shows an anechoic and compressible right internal jugular vein. The medical port is in the upper chest with the catheter tip at the right atrium Procedure Note Rubén Hou MD - 06/23/2024 PROCEDURE: chest medical port placement INDICATION: central intravenous access needed for chemotherapy. ATTENDING (OPERATING PHYSICIAN): Savi CONSENT: After a detailed discussion of the procedure, risks, benefits andalternative treatment options, informed consent was obtained. TIME OUT: A time out procedure was performed. The patient's identificationwas verified. Informed consent with agreement of procedure, site andposition was obtained. All necessary equipment was available prior toprocedure. CONTRAST: No contrast was administered. COMPLICATIONS: None. ANESTHESIA: Local lidocaine. IV Versed. IV Fentanyl. SEDATION TIME: Start to end: [phone]. Qualified nurse sedation SHY Olmedo. MEDICATIONS: See [facility] PROCEDURE DESCRIPTION: The right neck and chest were prepped and draped inthe usual sterile fashion. After local anesthesia, a small incision wasmade at the site of venous access in the neck. Using real-timeultrasound guidance, the internal jugular vein was punctured with a micropuncture needle. Digital ultrasound images were acquired and digitallyarchived. A wire and sheath were used to secure access to the internaljugular vein access using fluoroscopic guidance. A second incision was made in the upper chest and a pocket was created.The medical port catheter was tunneled from the pocket to the venotomysite. A peel-away sheath was placed through the venotomy over the wire andthe catheter was advanced through a peel-away sheath and positioned underfluoroscopic guidance. The catheter was then measured to 23 cm, cut, andattached to a power injectable port. Once the medical port and catheter were in satisfactory position, themedical port was accessed, had appropriate blood return, and easilyflushed and was locked with dilute heparin. The incision was then closedin layers with absorbable sutures and tissue adhesive. The venotomy sitewas closed with absorbable suture and tissue adhesive. I personally performed the procedure. FINDINGS: Ultrasound shows an anechoic and compressible right internal jugular vein.The medical port is in the upper chest with the catheter tip at the rightatrium IMPRESSION IMPRESSION: Successful placement of a chest power injectable medical port. Rubén Hou MD RAD SPECIAL PROCEDURES Final Res ult Performing Organization Address City/State/ZIP Co pr Phone Number [facility] documented in this encounter Administered Medications Inactive Administered Medications - up to 3 most recent administrations Medication Order MAR Action Action Date Dose Rate Site ceFAZolin in dextrose (Ancef) ivpb 2 g 2 g, IV Piggyback, ONCE, 1 dose, On Fri06/23/24 at 0945 New Bag 06/23/2024 9:28 AM EST 2 g 100 mL/hr Hand Left chlorhexidine gluconate cloth 2 % pad 1 Pad 1 Pad, External, ONCE, On Fri06/23/24 at 0845, For 1 dose, As applicable by procedure for patients 2 months and older unless contraindicated., Pre-Op Given 06/23/2024 8:45 AM EST 1 Pad Isolyte-S pH 7.4 infusion Intravenous, at 25 mL/hr, All Patients EXCEPT Dialysis patients Plasma-LYTE 148, isolyte-S, and isolyte-S pH 7.4 are considered equivalent - including for MAR barcode scanning., CONTINUOUS, Starting on Fri06/23/24 at 0845, Until Fri06/23/24 at 1426, Pre-Op New Bag 06/23/2024 8:34 AM EST 25 mL/hr 25 mL/hr Povidone-Iodine nasal swab 1 Swab 1 Swab, Nasal, ONCE, On Fri06/23/24 at 0845, For 1 dose, Administer as per senior manufacturing technician instructions unless contraindicated., Pre-Op Given 06/23/2024 8:45 AM EST 1 Swab documented in this encounter Active and Recently Administered Medications Times are shown in EST. Scheduled Medication Order 06/21/2024 06/22/2024 06/23/2024 ceFAZolin in dextrose (Ancef) ivpb 2 g (COMPLETED) 2 g, IV Piggyback, ONCE, 1 dose, On Fri06/23/24 at 0945 0928 (New Bag - Prov ider: Baljeet Israel RN) chlorhexidine gluconate cloth 2 % pad 1 Pad (COMPLETED) 1 Pad, External, ONCE, On Fri06/23/24 at 0845, For 1 dose, As applicable by procedure for patients 2 months and older unless contraindicated., Pre-Op 0845 (Given - Provid er: Nilesh Leyva RN) Povidone-Iodine nasal swab 1 Swab (COMPLETED) 1 Swab, Nasal, ONCE, On Fri06/23/24 at 0845, For 1 dose, Administer as per senior manufacturing technician instructions unless contraindicated., Pre-Op 0845 (Given - Provid er: Nilesh Leyva RN) Continuous Medication Order 06/21/2024 06/22/2024 06/23/2024 Isolyte-S pH 7.4 infusion Intravenous, at 25 mL/hr, All Patients EXCEPT Dialysis patients Plasma-LYTE 148, isolyte-S, and isolyte-S pH 7.4 are considered equivalent - including for MAR barcode scanning., CONTINUOUS, Starting on Fri06/23/24 at 0845, Until Fri06/23/24 at 1426, Pre-Op 0834 (New Bag - Prov ider: Nilesh Leyva RN) PRN Medication Order 06/21/2024 06/22/2024 06/23/2024 buffered lidocaine 1 % inj (CANCELED) ONCE PRN INTRA PROCEDURE, Starting on Fri06/23/24 at 0935, Until Fri06/23/24 at 0946, Intra-Op 0935 (Given - Provid er: Rubén Hou MD) fentaNYL (PF) inj (CANCELED) ONCE PRN INTRA PROCEDURE, Starting on Fri06/23/24 at 0924, Until Fri06/23/24 at 0946, Intra-Op 0924 (Given - Provid er: Baljeet Israel RN) hEParin lock FLUSH 10 UNIT/ML inj (CANCELED) ONCE PRN INTRA PROCEDURE, Starting on Fri06/23/24 at 0936, Until Fri06/23/24 at 0946, Intra-Op 0936 (Given - Provid er: Rubén Hou MD) midazolam (Versed) 2 MG/2ML inj (CANCELED) ONCE PRN INTRA PROCEDURE, Starting on Fri06/23/24 at 0924, Until Fri06/23/24 at 0946, Intra-Op 0924 (Given - Provid er: Baljeet Israel RN) documented in this encounter Care Teams Office Machines Wirer Relationship Specialty Start Date End Date Codieoctober EUGENIA Zuniga [address] [place], [place] [address] PCP - General Physician International Sales Representative 05/10/24 documented as of this encounter
--- OUTSIDE RECORDS SUMMARY | 2024-10-09 06:38 | External Medical Summary ---
Author Name Unknown Address Unknown Organization K01:LABOR[facility]ORY [facility] - [address] [facility] [address] Laboratory Report Ordering Provider Test Date Status SARAGENE 06/28/2024 09:10:15 Final Observation Date Value Abnormality Reference (Units ) Status TSH 06/28/2024 09:10:15 1.54 0.27-4.20 (uIU/mL) Final Performing Location LAB[facility] - [address] [facility] [address]
--- OUTSIDE RECORDS SUMMARY | 2024-10-09 06:38 | External Medical Summary | Summary of Care ---
Author Name Unknown Organization [facility] Address [address] [facility] [place] [address] Phone [phone] Care Team Providers Care Manager Truck Name Role Phone Jewell Leyva EUGENIA Primary Care Provider [phone] Encounter Details Date Type Department Care Team (Late st Contact Info) Description 06/24/2024 Telephone General Surgery, [facility] [address] [place] [address] Fawn Lindsay MD [address] [place] [address] Allergies Active Allergy Reactions Criticality Noted Date [...] immediate reconstruction at time of mastectomy (tissue monogram operator likely as will need post mastectomy radiation). Dr. Quinn - has an appt with you later today. FYI documented in this encounter Plan of Treatment Upcoming Encounters Date Type Department Care Team (Late st Contact Info) Description 06/24/2024 3:00 PM EST Office Visit Plastic Surgery, [place] [address] [place] [address] Pratik Quinn MD [address] [place] [address] 06/28/2024 9:20 AM EST Laboratory Laboratory [facility] [address] [place] [phone] [place], Lab Scenery [address] [place] [address] 06/28/2024 10:30 AM EST Hem/Onc Treatment Hematology/Oncology Treatment, [place] [address] [place] [phone] 06/29/2024 8:45 AM EST Nurse Only General Surgery, [facility] [address] [facility] [place] [address] Nguyen, Nurse Gen Surg [facility] [address] 07/02/2024 8:00 AM EST Imaging Radiology [facility] [address] [place] [address] 09/16/2024 8:00 AM EST Telemedicine Genetics [facility], [facility] [address] [place] [address] Chente Sofia Jasmine, MS [address] [place] [address] Scheduled Procedures Name Priority Associated Diagnoses Date/Ti [...] this encounter Medical Devices Implanted Type Area Welder Operator Device Identifier Shelf Expiration Date Model / Serial / Lot Mediport Power Mri 8fr [id number] - [id number] Implanted:Qty : 1 on 06/23/2024 by Rubén Hou MD at OR [facility] Right: Chest CR BARD : PERIPHERAL VASCULAR 06/19/2025 [id number] / / [id number] Port Implant W8f Poly Cath - [id number] Implanted:Qty : 1 on 06/23/2024 by Rubén Hou MD at OR [facility] CR BARD : PERIPHERAL VASCULAR [id number] 06/19/2025 [id number] / / [id number] documented as of this encounter Care Teams Manager Truck Relationship Specialty Start Date End Date Codieoctober EUGENIA Mckinney [address] [facility] [place] [address] PCP - General Physician Casting Wheel Operator 05/10/24 documented as of this encounter
--- OUTSIDE RECORDS SUMMARY | 2024-10-09 06:38 | External Medical Summary | Summary of Care ---
Author Name Unknown Organization [facility] Address [address] [facility] [place] [address] Phone [phone] Care Team Providers Care Meat Hostess Name Role Phone Gordon Jewell Faye EUGENIA Primary Care Provider [phone] Reason for Visit * Reason Comments Follow Up Office Procedure Pt presents for offi ce procedure, wanting to discuss some things prior to procedure. Encounter Details Date Type Department Care Team (Late st Contact Info) Description 06/22/2024 8:00 AM EST Office Visit General Surgery, [facility] [address] [place] [address] Fawn Lindsay MD [address] [place] [address] Malignant neoplasm of upper-inner quadrant of left [...] Start Date End Date Status lidocaine-epinephrine 2 %-1:985846 inj 200 mgIndications:Malignant neoplasm of upper-inner quadrant [...] 1 08/14/2023 Food insecurity 05/31/2024 Overview: Per [facility] Protocol ASCUS with positive high [...] nodes. Will order US biopsy and avery technical training coordinator placement into left axillary node. Will need [...] 06/23/2024 9:00 AM EST Hospital Encounter OR [facility], Operating Room, [facility] - 4th Floor [address] [place] [address] Rubén Hou MD [address] [facility] [place] [address] 06/23/2024 9:00 AM EST - 06/23/2024 9:56 AM EST Surgery OR [facility], Operating Room, [facility] - 4th Floor [address] [place] [address] Rubén Hou MD [address] [place] [address] INSERT TUNNELED CENTRAL VENOUS ACCESS WITH SUBQ PORT 06/24/2024 3:00 PM EST Office Visit Plastic Surgery, [place] [address] [place] [address] Pratik Quinn MD [address] [place] [address] 06/28/2024 9:20 AM EST Laboratory Laboratory [facility] [address] [facility] [place] [phone] Rayna Lab [facility] 200 [facility] [place] [address] 06/28/2024 10:30 AM EST Hem/Onc Treatment Hematology/Oncolog y Treatment, [place] [address] [place] [phone] 06/29/2024 8:45 AM EST Nurse Only General Surgery, [facility] [place] [address] [facility] [place] [address] Nurse Patrick Gen Surg [facility] 132 [facility] [place] [address] 09/16/2024 8:00 AM EST Telemedicine Genetics HemOnc, [facility] [address] [place] [address] Sofia Eldridge, MS [address] [place] [address] Pending Results Name Type Priority Associated Diagnoses [...] Action Date Dose Rate Site lidocaine-epinephrine 2 %-1:433129 inj 200 mg 200 mg (10 mL), Subcutaneous, ONCE, On Fri06/22/24 at 1015, For 1 doseIndications:Malignant neoplasm of upper-inner quadrant of left breast in female, estrogen receptor negative (HCC) Given 06/22/2024 11:08 AM EST 200 [address] east Left documented in this encounter Care Teams Meat Hostess Relationship Specialty Start Date End Date GordonOctober EUGENIA Mckinney [address] [place] [address] PCP - General Physician Plastics Fitter 05/10/24 documented as of this encounter
--- OUTSIDE RECORDS SUMMARY | 2024-10-09 06:38 | External Medical Summary | Summary of Care ---
Author Name Unknown Organization [facility] Address [address] [place] [place] [place] [address] Phone [phone] Care Team Providers Care Chest Painting And Sealing Supervisor Name Role Phone Gordon Jewell Faye EUGENIA Primary Care Provider [phone] Reason for Visit * Reason Comments Follow Up Office Procedure Pt presents for offi ce procedure, wanting to discuss some things prior to procedure. Encounter Details Date Type Department Care Team (Late st Contact Info) Description 06/22/2024 8:00 AM EST Office Visit General Surgery, [facility] [address] [place] [address] Fawn Lindsay MD [address] [place] [address] Malignant neoplasm of upper-inner quadrant of left [...] Start Date End Date Status lidocaine-epinephrine 2 %-1:523964 inj 200 mgIndications:Malignant neoplasm of upper-inner quadrant [...] 1 08/14/2023 Food insecurity 05/31/2024 Overview: Per [facility] Protocol ASCUS with positive high [...] nodes. Will order US biopsy and avery drill runner helper placement into left axillary node. Will need [...] 06/23/2024 9:00 AM EST Hospital Encounter OR [facility], Operating Room, [facility] - 4th Floor [address] [place] [address] Rubén Hou MD [address] [facility] [place] [address] 06/23/2024 9:00 AM EST - 06/23/2024 9:56 AM EST Surgery OR [facility], Operating Room, [facility] - 4th Floor [address] [place] [address] Rubén Hou MD [address] [facility] [place] [address] INSERT TUNNELED CENTRAL VENOUS ACCESS WITH SUBQ PORT 06/24/2024 3:00 PM EST Office Visit Plastic Surgery, [place] [address] [place] [address] Pratik Quinn MD [address] [place] [address] 06/28/2024 9:20 AM EST Laboratory Laboratory [facility] 200 [facility] [place] [phone] Rayna Lab [facility] 200 [facility] [place] [address] 06/28/2024 10:30 AM EST Hem/Onc Treatment Hematology/Oncolog y Treatment, [place] [address] [place] [phone] 06/29/2024 8:45 AM EST Nurse Only General Surgery, [place] [facility] [place] [address] [facility] [place] [address] Nurse Patrick Gen Surg [facility] [place] [address] 09/16/2024 8:00 AM EST Telemedicine Genetics HemOnc, [facility] [address] [place] [address] Sofia Eldridge, MS [address] [place] [address] Pending Results Name Type Priority Associated Diagnoses [...] Action Date Dose Rate Site lidocaine-epinephrine 2 %-1:542326 inj 200 mg 200 mg (10 mL), Subcutaneous, ONCE, On Fri06/22/24 at 1015, For 1 doseIndications:Malignant neoplasm of upper-inner quadrant of left breast in female, estrogen receptor negative (HCC) Given 06/22/2024 11:08 AM EST 200 mg [address] east Left documented in this encounter Care Teams Chest Painting And Sealing Supervisor Relationship Specialty Start Date End Date GordonOctober EUGENIA Mckinney [address] [place] [address] PCP - General Physician Electric Wirer 05/10/24 documented as of this encounter
--- OUTSIDE RECORDS SUMMARY | 2024-10-09 06:38 | External Medical Summary | Summary of Care ---
Author Name Unknown Organization [facility] Address [address] [place] [place] [facility] [place] [address] Phone [phone] Care Team Providers Care Packing Machine Can Feeder Name Role Phone Gordon Jewell Faye EUGENIA Primary Care Provider [phone] Reason for Visit * Reason Comments Follow Up Office Procedure Pt presents for offi ce procedure, wanting to discuss some things prior to procedure. Encounter Details Date Type Department Care Team (Late st Contact Info) Description 06/22/2024 8:00 AM EST Office Visit General Surgery, [facility] [address] [place] [address] Fawn Lindsay MD [address] [place] [address] Malignant neoplasm of upper-inner quadrant of left [...] Start Date End Date Status lidocaine-epinephrine 2 %-1:450063 inj 200 mgIndications:Malignant neoplasm of upper-inner quadrant of left breast in female, estrogen receptor negative (HCC) 200 mg SC ONCE 06/22/2024 06/22/2024 Active documented as of this encounter (statuses as of 06/22/2024) Active Problems Problem Noted Date Diagnosed Date Malignant neoplasm of overla pping sites of left breast in female, estrogen receptor negative 06/14/2024 Encounter for antineoplastic chemotherapy 2023 Prevention of chemotherapy-induced neutropenia 1 08/14/2023 Food insecurity 05/31/2024 Overview: Per [facility] Protocol ASCUS with positive high risk [...] nodes. Will order US biopsy and avery contact officer placement into left axillary node. Will need [...] 06/23/2024 9:00 AM EST Hospital Encounter OR [facility], Operating Room, [facility] - 4th Floor [address] [place] [address] Rubén Hou MD 400 [facility] [place] [address] 06/23/2024 9:00 AM EST - 06/23/2024 9:56 AM EST Surgery OR [facility], Operating Room, [facility] - 4th Floor [address] [place] [address] Rubén Hou MD [address] [facility] [place] [address] INSERT TUNNELED CENTRAL VENOUS ACCESS WITH SUBQ PORT 06/24/2024 3:00 PM EST Office Visit Plastic Surgery, [place] [address] [place] [address] Pratik Quinn MD [address] [place] [address] 06/28/2024 9:20 AM EST Laboratory Laboratory [facility] 200 [place] [phone] Rayna [facility] [address] [facility] [place] [address] 06/28/2024 10:30 AM EST Hem/Onc Treatment Hematology/Oncolog y Treatment, [place] [address] [place] [phone] 06/29/2024 8:45 AM EST Nurse Only General Surgery, [place] [facility] [place] [address] [facility] [place] [address] Nurse Patrick Gen Surg [facility] 132 [facility] [place] [address] 09/16/2024 8:00 AM EST Telemedicine Genetics HemOnc, [facility] [address] [place] [address] Sofia Eldridge, MS [address] [place] [address] Pending Results Name Type Priority Associated Diagnoses [...] (HCC) documented in this encounter Care Teams Packing Machine Can Feeder Relationship Specialty Start Date End Date Jewell Leyva PA-C [address] [place] [address] PCP - General Physician Engagement Manager 05/10/24 documented as of this encounter
--- OUTSIDE RECORDS SUMMARY | 2024-10-09 06:38 | External Medical Summary | Summary of Care ---
Author Name Unknown Organization [facility] Address [address] [place] [address] Phone [phone] Care Team Providers Care Wireless Architect Name Role Phone Jewell Leyva EUGENIA Primary Care Provider [phone] Reason for Visit * Reason Onset Date Comments Scheduling 06/15/2024 Encounter Details Date Type Department Care Team (Late st Contact Info) Description 06/15/2024 Telephone Hematology/Oncology, [facility] [address] [place] [address] Celia Beard MD [address] [place] [phone] Scheduling Allergies Active Allergy Reactions Criticality Noted Date Comments Vancomycin Low 03/16/2022 documented as of this encounter (statuses as of 06/16/2024) Medications MULTIVITAMINS PO TABS one a day Active ALPRAZolam 0.25 MG Oral Tablet (xaNAX) Take by mouth 1 Tablet in the morning AND 1 Tablet at noon AND 1 Tablet before bedtime. As needed for anxiety. 30 Tablet 1 2 Active Additional Information Patient not taking.Reported on 05/27/2024 Nitroglycerin 0.2% rectal ointment Administer into the rectum 2 times a day. 20 g 3 4 Active Additional Information Patient not taking.Reported on 05/27/2024 PARoxetine HCl 40 MG Oral Tablet (pAXil) Take 1 Tablet by mouth in the morning. 90 Tablet 1 4 Active Amoxicillin-Pot Clavulanate 875-125 MG Oral Tablet (Augmentin)Indic ations:Malignant neoplasm of overlapping sites of left breast in female, estrogen receptor negative (HCC) Take 1 Tablet by mouth in the morning and 1 Tablet before bedtime. 28 Tablet 4 Active oxyCODONE-Acetam inophen 5-325 MG Oral Tablet (Percocet)Indica tions:Malignant neoplasm of overlapping sites of left breast in female, estrogen receptor negative (HCC) Take 2 Tablets by mouth every 6 hours as needed for Pain, Mild, Pain, Moderate or Pain, Severe. 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 04/10/2023 Major depressive disorder, single episode, moder ate 06/07/2021 Encounter for other general counseling or advice on contraception 04/27/2010 Overview (04/20/2024): ICD-10 update of inactive term documented as of this encounter (statuses as of 06/16/2024) Resolved Problems Problem Noted Date Diagnosed Date Resolved Date Current mild episode of chente r depressive disorder without prior episode 08/19/2018 4 ABN PAP SMEAR-CERVIX 999 Encounter for supervision of other normal 05/28/2016 Overview (11/21/2015): ICD-10 update of inactive term documented as of this encounter (statuses as of 06/16/2024) Immunizations Name Administration Dates Next Due TD [...] encounter Miscellaneous Notes * Telephone Encounter - Yasmine Harris OSA - 06/16/2024 12:43 PM EST Patient had called back to schedule the Mediport Insertion for 06/23 at [facility] Patient identified by: name Person taught: Patient METHOD: Lecture-telephone interview PATIENT INSTRUCTIONS GIVEN: - General Preoperative Instructions Reviewed - NPO Instructions Reviewed, pt to stop eating 8 hours prior to procedure and stop drinking 2 hoursprior to procedure. -Software Test Manager required Location and check-in instructions Verbalizes understanding of education: Yes Procedure date at time of Imaging Encounter: 06/23 What procedure is patient having? Mediport Insertion Laterality confirmed as Not Applicable Does the patient have a yellow bar? did not The Patient was given the opportunity to ask questions concerning the procedure. Signature: ALESSIA Flores 06/16/2024 * Telephone Encounter - Yasmine Harris OSA - 06/15/2024 10:43 AM EST Called patient to schedule Mediport Insertion for [facility] . No answer. Left message for patient to return call. documented in this encounter Plan of Treatment Upcoming Encounters Date Type Department Care Team (Late st Contact Info) Description 06/22/2024 8:00 AM EST Office Visit General Surgery, [facility] [address] [place] [address] Fawn Lindsay MD [address] [place] [address] 06/24/2024 3:00 PM EST Office Visit Plastic Surgery, [place] [address] [place] [address] Pratik Quinn MD [address] [place] [address] 06/28/2024 9:20 AM EST Laboratory Laboratory [facility] [address] [place] [phone] [place] [address] [place] [address] 06/28/2024 10:30 AM EST Hem/Onc Treatment Hematology/Oncology Treatment, [place] [address] [place] [phone] 09/16/2024 8:00 AM EST Telemedicine Genetics HemOnc, [facility] [address] [place] [address] Sofia Eldridge, MS [address] [place] [address] Scheduled Procedures Name Priority Associated Diagnoses Date/Ti [...] Not on filedocumented as of this encounter Care Teams Wireless Architect Relationship Specialty Start Date End Date Gordon Jewell Faye, SAPNAC [address] [place] [address] PCP - General Physician Mend Worker 05/10/24 documented as of this encounter
--- OUTSIDE RECORDS SUMMARY | 2024-10-09 06:38 | External Medical Summary ---
Author Name Unknown Address Unknown Organization [facility] [address] [place] [address] Laboratory Report Ordering Provider Test Date Status GENE RUIZ 06/28/2024 09:10:15 Final Observation Date Value Abnormality Reference (Units ) Status BUN 06/28/2024 09:10:15 16 6-20 (mg/dL) Final Creatinine 06/28/2024 09:10:15 0.8 0.5-1.0 (mg/dL) Final Glomerular filtration rate/1.73 sq M.predicted [Volume Rate/Area] in Serum, Plasma or Blood by Creatinine-based formula (CKD-EPI) 06/28/2024 09:10:15 88 >=60 (mL/min) Final eGFR is calculated based on the CKD-EPI 2020 equation. Sodium 06/28/2024 09:10:15 140 135-146 (m mol/L) Final Potassium 06/28/2024 09:10:15 4.1 3.5-5.1 (m mol/L) Final Cl 06/28/2024 09:10:15 105 98-107 (mm ol/L) Final CO2 06/28/2024 09:10:15 23 22-32 (mmo l/L) Final Anion gap 06/28/2024 09:10:15 12 7-15 (mmol /L) Final Glucose 06/28/2024 09:10:15 135 Above high normal 70 -120 (mg/dL) Final Albumin 06/28/2024 09:10:15 4.3 3.8-5.0 (g /dL) Final AST (Aspartate aminotransferase) 06/28/2024 09:10:15 19 10-35 (U/L) Fin al Alk Phos 06/28/2024 09:10:15 97 35-130 (U/ L) Final Bilirubin, Total 06/28/2024 09:10:15 0.3 <=1 .2 (mg/dL) Final Calcium 06/28/2024 09:10:15 9.4 8.4-10.2 ( mg/dL) Final Protein 06/28/2024 09:10:15 6.9 6.0-8.3 (g /dL) Final ALT (Alanine aminotransferase) 06/28/2024 09:10:15 20 10-35 (U/L) Shaheen aguilar Performing Location [facility] [address] [place] [address]
--- OUTSIDE RECORDS SUMMARY | 2024-10-09 06:38 | External Medical Summary | Summary of Care ---
Author Name Unknown Organization [facility] Address [address] [place] [address] Phone [phone] Care Team Providers Care Retail Marketing Executive Name Role Phone Grodon Jewell Faye EUGENIA Primary Care Provider [phone] Reason for Visit * Reason Comments Follow Up Office Procedure Pt presents for offi ce procedure, wanting to discuss some things prior to procedure. Encounter Details Date Type Department Care Team (Late st Contact Info) Description 06/22/2024 8:00 AM EST Office Visit General Surgery, [facility] [address] [place] [address] Fawn Lindsay MD [address] [place] [address] Malignant neoplasm of upper-inner quadrant of left [...] Start Date End Date Status lidocaine-epinephrine 2 %-1:803975 inj 200 mgIndications:Malignant neoplasm of upper-inner quadrant [...] 1 08/14/2023 Food insecurity 05/31/2024 Overview: Per [facility] Protocol ASCUS with positive high risk [...] nodes. Will order US biopsy and avery career professional placement into left axillary node. Will need [...] 06/23/2024 9:00 AM EST Hospital Encounter OR [facility], Operating Room, [facility] - 4th Floor [address] [place] [address] Rubén Hou MD [address] [facility] [place] [address] 06/23/2024 9:00 AM EST - 06/23/2024 9:56 AM EST Surgery OR [facility], Operating Room, [facility] - 4th Floor [address] [place] [phone] Rubén Hou MD [address] [facility] [place] [address] INSERT TUNNELED CENTRAL VENOUS ACCESS WITH SUBQ PORT 06/24/2024 3:00 PM EST Office Visit Plastic Surgery, [place] [address] [place] [address] Pratik Quinn MD [address] [place] [address] 06/28/2024 9:20 AM EST Laboratory Laboratory [facility] [address] [facility] [place] [phone] Rayna Lab [facility] [address] [facility] [place] [address] 06/28/2024 10:30 AM EST Hem/Onc Treatment Hematology/Oncolog y Treatment, [place] [address] [place] [phone] 06/29/2024 8:45 AM EST Nurse Only General Surgery, [facility] [place] [address] [facility] [place] [address] Nurse Patrick Gen Surg [facility] [place] [address] 09/16/2024 8:00 AM EST Telemedicine Genetics [place]c, [facility] [address] [place] [address] Sofia Eldridge, [place] [address] [place] [address] Pending Results Name Type Priority Associated Diagnoses [...] Action Date Dose Rate Site lidocaine-epinephrine 2 %-1:315110 inj 200 mg 200 mg (10 mL), Subcutaneous, ONCE, On Fri06/22/24 at 1015, For 1 doseIndications:Malignant neoplasm of upper-inner quadrant of left breast in female, estrogen receptor negative (HCC) Given 06/22/2024 11:08 AM EST 200 [address] Left documented in this encounter Care Teams Retail Marketing Executive Relationship Specialty Start Date End Date GordonOctober EUGENIA Mckinney [address] [place] [address] PCP - General Physician Cytology Teacher 05/10/24 documented as of this encounter
--- OUTSIDE RECORDS SUMMARY | 2024-10-09 06:38 | External Medical Summary | Summary of Care ---
Author Name Unknown Organization [facility] Address [address] [facility] [place] [address] Phone [phone] Care Team Providers Care Collections Representative Name Role Phone Gordon Jewell Faye EUGENIA Primary Care Provider [phone] Reason for Visit * Reason Comments Follow Up Office Procedure Pt presents for offi ce procedure, wanting to discuss some things prior to procedure. Encounter Details Date Type Department Care Team (Late st Contact Info) Description 06/22/2024 8:00 AM EST Office Visit General Surgery, [facility] [address] [place] [address] Fawn Lindsay MD [address] [place] [address] Malignant neoplasm of upper-inner quadrant of left [...] Start Date End Date Status lidocaine-epinephrine 2 %-1:127796 inj 200 mgIndications:Malignant neoplasm of upper-inner quadrant [...] 1 08/14/2023 Food insecurity 05/31/2024 Overview: Per [facility] Protocol ASCUS with positive high risk [...] nodes. Will order US biopsy and avery binder stripper hand placement into left axillary node. Will need [...] Care Team (Latest Contact Info) Description 06/23/2024 11:19 AM EST Hospital Encounter OR [facility], Operating Room, [facility] - 4th Floor [address] [place] [phone] Rubén Hou MD [address] [facility] [place] [address] 06/23/2024 11:19 AM EST - 06/23/2024 12:15 PM EST Surgery OR [facility], Operating Room, [facility] - 4th Floor [address] [place] [phone] Rubén Hou MD [address] [facility] [place] [address] INSERT TUNNELED CENTRAL VENOUS ACCESS WITH SUBQ PORT 06/24/2024 3:00 PM EST Office Visit Plastic Surgery, [place] [address] [place] [address] Pratik Quinn MD [address] [place] [address] 06/28/2024 9:20 AM EST Laboratory Laboratory [facility] 200 [place] [phone] Rayna Lab [facility] [address] [facility] [place] [address] 06/28/2024 10:30 AM EST Hem/Onc Treatment Hematology/Oncolog y Treatment, [place] [address] [facility] [place] [phone] 06/29/2024 8:45 AM EST Nurse Only General Surgery, [facility] [address] [facility] [place] [address] Nurse Patrick Gen Surg [facility] 132 [facility] [place] [address] 09/16/2024 8:00 AM EST Telemedicine Genetics HemOnc, [facility] [address] [place] [address] Sofia Eldridge, MS [address] [place] [address] Scheduled Orders Name Type Priority Associated Diagnoses Orde r Schedule US GUIDED BREAST BIOPSY LEFT Medical Imaging Routine Malignant neoplasm of upper-inner quadrant of left breast in female, estrogen receptor negative (HCC) Axillary adenopathy Expected: 06/23/2024 (Approximate), Expires: 07/23/2025 SURGICAL PATHOLOGY Pathology Routine Malignant neoplasm of upper-inner quadrant of left breast in female, estrogen receptor negative (HCC) Ordered: 06/22/2024 Scheduled Procedures Name Priority Associated Diagnoses Date/Ti me INSERT TUNNELED CENTRAL VENOUS ACCESS WITH SUBQ PORT Malignant neoplasm of overlapping sites of left breast in female, estrogen receptor negative (HCC) 06/23/2024 11:19 AM EST COLONOSCOPY FLEXIBLE PROXIMAL DIAGNOSTIC Recall [...] (HCC) documented in this encounter Care Teams Collections Representative Relationship Specialty Start Date End Date Gordon October SAPNA MckinneyC [address] [place] [address] PCP - General Physician Fiscal Accountant 05/10/24 documented as of this encounter
--- OUTSIDE RECORDS SUMMARY | 2024-10-09 06:38 | External Medical Summary | Summary of Care ---
Author Name Unknown Organization [facility] Address [address] [facility] [place] [address] Phone [phone] Care Team Providers Care Facility Attendant Name Role Phone Gordon Jewell Faye EUGENIA Primary Care Provider [phone] Reason for Visit * Reason Comments Follow Up Office Procedure Pt presents for offi ce procedure, wanting to discuss some things prior to procedure. Encounter Details Date Type Department Care Team (Late st Contact Info) Description 06/22/2024 8:00 AM EST Office Visit General Surgery, [facility] [address] [place] [address] Fawn Lindsay MD [address] [place] [address] Malignant neoplasm of upper-inner quadrant of left [...] Start Date End Date Status lidocaine-epinephrine 2 %-1:674237 inj 200 mgIndications:Malignant neoplasm of upper-inner quadrant [...] 1 08/14/2023 Food insecurity 05/31/2024 Overview: Per [facility] Protocol ASCUS with positive high [...] nodes. Will order US biopsy and avery silk spreader placement into left axillary node. Will need [...] 06/23/2024 9:00 AM EST Hospital Encounter OR [facility], Operating Room, [facility] - 4th Floor [address] [place] [phone] Rubén Hou MD 400 [facility] [place] [address] 06/23/2024 9:00 AM EST - 06/23/2024 9:56 AM EST Surgery OR [facility], Operating Room, [facility] - 4th Floor [address] [place] [phone] Rubén Hou MD [address] [facility] [place] [address] INSERT TUNNELED CENTRAL VENOUS ACCESS WITH SUBQ PORT 06/24/2024 3:00 PM EST Office Visit Plastic Surgery, [place] [address] [place] [address] Pratik Quinn MD [address] [place] [address] 06/28/2024 9:20 AM EST Laboratory Laboratory [facility] 200 [facility] [place] [phone] Rayna Lab [facility] [address] [facility] [place] [address] 06/28/2024 10:30 AM EST Hem/Onc Treatment Hematology/Oncolog y Treatment, [place] [address] [place] [phone] 06/29/2024 8:45 AM EST Nurse Only General Surgery, [facility] [place] [address] [facility] [place] [address] Nurse Patrick Gen Surg [email or web address] [address] [facility] [place] [address] 09/16/2024 8:00 AM EST Telemedicine Genetics HemOnc, [facility] [address] [place] [address] Sofia Eldridge, MS [address] [place] [address] Pending Results Name Type Priority Associated Diagnoses [...] (HCC) documented in this encounter Care Teams Facility Attendant Relationship Specialty Start Date End Date Jewell Leyva PA-C [address] [place] [address] PCP - General Physician Commercial Pilot 05/10/24 documented as of this encounter
--- OUTSIDE RECORDS SUMMARY | 2024-10-09 06:39 | External Medical Summary | Summary of Care ---
Author Name Unknown Organization [facility] Address [address] [place] [address] Phone [phone] Care Team Providers Care Fire Suppression Captain Name Role Phone Jewell Leyva Faye BELLO Primary Care Provider [phone] Reason for Referral * Precert (Within 10 days (routine)) - Authorized Specialty Diagnoses / Procedures Referred By Jacobo lo Referred To Contact Radiology Diagnoses Malignant neoplasm of overlapping sites of left breast in female, estrogen receptor negative (HCC) Procedures IR VENOUS ACCESS MEDIPORT Celia Beard MD [address] [place] [address] Phone: tel: fax: Referral ID Status Reason Start Date Expiration Date V isits Requested Visits Authorized [id number] Authorized 06/14/2024 999 999 * Precert (Diagnostic Medical) (Within 24 hrs (call dept; emergent)) - Authorized Specialty Diagnoses / Procedures Referred By Jacobo lo Referred To Contact Cardiac Studies Diagnoses Malignant neoplasm of overlapping sites of left breast in female, estrogen receptor negative (HCC) Procedures ECHO, COMPLETE (2D), TRANS-THORACIC Celia Beard MD [address] [place] [address] Phone: tel: fax: Referral ID Status Reason Start Date Expiration Date V isits Requested Visits Authorized [id number] Authorized Precert 06/14/2024 999 999 * Precert (Within 24 hrs (call dept; emergent)) - Authorized Specialty Diagnoses / Procedures Referred By Contac t Referred To Contact Radiology Diagnoses Malignant neoplasm of overlapping sites of left breast in female, estrogen receptor negative (HCC) Procedures PET CT SKULL BASE TO MID-THIGH FDG Celia Beard MD [address] [place] [address] Phone: tel: fax: Referral ID Status Reason Start Date Expiration Date V isits Requested Visits Authorized [id number] Authorized 06/14/2024 999 999 Reason for Visit * Reason Comments 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 * Evaluate & Treat - Unlimited Visits (Within 3 days (urgent)) - Authorized Specialty Diagnoses / Procedures Referred By Contac t Referred To Contact Hematology/Oncology / Hematology Oncology Diagnoses Malignant neoplasm of upper-inner quadrant of left breast in female, estrogen receptor negative (HCC) Fawn Lindsay MD [address] [facility] [place] [address] Phone: tel: fax: Referral ID Status Reason Start Date Expiration Date Visits Requested Visits Authorized [id number] Authorized Specialty Services Required 4 [phone] Encounter Details Date Type Department Care Team (Late st Contact Info) Description 06/14/2024 11:00 AM EST Office Visit Hematology/Oncology [facility] [address] [facility] [place] [address] Celia Beard MD [address] [place] [address] Malignant neoplasm of overlapping sites of left breast in female, estrogen receptor negative (HCC)* Allergies Active Allergy Reactions Criticality Noted Date Comments Vancomycin Low 03/16/2022 documented as of this encounter (statuses as of 06/15/2024) Medications MULTIVITAMINS PO TABS one a day [...] as of this encounter (statuses as of 06/15/2024) Active Problems Problem Noted Date Diagnosed Date Malignant neoplasm of overla pping sites of left breast in female, estrogen receptor negative 06/14/2024 Encounter for antineoplastic chemotherapy 2023 Prevention of chemotherapy-induced neutropenia 1 08/14/2023 Food insecurity 05/31/2024 Overview: Per [facility] Protocol ASCUS with positive high risk HPV cervical 06/04 Major depressive disorder, r ecurrent severe without psychotic features 04/10/2023 Major depressive disorder, single episode, moder ate 06/07/2021 Encounter for other general counseling or advice on contraception 04/27/2010 Overview (04/20/2024): ICD-10 update of inactive term documented as of this encounter (statuses as of 06/15/2024) Resolved Problems Problem Noted Date Diagnosed Date Resolved Date Current mild episode of chente r depressive disorder without prior episode 08/19/2018 4 ABN PAP SMEAR-CERVIX 999 Encounter for supervision of other normal 05/28/2016 Overview (11/21/2015): ICD-10 update of inactive term documented as of this encounter (statuses as of 06/15/2024) Immunizations Name Administration Dates Next Due TD [...] Sign Reading Time Taken Comments Blood Pressure 131/80 06/14/2024 11:22 AM EST Pulse 74 06/14/2024 11:22 AM EST Temperature 36.5 C (97.7 F) 06/14/2024 1 1:22 AM EST Respiratory Rate - - Oxygen Saturation 94% 06/14/2024 11: 22 AM EST Inhaled Oxygen Concentration - - Weight 94.3 kg (207 lb 12.8 oz) 024 11:22 AM EST Height 168.9 cm (5' 6.5") 06/14/2024 11 :22 AM EST Body Mass Index 33.04 06/14/2024 11:22 AM EST documented in this encounter Progress Notes * Celia Beard MD - 06/14/2024 11:25 AM EST Date of visit: 06/14/2024 Referred by Fawn Lindsay MD Referral (Urgent)/ Reason for consultation: Malignant neoplasm of upper-inner quadrant of left breast in female, estrogen receptor negative (HCC) [C50.212, Z17.1] for neoadjuvant chemotherapy due to very aggressive, enlarging breast ca. ER neg HPI Radha Fung is a 48 year old, [...] carcinoma, grade 3 TNBC ( ER negative, MI weak mostly negative , HER2 Monroe negative [...] specimen is prepared for cell block at [facility]. The cell block is submitted in cassette A1 and processed at [facility]. Prepared by: MILLA Formalin fixation time: 7 hours Performing Labs Product Management Internship screening performed at [facility] ([facility]), [facility] [place] [address]. Pathologist sign out performed at [facility] ([facility]), [address] [place] [id number]. 06/02/2024: Core needle biopsy of the Left [...] cells. ER is negative. 06/02/2024: SURGICAL PATHOLOGY: [id number] Component Final Diagnosis A. Breast, Left, left breast 11:00 9cm FN - palpable, core biopsy: Invasive ductal carcinoma, histologic grade 3, associated extensive necrosis Predictive markers ordered at 1024 Order Comments Enlarging complex solid and cystic mass left breast 11:00 concerning for malignancy Gross Description A. Breast, Left. Received in formalin with a container labeled with "Radha Fung", "[id number]", "1975" and "left breast, eleven o'clock, 9 [...] This test was developed and performed at [facility] and its performance characteristics determined by [employer]. It has not been cleared or approved [...] or malignancy of the cervix (as per [place] system) RADIOLOGY TEST RESULTS /IMAGES REVIEWED WITH [...] scanning was performed. Kinetic analysis was evaluated with[employer]ipt[employer] software. Films Compared 06/02/2024 US GUIDED BREAST [...] timeout procedure was performed by Dr. Federica aBiley in the presence of Chelsie Young and [...] 0 - Incomplete: Needs Additional Imaging Evaluation. PMH: Patient Active Problem List Diagnosis Encounter [...] Current Outpatient Medications Medication Sig Dispense Refill PARoxetine HCl 40 MG Oral Tablet (pAXil) [...] Moderate or Pain, Severe. 90 Tablet 0 MULTIVITAMINS PO TABS one a day ALPRAZolam [...] taking: Reported on 05/27/2024) 20 g 3 No current facility-administered medications for this visit. Review of patient's allergies indicates: Allergen Reactions Vancomycin Review of Systems Constitutional: Negative. HENT: Negative. [...] advanced Left breast, grade 3, ER negative MI weakly positive, HER2 Monroe negative, invasive ductal [...] PET CT SKULL BASE TO MID-THIGH FDG ECHO, COMPLETE (2D), TRANS-THORACIC for pre chemo LVEF evaluation Urgent IR consulted for VENOUS ACCESS MEDIPORT placement Antibiotic prescribed Amoxicillin-Pot Clavulanate 875-125 MG Oral Tablet (Augmentin); Take 1 Tabletby mouth in the morning and 1 Tablet before bedtime. Patient with significant pain- oxyCODONE-Acetaminophen 5-325 MG Oral Tablet (Percocet); Take 2 Tablets by mouth every 6 hours as needed for Pain, Mild, Pain, Moderate or Pain, Severe. Consent obtained for chemotherapy with Keytruda + Carboplatinum + paclitaxel to be given once every21 days with pegfilgrastim given on day 2. 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 Follow up: Return in about 1 week (around 06/21/2024). Start antibiotics today Percocet for pain control Follow-up: Return in about 1 week (around 06/21/2024). | Check-out note: Labs today Urgent/ESTEVAN: PET scan Mediport ECHO Start antibiotics today Percocet for pain control Celia Beard MD documented in this encounter Nursing Notes * Matilda Watkins CMA - 06/14/2024 11:24 AM EST Patient identifed by name and birthdate Do you have any concerns about pain management for today's visit? Yes. Patient instructed to discuss pain concerns with provider during the visit today Living Will or Advance Directive for Health Care as noted on the problem list. [facility] is a way you can talk to your provider on line through e-mail. Would you like to sign up? I can activate it for you? ALREADY ACTIVE Filed Vitals: 06/14/24 1122 BP: 131/80 Pulse: 74 Temp: 36.5 C (97.7 F) TempSrc: Tympanic SpO2: 94% Weight: 94.3 kg (207 lb 12.8 oz) Height: 1.689 m (5' 6.5") Patient was instructed to not get up on the exam table/exam chair until directed and assisted by their provider; patient is to remain seated in the chair/ wheelchair/ exam table/ exam chair for fall prevention and safety reasons. Patient is aware to have assistance to step down off exam table/exam chair with personnel. Patient voiced full comprehension of instructions. documented in this encounter Miscellaneous Notes * Oncology Pathways Update - Celia Beard MD - 06/14/2024 12:16 PM EST START ON PATHWAY REGIMEN - Breast [id number]: Pembrolizumab 200 mg D1 + Paclitaxel 80 mg/m D1, 8, 15 + Carboplatin AUC=5 D1 q21 Days x 12 Weeks, Followed by Pembrolizumab 200 mg + Doxorubicin + Cyclophosphamide q21 Days x 12 Weeks, Followed by Surgery Cycles 1 through 4: A cycle is every 21 days: Pembrolizumab (Keytruda) 200 mg flat dose IV once on day 1 of cycles 1 through 4 Paclitaxel 80 mg/m IV once daily on days 1, 8, and 15 of cycles 1 through 4 Carboplatin AUC=5 IV once on day 1 of cycles 1 through 4 Filgrastim-xxxx 5 mcg/kg subcutaneously once daily on days 16, 17, and 18 of cycles 1 through 4 Cycles 5 through 8: A cycle is every 21 days: Pembrolizumab (Keytruda) 200 mg flat dose IV once on day 1 of cycles 5 through 8 Doxorubicin 60 mg/m IV once on day 1 of cycles 5 through 8 Cyclophosphamide 600 mg/m IV once on day 1 of cycles 5 through 8 Pegfilgrastim-xxxx 6 mg flat dose subcutaneously once on day 2 of cycles 5 through 8 Always confirm dose/schedule in your pharmacy ordering system Citations: -Malissa P, Rodrigo J, Sylvie L, et al. Pembrolizumab for Early Triple-Negative Breast Cancer. N Engl J Med. 2020;382(9):810-821. doi:10.1056/[id number]. URL: https://pubmed.ncbi.nlm.nih.gov/53625480/ Patient Characteristics: Preoperative or Nonsurgical Candidate, M0 (Clinical Staging), Up to cT4c, Any N, M0, Neoadjuvant Therapy followed by Surgery, Invasive Disease, Chemotherapy, HER2 Negative, ER Negative, [place] Therapy Indicated and Candidate for Checkpoint Inhibitor Therapeutic Status: Preoperative or Nonsurgical Candidate, M0 (Clinical Staging) AJCC M Category: cM0 AJCC Grade: G3 ER Status: Negative (-) AJCC 8 Stage Grouping: IIIC HER2 Status: Negative (-) AJCC T Category: cT4 AJCC N Category: cN1 MI Status: Negative (-) Breast Surgical Plan: Neoadjuvant Therapy followed by Surgery Intent of Therapy: Curative Intent, Discussed with Patient * Oncology Pathways Notification - Celia Beard MD - 06/14/2024 12:16 PM EST A new patient decision has been made in ClinicalPath. Details of this patient have been provided below: Patient Information: Name: Radha Fung : 1975 Provider Name: Celia Gotti Disease: Breast Pathway Followed: Breast, Preoperative or Nonsurgical Candidate, M0 (Clinical Staging), Up to cT4c,Any N, M0, Neoadjuvant Therapy followed by Surgery, Invasive Disease, Chemotherapy, HER2 Negative, ER Negative, [place] Therapy Indicated and Candidate for Checkpoint Inhibitor Patient Characteristics: Preoperative or Nonsurgical Candidate, M0 (Clinical Staging), Up to cT4c, Any N, M0, Neoadjuvant Therapy followed by Surgery, Invasive Disease, Chemotherapy, HER2 Negative, ER Negative, [place] Therapy Indicated and Candidate for Checkpoint Inhibitor Therapeutic Status: Preoperative or Nonsurgical Candidate, M0 (Clinical Staging) AJCC M Category: cM0 AJCC Grade: G3 ER Status: Negative (-) AJCC 8 Stage Grouping: IIIC HER2 Status: Negative (-) AJCC T Category: cT4 AJCC N Category: cN1 MI Status: Negative (-) Breast Surgical Plan: Neoadjuvant Therapy followed by Surgery Intent of Therapy: Curative Intent, Discussed with PatientTreatment Details: START ON PATHWAY REGIMEN [id number]: Pembrolizumab 200 mg D1 + Paclitaxel 80 mg/m D1, 8, 15 + Carboplatin AUC=5 D1 q21 Days x 12 Weeks, Followed by Pembrolizumab 200 mg + Doxorubicin + Cyclophosphamide q21 Days x 12 Weeks, Followed by Surgery Cycles 1 through 4: A cycle is every 21 days: Pembrolizumab (Keytruda) 200 mg flat dose IV once on day 1 of cycles 1 through 4 Paclitaxel 80 mg/m IV once daily on days 1, 8, and 15 of cycles 1 through 4 Carboplatin AUC=5 IV once on day 1 of cycles 1 through 4 Filgrastim-xxxx 5 mcg/kg subcutaneously once daily on days 16, 17, and 18 of cycles 1 through 4 Cycles 5 through 8: A cycle is every 21 days: Pembrolizumab (Keytruda) 200 mg flat dose IV once on day 1 of cycles 5 through 8 Doxorubicin 60 mg/m IV once on day 1 of cycles 5 through 8 Cyclophosphamide 600 mg/m IV once on day 1 of cycles 5 through 8 Pegfilgrastim-xxxx 6 mg flat dose subcutaneously once on day 2 of cycles 5 through 8 Always confirm dose/schedule in your pharmacy ordering system Citations: -Malissa P, Rodrigo J, Sylvie Paul, et al. Pembrolizumab for Early Triple-Negative Breast Cancer. N Engl J Med. 2020;382(9):810-821. doi:10.1056/[id number]. URL: https://pubmed.ncbi.nlm.nih.gov/89658369/ documented in this encounter Plan of Treatment Upcoming Encounters Date Type Department Care Team (Late st Contact Info) Description 06/15/2024 9:45 AM EST Imaging Radiology [address] [facility] [place] [address] 06/15/2024 2:00 PM EST Pt Ed by Nurse Hematology/Oncology [facility] [address] [place] [phone] Nurse Rayna Hem Onc [facility] [address] [facility] [place] [address] 06/22/2024 8:00 AM EST Office Visit General Surgery, [facility] [address] [facility] [place] [address] Fawn Lindsay MD 132 [facility] [place] [address] 06/24/2024 11:30 AM EST Office Visit Hematology/Oncology [facility] [address] [place] [phone] Celia Beard MD [address] [place] [phone] 09/16/2024 8:00 AM EST Telemedicine Genetics HemOnc, [address] [address] Sofia Eldridge, [place] [address] [facility] [place] [address] Pending Results Name Type Priority Associated Diagnoses Date /Time CA 27.29 Lab Routine Malignant neoplasm of overlapping sites of left breast in female, estrogen receptor negative (HCC) 06/14/2024 12:50 PM EST ECHO, COMPLETE (2D), TRANS-THORACIC Echocardiology STAT Malignant neoplasm of overlapping sites of left breast in female, estrogen receptor negative (HCC) 06/14/2024 3:27 PM EST Scheduled Orders Name Type Priority Associated Diagnoses Orde r Schedule CA 27.29 Lab Routine Malignant neoplasm of overlapping sites of left breast in female, estrogen receptor negative (HCC) Expected: 06/14/2024, Expires: 06/14/[address] SKULL BASE TO MID-THIGH FDG Medical Imaging STAT Malignant neoplasm of overlapping sites of left breast in female, estrogen receptor negative (HCC) Ordered: 06/14/2024 IR VENOUS ACCESS MEDIPORT Medical Imaging Routine Malignant neoplasm of overlapping sites of left breast in female, estrogen receptor negative (HCC) Ordered: 06/14/2024 Scheduled Procedures Name Priority Associated Diagnoses Date/Ti [...] Not on filedocumented as of this encounter Results * HEPATITIS B CORE ANTIBODIES IGG AND IGM (06/14/2024 12:50 PM EST) Hepatitis B Core Antibodies IgG and IgM Negative Negative 06/14/2024 8:27 PM EST LABORATORY [facility] Blood Venous blood specimen / Unknown Venipuncture / Unknown 06/14/2024 12:50 PM EST 06/14/2024 12:50 PM EST Celia Beard MD LAB BLOOD OR DERABLES Final Result Performing Organization Address [facility]/ZIP Co de Phone Number LABORATORY [place] [address] [place] [address] * HEPATITIS B SURFACE ANTIGEN (06/14/2024 12:50 PM EST) Pathologist [facility] Hepatitis B Surface Antigen Negative Negative 06/14/2024 8:27 PM EST LABORATORY [facility] Blood Venous blood specimen / Unknown Venipuncture / Unknown 06/14/2024 12:50 PM EST 06/14/2024 12:50 PM EST Celia Beard MD LAB BLOOD OR DERABLES Final Result LAB[facility]ATORY [facility] [address] [place] [address] * HEPATITIS B SURFACE ANTIBODY (06/14/2024 12:50 PM EST) Pathologist [facility] Hepatitis B Surface Antibody, Quantitative <3.5 mIU/mL 06/14/2024 8:27 PM EST LABORATORY [facility] Hepatitis B Surface Antibody, Qualitative Negative 06/14/2024 8:27 PM EST LABORATORY C Hepatitis B Surface Antibody, Interpretation NOT immune to Hepatitis B Virus 06/14/2024 8:27 PM EST LABORATORY [facility] Comment: POSITIVE: >=11.5 mIU/mL INDETERMINATE: 8.5-<11.5 mIU/mL NEGATIVE: <8.5 mIU/mL Blood Venous blood specimen / Unknown Venipuncture / Unknown 06/14/2024 12:50 PM EST 06/14/2024 12:50 PM EST us Celia Beard MD LAB BLOOD OR DERABLES Final Result Performing Organization Address City/[facility]/ZIP Co de Phone Number LABORATORY [facility] [address] [place] [address] * (ABNORMAL) LD (06/14/2024 12:50 PM EST) [facility] LD 297(H) <=250 U/L 06/14/2024 8:14 PM EST LABORATORY [facility] Blood Venous blood specimen / Unknown Venipuncture / Unknown 06/14/2024 12:50 PM EST 06/14/2024 12:50 PM EST us Celia Beard MD LAB BLOOD OR DERABLES Final Result Performing Organization Address [facility] Phone Number LAB[facility]ATORY [facility] [address] [place] [address] * CEA (06/14/2024 12:50 PM EST) [facility] CEA 1.0 <=5.2 ng/mL 06/14/2024 8:22 PM EST LABORATORY [facility] Blood Venous blood specimen / Unknown Venipuncture / Unknown 06/14/2024 12:50 PM EST 06/14/2024 12:50 PM EST us Celia Beard MD LAB BLOOD OR DERABLES Final Result Performing Organization Address [facility] Co de Phone Number LABORATORY [facility] [address] [place] [address] * PT INR (06/14/2024 12:50 PM EST) Prothrombin Time 13.4 11.6 - 15.2 seconds 06/14/2024 1:20 PM EST [facility] 56 INR 1.0 0.8 - 1.2 06/14/2024 1:20 PM EST [facility] 56 Blood Venous blood specimen / Unknown Venipuncture / Unknown 06/14/2024 12:50 PM EST 06/14/2024 12:50 PM EST Narrative [facility] 56- - 06/14/2024 1:20 PM EST Warfarin Therapy INR: 2.0-3.0 conventional anticoagulation INR: 2.5-3.5 high intensity anticoagulation Celia Beard MD LAB BLOOD OR DERABLES Final Result [facility] [address] [place] [address] * COMPREHENSIVE METABOLIC PANEL (06/14/2024 12:50 PM EST) Pathologist [facility] BUN 19 6 - 20 mg/dL 06/14/2024 1:59 PM EST [facility] 56 CREATININE 0.9 0.5 - 1.0 mg/dL 06/14/2024 1:59 PM EST [facility] 56- EGFR 74 >=60 mL/min 06/14/2024 1:59 PM EST [facility] 56 Comment:eGFR is calculated b ased on the CKD-EPI 2020 equation. SODIUM 142 135 - 146 mmol/L 06/14/2024 1:59 PM EST [facility] 56 POTASSIUM 4.0 3.5 - 5.1 mmol/L 06/14/2024 1:59 PM EST [facility] 56- CHLORIDE 104 98 - 107 mmol/L 06/14/2024 1:59 PM EST [facility] 56- CO2 27 22 - 32 mmol/L 06/14/2024 1:59 PM EST [facility] 56- ANION GAP 11 7 - 15 mmol/L 06/14/2024 1:59 PM EST [facility] 56- GLUCOSE 114 70 - 120 mg/dL 06/14/2024 1:59 PM [facility] 56 Albumin 4.4 3.8 - 5.0 g/dL 06/14/2024 1:59 PM [facility] 56 AST 23 10 - 35 U/L 06/14/2024 1:59 PM [facility] 56 Alkaline Phosphatase 108 35 - 130 U/L 06/14/2024 1:59 PM [facility] 56 Bilirubin, Total 0.3 <=1.2 mg/dL 06/14/2024 1:59 PM [facility] 56- CALCIUM 9.6 8.4 - 10.2 mg/dL 06/14/2024 1:59 PM [facility] 56 Protein 7.1 6.0 - 8.3 g/dL 06/14/2024 1:59 PM [facility] 56 ALT 33 10 - 35 U/L 06/14/2024 1:59 PM [facility] 56 Blood Venous blood specimen / Unknown Venipuncture / Unknown 06/14/2024 12:50 PM EST 06/14/2024 12:50 PM EST Celia Beard MD LAB BLOOD OR DERABLES Final Result [facility] [address] documented in this encounter Visit Diagnoses Diagnosis Malignant neoplasm of overlapping sites of left breast in female, estrogen receptor negative (HCC)- Primary documented in this encounter Care Teams Fire Suppression Captain Relationship Specialty Start Date End Date Gordon October EUGENIA [facility]ney [facility] [address] PCP - General Physician Maintenance Of Way Foreman 05/10/24 documented as of this encounter
--- OUTSIDE RECORDS SUMMARY | 2024-10-09 06:39 | External Medical Summary | Summary of Care ---
Author Name Unknown Organization [facility] Address [address] [place] [address] Phone [phone] Care Team Providers Care Utility Forester Name Role Phone Jewell Leyva Faye BELLO Primary Care Provider [phone] Reason for Referral * Evaluate & Treat - Unlimited Visits (Within 30 days (routine)) - Authorized Specialty Diagnoses / Procedures Referred By Jacobo lo Referred To Contact Plastic Surgery Diagnoses Malignant neoplasm of upper-inner quadrant of left breast in female, estrogen receptor negative (HCC) Fawn Lindsay MD [address] [place] [address] Phone: tel: fax: Referral ID Status Reason Start Date Expiration Date Visits Requested Visits Authorized [id number] Authorized Specialty Services Required 4 999 999 Question Answer Referral Priority Within 30 days (routine) Where should this appointment be scheduled? [facility] What condition is the patient being seen for? Breast Reconstruction Comments Current Patient BMI: There is no height or weight on file to calculate BMI. Has aggressive left breast cancer. Will need mastectomy and likely radiation postop on that side. Getting chemo first. Please see within next 4 weeks so we can work on timing. Thanks. Encounter Details Date Type Department Care Team (Late st Contact Info) Description 06/15/2024 Telephone General Surgery, [facility] [address] [facility] [address] Fawn Lindsay MD [address] [place] [address] Allergies Active Allergy Reactions Criticality Noted Date [...] Telephone Encounter - Fawn Lindsay MD - 06/15/2024 9:02 AM EST MRI discussed with pt. Will plan skin biopsy on 06/22 when she is in the office - Erika Valencia - could you reserve procedure room? Plastic surgery referral placed. documented in this encounter Plan of Treatment Upcoming Encounters Date Type Department Care Team (Late st Contact Info) Description 06/15/2024 9:45 AM EST Imaging Radiology [address] 132 [facility] [place] [address] 06/15/2024 2:00 PM EST Pt Ed by Nurse Hematology/Oncology [facility] [address] [place] [phone] Rayna, Nurse Hem Onc Scene [address] [place] [address] 06/22/2024 8:00 AM EST Office Visit General Surgery, [facility] [address] [place] [address] Fawn Lindsay MD [address] [place] [address] 06/24/2024 11:30 AM EST Office Visit Hematology/Oncology [facility] [place] [address] [place] [phone] Celia Beard MD [address] [place] [phone] 09/16/2024 8:00 AM EST Telemedicine Genetics HemOnc, [facility] [address] [place] [address] Sofia [place], MS [address] [place] [address] Scheduled Procedures Name Priority Associated Diagnoses Date/Ti [...] Primary documented in this encounter Care Teams Utility Forester Relationship Specialty Start Date End Date Godron Jewell EUGENIA Mckinney [address] [place] [address] PCP - General Physician Medical I D Sales 05/10/24 documented as of this encounter
--- OUTSIDE RECORDS SUMMARY | 2024-10-09 06:39 | External Medical Summary | Summary of Care ---
Author Name Unknown Organization [facility] Address [address] [facility] [address] Phone [phone] Care Team Providers Care Drive Worker Name Role Phone Jewell Leyva EUGENIA Primary Care Provider [phone] Reason for Visit * Reason Onset Date Comments Precert Future 06/14/2024 Ruff/Carbo/Taxol ---> Ruff/Doxo/Cyclo Encounter Details Date Type Department Care Team (Late st Contact Info) Description 06/14/2024 Telephone Hematology/Oncology [facility] [place] [address] [place] [address] Celia Beard MD 400 [facility] [place] [phone] Precert Future (Ruff/Carbo/Taxol ---> Ruff/D... Allergies Active Allergy Reactions Criticality Noted Date [...] 1 08/14/2023 Food insecurity 05/31/2024 Overview: Per [facility] Protocol ASCUS with positive high risk [...] Telephone Encounter - Birgit Tafoya RN - 06/15/2024 4:16 PM EST Patient returned call, verbalized understanding. * Telephone Encounter - Birgit Tafoya RN - 06/15/2024 4:02 PM EST Received order that phase 1 taxol will be day 1 every 21 days instead of days 1, 8, 15 every 21 days. Rhodelia updated. Left message for patient to return call to make her aware of change. Scheduling: please update treatment appt- should be 6 hours, appt note should state "C1D1 keytruda,carbo, taxol/ fulphila day 2". Thanks! PFC: patient asked during education visit if she will have any OOP costs for chemo- can you please follow up with her regarding this? Thanks! * Telephone Encounter - Birgit Tafoya RN - 06/15/2024 2:43 PM EST Referral entered. Port is being placed Friday06/23/24. Scheduling: please schedule patient - cancel 06/24 follow up- we will reschedule that with a future treatment - schedule for 06/28 or later date (patient requesting Mondays) --> labs "CBCd, CMP, TSH/T4" --> 4 hour appt "C1D1 keytruda, carbo, taxol" ([facility]art) Thanks! * Telephone Encounter - Demetrio García OSA - 06/14/2024 1:29 PM EST Patient scheduled and aware * Telephone Encounter - Khoi Ahmadi RN - 06/14/2024 1:10 PM EST Orders received, plan built and routed. Awaiting auth. -Chemo Consent: 06/14/24 -Chemo Education: Needs Scheduled -Port Placement: Referral Placed -Standing Lab orders placed: CBCD,CMP, TSH/T4 -Medications Pended: Zyprexa, Compazine, Zofran, Benadryl, Pepcid, Dexamethasone -Hep B Labs: Completed 06/14/24 Pt to receive Neupogen on Days 16-18, can discuss about doing home injections at nurse education. Scheduling- Please call patient to schedule nurse education visit ESTEVAN. documented in this encounter Plan of Treatment Upcoming Encounters Date Type Department Care Team (Late st Contact Info) Description 06/22/2024 8:00 AM EST Office Visit General Surgery, [facility] 132 [place] [address] Fawn Lindsay MD 132 [place] [address] 06/24/2024 3:00 PM EST Office Visit Plastic Surgery, [place] [address] [place] [address] Pratik Quinn MD [address] [place] [address] 06/28/2024 9:20 AM EST Laboratory Laboratory [facility] [address] [place] [phone] [place] [address] 06/28/2024 10:30 AM EST Hem/Onc Treatment Hematology/Oncology Treatment, [place] [address] [place] [phone] Rayna, Chair 5 Hem Onc Scen[address] [place] [address] 09/16/2024 8:00 AM EST Telemedicine Genetics HemOnc, [facility] [address] [place] [address] Sofia Eldridge, MS [address] [place] [address] Scheduled Orders Name Type Priority Associated Diagnoses Orde r Schedule CBC WITH WBC DIFFERENTIAL Lab STAT Malignant neoplasm of overlapping sites of left breast in female, estrogen receptor negative (HCC) Every Week for 30 Occurrences starting 06/14/2024 until 06/14/2025 COMPREHENSIVE METABOLIC PANEL Lab STAT Malignant neoplasm of overlapping sites of left breast in female, estrogen receptor negative (HCC) Every Week for 30 Occurrences starting 06/14/2024 until 06/14/2025 TSH WITH FREE T4 IF INDICATED Lab Routine Malignant neoplasm of overlapping sites of left breast in female, estrogen receptor negative (HCC) Every 3 Weeks for 12 Occurrences starting 06/14/2024 until 06/14/2025 Scheduled Procedures Name Priority Associated Diagnoses Date/Ti [...] Primary documented in this encounter Care Teams Drive Worker Relationship Specialty Start Date End Date GordonOctober EUGENIA Mckinney [address] [place] [address] PCP - General Physician Display Director 05/10/24 documented as of this encounter
--- OUTSIDE RECORDS SUMMARY | 2024-10-09 06:39 | External Medical Summary | Summary of Care ---
Author Name Unknown Organization [facility] Address [address] [place] [address] Phone [phone] Care Team Providers Care Laminated Plastics Assembler And Gluer Name Role Phone Jewell Leyva Faye BELLO Primary Care Provider [phone] Reason for Referral * Evaluate & Treat - Unlimited Visits (Within 30 days (routine)) - Authorized Specialty Diagnoses / Procedures Referred By Jacobo lo Referred To Contact Plastic Surgery Diagnoses Malignant neoplasm of upper-inner quadrant of left breast in female, estrogen receptor negative (HCC) Fawn Lindsay MD [address] [place] [address] Phone: tel: fax: Referral ID Status Reason Start Date Expiration Date Visits Requested Visits Authorized [id number] Authorized Specialty Services Required 4 999 999 [...] Contact Info) Description 06/15/2024 Telephone General Surgery, [facility] [address] [facility] [address] Fawn Lindsay MD [address] [place] [address] Allergies Active Allergy Reactions Criticality Noted Date [...] Date Resolved Date Current mild episode of chenet r depressive disorder without prior episode 08/19/2018 [...] Description 06/15/2024 9:45 AM EST Imaging Radiology [address] 132 [facility] [place] [address] 06/15/2024 2:00 PM EST Pt Ed by Nurse Hematology/Oncology [facility] [address] [place] [phone] Rayna, Nurse Hem Onc Scene [address] [place] [address] 06/22/2024 8:00 AM EST Office Visit General Surgery, [facility] [address] [place] [address] Fawn Lindsay MD [address] [place] [address] 06/24/2024 11:30 AM EST Office Visit Hematology/Oncology [facility] [place] [address] [place] [phone] Celia Beard MD [address] [place] [phone] 09/16/2024 8:00 AM EST Telemedicine Genetics HemOnc, [facility] 100 [place] [address] Sofia Eldridge, MS [address] [place] [address] Scheduled Procedures Name Priority Associated Diagnoses Date/Ti [...] Primary documented in this encounter Care Teams Laminated Plastics Assembler And Gluer Relationship Specialty Start Date End Date Gordon Jewell EUGENIA Mckinney [address] [place] [address] PCP - General Physician Bow Maker Machine Tender 05/10/24 documented as of this encounter
--- OUTSIDE RECORDS SUMMARY | 2024-10-09 06:39 | External Medical Summary | Summary of Care ---
Author Name Unknown Organization [facility] Address [address] [facility] [address] Phone [phone] Care Team Providers Care Yard Hostler Name Role Phone Jewell Leyva EUGENIA Primary Care Provider Reason for Visit * Reason Onset Date Comments Precert Future 06/14/2024 Ruff/Carbo/Taxol ---> Ruff/Doxo/Cyclo Encounter Details Date Type Department Care Team (Late st Contact Info) Description 06/14/2024 Telephone Hematology/Oncology [facility] [place] [address] [place] [address] Celia Beard MD 400 [facility] [place] [phone] Precert Future (Ruff/Carbo/Taxol ---> [...] 1 08/14/2023 Food insecurity 05/31/2024 Overview: Per [facility] Protocol ASCUS with positive high risk [...] encounter Miscellaneous Notes * Telephone Encounter - Demetrio García OSA - 06/16/2024 8:39 AM EST Appt changed * Telephone Encounter - Birgit Tafoya RN - 06/15/2024 4:16 PM EST Patient returned call, verbalized understanding. * Telephone Encounter - Birgit Tafoya RN - 06/15/2024 4:02 PM EST Received order that phase 1 taxol will be day 1 every 21 days instead of days 1, 8, 15 every 21 days. Drums updated. Left message for patient to return [...] 4 hour appt "C1D1 keytruda, carbo, taxol" ([facility]aredpalli) Thanks! * Telephone Encounter - Demetrio García [...] 8:00 AM EST Office Visit General Surgery, [facility] [address] [place] [address] Fawn Lindsay MD 132 [place] [address] 06/24/2024 3:00 PM EST Office Visit Plastic Surgery, [address] [address] Pratik Quinn MD [address] [place] [address] 06/28/2024 9:20 AM EST Laboratory Laboratory [facility] [address] [place] [address] [place], [facility] [place] [address] 06/28/2024 10:30 AM EST Hem[facility] [address] [place] [address] 09/16/2024 8:00 AM EST Telemedicine Genetics HemOnc, [facility] [address] [place] [address] Sofia Eldridge, MS 132 [place] [address] Scheduled Orders Name Type Priority Associated Diagnoses [...] 11/06/2019 Sigmoidoscopy 11/06/2019 COVID-19 Vaccine ( - season) 2024 Influenza Vaccine (FLU shot) (#1) [...] Primary documented in this encounter Care Teams Yard Hostler Relationship Specialty Start Date End Date Gordon Jewell EUGENIA Mckinney [facility] [place] [address] [place] [address] PCP - General Physician Manager Games 05/10/24 documented as of this encounter
--- OUTSIDE RECORDS SUMMARY | 2024-10-09 06:39 | External Medical Summary | Summary of Care ---
Author Name Unknown Organization [facility] Address [address] [facility] [address] Phone [phone] Care Team Providers Care Poultry Veterinarian Name Role Phone Jewell Leyva EUGENIA Primary Care Provider [phone] Reason for Visit * Reason Onset Date Comments Precert Future 06/14/2024 Ruff/Carbo/Taxol ---> Ruff/Doxo/Cyclo Encounter Details Date Type Department Care Team (Late st Contact Info) Description 06/14/2024 Telephone Hematology/Oncology [facility] [place] [address] [place] [address] Celia Beard MD 400 [facility] [place] [phone] Precert Future (Ruff/Carbo/Taxol [...] 1 08/14/2023 Food insecurity 05/31/2024 Overview: Per [facility] Protocol ASCUS with positive high risk [...] 4 hour appt "C1D1 keytruda, carbo, taxol" ([facility] Thanks! * Telephone Encounter - Demetrio García [...] 8:00 AM EST Office Visit General Surgery, [facility] [place] [address] Fawn Lindsay MD 132 [place] [address] 06/24/2024 11:30 AM EST Office Visit Hematology/Oncology [facility] 200 [place] [phone] Celia Beard MD [address] [place] [phone] 06/24/2024 3:00 PM EST Office Visit Plastic Surgery, [place] [address] [place] [address] Pratik Quinn MD [address] [place], [place] [phone] 09/16/2024 8:00 AM EST Telemedicine Genetics HemOnc, [facility] [address] [place], [place] [address] Sofia Eldridge, MS [address] [place] [address] Scheduled Orders Name Type Priority Associated Diagnoses [...] Primary documented in this encounter Care Teams Poultry Veterinarian Relationship Specialty Start Date End Date Gordon October EUGENIA Mckinney [address] [place] [address] PCP - General Physician Loss Prevention Representative 05/10/24 documented as of this encounter
--- OUTSIDE RECORDS SUMMARY | 2024-10-09 06:39 | External Medical Summary | Summary of Care ---
Author Name Unknown Organization [facility] Address [address] [facility] [address] Phone [phone] Care Team Providers Care Glass Beveller Name Role Phone Jewell Leyva EUGENIA Primary Care Provider [phone] Reason for Visit * Reason Comments Education Encounter Details Date Type Department Care Team (Late st Contact Info) Description 06/15/2024 2:00 PM EST Pt Ed by Nurse Hematology/Oncology [facility] Rayna [place] [address] [place] [phone] Nurse Rayna Hem Onc [facility] 200 [facility] [place] [address] Allergies Active Allergy Reactions Criticality Noted Date [...] 1 08/14/2023 Food insecurity 05/31/2024 Overview: Per [facility] Protocol ASCUS with positive high [...] as of this encounter Nursing Notes * Birgit Tafoya RN - 06/16/2024 8:39 AM EST Education complete. documented in this encounter Plan of Treatment Upcoming Encounters Date Type Department Care Team (Late st Contact Info) Description 06/22/2024 8:00 AM EST Office Visit General Surgery, [facility] [address] Fawn Lindsay MD 132 [place] [address] 06/24/2024 3:00 PM EST Office Visit Plastic Surgery, [place] [address] [place] [address] Pratik Quinn MD [address] [place] [address] 06/28/2024 9:20 AM EST Laboratory Laboratory [address] [place] [phone] [address] [address] 06/28/2024 10:30 AM EST Hem/Onc Treatment Hematology/Oncology Treatment, [place] [facility] [phone] 09/16/2024 8:00 AM EST Telemedicine Genetics HemOnc, [facility] 100 [place] [address] Sofia Eldridge, MS [address] [place] [address] Scheduled Procedures Name Priority Associated Diagnoses Date/Ti [...] filedocumented as of this encounter Care Teams Glass Beveller Relationship Specialty Start Date End Date GordonOctober EUGENIA Mckinney [address] [place] [address] PCP - General Physician Payroll Consultant 05/10/24 documented as of this encounter
--- OUTSIDE RECORDS SUMMARY | 2024-10-09 06:39 | External Medical Summary | Summary of Care ---
Author Name Unknown Organization [facility] Address [address] [place] [address] Phone [phone] Care Team Providers Care Sanding Machine Buffer Name Role Phone Jewell Leyva EUGENIA Primary Care Provider [phone] Reason for Visit * Reason Onset Date Comments Scheduling 06/15/2024 Encounter Details Date Type Department Care Team (Late st Contact Info) Description 06/15/2024 Telephone Hematology/Oncology, [facility] [address] [place] [address] Celia Beard MD 400 [place] [phone] Scheduling Allergies Active Allergy Reactions Criticality Noted [...] 1 08/14/2023 Food insecurity 05/31/2024 Overview: Per [facility] Protocol ASCUS with positive high risk [...] Called patient to schedule Mediport Insertion for GLH . No answer. Left message for patient to return call. documented in this encounter Plan of Treatment Upcoming Encounters Date Type Department Care Team (Late st Contact Info) Description 06/15/2024 11:00 AM EST Imaging Radiology [address] [place] [address] Arrived 06/15/2024 2:00 PM EST Pt Ed by Nurse Hematology/Oncology [facility] [place] [address] [place] [address] Nurse Rayna Hem Onc [facility] [address] [facility] [place] [address] 06/22/2024 8:00 AM EST Office Visit General Surgery, [facility] [address] [place] [address] Fawn Lindsay MD [address] [place] [address] 06/24/2024 11:30 AM EST Office Visit Hematology/Oncology [facility] [place] [address] [place] [address] Celia Beard MD [address] [place] [address] [place] [phone] 09/16/2024 8:00 AM EST Telemedicine Genetics HemOn, [facility] [address] [place] [address] Sofia [place]ridge, MS [address] [place] [address] Scheduled Procedures Name Priority Associated Diagnoses Date/Ti [...] filedocumented as of this encounter Care Teams Sanding Machine Buffer Relationship Specialty Start Date End Date Gordon October Faye, EUGENIA [address] [place] [address] PCP - General Physician Director Mba 05/10/24 documented as of this encounter
--- OUTSIDE RECORDS SUMMARY | 2024-10-09 06:39 | External Medical Summary | Summary of Care ---
Author Name Unknown Organization [facility] Address [address] [place] [address] Phone [phone] Care Team Providers Care Manager Of Data Name Role Phone Jewell Leyva EUGENIA Primary Care Provider [phone] Reason for Visit * Reason Onset Date Comments MyCode Consent 06/15/2024 Encounter Details Date Type Department Care Team (Late st Contact Info) Description 06/15/2024 Orders Only Outcomes Research Department [address] [place], [place] [phone] Yohana Zaragoza CHRA [employer] Research Other*[id number]* Allergies Active Allergy Reactions Criticality Noted Date [...] 1 08/14/2023 Food insecurity 05/31/2024 Overview: Per [facility] Protocol ASCUS with positive high risk [...] as of this encounter Progress Notes * Yohana Zaragoza CHRA - 06/15/2024 9:43 AM EST MyCode Consent Documentation Radha Fung provided consent/authorization to participate in the MyCode Project. documented in this encounter Plan of Treatment Upcoming Encounters Date Type Department Care Team (Late st Contact Info) Description 06/15/2024 2:00 PM EST Pt Ed by Nurse Hematology/Oncology [facility] [address] [place] [phone] Nurse Rayna Hem Onc [facility] [address] [place] [address] 06/22/2024 8:00 AM EST Office Visit General Surgery, [facility] [address] [place] [address] Fawn Lindsay MD [address] [place] [address] 06/24/2024 11:30 AM EST Office Visit Hematology/Oncology [facility] [place] [address] [place] [phone] Celia Beard MD [address] [place] [address] [place] [phone] 09/16/2024 8:00 AM EST Telemedicine Genetics HemOnc, [facility] 100 [place] [address] Sofia [place], MS [address] [place] [address] Scheduled Orders Name Type Priority Associated Diagnoses Orde r Schedule MYCODE INITIAL ADULT Lab Routine [employer] Research Other*[id number] Expected: 06/15/2024 (Approximate), Expires: 07/05/2025 Scheduled Procedures Name Priority Associated Diagnoses Date/Ti [...] as of this encounter Visit Diagnoses Diagnosis [employer] Other*[id number]- Primary documented in this encounter Care Teams Manager Of Data Relationship Specialty Start Date End Date Gordon October Faye, EUGENIA [address] [place] [address] PCP - General Physician Traffic Incident Management Manager 05/10/24 documented as of this encounter
--- OUTSIDE RECORDS SUMMARY | 2024-10-09 06:39 | External Medical Summary | Summary of Care ---
Author Name Unknown Organization [facility] Address [address] [place] [address] Phone [phone] Care Team Providers Care Commercial Fishing Vessel Operator Name Role Phone Jewell Leyva Faye BELLO Primary Care Provider [phone] Reason for Referral * Evaluate & Treat - Unlimited Visits (Within 30 days (routine)) - Authorized Specialty Diagnoses / Procedures Referred By Jacobo lo Referred To Contact Plastic Surgery Diagnoses Malignant neoplasm of upper-inner quadrant of left breast in female, estrogen receptor negative (HCC) Fawn Lindsay MD [address] [place] [address] Phone: tel: fax: Referral ID Status Reason Start Date Expiration Date Visits Requested Visits Authorized [id number] Authorized Specialty Services Required 4 999 999 [...] Contact Info) Description 06/15/2024 Telephone General Surgery, [facility] [address] [facility] [address] Fawn Lindsay MD [address] [place] [address] Allergies Active Allergy Reactions Criticality Noted Date [...] Telephone Encounter - Annie Espino LPN - 06/15/2024 9:22 AM EST Please reserve procedure room for 06/22/2024 at 8 am * Telephone Encounter - Fawn Lindsay MD [...] Description 06/15/2024 9:45 AM EST Imaging Radiology [facility] 1st [facility] [place] [address] 06/15/2024 2:00 PM EST Pt Ed by Nurse Hematology/Oncology [facility] [address] [place] [phone] Nurse Rayna Hem Onc [facility] [address] [place] [address] 06/22/2024 8:00 AM EST Office Visit General Surgery, [facility] 132 [facility] [place] [address] Fawn Lindsay MD 132 [facility] [place] [address] 06/24/2024 11:30 AM EST Office Visit Hematology/Oncology [facility] Rayna [place] [address] [place] [address] Celia Beard MD [address] [place] [address] [place] [address] 09/16/2024 8:00 AM EST Telemedicine Genetics HemOn, [address] [id number] Sofia [place], [place] [facility] [place] [address] Scheduled Procedures Name Priority Associated Diagnoses Date/Ti [...] Primary documented in this encounter Care Teams Commercial Fishing Vessel Operator Relationship Specialty Start Date End Date Gordon Jewell EUGENIA Mckinney [address] [place] [address] PCP - General Physician Venetian Blind Tape Cutter 05/10/24 documented as of this encounter
--- OUTSIDE RECORDS SUMMARY | 2024-10-09 06:39 | External Medical Summary | Summary of Care ---
Author Name Unknown Organization [facility] Address [address] [facility] [address] Phone [phone] Care Team Providers Care Recreation Officer Name Role Phone Jewell Leyva EUGENIA Primary Care Provider [phone] Reason for Visit * Reason Onset Date Comments Precert Future 06/14/2024 Ruff/Carbo/Taxol ---> Ruff/Doxo/Cyclo Encounter Details Date Type Department Care Team (Late st Contact Info) Description 06/14/2024 Telephone Hematology/Oncology [facility] [place] [address] [place] [address] Celia Beard MD 400 [facility] [place] [address] Precert Future [...] 1 08/14/2023 Food insecurity 05/31/2024 Overview: Per [facility] Protocol ASCUS with positive high risk [...] days 1, 8, 15 every 21 days. [place] updated. Left message for patient to return [...] 4 hour appt "C1D1 keytruda, carbo, taxol" (Blanquitaellamart) Thanks! * Telephone Encounter - Demetrio García [...] 8:00 AM EST Office Visit General Surgery, [facility] 132 [place] [place] [address] Fawn Lindsay MD 132 [facility] [address] 06/24/2024 3:00 PM EST Office Visit Plastic Surgery, [place] [address] [place] [address] Pratik Quinn MD [address] [place] [address] 06/28/2024 9:20 AM EST Laboratory Laboratory [facility] [place] [address] [place] [phone] Park, Lab [facility] 200 [facility] [place] [address] 06/28/2024 10:30 AM EST Hem/Onc Treatment Hematology/Oncology Treatment, [place] [address] [place] [phone] Rayna, Chair 5 Hem Onc Scenery [address] [place], [place] [address] 09/16/2024 8:00 AM EST Telemedicine Genetics HemOnc, [facility] [place] [address] [place] [address] Sofia [place]ridge, [place] [address] [place] [address] Scheduled Orders Name Type Priority Associated Diagnoses [...] Primary documented in this encounter Care Teams Recreation Officer Relationship Specialty Start Date End Date Gordon Jewell Faye, SAPNAC [address] [place] [address] PCP - General Physician Street Worker 05/10/24 documented as of this encounter
--- OUTSIDE RECORDS SUMMARY | 2024-10-09 06:39 | External Medical Summary | Summary of Care ---
Author Name Unknown Organization [facility] Address [address] [place] [address] Phone [phone] Care Team Providers Care Emergency Medicine Nurse Practitioner Name Role Phone Jewell Leyva EUGENIA Primary Care Provider [phone] Encounter Details Date Type Department Care Team (Late st Contact Info) Description 06/15/2024 Orders Only Hematology/Oncology, [facility] 400 [facility] [place] [phone] Celia Beard MD 400 [place] [address] Malignant neoplasm of overlapping sites of [...] 1 08/14/2023 Food insecurity 05/31/2024 Overview: Per [facility] Protocol ASCUS with positive high risk [...] Description 06/15/2024 9:45 AM EST Imaging Radiology [address] [place] [address] 06/15/2024 2:00 PM EST Pt Ed by Nurse Hematology/Oncology [facility] [address] [place] [phone] Nurse Rayna Hem Onc Scenery [address] [place] [address] 06/22/2024 8:00 AM EST Office Visit General Surgery, [facility] 132 [place] [address] Fawn Lindsay MD 132 [place] [address] 06/24/2024 11:30 AM EST Office Visit Hematology/Oncology [facility] Rayna [place] [address] [place] [phone] Celia Beard MD [address] [place] [address] [place] [address] 09/16/2024 8:00 AM EST Telemedicine Genetics HemOnc, [facility] [address] [place] [address] Sofia Eldridge, MS [address] [place] [address] Scheduled Procedures Name Priority Associated Diagnoses Date/Ti [...] Primary documented in this encounter Care Teams Emergency Medicine Nurse Practitioner Relationship Specialty Start Date End Date Gordon Jewell EUGENIA Mckinney [address] [place] [address] PCP - General Physician Nuclear Design Engineer 05/10/24 documented as of this encounter
--- OUTSIDE RECORDS SUMMARY | 2024-10-09 06:39 | External Medical Summary | Summary of Care ---
Author Name Unknown Organization [facility] Address [address] [place] [facility] [address] Phone [phone] Care Team Providers Care Monitoring Analyst Name Role Phone Jewell Leyva EUGENIA Primary Care Provider [phone] Reason for Visit * Reason Onset Date Comments Medication Refill 06/15/2024 Encounter Details Date Type Department Care Team (Late st Contact Info) Description 06/15/2024 Refill Hematology/Oncology Treatment, [place] [address] [place] [address] Celia Beard MD [address] [place], [place] [address] [phone] Malignant neoplasm of overlapping sites of left [...] Pain, Severe. 90 Tablet 06/14/20 24 Active diphenhydrAMINE HCl 25 MG Oral [...] paclitaxel infusion. 12 Tablet 06/15/20 24 Active dexAMETHasone 4 MG Oral Tablet (Decadron)Indicati ons:Malignant neoplasm of overlapping sites of left breast in female, estrogen receptor negative (HCC),Encounter for antineoplastic chemotherapy,Preve ntion of chemotherapy-induc ed neutropenia Take 2 Tablets by mouth in the morning for 3 days. With food on days 2, 3, and 4 of chemo and as directed.. Do not start before June 16, 2024. 24 Tablet 06/16/20 24 024 Active Prochlorperazine Maleate 10 MG Oral Tablet (Compazine)Indicat ions:Malignant neoplasm of overlapping sites of left breast in female, estrogen receptor negative (HCC),Encounter for antineoplastic chemotherapy,Preve ntion of chemotherapy-induc ed neutropenia Take 1 Tablet by mouth every 6 hours as needed for Nausea. 30 Tablet 5 06/15/20 24 Active OLANZapine 10 MG Oral Tablet (zyPREXA)Indicatio ns:Malignant neoplasm of overlapping sites of left breast in female, estrogen receptor negative (HCC),Encounter for antineoplastic chemotherapy,Preve ntion of chemotherapy-induc ed neutropenia Take 1 Tablet by mouth at bedtime for 4 days. On days 1, 2, 3, and 4 of chemo. 16 Tablet 06/15/20 24 024 Active Lidocaine-Prilocai ne 2.5-2.5 % External Cream [...] Nausea. 30 Tablet 3 06/15/20 24 Active documented as of this encounter (statuses as of 06/15/2024) Active Problems Problem Noted Date Diagnosed Date Malignant neoplasm of overla pping sites of left breast in female, estrogen receptor negative 06/14/2024 Encounter for antineoplastic chemotherapy 2023 Prevention of chemotherapy-induced neutropenia 1 08/14/2023 Food insecurity 05/31/2024 Overview: Per [facility] Protocol ASCUS with positive high [...] Encounter - Birgit Tafoya RN - 06/15/2024 3:58 PM EST Pended DAVID reagan claritin documented in this encounter Plan of Treatment Upcoming Encounters Date Type Department Care Team (Late st Contact Info) Description 06/22/2024 8:00 AM EST Office Visit General Surgery, [facility] 132 [place] [address] Fawn Lindsay MD 132 [place] [address] 06/24/2024 3:00 PM EST [facility] [address] [place] [address] Pratik Quinn MD [address] [place] [address] 06/28/2024 9:20 AM EST Laboratory Laboratory [facility] [address] [facility] [place] [address] Rayna, Lab Scenery [address] [facility] [place] [address] 06/28/2024 10:30 AM EST Hem/Onc Treatment Hematology/Oncology Treatment, [place] [address] [place] [address] Rayna, Chair 5 Hem Onc Scenery [address] [place] [address] 09/16/2024 8:00 AM EST Telemedicine Genetics HemOnc, [facility] [address] [place] [address] Sofia [place]ridge, [place] [address] [facility] [address] Scheduled Procedures Name Priority Associated Diagnoses Date/Ti [...] neutropenia documented in this encounter Care Teams Monitoring Analyst Relationship Specialty Start Date End Date GordonOctober EUGENIA Mckinney [address] [place] [address] PCP - General Physician Implementation Analyst 05/10/24 documented as of this encounter
--- OUTSIDE RECORDS SUMMARY | 2024-10-09 06:39 | External Medical Summary | Summary of Care ---
Author Name Unknown Organization [facility] Address [address] [place] [address] Phone [phone] Care Team Providers Care Opener Name Role Phone Jewell Leyva Faye BELLO Primary Care Provider [phone] Reason for Referral * Evaluate & Treat - Unlimited Visits (Within 30 days (routine)) - Authorized Specialty Diagnoses / Procedures Referred By Jacobo lo Referred To Contact Plastic Surgery Diagnoses Malignant neoplasm of upper-inner quadrant of left breast in female, estrogen receptor negative (HCC) Fawn Lindsay MD [address] [place] [address] Phone: tel: fax: Referral ID Status Reason Start Date Expiration Date Visits Requested Visits Authorized [id number] Authorized Specialty Services Required 4 [phone] [...] Contact Info) Description 06/15/2024 Telephone General Surgery, [facility] [address] [facility] [address] Fawn Lindsay MD [address] [place] [address] Allergies Active Allergy Reactions Criticality Noted Date [...] Telephone Encounter - Natalie Parks OSA - 06/15/2024 9:38 AM EST Changed to procedure * Telephone Encounter - Annie Espino LPN [...] Description 06/15/2024 9:45 AM EST Imaging Radiology [facility] 1st [facility] [place] [address] Arrived 06/15/2024 2:00 PM EST Pt Ed by Nurse Hematology/Oncology [facility] [address] [place] [phone] Nurse Rayna Hem Onc [facility] [address] [place] [address] 06/22/2024 8:00 AM EST Office Visit General Surgery, [facility] [address] [place] [address] Fawn Lindsay MD 132 [facility] [place] [address] 06/24/2024 11:30 AM EST Office Visit Hematology/Oncology [facility] Rayna [place] [address] [place] [phone] Celia Beard MD [address] [place] [phone] 09/16/2024 8:00 AM EST Telemedicine Genetics HemOn, [facility] 100 [place] [address] Sofia [place], MS [address] [place] [address] Scheduled Procedures Name Priority Associated Diagnoses Date/Ti [...] Primary documented in this encounter Care Teams Opener Relationship Specialty Start Date End Date GordonOctober EUGENIA Mckinney [address] [place] [address] PCP - General Physician Fork Repairer 05/10/24 documented as of this encounter
--- OUTSIDE RECORDS SUMMARY | 2024-10-09 06:39 | External Medical Summary | Summary of Care ---
Author Name Unknown Organization [facility] Address [address] [facility] [address] Phone [phone] Care Team Providers Care Garland Maker Name Role Phone Jewell Leyva EUGENIA Primary Care Provider [phone] Reason for Visit * Reason Onset Date Comments Precert Future 06/14/2024 Ruff/Carbo/Taxol ---> Ruff/Doxo/Cyclo Encounter Details Date Type Department Care Team (Late st Contact Info) Description 06/14/2024 Telephone Hematology/Oncology [facility] [place] [address] [place] [address] Celia Beard MD 400 [facility] [place] [phone] Precert Future (Ruff/Carbo/Taxol [...] 1 08/14/2023 Food insecurity 05/31/2024 Overview: Per [facility] Protocol ASCUS with positive high risk [...] days 1, 8, 15 every 21 days. [place] updated. Left message for patient to return [...] 8:00 AM EST Office Visit General Surgery, [facility] 132 [place] [address] Fawn Lindsay MD 132 [place] [address] 06/24/2024 3:00 PM EST Office Visit Plastic Surgery, [place] [address] [place] [address] Pratik Quinn MD [address] [place] [address] 06/28/2024 9:20 AM EST Laboratory Laboratory [facility] 200 [place] [phone] Scenery [address] [place] [address] 06/28/2024 10:30 AM EST Hem/Onc Treatment Hematology/Oncology Treatment, [place] [address] [place] [phone] Rayna, Chair 5 Hem Onc Scenery [address] [place] [address] 09/16/2024 8:00 AM EST Telemedicine Genetics HemOnc, [facility] 100 [place] [address] Sofia [place], [place] [address] [place] [address] Scheduled Orders Name Type Priority Associated Diagnoses [...] Primary documented in this encounter Care Teams Garland Maker Relationship Specialty Start Date End Date GordonOctober EUGENIA Mckinney [address] [place] [address] PCP - General Physician Manufacturing Baker 05/10/24 documented as of this encounter
--- OUTSIDE RECORDS SUMMARY | 2024-10-09 06:40 | External Medical Summary | Summary of Care ---
Author Name Unknown Organization [facility] Address [address] [facility] [place] [address] Phone [phone] Care Team Providers Care Salesperson Wigs Name Role Phone Jewell Leyva EUGENIA Primary Care Provider [phone] Encounter Details Date Type Department Care Team (Late st Contact Info) Description 06/14/2024 Orders Only [facility]ematology/[facility] [place] 200 [facility] [phone] Celia Beard MD 400 [facility] [place] [phone] Allergies Active Allergy Reactions Criticality Noted Date Comments Vancomycin Low 03/16/2022 documented as of this encounter (statuses as of 06/14/2024) Medications MULTIVITAMINS PO TABS one a day [...] as of this encounter (statuses as of 06/14/2024) Active Problems Problem Noted Date Diagnosed Date Malignant neoplasm of overla pping sites of left breast in female, estrogen receptor negative 06/14/2024 Encounter for antineoplastic chemotherapy 2023 Prevention of chemotherapy-induced neutropenia 1 08/14/2023 Food insecurity 05/31/2024 Overview: Per [email or web address] Protocol ASCUS with positive high risk HPV cervical 06/04 Major depressive disorder, r ecurrent severe without psychotic features 04/10/2023 Major depressive disorder, single episode, moder ate 06/07/2021 Encounter for other general counseling or advice on contraception 04/27/2010 Overview (04/20/2024): ICD-10 update of inactive term documented as of this encounter (statuses as of 06/14/2024) Resolved Problems Problem Noted Date Diagnosed Date Resolved Date Current mild episode of chente r depressive disorder without prior episode 08/19/2018 4 ABN PAP SMEAR-CERVIX 999 Encounter for supervision of other normal 05/28/2016 Overview (11/21/2015): ICD-10 update of inactive term documented as of this encounter (statuses as of 06/14/2024) Immunizations Name Administration Dates Next Due TD [...] Description 06/15/2024 9:45 AM EST Imaging Radiology [address] [facility] [place] [address] 06/15/2024 2:00 PM EST Pt Ed by Nurse Hematology/Oncology [facility] [address] [place] [phone] Nurse Rayna Hem Onc [facility] [address] [place] [address] 06/22/2024 8:00 AM EST Office Visit General Surgery, [facility] 132 [facility] [place] [address] Fawn Lindsay MD 132 [facility] [place] [address] 06/24/2024 11:30 AM EST Office Visit Hematology/Oncology [facility] [address] [place] [phone] Celia Beard MD [address] [place], [place] [address] [phone] 09/16/2024 8:00 AM EST Telemedicine Genetics HemOnc, [address] [address] Sofia Eldridge, [place] 132 [facility] [place] [address] Scheduled Procedures Name Priority Associated Diagnoses Date/Ti [...] filedocumented as of this encounter Care Teams Salesperson Wigs Relationship Specialty Start Date End Date Gordon October EUGENIA Mckinney [address] [place] [address] PCP - General Physician Box Closing Machine Operator 05/10/24 documented as of this encounter
--- OUTSIDE RECORDS SUMMARY | 2024-10-09 06:40 | External Medical Summary ---
Author Name Unknown Address Unknown Organization K01:LABORATORY C - [address] [place] [address] Laboratory Report Ordering Provider Test Date Status GENE RUIZ 06/14/2024 12:50:51 Final Observation Date Value Abnormality Reference (Units ) Status CEA 06/14/2024 12:50:51 1.0 <=5.2 (ng/ mL) Final Performing Location [facility] - [address] [place] [address]
--- OUTSIDE RECORDS SUMMARY | 2024-10-09 06:40 | External Medical Summary | Summary of Care ---
Author Name Unknown Organization [facility] Address [address] [facility] [address] Phone [phone] Care Team Providers Care Machine Heel Seat Laster Name Role Phone Jewell Leyva EUGENIA Primary Care Provider [phone] Reason for Visit * Reason Onset Date Comments Precert Future 06/14/2024 Ruff/Carbo/Taxol ---> Ruff/Doxo/Cyclo Encounter Details Date Type Department Care Team (Late st Contact Info) Description 06/14/2024 Telephone Hematology/Oncology [facility] [place] [address] [place] [address] Celia Beard MD 400 [facility] [place] [phone] Precert Future (Ruff/Carbo/Taxol [...] 1 08/14/2023 Food insecurity 05/31/2024 Overview: Per [facility] Protocol ASCUS with positive high risk [...] Team (Late st Contact Info) Description 06/14/2024 2:30 PM EST Cardiac Studies Cardiac Studies, [address] [place] [address] 06/15/2024 9:45 AM EST Imaging Radiology [facility] 1st [facility], [address] [place] [address] 06/15/2024 2:00 PM EST Pt Ed by Nurse Hematology/Oncology [facility] Rayna [place] [address] [place], [place] [phone] Nurse Rayna Hem Onc [facility] [address] [place] [address] 06/22/2024 8:00 AM EST Office Visit General Surgery, [facility] [address] [facility] [place] [address] Fawn Lindsay MD [address] [place] [address] 06/24/2024 11:30 AM EST Office Visit Hematology/Oncology [facility] [place] [address] [place] [address] Celia Beard MD [address] [place] [phone] 09/16/2024 8:00 AM EST Telemedicine Genetics HemOnc, [address] [address] Sofia [place]ridge, [place] [address] [place] [address] Scheduled Orders Name Type Priority Associated Diagnoses [...] Additional history exists Depression Monitoring 05/17/2025 05/17/2024 Diabetes Screening 04/10/2026 04/10/2023, 1 08/11/2020, 09/21/2020, Additional history exists Pap Smear 06/04/2026 06/04/2023, 07/23, 12/21/2015, Additional history exists Cervical Cancer Screening 06/04/2028 [...] Primary documented in this encounter Care Teams Machine Heel Seat Laster Relationship Specialty Start Date End Date Gordon October EUGENIA Mckinney [address] [place] [address] PCP - General Physician Protocol Manager 05/10/24 documented as of this encounter
--- OUTSIDE RECORDS SUMMARY | 2024-10-09 06:40 | External Medical Summary | Summary of Care ---
Author Name Unknown Organization [facility] Address [address] [place] [address] Phone [phone] Care Team Providers Care Log Preparer Name Role Phone Jewell Leyva EUGENIA Primary Care Provider [phone] Reason for Referral * Precert (Within 10 days (routine)) - Authorized Specialty Diagnoses / Procedures Referred By Contac t Referred To Contact Radiology Diagnoses Malignant neoplasm of upper-inner quadrant of left breast in female, estrogen receptor negative (HCC) Procedures MRI BREAST BILATERAL W WO CONTRAST Fawn Lindsay MD [address] [place] [address] Phone: tel: fax: Referral ID Status Reason Start Date Expiration Date V isits Requested Visits Authorized [id number] Authorized 06/15/2024 999 999 * Evaluate & Treat - Unlimited Visits (Within 3 days (urgent)) - Authorized Specialty Diagnoses / Procedures Referred By Contyesica t Referred To Contact Hematology/Oncology / Hematology Oncology Diagnoses Malignant neoplasm of upper-inner quadrant of left breast in female, estrogen receptor negative (HCC) Fawn Lindsay MD [address] [place] [address] Phone: tel: fax: Referral ID Status Reason Start Date Expiration Date Visits Requested Visits Authorized [id number] Authorized Specialty Services Required 4 999 999 Question Answer Referral Priority Within 3 days (urgent) Where should this appointment be scheduled? [facility] Reason for Referral Malignant Oncology (Solid Organ Cancer) Comments Consider for neoadjuvant chemotherapy Very aggressive, enlarging breast ca Receptors pending but ER neg * Evaluate & Treat - Unlimited Visits (Within 3 days (urgent)) - Authorized Specialty Diagnoses / Procedures Referred By Contac t Referred To Contact Medical Genetics / Hematology Oncology Diagnoses Malignant neoplasm of upper-inner quadrant of left breast in female, estrogen receptor negative (HCC) Fawn Lindsay MD [address] [place] [address] Phone: tel: fax: Referral ID Status Reason Start Date Expiration Date Visits Requested Visits Authorized [id number] Authorized Specialty Services Required 4 999 999 Question Answer Referral Priority Within 3 days (urgent) Where should this appointment be scheduled? [facility] Is this referral request related to one of the following genetics sub-specialties? If unsure of category, use Medical Genetics Ask-A-Doc. Cancer Personal history of cancer? Yes Type of cancer and age at diagnosis: breast cancer age 48 Family history of cancer? No Has patient OR family member had genetic testing previously? No Comments Breast cancer age 48, will affect surgical decision making Reason for Visit * Reason Onset Date Comments Appointment 06/08/2024 Encounter Details Date Type Department Care Team (Late st Contact Info) Description 06/08/2024 Telephone General Surgery, [facility] [address] [place] [address] Fawn Lindsay MD [address] [place] [address] Appointment Allergies Active Allergy Reactions Criticality Noted Date Comments Vancomycin Low 03/16/2022 documented as of this encounter (statuses as of 06/08/2024) Medications MULTIVITAMINS PO TABS one a day [...] the morning. 90 Tablet 1 4 Active documented as of this encounter (statuses as of 06/08/2024) Active Problems Problem Noted Date Diagnosed Date Food insecurity 05/31/2024 Overview: Per [facility] Protocol ASCUS with positive high risk HPV cervical 06/04 Major depressive disorder, r ecurrent severe without psychotic features 04/10/2023 Major depressive disorder, single episode, moder ate 06/07/2021 Encounter for other general counseling or advice on contraception 04/27/2010 Overview (04/20/2024): ICD-10 update of inactive term documented as of this encounter (statuses as of 06/08/2024) Resolved Problems Problem Noted Date Diagnosed Date Resolved Date Current mild episode of chente r depressive disorder without prior episode 08/19/2018 4 ABN PAP SMEAR-CERVIX 999 Encounter for supervision of other normal 05/28/2016 Overview (11/21/2015): ICD-10 update of inactive term documented as of this encounter (statuses as of 06/08/2024) Immunizations Name Administration Dates Next Due TD [...] encounter Miscellaneous Notes * Telephone Encounter - Radha Sinclair OSA - 06/08/2024 2:06 PM EST Lmam to schedule a new onc appt tomorrow 06/09 or 06/10. * Telephone Encounter - Fawn Lindsay MD - 06/08/2024 12:55 PM EST Pathology discussed with pt. Invasive ductal cancer. Ajit Gifford, Noam - could you please see her quickly? Aggressive enlarging cancer. ER neg - other receptors pending. ? Neoadjuvant chemo Genetics ordered. MRI breast ordered. Natalie, could you help with scheduling and get her an appt to see me (30- 45 min please)? Thank you! A. Breast, Left, left breast 11:00 9cm FN - palpable, core biopsy: Invasive ductal carcinoma, histologic grade 3, associated extensive necrosis Predictive markers ordered at 1024 Order Comments Enlarging complex solid and cystic mass left breast 11:00 concerning for malignancy documented in this encounter Plan of Treatment Scheduled Orders Name Type Priority Associated Diagnoses Orde r Schedule MRI BREAST BILATERAL W WO CONTRAST Medical Imaging Routine Malignant neoplasm of upper-inner quadrant of left breast in female, estrogen receptor negative (HCC) Expected: 06/15/2024 (Approximate), Expires: 07/08/2025 Scheduled Procedures Name Priority Associated Diagnoses Date/Ti me COLONOSCOPY FLEXIBLE PROXIMAL DIAGNOSTIC Recall Screen for colon cancer Scheduled Referrals Name Type Priority Associated Diagnoses Orde r Schedule GENETICS REFERRAL OP Referral Within 3 days (urgent) Malignant neoplasm of upper-inner quadrant of left breast in female, estrogen receptor negative (HCC) Ordered: 06/08/2024 HEMATOLOGY/ONCOLOGY REFERRAL OP Referral Within 3 days (urgent) Malignant neoplasm of upper-inner quadrant of left breast in female, estrogen receptor negative (HCC) Ordered: 06/08/2024 Health Maintenance Due Date Last Done Comments [...] Primary documented in this encounter Care Teams Log Preparer Relationship Specialty Start Date End Date Jewell Leyva PA-C [address] [place] [address] PCP - General Physician Advertising Associate 05/10/24 documented as of this encounter
--- OUTSIDE RECORDS SUMMARY | 2024-10-09 06:40 | External Medical Summary ---
Author Name Unknown Address Unknown Organization K09:[facility] [place] [place] [address] Laboratory Report Ordering Provider Test Date Status GENE RUIZ 06/14/2024 12:50:51 Final Observation Date Value Abnormality Reference (Units ) Status BUN 06/14/2024 12:50:51 19 6-20 (mg/dL) Final Creatinine 06/14/2024 12:50:51 0.9 0.5-1.0 (mg/dL) Final Glomerular filtration rate/1.73 sq M.predicted [Volume Rate/Area] in Serum, Plasma or Blood by Creatinine-based formula (CKD-EPI) 06/14/2024 12:50:51 74 >=60 (mL/min) Final eGFR is calculated based on the CKD-EPI 2020 equation. Sodium 06/14/2024 12:50:51 142 135-146 (m mol/L) Final Potassium 06/14/2024 12:50:51 4.0 3.5-5.1 (m mol/L) Final Cl 06/14/2024 12:50:51 104 98-107 (mm ol/L) Final CO2 06/14/2024 12:50:51 27 22-32 (mmo l/L) Final Anion gap 06/14/2024 12:50:51 11 7-15 (mmol /L) Final Glucose 06/14/2024 12:50:51 114 70-120 (mg /dL) Final Albumin 06/14/2024 12:50:51 4.4 3.8-5.0 (g /dL) Final AST (Aspartate aminotransferase) 06/14/2024 12:50:51 23 10-35 (U/L) Final Alk Phos 06/14/2024 12:50:51 108 35-130 (U/ L) Final Bilirubin, Total 06/14/2024 12:50:51 0.3 <=1 .2 (mg/dL) Final Calcium 06/14/2024 12:50:51 9.6 8.4-10.2 ( mg/dL) Final Protein 06/14/2024 12:50:51 7.1 6.0-8.3 (g /dL) Final ALT (Alanine aminotransferase) 06/14/2024 12:50:51 33 10-35 (U/L) Final Performing Location [facility] [place] [address] [place] [address]
--- OUTSIDE RECORDS SUMMARY | 2024-10-09 06:40 | External Medical Summary ---
Author Name Unknown Address Unknown Organization K01[facility] [address] [place] [address] Laboratory Report Ordering Provider Test Date Status SARAEMMANUELLEHARLEYDARYL 06/14/2024 12:50:51 Final Observation Date Value Abnormality Reference (Units ) Status Hepatitis B virus core Ab [Presence] in Serum 06/14/2024 12:50:51 Negative Negative Final Performing Location [facility] [place] [address] [facility] [address]
--- OUTSIDE RECORDS SUMMARY | 2024-10-09 06:40 | External Medical Summary | Summary of Care ---
Author Name Unknown Organization [facility] Address [address] [address] Phone [phone] Care Team Providers Care Engineer Booster And Exhauster Name Role Phone Jewell Leyva EUGENIA Primary Care Provider [phone] Reason for Visit * Reason Onset Date Comments Precert Future 06/14/2024 Ruff/Carbo/Taxol ---> Ruff/Doxo/Cyclo Encounter Details Date Type Department Care Team (Late st Contact Info) Description 06/14/2024 Telephone Hematology/Oncology [facility] [place] [address] [place] [address] Celia Beard MD [address] [facility] [place] [address] Precert Future [...] 1 08/14/2023 Food insecurity 05/31/2024 Overview: Per [facility] Protocol ASCUS with positive high risk [...] 2:30 PM EST Cardiac Studies Cardiac Studies, [address] [place] [address] 06/15/2024 9:45 AM EST Imaging Radiology [facility] 1st [facility], [address] [place] [address] 06/15/2024 2:00 PM EST Pt Ed by Nurse Hematology/Oncology [facility] Rayna [place] [address] [place], [place] [phone] Nurse Rayna Hem Onc [facility] [address] [place] [address] 06/22/2024 8:00 AM EST Office Visit General [facility] [address] [facility] [place] [address] Fawn Lindsay MD [address] [place] [address] 06/24/2024 11:30 AM EST Office Visit Hematology/Oncology [facility] [place] [address] [place] [address] Celia Beard MD [address] [place] [phone] 09/16/2024 8:00 AM EST Telemedicine Genetics HemOnc, [address] [address] Sofia Eldridge, [place] [address] [facility] [place] [address] Scheduled Orders Name Type Priority Associated Diagnoses [...] Primary documented in this encounter Care Teams Engineer Booster And Exhauster Relationship Specialty Start Date End Date Gordon October EUGENIA Mckinney [address] [place] [address] PCP - General Physician Dairy Helper 05/10/24 documented as of this encounter
--- OUTSIDE RECORDS SUMMARY | 2024-10-09 06:40 | External Medical Summary ---
Author Name Unknown Address Unknown Organization K01:[facility] [address] [place] [address] Laboratory Report Ordering Provider Test Date Status GENE RUIZ 06/14/2024 12:50:51 Final Observation Date Value Abnormality Reference (Units ) Status LDH 06/14/2024 12:50:51 297 Above high normal <= 250 (U/L) Final Performing Location [facility] - [address] [place] [address]
--- OUTSIDE RECORDS SUMMARY | 2024-10-09 06:40 | External Medical Summary | Summary of Care ---
Author Name Unknown Organization [facility] Address [address] [place] [address] Phone [phone] Care Team Providers Care Checker Cashier Name Role Phone Jewell Leyva EUGENIA Primary Care Provider [phone] Reason for Referral * Precert (Within 10 days (routine)) - Authorized Specialty Diagnoses / Procedures Referred By Contac t Referred To Contact Radiology Diagnoses Malignant neoplasm of upper-inner quadrant of left breast in female, estrogen receptor negative (HCC) Procedures MRI BREAST BILATERAL W WO CONTRAST Fawn Lindsay MD [address] [place] [address] Phone: tel: fax: Referral ID Status Reason Start Date Expiration Date V isits Requested Visits Authorized [id number] Authorized 06/15/2024 999 999 * Evaluate & Treat - Unlimited Visits (Within 3 days (urgent)) - Authorized Specialty Diagnoses / Procedures Referred By Contyesica t Referred To Contact Hematology/Oncology / Hematology Oncology Diagnoses Malignant neoplasm of upper-inner quadrant of left breast in female, estrogen receptor negative (HCC) Fawn Lindsay MD [address] [place] [address] Phone: tel: fax: Referral ID Status Reason Start Date Expiration Date Visits Requested Visits Authorized [id number] Authorized Specialty Services Required 4 999 999 [...] receptor negative (HCC) Fawn Lindsay MD [address] [place] [address] Phone: tel: fax: Referral ID Status Reason Start Date Expiration Date Visits Requested Visits Authorized [id number] Authorized Specialty Services Required 4 999 999 [...] age 48, will affect surgical decision making Encounter Details Date Type Department Care Team (Late st Contact Info) Description 06/08/2024 Telephone General Surgery, [facility] [address] [place] [address] Fawn Lindsay MD [address] [place] [address] Allergies Active Allergy Reactions Criticality Noted Date [...] Diagnosed Date Food insecurity 05/31/2024 Overview: Per [facility] Protocol ASCUS with positive high risk [...] Primary documented in this encounter Care Teams Checker Cashier Relationship Specialty Start Date End Date GordonOctober EUGENIA Mckinney [address] [place] [address] PCP - General Physician Bacteriology Technician 05/10/24 documented as of this encounter
--- OUTSIDE RECORDS SUMMARY | 2024-10-09 06:40 | External Medical Summary | Summary of Care ---
Author Name Unknown Organization [facility] Address [address] [place] [place] [address] Phone [phone] Care Team Providers Care Stacking Machine Operator Name Role Phone Jewell Leyva Faye BELLO Primary Care Provider [phone] Encounter Details Date Type Department Care Team (Late st Contact Info) Description 06/14/2024 Telephone Hematology/Oncology, [facility] [address] [place] [address] Celia Beard MD [address] [place] [address] Allergies Active Allergy Reactions Criticality Noted [...] negative 06/14/2024 Encounter for antineoplastic chemotherapy 2023 Food insecurity 05/31/2024 Overview: Per [facility] Protocol ASCUS with positive high risk [...] Telephone Encounter - Atiya Tillman OSA - 06/14/2024 12:35 PM EST IR VENOUS ACCESS MEDIPORT Status: Needs Scheduling Requested appt date: Authorizing: Celia Beard MD in [facility] Referral: [id number] (Authorized) Priority: Routine Diagnosis: Malignant neoplasm of overlapping sites of left breast in female, 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 documented in this encounter Plan of Treatment Upcoming Encounters Date Type Department Care Team (Late st Contact Info) Description 06/14/2024 2:30 PM EST Cardiac Studies Cardiac Studies, [facility] 132 [facility] [place] [address] 06/15/2024 9:45 AM EST Imaging [facility] [address] [facility] [place] [address] 06/22/2024 8:00 AM EST Office Visit General Surgery, [facility] [address] [facility] [place] [address] Fawn Lindsay MD [address] [place] [address] 06/24/2024 11:30 AM EST Office Visit Hematology/Oncology [facility] [address] [place] [phone] Celia Beard MD [address] [place] [phone] 09/16/2024 8:00 AM EST Telemedicine Genetics HemOnc, [address] [address] Sofia Eldridge, [place] [address] [place] [address] Scheduled Procedures Name Priority Associated Diagnoses Date/Ti [...] filedocumented as of this encounter Care Teams Stacking Machine Operator Relationship Specialty Start Date End Date GordonOctober EUGENIA Mckinney [address] [place], [place] [address] PCP - General Physician Videotape Operator 05/10/24 documented as of this encounter
--- OUTSIDE RECORDS SUMMARY | 2024-10-09 06:40 | External Medical Summary | Summary of Care ---
Author Name Unknown Organization [facility] Address [address] [place] [address] Phone [phone] Care Team Providers Care Director Of Outpatient Services Name Role Phone Jewell Leyva EUGENIA Primary Care Provider [phone] Reason for Referral * Precert (Within 10 days (routine)) - Authorized Specialty Diagnoses / Procedures Referred By Contac t Referred To Contact Radiology Diagnoses Malignant neoplasm of upper-inner quadrant of left breast in female, estrogen receptor negative (HCC) Procedures MRI BREAST BILATERAL W WO CONTRAST Fawn Lindsay MD [address] [place] [address] Phone: tel: fax: Referral ID Status Reason Start Date Expiration Date V isits Requested Visits Authorized [id number] Authorized 06/15/2024 999 999 * Evaluate & Treat - Unlimited Visits (Within 3 days (urgent)) - Authorized Specialty Diagnoses / Procedures Referred By Contyesica t Referred To Contact Hematology/Oncology / Hematology Oncology Diagnoses Malignant neoplasm of upper-inner quadrant of left breast in female, estrogen receptor negative (HCC) Fawn Lindsay MD [address] [place] [address] Phone: tel: fax: Referral ID Status Reason Start Date Expiration Date Visits Requested Visits Authorized [id number] Authorized Specialty Services Required 4 999 999 [...] receptor negative (HCC) Fawn Lindsay MD [address] [employer] [place] [address] Phone: tel: fax: Referral ID Status Reason Start Date Expiration Date Visits Requested Visits Authorized [id number] Authorized Specialty Services Required 4 999 999 [...] Contact Info) Description 06/08/2024 Telephone General Surgery, [facility] [address] [place] [address] Fawn Lindsay MD [address] [employer] [place] [address] Appointment Allergies Active Allergy Reactions Criticality Noted [...] Diagnosed Date Food insecurity 05/31/2024 Overview: Per [facility] Protocol ASCUS with positive high [...] Telephone Encounter - Natalie Parks OSA - 06/08/2024 2:20 PM EST MRI is scheduled on 06/10/24 OV is scheduled on 06/22/24 for 30 min. * Telephone Encounter - Radha Sinclair OSA [...] Care Team (Late st Contact Info) Description 06/10/2024 8:00 AM EST Imaging Radiology [facility] 132 [facility] [place] [address] 06/22/2024 8:00 AM EST Office Visit General Surgery, [address] [place] [address] Fawn Lindsay MD [address] [place] [address] Scheduled Orders Name Type Priority Associated Diagnoses [...] Primary documented in this encounter Care Teams Director Of Outpatient Services Relationship Specialty Start Date End Date Gordon October EUGENIA Mckinney [facility] [address] [place] [address] PCP - General Physician Plating Technician 05/10/24 documented as of this encounter
--- OUTSIDE RECORDS SUMMARY | 2024-10-09 06:40 | External Medical Summary | Summary of Care ---
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, estrogen receptor negative (HCC) Procedures ECHO, COMPLETE (2D), TRANS-THORACIC Celia Beard MD [address] [place] [address] Phone: tel: fax: Referral ID Status Reason Start Date Expiration Date V isits Requested Visits Authorized [id number] Authorized Precert 06/14/2024 999 999 Reason for Visit * Reason Onset Date Comments Cardiology Study 06/14/2024 Encounter Details Date Type Department Care Team (Late st Contact Info) Description 06/14/2024 Telephone Cardiac Studies, [facility] [address] [facility] [place] [address] Celia Beard MD [address] [place] [phone] Cardiology Study Allergies Active Allergy Reactions Criticality Noted Date [...] Description 06/15/2024 9:45 AM EST Imaging Radiology [address] [place] [address] 06/15/2024 2:00 PM EST Pt Ed by Nurse Hematology/Oncology [address] [place] [address] [place] [address] Rayna Nurse Hem Onc [address] [place] [address] 06/22/2024 8:00 AM EST Office Visit General Surgery, [facility] [address] [place] [address] Fawn Lindsay MD [address] [place] [address] 06/24/2024 11:30 AM EST Office Visit Hematology/Oncology [address] [place] [facility] [address] Celia Beard MD [address] [place] [address] 09/16/2024 8:00 AM EST Telemedicine Genetics HemOnc, [facility] [address] [place] [address] Sofia Eldridge, [place] [address] [facility] [place] [address] Pending Results Name Type Priority Associated Diagnoses Date /Time ECHO, COMPLETE (2D), TRANS-THORACIC Echocardiology Routine Malignant neoplasm of overlapping sites of left breast in female, estrogen receptor negative (HCC) 06/14/2024 2:43 PM EST Scheduled Orders Name Type Priority Associated Diagnoses Orde r Schedule ECHO, COMPLETE (2D), TRANS-THORACIC Echocardiology Routine Malignant neoplasm of overlapping sites of left breast in female, estrogen receptor negative (HCC) Expected: 06/14/2024, Expires: 12/12/2024 Scheduled Procedures Name Priority Associated Diagnoses Date/Ti [...] Primary documented in this encounter Care Teams Electrical Maintenance Man Relationship Specialty Start Date End Date Jewell Leyva PA-C [address] [place] [address] PCP - General Physician Braille Proofreader 05/10/24 documented as of this encounter
--- OUTSIDE RECORDS SUMMARY | 2024-10-09 06:40 | External Medical Summary | Summary of Care ---
Author Name Unknown Organization [facility] Address [address] [facility] [place] [address] Phone [phone] Care Team Providers Care Process Eng Name Role Phone Jewell Leyva EUGENIA Primary Care Provider [phone] Encounter Details Date Type Department Care Team (Late st Contact Info) Description 06/14/2024 Orders Only [facility]ology[facility] [place] [facility] [phone] Celia Beard MD 400 [facility] [place] [phone] Allergies Active Allergy Reactions [...] 1 08/14/2023 Food insecurity 05/31/2024 Overview: Per [facility] Protocol ASCUS with positive high [...] Description 06/15/2024 9:45 AM EST Imaging Radiology [address] [facility] [place] [address] 06/15/2024 2:00 PM EST Pt Ed by Nurse Hematology/Oncology [facility] [address] [place] [phone] Nurse Rayna Hem Onc [facility] [address] [place] [address] 06/22/2024 8:00 AM EST Office Visit General Surgery, [facility] [address] [facility] [place] [address] Fawn Lindsay MD 132 [facility] [place] [address] 06/24/2024 11:30 AM EST Office Visit Hematology/Oncology [facility] [address] [place] [phone] Celia Beard MD [address] [place], [place] [address] [phone] 09/16/2024 8:00 AM EST Telemedicine Genetics HemOnc, [address] [address] Sofia Eldridge, [place] 132 [facility] [place] [address] Scheduled Procedures Name Priority Associated Diagnoses Date/Ti [...] filedocumented as of this encounter Care Teams Process Eng Relationship Specialty Start Date End Date Gordon October EUGENIA Mckinney [address] [place] [address] PCP - General Physician Coremaker Helper 05/10/24 documented as of this encounter
--- OUTSIDE RECORDS SUMMARY | 2024-10-09 06:40 | External Medical Summary | Summary of Care ---
Author Name Unknown Organization [facility] Address [address] [facility] [place] [address] Phone [phone] Care Team Providers Care [place] Name Role Phone eJwell Leyva EUGENIA Primary Care Provider [phone] Encounter Details Date Type Department Care Team (Late st Contact Info) Description 06/14/2024 Orders Only [facility]ology[facility] [place] [facility] [phone] Celia Beard MD 400 [facility] [place] [phone] Allergies Active [...] 1 08/14/2023 Food insecurity 05/31/2024 Overview: Per [facility] Protocol ASCUS with positive high [...] 2:30 PM EST Cardiac Studies Cardiac Studies, [facility] 132 [facility] [place] [address] 06/15/2024 9:45 AM EST Imaging Radiology [facility]st [facility] [address] [place] [address] 06/15/2024 2:00 PM EST Pt Ed by Nurse Hematology/Oncology [facility] 200 [facility] [place] [phone] Nurse Rayna Hem Onc [facility] 200 [place] [address] 06/22/2024 8:00 AM EST Office Visit General Surgery, [facility] [address] [facility] [place] [address] Fawn Lindsay MD 132 [facility] [place] [address] 06/24/2024 11:30 AM EST Office Visit Hematology/Oncology [facility] [address] [place] [address] Celia Beard MD [address] [place] [address] [place] [phone] 09/16/2024 8:00 AM EST Telemedicine Genetics HemOnc, [address] [address] Sofia [place], [place] 132 [place] [address] Scheduled Procedures Name Priority Associated Diagnoses Date/Ti [...] filedocumented as of this encounter Care Teams [place] Relationship Specialty Start Date End Date GordonOctober EUGENIA Mckinney [address] [place] [address] PCP - General Physician Dental Tech 05/10/24 documented as of this encounter
--- OUTSIDE RECORDS SUMMARY | 2024-10-09 06:40 | External Medical Summary ---
Author Name Unknown Address Unknown Organization K09:[facility] [place] [address] Laboratory Report Ordering Provider Test Date Status GENE RUIZ 06/14/2024 12:50:51 Final Warfarin Therapy
INR: 2 .0-3.0 conventional anticoagulation
INR: 2.5- 3.5 high intensity anticoagulation Observation Date Value Abnormality Reference (Units ) Status PT 06/14/2024 12:50:51 13.4 11.6-15.2 (seconds) Final INR 06/14/2024 12:50:51 1.0 0.8-1.2 Final Performing Location [facility] [place] [address]
--- OUTSIDE RECORDS SUMMARY | 2024-10-09 06:40 | External Medical Summary | Summary of Care ---
Author Name Unknown Organization [facility] Address [address] [place] [address] Phone [phone] Care Team Providers Care Dextrine Mixer Name Role Phone Gordon Jewell Faye EUGENIA Primary Care Provider [phone] Reason for Visit * Reason Comments Outpatient Testing Encounter Details Date Type Department Care Team (Late st Contact Info) Description 06/14/2024 12:50 PM EST Laboratory Laboratory [facility] [address] [place] [phone] [facility] [address] [place] [address] Malignant neoplasm of overlapping sites of left [...] chemotherapy 2023 Food insecurity 05/31/2024 Overview: Per [facility] Protocol ASCUS with positive high [...] 2:30 PM EST Cardiac Studies Cardiac Studies, [facility] 132 [facility] [address] 06/15/2024 9:45 AM EST Imaging [facility] [address] [facility] [place] [address] 06/22/2024 8:00 AM EST Office Visit General Surgery, [facility] 132 [facility] [place] [address] Fawn Lindsay MD 132 [place] [address] 06/24/2024 11:30 AM EST Office Visit Hematology/Oncology [facility] 200 [place] [phone] Celia Beard MD [address] [place] [phone] 09/16/2024 8:00 AM EST Telemedicine Genetics HemOn, [address] [address] Sofia [place]ridge, [place] [facility] [place] [address] Pending Results Name Type Priority Associated Diagnoses Date /Time COMPREHENSIVE METABOLIC PANEL Lab STAT Malignant neoplasm of overlapping sites of left breast in female, estrogen receptor negative (HCC) 06/14/2024 12:50 PM EST PT INR Lab Routine Malignant neoplasm of overlapping sites of left breast in female, estrogen receptor negative (HCC) 06/14/2024 12:50 PM EST CEA Lab Routine Malignant neoplasm of overlapping sites of left breast in female, estrogen receptor negative (HCC) 06/14/2024 12:50 PM EST CA 27.29 Lab Routine Malignant neoplasm of overlapping sites of left breast in female, estrogen receptor negative (HCC) 06/14/2024 12:50 PM EST LD Lab Routine Malignant neoplasm of overlapping sites of left breast in female, estrogen receptor negative (HCC) 06/14/2024 12:50 PM EST HEPATITIS C ANTIBODY SCREEN WITH PROGRESSION TO HEPATITIS C RNA QUANTITATIVE Lab Routine Malignant neoplasm of overlapping sites of left breast in female, estrogen receptor negative (HCC) 06/14/2024 12:50 PM EST HEPATITIS B SURFACE ANTIBODY Lab Routine Malignant neoplasm of overlapping sites of left breast in female, estrogen receptor negative (HCC) 06/14/2024 12:50 PM EST HEPATITIS B SURFACE ANTIGEN Lab Routine Malignant neoplasm of overlapping sites of left breast in female, estrogen receptor negative (HCC) 06/14/2024 12:50 PM EST HEPATITIS B CORE ANTIBODIES IGG AND IGM Lab Routine Malignant neoplasm of overlapping sites of left breast in female, estrogen receptor negative (HCC) 06/14/2024 12:50 PM EST HEPATITIS C ANTIBODY Lab Routine Malignant neoplasm of overlapping sites of left breast in female, estrogen receptor negative (HCC) 06/14/2024 12:50 PM EST HEPATITIS C RNA ADD ON Lab Routine Malignant neoplasm of overlapping sites of left breast in female, estrogen receptor negative (HCC) 06/14/2024 12:50 PM EST Scheduled Procedures Name Priority Associated [...] Lipid Panel 08/26/2024 08/26/2019 Mammogram 03/18/2025 03/18/2024, 08/03/2024, 01/16/2024, Additional history exists Depression Monitoring 05/17/2025 [...] Not on filedocumented as of this encounter Procedures Procedure Name Priority Date/Time Associated Diagnosis Comments DIFFERENTIAL, AUTOMATED Routine 06/14/2024 12:50 PM EST Malignant neoplasm of overlapping sites of left breast in female, estrogen receptor negative (HCC) CBC Routine 06/14/2024 12:50 PM EST Malignant neoplasm of overlapping sites of left breast in female, estrogen receptor negative (HCC) CBC Routine 06/14/2024 12:50 PM EST Malignant neoplasm of overlapping sites of left breast in female, estrogen receptor negative (HCC) documented in this encounter Results * DIFFERENTIAL, AUTOMATED (06/14/2024 12:50 PM EST) WBC 9.75 4.00 - 10.80 K/uL 06/14/2024 1:00 PM EST [facility] [place] 56-02 Neutrophils % 73.1 40.0 - 75.0 % 06/14/2024 1:00 PM EST [facility] [place] 56-02 Lymphocytes % 19.3 18.0 - 42.0 % 06/14/2024 1:00 PM EST [facility] 56- Monocytes % 5.5 1.0 - 11.0 % 06/14/2024 1:00 PM EST [facility] 56- Eosinophils % 1.8 0.0 - 6.0 % 06/14/2024 1:00 PM EST [facility] 56- Basophils % 0.3 0.0 - 2.0 % 06/14/2024 1:00 PM [facility] 56- Absolute Neutrophils 7.12 1.80 - 7.70 K/uL 06/14/2024 1:00 PM [facility] 56- Absolute Lymphocytes 1.88 1.00 - 4.80 K/ul 06/14/2024 1:00 PM [facility] 56- Absolute Monocytes 0.54 0.00 - 1.10 K/uL 06/14/2024 1:00 PM [facility] 56- Absolute Eosinophils 0.18 0.00 - 0.70 K/uL 06/14/2024 1:00 PM [facility] 56- Absolute Basophils 0.03 0.00 - 0.20 K/uL 06/14/2024 1:00 PM [facility] 56- Blood Venous blood specimen / Unknown Venipuncture / Unknown 06/14/2024 12:50 PM EST 06/14/2024 12:50 PM EST Celia Beard MD LAB BLOOD OR DERABLES Final Result [facility] 56- [address] [place] [address] * CBC (06/14/2024 12:50 PM EST) [facility] WBC 9.75 4.00 - 10.80 K/uL 06/14/2024 1:00 PM EST [facility] 56- RBC 4.66 3.85 - 5.15 M/uL 06/14/2024 1:00 PM [facility] 56- HGB 14.3 12.0 - 15.3 g/dL 06/14/2024 1:00 PM [facility] 56- HCT 42.9 36.0 - 45.2 % 06/14/2024 1:00 PM [facility] 56 MCV 92.1 81.5 - 97.5 fL 06/14/2024 1:00 PM [facility] 56- MCH 30.7 27.0 - 34.0 pg 06/14/2024 1:00 PM [facility] 56 MCHC 33.3 32.0 - 36.0 g/dL 06/14/2024 1:00 PM [facility] 56 RDW 12.9 11.5 - 15.5 % 06/14/2024 1:00 PM [facility] 56- PLT 248 140 - 400 K/uL 06/14/2024 1:00 PM [facility] 56- MPV 10.6 6.6 - 11.1 fL 06/14/2024 1:00 PM [facility] 56 Blood Venous blood specimen / Unknown Venipuncture / Unknown 06/14/2024 12:50 PM EST 06/14/2024 12:50 PM EST us Celia Beard MD LAB BLOOD OR DERABLES Final Result [facility] 56 200 [facility] [address] documented in this encounter Visit Diagnoses Diagnosis Malignant neoplasm of overlapping sites of left breast in female, estrogen receptor negative (HCC) documented in this encounter Care Teams Dextrine Mixer Relationship Specialty Start Date End Date Gordon Jewell EUGENIA Mckinney 200 [facility] [address] PCP - General Physician Health Advocate 05/10/24 documented as of this encounter
--- OUTSIDE RECORDS SUMMARY | 2024-10-09 06:40 | External Medical Summary ---
Author Name Unknown Address Unknown Organization K01:[facility] - [address] [place] [address] Laboratory Report Ordering Provider Test Date Status GENE RUIZ 06/14/2024 12:50:51 Final Observation Date Value Abnormality Reference (Units ) Status Hep B surface Ag 06/14/2024 12:50:51 Negative Neg ative Final Performing Location [facility] - [address] [place] [address]
--- OUTSIDE RECORDS SUMMARY | 2024-10-09 06:40 | External Medical Summary | Summary of Care ---
Author Name Unknown Organization [facility] Address [address] [facility] [address] Phone [phone] Care Team Providers Care Osteopathic Resident Name Role Phone Jewell Leyva EUGENIA Primary Care Provider [phone] Encounter Details Date Type Department Care Team (Late st Contact Info) Description 06/14/2024 Orders Only Hematology/Oncology [facility] [place] 200 [facility] [phone] Celia Beard MD 400 [facility] [place] [phone] Allergies Active Allergy [...] 1 08/14/2023 Food insecurity 05/31/2024 Overview: Per [facility] Protocol ASCUS with positive high [...] 2:30 PM EST Cardiac Studies Cardiac Studies, [facility] 132 [facility] [place] [address] 06/15/2024 9:45 AM EST Imaging Radiology [facility]st [facility] [address] [place] [address] 06/15/2024 2:00 PM EST Pt Ed by Nurse Hematology/Oncology [facility] 200 [facility] [place] [phone] Nurse Rayna Hem Onc [facility] 200 [facility] [place] [address] 06/22/2024 8:00 AM EST Office Visit General Surgery, [facility] 132 [facility] [place] [address] Fawn Lindsay MD 132 [facility] [place] [address] 06/24/2024 11:30 AM EST Office Visit Hematology/Oncology [facility] [address] [place] [phone] Celia Beard MD [address] [place] [address] [place] [phone] 09/16/2024 8:00 AM EST Telemedicine Genetics HemOnc, [address] [address] Sofia [place]ridge, [place] 132 [place] [address] Scheduled Procedures Name Priority Associated Diagnoses Date/Ti [...] filedocumented as of this encounter Care Teams Osteopathic Resident Relationship Specialty Start Date End Date GordonOctober EUGENIA Mckinney [address] [place] [address] PCP - General Physician Director Of Child Welfare Services 05/10/24 documented as of this encounter
--- OUTSIDE RECORDS SUMMARY | 2024-10-09 06:40 | External Medical Summary ---
Author Name Unknown Address Unknown Organization K01:[facility] - [address] [place] [address] Laboratory Report Ordering Provider Test Date Status GENE RUIZ 06/14/2024 12:50:51 Final Observation Date Value Abnormality Reference (Units ) Status Hep C Ab 06/14/2024 12:50:51 Negative Negative Final Further HCV quantitative kelsey ting not performed per protocol. Performing Location [facility] - [address] [place] [address]
--- OUTSIDE RECORDS SUMMARY | 2024-10-09 06:40 | External Medical Summary ---
Author Name Unknown Address Unknown Organization K09:[facility] [place] [address] Laboratory Report Ordering Provider Test Date Status GENE RUIZ 06/14/2024 12:50:51 Final Observation Date Value Abnormality Reference (Units ) Status SYNC LEUKOCYTES IN BLOOD BY AUTOMATED COUNT 06/14/2024 12:50:51 9.75 4.00-10.80 (K/uL) Final Segs 06/14/2024 12:50:51 73.1 40.0-75.0 (%) Final Lymphs % 06/14/2024 12:50:51 19.3 18.0-42.0 (%) Final Monos 06/14/2024 12:50:51 5.5 1.0-11.0 (%) Final Eosinophils 06/14/2024 12:50:51 1.8 0.0-6.0 (%) Final Basos 06/14/2024 12:50:51 0.3 0.0-2.0 (%) Final Absolute Segs 06/14/2024 12:50:51 7.12 1.80-7.70 (K/uL) Final Lymphs, absolute 06/14/2024 12:50:51 1.88 1.00-4.80 (K/ul) Final Monos, Abs 06/14/2024 12:50:51 0.54 0.00-1.10 (K/uL) Final Eos, Abs 06/14/2024 12:50:51 0.18 0.00-0.70 (K/uL) Final Basos, Abs 06/14/2024 12:50:51 0.03 0.00-0.20 (K/uL) Final Performing Location [facility] [place] [address]
--- OUTSIDE RECORDS SUMMARY | 2024-10-09 06:40 | External Medical Summary ---
Author Name Unknown Address Unknown Organization : Laboratory Report Ordering Provider Test Date Status GENE RUIZ 06/14/2024 12:50:51 Final Observation Date Value Abnormality Reference (Units ) Status Cancer Ag 27-29 06/14/2024 12:50:51 122 Above high nor mal <38 (U/mL) Final The CA 27.29 result may be i ncreased on average
5-10%, relative to results previously obtained
with this method due to a recent calibrator
adjustment made in April 2024 by the reagent
fur joiner. In the low range for this assay
(<38 U/mL), this increase may be greater than
20%. Serially monitored results should always
be used in conjunction with other diagnostic
procedures, including clinical evaluation.
This test was performed using the Siemens chemilumi-
nescent method. Values obtained from different assay
methods cannot be used interchangeably. CA27.29
levels, regardless of value, should not be interpreted
as absolute evidence of the presence or absence of
disease.

Test Performed at:
[facility]
[address] [facility]
[place] [address]
Khoi Dover M.D., Ph.D.,Director of Laboratories Performing Location
--- OUTSIDE RECORDS SUMMARY | 2024-10-09 06:40 | External Medical Summary ---
Author Name Unknown Address Unknown Organization K09:[facility] [place] [address] Laboratory Report Ordering Provider Test Date Status GENE RUIZ 06/14/2024 12:50:51 Final Observation Date Value Abnormality Reference (Units ) Status WBC, Total 06/14/2024 12:50:51 9.75 4.00-10.8 0 (K/uL) Final RBC 06/14/2024 12:50:51 4.66 3.85-5.15 (M/uL) Final Hemoglobin 06/14/2024 12:50:51 14.3 12.0-15.3 (g/dL) Final HCT 06/14/2024 12:50:51 42.9 36.0-45.2 (%) Final MCV 06/14/2024 12:50:51 92.1 81.5-97.5 (fL) Final MCH 06/14/2024 12:50:51 30.7 27.0-34.0 (pg) Final MCHC 06/14/2024 12:50:51 33.3 32.0-36.0 (g/dL) Final RDW 06/14/2024 12:50:51 12.9 11.5-15.5 (%) Final Platelets 06/14/2024 12:50:51 248 140-400 (K /uL) Final MPV 06/14/2024 12:50:51 10.6 6.6-11.1 ( fL) Final Performing Location [facility] [place] [address]
--- OUTSIDE RECORDS SUMMARY | 2024-10-09 06:41 | External Medical Summary | Summary of Care ---
Author Name Unknown Organization [facility] Address [address] [place] [address] Phone [phone] Care Team Providers Care Powerhouse Laborer Name Role Phone Jewell Leyva PA-C Primary Care Provider [phone] Reason for Referral * Evaluate & Treat - Unlimited Visits (Within 30 days (routine)) - Pending Review Specialty Diagnoses / Procedures Referred By Jacobo lo Referred To Contact General Surgery Diagnoses Cyst of left breast Jewell Leyva PA-C [address] [place] [address] Fawn Lindsay MD [address] [place] [address] Referral ID Status Reason Start Date Expiration Date Visits Requested Visits Authorized [id number] Pending Review Specialty Services Required [phone] Question Answer Referral Priority Within 30 days (routine) Where should this appointment be scheduled? [facility] What condition is the patient being seen for? General Surgery Conditions What condition is the patient being seen for? All other conditions Reason for Visit * Reason Comments Physical-Exam Encounter Details Date Type Department Care Team (Latest Contact Info) Description 05/17/2024 2:20 PM EDT Office Visit [facility] [address] [place] [address] Jewell Leyva PA-C [address] [place] [address] Well adult exam*; Major depressive disorder, single episode, moderate (HCC); Cyst of left breast; Screening for cardiovascular condition; Weight gain; Arthralgia, unspecified joint Allergies Active Allergy Reactions Criticality Noted Date Comments Vancomycin Low 03/16/2022 documented as of this encounter (statuses as of 05/17/2024) Medications Medication Sig Dispensed Refills Start Date End Date Status MULTIVITAMINS PO TABS one a day Active ALPRAZolam 0.25 MG Oral Tablet (xaNAX) Take by mouth 1 Tablet in the morning AND 1 Tablet at noon AND 1 Tablet before bedtime. As needed for anxiety. 30 Tablet 1 11/13/2021 Active Nitroglycerin 0.2% rectal ointment Administer into the rectum 2 times a day. 20 g 3 11/06/2023 Active PARoxetine HCl 40 MG Oral Tablet (pAXil) Take 1 Tablet by mouth in the morning. 90 Tablet 1 12/03/2023 Active documented as of this encounter (statuses as of 05/17/2024) Active Problems Problem Noted Date Diagnosed Date ASCUS with positive high risk HPV cervical 06/04 Major depressive disorder, r ecurrent severe without psychotic features 04/10/2023 Major depressive disorder, single episode, moder ate 06/07/2021 Encounter for other general counseling or advice on contraception 04/27/2010 Overview: ICD-10 update of inactive term documented as of this encounter (statuses as of 05/17/2024) Resolved Problems Problem Noted Date Diagnosed Date Resolved Date Current mild episode of chente r depressive disorder without prior episode 08/19/2018 4 ABN PAP SMEAR-CERVIX 999 Encounter for supervision of other normal 05/28/2016 Overview: ICD-10 update of inactive term documented as of this encounter (statuses as of 05/17/2024) Immunizations Name Administration Dates Next Due TD [...] Answer Date Recorded PHQ Adult Total Score 8 08/06/2021 Utilities Answer Date Recorded Do you have trouble paying y our heating, water, or electric bill? (Adult - for ages 18 years and over) Not on file 01/06/2024 Is your family able to pay t he heat, water, or electric bill? (Household - for ages 0-17 years) Not on file 01/06/2024 Does your family have access to good internet? (Household - for ages 0-17 years) Not on file 01/06/2024 Social Connections Answer Date Recorded How often do you feel lonely or isolated from those around you? (Adult - for ages 18 years and over) Not on file 01/06/2024 Sex and Gender Information Value Date Recorded Sex Assigned at Female 05/17/2024 2:18 PM EDT Gender Identity Not on file Sexual Orientation Straight 03/12/2023 2: 26 PM EDT Job Start Date Occupation Industry Not on file Not on file Not on file documented as of this encounter Last Filed Vital Signs Vital Sign Reading Time Taken Comments Blood Pressure 110/72 05/17/2024 2:13 PM EDT Pulse 74 05/17/2024 2:13 PM EDT Temperature 36.6 C (97.8 F) 05/17/2024 2:13 PM ED T Respiratory Rate 16 05/17/2024 2:13 PM EDT Oxygen Saturation 96% 05/17/2024 2:13 PM EDT Inhaled Oxygen Concentration - - Weight 94.4 kg (208 lb 1.3 oz) 05/17/2024 2:13 P M EDT Height 165.1 cm (5' 5") 05/17/2024 2:13 PM EDT Body Mass Index 34.63 05/17/2024 2:13 PM EDT documented in this encounter Progress Notes * Jewell Leyva PA-C - 05/17/2024 2:22 PM EDT Images from the original note were not included. History of Present Illness Radha Fung is a 48 year old female that presents for Physical-Exam Feeling well. Continues to gain weight. Enlarging cyst in left breast. Cyst is painful. Has gotten bigger over the last several months. Appetite good Sleep good Urination/ bowel movements good No menses has IUD> Physical Exam Vitals: 05/17/24 1413 Temp: 36.6 C (97.8 F) Pulse: 74 Resp: 16 SpO2: 96% BP: 110/72 BMI: 34.63 BP Readings from Last 3 Encounters: 05/17/24 110/72 01/15/24 144/80 06/04/23 122/68 Wt Readings from Last 3 Encounters: 05/17/24 94.4 kg (208 lb 1.3 oz) 01/15/24 92.1 kg (203 lb) 06/04/23 90.7 kg (200 lb) General: alert, healthy, no distress, well nourished, well developed, comfortable, and cooperative Head: Normocephalic, No masses, lesions, tenderness or abnormalities Eye Exam: PERRLA, extraocular movements intact, conjunctiva are pink and non- injected, sclera clear Ears: External ears normal, Canals clear, TM's Normal Oropharynx: no exudate, no erythema, lips, buccal mucosa, and tongue normal, and mucous membranes are moist Neck: supple, no adenopathy, no bruits, thyroid normal size, non-tender, without nodularity Heart: regular rate & rhythm, no murmur, and no gallops Lungs: chest symmetric with normal AP diameter, no chest deformities noted, normal respiratory rateand rhythm, no chest wall tenderness, diaphragmatic excursion normal, lungs clear to auscultation Abdomen: abdomen soft, non-tender, normal bowel sounds, no masses or organomegaly, no rebound or guarding, no CVA tenderness, and no bladder distention identified Back: back symmetric, no curvature, no costovertebral angle tenderness, range of motion is normal, no skin lesions, erythema or scars, no tenderness to percussion or palpation Extremities: less than 2 second capillary refill, no joint deformities, effusion, or inflammation, no edema, no skin discoloration, no clubbing, no cyanosis Breasts: Inspection negative, No nipple retraction or dimpling, No nipple discharge or bleeding, Noaxillary or supraclavicular adenopathy, large cystic lesion in left upper inner quadrant Skin: skin color, texture, turgor are normal, no rashes or significant lesions I have reviewed the following results: None Assessment and Plan Well adult exam (Primary) Major depressive disorder, single episode, moderate (HCC) Cyst of left breast - SURGERY REFERRAL OP Screening for cardiovascular condition - LIPID PANEL WITH DIRECT LDL IF TG IS HIGH; Future; Expected date: 05/17/2024 Weight gain - TSH WITH FREE T4 IF INDICATED; Future; Expected date: 05/17/2024 - BASIC METABOLIC PANEL; Future; Expected date: 05/17/2024 Arthralgia, unspecified joint - LYME DISEASE ANTIBODY SCREEN WITH REFLEX TO CONFIRMATION; Future; Expected date: 05/17/2024 Check-out note: Schedule with surgery Wrap-Up Time: I spent a total of 30-39 minutes (exact time 35 mins) on the date of service in preparation, delivery, and documentation of the care provided to Radha Fung excluding any time spent in the performance of separately billed services. documented in this encounter Nursing Notes * Trinidad Perdomo LPN - 05/17/2024 2:12 PM EDT CPE No concerns documented in this encounter Plan of Treatment Scheduled Orders Name Type Priority Associated Diagnoses Orde r Schedule LIPID PANEL WITH DIRECT LDL IF TG IS HIGH Lab Routine Screening for cardiovascular condition Expected: 05/17/2024, Expires: 05/17/2025 TSH WITH FREE T4 IF INDICATED Lab Routine Weight gain Expected: 05/17/2024 (Approximate), Expires: 05/17/2025 BASIC METABOLIC PANEL Lab Routine Weight gain Expected: 05/17/2024 (Approximate), Expires: 05/17/2025 LYME DISEASE ANTIBODY SCREEN WITH REFLEX TO CONFIRMATION Lab Routine Arthralgia, unspecified joint Expected: 05/17/2024 (Approximate), Expires: 05/17/2025 Scheduled Procedures Name Priority Associated Diagnoses Date/Ti me COLONOSCOPY FLEXIBLE PROXIMAL DIAGNOSTIC Recall Screen for colon cancer Scheduled Referrals Name Type Priority Associated Diagnoses Orde r Schedule SURGERY REFERRAL OP Referral Within 30 da ys (routine) Cyst of left breast Ordered: 05/17/2024 Health Maintenance Due Date Last Done Comments Hepatitis B Vaccine (1 of 3 - 19+ 3-dose series) 1993 Cologuard 11/06/2019 Fecal Occult Blood Test 11/06/2019 Sigmoidoscopy 11/06/2019 COVID-19 Vaccine ( season) 2024 Influenza Vaccine (FLU shot) (#1) 2024 Lipid Panel 08/26/2024 08/26/2019 Mammogram 03/18/2025 03/18/2024, 12/20, 03/25/2023, Additional history exists Depression Monitoring 05/17/2025 05/17/2024 [...] as of this encounter Visit Diagnoses Diagnosis Well adult exam- Primary Routine general medical examination at a health care facility Major depressive disorder, single episode, moderate (HCC) Major depressive disorder, single episode, moderate Cyst of left breast Screening for cardiovascular condition Screening for other and unspecified cardiovascular conditions Weight gain Abnormal weight gain Arthralgia, unspecified joint documented in this encounter Care Teams Powerhouse Laborer Relationship Specialty Start Date End Date Gordon Jewell Faye, EUGENIA [address] [place] [address] PCP - General Physician Water Main Inspector 05/10/24 documented as of this encounter
--- OUTSIDE RECORDS SUMMARY | 2024-10-09 06:41 | External Medical Summary | Summary of Care ---
Author Name Unknown Organization [facility] Address [address] [place] [address] Phone [phone] Care Team Providers Care Silk Brusher Name Role Phone Jewell Leyva PA-C Primary Care Provider [phone] Reason for Visit * Reason Comments NEW PATIENT Left breast cyst. It 's getting bigger. * Evaluate & Treat - Unlimited Visits (Within 30 days (routine)) - Authorized Specialty Diagnoses / Procedures Referred By Jacobo lo Referred To Contact General Surgery Diagnoses Cyst of left breast Gordon October Faye, EUGENIA [address] [place] [address] Phone: tel: fax: Fawn Lindsay MD [address] [facility] [place] [address] Phone: tel: fax: Referral ID Status Reason Start Date Expiration Date Visits Requested Visits Authorized [id number] Authorized Specialty Services Required [phone] Encounter Details Date Type Department Care Team (Late st Contact Info) Description 05/27/2024 11:30 AM EST Office Visit [facility] [address] [facility] [place] [address] Fawn Lindsay MD [address] [facility] [place] [address] Breast cyst, left* Allergies Active Allergy Reactions Criticality Noted Date Comments Vancomycin Low 03/16/2022 documented as of this encounter (statuses as of 05/28/2024) Medications MULTIVITAMINS PO TABS one a day [...] the morning. 90 Tablet 1 4 Active Hospital, Clinic, or Other Facility Administered Medication Ordered Dose Route Frequency Start Date End Date Status Lidocaine-EPINEPHrine 1 %-1:693799 inj 10 mgIndications:Breast cyst, left 10 mg SC ONCE 05/27/2024 05/27/2024 Ended documented as of this encounter (statuses as of 05/28/2024) Active Problems Problem Noted Date Diagnosed Date ASCUS with positive high risk HPV cervical 06/04 Major depressive disorder, r ecurrent severe without psychotic features 04/10/2023 Major depressive disorder, single episode, moder ate 06/07/2021 Encounter for other general counseling or advice on contraception 04/27/2010 Overview (04/20/2024): ICD-10 update of inactive term documented as of this encounter (statuses as of 05/28/2024) Resolved Problems Problem Noted Date Diagnosed Date Resolved Date Current mild episode of chente r depressive disorder without prior episode 08/19/2018 4 ABN PAP SMEAR-CERVIX 999 Encounter for supervision of other normal 05/28/2016 Overview (11/21/2015): ICD-10 update of inactive term documented as of this encounter (statuses as of 05/28/2024) Immunizations Name Administration Dates Next Due TD [...] Sign Reading Time Taken Comments Blood Pressure 143/71 05/27/2024 11:25 AM EST Pulse 76 05/27/2024 11:25 AM EST Temperature - - Respiratory Rate - - Oxygen Saturation - - Inhaled Oxygen Concentration - - Weight 94.8 kg (209 lb) 05/27/2024 11:25 AM EST Height - - Body Mass Index 34.78 05/17/2024 2:13 PM EDT documented in this encounter Progress Notes * Fawn Lindsay MD - 05/27/2024 11:44 AM EST [facility] GENERAL SURGERY NEW BREAST EXAM CLINIC NOTES Chief Complaint Patient presents with NEW PATIENT Left breast cyst. It's getting bigger. REASON FOR CONSULTATION: Left breast cyst HPI: Radha Fung is a 48 year old female who is seen at the request of Jewell Leyva PA-C for evaluation of a left breast cyst first noticed in December on self exam. Not painful or tender at the time. Ever since then, felt as though it was slowly growing. Now feels large. Painful - even at rest, radiates to upper and lower breast. Tender to touch. Hugs/ work with restraining animals hurts. No previous bresat biopsy. Paternal grandmother with ovarian cancer - . BREAST ROS: No nipple discharge and No [...] year(s) Ever take estrogen? No RADIOLOGIC INTERPRETATION: 03/18/24: Result MAMMOGRAM DIAGNOSTIC KEN LEFT US [...] Daughter Breast Cancer No significant family history PAST MEDICAL HISTORY: Past Medical History: Diagnosis Date Abnormal Papanicolaou smear of cervix and cervical HPV Other anxiety states Varicella without complication PAST SURGICAL HISTORY: Past Surgical History: Procedure Laterality Date COLONOSCOPY, DIAGNOSTIC (RECTUM) 04/11/2023 hemorrhoids/recall 10 years/COLONOSCOPY FLEXIBLE PROXIMAL DIAGNOSTIC performed by Rajendra Leon MD at ENDOSCOPY [facility] COLPOSCPY CERVIX W/BX AND EC 1997,1998 VAGINAL DELIVERY ONLY times 3 CURRENT OUTPATIENT PRESCRIPTIONS: Current Outpatient Medications Medication Sig Dispense Refill MULTIVITAMINS PO TABS one a day PARoxetine HCl 40 MG Oral Tablet (pAXil) Take 1 Tablet by mouth in the morning. 90 Tablet 1 ALPRAZolam 0.25 MG Oral Tablet (xaNAX) Take [...] rashes, no itching PHYSICAL EXAMINATION Blood pressure 143/71, pulse 76, weight 94.8 kg (209 lb). Constitutional: alert, healthy Head: normocephalic, atraumatic Eyes: conjunctiva non-injected, sclera white Ears: pinna normal shape and color Neck: supple, no adenopathy Abdomen: soft, non-tender Back: normal curvature Extremities: no edema Neuro: alert, gait normal, motor normal Filter Tender Jelly Documentation Patient offered industrial automation engineer and declined. BREAST EXAMINATION: Right Breast: Right Breast: Masses noted: No Post XRT edema: No Post XRT erythema: No Other palpable abnormality: No Skin: Skin retraction: No Peau d'orange: No Telangectasia: No Scar(s) present: No Other changes: No Right Nipple: Nipple inversion: No Pagets: No Nipple discharge: No Right Lymph Nodes: Arm edema: No Palpable axillary adenopathy: No Palpable supraclavicular adenopathy: No Previous axillary incision: No Left Breast: Left Breast: Masses noted: Yes, large near 4 cm visible and palpable cyst in her left upper breast 11:00 12 cm FN. Post XRT edema: No Post XRT erythema: No Other palpable abnormality: No Skin: Skin retraction: No Peau d'orange: No Telangectasia: No Scar(s) present: No Other changes: No Left Nipple: Nipple inversion: No Pagets: No Nipple discharge: No Left Lymph Nodes: Arm edema: No Palpable axillary adenopathy: No Palpable supraclavicular adenopathy: No Previous axillary incision: No ASSESSMENT: 48-year-old woman with a large left breast cyst that is symptomatic and increasing. We discussed the differential diagnosis with the possibility of other findings such as idiopathic granulomatous mastitis or cancer. We discussed drainage of the cyst which could be done in the office today or under radiologic guidance. We reviewed that the advantage of radiologic guidance is that they can watch and make sure that the cyst aspirated completely. We discussed the possibility of cyst filling with fluid again. We reviewed the possibility of a core biopsy if needed. She prefers to have it aspirated today. I have provided a significant and separately identifiable visit with today's procedure because there were multiple complex differential diagnoses for this patient, including idiopathic granulomatous mastitis, abscess, malignancy, cyst . PLAN: In conclusion, our recommendation for this patient is left breast cyst aspiration. Fawn Lindsay M.D. 05/27/2024 12:50 PM Operative note: Indications:Left breast mass at 11:00 12 cm FN Procedure: left breast cyst aspiration Anesthesia: local (10 cc 1% lidocaine with epi) Specimens:left breast cyst aspiration Surgeon: Fawn Lindsay Complications: none Procedure: The left breast mass was prepped with betadine and draped. The area of the mass was anesthetized with 1% lidocaine with epinephrine. A 18 gauge needle was used to aspirate - 30 cc of greenfluid was obtained and discarded. The last 6 cc of fluid were bloody and this was sent for cytology. The cyst resolved on exam. Pressure was held until hemostasis was obtained. A sterile dressing wasapplied. The patient tolerated the procedure well and was discharged home in stable condition. documented in this encounter Nursing Notes * Najma Coles MED ASSIST - 05/27/2024 11:26 AM EST Chief Complaint Patient presents with NEW PATIENT Left breast cyst. It's getting bigger. Patient presents today for evaluation of left breast cyst. Patient [facility] on 01/16/2024; 03/18/2024. BREAST HISTORY: Mass: No Breast Pain: no Nipple discharge: No Previous problems/surgeries: None Breast Cancer: no Other Cancers: no GYNECOLOGIC HISTORY: LMP: No LMP recorded. Patient has had an implant. Menarche at age: 12 Menopause at age: not sure. Number of children: 3 Patient's age at first live : 22 Did you breast feed any of your children: a little while. Ever take oral contraceptives? Yes, history of use for 3-4 year(s) Ever take estrogen? No Family History of Breast Cancer: No documented in this encounter Plan of Treatment Pending Results Name Type Priority Associated Diagnoses Date /Time CYTOLOGY Pathology Routine Breast cyst, left 05/27/2024 12:28 PM EST Scheduled Orders Name Type Priority Associated Diagnoses Orde r Schedule CYTOLOGY Pathology Routine Breast cyst, left Expected: 05/27/2024, Expires: 06/26/2025 Scheduled Procedures Name Priority Associated Diagnoses Date/Ti [...] as of this encounter Visit Diagnoses Diagnosis Breast cyst, left- Primary documented in this encounter Administered Medications Inactive Administered Medications - up to 3 most recent administrations Medication Order MAR Action Action Date Dose Rate Site Lidocaine-EPINEPHrine 1 %-1:496687 inj 10 mg 10 mg, Subcutaneous, ONCE, On Yudi 05/27/24 at 1300, For 1 doseIndications:Breast cyst, left Given 05/27/2024 1:24 PM EST 10 mg Breas t Left documented in this encounter Care Teams Silk Brusher Relationship Specialty Start Date End Date Jewell Leyva PA-C [address] [place] [address] PCP - General Physician Canine Service Teacher 05/10/24 documented as of this encounter
--- OUTSIDE RECORDS SUMMARY | 2024-10-09 06:41 | External Medical Summary | Summary of Care ---
Author Name Unknown Organization [facility] Address [address] [place] [address] Phone [phone] Care Team Providers Care Stone Hand Name Role Phone Jewell Leyva PA-C Primary Care Provider Reason for Visit * Reason Comments NEW PATIENT Left breast cyst. It 's getting bigger. * Evaluate & Treat - Unlimited Visits (Within 30 days (routine)) - Pending Review Specialty Diagnoses / Procedures Referred By Jacobo lo Referred To Contact General Surgery Diagnoses Cyst of left breast Gordon October Faye, EUGENIA [address] [place] [address] Fawn Lindsay MD [address] [place] [address] Referral ID Status Reason Start Date Expiration Date Visits Requested Visits Authorized [id number] Pending Review Specialty Services Required [phone] Encounter Details Date Type Department Care Team (Late st Contact Info) Description 05/27/2024 11:30 AM EST Office Visit General Surgery, [facility] [address] [place] [address] Fawn Lindsay MD [address] [facility] [place] [address] Breast cyst, left* Allergies Active Allergy Reactions Criticality Noted Date Comments Vancomycin Low 03/16/2022 documented as of this encounter (statuses as of 05/27/2024) Medications Medication Sig Dispensed Refills Start Date End Date Status MULTIVITAMINS PO TABS one a day Active ALPRAZolam 0.25 MG Oral Tablet (xaNAX) Take by mouth 1 Tablet in the morning AND 1 Tablet at noon AND 1 Tablet before bedtime. As needed for anxiety. 30 Tablet 1 11/13/2021 Active Additional Information Patient not taking.Reported on 05/27/2024 Nitroglycerin 0.2% rectal ointment Administer into the rectum 2 times a day. 20 g 3 11/06/2023 Active Additional Information Patient not taking.Reported on 05/27/2024 PARoxetine HCl 40 MG Oral Tablet (pAXil) Take 1 Tablet by mouth in the morning. 90 Tablet 1 12/03/2023 Active Hospital, Clinic, or Other Facility Administered Medication Ordered Dose Route Frequency Start Date End Date Status Lidocaine-EPINEPHrine 1 %-1:923599 inj 10 mgIndications:Breast cyst, left 10 mg SC ONCE 05/27/2024 05/27/2024 Ended documented as of this encounter (statuses as of 05/27/2024) Active Problems Problem Noted Date Diagnosed Date ASCUS with positive high risk HPV cervical 06/04 Major depressive disorder, r ecurrent severe without psychotic features 04/10/2023 Major depressive disorder, single episode, moder ate 06/07/2021 Encounter for other general counseling or advice on contraception 04/27/2010 Overview: ICD-10 update of inactive term documented as of this encounter (statuses as of 05/27/2024) Resolved Problems Problem Noted Date Diagnosed Date Resolved Date Current mild episode of chente r depressive disorder without prior episode 08/19/2018 4 ABN PAP SMEAR-CERVIX 999 Encounter for supervision of other normal 05/28/2016 Overview: ICD-10 update of inactive term documented as of this encounter (statuses as of 05/27/2024) Immunizations Name Administration Dates Next Due TD [...] ages 0-17 years) Not on file 05/17/2024 Sex and Gender Information Value Date Recorded [...] Lindsay MD - 05/27/2024 11:44 AM EST [facility] GENERAL SURGERY NEW BREAST EXAM CLINIC NOTES [...] performed by Rajendra Leon MD at ENDOSCOPY [facility] COLPOSCPY CERVIX W/BX AND EC 1997,1998 VAGINAL [...] edema Neuro: alert, gait normal, motor normal Senior Engineer Documentation 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 BREAST EXAMINATION: Right Breast: Right [...] breast cyst. Patient had mammogram done at [facility] on 01/16/2024; 03/18/2024. BREAST HISTORY: Mass: No [...] Lipid Panel 08/26/2024 08/26/2019 Mammogram 03/18/2025 03/18/2024, 06/2 02/2024, 03/25/2023, Additional history exists Depression Monitoring 05/17/2025 [...] Action Date Dose Rate Site Lidocaine-EPINEPHrine 1 %-1:140178 inj 10 mg 10 mg, Subcutaneous, ONCE, On Yudi 05/27/24 at 1300, For 1 dose Given 05/27/2024 1:24 PM EST 10 mg Breas t Left documented in this encounter Care Teams Stone Hand Relationship Specialty Start Date End Date Jewell Leyva, SAPNAC [address] [place] [address] PCP - General Physician Auto Body Builder Apprentice 05/10/24 documented as of this encounter
--- OUTSIDE RECORDS SUMMARY | 2024-10-09 06:41 | External Medical Summary | Summary of Care ---
Author Name Unknown Organization [facility] Address [address] [place] [address] Phone [phone] Care Team Providers Care Analysis Mgr Name Role Phone Jewell Leyva PA-C Primary Care Provider [phone] Reason for Visit * Reason Comments NEW PATIENT Left breast cyst. It 's getting bigger. * Evaluate & Treat - Unlimited Visits (Within 30 days (routine)) - Pending Review Specialty Diagnoses / Procedures Referred By Jacobo lo Referred To Contact General Surgery Diagnoses Cyst of left breast Gordon October Faye, EUGENIA [address] [place] [address] Fawn Lindsay MD [address] [facility] [place] [address] Referral ID Status Reason Start Date Expiration Date Visits Requested Visits Authorized [id number] Pending Review Specialty Services Required [phone] Encounter Details Date Type Department Care Team (Late st Contact Info) Description 05/27/2024 11:30 AM EST Office Visit General Surgery, [facility] [address] [place] [address] Fawn [facility] [place] [address] Breast cyst, left* Allergies Active Allergy Reactions [...] Start Date End Date Status Lidocaine-EPINEPHrine 1 %-[id number] inj 10 mgIndications:Breast cyst, left 10 mg SC ONCE 05/27/2024 05/28/2024 Active documented as of this encounter (statuses [...] Lindsay MD - 05/27/2024 11:44 AM EST [facility] GENERAL SURGERY NEW BREAST EXAM CLINIC NOTES [...] performed by Rajendra Leon MD at ENDOSCOPY 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 BREAST EXAMINATION: Right Breast: Right [...] breast cyst. Patient had mammogram done at [facility] on 01/16/2024; 03/18/2024. BREAST HISTORY: Mass: No [...] cyst, left- Primary documented in this encounter Care Teams Analysis Mgr Relationship Specialty Start Date End Date Gordon Jewell EUGENIA Mckinney [address] [place] [address] PCP - General Physician Chlorinator 05/10/24 documented as of this encounter
--- OUTSIDE RECORDS SUMMARY | 2024-10-09 06:41 | External Medical Summary | Summary of Care ---
Author Name Unknown Organization [facility] Address [address] [facility] [place] [address] Phone [phone] Care Team Providers Care Dental Receptionist Name Role Phone Jewell Leyva EUGENIA Primary Care Provider [phone] Reason for Visit * Reason Onset Date Comments Information 06/02/2024 Encounter Details Date Type Department Care Team (Late st Contact Info) Description 06/02/2024 Telephone Radiology [facility] [address] [place] [address] Fawn Lindsay MD [address] [place] [address] Information Allergies Active Allergy Reactions Criticality Noted Date Comments Vancomycin Low 03/16/2022 documented as of this encounter (statuses as of 06/02/2024) Medications MULTIVITAMINS PO TABS one a day [...] as of this encounter (statuses as of 06/02/2024) Active Problems Problem Noted Date Diagnosed Date ASCUS with positive high risk HPV cervical 06/04 Major depressive disorder, r ecurrent severe without psychotic features 04/10/2023 Major depressive disorder, single episode, moder ate 06/07/2021 Encounter for other general counseling or advice on contraception 04/27/2010 Overview (04/20/2024): ICD-10 update of inactive term documented as of this encounter (statuses as of 06/02/2024) Resolved Problems Problem Noted Date Diagnosed Date Resolved Date Current mild episode of chente r depressive disorder without prior episode 08/19/2018 4 ABN PAP SMEAR-CERVIX 999 Encounter for supervision of other normal 05/28/2016 Overview (11/21/2015): ICD-10 update of inactive term documented as of this encounter (statuses as of 06/02/2024) Immunizations Name Administration Dates Next Due TD [...] encounter Miscellaneous Notes * Telephone Encounter - Chelsie Young RDMS - 06/02/2024 11:09 AM EST Following completion of left breast ultrasound guided core biopsy, discharge instructions were provided and patient expressed understanding. Specimen was delivered to Zena in the lab at 11:08am. documented in this encounter Plan of Treatment Scheduled Procedures Name Priority Associated Diagnoses Date/Ti [...] filedocumented as of this encounter Care Teams Dental Receptionist Relationship Specialty Start Date End Date Gordon October EUGENIA Mckinney [address] [place] [address] PCP - General Physician Automatic Chief 05/10/24 documented as of this encounter
--- OUTSIDE RECORDS SUMMARY | 2024-10-09 06:41 | External Medical Summary | Summary of Care ---
Author Name Unknown Organization [facility] Address [address] [facility] [place] [address] Phone [phone] Care Team Providers Care Bumboater Name Role Phone Jewell Leyva EUGENIA Primary Care Provider [phone] Encounter Details Date Type Department Care Team (Late st Contact Info) Description 05/19/2024 Orders Only PATIENT PORTAL DO NOT DELETE THIS DEPT USED BY [place] [id number] Allergies Active Allergy Reactions Criticality Noted Date Comments Vancomycin Low 03/16/2022 documented as of this encounter (statuses as of 05/19/2024) Medications Medication Sig Dispensed Refills Start Date [...] as of this encounter (statuses as of 05/19/2024) Active Problems Problem Noted Date Diagnosed Date ASCUS with positive high risk HPV cervical 06/04 Major depressive disorder, r ecurrent severe without psychotic features 04/10/2023 Major depressive disorder, single episode, moder ate 06/07/2021 Encounter for other general counseling or advice on contraception 04/27/2010 Overview: ICD-10 update of inactive term documented as of this encounter (statuses as of 05/19/2024) Resolved Problems Problem Noted Date Diagnosed Date Resolved Date Current mild episode of chente r depressive disorder without prior episode 08/19/2018 4 ABN PAP SMEAR-CERVIX 999 Encounter for supervision of other normal 05/28/2016 Overview: ICD-10 update of inactive term documented as of this encounter (statuses as of 05/19/2024) Immunizations Name Administration Dates Next Due TD [...] 11:30 AM EST Office Visit General Surgery, [facility] [address] [place] [address] Fawn Lindsay MD [address] [place] [address] Scheduled Procedures Name Priority Associated Diagnoses Date/Ti [...] filedocumented as of this encounter Care Teams Bumboater Relationship Specialty Start Date End Date Jewell Leyva PA-C [address] [place] [address] PCP - General Physician Bath House Attendant 05/10/24 documented as of this encounter
--- OUTSIDE RECORDS SUMMARY | 2024-10-09 07:07 | External Medical Summary | Summary of Care ---
Author Name Unknown Organization [facility] Address [address] [facility] [place] [address] Phone [phone] Care Team Providers Care Integration Architect Name Role Phone Gordon Jewell Faye PAPrema Primary Care Provider [phone] Encounter Details Date Type Department Care Team (Late st Contact Info) Description 10/08/2024 Orders Only Hematology/Oncology Treatment, [place] [address] [facility] [place] [place] [address] Darryn Fong MD [address] [place] [address] Dehydration* Allergies Active Allergy Reactions Criticality Noted Date Comments Vancomycin Low 03/16/2022 documented as of this encounter (statuses as of 10/08/2024) Medications MULTIVITAMINS PO TABS one a day [...] as of this encounter (statuses as of 10/08/2024) Active Problems Problem Noted Date Diagnosed Date Chemotherapy induced nausea and vomiting 025 Dehydration 07/05/2024 Malignant neoplasm of overla pping sites of left breast in female, estrogen receptor negative 06/14/2024 Encounter for antineoplastic chemotherapy 2023 Prevention of chemotherapy-induced neutropenia 1 08/14/2023 Food insecurity 05/31/2024 Overview: Per [facility] Funding Pharmacy Protocol ASCUS with positive high risk HPV cervical 06/04 Major depressive disorder, r ecurrent severe without psychotic features 04/10/2023 Major depressive disorder, single episode, moder ate 06/07/2021 Encounter for other general counseling or advice on contraception 04/27/2010 Overview (04/20/2024): ICD-10 update of inactive term documented as of this encounter (statuses as of 10/08/2024) Resolved Problems Problem Noted Date Diagnosed Date Resolved Date Current mild episode of chente r depressive disorder without prior episode 08/19/2018 4 ABN PAP SMEAR-CERVIX 999 Encounter for supervision of other normal 05/28/2016 Overview (11/21/2015): ICD-10 update of inactive term documented as of this encounter (statuses as of 10/08/2024) Immunizations Name Administration Dates Next Due TD [...] Description 10/18/2024 9:00 AM EDT [facility] [address] [place] [address] Pratik Quinn MD [address] [place] [address] 10/21/2024 9:00 AM EDT Laboratory Laboratory [address] [place] [address] [place] [phone] [place], [address] [place] [address] 10/21/2024 9:30 AM EDT Office Visit Hematology/Oncology [facility] [place] [address] [place] [address] Ama Barksdale CRNP [address] [place] [address] 10/21/2024 10:00 AM EDT Hem/Onc Treatment Hematology/Oncology Treatment, [place] [address] [place] [address] Rayna, Chair 7 Hem Onc [facility] [address] [facility] [place] [address] Scheduled Procedures Name Priority Associated Diagnoses Date/Ti [...] 07/23, 12/21/2015, Additional history exists Diabetes Screening 10/09/2027 10/08/2024, 0 09/30/2024, 09/08/2024, Additional history exists Cervical Cancer Screening 06/04/2028 [...] this encounter Medical Devices Implanted Type Area Optical Goods Drilling Machine Operator Device Identifier Shelf Expiration Date Model / Serial / Lot Mediport Power Mri 8fr [id number] - [id number] Implanted:Qty : 1 on 06/23/2024 by Rubén Hou MD at OR [facility] Right: Chest CR BARD : PERIPHERAL VASCULAR 06/19/2025 [id number] / / [id number] Port Implant W8f Poly Cath - [id number] Implanted:Qty : 1 on 06/23/2024 by Rubén Hou MD at OR [facility] CR BARD : PERIPHERAL VASCULAR [id number] 06/19/2025 [id number] / / [id number] documented as of this encounter Results * MAGNESIUM (10/08/2024 3:03 PM EDT) Magnesium 1.8 1.5 - 2.6 mg/dL 10/08/2024 3:37 PM EDT [facility] Blood Venous blood specimen / Unknown Venipuncture / Unknown 10/08/2024 3:03 PM EDT 10/08/2024 3:03 PM EDT us Darryn Fong MD LAB BLOOD ORDERABLES Final Res ult [facility] [address] [facility] [place] [address] documented in this encounter Visit Diagnoses Diagnosis Dehydration- Primary documented in this encounter Care Teams Integration Architect Relationship Specialty Start Date End Date Jewell Leyva PA-C [address] [facility] [place] [id number] PCP - General Physician Pin Inserter 05/10/24 documented as of this encounter
--- NOTE | 2024-10-09 07:55 | Electrocardiogram Report ---
Test Reason : Blood Pressure : */* mmHG Vent. Rate : 90 BPM Atrial Rate : 90 BPM P-R Int : 128 ms QRS Dur : 86 ms QT Int : 358 ms P-R-T Axes : 46 48 27 degrees QTcB Int : 437 ms Normal sinus rhythm Normal ECG No previous ECGs available Confirmed by Sherwin Nix ([id number]) on 10/09/2024 7:55:01 AM Referred By: Darryn Fong Confirmed By: Sherwin Nix
[2024-10-09] MEDS: VITAMIN B COMPLEX TAB PO SCH (08:36)
[2024-10-09] MEDS: CHOLECALCIFEROL 25 MCG (1000 UNITS) TAB PO SCH (08:36)
--- NOTE | 2024-10-09 08:46 | Oncology Consultation ---
Date of Consultation October 09, 2024 Assessment & Plan (1) Breast cancer, left: (2) Neutropenic fever: Plan -Pancytopenia due to chemotherapy. She is currently in the [place] period at which point counts expected to be the lowest. Agree with broad-spectrum antibiotics and infectious workup. -Since she already received long-acting G-CSF on 10/01/2024 and labs obtained today show improvement in WBC as well as ANC okay to hold off on further G-CSF treatments for now. Recommend considering Short acting G-CSF if ANC does not continue to improve over the next 24 to 48 hours. Thank you for this consult. Please feel free to call if you have further questions. Patient to continue outpatient follow-up with Dr. Fong upon discharge from hospital. History of Present Illness Reason for Consultation: neutropenic fever Attending Physician: Aleisha Dean MD History of Present Illness 48-year-old female with medical history significant for triple negative left breast cancer for which she is followed by Dr. Fong at [facility] and is receiving neoadjuvant chemoimmunotherapy treatment per keynote 522. She recently started phase 2 of treatment with pembrolizumab, doxorubicin and cyclophosphamide on 09/30/2024 and received G-CSF on 10/01/2024. She presented with neutropenic fever. Labs on admission revealed WBC of 0.5, hemoglobin 8.5, hematocrit 23.8 and platelet count of 39,000. She has not had any more episodes of fever since admission. Currently on broad-spectrum antibiotics. Workup for infection inc luding respiratory panel, urinalysis, chest x-ray has been negative. Also had blood cultures which are still pending. Allergies Allergy/AdvReac Type Severity Reaction Status Date / Time vancomycin Allergy Mild Itching Verified 10/08/24 19:15 Home Medications Medication Instructions Recorded Confirmed Type paroxetine HCl 40 mg tablet 40 mg PO DAILY 03/15/22 10/08/24 History cholecalciferol (vitamin D3) 25 0 mcg PO DAILY 10/08/24 10/08/24 History mcg (1,000 unit) capsule (Vitamin D3) olanzapine 10 mg tablet 10 mg PO UD 10/08/24 10/08/24 History sennosides 8.6 mg tablet (Senokot) 8.6 mg PO DAILY 10/08/24 10/08/24 History vitamin B complex 1 cap PO DAILY 10/08/24 10/08/24 History Patient History Medical History Encounter for pre-operative examination Cat bite Lymphangitis Cellulitis of hand, right Bite by animal Surgical History History of colposcopy Family History Other Cancer Diabetes Social History Smoking Status: Never smoker Second Hand Exposure: No; Do You Dip or Chew Tobacco: No; Tobacco Cessation Education Requested by Patient: No Hx Alcohol Use: No Hx Substance Use: No Preferred Language: Tamazight Communication Ability: Effective Senior Technical Manager Required: No Beliefs That Will Affect Care: None marital status: Single Current Living Situation: Spouse How many Children do You have: 0 Other Information That Helps Us Care for You: No Feels Safe at Home: Yes Safety Concerns: Feels Safe At This Time Assistive Devices: None Results & Data Vital Signs (Past 12 Hours) Vital Signs Temp Pulse Pulse Resp BP Pulse Ox O2 Del Method 10/09/24 07:53 70 17 115/61 94 Room Air 10/09/24 03:03 36.8 C 10/09/24 01:11 37.3 C 10/09/24 00:01 37.2 C 84 16 127/67 98 Room Air 10/08/24 23:09 93 H 16 121/82 98 Room Air 10/08/24 22:52 36.6 C 86 23 122/82 96 Room Air 10/08/24 21:52 86 10/08/24 21:00 90 21 108/72 94 Room Air
[2024-10-09 10:30] LABS: Vitamin B12 > 1500 pg/ml (180-914)
[2024-10-09] MEDS: SENNA 8.6 MG TAB PO SCH (14:00)
--- NOTE | 2024-10-09 19:43 | Hospitalist Progress Note ---
Date of Service October 09, 2024 Assessment & Plan (1) Neutropenic fever: Plan Severe neutropenia Pancytopenia secondary to chemo Left breast cancer diagnosed on 06/02/2024. Triple negative, HER2 [place] 1+ Last chemo treatment 09/30/24. Keytruda, Cytoxan, paclitaxel. Had pegfilgrastim on 10/01/24. Temp 38.8C at oncology clinic and found to be neutropenic. Ongoing Nausea, anorexia and decreased oral intake since last chemo treatment CBC with Diff noting leukopenia and neutropenia UA unremarkable. Negative respiratory BioFire panel CXR: No acute infiltrate Neutropenic precautions IVF Blood cultures NGTD MRSA swab negative Cefepime, linezolid- hold home paroxetine while on linezolid Hematology/Oncology consult, appreciate recs Hypomagnesemia replete as needed Anemia Hgb in 7.8 to 8.5 range AM iron panel b12 and folate levels normal Continue to monitor H/H Diet: regular DVT prophylaxis: SCDs with hgb of 7.8 Dispo: Home once medically stable Admission and Anticipated Discharge Date Admission Date: October 08, 2024 Subjective pt was seen while still down in the ED Stated that she was feeling better but still fatigued later asking for her paroxetine and senekot to be resumed Review of Systems Review of Systems: All systems reviewed & are unremarkable except as noted in Subjective Physical Exam Physical Exam: General: Alert, oriented. No acute distress HEENT: NC/AT CV: RRR Resp: Breath sounds clear bilaterally, no increased effort of breathing Abdomen: Soft, nontender Extremities: No edema in lower extremities bilaterally. Results & Data Results & Data Vital Signs (Past 12 Hours) Vital Signs Temp Pulse Resp BP Pulse Ox O2 Del Method 10/09/24 10:19 36.6 C 77 19 111/66 99 Room Air 10/09/24 07:53 70 17 115/61 94 Room Air 10/09/24 03:03 36.8 C Diagnostic Findings Chest X-Ray 10/08/24 17:09 Chest radiograph, one view History: Sepsis Comparison: 03/17/2022 Findings: Single AP view of the chest performed. No focal consolidation or pleural effusion. No pneumothorax. Right chest wall port with catheter tip at the mid SVC. The cardiomediastinal silhouette is within normal limits. Normal pulmonary vascularity. No evidence for lymphadenopathy. No visualized bony or soft tissue abnormality. Impression: Normal chest radiograph Electronically signed by Inder Tao 10-08-2024 5:50 PM
[2024-10-09 20:14] VITALS: PULSE 96; O2SAT 100
[2024-10-09] MEDS: DOCUSATE SODIUM/SENNA 50/8.6MG TAB PO SCH (21:40)
[2024-10-10 06:32] LABS: Hematocrit (blood only) 25.7 % (37.0-47.0); Hemoglobin 8.9 g/dl (12.0-16.0); Mean Corpuscular Hemoglobin 33.1 pg (25.0-34.0); Mean Corpuscular Hgb Conc 34.6 g/dL (32.0-36.0); Mean Corpuscular Volume 95.5 fL (80.0-100.0); Mean Platelet Volume 11.2 fL (9.4-12.4); Platelet Count 40 K/uL (130-400); RDW Coefficient of Variation 13.2 % (11.5-14.5); RDW Standard Deviation 46.3 fL (36.4-46.3); Red Blood Count 2.69 M/uL (4.20-5.40)
[2024-10-10 06:43] LABS: Albumin Globulin Ratio 1.8 (0.9-2); Albumin Level 3.5 gm/dl (3.4-5.0); BUN Creatinine Ratio 8.6 (10-20); Bilirubin,Total 0.3 mg/dl (0.2-1.0); Calcium 8.1 mg/dl (8.6-10.3); Globulin 1.9 gm/dl (2.5-4.0); Phosphorus 3.8 mg/dl (2.5-4.9); Potassium 3.9 mmol/L (3.5-5.1); Total Protein 5.4 gm/dl (6.0-8.3)
[2024-10-10 06:47] LABS: Dohle Bodies 1+; Polychromasia 1+
[2024-10-10 06:48] LABS: Basophils # (auto) 0.01 K/uL (0.00-0.20); Basophils % (auto) 0.7 %; Eosinophils # (auto) 0.02 K/uL (0.00-0.50); Eosinophils % (auto) 1.3 %; Immature Granulocytes # (auto) 0.01 K/uL (0.01-0.20); Immature Granulocytes % (auto) 0.7 %; Lymphocytes # (auto) 1.08 K/uL (1.20-3.40); Monocytes # (auto) 0.11 K/uL (0.11-0.59); Monocytes % (auto) 7.3 %; Neutrophils # (auto) 0.27 K/uL (1.40-6.50)
[2024-10-10 07:02] LABS: Ferritin 468.2 ng/ml (8-388)
[2024-10-10 08:33] VITALS: RESP 16; TEMP 97.7
[2024-10-10] MEDS ORDERED: PARoxetine HCL 20 MG TAB PO SCH (09:00)
--- NOTE | 2024-10-10 12:02 | Discharge Summary ---
Discharge Summary Date of Service October 10, 2024 Principal Dx & Hospital Course #1 = Principal Diagnosis (1) Neutropenic fever: Plan Patient is a 48 year old female with PMHx significant for breast cancer currently on chemo and depression who presented to the ER from her cancer clinic with concern for a fever. Severe neutropenia Pancytopenia secondary to chemo Left breast cancer diagnosed on 06/02/2024. Triple negative, HER2 [place] 1+ Last chemo treatment 09/30/24. Keytruda, Cytoxan, paclitaxel. Had pegfilgrastim on 10/01/24. Temp 38.8C at oncology clinic and found to be neutropenic. Ongoing Nausea, anorexia and decreased oral intake since last chemo treatment CBC with Diff noting leukopenia and neutropenia UA unremarkable. Negative respiratory Bio[employer] panel CXR: No acute infiltrate Neutropenic precautions IV Fluids Blood cultures NGTD- will need followup MRSA swab negative Treated with Cefepime and linezolid (held home paroxetine while on linezolid) Hematology/Oncology consulted inpatient at [facility]. Dr Patterson recommended the following: "...-Pancytopenia due to chemotherapy. She is currently in the [place] period at which point counts expected to be the lowest. Agree with broad-spectrum antibiotics and infectious workup. -Since she already received long-acting G-CSF on 10/01/2024 and labs obtained today show improvement in WBC as well as ANC okay to hold off on further G-CSF treatments for now. Recommend considering Short acting G-CSF if ANC does not continue to improve over the next 24 to 48 hours. Thank you for this consult. Please feel free to call if you have further questions. Patient to continue outpatient follow-up with Dr. Fong upon discharge from hospital..." On the day of discharge, pt anxious to return home. Case was discussed with her oncologist Dr. Darryn Fong via telephone who recommended discharge home since WBC was improving and pt had no further fevers since admission. He recommended close followup of the pending blood cultures and advised that she will need to return should they subsequently come back positive. He further recommended discharge home on Levaquin, noting there was no need for empiric antifungal or antiviral prophylaxis as well. He noted that she will be seen closely in the clinic as she currently has a followup appointment scheduled for treatment. Final blood cultures pending at the time of discharge. Will need close monitoring of blood counts. Pt was discharged home on Levaquin 750mg daily x 7 days with close PCP and Hematology followup. Hypomagnesemia repleted as needed Anemia Hgb in 7.8 to 8.5 range iron panel normal b12 and folate levels normal Continue to monitor H/H Notes For Next Care Provider Final blood cultures pending at the time of discharge. Will need close monitoring of blood counts. Pt was discharged home on Levaquin 750mg daily x 7 days with close PCP and Hematology followup. Medication Changes From Visit levofloxacin 750mg daily x 7 days Admission HPI Per Admitting Provider Patient is 48 year old female with PMH depression, breast cancer currently on chemo presented to ER from cancer clinic for fever today. History triple negative breast cancer. Last chemo treatment 09/30/24. Keytruda, Cytoxan, paclitaxel. Had pegfilgrastim on 10/01/24. Since this last chemo treatment has been having ongoing nausea, decreased appetite and decreased oral intake. Patient was seen at oncology today for some fluids. States has not been feeling well, feeling very fatigued, tired, nauseated since her last chemo treatment. While in clinic had recorded temperature of 38.8C. Her labs today showed neutropenia and patient was referred to ER for further evaluation. Patient states has been taking Zofran at home as needed and feels like that helps some with nausea. No history neutropenic fever. Denies recent antibiotic use. Denies noted erythema, edema or pain at port site. States today two episodes loose stool but not overt diarrhea yet. She states takes senna daily and thought might be secondary to that. Denies abdominal pain. Denies recent travel or known ill contacts. Lives at home with . 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 Denies any known ill contacts. Denies known mold exposure. Denies around farm animals. Denies hematemesis, melena, hematochezia, JIMÉNEZ, syncope, vision changes, neck pain, CP, SOB, palpitations, cough, sore throat, choking, otalgia, rhinorrhea, abdominal pain, extremity edema, rashes, urinary symptoms. Admission Exam Per Admitting Provider GENERAL APPEARANCE: AxOx4, chronically ill appearing HEENT: NC, AT. MMM. EOMI, clear conjunctiva, oropharynx clear. alopecia NECK: Supple without lymphadenopathy. No stiffness or restricted ROM. right port without signs of superimposed infection HEART: Normal rate and regular rhythm, normal S1/S1, no m/r/g LUNGS: CTAB, moving air well. No crackles or wheezes are heard. ABDOMEN: Soft, nontender, nondistended with good bowel sounds heard. BACK: No CVAT, no obvious deformity. EXTREMITIES: Without cyanosis, clubbing or edema. NEUROLOGICAL: Grossly nonfocal. Alert and oriented, moving all 4 extremities. CN not formally tested but appear grossly intact. Skin: Warm and dry without any rash. Discharge Exam General: Alert, oriented. No acute distress HEENT: NC/AT CV: RRR Resp: Breath sounds clear bilaterally, no increased effort of breathing Abdomen: Soft, nontender Extremities: No edema in lower extremities bilaterally. Updated Medication List Medication Instructions Recorded Confirmed Type paroxetine HCl 40 mg tablet 40 mg PO DAILY 03/15/22 10/08/24 History cholecalciferol (vitamin D3) 25 0 mcg PO DAILY 10/08/24 10/08/24 History mcg (1,000 unit) capsule (Vitamin D3) olanzapine 10 mg tablet 10 mg PO UD 10/08/24 10/08/24 History sennosides 8.6 mg tablet (Senokot) 8.6 mg PO DAILY 10/08/24 10/08/24 History vitamin B complex 1 cap PO DAILY 10/08/24 10/08/24 History levofloxacin 750 mg tablet 750 mg PO DAILY 7 days #7 tabs 10/10/24 Rx Hospital Stay Data Consultations 10/08/24 19:02 ED Decision to Admit Stat 10/08/24 21:59 Consult Oncology Routine Diagnostic Imagining Performed Chest X-Ray 10/08/24 17:09 Chest radiograph, one view History: Sepsis Comparison: 03/17/2022 Findings: Single AP view of the chest performed. No focal consolidation or pleural effusion. No pneumothorax. Right chest wall port with catheter tip at the mid SVC. The cardiomediastinal silhouette is within normal limits. Normal pulmonary vascularity. No evidence for lymphadenopathy. No visualized bony or soft tissue abnormality. Impression: Normal chest radiograph Electronically signed by Inder Tao 10-08-2024 5:50 PM Pending Results Patient Have Any Pending Studies at Discharge: No Discharge Instructions Given to Patient (Per Discharging Provider) Forrest Garcia were seen and treated for neutropenic fever. Your counts have since started to go back up. We treated you with IV and oral antibiotics and you had no further fevers since you have been here. You would like to go home. After further discussion with your Manager Scientific/Oncologist Dr. Darryn Fong, he recommended discharge on the antibiotic Levaquin. A prescription for that was sent to your pharmacy. You can continue with your paroxetine while on this antibiotic. We will follow up on the blood cultures and there is a chance you may have to return to the hospital if these do indeed start to grow bacteria. Please keep close follow up with your primary care provider after discharge. Please do not hesitate to come back to the emergency room if your symptoms worsen or return. It was a pleasure taking care of you while you were here. Total Time Total Time Spent Total Time Spent (In Minutes): 60
[2024-10-10 12:29] VITALS: BP 131/86
[2024-10-10] MEDS: HEPARIN 100 UNIT/ML 5ML FLUSH ONE (12:40)
== END 2024-10-10 13:10 | disposition home or self-care (01) | DRG 809 ==
LOC: ED 16:53 → SUATTDRO 19:28 → INTOOBSV 19:28 → EDINP 19:28 → 3E 10-09 15:50

== ENCOUNTER 2024-12-09 14:33 | Inpatient (IN) ==
[2024-12-09 16:15] LABS: Albumin Globulin Ratio 1.6 (0.9-2); Albumin Level 4.2 gm/dl (3.4-5.0); BUN Creatinine Ratio 19.2 (10-20); Bilirubin,Total 1.1 mg/dl (0.2-1.0); Calcium 9.2 mg/dl (8.6-10.3); Creatinine Clr Calc Pharmacy 107.5 ml/min; Globulin 2.7 gm/dl (2.5-4.0); Potassium 4.3 mmol/L (3.5-5.1); Total Protein 6.9 gm/dl (6.0-8.3)
[2024-12-09 16:50] LABS: Hematocrit (blood only) 29.1 % (37.0-47.0); Hemoglobin 10.4 g/dl (12.0-16.0); Mean Corpuscular Hemoglobin 33.9 pg (25.0-34.0); Mean Corpuscular Hgb Conc 35.7 g/dL (32.0-36.0); Mean Corpuscular Volume 94.8 fL (80.0-100.0); Platelet Count 49 K/uL (130-400); RDW Coefficient of Variation 13.2 % (11.5-14.5); RDW Standard Deviation 46.1 fL (36.4-46.3); Red Blood Count 3.07 M/uL (4.20-5.40); White Blood Count 0.57 K/ul (4.8-10.8)
[2024-12-09 16:51] LABS: Polychromasia 1+; Tear Drop Cells 1+
[2024-12-09 16:52] LABS: Basophils # (auto) 0.01 K/uL (0.00-0.20); Basophils % (auto) 1.8 %; Eosinophils # (auto) 0.01 K/uL (0.00-0.50); Eosinophils % (auto) 1.8 %; Lymphocytes % (auto) 70.2 %; Monocytes # (auto) 0.04 K/uL (0.11-0.59); Neutrophils # (auto) 0.11 K/uL (1.40-6.50); Neutrophils % (auto) 19.2 %
--- NOTE | 2024-12-09 16:59 | Emergency Department Note ---
Impression & Plan Neutropenic fever, Breast cancer, left, Pancytopenia ED Provider Note NAME: RENEE HUTTON AGE: 49 SEX: F : 1975 ARRIVES VIA: Walk-In INFORMANT: Patient ED PROVIDER(S): Michael Hart MD CHIEF COMPLAINT: Fever, neutropenia, referred. PLAN: Disposition: Admit MEDICAL DECISION MAKING: The patient is a pleasant 49-year-old woman with a past medical history of breast cancer following with the [facility] undergoing chemotherapy with last treatment a week ago who presents to the emergency department for evaluation of fevers, body aches, nausea and vomiting that began today. Patient denies any cough, congestion, chest pain, shortness of breath, urinary symptoms. She reports that her treatment last week was her last planned treatment. She was admitted to this facility in September for similar neutropenic fever presentation where she understands there was no source of infection identified. On my evaluation the patient is no distress, with temperature of 37.4 and heart rate in the 130s improving with IV fluid hydration. Blood pressure is stable. O2 saturation is 98% on room air with normal respiratory effort. She appears clinically dry. Lungs are clear. Abdomen is benign. The patient's right upper chest wall port site is clean dry and intact. EKG without overt acute ischemia. CXR negative for acute cardiopulmonary process per my personal preliminary review/interpretation. WBC 0.57 with neutropenia with ANC of 0.11. H/H similar to improved from prior values. Platelets 49K similar to recent values without evidence of bleeding. Chemistry without metabolic acidosis. Electrolytes unremarkable. Total bilirubin 1.1, nonspecific LFTs otherwise unremarkable. Procalcitonin is not elevated. High-sensitivity troponin 9.3, within normal limits. Blood cultures were obtained and empiric treatment initiated with IV cefepime. Case was discussed with [facility] PAC, with [facility] hospitalist who will evaluate the patient for admission. Further management per admitting team. Triage Nursing notes reviewed and agree them. Prior/external medical records reviewed Vital Signs: reviewed Differential diagnosis: Viral syndrome, otitis, pharyngitis, pneumonia, influenza, meningitis, urinary tract infection, sepsis, bacteremia, as well as other pathologies. ER treatment provided: See below. Diagnostics interpreted by me: ECG: Sinus tachycardia, 119 bpm, no ectopy, no overt ST elevation or depression, QTc 427, QRS 72. Cardiac Monitoring: An order for continuous cardiac monitoring was placed and demonstrated Sinus tachycardia, 119 bpm, no ectopy. Laboratory studies: See below Imaging studies: See below Consultation(s): Yuriy Cao PAC, with Jody [facility] hospitalist HPI: Per MDM. ROS: See above HPI for pertinent positives & negatives. A total of 10 systems reviewed and were otherwise negative. VITALS:See Below PHYSICAL EXAMINATION: GENERAL: Awake, alert, in no distress HENT: Normocephalic, atraumatic. Oropharynx with dry mucous membranes and otherwise unremarkable. EYES: Normal conjunctiva. Sclera non-icteric. NECK: Supple. No nuchal rigidity. FROM. No JVD. RESPIRATORY: Clear to auscultation. CARDIAC: Tachycardic rate, normal rhythm. Extremities warm and well perfused. Pulses equal. ABDOMEN: Soft, non-distended. No tenderness to palpation. No rebound or guarding. No masses. MUSCULOSKELETAL: Chest examination reveals no tenderness. Right upper chest wall port site is clean dry and intact. The back is symmetrical on inspection without obvious abnormality. There is no CVA tenderness to palpation. No joint edema. LOWER EXTREMITIES: Calves are equal size bilaterally and non-tender. No edema. No discoloration. NEURO: Normal sensorium. No sensory or motor deficits noted. SKIN: No rash or jaundice noted. Michael Hart MD Past Med/Surg History Problem List (Updated 12/09/24 @ 23:07 by Michael Hart MD) Pancytopenia (Acute) Triple negative breast cancer Depression Breast cancer, left (Acute) Neutropenic fever (Acute) Flexor tenosynovitis of thumb Anxiety and depression Medical History Encounter for pre-operative examination Cat bite Lymphangitis Cellulitis of hand, right Bite by animal Surgical History History of colposcopy Family History Other Cancer Diabetes Social History Smoking Status: Never smoker Second Hand Exposure: No; Do You Dip or Chew Tobacco: No; Hx Alcohol Use: No Hx Substance Use: No Preferred Language: Yoruba Communication Ability: Effective Open Hearth Melter Required: No Beliefs That Will Affect Care: None marital status: Single Current Living Situation: Spouse How many Children do You have: 0 Feels Safe at Home: Yes Assistive Devices: None Allergies Allergies Allergy/AdvReac Type Severity Reaction Status Date / Time vancomycin Allergy Mild Itching Verified 10/08/24 19:15 Home Meds Home Medications Medication Instructions Recorded Confirmed paroxetine HCl 40 mg tablet 40 mg PO DAILY 03/15/22 12/09/24 cholecalciferol (vitamin D3) 25 25 mcg PO DAILY 10/08/24 12/09/24 mcg (1,000 unit) capsule (Vitamin D3) olanzapine 10 mg tablet 10 mg PO HS 10/08/24 12/09/24 sennosides 8.6 mg tablet (Senokot) 8.6 mg PO DAILY 10/08/24 12/09/24 vitamin B complex 1 cap PO DAILY 10/08/24 12/09/24 Results & Data (ED) Vital Signs Vital Signs - 24 hr 12/09/24 14:57 12/09/24 16:39 12/09/24 17:27 Temperature 37.4 C Temperature Source Oral Pulse Rate 135 H 106 H 105 H Pulse Rate from SpO2 Sensor 109 H Respiratory Rate 18 20 Respiratory Effort / Characteristics Non-Labored Spontaneous Respiratory Depth Normal Respiratory Pattern Regular Blood Pressure 117/72 133/92 Blood Pressure Mean 87 105 Pulse Oximetry 98 98 Oxygen Delivery Method Room Air Sepsis Recent Fever Within 48 Hours Yes Sepsis New/Unexplained Change in Mental Status No Sepsis Action Taken by Nursing No Action Required Laboratory Data Attestation: I reviewed the patient's lab results. 12/09/24 15:38 12/09/24 15:38 Lab Results 12/09/24 12/09/24 Range/Units 15:38 16:12 WBC 0.57 L* (4.8-10.8) K/ul RBC 3.07 L (4.20-5.40) M/uL Hgb 10.4 L (12.0-16.0) g/dl Hct 29.1 L (37.0-47.0) % MCV 94.8 (80.0-100.0) fL MCH 33.9 (25.0-34.0) pg MCHC 35.7 (32.0-36.0) g/dL RDW Std Deviation 46.1 (36.4-46.3) fL RDW Coeff of Le 13.2 (11.5-14.5) % Plt Count 49 L (130-400) K/uL MPV 11.0 (9.4-12.4) fL Immature Gran % (Auto) 0.0 % Neut % (Auto) 19.2 % Lymph % (Auto) 70.2 % [place] % (Auto) 7.0 % Eos % (Auto) 1.8 % Baso % (Auto) 1.8 % Neut # (Auto) 0.11 L* (1.40-6.50) K/uL Lymph # (Auto) 0.40 L (1.20-3.40) K/uL [place] # (Auto) 0.04 L (0.11-0.59) K/uL Eos # (Auto) 0.01 (0.00-0.50) K/uL Baso # (Auto) 0.01 (0.00-0.20) K/uL Immature Gran # (Auto) 0.00 L (0.01-0.20) K/uL Polychromasia 1+ Tear Drop Cells 1+ Sodium 138 (136-145) mmol/L Potassium 4.3 (3.5-5.1) mmol/L Chloride 103 (98-107) mmol/L Carbon Dioxide 26 (21-32) mmol/L Anion Gap 9 (3-11) BUN 14 (6-23) mg/dl Creatinine 0.73 (0.6-1.2) mg/dl Est Cr Clr Drug Dosing 107.5 ml/min eGFR 100.13 BUN/Creatinine Ratio 19.2 (10-20) Glucose 123 H (70-99(Fasting)) mg/dl Lactate 1.9 (0.4-2.0) mmol/L Calcium 9.2 (8.6-10.3) mg/dl Total Bilirubin 1.1 H (0.2-1.0) mg/dl AST 11 L (13-39) U/L ALT 21 (7-52) U/L Alkaline Phosphatase 98 (34-104) U/L Troponin I High Sens 9.3 (0-14) pg/ml Total Protein 6.9 (6.0-8.3) gm/dl Albumin 4.2 (3.4-5.0) gm/dl Globulin 2.7 (2.5-4.0) gm/dl Albumin/Globulin Ratio 1.6 (0.9-2) Procalcitonin 0.19 (0-0.5) ng/ml SARS-CoV-2 (PCR) NEGATIVE (Negative) Administered Medications Nitroglycerin 7.5 inch/Emollient Ointment 67.5 gm/BARCODE IDENTIFIER 1 each 0 inch EXT BID YAYA Stop: 01/08/25 18:59 Last Admin: 12/09/24 19:15 Dose: 7.5 appln Documented By: JIMMY Linezolid (Zyvox) 600 mg in 300 mls @ 300 mls/hr IV Q12H YAYA Stop: 12/11/24 17:59 Last Infusion: 12/09/24 20:13 Dose: Infused Documented By: Admin: 12/09/24 19:08 Dose: 300 mls/hr Documented By: JIMMY Lidocaine HCl (Lidocaine 2% Jelly 5 Ml Tube) 1 ml EXT 6XD YAYA Stop: 01/08/25 18:29 Last Admin: 12/09/24 19:46 Dose: Not Given Documented By: Olanzapine (Olanzapine 10 Mg Tab) 10 mg PO HS YAYA Stop: 01/08/25 20:59 Last Admin: 12/09/24 22:07 Dose: 10 mg Documented By: ROSA M Discontinued Medications Sodium Chloride (Nss) 1,000 mls @ 999 mls/hr IV .Q1H1M YAYA Stop: 12/09/24 18:00 Last Infusion: 12/09/24 18:22 Dose: Infused Documented By: Admin: 12/09/24 16:58 Dose: 999 mls/hr Documented By: Infusion: 12/09/24 16:58 Dose: Infused Documented By: Admin: 12/09/24 16:27 Dose: 999 mls/hr Documented By: Cefepime HCl (Maxipime 2000mg) 2,000 mg in 20 mls @ 5 mls/min IV NOW STA; Protocol Stop: 12/09/24 15:57 Last Admin: 12/09/24 16:26 Dose: 5 mls/min Documented By: Famotidine (Pepcid 20mg Iv Push) 20 mg in 5 mls @ 2.5 mls/min IV NOW STA Stop: 12/09/24 16:45 Last Admin: 12/09/24 16:58 Dose: 2.5 mls/min Documented By: Ondansetron HCl (Ondansetron Inj 2 Mg/Ml 2 Ml Vial) 4 mg IV NOW STA Stop: 12/09/24 16:45 Last Admin: 12/09/24 16:58 Dose: 4 mg Documented By: MR Imaging Data Radiologist's Impression: Chest X-Ray 12/09/24 15:05 Clinical History: Chest pain Technique: A frontal view of the chest was obtained Comparison is made with the prior examination dated 10/08/2024 Findings: There are no confluent pulmonary infiltrates. The heart size is within normal limits. No pleural effusion or pneumothorax is seen. There is no definite pulmonary nodule. No fracture is noted. There is a right chest wall port with its tip in the SVC Impression: No active disease Electronically signed by Boo Lazaro 12-09-2024 4:58 PM Discharge Plan Visit Data Chief Complaint: Fever Stated Complaint: LOW WBC/FEVER ED Provider: Michael Hart Discharge Problem: Neutropenic fever, Breast cancer, left, Pancytopenia Patient Disposition: Admitted As Inpatient Condition: Fair Discharge Instructions Interventions: ED Discharge Assessment Last Done: 12/09/24 20:01 Discharge Problem: Breast cancer, left Qualifiers: Breast location: unspecified site of breast Estrogen receptor status: u nspecified Patient sex: female Qualified Code(s): C50.912 - Malignant neoplasm of unspecified site of left female breast
[2024-12-09 17:20] LABS: Troponin I High Sensitivity 9.3 pg/ml (0-14)
--- NOTE | 2024-12-09 17:30 | History & Physical Report ---
Date of Service December 09, 2024 Assessment & Plan (1) Neutropenic fever: (2) Triple negative breast cancer: Plan: Radha Rivas is a 49y/o F with PMHx significant for triple negative grade 3 left breast invasive ductal carcinoma with left axillary and left internal mammary lymph node involvement, chemotherapy-induced neutropenic fever and depression who presented to the ED for evaluation of a fever. Follows with Dr. Darryn Fong of [facility] hematology/oncology. Diagnosed with triple negative grade 3 left breast invasive ductal carcinoma with left axillary and left internal mammary lymph node involvement in May 2024. Completed most recent cycle of chemotherapy with pembrolizumab, doxorubicin and cyclophosphamide on 12/02/2024. Most recently received prophylactic Pegfilgrastim on 12/03/2024. Remains afebrile in the ED. VSS except for labile tachycardia. Remains in sinus rhythm on telemetry. ANC indicative of severe neutropenia. Lactate negative. Procalcitonin negative. CXR with no evidence of active disease. S/p dose of IV cefepime in the ED. Check MRSA nasal swab. Follow blood cultures (obtained from both the port site and periphery). Continue empiric ABX coverage with IV cefepime + linezolid. Follow repeat CBC with diff in the AM. Low threshold to consult inpatient oncology if neutropenia not improving for consideration of Neupogen. UA pending. No clear source at this time. Had some mild diarrhea. If recurrence, would consider checking stool studies including C. difficile testing. Other Chronic Medical Conditions: Anal Fissures - Topical nitroglycerin and lidocaine ordered. Warm sitz baths PRN. Depression - Hold home paroxetine for now due to its possible interaction with linezolid. DVT Prophylaxis: SCDs/TEDs Code Status: FULL CODE PCP: Samm Costa MD Disposition: Admit to med/telemetry for further inpatient evaluation and management. Patient seen in collaboration with Dr. Vera. Please see addendum. I spent a total of 62 minutes coordinating, documenting, and providing care for this patient excluding time spent in the performance of separately billed services or time spent by another provider/QHP. This included personally reviewing all current laboratories and imaging studies, medical reconciliation, outpatient chart review and discussion with specialists. This chart was completed in part utilizing Speech Voice Recognition Software. Grammatical errors, random word insertions, pronoun errors, and incomplete sentences are an occasional consequence of this system due to software limitations, ambient noise, and hardware issues. Any formal questions or concerns about the content, text, or information contained within the body of this dictation should be directly addressed to the provider for clarification. History of Present Illness Chief Complaint: Fever Primary Care Provider: Samm Costa MD Radha Rivas is a 49y/o F with PMHx significant for triple negative grade 3 left breast invasive ductal carcinoma with left axillary and left internal mammary lymph node involvement, chemotherapy-induced neutropenic fever and depression who presented to the ED for evaluation of a fever. History obtained from the patient, patient's significant other at bedside, discussion with ED provider and extensive associated chart review. Follows with Dr. Darryn Fong of [facility] hematology/oncology. Diagnosed with triple negative grade 3 left breast invasive ductal carcinoma with left axillary and left internal mammary lymph node involvement in May 2024. Completed most recent cycle of chemotherapy with pembrolizumab, doxorubicin and cyclophosphamide on 12/02/2024. Per Dr. Vega's most recent outpatient note from 12/02/2024, she will continue Keytruda maintenance for a full year if she has complete pathological response. If not, there is consideration for adding on capecitabine. Most recently received prophylactic Pegfilgrastim on 12/03/2024. She was seen and evaluated earlier today by one of the APPs in the [facility] hematology/oncology office at [facility] whom subsequently referred her to the ED for evaluation due to dehydration and neutropenic fever. She has been experiencing worsening fatigue over the past week with increasing nausea which has been somewhat controlled with olanzapine. Decreased oral intake. Describes presyncopal events secondary to dehydration. Had some chills today. Tmax of 101F recorded at home yesterday. Endorses some mild diarrhea. Has anal fissures which she has been treating with topical nitroglycerin and that provides some relief. No urinary complaints. No URI symptoms such as sinus congestion, cough or runny nose. Remains afebrile in the ED. VSS except for labile tachycardia. Remains in sinus rhythm on telemetry. WBC count 0.57k with 19.2% neutrophils, ANC = 109.44 (severe neutropenia). Additional lab work including renal function, LFTs and electrolytes remain stable. Hgb also remains stable. Lactate negative. Procalcitonin negative. Discussed with RN in the ED to draw blood cultures from both the port site as well as from the periphery. Allergies Allergy/AdvReac Type Severity Reaction Status Date / Time vancomycin Allergy Mild Itching Verified 10/08/24 19:15 Home Medications Medication Instructions Recorded Confirmed Type paroxetine HCl 40 mg tablet 40 mg PO DAILY 03/15/22 12/09/24 History cholecalciferol (vitamin D3) 25 25 mcg PO DAILY 10/08/24 12/09/24 History mcg (1,000 unit) capsule (Vitamin D3) olanzapine 10 mg tablet 10 mg PO HS 10/08/24 12/09/24 History sennosides 8.6 mg tablet (Senokot) 8.6 mg PO DAILY 10/08/24 12/09/24 History vitamin B complex 1 cap PO DAILY 10/08/24 12/09/24 History Past Med/Surg History Problem List (Updated 12/09/24 @ 18:19 by Belgica Tian PA-C) Triple negative breast cancer Depression Breast cancer, left Neutropenic fever (Acute) Flexor tenosynovitis of thumb Anxiety and depression Medical History Encounter for pre-operative examination Cat bite Lymphangitis Cellulitis of hand, right Bite by animal Surgical History History of colposcopy Family History Other Cancer Diabetes Social History Smoking Status: Never smoker Second Hand Exposure: No; Do You Dip or Chew Tobacco: No; Hx Alcohol Use: No Hx Substance Use: No Preferred Language: Turkish Communication Ability: Effective Instrument Sterilizer Required: No Beliefs That Will Affect Care: None marital status: Single Current Living Situation: Spouse How many Children do You have: 0 Feels Safe at Home: Yes Assistive Devices: None Review of Systems Review of Systems: At least ten systems reviewed and negative, except as noted in the HPI. Physical Exam Physical Exam: Please refer to Dr. Vera' addendum for physical examination findings. Results & Data Results & Data Vital Signs (Past 12 Hours) Vital Signs Temp Pulse Resp BP Pulse Ox O2 Del Method 12/09/24 17:27 105 H 12/09/24 16:39 106 H 20 133/92 98 12/09/24 14:57 37.4 C 135 H 18 117/72 98 Room Air Laboratory Results Short CBC 12/09/24 Range/Units 15:38 WBC 0.57 L* (4.8-10.8) K/ul Hgb 10.4 L (12.0-16.0) g/dl Hct 29.1 L (37.0-47.0) % Plt Count 49 L (130-400) K/uL BMP 12/09/24 15:38 Sodium 138 Potassium 4.3 Chloride 103 Carbon Dioxide 26 BUN 14 Creatinine 0.73 Glucose 123 H Calcium 9.2 Liver Function 12/09/24 Range/Units 15:38 Total Bilirubin 1.1 H (0.2-1.0) mg/dl AST 11 L (13-39) U/L ALT 21 (7-52) U/L Alkaline Phosphatase 98 (34-104) U/L Albumin 4.2 (3.4-5.0) gm/dl Diagnostic Findings Chest X-Ray 12/09/24 15:05 Clinical History: Chest pain Technique: A frontal view of the chest was obtained Comparison is made with the prior examination dated 10/08/2024 Findings: There are no confluent pulmonary infiltrates. The heart size is within normal limits. No pleural effusion or pneumothorax is seen. There is no definite pulmonary nodule. No fracture is noted. There is a right chest wall port with its tip in the SVC Impression: No active disease Electronically signed by Boo Lazaro 12-09-2024 4:58 PM Medications Administered Sodium Chloride (Nss) 1,000 mls @ 999 mls/hr IV .Q1H1M YAYA Stop: 12/09/24 18:00 Last Admin: 12/09/24 16:58 Dose: 999 mls/hr Documented By: Infusion: 12/09/24 16:58 Dose: Infused Documented By: Admin: 12/09/24 16:27 Dose: 999 mls/hr Documented By: Discontinued Medications Cefepime HCl (Maxipime 2000mg) 2,000 mg in 20 mls @ 5 mls/min IV NOW STA; Protocol Stop: 12/09/24 15:57 Last Admin: 12/09/24 16:26 Dose: 5 mls/min Documented By: Famotidine (Pepcid 20mg Iv Push) 20 mg in 5 mls @ 2.5 mls/min IV NOW STA Stop: 12/09/24 16:45 Last Admin: 12/09/24 16:58 Dose: 2.5 mls/min Documented By: Ondansetron HCl (Ondansetron Inj 2 Mg/Ml 2 Ml Vial) 4 mg IV NOW STA Stop: 12/09/24 16:45 Last Admin: 12/09/24 16:58 Dose: 4 mg Documented By: MR Code Status & VTE Plan Code Status FULL CODE Supervising Physician Co-Signing Physician Notes I have seen and discussed the case with the collaborating advanced practitioner. I agree with the above H&P. I have reviewed and confirmed the patients medical history, the findings on physical examination, and the patients diagnosis and treatment plan with Asmita BELLO and agree with the information documented. In short, Ms. Rivas is a 49 yo woman with triple negative breast cancer admitted for febrile neutropenia. Patient last had chemo on 12/02 and has been feeling poorly ever since. This was her last session of adriamycin. She reports some nausea and vomiting, as well as chills, but otherwise no other sympomts. She notes fever reported at office today of 101F GENERAL APPEARANCE: AxOx4, chronically ill appearing HEENT: NC, AT. MMM. EOMI, clear conjunctiva, oropharynx clear. alopecia NECK: Supple without lymphadenopathy. No stiffness or restricted ROM. right port without signs of superimposed infection, slight overlying bruising HEART: Normal rate and regular rhythm, normal S1/S1, no m/r/g LUNGS: CTAB, moving air well. No crackles or wheezes are heard. ABDOMEN: Soft, nontender, nondistended with good bowel sounds heard. BACK: No CVAT, no obvious deformity. EXTREMITIES: Without cyanosis, clubbing or edema. NEUROLOGICAL: Grossly nonfocal. Alert and oriented, moving all 4 extremities. CN not formally tested but appear grossly intact. Skin: Warm and dry without any rash. #Febrile neutropenia #Severe neutropenia #Triple negative breast cancer on chemo #Immunocompromised no clear source at this time allergy to vanco, MRSA risk given port--will use linezolid for now continue cefepime Follow infectious work up s/p GCSF on 12/03, trend cbc with diff, if not uptrending consider onc consult rest of plan as above I spent a total of 25 minutes coordinating, documenting, and providing care for this patient excluding time spent in the performance of separately billed services. All of the aforementioned completed outside of collaborating with the assigned advanced practitioner for a full treatment plan. I have reviewed the advanced practitioner's documentation, and I agree with, and take responsibility for the plan of care
[2024-12-09 23:10] LABS: Appearance Urine Clear (Clear); Bilirubin Urine Negative (Negative); Blood Urine Negative (Negative); Color Urine Yellow; Glucose Urine UA Negative (Negative); Ketones Urine Trace (Negative); Leukocyte Esterase Urine Negative (Negative); Nitrite Urine Negative (Negative); Protein Urine Negative (Negative); Specific Gravity Urine 1.022 (1.000-1.030); Urobilinogen Urine Negative (Negative)
[2024-12-10 07:06] LABS: Hematocrit (blood only) 22.5 % (37.0-47.0); Hemoglobin 7.9 g/dl (12.0-16.0); Mean Corpuscular Hemoglobin 33.6 pg (25.0-34.0); Mean Corpuscular Hgb Conc 35.1 g/dL (32.0-36.0); Mean Corpuscular Volume 95.7 fL (80.0-100.0); Mean Platelet Volume 11.9 fL (9.4-12.4); Neutrophils # (auto) < 0.50 K/uL (1.40-6.50); Platelet Count 34 K/uL (130-400); RDW Coefficient of Variation 12.9 % (11.5-14.5); RDW Standard Deviation 44.7 fL (36.4-46.3); Red Blood Count 2.35 M/uL (4.20-5.40); White Blood Count 0.46 K/ul (4.8-10.8)
[2024-12-10 07:17] LABS: Albumin Globulin Ratio 1.8 (0.9-2); Albumin Level 3.6 gm/dl (3.4-5.0); BUN Creatinine Ratio 19.7 (10-20); Bilirubin,Total 0.8 mg/dl (0.2-1.0); Calcium 8.3 mg/dl (8.6-10.3); Creatinine Clr Calc Pharmacy 129.7 ml/min; Magnesium 1.8 mg/dl (1.7-2.4); Potassium 3.9 mmol/L (3.5-5.1); Total Protein 5.6 gm/dl (6.0-8.3)
[2024-12-10 07:27] LABS: Polychromasia 1+; Tear Drop Cells 1+
--- NOTE | 2024-12-10 08:44 | Hospitalist Progress Note ---
Date of Service December 10, 2024 Assessment & Plan (1) Triple negative breast cancer: (2) Severe neutropenia: (3) Depression: Plan 49 year old female with PMH significant for triple negative grade 3 left breast invasive ductal carcinoma with left axillary and left internal mammary lymph node involvement, history of chemotherapy-induced neutropenic fever and depression who presented to the ED for evaluation of a low grade fever and is admitted for chemotherapy-induced neutropenic fever. Severe neutropenia Seen at outpatient Heme/Onc clinic on 12/09 with extreme fatigue, dizziness, nausea, and chills and found to have low grade temp of 37.6 Referred to the ED for further evaluation Labs in ED revealed WBC 0.57 with 19.2% neut for total ANC of 109 Patient has been afebrile and VSS except for mild tachycardia ranging from 90s- 100s Discussed with Dr Patterson who notes that these counts are expected in [place] period and expect them to improve over the next few days - recommend broad spectrum abx while waiting for infectious workup Infectious work up so far: -CXR negative -Nasal MRSA negative -Procalcitonin and lactate negative -UA unremarkable -Blood cultures pending Plan: -Discontinued linezolid -Continue broad spectrum coverage with zosyn -Follow blood cultures -Trend CBC with diff -Neutropenic precautions -Consider stool studies if diarrhea recurs (patient had one episode 3 days ago and no BM since) Triple negative breast cancer Follows with Dr. Fong of [facility] Hematology/Oncology: -Diagnosed with triple negative grade 3 left breast invasive ductal carcinoma with left axillary and left internal mammary lymph node involvement in May 2024 -Completed her last cycle of chemotherapy with pembrolizumab, doxorubicin and cyclophosphamide on 12/02/2024 -Received prophylactic Pegfilgrastim on 12/03/2024 -Plan to continue Keytruda maintenance every 3 weeks - next appt on 12/23/2024 -Follow up with Dr Fong on 02/03/2025 Continue olanzapine per home dosing Depression Paroxetine initially held while on linezolid Resume paroxetine per home dosing on 12/11 Anal fissures Continue topical nitroglycerin and lidocaine Warm sitz baths PRN DVT Prophylaxis: SCDs/TEDs Code Status: FULL CODE PCP: Samm Costa MD Disposition: possible dc tomorrow Patient seen in collaboration with Dr Hilario. Please see addendum. I spent a total of 60 minutes coordinating, documenting and providing care for this patient excluding time spent in the performance of separately billed services or time spent by another provider/QHP. Admission and Anticipated Discharge Date Admission Date: December 09, 2024 Supervising Physician Co-Signing Physician Notes I have reviewed the advanced practitioner's documentation, and I agree with, and take responsibility for the plan of care I spent a total of 30 minutes coordinating, documenting, and providing care for this patient excluding time spent in the performance of separately billed services. All of the aforementioned completed while collaborating with the assigned advanced practitioner for a full treatment plan Subjective Patient seen laying in bed Reports she is feeling better today Denies fever, chills, cough, cold symptoms, chest pain, SOB, abdominal pain, N/V/D, weakness Review of Systems Review of Systems: All systems reviewed & are unremarkable except as noted in Subjective Physical Exam Physical Exam: General/Psych: WD/WN, laying in bed, NAD, conversing easily Head: normocephalic, atraumatic Eyes: normal inspection, PERRL, conjunctivae pink ENT: external ear and nose normal, oropharynx normal Neck: normal visual inspection, trachea midline Respiratory: normal respiratory effort, lungs clear to auscultation, no wheeze/rales/rhonchi, no accessory muscle use Cardiovascular: regular rate and rhythm, no murmur/rub/gallop, no JVD Extremities: no cyanosis or clubbing, normal peripheral pulses, no BLE edema Abdomen/GI: normal bowel sounds, soft, nontender Neurologic/MSK: A+Ox3, motor strength 5/5, moves all extremities Skin: no rashes, normal color, warm and dry Results & Data Results & Data Vital Signs (Past 12 Hours) Vital Signs Temp Pulse Pulse Resp BP BP Pulse Ox 12/10/24 08:21 36.7 C 86 18 111/70 95 12/10/24 03:59 36.8 C 81 18 103/67 97 12/09/24 23:30 37.0 C 94 H 18 105/68 95 12/09/24 21:51 89 12/09/24 21:14 86 O2 Del Method 12/10/24 08:21 Room Air 12/10/24 03:59 Room Air 12/09/24 23:30 Room Air 12/09/24 21:51 12/09/24 21:14 Laboratory Results Short CBC 05/22/25 05/23/25 Range/Units 15:38 06:10 WBC 0.57 L* 0.46 L* (4.8-10.8) K/ul Hgb 10.4 L 7.9 L (12.0-16.0) g/dl Hct 29.1 L 22.5 L (37.0-47.0) % Plt Count 49 L 34 L (130-400) K/uL BMP 12/09/24 12/10/24 15:38 06:10 Sodium 138 137 Potassium 4.3 3.9 Chloride 103 105 Carbon Dioxide 26 27 BUN 14 12 Creatinine 0.73 0.61 Glucose 123 H 113 H Calcium 9.2 8.3 L Liver Function 12/09/24 12/10/24 Range/Units 15:38 06:10 Total Bilirubin 1.1 H 0.8 (0.2-1.0) mg/dl AST 11 L 10 L (13-39) U/L ALT 21 16 (7-52) U/L Alkaline Phosphatase 98 74 (34-104) U/L Albumin 4.2 3.6 (3.4-5.0) gm/dl Urine 12/09/24 Range/Units 22:11 Urine Color Yellow Urine Appearance Clear (Clear) Urine pH 5.0 (4.5-7.5) Ur Specific [place] 1.022 (1.000-1.030) Urine Protein Negative (Negative) Urine Glucose (UA) Negative (Negative) I have independently reviewed and interpreted patient's admitting labs including CBC, CMP, mag. Medications Administered Current Inpatient Medications Acetaminophen (Acetaminophen 325 Mg Tab) 650 mg PO Q4H PRN PRN Reason: Pain or Fever Stop: 01/08/25 20:24 Nitroglycerin 7.5 inch/Emollient Ointment 67.5 gm/BARCODE IDENTIFIER 1 each 0 inch EXT BID YAYA Stop: 01/08/25 18:59 Last Admin: 12/10/24 09:02 Dose: 1 appln Piperacillin Sod/Tazobactam Sod (Zosyn) 4.5 gm in 100 mls @ 25 mls/hr IV Q8H YAYA; Protocol Stop: 12/12/24 13:59 Lidocaine HCl (Lidocaine 2% Jelly 5 Ml Tube) 1 ml EXT 6XD YAYA Stop: 01/08/25 18:29 Last Admin: 12/09/24 19:46 Dose: Not Given Magnesium Hydroxide (Magnesium Hydroxide Susp 30 Ml Udc) 30 ml PO Q12H PRN PRN Reason: Constipation Stop: 01/08/25 20:24 Olanzapine (Olanzapine 10 Mg Tab) 10 mg PO HS YAYA Stop: 01/08/25 20:59 Last Admin: 12/09/24 22:07 Dose: 10 mg Ondansetron HCl (Ondansetron Inj 2 Mg/Ml 2 Ml Vial) 4 mg IV Q6H PRN PRN Reason: Nausea Stop: 01/08/25 20:24 Polyethylene Glycol (Polyethylene (Miralax) 17 Gm Pack) 17 gm PO DAILY PRN PRN Reason: Constipation Stop: 01/08/25 20:24 Sennosides (Senna 8.6 Mg Tab) 8.6 mg PO DAILY YAYA Stop: 01/09/25 08:59 Last Admin: 12/10/24 09:11 Dose: 8.6 mg Vitamin B Complex (Vitamin B Complex Tab) 1 tab PO DAILY YAYA Stop: 01/09/25 08:59 Last Admin: 12/10/24 09:03 Dose: 1 tab Vitamin D (Cholecalciferol 25 Mcg (1000 Units) Tab) 25 mcg PO DAILY YAYA Stop: 01/09/25 08:59 Last Admin: 12/10/24 09:03 Dose: 25 mcg
--- NOTE | 2024-12-10 14:05 | Electrocardiogram Report ---
Test Reason : Blood Pressure : */* mmHG Vent. Rate : 119 BPM Atrial Rate : 119 BPM P-R Int : 118 ms QRS Dur : 72 ms QT Int : 304 ms P-R-T Axes : 47 48 20 degrees QTcB Int : 427 ms Sinus tachycardia Otherwise normal ECG When compared with ECG of 08-Oct-2024 17:28, No significant change was found Confirmed by Fernando Garcia [id number]) on 12/10/2024 2:04:29 PM Referred By: REFERRED SELF Confirmed By: Fernando Garcia
[2024-12-11 07:27] VITALS: PULSE 90; RESP 20; TEMP 98.4; O2SAT 97
[2024-12-11 08:04] LABS: Hematocrit (blood only) 22.3 % (37.0-47.0); Hemoglobin 8.1 g/dl (12.0-16.0); Mean Corpuscular Hemoglobin 33.9 pg (25.0-34.0); Mean Corpuscular Hgb Conc 36.3 g/dL (32.0-36.0); Mean Corpuscular Volume 93.3 fL (80.0-100.0); Mean Platelet Volume 10.9 fL (9.4-12.4); Platelet Count 33 K/uL (130-400); RDW Coefficient of Variation 12.6 % (11.5-14.5); RDW Standard Deviation 43.5 fL (36.4-46.3); Red Blood Count 2.39 M/uL (4.20-5.40)
[2024-12-11 08:48] LABS: Basophils # (auto) 0.02 K/uL (0.00-0.20); Basophils % (auto) 2.9 %; Dohle Bodies 1+; Eosinophils # (auto) 0.01 K/uL (0.00-0.50); Eosinophils % (auto) 1.4 %; Lymphocytes # (auto) 0.42 K/uL (1.20-3.40); Monocytes # (auto) 0.07 K/uL (0.11-0.59); Neutrophils # (auto) 0.18 K/uL (1.40-6.50); Neutrophils % (auto) 25.7 %; Polychromasia 1+; Tear Drop Cells 1+
[2024-12-11 09:30] VITALS: BP 105/68
--- NOTE | 2024-12-11 12:00 | Discharge Summary ---
Date of Service December 11, 2024 Admission HPI Per Admitting Provider Radha Rivas is a 49y/o F with PMHx significant for triple negative grade 3 left breast invasive ductal carcinoma with left axillary and left internal mammary lymph node involvement, chemotherapy-induced neutropenic fever and depression who presented to the ED for evaluation of a fever. History obtained from the patient, patient's significant other at bedside, discussion with ED provider and extensive associated chart review. Follows with Dr. Darryn Fong of [facility] hematology/oncology. Diagnosed with triple negative grade 3 left breast invasive ductal carcinoma with left axillary and left internal mammary lymph node involvement in May 2024. Completed most recent cycle of chemotherapy with pembrolizumab, doxorubicin and cyclophosphamide on 12/02/2024. Per Dr. Vega's most recent outpatient note from 12/02/2024, she will continue Keytruda maintenance for a full year if she has complete pathological response. If not, there is consideration for adding on capecitabine. Most recently received prophylactic Pegfilgrastim on 12/03/2024. She was seen and evaluated earlier today by one of the APPs in the [facility] hematology/oncology office at [facility] whom subsequently referred her to the ED for evaluation due to dehydration and neutropenic fever. She has been experiencing worsening fatigue over the past week with increasing nausea which has been somewhat controlled with olanzapine. Decreased oral intake. Describes presyncopal events secondary to dehydration. Had some chills today. Tmax of 101F recorded at home yesterday. Endorses some mild diarrhea. Has anal fissures which she has been treating with topical nitroglycerin and that provides some relief. No urinary complaints. No URI symptoms such as sinus congestion, cough or runny nose. Remains afebrile in the ED. VSS except for labile tachycardia. Remains in sinus rhythm on telemetry. WBC count 0.57k with 19.2% neutrophils, ANC = 109.44 (severe neutropenia). Additional lab work including renal function, LFTs and electrolytes remain stable. Hgb also remains stable. Lactate negative. Procalcitonin negative. Discussed with RN in the ED to draw blood cultures from both the port site as well as from the periphery. Admission Exam Per Admitting Provider GENERAL APPEARANCE: AxOx4, chronically ill appearing HEENT: NC, AT. MMM. EOMI, clear conjunctiva, oropharynx clear. alopecia NECK: Supple without lymphadenopathy. No stiffness or restricted ROM. right port without signs of superimposed infection, slight overlying bruising HEART: Normal rate and regular rhythm, normal S1/S1, no m/r/g LUNGS: CTAB, moving air well. No crackles or wheezes are heard. ABDOMEN: Soft, nontender, nondistended with good bowel sounds heard. BACK: No CVAT, no obvious deformity. EXTREMITIES: Without cyanosis, clubbing or edema. NEUROLOGICAL: Grossly nonfocal. Alert and oriented, moving all 4 extremities. CN not formally tested but appear grossly intact. Skin: Warm and dry without any rash. Principal Diagnosis Febrile neutropenia Discharge Exam Constitutional: WD/WN, vitals as above, NAD, sitting up in bed, pleasant, conversing easily Respiratory: normal respiratory effort, lungs clear to auscultation, no wheeze, rales, rhonchi. Normal insp/exp effort, no accessory muscle use Cardiovascular: RRR, no murmur, no edema Vessels: no JVD or carotid bruit Chest: normal inspection of chest Abdomen: normal bowel sounds, soft, nontender, no hepatosplenomegaly Musculoskeletal: no cyanosis or clubbing, extremities motor strength 5/5 Skin: no rashes, warm and dry normal turgor Neurologic: PERRL, EOMI, accommodation nl, no face palsy, no dysarthria CN's II- XI intact bilaterally and moves all extremities Psychiatric: A+Ox3, euthymic affect Discharge Data Allergies Allergy/AdvReac Type Severity Reaction Status Date / Time vancomycin Allergy Mild Itching Verified 10/08/24 19:15 Consultations 12/09/24 17:00 ED Decision to Admit Stat Hospital Course (1) Triple negative breast cancer: (2) Severe neutropenia: (3) Depression: Plan 49 year old female with PMH significant for triple negative grade 3 left breast invasive ductal carcinoma with left axillary and left internal mammary lymph node involvement, history of chemotherapy-induced neutropenic fever and depression who presented to the ED for evaluation of a low grade fever and is admitted for chemotherapy-induced neutropenic fever. Antineoplastic chemotherapy induced pancytopenia Seen at outpatient Heme/Onc clinic on 12/09 with extreme fatigue, dizziness, nausea, and chills and found to have low grade temp of 37.6 Referred to the ED for further evaluation Labs in ED revealed WBC 0.57 with 19.2% neut for total ANC of 109 Patient was admitted to medical floor; underwent infectious workup including chest x-ray, blood culture which was negative. She was placed on empiric antibiotic during the course of the hospitalization. Patient did not have any recurrence of fever. Her WBC count slightly improved to 0.7 at the time of the discharge. Patient reported significant improvement in her energy level. Patient was discharged home on 3 more days of empiric levofloxacin with instruction to follow-up with PCP to repeat CBC With differential Please note the above document was generated using voice recognition software. It may contain grammatical, syntax or spelling errors. Any formal questions or concerns about the content, text or information contained within the body of this dictation should be directly addressed to the provider for clarification Total Time Total Time Spent Total Time Spent (In Minutes): 45 Total Time Includes: Examination of the Patient, Discharge Planning, Medication Reconciliation, Communication With Other Providers and Other Discharge Plan Discharge Items Patient Disposition: Home - Self-Care Reason For Visit: NEUTROPENIC FEVER Discharge Diagnosis: Neutropenic fever Condition on Discharge: Fair Activity: Resume your previous activity Non-emergency contact: Primary Care Provider Call non-emergency contact if: you have any medication questions and your symptoms worsen Follow-up/Referrals: Samm Costa MD [Primary Care Provider] - (Date & Time 12/20/2024 10:20 AM Provider: Jewell Leyva PA-C [facility] ) Diet: Regular Addtl Attending Provider Instructions: You were admitted to the hospital due to febrile neutropenia. You are prescribed levofloxacin 750 mg once a day for 3 more days to complete the antibiotic course. An appointment has been set up with your primary care doctor to repeat the blood work. If you experience fever, chills, cough, shortness of breath, severe abdominal pain or urinary symptoms; please seek medical attention immediately. Pending Studies at Discharge: No Stand-Alone Forms: [employer] Smoking Cessation Medications and DC Order Prescriptions: New levofloxacin 750 mg tablet 750 mg PO DAILY 3 Days Qty: 3 0RF Continued paroxetine HCl 40 mg tablet 40 mg PO DAILY sennosides [Senokot] 8.6 mg Tablet 8.6 mg PO DAILY vitamin B complex Capsule 1 cap PO DAILY cholecalciferol (vitamin D3) [Vitamin D3] 25 mcg (1,000 unit) Capsule 25 mcg PO DAILY olanzapine 10 mg tablet 10 mg PO HS Discharge Orders: Discharge Order (Routine); Ordered 12/11/24 Ordered By: Boom Villarreal/Other Patient Handouts: Levofloxacin Oral Tablet, Neutropenia Admission Data Admit Date/Time: 12/09/24 17:52 Attending Provider: Boom Hilario Admit Provider: Ester Vera Primary Care Provider: Samm Costa Other Providers: Ester Vera Other Interventions: Discharge Summary Assessment (RN) Last Done: 12/11/24 09:29
== END 2024-12-11 10:15 | disposition home or self-care (01) ==
LOC: ED 14:33 → 2W 17:52 → SUATTDRO 17:52 → 2W 20:01